=== PATIENT | male | born 1975 | race Caucasian/White ===

== ENCOUNTER → 2018-01-22 | Outpatient (CLI) | payer OTHER ==
[~2018-01-22] MED LIST: SULF1TAB35 PO
--- NOTE | 2018-01-22 17:49 | Diagnostic Imaging Report ---
PROCEDURE: MR imaging of the brain without contrast. TECHNIQUE: Multiplanar, multisequence MR imaging of the brain was performed without contrast. INDICATION: Head pain, dizziness, pain along the right. FINDINGS: There are no findings of acute or subacute ischemia. There is no intracranial hemorrhage. There is no mass or mass effect. There are no abnormal extra-axial fluid collections, and there is no evidence for an elevation of the intracerebral pressures. Orbits and paranasal sinuses are nonacute. The basilar cisterns are patent. The sulci are non-effaced. No suspicious white matter disease. IMPRESSION: Unremarkable noncontrast-enhanced brain MRI. Dictated by: Dictated on workstation # [id number]
== END ==
LOC: RAD 15:47
PROVIDERS: ATTEND Otolaryngology Otolaryngology/Facial Plastic Surgery
DX: J38.00 Paralysis of vocal cords and larynx, unspecified (principal); R42 Dizziness and giddiness; R51 Headache
CPT/HCPCS: 70551

== ENCOUNTER 2018-01-23 17:30 | Emergency (ER) | payer OTHER ==
[~2018-01-23] VITALS: Ht 198.1 cm; Wt 83.9 kg
[~2018-01-23 17:30] MED LIST changes: -CATHETER FLUSH 10 ML SYR IV PRN; -IOHEXOL 350 MG/ML 100 ML (OMNIPAQUE 350) VIAL IV ONE; -NS 250 ML (IVPB) BAG IV ONE
[2018-01-23] MEDS ORDERED: NS IV 1000 ML 1,000 ML IV SCH (18:15)
[2018-01-23] MEDS ORDERED: fentaNYL INJECTION 100 MCG/2 ML AMP IVP ONE ×2 (18:15→22:00)
--- NOTE | 2018-01-23 18:19 | ED EENT ---
History of Present Illness General Chief Complaint: Oral/Throat Problems Stated Complaint: THROAT PROBLEMS Nursing Triage Note: Pt was seen at Dr. Yun's office today for loss of voice. Pt had CT scan done here today. Pt has mass in throat and is scheduled to have biopsy done tomorrow. Source: patient Exam Limitations: no limitations History of Present Illness Date Seen by Provider: Jan 23, 2018 Time Seen by Provider: 18:15 Initial Comments Patient presents to the emergency room with reports of mass in the throat. He saw Dr. Yun for loss of voice 3 weeks. He does smoke 1.5 packs of cigarettes per day for greater than 20 years. He's been unable to eat much or drink much over the past few days due to the pain and difficulty swallowing. He also reports pain right shoulder/scapular area. No shortness of breath. No fevers. As part of his workup today with Dr. Yun he had an MRI brain which was unremarkable CT scan of the neck soft tissue with contrast showing trade of soft tissue mass in the right neck and right supraclavicular region with mass effect on the airway. Timing/Duration: other Severity: moderate Location: throat Associated Symptoms: cough Allergies and Home Medications Allergies Coded Allergies: No Known Drug Allergies (Unverified , 03/30/16) Patient Home Medication List Home Medication List Reviewed: Yes Review of Systems Constitutional: see HPI Eyes: No Symptoms Reported Ears: No Symptoms Reported Nose: no symptoms reported Mouth: no symptoms reported Throat: see HPI, pain (and 200), hoarse, aphonia, painful swallowing Respiratory: no symptoms reported Musculoskeletal: no symptoms reported Skin: no symptoms reported Neurological: No Symptoms Reported Hematologic/Lymphatic: No Symptoms Reported Immunological/Allergic: no symptoms reported Past Djlsoee-Gkfbno-Mkgrpy Hx Patient Social History Recent Foreign Travel: No Contact w/Someone Who Travel: No Recent Infectious Disease Expo: No Immunizations Up To Date Tetanus Booster (TDap): Unknown Reproductive System Hx Reproductive Disorders: No Sexually Transmitted Disease: No Family Medical History Significant Family History: No Pertinent Family Hx Physical Exam Vital Signs Vital Signs - First Documented 01/23/18 17:55 Temp 98.5 Pulse 112 Resp 18 B/P (MAP) 116/80 (92) Pulse Ox 96 O2 Delivery Room Air General Appearance: WD/WN, no apparent distress Eyes: bilateral eye normal inspection, bilateral eye PERRL, bilateral eye EOMI Ears: bilateral ear auricle normal, bilateral ear canal normal, bilateral ear TM normal Nose: normal inspection, active bleeding Mouth/Throat: normal mouth inspection Neck: full range of motion, tender lateral, tender midline, other (There is jugular vein distention on the right) Cardiovascular: regular rate, rhythm, no murmur Respiratory: lungs clear, normal breath sounds, no respiratory distress, no accessory muscle use Gastrointestinal: normal bowel sounds, non tender, soft Neurologic/Psychiatric: alert, normal mood/affect, oriented x 3 Skin: normal color, warm/dry Laceration Repair : Suture Size: 4-0 Progress/Results/Core Measures Results/Orders Lab Results Laboratory Tests Test 01/23/18 18:18 Range/Units White Blood Count 19.8 H 4.3-11.0 10^3/uL Red Blood Count 4.85 4.35-5.85 10^6/uL Hemoglobin 14.9 13.3-17.7 G/DL Hematocrit 44 40-54 % Mean Corpuscular Volume 90 80-99 FL Mean Corpuscular Hemoglobin 31 25-34 PG Mean Corpuscular Hemoglobin Concent 34 32-36 G/DL Red Cell Distribution Width 14.0 10.0-14.5 % Platelet Count 206 130-400 10^3/uL Mean Platelet Volume 9.8 7.4-10.4 FL Neutrophils (%) (Auto) 88 H 42-75 % Lymphocytes (%) (Auto) 4 L 12-44 % Monocytes (%) (Auto) 7 0-12 % Eosinophils (%) (Auto) 1 0-10 % Basophils (%) (Auto) 0 0-10 % Neutrophils # (Auto) 17.5 H 1.8-7.8 X 10^3 Lymphocytes # (Auto) 0.9 L 1.0-4.0 X 10^3 Monocytes # (Auto) 1.3 H 0.0-1.0 X 10^3 Eosinophils # (Auto) 0.2 0.0-0.3 10^3/uL Basophils # (Auto) 0.0 0.0-0.1 10^3/uL Neutrophils % (Manual) 86 % Lymphocytes % (Manual) 7 % Monocytes % (Manual) 2 % Eosinophils % (Manual) 1 % Basophils % (Manual) 0 % Band Neutrophils 4 % Blood Morphology Comment NORMAL Sodium Level 134 L 135-145 MMOL/L Potassium Level 4.5 3.6-5.0 MMOL/L Chloride Level 100 98-107 MMOL/L Carbon Dioxide Level 24 21-32 MMOL/L Anion Gap 10 5-14 MMOL/L Blood Urea Nitrogen 12 7-18 MG/DL Creatinine 0.96 0.60-1.30 MG/DL Estimat Glomerular Filtration Rate > 60 BUN/Creatinine Ratio 13 Glucose Level 94 70-105 MG/DL Calcium Level 9.8 8.5-10.1 MG/DL Total Bilirubin 0.8 0.1-1.0 MG/DL Aspartate Amino Transf (AST/SGOT) 19 5-34 U/L Alanine Aminotransferase (ALT/SGPT) 14 0-55 U/L Alkaline Phosphatase 105 40-136 U/L Total Protein 7.8 6.4-8.2 GM/DL Albumin 4.2 3.2-4.5 GM/DL My Orders Orders - FRANCIS TORRES [employer] Cbc With Automated Diff (01/23/18 18:04) Comprehensive Metabolic Panel (01/23/18 18:04) Saline Lock/Iv-Start (01/23/18 18:04) Ct Chest/Abdomen/Pelvis W (01/23/18 18:04) Fentanyl Injection (Sublimaze Injection (01/23/18 18:15) Ns Iv 1000 Ml (Sodium Chloride 0.9%) (01/23/18 18:15) Iohexol Injection (Omnipaque 350 Mg/Ml 1 (01/23/18 18:30) Ns (Ivpb) (Sodium Chloride 0.9%) (01/23/18 18:30) Pharmacy Communication (Pharmacy Communi (01/23/18 18:20) Manual Differential (01/23/18 18:18) Hydrocodone/Apap 5/325 Tablet (Lortab 5 (01/23/18 21:18) Fentanyl Injection (Sublimaze Injection (01/23/18 21:40) Fentanyl Injection (Sublimaze Injection (01/23/18 22:00) Medications Given in ED Current Medications Medications Dose Ordered Sig/Teofilo Route Start Time Stop Time Status Last Admin Dose Admin Fentanyl Citrate 50 mcg ONCE ONCE IVP 01/23/18 18:15 01/23/18 18:16 DC 01/23/18 19:01 50 MCG Fentanyl Citrate 50 mcg ONCE ONCE IVP 01/23/18 22:00 01/23/18 22:01 DC 01/23/18 21:45 50 MCG Iohexol 100 ml ONCE ONCE IV 01/23/18 18:30 01/23/18 18:31 DC 01/23/18 18:37 100 ML Sodium Chloride 250 ml ONCE ONCE IV 01/23/18 18:30 01/23/18 18:31 DC 01/23/18 18:37 80 ML Vital Signs/I&O Vital Sign - Last 12Hours 01/23/18 01/23/18 17:55 22:18 Temp 98.5 Pulse 112 70 Resp 18 18 B/P (MAP) 116/80 (92) 116/80 Pulse Ox 96 100 O2 Delivery Room Air Room Air Blood Pressure Mean: 92 Diagnostic Imaging Diagonstic Imaging: CT Comments NAME: DAVID HARRIS [facility] REC#: [id number] PT STATUS: REG CLI : 1975 PHYSICIAN: TAYLOR YUN MD ADMIT DATE: 01/23/18/RAD Signed Date of Exam: 01/23/18 CT NECK (SOFT TISSUE) W PROCEDURE: CT neck soft tissue with contrast. TECHNIQUE: Multiple contiguous axial images were obtained through the neck after the administration of contrast. INDICATION: Hoarseness and right-sided neck pain. COMPARISON: No prior studies are available for comparison. FINDINGS: The visualized intracranial structures are unremarkable. The posterior nasopharynx and oropharynx as well as the larynx are unremarkable. There appears to be a partially necrotic lymph node on the right, posterior to the right carotid and jugular vein, at the level of the thyroid cartilage measuring 2 cm in AP diameter. There is some edema in the retropharyngeal tissues. There is an infiltrative soft tissue mass identified in the lower right neck, which does produce some mass effect on the right lobe of the thyroid gland, and extends to the right supraclavicular region and into the mediastinum. This mass appears to encase and likely occlude the lower portion of the jugular vein. The mass does displace the carotid medially. In addition, there is significant mass effect upon the trachea which is displaced to the left and narrowed. The transverse dimension of the trachea is approximately 8 mm. This infiltrative process extends into the upper mediastinum. There is encasement of the great vessels. There appears to be significant mass effect on the right subclavian vein. No imaging was performed below the level of the aortic arch. Maximum transverse dimension of this infiltrative process is approximately 10.8 cm at the level of the arch. Submandibular and parotid glands are symmetric bilaterally. No discrete thyroid mass is seen. IMPRESSION: Infiltrative soft tissue mass in the right neck and right supraclavicular region is inseparable from the upper anterior and middle mediastinum. 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 This does exert mass effect on the airway. There is also significant mass effect on the upper thoracic esophagus. NAME: DAVID HARRIS [facility] REC#: [id number] PHYSICIAN: TAYLOR YUN MD CC: TAYLOR YUN MD; LINDA ROD Page 1 of 1 RADIOLOGY REPORT VIA [facility], [facility]. [place], [place] CC: TAYLOR YUN MD; LINDA ROD Page 1 of 1 RADIOLOGY REPORT NAME: HARRISDAVID A MED REC#: [id number] PT STATUS: REG CLI : 1975 PHYSICIAN: TAYLOR YUN MD ADMIT DATE: 01/22/18/RAD Signed Date of Exam: 01/22/18 MRI BRAIN W/O CONTRAST PROCEDURE: MR imaging of the brain without contrast. TECHNIQUE: Multiplanar, multisequence MR imaging of the brain was performed without contrast. INDICATION: Head pain, dizziness, pain along the right. FINDINGS: There are no findings of acute or subacute ischemia. There is no intracranial hemorrhage. There is no mass or mass effect. There are no abnormal extra-axial fluid collections, and there is no evidence for an elevation of the intracerebral pressures. Orbits and paranasal sinuses are nonacute. The basilar cisterns are patent. The sulci are non-effaced. No suspicious white matter disease. IMPRESSION: Unremarkable noncontrast-enhanced brain MRI. Dictated by: Dictated on workstation # [id number] Dict: 01/22/181727 Trans: 01/22/181939 Interpreted by: LINDA ROD Electronically signed by: LINDA ROD 01/22/181939 NAME: ROWAN HARRISANGELICA Santacruz MED REC#: [id number] PT STATUS: REG ER : 1975 PHYSICIAN: FRANCIS TORRES APRN ADMIT DATE: 01/23/18/ER Signed Date of Exam:01/23/18 CT CHEST/ABDOMEN/PELVIS W PROCEDURE: CT chest, abdomen, and pelvis with contrast. TECHNIQUE: Multiple contiguous axial images were obtained through the chest, abdomen, and pelvis after the administration of intravenous contrast. INDICATION: Mediastinal mass. FINDINGS: There is a diffusely infiltrative mass involving the mediastinum, hilar, and subcarinal regions. This is difficult to measure. This completely encases the origin of the great vessels and partially encases the ascending aorta. Mass also encases the main pulmonary artery. The heart size is normal. There is a small right pleural effusion. There is no pneumothorax. There are no discrete pulmonary nodules, masses, or infiltrates. There is no pneumothorax. The liver is normal in size and without focal lesions. Gallbladder is unremarkable. There is no biliary ductal dilatation. Spleen is normal. The pancreas, adrenal glands, and kidneys are unremarkable. Bowel gas pattern is nonspecific. Bladder is normal. There is no pelvic mass or adenopathy. There is no ascites. There is no free air. There are no focal inflammatory changes. There are several upper thoracic vertebral bodies which contain some sclerotic foci. Possibility of metastatic disease cannot be excluded. IMPRESSION: 1. Infiltrating mass involving the mediastinum, subcarinal, and hilar regions bilaterally. This is highly suspect for neoplasm, possibly lymphoma. Mass partially encases the ascending aorta and almost completely encases the main pulmonary artery. The trachea is also encompassed and is narrowed laterally. Trachea is narrowed to approximately 6 mm at the level of the clavicular heads. Further evaluation with biopsy is recommended. 2. Small right pleural effusion. 3. Sclerotic foci in several upper thoracic vertebral bodies, suspect for metastatic disease. Recommend clinical correlation and if warranted, followup with bone scan. Dictated by: Dictated on workstation # [id number] Dict: 01/23/181846 Trans: 01/23/181899 [id number] Interpreted by: SARA MALDONADO MD Electronically signed by: SARA MALDONADO MD 01/23/181899 Departure Communication (Admissions) Progress Notes 1921- discussed the case with Dr. Mayberry here for hospitalist. She would like this to him and transferred to a tertiary care center. Will arrange transfer to . Dr Yun notified as well. 2043- [facility] Dr. [place] has accepted the patient. He will go to medical telemetry bed by private vehicle. Impression Impression: Primary Impression: Mediastinal mass Additional Impressions: Dysphagia Loss of voice Disposition: XFER SHT-TRM HOSP Condition: Stable Departure-Patient Inst. Referrals: NO,LOCAL PHYSICIAN (PCP/Family) Primary Care Physician Copy Copies To 1: TAYLOR YUN MD, PETER J APRN Jan 23, 2018 18:19
[2018-01-23] MEDS ORDERED: NS 250 ML (IVPB) BAG IV ONE (18:30)
[2018-01-23] MEDS ORDERED: IOHEXOL 350 MG/ML 100 ML (OMNIPAQUE 350) VIAL IV ONE (18:30)
[2018-01-23 18:42] LABS: BASOPHILS % (AUTO) 0 % (0-10); EOSINOPHILS # (AUTO) 0.2 10^3/uL (0.0-0.3); EOSINOPHILS % (AUTO) 1 % (0-10); HEMATOCRIT 44 % (40-54); HEMOGLOBIN 14.9 G/DL (13.3-17.7); LYMPHOCYTES # (AUTO) 0.9 X 10^3 (1.0-4.0); LYMPHOCYTES % (AUTO) 4 % (12-44); MEAN CORPUSCULAR HEMOGLOBIN 31 PG (25-34); MEAN CORPUSCULAR HGB CONC 34 G/DL (32-36); MEAN CORPUSCULAR VOLUME 90 FL (80-99); MEAN PLATELET VOLUME 9.8 FL (7.4-10.4); MONOCYTES # (AUTO) 1.3 X 10^3 (0.0-1.0); MONOCYTES % (AUTO) 7 % (0-12); NEUTROPHILS # (AUTO) 17.5 X 10^3 (1.8-7.8); NEUTROPHILS % (AUTO) 88 % (42-75); PLATELET COUNT 206 10^3/uL (130-400); RED BLOOD COUNT 4.85 10^6/uL (4.35-5.85); WHITE BLOOD COUNT 19.8 10^3/uL (4.3-11.0)
[2018-01-23 18:56] LABS: ALANINE AMINOTRANSFERASE 14 U/L (0-55); ALBUMIN 4.2 GM/DL (3.2-4.5); ALKALINE PHOSPHATASE 105 U/L (40-136); BILIRUBIN,TOTAL 0.8 MG/DL (0.1-1.0); BUN/CREATININE RATIO 13; CALCIUM 9.8 MG/DL (8.5-10.1); CARBON DIOXIDE 24 MMOL/L (21-32); CHLORIDE 100 MMOL/L (98-107); CREATININE SERUM 0.96 MG/DL (0.60-1.30); GFR ESTIMATED > 60; GLUCOSE 94 MG/DL (70-105); POTASSIUM 4.5 MMOL/L (3.6-5.0); SODIUM 134 MMOL/L (135-145); TOTAL PROTEIN 7.8 GM/DL (6.4-8.2)
--- NOTE | 2018-01-23 18:58 | Diagnostic Imaging Report ---
PROCEDURE: CT chest, abdomen, and pelvis with contrast. TECHNIQUE: Multiple contiguous axial images were obtained through the chest, abdomen, and pelvis after the administration of intravenous contrast. INDICATION: Mediastinal mass. FINDINGS: There is a diffusely infiltrative mass involving the mediastinum, hilar, and subcarinal regions. This is difficult to measure. This completely encases the origin of the great vessels and partially encases the ascending aorta. Mass also encases the main pulmonary artery. The heart size is normal. There is a small right pleural effusion. There is no pneumothorax. There are no discrete pulmonary nodules, masses, or infiltrates. There is no pneumothorax. The liver is normal in size and without focal lesions. Gallbladder is unremarkable. There is no biliary ductal dilatation. Spleen is normal. The pancreas, adrenal glands, and kidneys are unremarkable. Bowel gas pattern is nonspecific. Bladder is normal. There is no pelvic mass or adenopathy. There is no ascites. There is no free air. There are no focal inflammatory changes. There are several upper thoracic vertebral bodies which contain some sclerotic foci. Possibility of metastatic disease cannot be excluded. IMPRESSION: 1. Infiltrating mass involving the mediastinum, subcarinal, and hilar regions bilaterally. This is highly suspect for neoplasm, possibly lymphoma. Mass partially encases the ascending aorta and almost completely encases the main pulmonary artery. The trachea is also encompassed and is narrowed laterally. Trachea is narrowed to approximately 6 mm at the level of the clavicular heads. Further evaluation with biopsy is recommended. 2. Small right pleural effusion. 3. Sclerotic foci in several upper thoracic vertebral bodies, suspect for metastatic disease. Recommend clinical correlation and if warranted, followup with bone scan. Dictated by: Dictated on workstation # [id number]
[2018-01-23 19:05] LABS: BAND NEUTROPHILS 4 %; BASOPHILS % (MANUAL) 0 %; EOSINOPHILS % (MANUAL) 1 %; LYMPHOCYTES % (MANUAL) 7 %; MONOCYTES % (MANUAL) 2 %; NEUTROPHILS % (MANUAL) 86 %; RBC MORPH NORMAL
[2018-01-23] MEDS: HYDROcodone/APAP 5 MG/325 MG (LORTAB) TAB ONE ×2 (21:24→21:30)
[2018-01-23] MEDS ORDERED: fentaNYL INJECTION 100 MCG/2 ML AMP ONE (21:40)
[2018-01-23 22:18] VITALS: BP 116/80
== END 2018-01-23 22:18 | disposition short-term general hospital (02) ==
LOC: EDUNIT# 17:30 → ER 17:31
DX: J98.59 Other diseases of mediastinum, not elsewhere classified (principal); R13.10 Dysphagia, unspecified; R49.1 Aphonia; F17.210 Nicotine dependence, cigarettes, uncomplicated
CPT/HCPCS: 36415; 71260; 74177; 80053; 85007; 85027; 96361; 96374; 96376

== ENCOUNTER → 2018-01-23 | Outpatient (CLI) | payer OTHER ==
[~2018-01-23] MED LIST changes: +CATHETER FLUSH 10 ML SYR IV PRN; +IOHEXOL 350 MG/ML 100 ML (OMNIPAQUE 350) VIAL IV ONE; +NS 250 ML (IVPB) BAG IV ONE
--- NOTE | 2018-01-23 14:13 | Diagnostic Imaging Report ---
PROCEDURE: CT neck soft tissue with contrast. TECHNIQUE: Multiple contiguous axial images were obtained through the neck after the administration of contrast. INDICATION: Hoarseness and right-sided neck pain. COMPARISON: No prior studies are available for comparison. FINDINGS: The visualized intracranial structures are unremarkable. The posterior nasopharynx and oropharynx as well as the larynx are unremarkable. There appears to be a partially necrotic lymph node on the right, posterior to the right carotid and jugular vein, at the level of the thyroid cartilage measuring 2 cm in AP diameter. There is some edema in the retropharyngeal tissues. There is an infiltrative soft tissue mass identified in the lower right neck, which does produce some mass effect on the right lobe of the thyroid gland, and extends to the right supraclavicular region and into the mediastinum. This mass appears to encase and likely occlude the lower portion of the jugular vein. The mass does displace the carotid medially. In addition, there is significant mass effect upon the trachea which is displaced to the left and narrowed. The transverse dimension of the trachea is approximately 8 mm. This infiltrative process extends into the upper mediastinum. There is encasement of the great vessels. There appears to be significant mass effect on the right subclavian vein. No imaging was performed below the level of the aortic arch. Maximum transverse dimension of this infiltrative process is approximately 10.8 cm at the level of the arch. Submandibular and parotid glands are symmetric bilaterally. No discrete thyroid mass is seen. IMPRESSION: Infiltrative soft tissue mass in the right neck and right supraclavicular region is inseparable from the upper anterior and middle mediastinum. 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 This does exert mass effect on the airway. There is also significant mass effect on the upper thoracic esophagus. Results were called to Dr. Shen Yun prior to this dictation. Dictated by: Dictated on workstation # [id number]
== END ==
LOC: RAD 11:54
PROVIDERS: ATTEND Otolaryngology Otolaryngology/Facial Plastic Surgery
DX: J38.00 Paralysis of vocal cords and larynx, unspecified (principal); R22.1 Localized swelling, mass and lump, neck
CPT/HCPCS: 70491

== ENCOUNTER 2018-03-06 09:51 | Inpatient (IN) | payer OTHER ==
[~2018-03-06] VITALS: Ht 198.1 cm; Wt 72.0 kg
[~2018-03-06 09:51] MED LIST changes: +CLON0.5T3 PEG; +CLON0.5T3 PO; +ENOX80DI7 SQ; +LORA1TAB PEG; +NICO-588 TD; +ONDA8TAB12 PEG; +PROC10TA10 PEG; +RT-ALBUINH IH; +SIME80TA16 PO; +TRAM50TA2 PEG
[2018-03-06 10:00] VITALS: BP 124/86
[2018-03-06] MEDS ORDERED: DOCU50LI PEG (10:51)
[2018-03-06] MEDS ORDERED: HYDR15SO8 PEG (10:51)
[2018-03-06] MEDS ORDERED: ONDA8TAB12 PEG (10:51)
[2018-03-06] MEDS ORDERED: RIVA20TA PEG (10:51)
[2018-03-06] MEDS ORDERED: PRED10TA22 PEG (10:51)
[2018-03-06] MEDS ORDERED: SERT50TA9 PO (10:51)
[2018-03-06] MEDS ORDERED: SCOP1PAT11 TOP (10:51)
[2018-03-06] MEDS ORDERED: IPRA3AMP INH (10:51)
[2018-03-06] MEDS ORDERED: LORA1TAB PEG (10:51)
[2018-03-06] MEDS ORDERED: PROC10TA10 PEG (10:51)
[2018-03-06] MEDS ORDERED: RISP0.253 PO (10:51)
--- NOTE | 2018-03-06 12:59 | Physical Therapy Evaluation ---
PT Evaluation-General Medical Diagnosis Admission Date March 06, 2018 at 11:30 Medical Diagnosis: metastatic lung cancer/pneumonia Onset Date: Feb 15, 2018 Therapy Diagnosis Therapy Diagnosis: generalized weakness/debility Height/Weight Height (Feet): 6 Height (Inches): 6.00 Weight (Pounds): 165 Weight (Ounces): 1.0 Precautions Precautions/Isolations: Standard Precautions Weight Bear Status Right Lower Extremity: Right Full Weight Bearing Left Lower Extremity: Left Full Weight Bearing Referral Physician: Adelso Reason for Referral: Evaluation/Treatment Medical History Pertinent Medical History: Smoking Additional Medical History recent diagnosis of metastatic lung cancer with mass pushing against his esophagus Current History transfer to ARU Reviewed History: Yes Social History Home: Single Level Current Living Status: Spouse Entry Into Home: Stairs With Railing Prior/Core FIM Prior Level of Function Functional Charles Measure 0=Not Assessed/NA 4=Minimal Assistance 1=Total Assistance 5=Supervision or Setup 2=Maximal Assistance 6=Modified Charles 3=Moderate Assistance 7=Complete Charles Bed Mobility: 7 Transfers (B,C,W/C) (FIM): 7 Gait: 7 Locomotion: 7 PT Evaluation-Current Subjective Patient reports fatigue on this date and is requiring O2. Pain Numeric Pain Scale: 5-Moderate Pain Location: Left Location Body Site: Side Pain Description: Pressure Objective Patient Orientation: Normal For Age Problem Solving: Fair Attachments: Oxygen, IV ROM/Strength ROM Lower Extremities bilateral LE WNL Strenght Lower Extremities 3/5 grossly bilateral LE and increase in weakness from initial evaluation in ICU. Integumentary/Posture Integumentary refer to nursing notes Bowel Incontinence: No Bladder Incontinence: No Posture WNL Neuromuscular (Tone, Coordination, Reflexes) grossly intact (he is very deconditioned) Sensory Vision: Wears Glasses Hearing: Functional Sensation Right Lower Extremit: Intact Sensation Left Lower Extremity: Intact Transfers Functional Charles Measure 0=Not Assessed/NA 4=Minimal Assistance 1=Total Assistance 5=Supervision or Setup 2=Maximal Assistance 6=Modified Charles 3=Moderate Assistance 7=Complete IndependenceIRFPAI Quality Coding Scale 6 Independent with activity with or without an assistive device 5 Patient requires set up or clean up by helper. Patient completes activity by themselves 4 Supervision or touching assist (CGA). [place] provide cues , steadying assist 3 The helper provides less than half the effort to complete the activity 2 The helper provides more than half the effort to complete the activity 1 Dependent. The helper does all the effort to complete an activity 7 Patient refused to complete or attempt activity 9 The patient did not perform the activity before the current illness or injury 88 Not attempted due to Medical conditions or safety concerns Transfers (B, C, W/C) (FIM): 4 Scootin Rollin Roll Left to Right (QC): 5 Supine to/from Sit: 4 Sit to/from Stand: 4 bed t/f WC(FIM only if WC use): 4 Sit to Lying (QC): 4 Lying to Sitting/Side of Bed(Q: 4 Sit to Stand (QC): 4 Chair/Kpb-qb-Npvyy Xfer(QC): 4 Car Transfer (QC): 4 Gait Does the Patient Walk?: Yes Mode of Locomotion: Walk Anticipated Mode of Locomotion: Walk Gait (FIM): 1 Distance (FIM): 1=up to 49 ft Walk 10 feet (QC): 4 Walk 50 ft with 2 Turns(QC): 88 Walk 150 ft (QC): 88 Walking 10ft/uneven surface-QC: 4 Distance: 45' x 2 Gait Level of Assist: 4 Gait Persons Needed: 1 Gait Assistive Device: FWW Comments/Gait Description very slow, reciprocal pattern, however, fatigues quickly requiring sitting recovery periods to decrease SOA Stairs Stairs (FIM): 1 #of Steps: 1 Level of Assist: 4 1 Step (curb) (QC): 4 4 Steps (QC): 88 Assistive Device: Walker 12 Steps (QC): 88 Balance Sitting Static: Normal Sitting Dynamic: Normal Standing Static: Fair Standing Dynamic: Fair Picking up an Object (QC): 4 Treatment Gait training with FWW, minimal assist for safety and due to patient LOB with self correction. Patient ambulated 45' x 2 minimal assist. Assessment/Needs 42 y.o. male, will benefit from skilled PT to address functional strength and mobility to improve current LOF. Patient is very limited at this time due to medical status and extended ICU stay due to respiratory issues. Rehab Potential: Guarded Post Rehab Potential-Barriers: metastatic cancer PT [facility] Goals Publicity Consultant Goals PT Publicity Consultant Goals Time Frame: Mar 28, 2018 Transfers (B,C,W/C) (FIM): 6 Sit to Lying (QC): 6 Lying-Sitting on Side/Bed(QC): 6 Sit to Stand (QC): 6 Rollin Roll Left to Right (QC): 6 Chair/Gfc-gm-Ynjxx Xfer(QC): 6 Car Transfer (QC): 6 Does the Patient Walk: Yes Gait (FIM): 6 Gait distance (FIM): 3=150 ft Distance: 150' Walk 10 feet (QC): 6 Walk 10ft-Uneven Surface(QC): 6 Walk 50ft with 2 Turns (QC): 6 Walk 150 ft (QC): 6 Gait Level of Assist: 6 Gait Assistive Device: FWW, Cane Single Point Stairs (FIM): 5 # of Steps: 5 1 Step (curb) (QC): 5 4 Steps (QC): 5 12 Steps (QC): 5 Stairs Level Of Assist: 5 Picking up an Object (QC): 5 PT Plan Problem List Problem List: Activity Tolerance, Functional Strength, Balance, Gait, Transfer , Bed Mobility Treatment/Plan Treatment Plan: Continue Plan of Care Treatment Plan: Bed Mobility, Education, Functional Activity Isaiah, Functional Strength, Group Therapy, Gait, Safety, Therapeutic Exercise, Transfers Treatment Duration: Mar 28, 2018 Frequency: At least 5 of 7 days/Wk (IRF) Estimated Hrs Per Day: 1.5 hours per day Patient and/or Family Agrees t: Yes Safety Risks/Education Patient Education: Gait Training, Safety Issues Teaching Recipient: Patient Teaching Methods: Demonstration, Discussion Response to Teaching: Verbalize Understanding, Return Demonstration Discharge Recommendations Therapy D/C Recommendations: Home w/ Family Support, Physical Therapy Home Care Time/GCodes Time In: 1130 Time Out: 1230 Total Billed Treatment Time: 60 [facility] HELEN NG PT March 06, 2018 12:59
[2018-03-06] MEDS ORDERED: LORazepam INJ 2 MG/ML (ATIVAN) VIAL IVP PRN (13:00)
[2018-03-06] MEDS: LORazepam INJ 2 MG/ML (ATIVAN) VIAL IVP PRN ×2 (13:14→22:48)
[2018-03-06] MEDS ORDERED: CLON0.5T3 PO (13:21)
[2018-03-06] MEDS ORDERED: NICO-588 TD (13:21)
[2018-03-06] MEDS ORDERED: TRAM50TA2 PO (13:21)
[2018-03-06] MEDS ORDERED: SIME80TA16 PEG (13:21)
[2018-03-06] MEDS ORDERED: RT-ALBUINH IH (13:21)
[2018-03-06] MEDS: HYDROmorphone 1 MG/ML (DILAUDID) 1 ML SYRINGE IV PRN ×2 (14:26→20:01)
[2018-03-06] MEDS ORDERED: PROCHLORPERAZINE 10 MG TAB (COMPAZINE) PEG PRN (14:30)
[2018-03-06] MEDS ORDERED: ONDANSETRON 4 MG/5 ML ORAL SOLN (ZOFRAN) 5 ML PEG PRN (14:30)
--- NOTE | 2018-03-06 14:34 | Physical Therapy Daily Note ---
PT Daily Note-Current Subjective Patient reports fatigue. Agrees to exercises. Pain Numeric Pain Scale: 0-No Pain Location: No Pain Reported Mental Status Patient Orientation: Normal For Age Attachments: Oxygen, PEG Tube, IV Transfers Functional [place] Measure 0=Not Assessed/NA 4=Minimal Assistance 1=Total Assistance 5=Supervision or Setup 2=Maximal Assistance 6=Modified [place] 3=Moderate Assistance 7=Complete IndependenceIRFPAI Quality Coding Scale 6 Independent with activity with or without an assistive device 5 Patient requires set up or clean up by helper. Patient completes activity by themselves 4 Supervision or touching assist (CGA). Johnson provide cues , steadying assist 3 The helper provides less than half the effort to complete the activity 2 The helper provides more than half the effort to complete the activity 1 Dependent. The helper does all the effort to complete an activity 7 Patient refused to complete or attempt activity 9 The patient did not perform the activity before the current illness or injury 88 Not attempted due to Medical conditions or safety concerns Transfers (B, C, W/C) (FIM): 4 Scootin Rollin Roll Left to Right (QC): 5 Supine to/from Sit: 5 Sit to/from Stand: 4 Sit to Lying (QC): 5 Sit to Stand (QC): 4 Chair/Kus-rj-Onuvg Xfer(QC): 4 Bed to/from Chair: 4 minimal assist with sit to stand and SPT w/c to bed. Weight Bearing Right Lower Extremity: Right Full Weight Bearing Left Lower Extremity: Left Full Weight Bearing Exercises Supine Ex: Ankle pumps, Quad Set, Heel Slides, Straight leg raise, Hip abd/add Supine Reps: 10 (AAROM bilaterally with recovery periods due to weakness/ fatigue) Assessment Patient tolerated treatment and is in bed with needs met. PT Alf Goals Alf Goals PT Supervisor Display Fabrication Goals Time Frame: Mar 28, 2018 Transfers (B,C,W/C) (FIM): 6 Sit to Lying (QC): 6 Lying-Sitting on Side/Bed(QC): 6 Sit to Stand (QC): 6 Rollin Roll Left to Right (QC): 6 Chair/Qfa-jm-Krmnc Xfer(QC): 6 Car Transfer (QC): 6 Does the Patient Walk: Yes Gait (FIM): 6 Gait distance (FIM): 3=150 ft Distance: 150' Walk 10 feet (QC): 6 Walk 10ft-Uneven Surface(QC): 6 Walk 50ft with 2 Turns (QC): 6 Walk 150 ft (QC): 6 Gait Level of Assist: 6 Gait Assistive Device: FWW, Cane Single Point Stairs (FIM): 5 # of Steps: 5 1 Step (curb) (QC): 5 4 Steps (QC): 5 12 Steps (QC): 5 Stairs Level Of Assist: 5 Picking up an Object (QC): 5 PT Plan Treatment/Plan Treatment Plan: Continue Plan of Care Treatment Plan: Bed Mobility, Education, Functional Activity Isaiah, Functional Strength, Group Therapy, Gait, Safety, Therapeutic Exercise, Transfers Treatment Duration: Mar 28, 2018 Frequency: At least 5 of 7 days/Wk (IRF) Estimated Hrs Per Day: 1.5 hours per day Patient and/or Family Agrees t: Yes Time/GCodes Time In: 1415 Time Out: 1430 Total Billed Treatment Time: 15 Total Billed Treatment 1 visit EX 15 min HELEN NG PT March 06, 2018 14:34
[2018-03-06] MEDS: CATHETER FLUSH 10 ML SYR IV SCH ×2 (14:42→20:01)
--- NOTE | 2018-03-06 15:43 | Occupational Therapy Eval ---
OT Evaluation-General/PLF Medical Diagnosis Admission Date March 06, 2018 at 11:30 Medical Diagnosis: metastatic lung cancer/pneumonia Onset Date: Feb 15, 2018 Therapy Diagnosis Therapy Diagnosis: decr self care, weakness, decr act evelia, decr funct mobility Height/Weight Height (Feet): 6 Height (Inches): 6.00 Weight (Pounds): 159 Weight (Ounces): 6.0 Precautions Precautions/Isolations: Standard Precautions Comments Pt is NPO at this time Referral Physician: Adelso Referral Reason: Evaluation/Treatment Medical History Pertinent Medical History: Smoking Additional Medical History Recent diagnosis of lung cancer, mass encroaching on trachea and esophagus. Vocal cord paralysis. Feeding tube. DC from on , had chemo and radiation there. Current History Trach came oout and kelle couldn't get it back in so came to hospital. Per EMS , with fever, pneumonia,anemia. 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 Drove. 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 Pain rated 2-3 in left abdomen, described as aching. Appearance Alert, cooperative, whispers Mental Status/Objective Attachments: IV, Oxygen (over trach), PEG Tube, Telemetry Current Glasses/Contacts: Yes Hearing Aids: No Dentures/Partials: Yes (upper) Hand Dominance: Right Upper Extremity ROM Grossly WFl bilat but limited by edema in bilat UEs Upper Extremity Strength grossly 4/5 bilat, with decreased activity tolerance Edema: Edema bilat UEs, has decreased from ICU admission ADL-Treatment ADL-Current Room set up with BSC, for use either in his room or in bathroom, depending on adaptability of tubings and cables. Functional [place] Measure 0=Not Assessed/NA 4=Minimal Assistance 1=Total Assistance 5=Supervision or Setup 2=Maximal Assistance 6=Modified [place] 3=Moderate Assistance 7=Complete IndependenceIRFPAI Quality Coding Scale 6 Independent with activity with or without an assistive device 5 Patient requires set up or clean up by helper. Patient completes activity by themselves 4 Supervision or touching assist (CGA). [place] provide cues , steadying assist 3 The helper provides less than half the effort to complete the activity 2 The helper provides more than half the effort to complete the activity 1 Dependent. The helper does all the effort to complete an activity 7 Patient refused to complete or attempt activity 9 The patient did not perform the activity before the current illness or injury 88 Not attempted due to Medical conditions or safety concerns Eating (FIM): 1 (Pt as tube feedings and is unable to manage them himself) Eating (QC): 1 Other Treatments Pt able to move from supine to sit EOB with SBA and held pt manage tubes and wires. Sit to stand with min assist, FWW. Transfer to w/c with min assist, a little help moving walker. Cues for hand placement for sitting. Pt needed to be up in w/c for transport cancer center for mapping for radiation tx. Pt very fatigued after transfer and needed recovery period. Pt left up in w/c, all needs met. Education OT Patient Education: Purpose of tx/functional activities, Reviewed precautions , Rehab process, Safety issues, Transfer techniques Teaching Recipient: Patient Teaching Methods: Discussion Response to Teaching: Verbalize Understanding OT Short Term Goals Short Term Goals Time Frame: March 14, 2018 Toileting(FIM): 5 Toilet/Commode Transfer(FIM): 5 Additional Short Term Goals: 1-Demonstrate ADL Tasks, 2-Verbalize Understanding , 3-ImproveStrength/Isaiah 1=Demonstrate adherence to instructed precautions during ADL tasks. 2=Patient will verbalize/demonstrate understanding of assistive devices/ modifications for ADL. 3=Patient will improve strength/tolerance for activity to enable patient to perform ADL's. OT Mechanical Engineering Manager Goals Intermediate Goals Time Frame: Mar 28, 2018 Eating (FIM): 6 Eating (QC): 6 Groomin Oral Hygiene (QC): 6 Bathing(FIM): 6 Shower/Bathe Self (QC): 6 Upper Body Dressing(FIM): 6 Upper Body Dressing (QC): 6 Lower Body Dressing(FIM): 6 Lower Body Dressing (QC): 6 On/Off Footwear (QC): 6 Toileting(FIM): 6 Toileting Hygiene (QC): 6 Toilet/Commode Transfer(FIM): 6 Toilet/Commode Transfer (QC): 6 Tub Transfer(FIM): 6 (or shower) Shower Transfer(FIM): 6 (or tub) Additional Goals: 1-Demonstrate ADL Tasks, 2-Verbalize Understanding, 3- ImproveStrength/Isaiah 1=Demonstrate adherence to instructed precautions during ADL tasks. 2=Patient will verbalize/demonstrate understanding of assistive devices/ modifications for ADL. 3=Patient will improve strength/tolerance for activity to enable patient to perform ADL's. OT Education/Plan Problem List/Assessment Assessment: Decreased Activ Tolerance, Decreased UE Strength, Dependent Transfers, Impaired Funct Balance, Impaired Self-Care Skills Pt would benefit from skilled OT to increase his independence in basic self care to allow him to safely return home. Discharge Recommendations Plan/Recommendations: Continue POC Treatment Plan/Plan of Care Treatment,Training & Education: Yes Patient would benefit from OT for education, treatment and training to promote independence in ADL's, mobility, safety and/or upper extremity function for ADL' s. Plan of Care: ADL Retraining, Caregiver Training, Functional Mobility, Group Exercise/Act as Ind (education, exercise, activity tolerance, funct activities) , UE Funct Exercise/Act, UE Neuromus Re-Ed/Coord, OTHER (edema management) Treatment Duration: Mar 28, 2018 Frequency: Modified Program (IRF) Estimated Hrs Per Day: 1.5 hours per day Agreement: Yes Rehab Potential: Poor Time/GCodes Start Time: 12:30 Stop Time: 13:00 Total Time Billed (hr/min): 30 Billed Treatment Time visit, 15 minutes evaluation moderate intensity, 15 minutes functional activity KERWIN GARCIAS OT March 06, 2018 15:43
--- NOTE | 2018-03-06 16:31 | ST Cognitive Linguistic Eval ---
Speech Evaluation-General Medical Diagnosis Metastatic Lung Cancer/Pneumonia Onset Date: Feb 15, 2018 Therapy Diagnosis Therapy Diagnosis: Cognitive Linguistic Skill WNL, Aphonia Precautions Precautions/Isolations: Standard Precautions Referral Referring Physician: Dr. Nicanor Darden Reason for Referral: Evaluation/Treatment Cognitive, Voice, Speech, and Language Evaluation Medical History Pertinent Medical History: Smoking Current History The patient was recently admitted to [facility] with a diagnosis of metastatic lung cancer and tracheostomy malfunction. Due to respiratory effort, he was placed on the ventilator for support, however, was recently removed. Reviewed History: Yes Social History Current Living Status: Spouse Speech PLF-Current Status Prior Level of Function The patient denied prior challenges with speech, language, or cognition. Subjective The patient was seated upright in bed upon entrance. The patient greeted the patient appropriately and was agreeable to participation in the cognitive, speech, voice, and language assessment. Language Eval: Auditory Comprehends Simple Yes/No Ques: Functional Indent/Objects Multiple Mixon: Functional Ident/Pics in Multiple Mixon: Functional Follows 1-Step Commands: Functional Follows Complex Directions: Functional Follows General Conversations: Functional Language Eval: Verbal Language Completes Spontaneous Greeting: Functional Produces Auto, Serial Info: Functional Imitates Simple Words/Phrases: Functional Word Finding: Functional Requests Basic Needs: Functional States Basic Personal Info: Functional Expresses Complex Ideas: Functional Cognitive Patient Orientation The patient was independently oriented to self, location, month, day of week, date, and year. Objective Cognitive Domain Attention: WNL Memory: WNL Problem Solving: Functional Executive Functions: WNL Objective Oral Motor/Speech Production The patient has a #6 Shiley cuffed tracheostomy tube in place. The cuff is currently deflated. Additionally, a venti-mask is placed on the tracheostomy site for improved humidification. At this time, the patient is aphonic due to tracheostomy placement. Per patient, he has attempted digital occlusion, however , has been unsuccessful at voicing. The patient over-articulates words well, which does aid in intelligibility. Impression The patient displays cognitive linguistic skills within normal limits. The patient demonstrates aphonia secondary to the placement of the tracheostomy tube. Communication/Social Cognition Comprehension: 6 (The patient wears glasses.) Expression: 6 (The patient complex information thoroughly to the clinician, however, due to aphonia would benefit from augmentative devices (dry erase board , [place] Speaking Valve).) Social Interaction: 6 (Anti-Depressant) Problem Solvin Memory: 7 Speech Patient Assess Expression of Ideas/Wants: Expression (4) Understanding Vebal Content: Understands (4) Brief Interview-Mental Status: Yes Repetition of Three Words: Three (3) Temporal Orientation: Year: Correct (3) Temporal Orientation: Month: Accurate within 5 days(2) Temporal Orientation: Day: Correct (1) Recall : Wear to say "Sock": Yes, no cue required (2) Recall : Color: Yes, no cue required (2) Recall : Bed: Yes, no cue required (2) Speech Short Term Goals Short Term Goals Short Term Goals 1. The patient will tolerate trials of the [place] Speaking Valve for a duration of two minutes. Time Frame-STG: One Week Speech Registered Dental Hygienist Goals Half-Way Goals 1. The patient will independently don his [place] Speaking Valve. 2. The patient will tolerate placement of the Passy-Arely Speaking Valve indefinitely with the exception of periods of sleep or high exertion. Time Frame: Three Weeks Comprehension: 6 (The patient's FIM score will not improve as he will conistently require glasses.) Expression: 6 (The patient's FIM score will not improve as he will consistently required a Passy Arely Valve for improved intelligibility due to tracheostomy.) Social Interaction: 6 (The patient's FIM score will not improve as he requires an anti-depressant.) Problem Solvin Memory: 7 Speech-Plan Treatment Plan Speech Therapy Treatment Plan: Continue Plan of Care Continue skilled speech pathology to target functional expressive communication through vocalization. Treatment Duration: March 27, 2018 Frequency: 3 times per week Estimated Hrs Per Day: .5 hour per day Rehab Potential: Poor Safety Risks/Education Teaching Recipient: Patient Teaching Methods: Discussion Response to Teaching: Verbalize Understanding Education Topics Provided: Results, Recommendations, Plan of Care Time Speech Therapy Time In: 15:40 Speech Therapy Time Out: 16:10 Total Billed Time: 30 Billed Treatment Time [address] March 06, 2018 16:31
[2018-03-06] MEDS: RT-ALBUTEROL/IPRATROPIUM 3 ML (DUONEB) VIAL INH SCH ×2 (18:16→21:25)
[2018-03-06 18:39] VITALS: BP 136/84
--- NOTE | 2018-03-06 20:17 | PM&R Post Admission Assessment ---
Post Admission Physician Asses Date seen by provider: March 06, 2018 Time seen by provider: 13:30 Admisison Dx: (1) Myopathy The preadmission screen agrees with the post admission assessment that the patient is a good candidate for inpatient rehabilitation. The patient will have a comprehensive program of inpatient rehabilitation with a goal of maximizing level of functional independence prior to discharge home with kelle and [facility]. The patient will have PT/OT ninety minutes per day, each discipline, five days a week for 2 weeks for gait, strengthening, conditioning, balance, ADLs, any patient/family/caregiver training as necessary. Speech therapy to do cognitive speech and swallow assessment and treat as indicated five days a week for 2 weeks 30-45 min per day. Rehabilitation nursing to assist with bowel, bladder, skin, wound care, medication administration, pain management.Tube feed administration Equipment Installer to assist with discharge planning, community reentry. SCD's for DVT prophylaxis Nutritional services to monitor labs and tube feeds and and wt and make recs as needed.ST to try trial of [place] valve to augment Communication. He appears to be well motivated to participate in three hours of therapy a day. He should be able to tolerate three hours of therapy a day from a medical standpoint. He should benefit from the three hours of therapy a day. He has a reasonable discharge plan, reasonable discharge rehabilitation goals and a supportive fiancee. He has various comorbidities that need to be closely monitored with medications and treatments adjusted on a daily basis as needed. These include: Lung Ca with mets s/p XRT and chemo [facility] Pleural effusion s/p thoracentesis Resp failure on 02 by Trach collar NPO status due to Esophagus and Vocal cord/Trachea involvement Barriers to discharge for this patient who had been independent prior to this are for him to be modified independent to supervision for ADLs and mobility skills as weel as communication prior to discharge home with kelle, so as to lessen the burden of the caregivers. Risks for this patient include: 1. Fall 2. Fracture 3. DVT 4. Pulmonary embolism 5. Wound infection 6. Skin breakdown 7. Contractures 8. Poorly controlled pain 9. Urinary retention 10. UTI 11. Respiratory infection 12. Aspiration 13. Recuurent Lung ca with mets Estimated Length of Stay: 14 days Prognosis: Rehab prognosis appears good short term for goal of discharge home with kelle modified independent to supervision for ADLs and mobility skills.as well as improved communication skills.Will f/u with sstaff re more exact prognosis for this patient General: Alert, Oriented X3, Cooperative, No Acute Distress HEENT: Atraumatic, PERRLA, EOMI, Mucous Memb Moist/[place], Other (NPO) Neck: Other (Trach collar in place with 28% 02) Lungs: Clear to Auscultation, Other (s/p infusaport) Heart: Regular Rate Abdomen: Normal Bowel Sounds, Soft, No Tenderness, Other (s/p peg) Extremities: No Edema Neuro: Other (Generalized weakness Lower limbs > upper) Psych/Mental Status: Other (Flat affect appears depressed) RACHNA SANCHEZ MD March 06, 2018 20:17
[2018-03-06] MEDS: RIVAROXABAN 20 MG TABLET (XARELTO) PEG SCH (20:58)
[2018-03-06] MEDS: SERTRALINE 50 MG (ZOLOFT) TABLET PEG SCH (20:59)
[2018-03-06] MEDS: risperiDONE 0.25 MG (RisperDAL) TAB PEG SCH (20:59)
--- NOTE | 2018-03-06 21:09 | HISTORY AND PHYSICAL ---
DATE OF SERVICE: 03/06/2018 ADMISSION HISTORY AND PHYSICAL CHIEF COMPLAINT: Generalized weakness. HISTORY OF PRESENT ILLNESS: The patient is a 42-year-old male who was admitted to [facility] on 02/15 via the ED after he was being cared for by his fiancee in [place], [place]. He had recently been diagnosed and treated at [facility] for lung cancer with metastases pressing on the esophagus and trachea. He has had tracheostomy and is currently on tube feeds. Apparently, he has some shortness of breath, fever and his trach came out. The patient was found to be septic and respiratory failure. He was admitted to the ICU and followed by hospitalist service and etl bi developer. His trach was replaced. He is currently on O2 by trach collar and on tube feeds. He is n.p.o. His communication is impeded as he does not have a Passy[place] valve. He has generalized weakness from this and is referred to inpatient rehabilitation unit. 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 Currently, communication is impaired as per above. He is n.p.o. and dependent for tube feeds. He fatigues easily. He has dyspnea on exertion. His commercial insurance has approved his stay on the rehab unit. He is min assist for transfers and required assistance to manage his tubes. He is reported to be continent of bowel and bladder. He is min assist for gait with front wheel walker, very slow, fatigues easily and requires sitting for recovery. This did decrease shortness of breath. PAST MEDICAL HISTORY: 1. Lung cancer with metastases. 2. Status post trach. 3. Status post PEG n.p.o. 4. Status post therapeutic thoracentesis on 02/26/2018 for pleural effusion. 5. 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 PAST SURGICAL HISTORY: As per above. He has had core biopsy of the supraclavicular mass. ALLERGIES: No known medication allergies. FAMILY HISTORY: Noncontributory. SOCIAL HISTORY: No alcohol. Former smoker, quit on 01/24/2018. He has an Infusaport placed. He lives with his fiancee in [place], [place]. REVIEW OF SYSTEMS: Ten-point review of systems significant for generalized weakness, dyspnea on exertion, fatigue. MEDICATIONS: Transderm scopolamine patch 1.5 mg q.3 days, prednisone 10 mg per PEG daily, Risperdal 0.25 mg per PEG b.i.d., Xarelto 20 mg per PEG at bedtime, Zoloft 50 mg per PEG at bedtime, DuoNeb treatments q.4 hours, Zofran 8 mg q.8 hours p.r.n. for nausea and emesis per PEG, Compazine 10 mg per PEG q.i.d. p.r.n. nausea and vomiting, Dilaudid 1 mg IV q.4 hours p.r.n. severe pain, lorazepam 0.5 mg IV q.4 hours p.r.n. agitation. PHYSICAL EXAMINATION: GENERAL: Significant for a thin male appearing his stated age, sitting in wheelchair, in no acute distress with somewhat flat affect. VITAL SIGNS: He is afebrile, pulse is 110, respirations 16, blood pressure 136/84, O2 sat 95% on trach collar 28%. HEENT: Vision and hearing appear grossly intact. No oral lesion is noted. Speech impeded by trach collar. NECK: Trach collar in place. HEART: Rapid regular rhythm. CHEST: Clear. ABDOMEN: Soft, nontender. Bowel sounds present. PEG tube in place. EXTREMITIES: No leg edema. No calf tenderness. MUSCULOSKELETAL: He has functional active range of motion in all 4 extremities. Strength in lower limbs 3/5. Cognition appears grossly intact. His affect is somewhat flat. He has some edema present in hands. He is right hand dominant. Strength in the upper limbs 4/5. IMPRESSION: 1. Critical illness myopathy, status post respiratory failure. 2. Lung cancer with mets to the esophagus, supraclavicular node and trachea. 3. Tobaccoism, currently abstaining. 4. Reactive depression. 5. Neutropenic fever, resolved. 6. Status post tracheostomy. 7. Pleural effusion, improved status post thoracentesis. 8. Status post PEG tube placement. PLAN: The patient is admitted to inpatient rehabilitation unit with goal of maximizing level of functional independence prior to discharge home with his fiancee. The patient will have PT, OT 90 minutes a day each discipline, 5 days a week for 14 days. Please see post-admission physician evaluation for details of plan of care. Speech therapy to assist with communication augmentation with trial of Passy-Arely valve. The patient is n.p.o. for now. health services director to assist with discharge planning, community reentry. Nutritional services to monitor tube feeds and make further recommendations as needed. Rehabilitation nursing to assist with bowel, bladder, skin care, medication administration, tube feed administration, and pain management. Follow up with hospitalist service as per their schedule. ESTIMATED LENGTH OF STAY: 14 days. PROGNOSIS: Rehab prognosis appears good short-term for goal of discharging home with kelle, hopefully modified independent to supervision for ADLs, mobility skills with improved endurance, decreased shortness of breath and improved communication with a Passy-Arely valve hopefully as tolerated and independence for tube feed administration. DIET: Tube feeds at 30 mL per hour continuous. CODE STATUS: Assumed full code for now. Job ID: [id number] DocumentID: [id number] Dictated Date: 03/06/2018 20:07:42 Natural Gas Plant Supervisor Date: 03/06/2018 21:08:54 Dictated By: RACHNA SANCHEZ MD [facility]
[2018-03-07] MEDS: HYDROmorphone 1 MG/ML (DILAUDID) 1 ML SYRINGE IV PRN ×3 (01:29→23:19)
[2018-03-07] MEDS: RT-ALBUTEROL/IPRATROPIUM 3 ML (DUONEB) VIAL INH SCH ×6 (01:56→23:14)
[2018-03-07] MEDS: LORazepam INJ 2 MG/ML (ATIVAN) VIAL IVP PRN (03:57)
[2018-03-07] MEDS: CATHETER FLUSH 10 ML SYR IV SCH ×3 (03:57→22:49)
[2018-03-07] MEDS: predniSONE 10 MG TAB PEG SCH (06:24)
[2018-03-07 06:38] VITALS: BP 141/87
--- NOTE | 2018-03-07 09:00 | PM & R (SOAP) Progress Note ---
Subjective This was a face to face visit with the patient. Date Seen by Provider: March 07, 2018 Time Seen by Provider: 07:50 Subjective/Events-last exam Patient was seen in his room this AM Patient adjusting well to unit Patient Min assist for transfers Tolerating Tube feeds Review of Systems HEENT: Other (Dysphagia) Neurological: Weakness Objective Physician Exam Last Set of Vital Signs Vital Signs Date Time Temp Pulse Resp B/P (MAP) Pulse Ox O2 Delivery O2 Flow Rate FiO2 03/07/18 06:48 95 Trach Collar 21 03/07/18 06:38 99.9 117 17 141/87 (105) 28.00 3.00 Capillary Refill : I&O Intake and Output 03/07/18 00:00 Intake Total 200 ml Output Total 200 ml Balance 0 ml Intake Oral 0 ml Tube Feeding 200 ml Output Urine Total 200 ml # Voids 1 # Bowel Movements 1 Daily Weight Change Yes, 14-23 lbs General: Alert, Oriented X3, Cooperative, No Acute Distress HEENT: Atraumatic, PERRLA, EOMI, Mucous Memb Moist/Isabel, Other (NPO) Neck: Other (Trach collar in place with 28% 02) Lungs: Clear to Auscultation, Other (s/p infusaport) Heart: Regular Rate Abdomen: Normal Bowel Sounds, Soft, No Tenderness, Other (s/p peg) Extremities: No Edema Neuro: Other (Generalized weakness Lower limbs > upper) Psych/Mental Status: Other (Flat affect appears depressed) Results Lab Data Laboratory Tests 03/06/18 19:28: Glucometer 117H 03/07/18 00:18: Glucometer 113H 03/07/18 05:34: Glucometer 124H Assessment/Plan Assessment and Plan Critical Illness myopathy s/p resp failure Lung Ca with mets to the esophagus and trachea and SC Node Tobaccoism currently abstaining Reactive depression Neutropenic fever resolved S/P Trach S/P Peg Tube placement Pleural effusion improved s/p Thoracentesis at OSH Plan Continue PT/OT/ST/Tube feeds and Supplemental 02 by Trach collar F/U with Hospitalist Team Conference next week (1) Myopathy Status: Acute Co-Morbidities that are continuing to impact the rehab process: (include details ) RACHNA SANCHEZ MD March 07, 2018 09:00
--- NOTE | 2018-03-07 09:57 | ST Dysphagia Evaluation ---
Speech Evaluation-General Medical Diagnosis Metastatic Lung Cancer/Pneumonia Onset Date: Feb 15, 2018 Therapy Diagnosis Therapy Diagnosis: Severe Oropharyngeal Dysphagia Precautions Precautions: Aspiration Precautions/Isolations: Fall Prevention, Standard Precautions Referral Referring Physician: Dr. Nicanor Darden Reason for Referral: Evaluation/Treatment Bedside Swallowing Evaluation Medical History Pertinent Medical History: Smoking Current History The patient was admitted to [facility] following a diagnosis of metastatic lung cancer, vocal cord paralysis, tracheostomy tube, and PEG tube. Upon admission, the patient's swallowing function was assessed by speech pathology and revealed overt signs/symptoms of aspiration, as dyed bolus material was expectorated from the tracheostomy site. As the patient was not deemed appropriate to leave the floor, a modified barium swallow could not be performed. Reviewed History: Yes Social History Current Living Status: Spouse Speech PLF/Current-Dysphagia Prior Level of Function Prior to tracheostomy and PEG tube placement, the patient stated he consumed a regular diet without any signs/symptoms of aspiration. Subjective The patient was seated upright in bed upon entrance. The patient greeted the clinician appropriately and was agreeable to participation in the dysphagia evaluation. Cognitive Status Patient Orientation: Person, Place, Time, Situation Oral Motor Skills Dentition: Natural (Lower dentition present. The patient is edentulous on upper.) Ability to Follow Directions: Good The patient is NPO receiving total nutrition, hydration and medication via PEG tube. Oral Expression Ability: Moderate Impairment (The patient's moderate impairment is solely due to his aphonic state. The patient is able to express his wants and needs appropriately.) Tracheostomy Type: Cuffed (Cuff deflated at this time.), Speaking Valve (Per patient, respiratory has not initaited speaking valve trials. Due to this, and based on the patient's appropriateness, speech pathology will initiate speaking valve trials in the near future.)Faye (#6) Other Contributing Factors: Radiation Therapy, Chemotherapy, PEG Tube Voice Voice Phonatory-Based Quality: Aphonia Face Facial Symmetry: Symmetrical Oral-Facial Assessment Oral-Facial Dentition: Normal Labial Seal Description: Normal Smile: Normal Puff Cheeks: Normal Lingual Protrusion: Normal (Tongue piercing visualized on lingual surface.) Lingual ROM: Normal Lingual Strength: Normal Pharynx Velopharyngeal Move.: Normal Volitional Dry Swallow: Yes Voluntary Cough: Yes Can Clear Throat Volitionally: Yes Productive Cough: Yes Productive Throat Clear: Yes Dysphagia Evaluation Consistencies Presented: Thin Liquid (Ice chips dyed green.), Pureed (Vanilla pudding dyed blue.) No oral deficits were visualized or demonstrated throughout the bedside swallowing evaluation. Pharyngeal Phase: Clears Throat, Reduced Laryngeal Elevation (The laryngeal vestibule is somewhat "anchored" by the presence of the tracheostomy.) Funct. Velo/Pharyngeal Symptom: Clears Throat Prior to oral bolus trials, the patient received extensive oral care, as well as , tracheostomy care (including suctioning). - Ice Chips (dyed green): The patient displayed a delayed, faint throat clear following two of five trials of ice chips. - Puree (dyed blue): No signs/symptoms of aspiration were demonstrated with five teaspoon trials of puree. Following completion of oral trials, the patient was encouraged to cough and expectorate phlegm from his tracheostomy site in attempts to visualize possible aspiration. Directly following trials, no tinged expectorations (blue or green) were experienced. Fifteen minutes following the completion of oral trials, deep suctioning was performed by the clinician. At this time, no tinged secretions were suctioned from the tracheostomy site. A sign was placed above the patient's suctioning material which requested respiratory and nursing staff to observe for expectorated tinged material and record the incident if observed. Dietary Recommendations: NPO Liquid Recommendations: NPO Dysphagia Evaluation Summary The clinician suspects moderate pharyngeal dysphagia secondary to poor laryngeal and pharyngeal sensation, as well as, decreased laryngeal elevation. If no tinged material is observed from the tracheostomy site for the subsequent 48 hours, speech pathology would like to attempt a modified barium swallow to further evaluate for aspiration in the near future. Speech Short Term Goals Short Term Goals Short Term Goals 1. The patient will tolerate trials of the [place] Arely Speaking Valve for a duration of two minutes. 2. The patient will tolerate trials of the least restrictive consistency without signs/symptoms of aspiration or laryngeal penetration. Time Frame-STG: One Week Speech Academic Counselor Goals Academic Counselor Goals 1. The patient will independently don his Passy-Arely Speaking Valve. 2. The patient will tolerate placement of the [place] Speaking Valve indefinitely with the exception of periods of sleep or high exertion. 3. The patient will tolerate a diet of the least restrictive material without signs/symptoms of aspiration or laryngeal penetration. Time Frame: Three Weeks Comprehension: 5 Expression: 4 Social Interaction: 5 Problem Solvin Memory: 4 Speech-Plan Treatment Plan Speech Therapy Treatment Plan: Continue Plan of Care Continue skilled speech pathology to target swallowing safety and return to a PO diet. Treatment Duration: March 27, 2018 Frequency: 3 times per week Estimated Hrs Per Day: .5 hour per day Rehab Potential: Poor Safety Risks/Education Teaching Recipient: Patient Teaching Methods: Discussion Response to Teaching: Verbalize Understanding Education Topics Provided: Swallowing Plan of Care Time Speech Therapy Time In: 09:00 Speech Therapy Time Out: 09:45 Total Billed Time: 45 Billed Treatment Time 1, CHAPIN BABIN March 07, 2018 09:57
[2018-03-07] MEDS: risperiDONE 0.25 MG (RisperDAL) TAB PEG SCH ×2 (10:10→22:48)
[2018-03-07] MEDS ORDERED: HYDROcodone/APAP 7.5MG-325 MG/15 ML (LORTAB) UDC PO PRN (11:00)
[2018-03-07] MEDS ORDERED: RT-ALBUTEROL/IPRATROPIUM 3 ML (DUONEB) VIAL IH PRN (11:00)
--- NOTE | 2018-03-07 11:10 | Physical Therapy Daily Note ---
PT Daily Note-Current Subjective Patient states he is not feeling well. Agrees to PT. Pain Numeric Pain Scale: 7 Location: Left, Lower Location Body Site: Abdomen Pain Description: Pressure Mental Status Patient Orientation: Normal For Age Attachments: Oxygen, PEG Tube, IV Transfers Functional [place] Measure 0=Not Assessed/NA 4=Minimal Assistance 1=Total Assistance 5=Supervision or Setup 2=Maximal Assistance 6=Modified [place] 3=Moderate Assistance 7=Complete IndependenceIRFPAI Quality Coding Scale 6 Independent with activity with or without an assistive device 5 Patient requires set up or clean up by helper. Patient completes activity by themselves 4 Supervision or touching assist (CGA). [place] provide cues , steadying assist 3 The helper provides less than half the effort to complete the activity 2 The helper provides more than half the effort to complete the activity 1 Dependent. The helper does all the effort to complete an activity 7 Patient refused to complete or attempt activity 9 The patient did not perform the activity before the current illness or injury 88 Not attempted due to Medical conditions or safety concerns Transfers (B, C, W/C) (FIM): 4 Scootin Rollin Roll Left to Right (QC): 5 Supine to/from Sit: 5 Sit to/from Stand: 4 Sit to Lying (QC): 5 Sit to Stand (QC): 4 Chair/Esd-rt-Iijkq Xfer(QC): 4 Bed to/from Chair: 4 Weight Bearing Right Lower Extremity: Right Full Weight Bearing Left Lower Extremity: Left Full Weight Bearing Gait Training Does the Patient Walk?: Yes Gait (FIM): 1 Distance (FIM): 1=up to 49 ft Distance: 45' x 2 Walk 10 feet (QC): 4 Gait Level of Assist: 4 Gait Assistive Device: FWW very slow, steady requiring sitting recovery period due to SOA and fatigue Exercises Supine Ex: Ankle pumps, Quad Set, Heel Slides, Straight leg raise, Hip abd/add Supine Reps: 10 (2 sets) Assessment Patient tolerated treatment and is up in recliner with needs met. PT to increase activity as patient tolerates. Patient is coughing up red/brown sputum. RT notified. PT Halfway Goals Land Surveyor Goals PT Land Surveyor Goals Time Frame: Mar 28, 2018 Transfers (B,C,W/C) (FIM): 6 Sit to Lying (QC): 6 Lying-Sitting on Side/Bed(QC): 6 Sit to Stand (QC): 6 Rollin Roll Left to Right (QC): 6 Chair/Vlf-da-Uzied Xfer(QC): 6 Car Transfer (QC): 6 Does the Patient Walk: Yes Gait (FIM): 6 Gait distance (FIM): 3=150 ft Distance: 150' Walk 10 feet (QC): 6 Walk 10ft-Uneven Surface(QC): 6 Walk 50ft with 2 Turns (QC): 6 Walk 150 ft (QC): 6 Gait Level of Assist: 6 Gait Assistive Device: FWW, Cane Single Point Stairs (FIM): 5 # of Steps: 5 1 Step (curb) (QC): 5 4 Steps (QC): 5 12 Steps (QC): 5 Stairs Level Of Assist: 5 Picking up an Object (QC): 5 PT Plan Treatment/Plan Treatment Plan: Continue Plan of Care Treatment Plan: Bed Mobility, Education, Functional Activity Isaiah, Functional Strength, Group Therapy, Gait, Safety, Therapeutic Exercise, Transfers Treatment Duration: Mar 28, 2018 Frequency: At least 5 of 7 days/Wk (IRF) Estimated Hrs Per Day: 1.5 hours per day Patient and/or Family Agrees t: Yes Time/GCodes Time In: 1030 Time Out: 1100 Total Billed Treatment Time: 30 Total Billed Treatment 1 visit FA x 2 30 min HELEN NG PT March 07, 2018 11:10
--- NOTE | 2018-03-07 11:19 | Progress Note-Hospitalist ---
Subjective HPI/CC On Admission Date Seen by Provider: March 07, 2018 Time Seen by Provider: 11:00 Subjective/Events-last exam Patient about the same Report some subtle abdominal pain left lower quadrant so tube feedings are being monitored closely Denies any shortness of breath more than usual Bowels are moving Reviewed vitals and labs and meds Review of Systems Gastrointestinal: Abdominal Pain (mild LLQ) Objective Exam Vital Signs Vital Signs Date Time Temp Pulse Resp B/P (MAP) Pulse Ox O2 Delivery O2 Flow Rate FiO2 03/07/18 19:20 93 Trach Collar 6.00 28 03/07/18 18:00 99.5 108 18 134/83 (100) Capillary Refill : General Appearance: No Apparent Distress, WD/WN, Chronically ill, Thin Respiratory: Lungs Clear, Normal Breath Sounds, Decreased Breath Sounds Cardiovascular: Regular Rate, Rhythm, No Edema Gastrointestinal: Non Tender, Soft Results/Procedures Lab Patient resulted labs reviewed. Assessment/Plan Assessment and Plan Assess & Plan/Chief Complaint (1) Acute respiratory failure Status: Acute (2) Metastatic primary lung cancer Status: Acute (3) Tracheostomy malfunction Status: Acute (4) Neutropenic fever Status: Resolved (5) Pleural effusion Status: Acute Assessment & Plan: Left sided PEG tube maintained Abdominal pain Plan: Consult Surgery to evaluate subtle LLQ abd pain Pain meds PT/OT Diagnosis/Problems Diagnosis/Problems (1) Debilitated Status: Chronic (2) Abdominal pain Status: Acute Qualifiers: Abdominal location: lower abdomen, unspecified Qualified Codes: R10.30 - Lower abdominal pain, unspecified (3) Tracheostomy in place Status: Chronic (4) PEG (percutaneous endoscopic gastrostomy) adjustment/replacement/removal Status: Chronic (5) Malignant neoplasm of unspecified part of unspecified bronchus or lung Status: Chronic (6) Pleural effusion Status: Acute (7) Dysphagia Status: Acute Clinical Quality Measures DVT/VTE Risk/Contraindication: Risk Factor Score Per Nursin RFS Level Per Nursing on Admit: 4+=Very High BARI DIAZ DO March 07, 2018 11:19
--- NOTE | 2018-03-07 12:53 | Occupational Ther Daily Note ---
OT Current Status-Daily Note Subjective Pt seen initially at 11:15 but extremely fatigued and requested time to rest. At 11:30 pt reported pain in abdomen at 4/10 but facial expression would rate it higher. nursing notified Appearance Looking fatigued Mental Status/Objective Functional [place] Measure 0=Not Assessed/NA 4=Minimal Assistance 1=Total Assistance 5=Supervision or Setup 2=Maximal Assistance 6=Modified [place] 3=Moderate Assistance 7=Complete [place] ADL-Treatment Nursing gave pt new pain meds. He started a sponge bath but only got his face washed before he became nauseated and vomited small amount of clear liquid. He was unable to continue with bath and requested to lie down. Pt transferred with CGA, FWW to bed ad was able to get supine without help. Cold washcloth placed on forehead and nursing present. Functional [place] Measure 0=Not Assessed/NA 4=Minimal Assistance 1=Total Assistance 5=Supervision or Setup 2=Maximal Assistance 6=Modified [place] 3=Moderate Assistance 7=Complete IndependenceIRFPAI Quality Coding Scale 6 Independent with activity with or without an assistive device 5 Patient requires set up or clean up by helper. Patient completes activity by themselves 4 Supervision or touching assist (CGA). [place] provide cues , steadying assist 3 The helper provides less than half the effort to complete the activity 2 The helper provides more than half the effort to complete the activity 1 Dependent. The helper does all the effort to complete an activity 7 Patient refused to complete or attempt activity 9 The patient did not perform the activity before the current illness or injury 88 Not attempted due to Medical conditions or safety concerns Education OT Patient Education: Purpose of tx/functional activities Teaching Recipient: Patient Teaching Methods: Discussion Response to Teaching: Verbalize Understanding OT Short Term Goals Short Term Goals Time Frame: March 14, 2018 Toileting(FIM): 5 Toilet/Commode Transfer(FIM): 5 Additional Short Term Goals: 1-Demonstrate ADL Tasks, 2-Verbalize Understanding , 3-ImproveStrength/Isaiah 1=Demonstrate adherence to instructed precautions during ADL tasks. 2=Patient will verbalize/demonstrate understanding of assistive devices/ modifications for ADL. 3=Patient will improve strength/tolerance for activity to enable patient to perform ADL's. OT Snf Goals Merchandising Professor Goals Time Frame: Mar 28, 2018 Eating (FIM): 6 Eating (QC): 6 Groomin Oral Hygiene (QC): 6 Bathing(FIM): 6 Shower/Bathe Self (QC): 6 Upper Body Dressing(FIM): 6 Upper Body Dressing (QC): 6 Lower Body Dressing(FIM): 6 Lower Body Dressing (QC): 6 On/Off Footwear (QC): 6 Toileting(FIM): 6 Toileting Hygiene (QC): 6 Toilet/Commode Transfer(FIM): 6 Toilet/Commode Transfer (QC): 6 Tub Transfer(FIM): 6 (or shower) Shower Transfer(FIM): 6 (or tub) Comprehension(FIM): 5 Expression (FIM): 4 Social Interaction(FIM): 5 Problem Solving(FIM): 4 Memory(FIM): 4 Additional Goals: 1-Demonstrate ADL Tasks, 2-Verbalize Understanding, 3- ImproveStrength/Isaiah 1=Demonstrate adherence to instructed precautions during ADL tasks. 2=Patient will verbalize/demonstrate understanding of assistive devices/ modifications for ADL. 3=Patient will improve strength/tolerance for activity to enable patient to perform ADL's. OT Education/Plan Problem List/Assessment Pt would benefit from skilled OT to increase his independence in basic self care to allow him to safely return home. Discharge Recommendations Plan/Recommendations: Continue POC Treatment Plan/Plan of Care Patient would benefit from OT for education, treatment and training to promote independence in ADL's, mobility, safety and/or upper extremity function for ADL' s. Plan of Care: ADL Retraining, Caregiver Training, Functional Mobility, Group Exercise/Act as Ind (education, exercise, activity tolerance, funct activities) , UE Funct Exercise/Act, UE Neuromus Re-Ed/Coord, OTHER (edema management) Treatment Duration: Mar 28, 2018 Frequency: Modified Program (IRF) Estimated Hrs Per Day: 1.5 hours per day Agreement: Yes Rehab Potential: Poor Time/GCodes Start Time: 11:30 Stop Time: 11:50 Total Time Billed (hr/min): 20 Billed Treatment Time visit, 20 minutes ADL KERWIN GARCIAS OT March 07, 2018 12:53
--- NOTE | 2018-03-07 12:57 | Physical Therapy Daily Note ---
PT Daily Note-Current Subjective Patient continues to c/o nausea. Pain Numeric Pain Scale: 5-Moderate Pain Location: Left Location Body Site: Side Pain Description: Pressure Mental Status Patient Orientation: Normal For Age Attachments: Oxygen, PEG Tube Transfers Functional [place] Measure 0=Not Assessed/NA 4=Minimal Assistance 1=Total Assistance 5=Supervision or Setup 2=Maximal Assistance 6=Modified [place] 3=Moderate Assistance 7=Complete IndependenceIRFPAI Quality Coding Scale 6 Independent with activity with or without an assistive device 5 Patient requires set up or clean up by helper. Patient completes activity by themselves 4 Supervision or touching assist (CGA). [place] provide cues , steadying assist 3 The helper provides less than half the effort to complete the activity 2 The helper provides more than half the effort to complete the activity 1 Dependent. The helper does all the effort to complete an activity 7 Patient refused to complete or attempt activity 9 The patient did not perform the activity before the current illness or injury 88 Not attempted due to Medical conditions or safety concerns Weight Bearing Right Lower Extremity: Right Full Weight Bearing Left Lower Extremity: Left Full Weight Bearing Exercises Supine Ex: Ankle pumps, Quad Set, Heel Slides, Straight leg raise, Hip abd/add Supine Reps: 15 (AAROM bilaterally) Assessment Treatment ceased due to nausea. He has agreed to go to Group and actively participate. PT Senior Living Goals Senior Living Goals PT Chorus Dancer Goals Time Frame: Mar 28, 2018 Transfers (B,C,W/C) (FIM): 6 Sit to Lying (QC): 6 Lying-Sitting on Side/Bed(QC): 6 Sit to Stand (QC): 6 Rollin Roll Left to Right (QC): 6 Chair/Tvm-at-Xrgsx Xfer(QC): 6 Car Transfer (QC): 6 Does the Patient Walk: Yes Gait (FIM): 6 Gait distance (FIM): 3=150 ft Distance: 150' Walk 10 feet (QC): 6 Walk 10ft-Uneven Surface(QC): 6 Walk 50ft with 2 Turns (QC): 6 Walk 150 ft (QC): 6 Gait Level of Assist: 6 Gait Assistive Device: FWW, Cane Single Point Stairs (FIM): 5 # of Steps: 5 1 Step (curb) (QC): 5 4 Steps (QC): 5 12 Steps (QC): 5 Stairs Level Of Assist: 5 Picking up an Object (QC): 5 PT Plan Treatment/Plan Treatment Plan: Continue Plan of Care Treatment Plan: Bed Mobility, Education, Functional Activity Isaiah, Functional Strength, Group Therapy, Gait, Safety, Therapeutic Exercise, Transfers Treatment Duration: Mar 28, 2018 Frequency: At least 5 of 7 days/Wk (IRF) Estimated Hrs Per Day: 1.5 hours per day Patient and/or Family Agrees t: Yes Time/GCodes Time In: 1220 Time Out: 1235 Total Billed Treatment Time: 15 Total Billed Treatment 1 visit EX 15 min HELEN NG PT March 07, 2018 12:57
--- NOTE | 2018-03-07 14:55 | Speech Therapy Daily Note ---
Speech Daily Progress Note Subjective Date Seen by Provider: March 07, 2018 Time Seen by Provider: 09:45 The patient was seated upright in bed upon entrance. The patient greeted the clinician and was agreeable to participation in the voice treatment session. Objective Throughout tracheostomy care with suctioning was provided prior to treatment session. The Pass[place] Arely was discussed extensively with the patient, as well as, it's use and safety precautions. Digital Occlusion: Digital occlusion was attempted by the clinician with limited success, however, also limited backflow of expiratory air. The patient' s voice with digital occlusion was harsh and breathy with limited intensity. [place] Speaking Valve: Prior to SpO2% reading, description and example of [place] Speaking Valve was provided. With a duration of under twenty seconds , the patient verbalized discomfort and restriction of breathing. Due to this, the Passy Arely Valve was discontinued on this date. Additional trials will continue as tolerated. Assessment Assessment Current Status: Poor Progress Treatment Plan Continue Plan of Care Communication Comprehension: 6 (The patient wears glasses.) Expression: 6 (The patient complex information thoroughly to the clinician, however, due to aphonia would benefit from augmentative devices (dry erase board , Passy Arely Speaking Valve).) Social Cognition Social Interaction: 6 (Anti-Depressant) Problem Solvin Memory: 7 Speech Short Term Goals Short Term Goals Short Term Goals 1. The patient will tolerate trials of the [place] Speaking Valve for a duration of two minutes. 2. The patient will tolerate trials of the least restrictive consistency without signs/symptoms of aspiration or laryngeal penetration. Time Frame-STG: One Week Speech Care Home Goals Care Home Goals 1. The patient will independently don his [place] Speaking Valve. 2. The patient will tolerate placement of the [place] Speaking Valve indefinitely with the exception of periods of sleep or high exertion. 3. The patient will tolerate a diet of the least restrictive material without signs/symptoms of aspiration or laryngeal penetration. Time Frame: Three Weeks Comprehension: 5 Expression: 4 Social Interaction: 5 Problem Solvin Memory: 4 Speech-Plan Treatment Plan Speech Therapy Treatment Plan: Continue Plan of Care Continue skilled speech pathology to target return of vocal expression. Treatment Duration: March 27, 2018 Frequency: 3 times per week Estimated Hrs Per Day: .5 hour per day Rehab Potential: Poor Safety Risks/Education Teaching Recipient: Patient Teaching Methods: Demonstration, Discussion Response to Teaching: Verbalize Understanding Education Topics Provided: [place] Valve- To note, the Passy Arely Valve remains in the care of the speech pathologist due to extremely limited tolerance of the device by the patient. Continued trials with occur in subsequent treatment sessions under supervision of the speech pathologist, only. Time Speech Therapy Time In: 09:45 Speech Therapy Time Out: 10:00 Total Billed Time: 15 Billed Treatment Time 1, CHAPIN GLYNN March 07, 2018 14:55
--- NOTE | 2018-03-07 15:11 | Therapy Group Daily Note ---
Therapy Daily Group Note Patient Education Topic Other List Below (fall prevention) Exercises LE Seated Exercise, UE Exercise Other/Notes Pt ambulated with FWW to OT/PT group. Group consisted of introductions (name, place living, favorite pie), socialization, seated UE/LE exercises (peer led), education of fall prevention and memory activity. Pt introduced self appropriately and actively listened to peers. Pt was able to do UE/LE seated exercises easily fatigued. Pt verbalized ways to prevent falls after educational topic was discussed. Pt was able to remember one word from memory activity. After group, pt was lying in bed with call light/phone in reach. All needs met in room. Start Time: 13:00 Stop Time: 14:15 Total Billed Treatment Time: 75 Total Billed Treatment 1-GRP SIMIN BOO March 07, 2018 15:11
[2018-03-07] MEDS ORDERED: HYDROmorphone (DILAUDID) 2 MG TAB PO PRN (16:15)
[2018-03-07 18:00] VITALS: BP 134/83
[2018-03-07] MEDS: HYDROmorphone (DILAUDID) 2 MG TAB GT PRN (18:35)
[2018-03-07] MEDS ORDERED: HYDROmorphone (DILAUDID) 2 MG TAB GT PRN (20:15)
[2018-03-07] MEDS ORDERED: HYDROmorphone 1 MG/ML (DILAUDID) 1 ML SYRINGE ONE (20:40)
--- NOTE | 2018-03-07 21:03 | Consultation ---
History of Present Illness History of Present Illness Patient Consulted On(stephanie/time) 03/07/18 20:57 Time Seen by Provider: 20:24 History of Present Illness Surgery asked to consult regarding increasing abdominal pain. HPI per medicine: The patient is a 42-year-old male who was admitted to [facility] on 02/15 via the ED after he was being cared for by his fiancee in [place], [place]. He had recently been diagnosed and treated at [facility] for lung cancer with metastases pressing on the esophagus and trachea. He has had tracheostomy and is currently on tube feeds. Apparently, he has some shortness of breath, fever and his trach came out. The patient was found to be septic and respiratory failure. He was admitted to the ICU and followed by hospitalist service and stone breaker. His trach was replaced. He is currently on O2 by trach collar and on tube feeds. When seen tonight pt states he has had abdominal pain off and on for past few weeks, but this pain has not gone away and has increased. He states pain is at least 8 out of 10, sharp, no radiation and only helped with pain meds. Pt states he is having BM' s and flatus. PEG tube has been held for a 1/2 hour, no change in the pain. Pt denies abdominal distention, no nausea or vomiting. Denies hematochezia. His fiancee thinks it is due to the mass "on the gland in his stomach". Allergies and Home Medications Allergies Coded Allergies: No Known Drug Allergies (Unverified , 03/30/16) Home Medications Albuterol Sulfate 1 Puff Puff, 1-2 PUFF IH EVERY 4-6 HOURS PRN for SHORTNESS OF BREATH, (Reported) 1 PUFF = 90 MCG Clonazepam 0.5 Mg Tablet, 0.5 MG PO HS, (Reported) Clonazepam 0.5 Mg Tablet, 0.25 MG PO DAILY, (Reported) Lorazepam 1 Mg Tablet, 0.5-1 MG PEG Q8H PRN for ANXIETY MAY ALSO BE TAKEN FOR NAUSEA/VOMITING Prescribed by: BARI DIAZ on 03/06/18 1051 Nicotine 1 Each Patch.td24, 21 MG TD DAILY, (Reported) Ondansetron HCl 8 Mg Tablet, 8 MG PEG Q8H PRN for NAUSEA/VOMITING-1ST LINE Prescribed by: BARI DIAZ on 03/06/18 1051 Prochlorperazine Maleate 10 Mg Tablet, 10 MG PEG Q6H PRN for NAUSEA/VOMITING- 4TH LINE Prescribed by: BARI DIAZ on 03/06/18 1051 Simethicone 80 Mg Tab.chew, 80 MG PO Q6H PRN for GAS, (Reported) Tramadol HCl 50 Mg Tablet, 25-50 MG PO Q6H PRN for PAIN-MODERATE, (Reported) Patient Home Medication List Home Medication List Reviewed: Yes Past Flzjhbh-Unqguy-Oienij Hx Patient Social History Alcohol Use: Denies Use Recreational Drug Use: No Smoking Status: Former Smoker Former Smoker, Quit: Jan 24, 2018 Type Used: Cigarettes Recent Foreign Travel: No Contact w/Someone Who Travel: No Recent Infectious Disease Expo: No Recent Hopitalizations: Yes ([facility] was discharged 02/14/18) Physical Abuse Screen: No Sexual Abuse: No Immunizations Up To Date Tetanus Booster (TDap): Unknown PED Vaccines UTD: No Seasonal Allergies Seasonal Allergies: No Surgeries History of Surgeries: Yes (TRACH,INFUSAPORT,FEEDING TUBE, LUNG BX) Surgeries: Tracheostomy Respiratory History of Respiratory Disorde: No Cardiovascular History of Cardiac Disorders: No Neurological History of Neurological Disord: No Reproductive System Hx Reproductive Disorders: No Sexually Transmitted Disease: No Genitourinary History of Genitourinary Disor: No Gastrointestinal History of Gastrointestinal Di: No Musculoskeletal History of Musculoskeletal Dis: No Endocrine History of Endocrine Disorders: No HEENT History of HEENT Disorders: Yes (throat in mass--pushed on vocal cords) Cancer History of Cancer: Yes (PRIMARY LUNG METS TO ESOPHAGUS, TRACHEA, ADRENAL GLANDS ) Cancer: Lung, Esophageal Psychosocial History of Psychiatric Problem: Yes Behavioral Health Disorders: Anxiety, Depression Integumentary History of Skin or Integumenta: No Blood Transfusions History of Blood Disorders: No Family Medical History Significant Family History: No Pertinent Family Hx, Diabetes (denies anyone in his family has this), Hypertension (denies anyone in his family has this) Family Medial History: LEUKEMIA 19 FATHER Review of Systems-General Constitutional: chills, diaphoresis, malaise, weakness EENTM: hoarseness; No blurred vision, No epistaxis Respiratory: cough, dyspnea on exertion, short of breath Cardiovascular: No chest pain, No palpitations Gastrointestinal: abdominal pain; No hematemesis, No jaundice Genitourinary: No dysuria, No frequency, No hematuria Skin: No change in color, No change in hair/nails Psychiatric/Neurological: Depressed Other pt denies any abnormal bruising or bleeding, denies any heat or cold intolerance Physical Exam-General Problems Physical Exam Vital Signs Vital Signs - First Documented 03/06/18 03/06/18 10:00 18:19 Temp 98.5 Pulse 124 Resp 22 B/P (MAP) 124/86 (99) Pulse Ox 90 O2 Delivery Trach Collar O2 Flow Rate 28.00 3.00 FiO2 21 Capillary Refill : General Appearance: moderate distress, cachetic Eyes: Bilateral Eye PERRL, Bilateral Eye EOMI HEENT: No scleral icterus (R), No scleral icterus (L), No pale conjunctivae (R) , No pale conjunctivae (L) Neck: No thyromegaly; other (trach in place) Respiratory: decreased breath sounds (bilateral bases), accessory muscle use, crackles (bases) Cardiovascular: no edema, no murmur, tachycardia Gastrointestinal: soft; No distended, No guarding, No rebound; tenderness ( tender more on right than left) Extremities: normal range of motion, no pedal edema, no calf tenderness, other (legs actually look thin, arms are swollen and ?? edematous) Neurologic/Psychiatric: health outcomes liaison II-XII nml as tested, no motor/sensory deficits Skin: normal color, warm/dry Lymphatic: other (+supraclavicular nodes, no inguinal lymphadenopathy) Data Review Labs Laboratory Tests 03/07/18 00:18: Glucometer 113H 03/07/18 05:34: Glucometer 124H 03/07/18 11:55: Glucometer 124H Assessment/Plan Assessment/Plan Assessment/Plan Diffuse Abdominal pain Metastatic NSCLC Ordered Dilaudid IV, 3 view abdomen. Pt is not even sure he would want surgery if he needed it. Will keep him comfortable, radiology tests to check if anything is going on......and then give pt more information. Would also restart tube feeds. Clinical Quality Measures DVT/VTE Risk/Contraindication: Risk Factor Score Per Nursin RFS Level Per Nursing on Admit: 4+=Very High RACHNA AYALA DO March 07, 2018 21:03
--- NOTE | 2018-03-07 21:52 | Diagnostic Imaging Report ---
INDICATION: Abdominal pain. EXAMINATION: KUB at 9:34 p.m. FINDINGS: There is a gastrostomy tube projecting over the stomach. There is Rigler sign in the pelvis suggesting a pneumoperitoneum. IMPRESSION: Suspected pneumoperitoneum. Further imaging is indicated to confirm or exclude. CRITICAL FINDING Report was called to patient's nurse in the [facility] at 9:48 p.m., by raissa. Dictated by: Dictated on workstation # [id number]
[2018-03-07] MEDS: clonazePAM 0.5 MG (KlonoPIN) TAB PEG SCH (22:48)
[2018-03-07] MEDS: SERTRALINE 50 MG (ZOLOFT) TABLET PEG SCH (22:48)
[2018-03-07] MEDS: DOCUSATE SODIUM 10 MG/ML 10 ML UDC (COLACE) PEG SCH ×2 (22:48→23:30)
[2018-03-07] MEDS: RIVAROXABAN 20 MG TABLET (XARELTO) PEG SCH ×2 (22:49→23:30)
[2018-03-07] MEDS ORDERED: IOHEXOL 350 MG/ML 100 ML (OMNIPAQUE 350) VIAL IV ONE (23:00)
[2018-03-07] MEDS ORDERED: NS 250 ML (IVPB) BAG IV ONE (23:00)
[2018-03-08] MEDS: RT-ALBUTEROL/IPRATROPIUM 3 ML (DUONEB) VIAL INH SCH ×6 (02:46→22:29)
[2018-03-08] MEDS: HYDROmorphone 1 MG/ML (DILAUDID) 1 ML SYRINGE IV PRN ×4 (04:09→20:22)
[2018-03-08 06:00] VITALS: BP 134/87
[2018-03-08] MEDS: HYDROmorphone (DILAUDID) 2 MG TAB GT PRN (06:46)
[2018-03-08] MEDS: CATHETER FLUSH 10 ML SYR IV SCH ×3 (06:47→20:22)
[2018-03-08] MEDS: predniSONE 10 MG TAB PEG SCH (06:47)
--- NOTE | 2018-03-08 08:40 | Diagnostic Imaging Report ---
PROCEDURE: CT abdomen and pelvis with contrast. TECHNIQUE: Multiple contiguous axial images were obtained through the abdomen and pelvis after administration of intravenous contrast. INDICATION: Abdominal pain. Recently diagnosed with lung cancer with metastatic disease. CORRELATION STUDY: 02/23/2018 FINDINGS: Moderate sized, right and slightly smaller left pleural effusions are present. The size of the effusions appearing smaller from prior study. Associated consolidation with atelectasis or infiltrate both lung bases. Heart size is enlarged with presence of small paracardial effusion. There is noted prominent enhancing vessels over the right chest wall as well as along the diaphragm. Reflux of contrast into the inferior vena cava could reflect underlying right heart dysfunction. Tip of a paracentral line at the cavoatrial junction. Gastrostomy tube remains in place. Tip positioning somewhat indeterminate.. Generalized haziness about the mesentery is noted with a very small amount of ascites present. No significant free intraperitoneal air. Mild severity fecal retention. High density contrast noted in the distal colon likely contrast from prior imaging. Contrast within the lumen, the appendix is present. Abdominal aorta appearing unremarkable with branching vessels patent. Inferior vena cava is collapsed. Liver is with a slight heterogeneous appearance. Tiny micro-densities are suggested without definitive mass lesion., spleen, pancreas, gallbladder appearing unremarkable. Right adrenal gland unremarkable. Abnormal enlargement of the left adrenal gland appears increased currently measuring approximately 4.5 x 3.5 cm, previously measuring 3.0 x 2.7 cm. Urinary bladder unremarkable. Prostate gland enlarged with slight asymmetric enhancement about the right lobe. Multifocal areas of bony sclerosis are again demonstrated. Largest area involving the of the proximal right femur in the intertrochanteric region. Impression: 1. Bilateral pleural effusions right greater than left, associated consolidation either atelectasis or infiltrate in the lung bases persists but slightly diminished and improved. 2. Suggestion of collateral vascular flow over the right chest wall and diaphragm again demonstrated. 3. Very mild generalized anasarca suggested. No free air. 4. Left adrenal gland mass appears increased in size. 5. Gastrostomy tube in position somewhat indeterminate on this study. Dictated by: Dictated on workstation # [id number]
[2018-03-08] MEDS: SCOPOLAMINE 1.5 MG (TRANSDERM-SCOP) PATCH TOP SCH (09:59)
[2018-03-08] MEDS: DOCUSATE SODIUM 10 MG/ML 10 ML UDC (COLACE) PEG SCH ×2 (10:00→20:21)
[2018-03-08] MEDS: SCOPOLAMINE PATCH REMOVAL TP SCH (10:00)
[2018-03-08] MEDS: risperiDONE 0.25 MG (RisperDAL) TAB PEG SCH ×2 (10:00→20:21)
[2018-03-08] MEDS ORDERED: POLYETHYLENE GLYCOL 17 GM (MIRALAX) PACK PO NR (11:45)
--- NOTE | 2018-03-08 12:13 | Progress Note ---
Subjective Time Seen by Provider: 11:52 Subjective/Events-last exam Pt seen and examined, states pain is a little better than yesterday. 3-view abd series last night read as possible pneumoperitoneum; however, the CT did not show any free intraperitoneal air. Review of Systems General: No Chills, No Night Sweats; Fatigue, Malaise Pulmonary: Cough, Pleuritic Chest Pain Cardiovascular: No: Chest Pain, Palpitations Gastrointestinal: Abdominal Pain; No: Nausea, Vomiting Objective Exam Vital Signs Date Time Temp Pulse Resp B/P (MAP) Pulse Ox O2 Delivery O2 Flow Rate FiO2 03/08/18 10:49 98 Trach Collar 6.00 28 03/08/18 09:59 Trach Collar 28 03/08/18 07:30 98 Trach Collar 6.00 28 03/08/18 06:00 96.9 101 16 134/87 (103) 98 Trach Collar 28.00 03/08/18 02:46 96 Trach Collar 6.00 28 03/07/18 23:14 96 Trach Collar 6.00 28 03/07/18 21:00 92 Trach Collar 28 03/07/18 19:20 93 Trach Collar 6.00 28 03/07/18 18:00 99.5 108 18 134/83 (100) 99 Trach Collar 28.00 3.00 03/07/18 15:40 94 Trach Collar 21 I & O 03/08/18 07:00 Intake Total 1470 ml Output Total 700 ml Balance 770 ml Capillary Refill : General Appearance: No Apparent Distress, Chronically ill, Thin HEENT: PERRL/EOMI; No Scleral Icterus (L), No Scleral Icterus (R) Respiratory: No Accessory Muscle Use, No Respiratory Distress, Decreased Breath Sounds Cardiovascular: Regular Rate, Rhythm, No Edema Gastrointestinal: soft; No distended, No guarding, No rebound; tenderness ( tender more on right than left) Neurologic/Psychiatric: Alert, Oriented x3 Assessment/Plan Assessment/Plan Assessment/Plan Diffuse Abdominal pain -most likely secondary to constipation Metastatic NSCLC Would restart tube feeds if not already done. Miralax written, pt does not have need for surgical intervention at this time. Pt still not sure if he would want to do surgery anyway. Most likely just constipation and Miralax should help. I will sign off and reconsult if needed. Clinical Quality Measures DVT/VTE Risk/Contraindication: Risk Factor Score Per Nursin RFS Level Per Nursing on Admit: 4+=Very High RACHNA AYALA DO March 08, 2018 12:13
--- NOTE | 2018-03-08 12:36 | Physical Therapy Daily Note ---
PT Daily Note-Current Subjective Pt. in bed, agrees to ther ex in bed. indicates he has discomfort in his belly/ gut. Physician enters and visits with pt. stating pt. has some bowel not moving and they are working on resolving this Pain Numeric Pain Scale: 3 Location: Medial Location Body Site: Abdomen Pain Description: Pressure Mental Status Patient Orientation: Non-Verbal/Aphasic Attachments: Oxygen, Other-See Comments (feed tube) Transfers Functional [place] Measure 0=Not Assessed/NA 4=Minimal Assistance 1=Total Assistance 5=Supervision or Setup 2=Maximal Assistance 6=Modified [place] 3=Moderate Assistance 7=Complete IndependenceIRFPAI Quality Coding Scale 6 Independent with activity with or without an assistive device 5 Patient requires set up or clean up by helper. Patient completes activity by themselves 4 Supervision or touching assist (CGA). Rousseau provide cues , steadying assist 3 The helper provides less than half the effort to complete the activity 2 The helper provides more than half the effort to complete the activity 1 Dependent. The helper does all the effort to complete an activity 7 Patient refused to complete or attempt activity 9 The patient did not perform the activity before the current illness or injury 88 Not attempted due to Medical conditions or safety concerns Scootin Rollin Weight Bearing Right Lower Extremity: Right Full Weight Bearing Left Lower Extremity: Left Full Weight Bearing Exercises Supine Ex: Bridging, Ankle pumps, Quad Set, Rolling, Heel Slides, Short Arc Quads, Scooting, Straight leg raise, Hip abd/add Supine Reps: 15 Assessment Current Status: Good Progress PT Development Mgr Goals Chcf Goals PT Chcf Goals Time Frame: Mar 28, 2018 Transfers (B,C,W/C) (FIM): 6 Sit to Lying (QC): 6 Lying-Sitting on Side/Bed(QC): 6 Sit to Stand (QC): 6 Rollin Roll Left to Right (QC): 6 Chair/Lxu-rb-Mkduo Xfer(QC): 6 Car Transfer (QC): 6 Does the Patient Walk: Yes Gait (FIM): 6 Gait distance (FIM): 3=150 ft Distance: 150' Walk 10 feet (QC): 6 Walk 10ft-Uneven Surface(QC): 6 Walk 50ft with 2 Turns (QC): 6 Walk 150 ft (QC): 6 Gait Level of Assist: 6 Gait Assistive Device: FWW, Cane Single Point Stairs (FIM): 5 # of Steps: 5 1 Step (curb) (QC): 5 4 Steps (QC): 5 12 Steps (QC): 5 Stairs Level Of Assist: 5 Picking up an Object (QC): 5 PT Plan Treatment/Plan Treatment Plan: Continue Plan of Care Treatment Plan: Bed Mobility, Education, Functional Activity Isaiah, Functional Strength, Group Therapy, Gait, Safety, Therapeutic Exercise, Transfers Treatment Duration: Mar 28, 2018 Frequency: At least 5 of 7 days/Wk (IRF) Estimated Hrs Per Day: 1.5 hours per day Patient and/or Family Agrees t: Yes Safety Risks/Education Patient Education: Transfer Techniques, Correct Positioning Time/GCodes Time In: 1200 Time Out: 1215 Total Billed Treatment Time: 15 Total Billed Treatment 1,EX15m G Codes Necessary: MEL Dunn MECHANICAL SYSTEM TECHNICIAN March 08, 2018 12:36
--- NOTE | 2018-03-08 12:45 | Occupational Ther Daily Note ---
OT Current Status-Daily Note Subjective Pt seen in room, up in bed, agreeable to OT. Pt reported abdominal pain better today. Appearance Alert, cooperative Mental Status/Objective Functional [place] Measure 0=Not Assessed/NA 4=Minimal Assistance 1=Total Assistance 5=Supervision or Setup 2=Maximal Assistance 6=Modified [place] 3=Moderate Assistance 7=Complete [place] ADL-Treatment Pt got up to EOB with SBA but very slowly. IV sites covered for shower. Pt needed CGA sit to stand and walked CGA very slowly to bathroom, FWW. Min assist positioning walker and pt for shower transfer and CGA getting into and onto shower bench. Bench was raised up several inches with blankets due to pt height. Min assist to get shirt off due to multiple IV sites and trach but pt put clean shirt back on with setup. CGA to pull pants down, then pt took them off while sitting. Able to get slipper socks off and on with setup. Shower didn' t work so pt did sponge bath in shower, washing and drying all parts except bottom, with CGA when standing. Pt was able to put pants on over feet, pull them up with min assist to get over hips. Pt walked back to bed slowly, CGA, FWW , with cues for hand placement for sitting down EOB. Pt able to get into bed with SBA. brushed teeth and combed hair with setup (washed face and hands in shower). O2 sats 96% on 3L O2 during shower but pt required multiple recovery breaks throughout ADLs. Pt left up in bed, all needs met. Functional [place] Measure 0=Not Assessed/NA 4=Minimal Assistance 1=Total Assistance 5=Supervision or Setup 2=Maximal Assistance 6=Modified [place] 3=Moderate Assistance 7=Complete IndependenceIRFPAI Quality Coding Scale 6 Independent with activity with or without an assistive device 5 Patient requires set up or clean up by helper. Patient completes activity by themselves 4 Supervision or touching assist (CGA). Midnight provide cues , steadying assist 3 The helper provides less than half the effort to complete the activity 2 The helper provides more than half the effort to complete the activity 1 Dependent. The helper does all the effort to complete an activity 7 Patient refused to complete or attempt activity 9 The patient did not perform the activity before the current illness or injury 88 Not attempted due to Medical conditions or safety concerns Grooming (FIM): 5 (setup) Oral Hygiene (QC): 5 Bathing (FIM): 4 (Sponge bath in shower. Washed and dried all parts except bottom.) Shower/Bathe Self (QC): 3 Upper Body (FIM): 4 Upper Body Dressing (QC): 3 Lower Body Dressing (FIM): 4 (CGA, help to get pants up over hips) Lower Body Dressing (QC): 3 On/Off Footwear (QC): 5 Toileting (FIM): 4 (Per nursing. Would need CGA for standing for clothing management) Toileting Hygiene (QC): 4 (CGA) Toilet/Commode Transfer (FIM): 0 (BSC placed over toilet. Pt reported he hasn' t had BM) Toilet Transfer (QC): 5 (Per nursing) Shower Transfer(FIM): 4 Education OT Patient Education: Modified ADL techniques, Progress toward Goal/Update tx plan, Purpose of tx/functional activities, Safety issues, Transfer techniques Teaching Recipient: Patient Teaching Methods: Demonstration Response to Teaching: Verbalize Understanding, Return Demonstration, Reinforcement Needed OT Short Term Goals Short Term Goals Time Frame: March 14, 2018 Toileting(FIM): 5 Toilet/Commode Transfer(FIM): 5 Additional Short Term Goals: 1-Demonstrate ADL Tasks, 2-Verbalize Understanding , 3-ImproveStrength/Isaiah 1=Demonstrate adherence to instructed precautions during ADL tasks. 2=Patient will verbalize/demonstrate understanding of assistive devices/ modifications for ADL. 3=Patient will improve strength/tolerance for activity to enable patient to perform ADL's. OT Packing Line Worker Goals Correction Goals Time Frame: Mar 28, 2018 Eating (FIM): 6 Eating (QC): 6 Groomin Oral Hygiene (QC): 6 Bathing(FIM): 6 Shower/Bathe Self (QC): 6 Upper Body Dressing(FIM): 6 Upper Body Dressing (QC): 6 Lower Body Dressing(FIM): 6 Lower Body Dressing (QC): 6 On/Off Footwear (QC): 6 Toileting(FIM): 6 Toileting Hygiene (QC): 6 Toilet/Commode Transfer(FIM): 6 Toilet/Commode Transfer (QC): 6 Tub Transfer(FIM): 6 (or shower) Shower Transfer(FIM): 6 (or tub) Comprehension(FIM): 5 Expression (FIM): 4 Social Interaction(FIM): 5 Problem Solving(FIM): 4 Memory(FIM): 4 Additional Goals: 1-Demonstrate ADL Tasks, 2-Verbalize Understanding, 3- ImproveStrength/Isaiah 1=Demonstrate adherence to instructed precautions during ADL tasks. 2=Patient will verbalize/demonstrate understanding of assistive devices/ modifications for ADL. 3=Patient will improve strength/tolerance for activity to enable patient to perform ADL's. OT Education/Plan Problem List/Assessment Pt would benefit from skilled OT to increase his independence in basic self care to allow him to safely return home. Discharge Recommendations Plan/Recommendations: Continue POC Treatment Plan/Plan of Care Patient would benefit from OT for education, treatment and training to promote independence in ADL's, mobility, safety and/or upper extremity function for ADL' s. Plan of Care: ADL Retraining, Caregiver Training, Functional Mobility, Group Exercise/Act as Ind (education, exercise, activity tolerance, funct activities) , UE Funct Exercise/Act, UE Neuromus Re-Ed/Coord, OTHER (edema management) Treatment Duration: Mar 28, 2018 Frequency: Modified Program (IRF) Estimated Hrs Per Day: 1.5 hours per day Agreement: Yes Rehab Potential: Poor Time/GCodes Start Time: 08:28 Stop Time: 09:30 Total Time Billed (hr/min): 62 Billed Treatment Time visit, 62 minutes ADL KERWIN GARCIAS OT March 08, 2018 12:45
[2018-03-08 15:43] VITALS: BP 125/81
[2018-03-08] MEDS: clonazePAM 0.5 MG (KlonoPIN) TAB PEG SCH (20:21)
[2018-03-08] MEDS: SERTRALINE 50 MG (ZOLOFT) TABLET PEG SCH (20:21)
[2018-03-08] MEDS: RIVAROXABAN 20 MG TABLET (XARELTO) PEG SCH (20:21)
[2018-03-08] MEDS: POLYETHYLENE GLYCOL 17 GM (MIRALAX) PACK PO SCH (20:22)
[2018-03-09] MEDS: HYDROmorphone 1 MG/ML (DILAUDID) 1 ML SYRINGE IV PRN ×6 (00:25→19:37)
[2018-03-09] MEDS: RT-ALBUTEROL/IPRATROPIUM 3 ML (DUONEB) VIAL INH SCH ×6 (02:19→22:55)
[2018-03-09] MEDS: CATHETER FLUSH 10 ML SYR IV SCH ×3 (04:11→19:37)
[2018-03-09 05:40] VITALS: BP 141/91
[2018-03-09] MEDS: predniSONE 10 MG TAB PEG SCH (06:40)
[2018-03-09] MEDS: DOCUSATE SODIUM 10 MG/ML 10 ML UDC (COLACE) PEG SCH ×2 (08:03→20:37)
[2018-03-09] MEDS: risperiDONE 0.25 MG (RisperDAL) TAB PEG SCH ×2 (08:03→20:37)
[2018-03-09] MEDS ORDERED: KETOROLAC 60 MG/2 ML VIAL IM PRN (09:45)
[2018-03-09] MEDS: SENNA W/DOCUSATE (SENOKOT S) TABLET PEG SCH ×2 (10:32→20:37)
[2018-03-09] MEDS: KETOROLAC 60 MG/2 ML VIAL IV PRN (10:34)
--- NOTE | 2018-03-09 13:05 | Progress Note-Hospitalist ---
Subjective HPI/CC On Admission Date Seen by Provider: March 09, 2018 Time Seen by Provider: 12:59 I was called by nursing staff were concerned about increasing left lower hard painful anterior chest wall mass. This is been this patient's focal area of discomfort for the past several days. 1 mg by wanted IV every 3 when necessary was only minimally effective 2 mg is getting about an hour or 2 of pain diminishment but it wears off and on his back to significant discomfort. 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 Patient also reports despite tube feeding he is likely not had a bowel movement in a week. CT findings this reveal this adrenal metastasis was slightly larger in the 2-1/2-3 and centimeter range to small to be felt on physical examination and he also had diffuse bony sclerosis presumed metastatic involvement. There were findings suggesting likely micrometastasis of the liver diffusely. Objective Exam Vital Signs Vital Signs Date Time Temp Pulse Resp B/P (MAP) Pulse Ox O2 Delivery O2 Flow Rate FiO2 03/09/18 10:52 95 Trach Collar 6.00 28 03/09/18 05:40 97.2 100 16 141/91 (108) Capillary Refill : General Appearance: No Apparent Distress (Having just received dilauded about 30 minutes ago) Respiratory: Other (There is a hard mass noted over the left lower anterior rib cage it is slightly tender to palpation there is no evidence for erythema or warmth over the skin and no underlying skin abnormality is noted.) Gastrointestinal: Normal Bowel Sounds, No Organomegaly, Soft, Other (PEG tube intact no surrounding erythema noted) Results/Procedures Lab Patient resulted labs reviewed. Assessment/Plan Assessment and Plan Assess & Plan/Chief Complaint 1. Probable left lower anterior rib metastasis symptomatic now. We will apply Duragesic patch 50 g and continue IV dilaudid. 2. 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 Prognosis poor discharge to home highly unlikely unless under hospice circumstance where there is a lot of family support. 3. Likely narcotic bowel if Senokot initiated today and MiraLAX which was started yesterday twice a day are not effective would consider Relistor. Critical Care Critical Care: Critically Ill Patient Clinical Quality Measures DVT/VTE Risk/Contraindication: Risk Factor Score Per Nursin RFS Level Per Nursing on Admit: 4+=Very High GARETT MELGAR MD March 09, 2018 13:05
[2018-03-09] MEDS: fentaNYL PATCH 50 MCG (DURAGESIC) TD SCH (13:53)
[2018-03-09 17:45] VITALS: BP 120/83
[2018-03-09] MEDS: SERTRALINE 50 MG (ZOLOFT) TABLET PEG SCH (20:37)
[2018-03-09] MEDS: POLYETHYLENE GLYCOL 17 GM (MIRALAX) PACK PO SCH (20:37)
[2018-03-09] MEDS: clonazePAM 0.5 MG (KlonoPIN) TAB PEG SCH (20:37)
[2018-03-09] MEDS: RIVAROXABAN 20 MG TABLET (XARELTO) PEG SCH (20:37)
[2018-03-10] MEDS: HYDROmorphone 1 MG/ML (DILAUDID) 1 ML SYRINGE IV PRN ×6 (01:40→21:31)
[2018-03-10] MEDS: CATHETER FLUSH 10 ML SYR IV SCH ×3 (01:41→21:30)
[2018-03-10] MEDS: RT-ALBUTEROL/IPRATROPIUM 3 ML (DUONEB) VIAL INH SCH ×6 (02:32→21:18)
[2018-03-10 05:20] VITALS: BP 112/75
[2018-03-10] MEDS: predniSONE 10 MG TAB PEG SCH (06:23)
[2018-03-10] MEDS: risperiDONE 0.25 MG (RisperDAL) TAB PEG SCH ×2 (08:52→20:49)
[2018-03-10] MEDS: DOCUSATE SODIUM 10 MG/ML 10 ML UDC (COLACE) PEG SCH ×2 (08:52→20:49)
[2018-03-10] MEDS: LORazepam 1 MG (ATIVAN) TAB PEG PRN (08:52)
[2018-03-10] MEDS: SENNA W/DOCUSATE (SENOKOT S) TABLET PEG SCH ×2 (08:52→20:49)
--- NOTE | 2018-03-10 09:53 | Physical Therapy Daily Note ---
PT Daily Note-Current Subjective Patient in bed pre tx, agrees to PT, no complaints of pain at rest. Appearance Patient in bed post tx with nurse call, phone, tray, all needs met. Patient had pain when sitting during treatment in his left side, nurse notified. Mental Status Patient Orientation: Person, Non-Verbal/Aphasic Attachments: Oxygen, PEG Tube Transfers Functional [place] Measure 0=Not Assessed/NA 4=Minimal Assistance 1=Total Assistance 5=Supervision or Setup 2=Maximal Assistance 6=Modified [place] 3=Moderate Assistance 7=Complete IndependenceIRFPAI Quality Coding Scale 6 Independent with activity with or without an assistive device 5 Patient requires set up or clean up by helper. Patient completes activity by themselves 4 Supervision or touching assist (CGA). [place] provide cues , steadying assist 3 The helper provides less than half the effort to complete the activity 2 The helper provides more than half the effort to complete the activity 1 Dependent. The helper does all the effort to complete an activity 7 Patient refused to complete or attempt activity 9 The patient did not perform the activity before the current illness or injury 88 Not attempted due to Medical conditions or safety concerns Transfers (B, C, W/C) (FIM): 4 Scootin Rollin Sit to/from Stand: 5 Bed to/from Chair: 4 no assist needed for sit to stand even from low surfaces Weight Bearing Right Lower Extremity: Right Full Weight Bearing Left Lower Extremity: Left Full Weight Bearing Gait Training Gait (FIM): 2 Distance: 70'x2, 50'x2 Gait Persons Needed: 1 Gait Assistive Device: FWW CGA, patient fatigues easily Treatments bed mobility and transfers, ambulation Assessment Current Status: Fair Progress Improving ambulation, but patient has poor endurance and requires significant rest breaks between walks. He also had to clear his airway with saline and coughing. PT Office Workforce Planner Goals Office Workforce Planner Goals PT Office Workforce Planner Goals Time Frame: Mar 28, 2018 Transfers (B,C,W/C) (FIM): 6 Sit to Lying (QC): 6 Lying-Sitting on Side/Bed(QC): 6 Sit to Stand (QC): 6 Rollin Roll Left to Right (QC): 6 Chair/Dob-hz-Jszvs Xfer(QC): 6 Car Transfer (QC): 6 Does the Patient Walk: Yes Gait (FIM): 6 Gait distance (FIM): 3=150 ft Distance: 150' Walk 10 feet (QC): 6 Walk 10ft-Uneven Surface(QC): 6 Walk 50ft with 2 Turns (QC): 6 Walk 150 ft (QC): 6 Gait Level of Assist: 6 Gait Assistive Device: FWW, Cane Single Point Stairs (FIM): 5 # of Steps: 5 1 Step (curb) (QC): 5 4 Steps (QC): 5 12 Steps (QC): 5 Stairs Level Of Assist: 5 Picking up an Object (QC): 5 PT Plan Problem List Problem List: Activity Tolerance, Functional Strength, Safety, Balance, Gait, Transfer, Bed Mobility Treatment/Plan Treatment Plan: Continue Plan of Care Treatment Plan: Bed Mobility, Education, Functional Activity Isaiah, Functional Strength, Group Therapy, Gait, Safety, Therapeutic Exercise, Transfers Treatment Duration: Mar 28, 2018 Frequency: At least 5 of 7 days/Wk (IRF) Estimated Hrs Per Day: 1.5 hours per day Patient and/or Family Agrees t: Yes Safety Risks/Education Patient Education: Gait Training, Transfer Techniques, Correct Positioning, Safety Issues Teaching Recipient: Patient Teaching Methods: Demonstration, Discussion Response to Teaching: Reinforcement Needed Time/GCodes Time In: 0800 Time Out: 0845 Total Billed Treatment Time: 45 Total Billed Treatment 1 visit FA 10' GT 35' CHAN JOSE PT March 10, 2018 09:53
--- NOTE | 2018-03-10 12:42 | Occupational Ther Daily Note ---
OT Current Status-Daily Note Subjective Pt seen in room, up in bed, agreeable to OT. Pt mentioned pain in L abdomen but did not let it deter him from shower. Appearance Alert, cooperative Mental Status/Objective Functional [place] Measure 0=Not Assessed/NA 4=Minimal Assistance 1=Total Assistance 5=Supervision or Setup 2=Maximal Assistance 6=Modified [place] 3=Moderate Assistance 7=Complete [place] ADL-Treatment IV and PICC were covered with plastic, in preparation for shower. Pt got up from elevated bed with SBA and walked with CGA, FWW to bathroom. He was able to get in and out of shower with SBA but needed a couple trials to pull himself up from shower bench, using grab bars. He washed and dried all parts, leaning to the side to wash his bottom and drying it off when standing, using grab bar for support. He dressed with setup, including socks and was able to pull pants up himself today. He walked back to his bed and got into bed with SBA. O2 over trach, all needs met. Pt moved slowly throughout and took frequent recovery breaks but he was more participative and overall seemed a little less fatigued. Functional [place] Measure 0=Not Assessed/NA 4=Minimal Assistance 1=Total Assistance 5=Supervision or Setup 2=Maximal Assistance 6=Modified [place] 3=Moderate Assistance 7=Complete IndependenceIRFPAI Quality Coding Scale 6 Independent with activity with or without an assistive device 5 Patient requires set up or clean up by helper. Patient completes activity by themselves 4 Supervision or touching assist (CGA). [place] provide cues , steadying assist 3 The helper provides less than half the effort to complete the activity 2 The helper provides more than half the effort to complete the activity 1 Dependent. The helper does all the effort to complete an activity 7 Patient refused to complete or attempt activity 9 The patient did not perform the activity before the current illness or injury 88 Not attempted due to Medical conditions or safety concerns Bathing (FIM): 5 (Washed and dried all aprts, shower bench, grab bars, hand held shower. Blankets to raise seat) Upper Body (FIM): 5 Lower Body Dressing (FIM): 5 Transfers (B, C, W/C) (FIM): 5 Shower Transfer(FIM): 5 (Shower bench, grab bars) Education OT Patient Education: Modified ADL techniques, Progress toward Goal/Update tx plan, Purpose of tx/functional activities, Transfer techniques Teaching Recipient: Patient Teaching Methods: Demonstration, Discussion Response to Teaching: Verbalize Understanding, Return Demonstration OT Short Term Goals Short Term Goals Time Frame: March 14, 2018 Toileting(FIM): 5 Toilet/Commode Transfer(FIM): 5 Additional Short Term Goals: 1-Demonstrate ADL Tasks, 2-Verbalize Understanding , 3-ImproveStrength/Isaiah 1=Demonstrate adherence to instructed precautions during ADL tasks. 2=Patient will verbalize/demonstrate understanding of assistive devices/ modifications for ADL. 3=Patient will improve strength/tolerance for activity to enable patient to perform ADL's. OT Jail Goals Jail Goals Time Frame: Mar 28, 2018 Eating (FIM): 6 Eating (QC): 6 Groomin Oral Hygiene (QC): 6 Bathing(FIM): 6 Shower/Bathe Self (QC): 6 Upper Body Dressing(FIM): 6 Upper Body Dressing (QC): 6 Lower Body Dressing(FIM): 6 Lower Body Dressing (QC): 6 On/Off Footwear (QC): 6 Toileting(FIM): 6 Toileting Hygiene (QC): 6 Toilet/Commode Transfer(FIM): 6 Toilet/Commode Transfer (QC): 6 Tub Transfer(FIM): 6 (or shower) Shower Transfer(FIM): 6 (or tub) Comprehension(FIM): 5 Expression (FIM): 4 Social Interaction(FIM): 5 Problem Solving(FIM): 4 Memory(FIM): 4 Additional Goals: 1-Demonstrate ADL Tasks, 2-Verbalize Understanding, 3- ImproveStrength/Isaiah 1=Demonstrate adherence to instructed precautions during ADL tasks. 2=Patient will verbalize/demonstrate understanding of assistive devices/ modifications for ADL. 3=Patient will improve strength/tolerance for activity to enable patient to perform ADL's. OT Education/Plan Problem List/Assessment Pt would benefit from skilled OT to increase his independence in basic self care to allow him to safely return home. Discharge Recommendations Plan/Recommendations: Continue POC Treatment Plan/Plan of Care Patient would benefit from OT for education, treatment and training to promote independence in ADL's, mobility, safety and/or upper extremity function for ADL' s. Plan of Care: ADL Retraining, Caregiver Training, Functional Mobility, Group Exercise/Act as Ind (education, exercise, activity tolerance, funct activities) , UE Funct Exercise/Act, UE Neuromus Re-Ed/Coord, OTHER (edema management) Treatment Duration: Mar 28, 2018 Frequency: Modified Program (IRF) Estimated Hrs Per Day: 1.5 hours per day Agreement: Yes Rehab Potential: Poor Time/GCodes Start Time: 11:00 Stop Time: 12:00 Total Time Billed (hr/min): 60 Billed Treatment Time visit, 60 minutes ADL KERWIN GARCIAS OT March 10, 2018 12:42
--- NOTE | 2018-03-10 13:52 | Speech Therapy Daily Note ---
Speech Daily Progress Note Subjective Date Seen by Provider: March 10, 2018 Time Seen by Provider: 08:45 The patient was seated upright in bed upon entrance. The patient greeted the clinician appropriately and was agreeable to participation in the dysphagia evaluation. The patient reported lower left abdominal quadrant pain. The patient 's RN was present, who provided pain medication for the patient. Objective Tracheostomy care had recently been completed by RT, therefore, it was not re- done by Speech pathology. - Ice Chips (dyed green): The patient displayed a delayed, faint throat clear following two of ten trials of ice chips. - Puree (dyed blue): No signs/symptoms of aspiration were demonstrated with ten teaspoon trials of puree. Following completion of oral trials, the patient was encouraged to cough and expectorate phlegm from his tracheostomy site in attempts to visualize possible aspiration. Directly following trials, no tinged expectorations (blue or green) were experienced. Ten minutes following the completion of oral trials, the patient requested a saline bullet to provide additional moisture to airway. The patient placed the material into the tracheostomy site and the clinician aided with a placement of a wash cloth. Regardless of thick, copious secretions ( somewhat tinged brown), no visualization of dyed bolus material was present. The clinician visited with the RN regarding the patient's safety to be taken off of the floor for a modified barium swallow. The RN stated she would discuss the patient's safety and appropriateness with the patient's physician prior to placing a modified barium swallow evaluation. The speech pathologist is agreeable to this plan of care and will continue to monitor the patient's swallowing function in the meantime. Assessment Assessment Current Status: Good Progress Treatment Plan Continue Plan of Care Communication Comprehension: 6 (The patient wears glasses.) Expression: 6 (The patient complex information thoroughly to the clinician, however, due to aphonia would benefit from augmentative devices (dry erase board , [place] Speaking Valve).) Social Cognition Social Interaction: 6 (Anti-Depressant) Problem Solvin Memory: 7 Speech Short Term Goals Short Term Goals Short Term Goals 1. The patient will tolerate trials of the Passy [place] Speaking Valve for a duration of two minutes. 2. The patient will tolerate trials of the least restrictive consistency without signs/symptoms of aspiration or laryngeal penetration. Time Frame-STG: One Week Speech Snf Goals It Support Manager Goals 1. The patient will independently don his Passy-Arely Speaking Valve. 2. The patient will tolerate placement of the [place] Speaking Valve indefinitely with the exception of periods of sleep or high exertion. 3. The patient will tolerate a diet of the least restrictive material without signs/symptoms of aspiration or laryngeal penetration. Time Frame: Three Weeks Comprehension: 5 Expression: 4 Social Interaction: 5 Problem Solvin Memory: 4 Speech-Plan Treatment Plan Speech Therapy Treatment Plan: Continue Plan of Care Continue skilled speech pathology to improve swallowing safety. Treatment Duration: March 27, 2018 Frequency: 3 times per week Estimated Hrs Per Day: .5 hour per day Rehab Potential: Poor Safety Risks/Education Teaching Recipient: Patient Teaching Methods: Discussion Response to Teaching: Verbalize Understanding Education Topics Provided: Results, Plan of Care Time Speech Therapy Time In: 08:45 Speech Therapy Time Out: 09:15 Total Billed Time: 30 Billed Treatment Time JAMES Douglas ELIHECTOR QUIJANO March 10, 2018 13:52
--- NOTE | 2018-03-10 14:34 | Therapy Group Daily Note ---
Therapy Daily Group Note Patient Education Topic Home Safety Other/Notes Pt was an active participant in OT/PT group. He was able to attend to information more today and seemed less fatigued overall. 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 He also agreed with discussion/education on home and community safety. He walked to and from group with FWW, CGA and was left up in bed, O2 connected, tube feeding plugged in, all needs met. Start Time: 13:00 Stop Time: 14:20 Total Billed Treatment Time: 80 Total Billed Treatment visit, 80 minutes group KERWIN GARCIAS OT March 10, 2018 14:34
[2018-03-10 18:05] VITALS: BP 113/71
[2018-03-10] MEDS: SERTRALINE 50 MG (ZOLOFT) TABLET PEG SCH (20:49)
[2018-03-10] MEDS: RIVAROXABAN 20 MG TABLET (XARELTO) PEG SCH (20:49)
[2018-03-10] MEDS: POLYETHYLENE GLYCOL 17 GM (MIRALAX) PACK PO SCH (20:49)
[2018-03-10] MEDS: clonazePAM 0.5 MG (KlonoPIN) TAB PEG SCH (20:49)
--- NOTE | 2018-03-10 21:48 | Individualized Plan of Care ---
Individualized Plan of Care Rehab Nursing IPOC Order Admission Date March 06, 2018 at 11:30 Current Orders Orders Admission Order(Inpt,Obs,Sdc) (03/06/18 11:30) Admission Arrival Bed Request (03/06/18 11:30) Pt Evaluate/Treat Request (03/06/18 11:30) Request Ot Evaluate & Treat (03/06/18 11:30) Request For Cognitive Services (03/06/18 11:30) Request For Dysphagia Services (03/06/18 11:30) Lorazepam Injection (Ativan Injection) (03/06/18 13:00) Lorazepam Injection (Ativan Injection) (03/06/18 13:00) Sodium Chloride Flush (Catheter Flush Sy (03/06/18 13:00) Sodium Chloride Flush (Catheter Flush Sy (03/06/18 14:00) Hydromorphone Injection (Dilaudid Inje (03/06/18 13:45) Rn Managed Care-Inpt Rehab Con (03/06/18 14:21) Rehab Nursing Orders-Ipoc (03/06/18 14:21) Turn And Reposition Q2HR (03/06/18 14:21) Weekly Weight (Lbs) WEEK (03/06/18 14:21) Prednisone Tablet (Deltasone Tablet) (03/07/18 07:00) Risperidone Tablet (Risperdal Tablet) (03/06/18 21:00) Rivaroxaban Tablet (Xarelto Tablet) (03/06/18 21:00) Sertraline Tablet (Zoloft Tablet) (03/06/18 21:00) Ondansetron Oral Solution (Zofran Oral S (03/06/18 14:30) Prochlorperazine Tablet (Compazine Table (03/06/18 14:30) Albuterol/Ipra Inhalation Soln (Duoneb I (03/06/18 18:00) Consult Physician (03/06/18 14:33) Ambulate TID (03/06/18 14:41) Sequential Compression Device 08,20 (03/06/18 14:41) Dvt/Vte Risk - Notifiy Physici 08 (03/06/18 14:41) Patient Visit (03/06/18 ) Pt Eval High Complexity (03/06/18 ) Gait Training, Ea 15 Min (03/06/18 ) Patient Visit (03/06/18 ) Exercise Therap, Ea 15 Min (03/06/18 ) Scopolamine Patch (Transderm-Scop Patch) (03/08/18 09:00) Patch Removal (Patch Removal) (03/08/18 08:59) Patient Visit (03/06/18 ) Speech Sound Lang Comp (03/06/18 ) Lorazepam Tablet (Ativan Tablet) (03/07/18 11:00) Clonazepam Tablet (Klonopin Tablet) (03/07/18 21:00) Docusate Sodium Oral Solution (Colace Or (03/07/18 21:00) Hydrocodone/Apap Oral Solution (Lortab 7 (03/07/18 11:00) Albuterol/Ipra Inhalation Soln (Duoneb I (03/07/18 11:00) Patient Visit (03/07/18 ) Dysphagia Evaluation Std (03/07/18 ) Patient Visit (03/07/18 ) Treat. Speech/Lang/Voice (03/07/18 ) Patient Visit (03/07/18 ) Hydromorphone Tablet (Dilaudid Tablet) (03/07/18 16:15) Hydromorphone Tablet (Dilaudid Tablet) (03/07/18 20:15) Hydromorphone Tablet (Dilaudid Tablet) (03/07/18 18:45) Consult General Surgery (03/07/18 20:27) Hydromorphone Injection (Dilaudid Inje (03/07/18 20:40) Abdomen, Flat & Upright/Decub (03/07/18 20:50) Hydromorphone Injection (Dilaudid Inje (03/07/18 21:15) Ct Abdomen/Pelvis W (03/07/18 22:23) Iohexol Injection (Omnipaque 350 Mg/Ml 1 (03/07/18 23:00) Ns (Ivpb) (Sodium Chloride 0.9%) (03/07/18 23:00) Patient Visit (03/07/18 ) Functional Activities, Ea 15 (03/07/18 ) Exercise Therap, Ea 15 Min (03/07/18 ) Polyethylene Glycol Powder Pkt (Miralax (03/08/18 11:45) Polyethylene Glycol Powder Pkt (Miralax (03/08/18 21:00) Patient Visit (03/08/18 ) Exercise Therap, Ea 15 Min (03/08/18 ) Rt Request For Service (03/09/18 16:00) Rt Request For Service (03/10/18 06:00) Rt Request For Service (03/10/18 16:00) Rt Request For Service (03/11/18 06:00) Rt Request For Service (03/11/18 16:00) Rt Request For Service (03/12/18 06:00) Rt Request For Service (03/12/18 16:00) Rt Request For Service (03/13/18 06:00) Rt Request For Service (03/13/18 16:00) Rt Request For Service (03/14/18 06:00) Rt Request For Service (03/14/18 16:00) Rt Request For Service (03/15/18 06:00) Rt Request For Service (03/15/18 16:00) Rt Request For Service (03/16/18 06:00) Rt Request For Service (03/16/18 16:00) Hydromorphone Injection (Dilaudid Inje (03/09/18 09:45) Senna S Tablet (Senokot S Tablet) (03/09/18 09:45) Ketorolac Injection (Toradol Injection) (03/09/18 09:45) Ketorolac Injection (Toradol Injection) (03/09/18 10:30) Fentanyl Patch (Duragesic Patch) (03/09/18 13:00) Patch Removal (Patch Removal) (03/12/18 13:00) Patient Visit (03/10/18 ) Functional Activities, Ea 15 (03/10/18 ) Gait Training, Ea 15 Min (03/10/18 ) Dysphagia Therapy (03/10/18 ) Patient Visit (03/10/18 ) Patient Visit (03/10/18 ) Rehab Nursing Orders: Ongoing Assess. of Cognitive Status, Ongoing Assess. of Function Status, Bladder Management, Bowel Management, Disease Management & Educaiton, DVT Prophylaxis, Fall Prevention, Fluid/Electrolyte/Nutrition Mgmt, Infection Prevention, Medication Management & Education, Management of Skin Intergrity, Nutrition Management, Pain Management, Patient/Family Support, Swallow Precautions Other Nursing Orders: Monitor for OIC and urinary retention PT IPOC Problem List: Activity Tolerance, Functional Strength, Safety, Balance, Gait, Transfer, Bed Mobility Treatment Plan: Continue Plan of Care Bed Mobility, Education, Functional Activity Isaiah, Functional Strength, Group Therapy, Gait, Safety, Therapeutic Exercise, Transfers Treatment Duration: Mar 28, 2018 Frequency: At least 5 of 7 days/Wk (IRF) Estimated Hrs Per Day: 1.5 hours per day OT IPOC Problems: Decreased Activ Tolerance, Decreased UE Strength, Dependent Transfers , Impaired Funct Balance, Impaired Self-Care Skills OT Treatment, Training and Edu: Yes OT Problems Pt would benefit from skilled OT to increase his independence in basic self care to allow him to safely return home. Plan of Care: ADL Retraining, Caregiver Training, Functional Mobility, Group Exercise/Act as Ind (education, exercise, activity tolerance, funct activities) , UE Funct Exercise/Act, UE Neuromus Re-Ed/Coord, OTHER (edema management) Treatment Duration: Mar 28, 2018 Frequency: Modified Program (IRF) Estimated Hrs Per Day: 1.[address] IPOC Speech Therapy Treatment Plan: Continue Plan of Care Treatment Duration: March 27, 2018 Frequency: 3 times per week Estimated Hrs Per Day: .5 hour per day Rn Managed Care/Case Mgmt Rn Managed Care/Case Managemen: Discharge Planning, Patient/Family Counseling Dietitian/Manager Green Dietitian/Manager Green to monitor nutritional status and make changes and/or recommendations as needed and work with speech pathology on dietary upgrades as the occur. Physician IPOC Medical Issues being managed closely and that require the 24 hour availability of a physician:Wt Loss Dysphagia on Tube feeds Pain management for metatstatic Lung CA Bilateral pleural effusions Trach care Depression Medical Issues: Bowel/Bladder Function, DVT Prophylaxis, Falls Precautions, Fluid/Electrolyte/Nutrition Balance, Infection Protection, Pain Management, Swallowing Precautions, Other (List) (as per above) Brief Synthesis of Preadmission Screen, Post-Admission Evaluation, and Therapy Evaluations: 42 yo male who had been Independent and working prior to Onset of Lung CA with mets to Bone now s/p Trach and Peg Tube and on Tube feeds DR Wall has seen over the weekend as well as Surgery Imaging studies noted Patient Placed on D Patch for penhanced pain control Medical Prognosis: Fair short term senior care defer to [facility] Anticipated Length of Stay: 03-27-18 Max level of functional [place] with enhanced pain control and improved communication skills due to trach collar Anticipated d/c Destination: Home with [facility] and RACHNA Stiles MD March 10, 2018 21:48
--- NOTE | 2018-03-10 21:55 | PM & R (SOAP) Progress Note ---
Subjective This was a face to face visit with the patient. Date Seen by Provider: March 10, 2018 Time Seen by Provider: 21:30 Subjective/Events-last exam Patient was seen in his room this evening resting comfortably in bed appreciate Dr Casanova note and orders for D patch Appreciate Imaging study with bilateral pleural effusions noted.Patient Min assist for transfers Objective Physician Exam Last Set of Vital Signs Vital Signs Date Time Temp Pulse Resp B/P (MAP) Pulse Ox O2 Delivery O2 Flow Rate FiO2 03/10/18 21:18 95 Trach Collar 6.00 28 03/10/18 05:20 96.0 107 18 112/75 (87) Capillary Refill : I&O Intake and Output 03/10/18 00:00 Intake Total 1361 ml Output Total 1100 ml Balance 261 ml Intake Oral 0 ml Tube Feeding 661 ml Other 700 ml Output Urine Total 1100 ml General: Alert, Oriented X3, Cooperative, No Acute Distress HEENT: Atraumatic, PERRLA, EOMI, Mucous Memb Moist/[place], Other (NPO) Neck: Other (Trach collar in place with 28% 02) Lungs: Clear to Auscultation, Other (s/p infusaport) Heart: Regular Rate Abdomen: Normal Bowel Sounds, Soft, No Tenderness, Other (s/p peg) Extremities: No Edema Neuro: Other (Generalized weakness Lower limbs > upper) Psych/Mental Status: Other (Flat affect appears depressed) Assessment/Plan Assessment and Plan 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
[2018-03-11] MEDS: RT-ALBUTEROL/IPRATROPIUM 3 ML (DUONEB) VIAL INH SCH ×6 (01:01→22:32)
[2018-03-11] MEDS: HYDROmorphone 1 MG/ML (DILAUDID) 1 ML SYRINGE IV PRN ×7 (01:15→22:12)
[2018-03-11] MEDS: CATHETER FLUSH 10 ML SYR IV SCH ×3 (01:16→21:31)
[2018-03-11] MEDS: predniSONE 10 MG TAB PEG SCH (06:16)
[2018-03-11 06:22] VITALS: BP 105/72
--- NOTE | 2018-03-11 08:46 | Physical Therapy Daily Note ---
PT Daily Note-Current Subjective Patient in bed pre tx, agrees to PT, indicates he has pain of 5/10 in his left side. By the end of treatment he has intense pain in his left side and needs wheelchair to go back to his room. Doctor notified of pain. Appearance Patient in bed post tx with nurse call, phone, tray, all needs met. Mental Status Patient Orientation: Person, Non-Verbal/Aphasic Attachments: Oxygen, PEG Tube Transfers Functional [place] Measure 0=Not Assessed/NA 4=Minimal Assistance 1=Total Assistance 5=Supervision or Setup 2=Maximal Assistance 6=Modified [place] 3=Moderate Assistance 7=Complete IndependenceIRFPAI Quality Coding Scale 6 Independent with activity with or without an assistive device 5 Patient requires set up or clean up by helper. Patient completes activity by themselves 4 Supervision or touching assist (CGA). [place] provide cues , steadying assist 3 The helper provides less than half the effort to complete the activity 2 The helper provides more than half the effort to complete the activity 1 Dependent. The helper does all the effort to complete an activity 7 Patient refused to complete or attempt activity 9 The patient did not perform the activity before the current illness or injury 88 Not attempted due to Medical conditions or safety concerns Transfers (B, C, W/C) (FIM): 4 Scootin Rollin Supine to/from Sit: 5 Sit to/from Stand: 4 Bed to/from Chair: 4 Weight Bearing Right Lower Extremity: Right Full Weight Bearing Left Lower Extremity: Left Full Weight Bearing Gait Training Gait (FIM): 2 Distance: 120', 50' Gait Level of Assist: 4 Gait Persons Needed: 1 Gait Assistive Device: FWW slow ambulation, CGA Exercises NuStep Minutes: 10 NuStep Workload: 3 Treatments bed mobility and transfers, ambulation, functional strengthening Assessment Current Status: Fair Progress Improving ambulation but has intense pain in left side with activity. He does get dizzy with supine to sit but he recovers in a short time. PT Show Girl Goals Show Girl Goals PT [facility] Goals Time Frame: Mar 28, 2018 Transfers (B,C,W/C) (FIM): 6 Sit to Lying (QC): 6 Lying-Sitting on Side/Bed(QC): 6 Sit to Stand (QC): 6 Rollin Roll Left to Right (QC): 6 Chair/Qdy-cn-Gztui Xfer(QC): 6 Car Transfer (QC): 6 Does the Patient Walk: Yes Gait (FIM): 6 Gait distance (FIM): 3=150 ft Distance: 150' Walk 10 feet (QC): 6 Walk 10ft-Uneven Surface(QC): 6 Walk 50ft with 2 Turns (QC): 6 Walk 150 ft (QC): 6 Gait Level of Assist: 6 Gait Assistive Device: FWW, Cane Single Point Stairs (FIM): 5 # of Steps: 5 1 Step (curb) (QC): 5 4 Steps (QC): 5 12 Steps (QC): 5 Stairs Level Of Assist: 5 Picking up an Object (QC): 5 PT Plan Problem List Problem List: Activity Tolerance, Functional Strength, Safety, Balance, Gait, Transfer, Bed Mobility, ROM Treatment/Plan Treatment Plan: Continue Plan of Care Treatment Plan: Bed Mobility, Education, Functional Activity Isaiah, Functional Strength, Group Therapy, Gait, Safety, Therapeutic Exercise, Transfers Treatment Duration: Mar 28, 2018 Frequency: At least 5 of 7 days/Wk (IRF) Estimated Hrs Per Day: 1.5 hours per day Patient and/or Family Agrees t: Yes Safety Risks/Education Patient Education: Gait Training, Transfer Techniques, Correct Positioning, Safety Issues Teaching Recipient: Patient Teaching Methods: Demonstration, Discussion Response to Teaching: Reinforcement Needed Time/GCodes Time In: 0800 Time Out: 0845 Total Billed Treatment Time: 45 Total Billed Treatment 1 visit EX 10' GT 35' CHAN JOSE PT March 11, 2018 08:46
[2018-03-11] MEDS: SCOPOLAMINE PATCH REMOVAL TP SCH (08:51)
[2018-03-11] MEDS: risperiDONE 0.25 MG (RisperDAL) TAB PEG SCH ×2 (08:51→21:30)
[2018-03-11] MEDS: LORazepam 1 MG (ATIVAN) TAB PEG PRN (08:51)
[2018-03-11] MEDS: DOCUSATE SODIUM 10 MG/ML 10 ML UDC (COLACE) PEG SCH ×2 (08:51→21:31)
[2018-03-11] MEDS: SENNA W/DOCUSATE (SENOKOT S) TABLET PEG SCH ×2 (08:51→21:31)
--- NOTE | 2018-03-11 09:07 | Speech Therapy Daily Note ---
Speech Daily Progress Note Subjective Date Seen by Provider: March 11, 2018 Time Seen by Provider: 08:45 The patient was laying in bed upon entrance. The patient greeted the clinician appropriately and was agreeable to participation in the dysphagia treatment session. The patient reports his pain level is a "4" and locates it to the lower , left quadrant. The RN is present who stated the patient recently received pain medication. The patient showed the clinician green and blue expectorated secretions from the prior day. Due to this visualization, oral trials will cease. Per patient's physician, Dr. Darden, he is unsure if the patient is able to be removed from the floor for a modified barium swallow evaluation. Dr. Darden stated he would discuss the option of the patient leaving the floor with his additional treating physicians. Objective Dysphagia Exercise: Base of tongue retraction, pharyngeal contraction, laryngeal elevation, and adductor fold exercises were initiated on this date. With maximum clinician cueing, the patient demonstrated fair accuracy with five repetitions of each exercise performed. The patient did appear more fatigued following the completion of the exercises, however, displayed high participation throughout the session. Assessment Assessment Current Status: Fair Progress Treatment Plan Continue Plan of Care Communication Comprehension: 6 (The patient wears glasses.) Expression: 6 (The patient complex information thoroughly to the clinician, however, due to aphonia would benefit from augmentative devices (dry erase board , Passy Arely Speaking Valve).) Social Cognition Social Interaction: 6 (Anti-Depressant) Problem Solvin Memory: 7 Speech Short Term Goals Short Term Goals Short Term Goals 1. The patient will tolerate trials of the Passy [place] Speaking Valve for a duration of two minutes. 2. The patient will tolerate trials of the least restrictive consistency without signs/symptoms of aspiration or laryngeal penetration. Time Frame-STG: One Week Speech Mcc Goals Pill Coater Goals 1. The patient will independently don his Passy-[place] Speaking Valve. 2. The patient will tolerate placement of the Passy-[place] Speaking Valve indefinitely with the exception of periods of sleep or high exertion. 3. The patient will tolerate a diet of the least restrictive material without signs/symptoms of aspiration or laryngeal penetration. Time Frame: Three Weeks Comprehension: 5 Expression: 4 Social Interaction: 5 Problem Solvin Memory: 4 Speech-Plan Treatment Plan Speech Therapy Treatment Plan: Continue Plan of Care Continue skilled speech pathology to target improved swallowing safety. Treatment Duration: March 27, 2018 Frequency: 3 times per week Estimated Hrs Per Day: .5 hour per day Rehab Potential: Poor Safety Risks/Education Teaching Recipient: Patient Teaching Methods: Demonstration, Handout, Discussion Response to Teaching: Return Demonstration, Reinforcement Needed Education Topics Provided: Dysphagia Exercises Time Speech Therapy Time In: 08:45 Speech Therapy Time Out: 09:15 Total Billed Time: 30 Billed Treatment Time 1JAMES [facility]IZ[facility] ST March 11, 2018 09:07
[2018-03-11] MEDS: SCOPOLAMINE 1.5 MG (TRANSDERM-SCOP) PATCH TOP SCH (12:40)
--- NOTE | 2018-03-11 12:50 | Occupational Ther Daily Note ---
OT Current Status-Daily Note Subjective Pt seen in room, up in bed, agreeable to OT. Reported pain L side of abdomen and nursing notified for meds. Appearance Alert, cooperative Mental Status/Objective Functional [place] Measure 0=Not Assessed/NA 4=Minimal Assistance 1=Total Assistance 5=Supervision or Setup 2=Maximal Assistance 6=Modified [place] 3=Moderate Assistance 7=Complete [place] ADL-Treatment Pt declined a shower and changing clothes today but did agree to trial beth wraps to help decrease edema in bilat forearms and upper arms. Conferred with Dr. Darden who said it was OK to try compression for edema management. 2" and 4 " beth wraps applied to bilat UEs using figure of 8 wraps. Pt reported no discomfort from wraps at end of tx. Functional [place] Measure 0=Not Assessed/NA 4=Minimal Assistance 1=Total Assistance 5=Supervision or Setup 2=Maximal Assistance 6=Modified [place] 3=Moderate Assistance 7=Complete IndependenceIRFPAI Quality Coding Scale 6 Independent with activity with or without an assistive device 5 Patient requires set up or clean up by helper. Patient completes activity by themselves 4 Supervision or touching assist (CGA). [place] provide cues , steadying assist 3 The helper provides less than half the effort to complete the activity 2 The helper provides more than half the effort to complete the activity 1 Dependent. The helper does all the effort to complete an activity 7 Patient refused to complete or attempt activity 9 The patient did not perform the activity before the current illness or injury 88 Not attempted due to Medical conditions or safety concerns Other Treatment Sitting EOB without help, tube feeding and O2 in place. Measured director mission and pinch strength. Sole Molder: R 47, 53, 51 lb (average 50.3 lb) L 42, 47, 44 (average 44.3 lb) Lateral pinch: R 19, L 16 lb. 3 jaw tammy pinch: R 12, L 16 lb. Tip pinch : R 9, L 9 Pt has functional hand strength but activity tolerance continues decreased and he continues to have edema in bilat UEs. Pt did bilat UE activity with no additional weight on arms but with beth wraps on UEs, for activity tolerance and edema management. Pt was able to get back into bed without help, left with all needs met. Education OT Patient Education: Purpose of tx/functional activities Teaching Recipient: Patient Teaching Methods: Discussion Response to Teaching: Verbalize Understanding OT Short Term Goals Short Term Goals Time Frame: March 14, 2018 Toileting(FIM): 5 Toilet/Commode Transfer(FIM): 5 Additional Short Term Goals: 1-Demonstrate ADL Tasks, 2-Verbalize Understanding , 3-ImproveStrength/Isaiah 1=Demonstrate adherence to instructed precautions during ADL tasks. 2=Patient will verbalize/demonstrate understanding of assistive devices/ modifications for ADL. 3=Patient will improve strength/tolerance for activity to enable patient to perform ADL's. OT Cake Batter Mixer Goals [facility] Goals Time Frame: Mar 28, 2018 Eating (FIM): 6 Eating (QC): 6 Groomin Oral Hygiene (QC): 6 Bathing(FIM): 6 Shower/Bathe Self (QC): 6 Upper Body Dressing(FIM): 6 Upper Body Dressing (QC): 6 Lower Body Dressing(FIM): 6 Lower Body Dressing (QC): 6 On/Off Footwear (QC): 6 Toileting(FIM): 6 Toileting Hygiene (QC): 6 Toilet/Commode Transfer(FIM): 6 Toilet/Commode Transfer (QC): 6 Tub Transfer(FIM): 6 (or shower) Shower Transfer(FIM): 6 (or tub) Comprehension(FIM): 5 Expression (FIM): 4 Social Interaction(FIM): 5 Problem Solving(FIM): 4 Memory(FIM): 4 Additional Goals: 1-Demonstrate ADL Tasks, 2-Verbalize Understanding, 3- ImproveStrength/Isaiah 1=Demonstrate adherence to instructed precautions during ADL tasks. 2=Patient will verbalize/demonstrate understanding of assistive devices/ modifications for ADL. 3=Patient will improve strength/tolerance for activity to enable patient to perform ADL's. OT Education/Plan Problem List/Assessment Pt would benefit from skilled OT to increase his independence in basic self care to allow him to safely return home. Discharge Recommendations Plan/Recommendations: Continue POC Treatment Plan/Plan of Care Patient would benefit from OT for education, treatment and training to promote independence in ADL's, mobility, safety and/or upper extremity function for ADL' s. Plan of Care: ADL Retraining, Caregiver Training, Functional Mobility, Group Exercise/Act as Ind (education, exercise, activity tolerance, funct activities) , UE Funct Exercise/Act, UE Neuromus Re-Ed/Coord, OTHER (edema management) Treatment Duration: Mar 28, 2018 Frequency: Modified Program (IRF) Estimated Hrs Per Day: 1.5 hours per day Agreement: Yes Rehab Potential: Poor Time/GCodes Start Time: 11:00 Stop Time: 12:00 Total Time Billed (hr/min): 60 Billed Treatment Time visit, ADL 20 minutes, neuromotor 10 minutes, functional activity 30 minutes KERWIN GARCIAS OT March 11, 2018 12:50
--- NOTE | 2018-03-11 13:22 | Occupational Ther Daily Note ---
OT Current Status-Daily Note Subjective Pt seen in room, up in bed, agreeable to OT. No pain mentioned. Appearance Alert, cooperative Mental Status/Objective Functional [place] Measure 0=Not Assessed/NA 4=Minimal Assistance 1=Total Assistance 5=Supervision or Setup 2=Maximal Assistance 6=Modified [place] 3=Moderate Assistance 7=Complete [place] ADL-Treatment Functional [place] Measure 0=Not Assessed/NA 4=Minimal Assistance 1=Total Assistance 5=Supervision or Setup 2=Maximal Assistance 6=Modified [place] 3=Moderate Assistance 7=Complete IndependenceIRFPAI Quality Coding Scale 6 Independent with activity with or without an assistive device 5 Patient requires set up or clean up by helper. Patient completes activity by themselves 4 Supervision or touching assist (CGA). [place] provide cues , steadying assist 3 The helper provides less than half the effort to complete the activity 2 The helper provides more than half the effort to complete the activity 1 Dependent. The helper does all the effort to complete an activity 7 Patient refused to complete or attempt activity 9 The patient did not perform the activity before the current illness or injury 88 Not attempted due to Medical conditions or safety concerns Other Treatment Pt did 10-15 reps bilat UE exercise with red (medium) theraband because active movement can help mobilize edema. Pt recalled 4 of 5 exercises and did them with only occasional cues. He was also given blue (firm) foam hand exercises and did 20 squeezes per hand, to help decrease edema. Pt's beth wraps were not staying on so they were removed but they were effective in decreasing edema in forearms and upper arms. Will trial Tubigrip which should stay on better and provide consistent compression to UEs. Pt left up in bed, all needs met. Education OT Patient Education: Exercise program, Purpose of tx/functional activities Teaching Recipient: Patient Teaching Methods: Discussion Response to Teaching: Verbalize Understanding, Return Demonstration OT Short Term Goals Short Term Goals Time Frame: March 14, 2018 Toileting(FIM): 5 Toilet/Commode Transfer(FIM): 5 Additional Short Term Goals: 1-Demonstrate ADL Tasks, 2-Verbalize Understanding , 3-ImproveStrength/Isaiah 1=Demonstrate adherence to instructed precautions during ADL tasks. 2=Patient will verbalize/demonstrate understanding of assistive devices/ modifications for ADL. 3=Patient will improve strength/tolerance for activity to enable patient to perform ADL's. OT Long-Term Goals Stranding Machine Operator Helper Goals Time Frame: Mar 28, 2018 Eating (FIM): 6 Eating (QC): 6 Groomin Oral Hygiene (QC): 6 Bathing(FIM): 6 Shower/Bathe Self (QC): 6 Upper Body Dressing(FIM): 6 Upper Body Dressing (QC): 6 Lower Body Dressing(FIM): 6 Lower Body Dressing (QC): 6 On/Off Footwear (QC): 6 Toileting(FIM): 6 Toileting Hygiene (QC): 6 Toilet/Commode Transfer(FIM): 6 Toilet/Commode Transfer (QC): 6 Tub Transfer(FIM): 6 (or shower) Shower Transfer(FIM): 6 (or tub) Comprehension(FIM): 5 Expression (FIM): 4 Social Interaction(FIM): 5 Problem Solving(FIM): 4 Memory(FIM): 4 Additional Goals: 1-Demonstrate ADL Tasks, 2-Verbalize Understanding, 3- ImproveStrength/Isaiah 1=Demonstrate adherence to instructed precautions during ADL tasks. 2=Patient will verbalize/demonstrate understanding of assistive devices/ modifications for ADL. 3=Patient will improve strength/tolerance for activity to enable patient to perform ADL's. OT Education/Plan Problem List/Assessment Pt would benefit from skilled OT to increase his independence in basic self care to allow him to safely return home. Discharge Recommendations Plan/Recommendations: Continue POC Treatment Plan/Plan of Care Patient would benefit from OT for education, treatment and training to promote independence in ADL's, mobility, safety and/or upper extremity function for ADL' s. Plan of Care: ADL Retraining, Caregiver Training, Functional Mobility, Group Exercise/Act as Ind (education, exercise, activity tolerance, funct activities) , UE Funct Exercise/Act, UE Neuromus Re-Ed/Coord, OTHER (edema management) Treatment Duration: Mar 28, 2018 Frequency: Modified Program (IRF) Estimated Hrs Per Day: 1.5 hours per day Agreement: Yes Rehab Potential: Poor Time/GCodes Start Time: 13:00 Stop Time: 13:15 Total Time Billed (hr/min): 15 Billed Treatment Time visit, 15 minutes exercise KERWIN GARCIAS OT March 11, 2018 13:22
--- NOTE | 2018-03-11 14:42 | Physical Therapy Daily Note ---
PT Daily Note-Current Subjective Patient in bed pre tx agrees to PT, no complaints of pain at rest. Patient agrees to exercises in bed. Appearance Patient in bed post tx with nurse call, phone, tray, all needs met. Mental Status Patient Orientation: Person, Non-Verbal/Aphasic Transfers Functional [place] Measure 0=Not Assessed/NA 4=Minimal Assistance 1=Total Assistance 5=Supervision or Setup 2=Maximal Assistance 6=Modified [place] 3=Moderate Assistance 7=Complete IndependenceIRFPAI Quality Coding Scale 6 Independent with activity with or without an assistive device 5 Patient requires set up or clean up by helper. Patient completes activity by themselves 4 Supervision or touching assist (CGA). [place] provide cues , steadying assist 3 The helper provides less than half the effort to complete the activity 2 The helper provides more than half the effort to complete the activity 1 Dependent. The helper does all the effort to complete an activity 7 Patient refused to complete or attempt activity 9 The patient did not perform the activity before the current illness or injury 88 Not attempted due to Medical conditions or safety concerns Weight Bearing Right Lower Extremity: Right Full Weight Bearing Left Lower Extremity: Left Full Weight Bearing Exercises Supine Ex: Bridging, Ankle pumps, Quad Set, Glut sets, Heel Slides, Short Arc Quads, Straight leg raise, Hip abd/add Supine Reps: 20 Patient performed exercises very slowly and needed occasional rest breaks. Treatments functional strengthening Assessment Current Status: Poor Progress poor endurance PT Nursing Home Goals Cemetery Worker Goals PT Cemetery Worker Goals Time Frame: Mar 28, 2018 Transfers (B,C,W/C) (FIM): 6 Sit to Lying (QC): 6 Lying-Sitting on Side/Bed(QC): 6 Sit to Stand (QC): 6 Rollin Roll Left to Right (QC): 6 Chair/Rxb-ug-Jwyqh Xfer(QC): 6 Car Transfer (QC): 6 Does the Patient Walk: Yes Gait (FIM): 6 Gait distance (FIM): 3=150 ft Distance: 150' Walk 10 feet (QC): 6 Walk 10ft-Uneven Surface(QC): 6 Walk 50ft with 2 Turns (QC): 6 Walk 150 ft (QC): 6 Gait Level of Assist: 6 Gait Assistive Device: FWW, Cane Single Point Stairs (FIM): 5 # of Steps: 5 1 Step (curb) (QC): 5 4 Steps (QC): 5 12 Steps (QC): 5 Stairs Level Of Assist: 5 Picking up an Object (QC): 5 PT Plan Problem List Problem List: Activity Tolerance, Functional Strength, Safety, Balance, Gait, Transfer, Bed Mobility Treatment/Plan Treatment Plan: Continue Plan of Care Treatment Plan: Bed Mobility, Education, Functional Activity Isaiah, Functional Strength, Group Therapy, Gait, Safety, Therapeutic Exercise, Transfers Treatment Duration: Mar 28, 2018 Frequency: At least 5 of 7 days/Wk (IRF) Estimated Hrs Per Day: 1.5 hours per day Patient and/or Family Agrees t: Yes Safety Risks/Education Patient Education: Correct Positioning, Safety Issues Teaching Recipient: Patient Teaching Methods: Demonstration, Discussion Response to Teaching: Reinforcement Needed Time/GCodes Time In: 1415 Time Out: 1445 Total Billed Treatment Time: 30 Total Billed Treatment 1 visit EX 30' CHAN JOSE PT March 11, 2018 14:42
--- NOTE | 2018-03-11 15:50 | PM & R (SOAP) Progress Note ---
Subjective This was a face to face visit with the patient. Date Seen by Provider: March 11, 2018 Time Seen by Provider: 08:00 Subjective/Events-last exam Patient was seen in his room this AM Patient Min assist for transfers Discussed with PT earlier today re left rib pain Xrays pending DR Wall has addressed-D Patch ordered Patient receving RT with Radiation Oncology Perhaps RT may be palliative for rib pain if Xray suggests Mets.Tolerating Therapies Discussed with ST Patient had trila of [place] valve but patient with secretions will f/u re this [place] uncertain if MBS would be helpful at this time will f/u Review of Systems Musculoskeletal: other (left inferior rib pain) Neurological: Weakness Objective Physician Exam Last Set of Vital Signs Vital Signs Date Time Temp Pulse Resp B/P (MAP) Pulse Ox O2 Delivery O2 Flow Rate FiO2 03/11/18 12:10 97.6 03/11/18 10:53 96 Trach Collar 6.00 28 03/11/18 06:22 106 18 105/72 (83) Capillary Refill : I&O Intake and Output 03/11/18 00:00 Intake Total 1620 ml Output Total 1000 ml Balance 620 ml Intake Oral 0 ml Tube Feeding 720 ml Other 900 ml Output Urine Total 1000 ml General: Alert, Oriented X3, Cooperative, No Acute Distress HEENT: Atraumatic, PERRLA, EOMI, Mucous Memb Moist/[place], Other (NPO) Neck: Other (Trach collar in place with 28% 02) Lungs: Clear to Auscultation, Other (s/p infusaport) Heart: Regular Rate Abdomen: Normal Bowel Sounds, Soft, No Tenderness, Other (s/p peg) Extremities: No Edema Neuro: Other (Generalized weakness Lower limbs > upper) Psych/Mental Status: Other (Flat affect appears depressed) Assessment/Plan Assessment and Plan Cirtical illness myopathy s/p resp failure Ongoing Rad Therapy with Radiation Oncology Left RIB pain Check Xray results pending 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
--- NOTE | 2018-03-11 17:33 | Diagnostic Imaging Report ---
INDICATION: Rib pain. Three views were obtained. FINDINGS: There is left basilar atelectasis and/or pneumonitis and a left pleural effusion. There are no displaced rib fractures. IMPRESSION: Left basilar infiltrate suspect for pneumonia with a left pleural effusion. No definite displaced rib fractures. Possibly the patient is experiencing pleurisy. Dictated by: Dictated on workstation # [id number]
[2018-03-11 18:43] VITALS: BP 116/79
[2018-03-11] MEDS: SERTRALINE 50 MG (ZOLOFT) TABLET PEG SCH (21:30)
[2018-03-11] MEDS: clonazePAM 0.5 MG (KlonoPIN) TAB PEG SCH (21:30)
[2018-03-11] MEDS: RIVAROXABAN 20 MG TABLET (XARELTO) PEG SCH (21:30)
[2018-03-11] MEDS: POLYETHYLENE GLYCOL 17 GM (MIRALAX) PACK PO SCH (21:31)
[2018-03-12] MEDS: RT-ALBUTEROL/IPRATROPIUM 3 ML (DUONEB) VIAL INH SCH ×6 (02:00→21:51)
[2018-03-12] MEDS: HYDROmorphone 1 MG/ML (DILAUDID) 1 ML SYRINGE IV PRN ×6 (03:40→20:52)
[2018-03-12 06:00] VITALS: BP 107/69
[2018-03-12] MEDS: predniSONE 10 MG TAB PEG SCH (06:15)
[2018-03-12] MEDS: CATHETER FLUSH 10 ML SYR IV SCH ×3 (06:15→20:55)
[2018-03-12] MEDS: DOCUSATE SODIUM 10 MG/ML 10 ML UDC (COLACE) PEG SCH ×2 (08:39→20:54)
[2018-03-12] MEDS: SENNA W/DOCUSATE (SENOKOT S) TABLET PEG SCH ×2 (08:40→20:54)
[2018-03-12] MEDS: LORazepam 1 MG (ATIVAN) TAB PEG PRN (08:40)
[2018-03-12] MEDS: risperiDONE 0.25 MG (RisperDAL) TAB PEG SCH ×2 (08:40→20:54)
--- NOTE | 2018-03-12 09:20 | Physical Therapy Daily Note ---
PT Daily Note-Current Subjective Patient in bed pre tx, agrees to PT, has pain of 5/10 in his left side. Appearance Patient in bed post tx with nurse call, phone, tray, all needs met. Mental Status Patient Orientation: Person, Normal For Age Attachments: Oxygen, PEG Tube Transfers Functional [place] Measure 0=Not Assessed/NA 4=Minimal Assistance 1=Total Assistance 5=Supervision or Setup 2=Maximal Assistance 6=Modified [place] 3=Moderate Assistance 7=Complete IndependenceIRFPAI Quality Coding Scale 6 Independent with activity with or without an assistive device 5 Patient requires set up or clean up by helper. Patient completes activity by themselves 4 Supervision or touching assist (CGA). [place] provide cues , steadying assist 3 The helper provides less than half the effort to complete the activity 2 The helper provides more than half the effort to complete the activity 1 Dependent. The helper does all the effort to complete an activity 7 Patient refused to complete or attempt activity 9 The patient did not perform the activity before the current illness or injury 88 Not attempted due to Medical conditions or safety concerns Transfers (B, C, W/C) (FIM): 4 Scootin Rollin Roll Left to Right (QC): 4 Supine to/from Sit: 5 Sit to/from Stand: 4 Sit to Lying (QC): 4 Sit to Stand (QC): 4 Chair/[place] Xfer(QC): 4 Bed to/from Chair: 4 Car Transfer (QC): 4 Patient performs bed mobility with SBA, sit to stand and stand pivot transfer with CGA, car transfer with CGA. Weight Bearing Right Lower Extremity: Right Full Weight Bearing Left Lower Extremity: Left Full Weight Bearing Gait Training Gait (FIM): 2 Distance: 50'x3 Walk 10 feet (QC): 4 Walk 50 ft with 2 Turns(QC): 4 Walk 150 ft (QC): 88 Walking 10ft/uneven surface-QC: 4 Gait Level of Assist: 4 Gait Persons Needed: 1 Gait Assistive Device: FWW Patient ambulated 50' with a rolling walker with CGA, including 50' with at least 2 turns of 90 degrees and 10' over an uneven surface. Patient ambulates slowly and he did not ambulate as far today due to his left trunk pain. Nurse was notified and he got some pain meds. He said his pain got up to 6-7/10. Wheelchair Training Does the Pt Use a Wheelchair?: No Stair Training Stair Training: Handrails/: uses walker Stairs (FIM): 1 #of Steps: 1 1 Step (curb) (QC): 4 Stairs: Pattern: Step to Level of Assist: 4 Patient can go up and down 1 step using a rolling walker with CGA. Balance Picking up an Object (QC): 88 Exercises Supine Ex: Ankle pumps, Quad Set, Glut sets, Heel Slides, Short Arc Quads, Straight leg raise, Hip abd/add Supine Reps: 20 Patient's side pain became too much so he went back to his room and performed bed exercises. Treatments bed mobility and transfers, ambulation, functional strengthening, stair training Assessment Current Status: Poor Progress Pain in his left side kept patient from ambulating as far as normal. PT Alf Goals Computer Systems Software Architect Goals PT Alf Goals Time Frame: Mar 28, 2018 Transfers (B,C,W/C) (FIM): 6 Sit to Lying (QC): 6 Lying-Sitting on Side/Bed(QC): 6 Sit to Stand (QC): 6 Rollin (met) Roll Left to Right (QC): 6 Chair/[place] Xfer(QC): 6 Car Transfer (QC): 6 Does the Patient Walk: Yes Gait (FIM): 6 Gait distance (FIM): 3=150 ft Distance: 150' Walk 10 feet (QC): 6 Walk 10ft-Uneven Surface(QC): 6 Walk 50ft with 2 Turns (QC): 6 Walk 150 ft (QC): 6 Gait Level of Assist: 6 Gait Assistive Device: FWW, Cane Single Point Stairs (FIM): 5 # of Steps: 5 1 Step (curb) (QC): 5 4 Steps (QC): 5 12 Steps (QC): 5 Stairs Level Of Assist: 5 Picking up an Object (QC): 5 PT Plan Problem List Problem List: Activity Tolerance, Functional Strength, Safety, Balance, Gait, Transfer, Bed Mobility Treatment/Plan Treatment Plan: Continue Plan of Care Treatment Plan: Bed Mobility, Education, Functional Activity Isaiah, Functional Strength, Group Therapy, Gait, Safety, Therapeutic Exercise, Transfers Treatment Duration: Mar 28, 2018 Frequency: At least 5 of 7 days/Wk (IRF) Estimated Hrs Per Day: 1.5 hours per day Patient and/or Family Agrees t: Yes Safety Risks/Education Patient Education: Gait Training, Transfer Techniques, Steps, Correct Positioning, Safety Issues Teaching Recipient: Patient Teaching Methods: Demonstration, Discussion Response to Teaching: Reinforcement Needed Time/GCodes Time In: 0815 Time Out: 0900 Total Billed Treatment Time: 45 Total Billed Treatment 1 visit EX 15' GT 30' CHAN JOSE PT March 12, 2018 09:20
--- NOTE | 2018-03-12 09:48 | PM & R (SOAP) Progress Note ---
Subjective This was a face to face visit with the patient. Date Seen by Provider: March 12, 2018 Time Seen by Provider: 08:15 Subjective/Events-last exam Patient was seen in his room this AM Discussed case with RN re Trim Crew Supervisor recs re increasing Tube feed See orders SHAHZAD has informed me by text that Patient will be discharged tomorrow as [employer] has given no further days Objective Physician Exam Last Set of Vital Signs Vital Signs Date Time Temp Pulse Resp B/P (MAP) Pulse Ox O2 Delivery O2 Flow Rate FiO2 03/12/18 06:31 97 Trach Collar 6.00 28 03/12/18 06:00 97.3 111 19 107/69 (82) Capillary Refill : I&O Intake and Output 03/12/18 00:00 Intake Total 1620 ml Output Total 1300 ml Balance 320 ml Intake Oral 0 ml Tube Feeding 720 ml Other 900 ml Output Urine Total 1300 ml General: Alert, Oriented X3, Cooperative, No Acute Distress HEENT: Atraumatic, PERRLA, EOMI, Mucous Memb Moist/[place], Other (NPO) Neck: Other (Trach collar in place with 28% 02) Lungs: Clear to Auscultation, Other (s/p infusaport) Heart: Regular Rate Abdomen: Normal Bowel Sounds, Soft, No Tenderness, Other (s/p peg) Extremities: No Edema Neuro: Other (Generalized weakness Lower limbs > upper) Psych/Mental Status: Other (Flat affect appears depressed) Assessment/Plan Assessment and Plan Critical illness myopathy s/p resp failure NPO s/p Peg S/p Trach on 02 by Trach collar Tobaccoism currently abstaining Bilateral pleural effusions Left RIB pain possible mets Reactive depression on meds Underwt on Tube feeds Neutropenic fever resolved Plan Continue PT/OT/ST Increase Tube feeds-see orders-Monitor for any intolerance to increased weight Radiation therapy with Dr Calzada continues Probable discharge tomorrow will f/u with SHAHZAD re details F/U with [facility] DR Jacobo [facility] [place] and PCP Team CONference to be held later today-see report for full functional update and POC (1) Myopathy Status: Acute Co-Morbidities that are continuing to impact the rehab process: (include details ) RACHNA SANCHEZ MD March 12, 2018 09:48
[2018-03-12] MEDS: CATHETER FLUSH 10 ML SYR IV PRN ×3 (10:12→17:20)
--- NOTE | 2018-03-12 10:43 | Speech Therapy Daily Note ---
Speech Daily Progress Note Subjective Date Seen by Provider: March 12, 2018 Time Seen by Provider: 09:00 The patient was laying in bed upon entrance. The patient greeted the clinician appropriately and was agreeable to participation in the dysphagia treatment session. The patient reports his pain level is a "4" and locates it to the lower , left quadrant. The RN is present who stated the patient recently received pain medication. Dysphagia Exercise: Base of tongue retraction, pharyngeal contraction, laryngeal elevation, and adductor fold exercises were continued on this date. With moderate clinician cueing, the patient demonstrated good accuracy with five repetitions of each exercise performed. The patient did appear more fatigued following the completion of the exercises, however, displayed high participation throughout the session. Objective Dysphagia Exercises: Base of tongue retraction, pharyngeal contraction, laryngeal elevation, and adductor fold exercises were continued on this date. With moderate clinician cueing, the patient demonstrated good accuracy with five repetitions of each exercise performed. The patient did appear more fatigued following the completion of the exercises, however, displayed high participation throughout the session. - Ice Chips (dyed green): No signs/symptoms of aspiration were demonstrated with five of five trials of ice chips dyed green. The clinician, patient, and staff will continue to observe for tinged expectorations from the tracheostomy site. Assessment Assessment Current Status: Fair Progress Treatment Plan Continue Plan of Care Communication Comprehension: 6 (The patient wears glasses.) Expression: 6 (The patient complex information thoroughly to the clinician, however, due to aphonia would benefit from augmentative devices (dry erase board , [place] Speaking Valve).) Social Cognition Social Interaction: 6 (Anti-Depressant) Problem Solvin Memory: 7 Speech Short Term Goals Short Term Goals Short Term Goals 1. The patient will tolerate trials of the [place] Speaking Valve for a duration of two minutes. 2. The patient will tolerate trials of the least restrictive consistency without signs/symptoms of aspiration or laryngeal penetration. Time Frame-STG: One Week Speech Deliver Driver Goals Deliver Driver Goals 1. The patient will independently don his [place] Speaking Valve. 2. The patient will tolerate placement of the Passy-[place]rely Speaking Valve indefinitely with the exception of periods of sleep or high exertion. 3. The patient will tolerate a diet of the least restrictive material without signs/symptoms of aspiration or laryngeal penetration. Time Frame: Three Weeks Comprehension: 6 (MET; The patient wears glasses.) Expression: 6 (MET; The patient complex information thoroughly to the clinician , however, due to aphonia would benefit from augmentative devices (dry erase board, Pass[place] Speaking Valve).) Social Interaction: 6 (MET; Anti-Depressant) Problem Solvin (MET) Memory: 7 (MET) Speech-Plan Treatment Plan Speech Therapy Treatment Plan: Continue Plan of Care Continue skilled speech pathology to target improved swallowing safety. Treatment Duration: March 27, 2018 Frequency: 3 times per week Estimated Hrs Per Day: .5 hour per day Rehab Potential: Poor Safety Risks/Education Teaching Recipient: Patient Teaching Methods: Demonstration, Discussion Response to Teaching: Return Demonstration Education Topics Provided: Dysphagia Exercises Time Speech Therapy Time In: 09:00 Speech Therapy Time Out: 09:30 Total Billed Time: 30 Billed Treatment Time JAMES Douglas CHAPIN DIANE March 12, 2018 10:43
[2018-03-12] MEDS: KETOROLAC 60 MG/2 ML VIAL IV PRN (11:20)
--- NOTE | 2018-03-12 11:44 | Occupational Ther Daily Note ---
OT Current Status-Daily Note Subjective Pt seen in room, up in bed, agreeable to OT. Pt rated pain L abdomen 5/10 and asked for more pain meds during shower. Appearance Alert, cooperative, looks uncomfortable Mental Status/Objective Functional [place] Measure 0=Not Assessed/NA 4=Minimal Assistance 1=Total Assistance 5=Supervision or Setup 2=Maximal Assistance 6=Modified [place] 3=Moderate Assistance 7=Complete [place] ADL-Treatment PICC line covered with plastic for shower (saline lock taken out). O2 in place during tx, along with feeding tube. Pt walked with CGA, FWW to bathroom and got into shower with SBA, shower bench (with blankets on seat for extra height), using FWW and grab bars. He washed and dried all parts except back and hair, setup. He undressed and dressed in shower with setup, including slipper socks, using grab bar, SBA for standing to pull pants up. He walked back to bed with CGA, FWW and got into bed with SBA. He groomed with setup. He was too fatigued to do a toilet transfer and reported that he has not had a BM. He uses a urinal himself but needs help emptying it. He is dependant for eating, with tub feeding which he cannot manage himself. He is NPO. Functional [place] Measure 0=Not Assessed/NA 4=Minimal Assistance 1=Total Assistance 5=Supervision or Setup 2=Maximal Assistance 6=Modified [place] 3=Moderate Assistance 7=Complete IndependenceIRFPAI Quality Coding Scale 6 Independent with activity with or without an assistive device 5 Patient requires set up or clean up by helper. Patient completes activity by themselves 4 Supervision or touching assist (CGA). [place] provide cues , steadying assist 3 The helper provides less than half the effort to complete the activity 2 The helper provides more than half the effort to complete the activity 1 Dependent. The helper does all the effort to complete an activity 7 Patient refused to complete or attempt activity 9 The patient did not perform the activity before the current illness or injury 88 Not attempted due to Medical conditions or safety concerns Eating (FIM): 1 (NPO, with tub feeding that he cannot manage himself) Eating (QC): 1 Grooming (FIM): 5 (Setup for brushing teeth and hair, washing face and hands in shower) Oral Hygiene (QC): 5 Bathing (FIM): 5 (Shower bench, grab bars, hand held shower. Blankets on bench to raise height. Setup) Shower/Bathe Self (QC): 5 Upper Body (FIM): 5 (Setup) Upper Body Dressing (QC): 5 Lower Body Dressing (FIM): 5 (Setup, including socks. SBA to pull pants up.) Lower Body Dressing (QC): 4 On/Off Footwear (QC): 5 Toileting (FIM): 5 (Able to use urinal and manage clothing but needs help to empty it. setup) Toileting Hygiene (QC): 5 Shower Transfer(FIM): 5 Education OT Patient Education: Progress toward Goal/Update tx plan, Purpose of tx/ functional activities, Safety issues Teaching Recipient: Patient Teaching Methods: Discussion Response to Teaching: Verbalize Understanding OT Short Term Goals Short Term Goals Time Frame: March 14, 2018 Toileting(FIM): 5 Toilet/Commode Transfer(FIM): 5 Additional Short Term Goals: 1-Demonstrate ADL Tasks, 2-Verbalize Understanding , 3-ImproveStrength/Isaiah 1=Demonstrate adherence to instructed precautions during ADL tasks. 2=Patient will verbalize/demonstrate understanding of assistive devices/ modifications for ADL. 3=Patient will improve strength/tolerance for activity to enable patient to perform ADL's. OT Kettle Fry Cook Operator Goals Kettle Fry Cook Operator Goals Time Frame: Mar 28, 2018 Eating (FIM): 6 Eating (QC): 6 Groomin Oral Hygiene (QC): 6 Bathing(FIM): 6 Shower/Bathe Self (QC): 6 Upper Body Dressing(FIM): 6 Upper Body Dressing (QC): 6 Lower Body Dressing(FIM): 6 Lower Body Dressing (QC): 6 On/Off Footwear (QC): 6 Toileting(FIM): 6 Toileting Hygiene (QC): 6 Toilet/Commode Transfer(FIM): 6 Toilet/Commode Transfer (QC): 6 Tub Transfer(FIM): 6 (or shower) Shower Transfer(FIM): 6 (or tub) Comprehension(FIM): 6 (MET; The patient wears glasses.) Expression (FIM): 6 (MET; The patient complex information thoroughly to the clinician, however, due to aphonia would benefit from augmentative devices (dry erase board, Passy [place] Speaking Valve).) Social Interaction(FIM): 6 (MET; Anti-Depressant) Problem Solving(FIM): 7 (MET) Memory(FIM): 7 (MET) Additional Goals: 1-Demonstrate ADL Tasks, 2-Verbalize Understanding, 3- ImproveStrength/Isaiah 1=Demonstrate adherence to instructed precautions during ADL tasks. 2=Patient will verbalize/demonstrate understanding of assistive devices/ modifications for ADL. 3=Patient will improve strength/tolerance for activity to enable patient to perform ADL's. OT Education/Plan Problem List/Assessment Pt would benefit from skilled OT to increase his independence in basic self care to allow him to safely return home. Discharge Recommendations Plan/Recommendations: Continue POC Treatment Plan/Plan of Care Patient would benefit from OT for education, treatment and training to promote independence in ADL's, mobility, safety and/or upper extremity function for ADL' s. Plan of Care: ADL Retraining, Caregiver Training, Functional Mobility, Group Exercise/Act as Ind (education, exercise, activity tolerance, funct activities) , UE Funct Exercise/Act, UE Neuromus Re-Ed/Coord, OTHER (edema management) Treatment Duration: Mar 28, 2018 Frequency: Modified Program (IRF) Estimated Hrs Per Day: 1.5 hours per day Agreement: Yes Rehab Potential: Poor Time/GCodes Start Time: 10:30 Stop Time: 11:30 Total Time Billed (hr/min): 60 Billed Treatment Time visit, 60 minutes ADL KERWIN GARCIAS OT March 12, 2018 11:44
[2018-03-12] MEDS: fentaNYL PATCH 50 MCG (DURAGESIC) TD SCH (12:58)
[2018-03-12] MEDS ORDERED: FENTANYL PATCH REMOVAL TP SCH (13:00)
--- NOTE | 2018-03-12 14:49 | Therapy Group Daily Note ---
Therapy Daily Group Note Patient Education Topic Other List Below Other/Notes Pt was an active participant in OT/PT group. He introduced himself and contributed to education/discussion on spine anatomy/curves and posture, and tying it to prevention. He also did correlating UE, trunk and LE seated exercises. He tolerated being up for group but became diaphoretic at end of group. He walked to and from group with CGA, FWW and was left up in his bed, O2 and tube feedings in place, all needs met. Start Time: 13:00 Stop Time: 14:10 Total Billed Treatment Time: 70 Total Billed Treatment visit, 70 minutes group KERWIN GARCIAS OT March 12, 2018 14:49
--- NOTE | 2018-03-12 15:33 | Occupational Ther Daily Note ---
OT Current Status-Daily Note Subjective Pt seen in room, up in bed, agreeable to OT. Mental Status/Objective Functional [place] Measure 0=Not Assessed/NA 4=Minimal Assistance 1=Total Assistance 5=Supervision or Setup 2=Maximal Assistance 6=Modified [place] 3=Moderate Assistance 7=Complete [place] ADL-Treatment Tubigrip applied to bilat forearms. if tolerated, will add piece for upper arms tomorrow. Pt reported no problems and understood he could remove it if he wanted. Toileting scores from on the way to group this afternoon. Functional [place] Measure 0=Not Assessed/NA 4=Minimal Assistance 1=Total Assistance 5=Supervision or Setup 2=Maximal Assistance 6=Modified [place] 3=Moderate Assistance 7=Complete IndependenceIRFPAI Quality Coding Scale 6 Independent with activity with or without an assistive device 5 Patient requires set up or clean up by helper. Patient completes activity by themselves 4 Supervision or touching assist (CGA). [place] provide cues , steadying assist 3 The helper provides less than half the effort to complete the activity 2 The helper provides more than half the effort to complete the activity 1 Dependent. The helper does all the effort to complete an activity 7 Patient refused to complete or attempt activity 9 The patient did not perform the activity before the current illness or injury 88 Not attempted due to Medical conditions or safety concerns Toilet/Commode Transfer (FIM): 5 (SBA, BSC over toilet, grab bar, FWW) Toilet Transfer (QC): 4 (SBA) OT Short Term Goals Short Term Goals Time Frame: March 14, 2018 Toileting(FIM): 5 Toilet/Commode Transfer(FIM): 5 Additional Short Term Goals: 1-Demonstrate ADL Tasks, 2-Verbalize Understanding , 3-ImproveStrength/Isaiah 1=Demonstrate adherence to instructed precautions during ADL tasks. 2=Patient will verbalize/demonstrate understanding of assistive devices/ modifications for ADL. 3=Patient will improve strength/tolerance for activity to enable patient to perform ADL's. OT Animator Goals Animator Goals Time Frame: Mar 28, 2018 Eating (FIM): 6 Eating (QC): 6 Groomin Oral Hygiene (QC): 6 Bathing(FIM): 6 Shower/Bathe Self (QC): 6 Upper Body Dressing(FIM): 6 Upper Body Dressing (QC): 6 Lower Body Dressing(FIM): 6 Lower Body Dressing (QC): 6 On/Off Footwear (QC): 6 Toileting(FIM): 6 Toileting Hygiene (QC): 6 Toilet/Commode Transfer(FIM): 6 Toilet/Commode Transfer (QC): 6 Tub Transfer(FIM): 6 (or shower) Shower Transfer(FIM): 6 (or tub) Comprehension(FIM): 6 (MET; The patient wears glasses.) Expression (FIM): 6 (MET; The patient complex information thoroughly to the clinician, however, due to aphonia would benefit from augmentative devices (dry erase board, Passy [place] Speaking Valve).) Social Interaction(FIM): 6 (MET; Anti-Depressant) Problem Solving(FIM): 7 (MET) Memory(FIM): 7 (MET) Additional Goals: 1-Demonstrate ADL Tasks, 2-Verbalize Understanding, 3- ImproveStrength/Isaiah 1=Demonstrate adherence to instructed precautions during ADL tasks. 2=Patient will verbalize/demonstrate understanding of assistive devices/ modifications for ADL. 3=Patient will improve strength/tolerance for activity to enable patient to perform ADL's. OT Education/Plan Problem List/Assessment Pt would benefit from skilled OT to increase his independence in basic self care to allow him to safely return home. Discharge Recommendations Plan/Recommendations: Continue POC Treatment Plan/Plan of Care Patient would benefit from OT for education, treatment and training to promote independence in ADL's, mobility, safety and/or upper extremity function for ADL' s. Plan of Care: ADL Retraining, Caregiver Training, Functional Mobility, Group Exercise/Act as Ind (education, exercise, activity tolerance, funct activities) , UE Funct Exercise/Act, UE Neuromus Re-Ed/Coord, OTHER (edema management) Treatment Duration: Mar 28, 2018 Frequency: Modified Program (IRF) Estimated Hrs Per Day: 1.5 hours per day Agreement: Yes Rehab Potential: Poor Time/GCodes Start Time: 15:20 Stop Time: 15:25 Total Time Billed (hr/min): 5 Billed Treatment Time visit, 5 minutes ADL KERWIN GARCIAS OT March 12, 2018 15:32
[2018-03-12] MEDS ORDERED: LACTULOSE SYRUP 10GM/15ML (ENULOSE) 30ML UDC PEG PRN (16:15)
[2018-03-12 17:10] VITALS: BP 102/69
[2018-03-12] MEDS ORDERED: SCOP1PAT11 TOP (18:48)
[2018-03-12] MEDS ORDERED: FENT1PAT9 TD (18:48)
[2018-03-12] MEDS ORDERED: LORA1TAB PEG (18:48)
[2018-03-12] MEDS ORDERED: IPRA3AMP IH (18:48)
[2018-03-12] MEDS ORDERED: HYDR2TAB6 GT (18:48)
[2018-03-12] MEDS ORDERED: PRD10T PEG (18:48)
[2018-03-12] MEDS ORDERED: CLON0.5T3 PO (18:48)
[2018-03-12] MEDS ORDERED: SENN-20 PEG (18:48)
[2018-03-12] MEDS ORDERED: RIVA20TA PEG (18:48)
[2018-03-12] MEDS ORDERED: IPRA3AMP INH (18:48)
[2018-03-12] MEDS: POLYETHYLENE GLYCOL 17 GM (MIRALAX) PACK PO SCH (20:54)
[2018-03-12] MEDS: SERTRALINE 50 MG (ZOLOFT) TABLET PEG SCH (20:54)
[2018-03-12] MEDS: RIVAROXABAN 20 MG TABLET (XARELTO) PEG SCH (20:54)
[2018-03-12] MEDS: clonazePAM 0.5 MG (KlonoPIN) TAB PEG SCH (20:54)
[2018-03-13] MEDS: HYDROmorphone 1 MG/ML (DILAUDID) 1 ML SYRINGE IV PRN ×3 (02:27→08:37)
[2018-03-13] MEDS: RT-ALBUTEROL/IPRATROPIUM 3 ML (DUONEB) VIAL INH SCH ×2 (03:39→06:38)
[2018-03-13 05:20] VITALS: BP 116/67
[2018-03-13] MEDS: CATHETER FLUSH 10 ML SYR IV SCH (05:30)
[2018-03-13] MEDS: predniSONE 10 MG TAB PEG SCH (05:30)
--- NOTE | 2018-03-13 08:25 | PM & R (SOAP) Progress Note ---
Subjective This was a face to face visit with the patient. 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 Objective Physician Exam Last Set of Vital Signs Vital Signs Date Time Temp Pulse Resp B/P (MAP) Pulse Ox O2 Delivery O2 Flow Rate FiO2 03/13/18 06:38 95 Trach Collar 8.00 30 03/13/18 05:20 96.8 117 16 116/67 (83) Capillary Refill : I&O Intake and Output 03/13/18 00:00 Intake Total 2220 ml Output Total 775 ml Balance 1445 ml Intake Oral 0 ml Tube Feeding 720 ml Other 1500 ml Output Urine Total 775 ml General: Alert, Oriented X3, Cooperative, No Acute Distress HEENT: Atraumatic, PERRLA, EOMI, Mucous Memb Moist/[place], Other (NPO) Neck: Other (Trach collar in place with 28% 02) Lungs: Clear to Auscultation, Other (s/p infusaport) Heart: Regular Rate Abdomen: Normal Bowel Sounds, Soft, No Tenderness, Other (s/p peg) Extremities: No Edema Neuro: Other (Generalized weakness Lower limbs > upper) Psych/Mental Status: Other (Flat affect appears depressed) Assessment/Plan Assessment and Plan Discharge to SNU today Current meds reviewed F/U with Radiation Oncology and PCP or [facility] Physician See orders. (1) Myopathy Status: Acute Co-Morbidities that are continuing to impact the rehab process: (include details ) RACHNA SANCHEZ MD March 13, 2018 08:25
[2018-03-13] MEDS: DOCUSATE SODIUM 10 MG/ML 10 ML UDC (COLACE) PEG SCH (09:01)
[2018-03-13] MEDS: LORazepam 1 MG (ATIVAN) TAB PEG PRN (09:01)
[2018-03-13] MEDS: risperiDONE 0.25 MG (RisperDAL) TAB PEG SCH (09:01)
[2018-03-13] MEDS: SENNA W/DOCUSATE (SENOKOT S) TABLET PEG SCH (09:01)
--- NOTE | 2018-03-13 10:12 | Occ Therapy Progress Note ---
Therapy Progress Note [id number] Pt provided with Size H Tubigrip to apply compression to upper arms. Has Size E Tubigrip for lower arms. Pt said he wore them until about 3 am this morning and they did appear to decrease edema in forearms. He indicated that edema continued in upper arms so additional Tubigrip should address this. Pt verbalized understanding to put Tubigrip on forearms first, then upper arms. Not applied because pt was on his way to radiation therapy. KERWIN GARCIAS OT March 13, 2018 10:12
--- NOTE | 2018-03-13 10:18 | Therapy Team Discharge Summary ---
Therapy Discharge Summary Discharge Recommendations Date of Discharge March 13, 2018 at 09:40 Therapy D/C Recommendations: Home w/ Family Support, Occupational Therapy Home Care, Physical Therapy Home Care, Retirement (TCU/NH) Occupational Therapy Pt was seen for skilled OT to increase his independence in basic self care after dx and tx for metastatic lung cancer/pneumonia. He has a trach and a PEG tube and uses O2 over trach. On admission he was dependant with eating (tube feeding), setup for grooming, CGA/min assist bathing, dressing, toileting and toilet transfers. By discharge he continued to be dependant with eating, setup for grooming, bathing, upper body dressing and SBA for lower body dressing, toilet and shower transfers, setup toileting (urinal). He walks with FWW with CGA between ADLs. He also has edema bilat upper and lower arms and was provided Tubigrip for gentle compression. Pt discharged to SNF for continued care and OT. See tx plan for goals met. Decreased Activ Tolerance, Decreased UE Strength, Dependent Transfers, Impaired Funct Balance, Impaired Self-Care Skills PT Nursing Home Goals Nursing Home Goals PT Septic Cleaner Goals Time Frame: Mar 28, 2018 Transfers (B,C,W/C) (FIM): 6 Roll Left to Right (QC): 6 Sit to Lying (QC): 6 Lying-Sitting on Side/Bed(QC): 6 Sit to Stand (QC): 6 Chair/Wrq-ry-Xtadr Xfer(QC): 6 Car Transfer (QC): 6 Does the Patient Walk: Yes Gait (FIM): 6 Gait distance (FIM): 3=150 ft Distance: 150' Walk 10 feet (QC): 6 Walk 10ft-Uneven Surface(QC): 6 Walk 50ft with 2 Turns (QC): 6 Walk 150 ft (QC): 6 Gait Level of Assist: 6 Gait Assistive Device: FWW, Cane Single Point Stairs (FIM): 5 # of Steps: 5 1 Step (curb) (QC): 5 4 Steps (QC): 5 12 Steps (QC): 5 Stairs Level Of Assist: 5 Picking up an Object (QC): 5 OT Septic Cleaner Goals Nursing Home Goals Time Frame: Mar 28, 2018 Eating (FIM): 6 (not met 03-12-18) Eating (QC): 6 (not met 03-12-18) Oral Hygiene (QC): 6 (not met 03-12-18) Grooming(FIM): 6 (not met 03-12-18) Bathing(FIM): 6 (not met 03-12-18) Shower/Bathe Self (QC): 6 (not met 03-12-18) Upper Body Dressing(FIM): 6 (not met 03-12-18) Upper Body Dressing (QC): 6 (not met 03-12-18) Lower Body Dressing(FIM): 6 (not met 03-12-18) Lower Body Dressing (QC): 6 (not met 03-12-18) On/Off Footwear (QC): 6 (not met 03-12-18) Toileting(FIM): 6 (not met 03-12-18) Toileting Hygiene (QC): 6 (not met 03-12-18) Toilet/Commode Transfer(FIM): 6 (not met 03-12-18) Toilet/Commode Transfer (QC): 6 (not met 03-12-18) Tub Transfer(FIM): 6 (or shower) Shower Transfer(FIM): 6 (or tub, not met 03-12-18) Comprehension(FIM): 6 (MET; The patient wears glasses.) Expression (FIM): 6 (MET; The patient complex information thoroughly to the clinician, however, due to aphonia would benefit from augmentative devices (dry erase board, Pass[place] Speaking Valve).) Social Interaction(FIM): 6 (MET; Anti-Depressant) Problem Solving(FIM): 7 (MET) Memory(FIM): 7 (MET) Additional Goals: 1-Demonstrate ADL Tasks, 2-Verbalize Understanding, 3- ImproveStrength/Isaiah 1=Demonstrate adherence to instructed precautions during ADL tasks. 2=Patient will verbalize/demonstrate understanding of assistive devices/ modifications for ADL. 3=Patient will improve strength/tolerance for activity to enable patient to perform ADL's. Speech Nursing Home Goals Nursing Home Goals 1. The patient will independently don his Passy-[place] Speaking Valve. 2. The patient will tolerate placement of the Passy-[place] Speaking Valve indefinitely with the exception of periods of sleep or high exertion. 3. The patient will tolerate a diet of the least restrictive material without signs/symptoms of aspiration or laryngeal penetration. Time Frame: Three Weeks Comprehension: 6 (MET; The patient wears glasses.) Expression: 6 (MET; The patient complex information thoroughly to the clinician , however, due to aphonia would benefit from augmentative devices (dry erase board, Passy [place] Speaking Valve).) Social Interaction: 6 (MET; Anti-Depressant) Problem Solvin (MET) Memory: 7 (MET) KERWIN GARCIAS OT March 13, 2018 10:18
--- NOTE | 2018-03-13 10:42 | Therapy Team Discharge Summary ---
Therapy Discharge Summary Discharge Recommendations Date of Discharge March 13, 2018 at 09:40 Therapy D/C Recommendations: Home w/ Family Support, Occupational Therapy Home Care, Physical Therapy Home Care, Fdc (TCU/NH) Occupational Therapy Decreased Activ Tolerance, Decreased UE Strength, Dependent Transfers, Impaired Funct Balance, Impaired Self-Care Skills Speech-Language Pathology The patient was admitted to [facility] with a diagnosis of lung cancer with metastasis. Upon admission, the patient displayed aphonia and severe oropharyngeal dysphagia. Skilled speech pathology focused on oropharyngeal strengthening and Passy-[place] Speaking Valve Trials. Due to the patient's short stay, adequate time was not available to meet the goals placed by speech pathology. The patient was admitted and discharged with the highest comprehension, expressive, social interaction, memory, and problem solving FIM scores possible. The patient would benefit from skilled speech pathology post discharge. PT Dental Detail Representative Goals Jail Goals PT Dental Detail Representative Goals Time Frame: Mar 28, 2018 Transfers (B,C,W/C) (FIM): 6 Roll Left to Right (QC): 6 Sit to Lying (QC): 6 Lying-Sitting on Side/Bed(QC): 6 Sit to Stand (QC): 6 Chair/Cfo-hj-Rmuew Xfer(QC): 6 Car Transfer (QC): 6 Does the Patient Walk: Yes Gait (FIM): 6 Gait distance (FIM): 3=150 ft Distance: 150' Walk 10 feet (QC): 6 Walk 10ft-Uneven Surface(QC): 6 Walk 50ft with 2 Turns (QC): 6 Walk 150 ft (QC): 6 Gait Level of Assist: 6 Gait Assistive Device: FWW, Cane Single Point Stairs (FIM): 5 # of Steps: 5 1 Step (curb) (QC): 5 4 Steps (QC): 5 12 Steps (QC): 5 Stairs Level Of Assist: 5 Picking up an Object (QC): 5 OT Dental Detail Representative Goals Jail Goals Time Frame: Mar 28, 2018 Eating (FIM): 6 (not met 5-16-18) Eating (QC): 6 (not met 5-16-18) Oral Hygiene (QC): 6 (not met 5-16-18) Grooming(FIM): 6 (not met 5-16-18) Bathing(FIM): 6 (not met 5-16-18) Shower/Bathe Self (QC): 6 (not met 03-12-18) Upper Body Dressing(FIM): 6 (not met 03-12-18) Upper Body Dressing (QC): 6 (not met 03-12-18) Lower Body Dressing(FIM): 6 (not met 03-12-18) Lower Body Dressing (QC): 6 (not met 03-12-18) On/Off Footwear (QC): 6 (not met 03-12-18) Toileting(FIM): 6 (not met 03-12-18) Toileting Hygiene (QC): 6 (not met 03-12-18) Toilet/Commode Transfer(FIM): 6 (not met 03-12-18) Toilet/Commode Transfer (QC): 6 (not met 03-12-18) Tub Transfer(FIM): 6 (or shower) Shower Transfer(FIM): 6 (or tub, not met 03-12-18) Comprehension(FIM): 6 (MET; The patient wears glasses.) Expression (FIM): 6 (MET; The patient complex information thoroughly to the clinician, however, due to aphonia would benefit from augmentative devices (dry erase board, Passy [place] Speaking Valve).) Social Interaction(FIM): 6 (MET; Anti-Depressant) Problem Solving(FIM): 7 (MET) Memory(FIM): 7 (MET) Additional Goals: 1-Demonstrate ADL Tasks, 2-Verbalize Understanding, 3- ImproveStrength/Isaiah 1=Demonstrate adherence to instructed precautions during ADL tasks. 2=Patient will verbalize/demonstrate understanding of assistive devices/ modifications for ADL. 3=Patient will improve strength/tolerance for activity to enable patient to perform ADL's. Speech Jail Goals Dental Detail Representative Goals 1. The patient will independently don his Passy-Arely Speaking Valve. 2. The patient will tolerate placement of the Passy-A[place] Speaking Valve indefinitely with the exception of periods of sleep or high exertion. 3. The patient will tolerate a diet of the least restrictive material without signs/symptoms of aspiration or laryngeal penetration. Time Frame: Three Weeks Comprehension: 6 (MET; The patient wears glasses.) Expression: 6 (MET; The patient complex information thoroughly to the clinician , however, due to aphonia would benefit from augmentative devices (dry erase board, Passy [place] Speaking Valve).) Social Interaction: 6 (MET; Anti-Depressant) Problem Solvin (MET) Memory: 7 (MET) CHAPIN DIANE March 13, 2018 10:42
--- NOTE | 2018-03-13 11:22 | Therapy Team Discharge Summary ---
Therapy Discharge Summary Discharge Recommendations Date of Discharge March 13, 2018 at 09:40 Therapy D/C Recommendations: Home w/ Family Support, Occupational Therapy Home Care, Correction (TCU/NH) Physical Therapy this patient transferred to ARU post acute hospital stay with diagnosis of metastatic lung cancer/critical illness myopathy. Prior to this hospital stay, he had been indep with mobility, and able to work. Upon admission to this unit , he required min assist iwth transfers, ambulated short distances with FWW and able to go up/down a step with assist. His stay was short and treatment consisted of functional strengthening, mobility and progression of activity. His functional gains were limited due to medical status. He is min assist with transfers, ambulated 50 ft with FWW with min assist, went up/down a step with assist at discharge. He did not achieve goals set. He is to discharge to a LTC facility at this time. Occupational Therapy Decreased Activ Tolerance, Decreased UE Strength, Dependent Transfers, Impaired Funct Balance, Impaired Self-Care Skills PT Longterm Goals Cupola Operator Goals PT Longterm Goals Time Frame: Mar 28, 2018 Transfers (B,C,W/C) (FIM): 6 Roll Left to Right (QC): 6 Sit to Lying (QC): 6 Lying-Sitting on Side/Bed(QC): 6 Sit to Stand (QC): 6 Chair/Jsq-df-Axoyf Xfer(QC): 6 Car Transfer (QC): 6 Does the Patient Walk: Yes Gait (FIM): 6 Gait distance (FIM): 3=150 ft Distance: 150' Walk 10 feet (QC): 6 Walk 10ft-Uneven Surface(QC): 6 Walk 50ft with 2 Turns (QC): 6 Walk 150 ft (QC): 6 Gait Level of Assist: 6 Gait Assistive Device: FWW, Cane Single Point Stairs (FIM): 5 # of Steps: 5 1 Step (curb) (QC): 5 4 Steps (QC): 5 12 Steps (QC): 5 Stairs Level Of Assist: 5 Picking up an Object (QC): 5 OT Longterm Goals Cupola Operator Goals Time Frame: Mar 28, 2018 Eating (FIM): 6 (not met -16-18) Eating (QC): 6 (not met 16-18) Oral Hygiene (QC): 6 (not met 16-18) Grooming(FIM): 6 (not met 03-12-18) Bathing(FIM): 6 (not met 03-12-18) Shower/Bathe Self (QC): 6 (not met 03-12-18) Upper Body Dressing(FIM): 6 (not met 03-12-18) Upper Body Dressing (QC): 6 (not met 03-12-18) Lower Body Dressing(FIM): 6 (not met 03-12-18) Lower Body Dressing (QC): 6 (not met 03-12-18) On/Off Footwear (QC): 6 (not met 03-12-18) Toileting(FIM): 6 (not met 03-12-18) Toileting Hygiene (QC): 6 (not met 03-12-18) Toilet/Commode Transfer(FIM): 6 (not met 03-12-18) Toilet/Commode Transfer (QC): 6 (not met 03-12-18) Tub Transfer(FIM): 6 (or shower) Shower Transfer(FIM): 6 (or tub, not met 03-12-18) Comprehension(FIM): 6 (MET; The patient wears glasses.) Expression (FIM): 6 (MET; The patient complex information thoroughly to the clinician, however, due to aphonia would benefit from augmentative devices (dry erase board, Passy [place] Speaking Valve).) Social Interaction(FIM): 6 (MET; Anti-Depressant) Problem Solving(FIM): 7 (MET) Memory(FIM): 7 (MET) Additional Goals: 1-Demonstrate ADL Tasks, 2-Verbalize Understanding, 3- ImproveStrength/Isaiah 1=Demonstrate adherence to instructed precautions during ADL tasks. 2=Patient will verbalize/demonstrate understanding of assistive devices/ modifications for ADL. 3=Patient will improve strength/tolerance for activity to enable patient to perform ADL's. Speech Cupola Operator Goals Cupola Operator Goals 1. The patient will independently don his Passy-[place] Speaking Valve. 2. The patient will tolerate placement of the Passy-[place] Speaking Valve indefinitely with the exception of periods of sleep or high exertion. 3. The patient will tolerate a diet of the least restrictive material without signs/symptoms of aspiration or laryngeal penetration. Time Frame: Three Weeks Comprehension: 6 (MET; The patient wears glasses.) Expression: 6 (MET; The patient complex information thoroughly to the clinician , however, due to aphonia would benefit from augmentative devices (dry erase board, Passy [place] Speaking Valve).) Social Interaction: 6 (MET; Anti-Depressant) Problem Solvin (MET) Memory: 7 (MET) SIMIN FIGUEROA PT March 13, 2018 11:22
--- NOTE | 2018-03-14 16:08 | DISCHARGE SUMMARY ---
DATE OF SERVICE: 03/13/2018 HISTORY OF PRESENT ILLNESS: The patient is a 42-year-old male who was admitted to [facility] on 02/15/2018 via the ED after he was being cared for by his fiancee in [facility]. He had recently been diagnosed and treated at [facility] for lung cancer with encroachment into the trachea and the esophagus with metastases to the spine and probable also to the liver, also to the adrenal glands. The patient was found to be septic with respiratory failure. He was admitted to the ICU and followed by hospital service and asphalt coater. His trach was replaced. He is on O2 by trach collar and on tube feeds. He is n.p.o. His communication is impeded as he does not tolerate a Passy-Arely valve. He has generalized weakness for all this and was referred to inpatient rehabilitation with the approval of his commercial insurance. 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 PAST MEDICAL HISTORY: Lung cancer with metastases, status post trach status post peg n.p.o. 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 He has also had core biopsy of the supraclavicular mass. He has had an Infusaport placed, a former smoker, no alcohol. He quit smoking 01/24/2018. MEDICAL COURSE: He had difficulty tolerating therapy, he had limited endurance. He was making some progress, but his insurance arranged for him to go to a assisted unit in [facility], his hometown where he can have less intensive therapy and ongoing care. He was started on radiation therapy while here and he may continue with that when in [place] with transportation to be arranged. He had abdominal pain and left rib pain. During his stay, he was seen by Dr. Wall hospitalist and Dr. Cabrera general surgery, it was felt to be a combination of metastases as well as constipation. Bowel program was adjusted and Duragesic patch was begun with improved pain control. He continued on medications for anxiety. He continued on tube feeds and O2 bleed in trach collar. He required frequent suctioning with respiratory therapy. He was afebrile during his stay. His pulse was 117 on 03/13/2018, respirations 16, blood pressure 116/67, O2 sat 95% with 6 liters of O2 by trach collar. Glucometer readings from 03/06/2018 to 03/07/2018 were 112 to 124. Glucometer testing was discontinued. The patient did have x-ray of the ribs, which were noncontributory for rib fracture noted with left basal atelectasis and/or pneumonitis and left pleural effusion. Abdominal x-ray on 03/07/2018 showed suspected pneumoperitoneum. A CT scan was done in follow up which revealed increased left adrenal gland size. Gastrostomy tube in position, very mild generalized anasarca. No free air and bilateral pleural effusions, right greater than left, but slightly diminished since prior study. REHABILITATION COURSE: Due to the brevity of his stay, his limited endurance, goals were somewhat limited. His fiance and other family members worked and they did not feel they could care for him at home at this time and thus a assisted placement has been arranged as per above. OT NOTES: Upon admission, he was dependent with eating, tube feeding, set up for grooming, contact guard to min assist for bathing, dressing, toileting and toilet transfers. By discharge, he continued to be dependent with eating, set up for grooming, bathing, upper body dressing and standby assist for lower body dressing, toilet and shower transfers. He ambulates with a front wheel walker with contact guard between his ADLs. He also had bilateral arm edema and was provided with Tubigrip for gentle compression but still had significant edema. SPEECH THERAPY NOTES: Upon admission, the patient displayed aphonia and severe oropharyngeal dysphagia. Due to the patient's short stay, adequate time was not available to meet the goals placed by speech pathology. Comprehension, expression, social interaction, problem solving and memory were intact. PHYSICAL THERAPY NOTES: Upon admission, the patient required min assist with transfers. Ambulate short distances with a front wheel walker. His stay was shortened. Treatment consisted of functional strengthening, mobility and progression of activity. His functional gains were limited due to medical status. Upon discharge, he is min assist with transfers, can ambulate 50 feet with a front wheel walker with min assist. DISCHARGE INSTRUCTIONS: He will have followup with the custodial physician or his PCP as well as his radiation oncologist. He will have ongoing PT, OT and radiation therapy. He continues n.p.o. and on tube feeds and with O2 bleed in by trach collar. DISCHARGE MEDICATIONS: Fentanyl patch 50 mcg topically every 3 days, Dilaudid 1 mg per tube q.4 hours p.r.n. severe pain. Albuterol treatments, DuoNeb treatments 3 mL q.4 hours and q.2 hours p.r.n. shortness of breath. Prednisone 10 mg per PEG daily, Xarelto 20 mg per PEG each day at bedtime, scopolamine patch 1.5 mg topically every 3 days, Senokot-S 1 tablet per PEG b.i.d., clonazepam 0.5 mg per PEG each day at bedtime, lorazepam 0.5 to 1 mg per PEG q.8 hours p.r.n. anxiety. Simethicone 80 mg per PEG q.6 hours p.r.n. gas. DISCHARGE DIAGNOSES: 1. Rehabilitation critical illness myopathy. 2. Acute on chronic respiratory failure with hypoxia. 3. Primary lung cancer. 4. 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 5. 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 6. Metastasis to supraclavicular node. 7. Bilateral pleural effusion. 8. Metastasis to left adrenal gland. 9. Metastasis to the bone. 10. Metastasis to the liver. 11. Dysphagia. 12. Paralysis vocal cord. 13. Reactive depression. 14. Constipation due to drugs. 15. Smoker. CONDITION AT DISCHARGE: Slightly improved and stable. PROGNOSIS: Rehab prognosis appears guarded at this point, we will defer to his medical oncologist and radiation oncologist. Job ID: [id number] DocumentID: [id number] Dictated Date: 03/13/2018 21:09:02 Inside Sales Account Manager Date: 03/14/2018 16:07:33 Dictated By: RACHNA SANCHEZ MD
== END 2018-03-13 09:40 | DRG 92 ==
PROVIDERS: ADMIT Physical Medicine & Rehabilitation; ATTEND Physical Medicine & Rehabilitation
DX: G72.81 Critical illness myopathy (principal); C34.80 Malignant neoplasm of overlapping sites of unspecified bronchus and lung; C78.1 Secondary malignant neoplasm of mediastinum; C79.89 Secondary malignant neoplasm of other specified sites; C77.0 Secondary and unspecified malignant neoplasm of lymph nodes of head, face and neck; J90 Pleural effusion, not elsewhere classified; C79.72 Secondary malignant neoplasm of left adrenal gland; C79.51 Secondary malignant neoplasm of bone; C78.7 Secondary malignant neoplasm of liver and intrahepatic bile duct; R13.10 Dysphagia, unspecified; J38.00 Paralysis of vocal cords and larynx, unspecified; F32.9 Major depressive disorder, single episode, unspecified; K59.03 Drug induced constipation; F17.210 Nicotine dependence, cigarettes, uncomplicated
CPT/HCPCS: 71100; 74019; 74177; 77290; 77295; 77300; 77334; 77417; 82962; 94640; 94760; 94799

== ENCOUNTER 2018-03-14 10:44 | Outpatient (RCR) | payer OTHER ==
[~2018-03-14 10:44] MED LIST changes: +CLON0.5T13 PEG; +CLON0.5T13 PO; -CLON0.5T3 PEG; -CLON0.5T3 PO; +DOCU50LI PEG; +FENT1PAT9 TD; +HYDR15SO8 PEG; +HYDR2TAB6 GT; +IPRA3AMP31 IH; +IPRA3AMP31 INH; +PRD10T PEG; +PRED10TA22 PEG; +RISP0.253 PO; +RIVA20TA PEG; +SCOP1PAT11 TOP; +SENN-20 PEG; +SERT50TA9 PO; +SIME80TA16 PEG; +TRAM50TA2 PO
[2018-03-17] MEDS ORDERED: IPRA3AMP31 IH (11:04)
[2018-03-17] MEDS ORDERED: CLON0.5T13 PEG (11:04)
[2018-03-17] MEDS ORDERED: RIVA20TA PEG (11:04)
[2018-03-17] MEDS ORDERED: SCOP1PAT11 TD (11:04)
[2018-03-17] MEDS ORDERED: PRD10T PEG (11:04)
[2018-03-17] MEDS ORDERED: MORP100S3 PEG (11:04)
[2018-03-17] MEDS ORDERED: HYDR2TAB6 PEG (11:04)
[2018-03-17] MEDS ORDERED: SENN-109 PEG (11:04)
[2018-03-17] MEDS ORDERED: LORA1TAB PEG (11:04)
[2018-03-17] MEDS ORDERED: FENT1PAT59 TD (11:04)
== END 2018-03-21 | disposition home or self-care (01) ==
LOC: ONC 10:44
PROVIDERS: ATTEND Internal Medicine Hematology & Oncology
DX: Z51.0 Encounter for antineoplastic radiation therapy (principal); C38.3 Malignant neoplasm of mediastinum, part unspecified; Z93.0 Tracheostomy status; Z93.1 Gastrostomy status; Z87.891 Personal history of nicotine dependence
CPT/HCPCS: 77336

== ENCOUNTER 2018-03-15 19:18 | Inpatient (IN) | payer OTHER ==
[~2018-03-15] VITALS: Ht 198.1 cm; Wt 77.4 kg
[~2018-03-15 19:18] MED LIST changes: -CLON0.5T13 PEG; -CLON0.5T13 PO; +CLON0.5T3 PEG; +CLON0.5T3 PO; +IPRA3AMP IH; +IPRA3AMP INH; -IPRA3AMP31 IH; -IPRA3AMP31 INH
[2018-03-15] MEDS ORDERED: RT-ALBUTEROL SULF 2.5 MG/3 ML PRE-MIX VIAL INH STA (19:30)
[2018-03-15] MEDS ORDERED: NS IV 1000 ML 1,000 ML IV SCH (19:30)
[2018-03-15] MEDS ORDERED: CEFEPIME INJECTION 2,000 MG in NS (IVPB) 50 ML IV ONE (19:30)
[2018-03-15] MEDS ORDERED: ONDANSETRON 4 MG/2 ML (SDV) Z0FRAN IVP PRN (19:30)
[2018-03-15] MEDS ORDERED: RT-ALBUTEROL/IPRATROPIUM 3 ML (DUONEB) VIAL INH ONE (19:30)
[2018-03-15] MEDS ORDERED: morphine INJ 10 MG/ML 1ML (SYR OR VIAL) IV STA (19:40)
--- NOTE | 2018-03-15 19:40 | ED Respiratory ---
General Stated Complaint: RESP DISTRESS Source: patient Exam Limitations: no limitations History of Present Illness Date Seen by Provider: March 15, 2018 Time Seen by Provider: 19:25 Initial Comments The patient presents to the ER by BLS ambulance from [place], [place]. He is having shortness of breath at the residential he lived in. As well as left- sided chest pain. The chest pain does not radiate and he is having some nausea but no fever sweats or chills. He is having no problems with diarrhea or constipation. He says this all started today. He was given a couple breathing treatments as well as 2 mg of Dilaudid area and he says the pain did not improve with the Dilaudid nor did the breathing treatments help him very much. 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 He is under radiation therapy only presently with Dr. Naranjo at the cancer center in [place], [place]. He has been having a productive cough. He has a tracheostomy as well as a left-sided Port-A-Cath. He has some records with him from the residential indicate he had neutropenic fever and a chest x-ray showing pneumonia treated inpatient about 9 or 10 days ago and then released. He was on a ventilator at that time. The patient is empathetic that he does not want to be on a ventilator again even if he needs it. He reports that they are not changing his cannula for his tracheostomy or suctioning him with deep suctioning when he needs it where he lives. Allergies and Home Medications Allergies Coded Allergies: No Known Drug Allergies (Unverified , 03/30/16) Home Medications Clonazepam 0.5 Mg Tablet, 0.5 MG PO HS Prescribed by: RACHNA SANCHEZ on 03/12/181847 Fentanyl 1 Each Patch.td72, 50 MCG TD Q72H Prescribed by: RACHNA SANCHEZ on 03/12/181847 Hydromorphone HCl 2 Mg Tablet, 1 MG GT Q4H PRN for PAIN-SEVERE Prescribed by: RACHNA SANCHEZ on 03/12/181847 Ipratropium/Albuterol Sulfate 3 Ml Ampul.neb, 3 ML INH RTQ4HR Prescribed by: RACHNA SANCHEZ on 03/12/181847 Ipratropium/Albuterol Sulfate 3 Ml Ampul.neb, 3 ML IH RTQ2H PRN for SOA Prescribed by: RACHNA SANCHEZ on 03/12/181847 Lorazepam 1 Mg Tablet, 0.5-1 MG PEG Q8H PRN for ANXIETY MAY ALSO BE TAKEN FOR NAUSEA/VOMITING Prescribed by: RACHNA SANCHEZ on 03/12/181847 Prednisone 10 Mg Tab, 10 MG PEG DAILY@0700 Prescribed by: RACHNA SANCHEZ on 03/12/181847 Rivaroxaban 20 Mg Tablet, 20 MG PEG HS Prescribed by: RACHNA SANCHEZ on 03/12/181847 Scopolamine 1 Each Patch.td72, 1.5 MG TOP Q72H Prescribed by: RACHNA SANCHEZ on 03/12/181847 Sennosides/Docusate Sodium 1 Each Tablet, 1 EA PEG BID Prescribed by: RACHNA SANCHEZ on 03/12/181847 Simethicone 80 Mg Tab.chew, 80 MG PO Q6H PRN for GAS, (Reported) Patient Home Medication List Home Medication List Reviewed: Yes Review of Systems Constitutional: No chills, No fever EENTM: No hearing loss, No ear pain Respiratory: cough, phlegm, short of breath; No stridor; wheezing Cardiovascular: see HPI, chest pain; No Hx of Intervention, No palpitations, No vascular heart diseas Gastrointestinal: No abdominal pain, No constipation, No diarrhea; nausea; No vomiting Genitourinary: No discharge, No dysuria Musculoskeletal: No back pain, No joint pain Past Xqpnuwb-Ozjkhj-Nomnhl Hx Patient Social History Alcohol Use: Denies Use Recreational Drug Use: No Smoking Status: Former Smoker Type Used: Cigarettes Former Smoker, Quit: Jan 24, 2018 Recent Hopitalizations: Yes ([facility] was discharged 02/14/18) Immunizations Up To Date Tetanus Booster (TDap): Unknown PED Vaccines UTD: No Seasonal Allergies Seasonal Allergies: No Past Medical History Surgeries: Yes (TRACH,INFUSAPORT,FEEDING TUBE, LUNG BX) Tracheostomy Respiratory: No Currently Using CPAP: No Currently Using BIPAP: No Cardiac: No Neurological: No Reproductive Disorders: No Sexually Transmitted Disease: No Genitourinary: No Gastrointestinal: No Musculoskeletal: No Endocrine: No HEENT: Yes (throat in mass--pushed on vocal cords) Cancer: Yes (PRIMARY LUNG METS TO ESOPHAGUS, TRACHEA, ADRENAL GLANDS) Lung, Esophageal Did You Recieve Any Treatments: Yes What Type of Treatment Did You: Chemotherapy, Radiation, Surgical Intervention Psychosocial: Yes Anxiety, Depression Integumentary: No Blood Disorders: No Family Medical History LEUKEMIA 19 FATHER No Pertinent Family Hx, Diabetes, Hypertension Physical Exam Vital Signs Vital Signs - First Documented 03/15/18 03/15/18 19:20 19:45 Temp 98.5 Pulse 117 Resp 28 B/P (MAP) 145/97 (113) Pulse Ox 87 O2 Delivery Trach Collar O2 Flow Rate 6.00 FiO2 100 Capillary Refill : General Appearance: WD/WN, moderate distress Eyes: Bilateral Eye Normal Inspection, Bilateral Eye PERRL, Bilateral Eye EOMI HEENT: PERRL/EOMI, normal ENT inspection, TMs normal, pharynx normal (oral mucosa is dry) Neck: non-tender, supple, normal inspection Respiratory: respiratory distress (moderate), accessory muscle use (moderate), rhonchi, wheezing (bilaterally), other (left lower chest at the costochondral margin is tender to palpation.) Cardiovascular: normal peripheral pulses, regular rate, rhythm Gastrointestinal: normal bowel sounds, guarding, tenderness (left upper quadrant) Extremities: non-tender, normal inspection, no pedal edema, no calf tenderness , normal capillary refill Neurologic/Psychiatric: alert, normal mood/affect, oriented x 3 Skin: normal color, warm/dry Focused Exam Lactate Level 03/15/18 19:40: Lactic Acid Level 1.40 Lactic Acid Level Laboratory Tests Test 03/15/18 19:40 Lactic Acid Level 1.40 MMOL/L (0.50-2.00) Procedures/Interventions Date of ETT Placement: Feb 18, 2018 Time of ETT Placement: 624 Suture Size: 4-0 Progress/Results/Core Measures Suspected Sepsis SIRS Temperature: Pulse: Respiratory Rate: Laboratory Tests 03/15/18 19:40: White Blood Count 27.8H Blood Pressure / Mean: 03/15/18 19:40: Lactic Acid Level 1.40 Laboratory Tests 03/15/18 19:40: Creatinine 0.58L, INR Comment 1.1, Platelet Count 293, Total Bilirubin 0.5 Results/Orders Lab Results Laboratory Tests Test 03/15/18 19:28 03/15/18 19:40 03/15/18 20:00 Range/Units Urine Color YELLOW Urine Clarity VERY CLOUDY H Urine pH 8 5-9 Urine Specific [place] 1.015 L 1.016-1.022 Urine Protein 2+ H NEGATIVE Urine Glucose (UA) NEGATIVE NEGATIVE Urine Ketones NEGATIVE NEGATIVE Urine Nitrite NEGATIVE NEGATIVE Urine Bilirubin NEGATIVE NEGATIVE Urine Urobilinogen 4 H NORMAL MG/DL Urine Leukocyte Esterase 2+ H NEGATIVE Urine RBC (Auto) 3+ H NEGATIVE Urine RBC 10-25 H /HPF Urine WBC 50-100 H /HPF Urine Crystals PRESENT H /LPF Urine Calcium Oxalate Crystals FEW H /LPF Urine Bacteria LARGE H /HPF Urine Casts NONE /LPF Urine Mucus NEGATIVE /LPF Urine Culture Indicated YES White Blood Count 27.8 H 4.3-11.0 10^3/uL Red Blood Count 3.26 L 4.35-5.85 10^6/uL Hemoglobin 10.0 L 13.3-17.7 G/DL Hematocrit 30 L 40-54 % Mean Corpuscular Volume 91 80-99 FL Mean Corpuscular Hemoglobin 31 25-34 PG Mean Corpuscular Hemoglobin Concent 34 32-36 G/DL Red Cell Distribution Width 17.4 H 10.0-14.5 % Platelet Count 293 130-400 10^3/uL Mean Platelet Volume 9.0 7.4-10.4 FL Neutrophils (%) (Auto) 96 H 42-75 % Lymphocytes (%) (Auto) 1 L 12-44 % Monocytes (%) (Auto) 3 0-12 % Eosinophils (%) (Auto) 0 0-10 % Basophils (%) (Auto) 0 0-10 % Neutrophils # (Auto) 26.8 H 1.8-7.8 X 10^3 Lymphocytes # (Auto) 0.2 L 1.0-4.0 X 10^3 Monocytes # (Auto) 0.8 0.0-1.0 X 10^3 Eosinophils # (Auto) 0.0 0.0-0.3 10^3/uL Basophils # (Auto) 0.1 0.0-0.1 10^3/uL Neutrophils % (Manual) 83 % Lymphocytes % (Manual) 0 % Monocytes % (Manual) 3 % Eosinophils % (Manual) 0 % Basophils % (Manual) 0 % Band Neutrophils 14 % Blood Morphology Comment NORMAL Prothrombin Time 14.5 12.2-14.7 SEC INR Comment 1.1 0.8-1.4 Activated Partial Thromboplast Time 30 24-35 SEC Sodium Level 129 L 135-145 MMOL/L Potassium Level 4.4 3.6-5.0 MMOL/L Chloride Level 91 L 98-107 MMOL/L Carbon Dioxide Level 23 21-32 MMOL/L Anion Gap 15 H 5-14 MMOL/L Blood Urea Nitrogen 17 7-18 MG/DL Creatinine 0.58 L 0.60-1.30 MG/DL Estimat Glomerular Filtration Rate > 60 BUN/Creatinine Ratio 29 Glucose Level 116 H 70-105 MG/DL Lactic Acid Level 1.40 0.50-2.00 MMOL/L Calcium Level 8.6 8.5-10.1 MG/DL Magnesium Level 1.5 L 1.8-2.4 MG/DL Total Bilirubin 0.5 0.1-1.0 MG/DL Aspartate Amino Transf (AST/SGOT) 22 5-34 U/L Alanine Aminotransferase (ALT/SGPT) 25 0-55 U/L Alkaline Phosphatase 177 H 40-136 U/L Myoglobin 181.3 H 10.0-92.0 NG/ML Troponin I < 0.30 <0.30 NG/ML Total Protein 5.8 L 6.4-8.2 GM/DL Albumin 2.8 L 3.2-4.5 GM/DL Blood Gas Puncture Site RIGHT RADIAL Blood Gas Patient Temperature 98.5 Arterial Blood pH 7.48 H 7.37-7.43 Arterial Blood Partial Pressure CO2 37 35-45 MMHG Arterial Blood Partial Pressure O2 130 H 79-93 MMHG Arterial Blood HCO3 28 H 23-27 MMOL/L Arterial Blood Total CO2 28.9 21.0-31.0 MMOL/L Arterial Blood Oxygen Saturation 100 94-100 % Arterial Blood Base Excess 4.4 H -2.5-2.5 MMOL/L Harrison Test YES-POS Blood Gas Ventilator Setting NO Blood Gas Inspired Oxygen 100 My Orders Orders - JAYLEN GOLD Ct Angio Chest W (03/15/18:) Cbc With Automated Diff (03/15/18) Comprehensive Metabolic Panel (03/15/18) Lactic Acid Analyzer (03/15/18) Blood Culture (03/15/18) Sputum Culture (03/15/18) Ua Culture If Indicated (03/15/18) Protime With Inr (03/15/18) Partial Thromboplastin Time (03/15/18:30) Chest 1 View, Ap/Pa Only (03/15/18:) O2 (03/15/18:30) Ondansetron Injection (Zofran Injectio (03/15/18:30) Saline Lock/Iv-Start (03/15/18:30) Ekg Tracing (03/15/18) Troponin I (03/15/18:) Cefepime Injection (Maxipime Injection) (03/15/18:30) Vital Signs Adult Sepsis Patie Q1H (03/15/18:30) Remove Rings In Anticipation O (03/15/18:) Saline Lock/Iv-Start (03/15/18) Ns Iv 1000 Ml (Sodium Chloride 0.9%) (03/15/18:) Albuterol Pre-Mix Nebs (Rt) (Proventil (03/15/18:) Albuterol/Ipra Inhalation Soln (Duoneb I (03/15/18:30) Svn Small Volume Nebulizer (03/15/18:30) Aspirin Chewable Tablet (Baby Aspirin Ch (03/15/18 19:45) Magnesium (03/15/18 19:40) Myoglobin Serum (03/15/18 19:40) O2 (03/15/18:40) Nitroglycerin 0.4 Mg Btl 25's (Nitrostat (03/15/18:45) Morphine Injection (Morphine Injection (03/15/18 19:40) Arterial Blood Gas (03/15/18 19:40) Iohexol Injection (Omnipaque 350 Mg/Ml 1 (03/15/18 20:00) Ns (Ivpb) (Sodium Chloride 0.9% Ivpb Bag (03/15/18 20:00) Manual Differential (03/15/18:40) Urine Culture (03/15/18 19:28) Arterial Blood Draw (03/15/18 20:00) Magnesium 1 Gm/100 Ml Ivpb (Magnesium Trinh (03/15/18 21:15) Medications Given in ED Current Medications Medications Dose Ordered Sig/Teofilo Route Start Time Stop Time Status Last Admin Dose Admin Albuterol/ Ipratropium 3 ml ONCE ONCE INH 03/15/18 19:30 03/15/18 19:34 DC 03/15/18 19:45 3 ML Aspirin 324 mg ONCE ONCE GT 03/15/18 19:45 03/15/18 19:46 DC 03/15/18 19:49 324 MG Cefepime HCl 2000 mg/Sodium Chloride 50 ml @ 100 mls/hr ONCE ONCE IV 03/15/18 19:30 03/15/18 19:59 DC 03/15/18 20:11 100 MLS/HR Magnesium Sulfate/ Dextrose 100 ml @ 100 mls/hr ONCE ONCE IV 03/15/18 21:15 03/15/18 22:14 DC 03/15/18 21:27 100 MLS/HR Nitroglycerin 0.4 mg UD PRN SL 03/15/18 19:45 03/15/18 23:40 DC 03/15/18 20:16 0.4 MG Vital Signs/I&O 03/15/18 03/15/18 03/15/18 03/15/18 19:20 19:24 19:45 21:00 Temp 98.5 Pulse 117 Resp 28 B/P (MAP) 145/97 (113) Pulse Ox 87 86 99 96 O2 Delivery Trach Collar Trach Collar Trach Collar Trach Collar O2 Flow Rate 6.00 FiO2 100 70 03/16/18 00:00 Intake Total 50 ml Balance 50 ml Capillary Refill : Progress Note #1: Time: 19:47 Progress Note On his discharge note from a couple days ago he was noted to have similar left lower rib pain and left upper abdominal pain. He was sent to [facility] in the [place] at that time he was consulted with internal medicine and general surgery and they felt that it might of been due to his constipation due to his Duragesic patch so dosing adjustments were made and he was put on a bowel program. He was still requiring frequent suctioning by respiratory therapy. 2 days ago x-ray showed no rib fractures but some left basal atelectasis and/or pneumonitis and left pleural effusion. CT of the abdomen pelvis about a week ago was unremarkable for acute pathology. He is on Xarelto thereby making a pulmonary embolism less likely however still possibility he could have something in his chest so a CT angiogram has been ordered. We have done some deep suctioning which has helped him as well as started him on some breathing treatments and his sats are now 100% with a heart rate in the 113. Blood pressure is good presently. We'll continue an hour-long albuterol breathing treatment get an ABG. It looks like he is much more relaxed now but is still says he is having some pain. They'll crush up some aspirin for him and have an unrevealing EKG so follow-up troponin and given some morphine 8 mg see if that doesn't help his pain. Echocardiogram from January 2018 demonstrates normal left ventricle her size and function with EF 65-70%. Grade 1 diastolic dysfunction. Moderate size pericardial effusion noted without any signs of cardiac tamponade. Estimated pulmonary artery pressure of 25 mmHg. Progress Note #2: Time: 20:26 Progress Note The patient is pain is under much better control after 2 doses of the nitroglycerin and 8 of morphine. His blood pressure is now 106 systolic so her to stop that continue his IV fluids which he got about 500 of the first liter. He is no longer struggling to breathe has sats are 100% and is finishing up his albuterol. His wheezing is gone and he started a little bit of rhonchus sounds. He's had multiple deep suctioning by RT. ECG Initial ECG Impression Date: March 15, 2018 Initial ECG Impression Time: 19:43 Initial ECG Rate: 113 Initial ECG Rhythm: Normal Sinus Initial ECG Intervals: Normal Initial ECG Impression: Normal, Nonspecific Changes Initial ECG Comparisson: Unchanged Comment Low voltage but no ST elevation or depression. No signs of irritable heart. Diagnostic Imaging Diagonstic Imaging: Xray Plain Films/CT/US/NM/MRI: chest (1v) Comments NAME: HARRISDAVID MED REC#: [id number] PHYSICIAN: JAYLEN GOLD MD CC: KELLIE WATSON; JAYLEN GOLD Page 1 of 1 RADIOLOGY REPORT VIA [facility]. [place], [place] CC: KELLIE WATSON; JAYLEN GOLD Page 1 of 1 RADIOLOGY REPORT NAME: DAVID HARRIS MED REC#: [id number] PT STATUS: REG ER : 1975 PHYSICIAN: JAYLEN GOLD MD ADMIT DATE: 03/15/18/ER Signed Date of Exam: 03/15/18 CHEST 1 VIEW, AP/PA ONLY INDICATION: Respiratory distress. COMPARISON: 03/06/2018. EXAMINATION: Single view of the chest was obtained. FINDINGS: New bilateral hilar infiltrates with trace effusions. The heart is prominent. There is no pneumothorax. Tracheostomy tube and central venous catheter are stable. IMPRESSION: New hilar infiltrates with small effusions. This may represent pneumonia and/or possibly CHF. Dictated by: Dictated on workstation # [id number] Dict: 03/15/182058 Trans: 03/15/182110 Interpreted by: KELLIE WATSON Electronically signed by: KELLIE WATSON 03/15/182110 Reviewed: Reviewed by Me Diagonstic Imaging: CT Plain Films/CT/US/NM/MRI: chest (angio) Reviewed: Reviewed by Me Departure Impression Primary Impression: Pneumonia Qualified Codes: J18.9 - Pneumonia, unspecified organism Additional Impressions: UTI (urinary tract infection) Qualified Codes: N30.01 - Acute cystitis with hematuria Sepsis Qualified Codes: A41.9 - Sepsis, unspecified organism Hypomagnesemia History of lung cancer Disposition: ADMITTED INPATIENT Condition: Improved Admissions Decision to Admit Reason: Admit from ER (General) Decision to Admit/Date: March 15, 2018 Time/Decision to Admit Time: 21:43 Departure-Patient Inst. Referrals: NO,LOCAL PHYSICIAN (PCP/Family) Primary Care Physician Copy Copies To 1: HUBERT GUTIÉRREZ TITUS J March 15, 2018 19:40
[2018-03-15] MEDS ORDERED: ASPIRIN 81 MG CHEW (CHILDREN'S ASA) GT ONE (19:45)
[2018-03-15] MEDS: NITROGLYCERIN 0.4 MG SL TABS BTL 25'S SL PRN ×2 (19:49→20:16)
[2018-03-15 19:57] LABS: BASOPHILS # (AUTO) 0.1 10^3/uL (0.0-0.1); BASOPHILS % (AUTO) 0 % (0-10); EOSINOPHILS % (AUTO) 0 % (0-10); HEMATOCRIT 30 % (40-54); LYMPHOCYTES # (AUTO) 0.2 X 10^3 (1.0-4.0); LYMPHOCYTES % (AUTO) 1 % (12-44); MEAN CORPUSCULAR HEMOGLOBIN 31 PG (25-34); MEAN CORPUSCULAR HGB CONC 34 G/DL (32-36); MEAN CORPUSCULAR VOLUME 91 FL (80-99); MONOCYTES # (AUTO) 0.8 X 10^3 (0.0-1.0); MONOCYTES % (AUTO) 3 % (0-12); NEUTROPHILS # (AUTO) 26.8 X 10^3 (1.8-7.8); NEUTROPHILS % (AUTO) 96 % (42-75); PLATELET COUNT 293 10^3/uL (130-400); RED BLOOD COUNT 3.26 10^6/uL (4.35-5.85); RED CELL DISTRIBUTION WIDTH 17.4 % (10.0-14.5); WHITE BLOOD COUNT 27.8 10^3/uL (4.3-11.0)
[2018-03-15] MEDS ORDERED: NS 100 ML (IVPB) BAG IV ONE (20:00)
[2018-03-15] MEDS ORDERED: IOHEXOL 350 MG/ML 150 ML (OMNIPAQUE 350) VIAL IV ONE (20:00)
[2018-03-15 20:07] LABS: INR 1.1 (0.8-1.4); PROTHROMBIN TIME PATIENT 14.5 SEC (12.2-14.7)
[2018-03-15 20:10] LABS: ABG BASE EXCESS 4.4 MMOL/L (-2.5-2.5); ABG OXYGEN SATURATION 100 % (94-100); ABG PCO2 37 MMHG (35-45); ABG PH 7.48 (7.37-7.43); ABG PO2 130 MMHG (79-93); ABG TCO2 28.9 MMOL/L (21.0-31.0)
[2018-03-15 20:10] LABS: MAGNESIUM 1.5 MG/DL (1.8-2.4)
[2018-03-15 20:12] LABS: ALLENS TEST YES-POS
[2018-03-15 20:13] LABS: INSPIRED O2 100; PATIENT TEMP 98.5; VENTILATOR NO
[2018-03-15 20:14] LABS: BILIRUBIN,URINE NEGATIVE (NEGATIVE); CLARITY,URINE VERY CLOUDY; COLOR,URINE YELLOW; GLUCOSE, URINE (UA) NEGATIVE (NEGATIVE); KETONES,URINE NEGATIVE (NEGATIVE); LEUKOCYTE ESTERASE ,URINE 2+ (NEGATIVE); NITRITE,URINE NEGATIVE (NEGATIVE); PH,URINE 8 (5-9); PROTEIN,URINE 2+ (NEGATIVE); UROBILINOGEN,URINE 4 MG/DL (NORMAL)
[2018-03-15 20:17] LABS: ALANINE AMINOTRANSFERASE 25 U/L (0-55); ALBUMIN 2.8 GM/DL (3.2-4.5); ALKALINE PHOSPHATASE 177 U/L (40-136); BILIRUBIN,TOTAL 0.5 MG/DL (0.1-1.0); BUN/CREATININE RATIO 29; CALCIUM 8.6 MG/DL (8.5-10.1); CARBON DIOXIDE 23 MMOL/L (21-32); CHLORIDE 91 MMOL/L (98-107); CREATININE SERUM 0.58 MG/DL (0.60-1.30); GFR ESTIMATED > 60; GLUCOSE 116 MG/DL (70-105); POTASSIUM 4.4 MMOL/L (3.6-5.0); SODIUM 129 MMOL/L (135-145); TOTAL PROTEIN 5.8 GM/DL (6.4-8.2)
[2018-03-15 20:18] LABS: BAND NEUTROPHILS 14 %; BASOPHILS % (MANUAL) 0 %; EOSINOPHILS % (MANUAL) 0 %; LYMPHOCYTES % (MANUAL) 0 %; MONOCYTES % (MANUAL) 3 %; NEUTROPHILS % (MANUAL) 83 %; RBC MORPH NORMAL
[2018-03-15 20:23] LABS: BACTERIA,URINE LARGE /HPF; CALCIUM OXALATE CRYSTALS,UR FEW /LPF; WBC,URINE 50-100 /HPF
[2018-03-15 20:23] LABS: MYOGLOBIN SERUM 181.3 NG/ML (10.0-92.0)
--- NOTE | 2018-03-15 21:04 | Diagnostic Imaging Report ---
INDICATION: Respiratory distress. COMPARISON: 03/06/2018. EXAMINATION: Single view of the chest was obtained. FINDINGS: New bilateral hilar infiltrates with trace effusions. The heart is prominent. There is no pneumothorax. Tracheostomy tube and central venous catheter are stable. IMPRESSION: New hilar infiltrates with small effusions. This may represent pneumonia and/or possibly CHF. Dictated by: Dictated on workstation # [id number]
[2018-03-15] MEDS ORDERED: MAGNESIUM 1 GM/100 ML IVPB 100 ML IV ONE (21:15)
--- NOTE | 2018-03-15 21:43 | Diagnostic Imaging Report ---
PROCEDURE: CT angiography of the chest with contrast. TECHNIQUE: Multiple contiguous axial images were obtained through the chest after uneventful bolus administration of intravenous contrast. Reconstructed CTA MIP acquisitions were also performed. INDICATION: Infiltrates. SVC obstruction. Mediastinum mass. COMPARISON: 02/23/2018. 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 There has been some interval increase in size of the mass compared to the previous examination. The tracheostomy tube appears stable. Additional vascular structures remain patent. Multiple chest wall and spinal collaterals are present. The heart remains prominent. There is a small pericardial effusion. There is central vascular congestion and likely pulmonary edema. Enlarging bilateral pleural effusions with dependent atelectasis are present. There is no pulmonary embolism or acute aortic pathology. There is no pneumothorax. Centrilobular emphysema and paraseptal emphysema is seen in the upper lung zones. Visualized upper abdominal solid organs are stable. There is some soft tissue thickening of the retroperitoneum, likely secondary to known adrenal mass. IMPRESSION: 1. Continued unchanged SVC obstruction with multiple venous collaterals present. 2. Interval increase in size of the anterior mediastinal mass which appears to extend into the base of the neck on the right. 3. Cardiac enlargement with central vascular congestion and borderline pulmonary edema. 4. Pericardial effusion. 5. Increasing bilateral pleural effusions with dependent atelectasis. 6. Known left adrenal mass and thickening of the left retroperitoneum. 7. No pulmonary embolism or acute aortic pathology. Dictated by: Dictated on workstation # [id number]
[2018-03-15 22:30] VITALS: BP 120/82
[2018-03-15] MEDS ORDERED: fentaNYL INJECTION 100 MCG/2 ML AMP ONE (22:37)
[2018-03-15] MEDS ORDERED: NS W/KCL 20 MEQ/L 1,000 ML IV ONE (22:49)
[2018-03-15 23:00] VITALS: BP 109/79
[2018-03-15] MEDS: NS W/KCL 20 MEQ/L 1,000 ML IV SCH (23:30)
[2018-03-15 23:39] VITALS: BP 109/82
[2018-03-15] MEDS ORDERED: ACETAMINOPHEN 500 MG TAB (TYLENOL) PO PRN (23:45)
[2018-03-15] MEDS ORDERED: ONDANSETRON 4 MG/2 ML (SDV) Z0FRAN IV PRN (23:45)
[2018-03-16] VITALS (23 sets, daily range): BP systolic 89–112; BP diastolic 62–85
[2018-03-16] MEDS ORDERED: AZITHROMYCIN INJECTION 500 MG in NS (IVPB) 250 ML IV SCH ×2
[2018-03-16] MEDS: RT-ALBUTEROL/IPRATROPIUM 3 ML (DUONEB) VIAL INH SCH ×6 (01:35→21:55)
[2018-03-16] MEDS: HYDROmorphone 1 MG/ML (DILAUDID) 1 ML SYRINGE IV PRN ×4 (01:44→18:20)
[2018-03-16] MEDS: fentaNYL PATCH 50 MCG (DURAGESIC) TOP SCH (01:44)
[2018-03-16 04:15] LABS: BASOPHILS % (AUTO) 0 % (0-10); EOSINOPHILS % (AUTO) 0 % (0-10); HEMATOCRIT 27 % (40-54); LYMPHOCYTES # (AUTO) 0.3 X 10^3 (1.0-4.0); LYMPHOCYTES % (AUTO) 1 % (12-44); MEAN CORPUSCULAR HEMOGLOBIN 31 PG (25-34); MEAN CORPUSCULAR HGB CONC 34 G/DL (32-36); MEAN CORPUSCULAR VOLUME 92 FL (80-99); MEAN PLATELET VOLUME 8.4 FL (7.4-10.4); MONOCYTES # (AUTO) 1.1 X 10^3 (0.0-1.0); MONOCYTES % (AUTO) 4 % (0-12); NEUTROPHILS # (AUTO) 24.1 X 10^3 (1.8-7.8); NEUTROPHILS % (AUTO) 94 % (42-75); PLATELET COUNT 262 10^3/uL (130-400); RED BLOOD COUNT 2.94 10^6/uL (4.35-5.85); RED CELL DISTRIBUTION WIDTH 17.6 % (10.0-14.5); WHITE BLOOD COUNT 25.5 10^3/uL (4.3-11.0)
[2018-03-16 04:38] LABS: BUN/CREATININE RATIO 28; CALCIUM 8.3 MG/DL (8.5-10.1); CARBON DIOXIDE 23 MMOL/L (21-32); CHLORIDE 95 MMOL/L (98-107); CREATININE SERUM 0.54 MG/DL (0.60-1.30); GFR ESTIMATED > 60; GLUCOSE 113 MG/DL (70-105); MAGNESIUM 1.7 MG/DL (1.8-2.4); PHOSPHORUS 4.2 MG/DL (2.3-4.7); POTASSIUM 4.4 MMOL/L (3.6-5.0); SODIUM 130 MMOL/L (135-145)
[2018-03-16] MEDS: KCL 20 MEQ TAB (K-DUR) PO SCH (04:45)
[2018-03-16] MEDS: POTASSIUM CL 10MEQ/50ML IVPB 50 ML IV SCH (04:45)
[2018-03-16] MEDS: MAGNESIUM 1 GM/100 ML IVPB 100 ML IV SCH ×3 (05:21→06:52)
[2018-03-16] MEDS: NS W/KCL 20 MEQ/L 1,000 ML IV SCH (06:03)
[2018-03-16] MEDS: CEFEPIME INJECTION 2,000 MG in NS (IVPB) 50 ML IV SCH ×2 (06:04→20:14)
--- NOTE | 2018-03-16 06:29 | Pulmonary Consultation ---
History of Present Illness History of Present Illness Date of Consultation 03/16/18 06:22 Time Seen by Provider: 06:47 Date of Admission History of Present Illness 42yo with hx of extensive metastatic lung cancer, tracheostomy, and peg tube presented to ED secondary to worsenign respiratory distress. He was recently discharged from ARU on 03/13 to [facility]. PT believes this hospitalization is secondary to not being suctioned enough. Pt was given an hour long SVN in ED and suctioned which seemed to help. He denies fevers, chills. Pt has not been a candidate for chemo secondary to respiratory status and weakness. CT scan upon admission does show enlargement of cancer. I am consulted for pulmonary/ICU management. Allergies and Home Medications Allergies Coded Allergies: No Known Drug Allergies (Unverified , 03/30/16) Home Medications Clonazepam 0.5 Mg Tablet, 0.5 MG PO HS Prescribed by: RACHNA SANCHEZ on 03/12/181847 Fentanyl 1 Each Patch.td72, 50 MCG TD Q72H Prescribed by: RACHNA SANCHEZ on 03/12/181847 Hydromorphone HCl 2 Mg Tablet, 1 MG GT Q4H PRN for PAIN-SEVERE Prescribed by: RACHNA SANCHEZ on 03/12/181847 Ipratropium/Albuterol Sulfate 3 Ml Ampul.neb, 3 ML INH RTQ4HR Prescribed by: RACHNA SANCHEZ on 03/12/181847 Ipratropium/Albuterol Sulfate 3 Ml Ampul.neb, 3 ML IH RTQ2H PRN for SOA Prescribed by: RACHNA SANCHEZ on 03/12/181847 Lorazepam 1 Mg Tablet, 0.5-1 MG PEG Q8H PRN for ANXIETY MAY ALSO BE TAKEN FOR NAUSEA/VOMITING Prescribed by: RACHNA SANCHEZ on 03/12/181847 Prednisone 10 Mg Tab, 10 MG PEG DAILY@0700 Prescribed by: RACHNA SANCHEZ on 03/12/181847 Rivaroxaban 20 Mg Tablet, 20 MG PEG HS Prescribed by: RACHNA SANCHEZ on 03/12/181847 Scopolamine 1 Each Patch.td72, 1.5 MG TOP Q72H Prescribed by: RACHNA SANCHEZ on 03/12/181847 Sennosides/Docusate Sodium 1 Each Tablet, 1 EA PEG BID Prescribed by: RACHNA SANCHEZ on 03/12/18 1848 Simethicone 80 Mg Tab.chew, 80 MG PO Q6H PRN for GAS, (Reported) Past Qqwhryb-Lkatsf-Rdofhx Hx Patient Social History Alcohol Use: Denies Use Recreational Drug Use: No Smoking Status: Former Smoker Type Used: Cigarettes Former Smoker, Quit: Jan 24, 2018 Recent Foreign Travel: No Contact w/Someone Who Travel: No Recent Infectious Disease Expo: No Recent Hopitalizations: Yes ([facility] was discharged 02/14/18, [facility] recently) Immunizations Up To Date Tetanus Booster (TDap): Unknown PED Vaccines UTD: No Seasonal Allergies Seasonal Allergies: No Past Medical History Surgeries: Yes (TRACH,INFUSAPORT,FEEDING TUBE, LUNG BX) Tracheostomy Respiratory: No Currently Using CPAP: No Currently Using BIPAP: No Cardiac: No Neurological: No Reproductive Disorders: No Sexually Transmitted Disease: No Genitourinary: No Gastrointestinal: No Musculoskeletal: No Endocrine: No HEENT: Yes (CANCER METS TO THROAT-pushed on vocal cords) Cancer: Yes (PRIMARY LUNG METS TO ESOPHAGUS, TRACHEA, ADRENAL GLANDS) Lung, Esophageal Did You Recieve Any Treatments: Yes What Type of Treatment Did You: Chemotherapy, Radiation, Surgical Intervention Psychosocial: Yes Anxiety, Depression Integumentary: No Blood Disorders: No Family Medical History LEUKEMIA 19 FATHER No Pertinent Family Hx, Diabetes, Hypertension Review of Systems Time Seen by Provider: 06:51 Constitutional: Sweats, Weakness, Malaise; No: Fever, Chills, Other Eyes: No: Pain, Vision change, Conjunctivae inflammation, Eyelid inflammation, Other, Redness ENT: No: Ear pain, Ear discharge, Nose pain, Nose discharge, Nose congestion, Mouth pain, Mouth swelling, Throat pain, Throat swelling, Other Respiratory: Shortness of breath, Wheezing, Sputum; No: Hemoptysis Cardiovascular: Palpitations, Paroxysmal Noc. Dyspnea; No: Chest Pain, Orthopnea, Edema, Lt Headedness, Other Neurological: Weakness, Confusion Exam Exam Vital Signs Date Time Temp Pulse Resp B/P (MAP) Pulse Ox O2 Delivery O2 Flow Rate FiO2 03/16/18 06:00 101 10 108/79 (89) 99 Trach Collar 35.00 03/16/18 05:00 101 11 103/76 (85) 98 Trach Collar 35.00 03/16/18 04:00 99 Trach Collar 30 03/16/18 04:00 108 26 109/81 (90) 96 Trach Collar 35.00 03/16/18 04:00 97.0 03/16/18 03:00 108 14 112/84 (93) 99 Trach Collar 35.00 03/16/18 02:00 109 13 108/79 (89) 99 Trach Collar 35.00 03/16/18 01:35 99 Trach Collar 10.00 30 03/16/18 01:00 107 13 98/83 (88) 100 Trach Collar 35.00 03/16/18 01:00 106 03/16/18 00:00 99 Trach Collar 30 03/16/18 00:00 110 13 101/78 (86) 100 Trach Collar 35.00 03/15/18 23:59 98.3 03/15/18 23:50 99 Trach Collar 35 03/15/18 23:39 109 100 50 03/15/18 23:39 100 Trach Collar 12.00 50 03/15/18 23:00 112 12 109/79 (89) 100 Trach Collar 35.00 03/15/18 22:30 98.5 112 14 120/82 (95) 100 Trach Collar 11.00 03/15/18 21:00 96 Trach Collar 70 03/15/18 19:45 99 Trach Collar 100 03/15/18 19:24 86 Trach Collar 03/15/18 19:20 98.5 117 28 145/97 (113) 87 Trach Collar 6.00 I & O 03/16/18 07:00 Intake Total 50 ml Output Total 250 ml Balance -200 ml General Appearance: Anxious, Mild Distress HEENT: PERRL/EOMI, Normal ENT Inspection, Pharynx Normal Neck: Normal Inspection, Supple, Other (trach in place) Respiratory: Accessory Muscle Use, Crackles, Decreased Breath Sounds Cardiovascular: Tachycardia, Other (edema upper extremities bilateral) Capillary Refill: Less Than 3 Seconds Gastrointestinal: normal bowel sounds, guarding, tenderness (left upper quadrant) Extremity: Normal Capillary Refill, Non Tender, No Calf Tenderness Neurologic/Psychiatric: Alert, Oriented x3 Skin: Normal Color, Warm/Dry Lymphatic: No Adenopathy Results Lab Laboratory Tests 03/15/18 19:40 03/16/18 04:10 Assessment/Plan Assessment/Plan 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 -Oncology following sepsis -Change Abx to vanco, cefepime and Levaquin -Leahy culture -Continue to monitor Bilateral pleural effusions Pericardial effusion Acute on chronic respiratory failure with tracheostomy placed at [facility] -Continue to monitor in ICU -Mucomyst Q4 with SVNs -Solumedrol -Frequent suctioning PRN gastric paresis with constipation depression/anxiety - zoloft ativan Pain management - Anemia -monitor -check occult stools PEG tube -TF continue 255 ALVINA MCADAMS DO March 16, 2018 06:29
[2018-03-16] MEDS ORDERED: BUMETANIDE 1 MG/4 ML (BUMEX) VIAL IV ONE (06:30)
[2018-03-16] MEDS ORDERED: PHARMACY TO DOSE IV SCH (06:30)
[2018-03-16] MEDS ORDERED: VANCOMYCIN 1500 MG/NS 500 ML IVPB IV ONE ×2 (06:45)
[2018-03-16] MEDS: LEVOFLOXACIN 750 MG/150 ML IV 150 ML IV SCH (07:48)
[2018-03-16] MEDS: fentaNYL INJECTION 100 MCG/2 ML AMP IV PRN ×3 (08:30→20:11)
--- NOTE | 2018-03-16 09:25 | History & Physical-Hospitalist ---
History of Present Illness HPI/Chief Complaint Pt is a 42yoCM known to me from previous admission with a PMH of metastatic lung cancer trach and peg dependent who presented to the ER due to respiratory distress. He was discharged from ARU on 03/13 to a half-way in [place]. He reports that he was doing well but that they were not deep suctioning his trach and he started to get short of breath. He also does not believe they were doing breathing treatments often enough. EMS was eventually called due to his dyspnea and he was brought here and found to be acute respiratory distress. He was started on an hour long breathing treatment and was suctioned by RT and symptoms improved. He states he feels better today. He denies any fevers or chills. He has no respiratory complaints today. He states he would like to improve his breathing so that he can restart on chemo for his cancer. Source: patient Date Seen 03/16/18 Time Seen by Provider: 09:25 Attending Physician Ginette Elliott MD PCP No,Local Physician Referring Physician Date of Admission March 15, 2018 at 9:20 pm Home Medications & Allergies Home Medications Reviewed patient Home Medication Reconciliation performed by pharmacy medication reconciliations network operations technician and/or nursing. Patients Allergies have been reviewed. Allergies Allergies Coded Allergies No Known Drug Allergies (Unverified03/30/16) Past Tcowzxn-Rbditv-Ojhasq Hx Past Med/Social Hx: Reviewed Nursing Past Med/Soc Hx Patient Social History Alcohol Use: Denies Use Recreational Drug Use: No Smoking Status: Former Smoker Former Smoker, Quit: Jan 24, 2018 Type Used: Cigarettes Physical Abuse Screen: No Sexual Abuse: No Recent Foreign Travel: No Contact w/other who traveled: No Recent Hopitalizations: Yes ([facility] was discharged 02/14/18, [facility] recently) Recent Infectious Disease Expo: No Immunizations Up To Date Tetanus Booster (TDap): Unknown Pediatric: No Seasonal Allergies Seasonal Allergies: No Past Medical History Surgeries: Tracheostomy Respiratory: Pneumonia Currently Using CPAP: No Currently Using BIPAP: No Reproductive: No Sexually Transmitted Disease: No Cancer: Lung, Esophageal Did You Recieve Any Treatments: Yes What Type of Treatment Did You: Chemotherapy, Radiation, Surgical Intervention Psychosocial: Anxiety, Depression History of Blood Disorders: No Family History LEUKEMIA 19 FATHER No Pertinent Family Hx, Diabetes, Hypertension Review of Systems Constitutional: No chills, No fever, No weakness EENTM: no symptoms reported Respiratory: see HPI, cough, short of breath, wheezing Cardiovascular: no symptoms reported Gastrointestinal: no symptoms reported; No abdominal pain Genitourinary: no symptoms reported Musculoskeletal: no symptoms reported Skin: no symptoms reported Psychiatric/Neurological: No Symptoms Reported All Other Systems Reviewed Negative Unless Noted: Yes (Negative excepted noted.) Physical Exam Physical Exam Vital Signs Vital Signs - First Documented 03/15/18 03/15/18 19:20 19:45 Temp 98.5 Pulse 117 Resp 28 B/P (MAP) 145/97 (113) Pulse Ox 87 O2 Delivery Trach Collar O2 Flow Rate 6.00 FiO2 100 Capillary Refill : Less Than 3 Seconds General Appearance: No Apparent Distress, Chronically ill, Cachetic HEENT: PERRL/EOMI; No Scleral Icterus (L), No Scleral Icterus (R) Neck: Supple; No JVD; Other (trach) Respiratory: No Respiratory Distress, Decreased Breath Sounds, Other (trach dependent- on trach shield) Cardiovascular: Regular Rate, Rhythm, No Murmur Gastrointestinal: Normal Bowel Sounds, Non Tender, Soft, Other (peg tube in place) Extremity: No Calf Tenderness, No Pedal Edema Neurologic/Psychiatric: Alert, Oriented x3, No Motor/Sensory Deficits Results Results/Procedures Labs Laboratory Tests 03/15/18 19:40 03/16/18 04:10 Patient resulted labs reviewed. Imaging: Reviewed Imaging Films, Reviewed Imaging Report Assessment/Plan Admission Diagnosis Pneumonia Admission Status: Inpatient Order (span 2 midnights) Reason for Inpatient Admission: Acute respiratory distress, needs IV abx Diagnosis/Problems Diagnosis/Problems (1) Pneumonia Status: Acute Assessment & Plan: Continue on Vanc and Levaquin and Cefepime MAT protocol Sputum culture Blood cultures Meets sepsis criteria based off tachycardia and WBC Not severe sepsis- no hypotension Pleural effusion noted as well Dr Mims consulted, appreciate recs Discussed with him this AM - Will attempt to avoid lasix due to pericardial effusion and improving without it Qualifiers: Pneumonia type: due to unspecified organism Laterality: bilateral Lung location: unspecified part of lung Qualified Codes: J18.9 - Pneumonia, unspecified organism (2) Malignant neoplasm of unspecified part of unspecified bronchus or lung Status: Chronic Assessment & Plan: Metastatic lung cancer currently on Chemo Will consult Oncology (3) Sepsis Status: Acute Assessment & Plan: Abx as above Not severe sepsis Await cultures Qualifiers: Sepsis type: sepsis due to unspecified organism Qualified Codes: A41.9 - Sepsis, unspecified organism (4) Debilitated Status: Chronic Assessment & Plan: PT/OT Just DC-ed from IRU (5) PEG (percutaneous endoscopic gastrostomy) adjustment/replacement/removal Status: Chronic Assessment & Plan: Continue PEG feeds (6) Normocytic anemia Assessment & Plan: Likely due to malnutrition and chemo Trend (7) Prophylactic measure Assessment & Plan: Xarelto NS PEG feeds Clinical Quality Measures DVT/VTE Risk/Contraindication: Risk Factor Score Per Nursin RFS Level Per Nursing on Admit: 3=High GINETTE ELLIOTT MD March 16, 2018 9:25 am
--- NOTE | 2018-03-16 12:01 | Diagnostic Imaging Report ---
Clinical indication: Patient with respiratory distress. Exam: Portable chest x-ray upright view. Comparison: Chest x-ray dated 03/15/2018. Findings: There is slight increased density or fluid in the lateral right lung base region seen. There is otherwise persistent bilateral perihilar and bibasilar lung infiltrates. Air bronchograms seen in the retrocardiac region is again noted. The upper lung sweeney are clear. There is no pneumothorax. There is slight increased size of the small right pleural effusion and stable left pleural effusion. Tracheostomy tube is seen. Central line seen with tip in the high right atrial region, stable. The remainder of this exam shows no significant interval change compared to the prior study of comparison. Impression: 1: Interval increased size of a small right pleural effusion and stable small left pleural effusion. 2: Stable bilateral perihilar and bibasilar infiltrates. Dictated by: Dictated on workstation # [id number]
[2018-03-16] MEDS ORDERED: PANTOPRAZOLE 40 MG (PROTONIX) TAB PO ONE (16:30)
[2018-03-16] MEDS ORDERED: RIVAROXABAN 20 MG TABLET (XARELTO) PO SCH (17:00)
[2018-03-16] MEDS ORDERED: PANTOPRAZOLE 40 MG/10 ML (PROTONIX) VIAL IV ONE (19:00)
[2018-03-16] MEDS: VANCOMYCIN 1250 MG/NS 250 ML IVPB IV SCH ×2 (20:15)
[2018-03-16] MEDS: LORazepam INJ 2 MG/ML (ATIVAN) VIAL IV PRN (21:53)
[2018-03-17] VITALS (20 sets, daily range): BP systolic 93–116; BP diastolic 66–90
[2018-03-17] MEDS: HYDROmorphone 1 MG/ML (DILAUDID) 1 ML SYRINGE IV PRN ×7 (00:56→20:27)
[2018-03-17] MEDS: RT-ALBUTEROL/IPRATROPIUM 3 ML (DUONEB) VIAL INH SCH ×6 (01:17→22:47)
[2018-03-17 04:19] LABS: BASOPHILS # (AUTO) 0.1 10^3/uL (0.0-0.1); BASOPHILS % (AUTO) 0 % (0-10); EOSINOPHILS # (AUTO) 0.2 10^3/uL (0.0-0.3); EOSINOPHILS % (AUTO) 1 % (0-10); HEMATOCRIT 28 % (40-54); HEMOGLOBIN 9.2 G/DL (13.3-17.7); LYMPHOCYTES # (AUTO) 0.3 X 10^3 (1.0-4.0); LYMPHOCYTES % (AUTO) 1 % (12-44); MEAN CORPUSCULAR HEMOGLOBIN 30 PG (25-34); MEAN CORPUSCULAR HGB CONC 33 G/DL (32-36); MEAN CORPUSCULAR VOLUME 93 FL (80-99); MEAN PLATELET VOLUME 8.7 FL (7.4-10.4); MONOCYTES # (AUTO) 1.2 X 10^3 (0.0-1.0); MONOCYTES % (AUTO) 5 % (0-12); NEUTROPHILS # (AUTO) 24.7 X 10^3 (1.8-7.8); NEUTROPHILS % (AUTO) 94 % (42-75); PLATELET COUNT 317 10^3/uL (130-400); RED BLOOD COUNT 3.05 10^6/uL (4.35-5.85); RED CELL DISTRIBUTION WIDTH 17.2 % (10.0-14.5); WHITE BLOOD COUNT 26.4 10^3/uL (4.3-11.0)
[2018-03-17 04:36] LABS: BUN/CREATININE RATIO 32; CALCIUM 8.6 MG/DL (8.5-10.1); CARBON DIOXIDE 25 MMOL/L (21-32); CHLORIDE 96 MMOL/L (98-107); GFR ESTIMATED > 60; GLUCOSE 121 MG/DL (70-105); MAGNESIUM 1.8 MG/DL (1.8-2.4); PHOSPHORUS 4.1 MG/DL (2.3-4.7); POTASSIUM 4.3 MMOL/L (3.6-5.0); SODIUM 132 MMOL/L (135-145)
[2018-03-17] MEDS: POTASSIUM CL 10MEQ/50ML IVPB 50 ML IV SCH (05:02)
[2018-03-17] MEDS: MAGNESIUM 1 GM/100 ML IVPB 100 ML IV SCH (05:02)
[2018-03-17] MEDS: KCL 20 MEQ TAB (K-DUR) PO SCH (05:03)
[2018-03-17] MEDS: LEVOFLOXACIN 750 MG/150 ML IV 150 ML IV SCH (05:51)
--- NOTE | 2018-03-17 06:15 | Pulmonary Progress Note ---
Subjective Time Seen by Provider: 06:53 Subjective/Events-last exam Pt states he wants to continue aggressive care. C/O mucous production and SOB. Focused Exam Lactate Level 03/15/18 19:40: Lactic Acid Level 1.40 Exam Exam Vital Signs Date Time Temp Pulse Resp B/P (MAP) Pulse Ox O2 Delivery O2 Flow Rate FiO2 03/17/18 05:00 111 13 98/78 (85) 99 Trach Collar 30.00 03/17/18 04:00 118 13 116/90 (99) 92 Trach Collar 30.00 03/17/18 04:00 97.9 03/17/18 04:00 96 Trach Collar 30 03/17/18 03:00 114 13 98/71 (80) 97 Trach Collar 30.00 03/17/18 02:00 115 13 98/72 (81) 96 Trach Collar 30.00 03/17/18 01:17 93 Trach Collar 8.00 30 03/17/18 01:00 113 03/17/18 01:00 113 13 98/68 (78) 91 Trach Collar 30.00 03/17/18 00:00 96 Trach Collar 30 03/17/18 00:00 118 20 97/69 (78) Trach Collar 30.00 03/17/18 00:00 98.3 03/16/18 23:00 115 13 95/70 (78) Trach Collar 30.00 03/16/18 22:00 112 14 92/68 (76) Trach Collar 30.00 03/16/18 21:55 93 Trach Collar 8.00 30 03/16/18 21:53 Trach Collar 30.00 03/16/18 21:00 115 16 104/79 (87) Trach Collar 28.00 03/16/18 20:00 117 12 102/69 (80) Trach Collar 28.00 03/16/18 20:00 Trach Collar 28 03/16/18 20:00 98.8 03/16/18 19:04 95 Trach Collar 6.00 28 03/16/18 19:00 113 03/16/18 19:00 113 13 103/75 (84) Trach Collar 28.00 03/16/18 17:00 114 14 101/75 (84) 92 Trach Collar 28.00 03/16/18 16:11 Trach Collar 28 03/16/18 16:00 108 14 101/72 (82) 100 Trach Collar 28.00 03/16/18 15:52 98.2 Trach Collar 28.00 03/16/18 15:52 99 Trach Collar 10.00 30 03/16/18 15:00 110 16 99/70 (80) 96 Trach Collar 30.00 03/16/18 14:00 106 13 100/65 (77) 100 Trach Collar 30.00 03/16/18 13:00 105 22 89/62 (71) 96 Trach Collar 30.00 03/16/18 13:00 106 03/16/18 12:00 Trach Collar 30 03/16/18 12:00 105 14 102/65 (77) 98 Trach Collar 30.00 03/16/18 12:00 98.0 Trach Collar 30.00 03/16/18 11:00 104 12 106/73 (84) 97 Trach Collar 30.00 03/16/18 10:34 99 Trach Collar 10.00 30 03/16/18 10:00 101 12 105/77 (86) 98 Trach Collar 30.00 03/16/18 09:00 103 15 105/77 (86) 98 Trach Collar 30.00 03/16/18 08:00 101 11 111/85 (94) 98 Trach Collar 35.00 03/16/18 08:00 97.2 Trach Collar 30.00 03/16/18 08:00 Trach Collar 30 03/16/18 07:00 99 Trach Collar 10.00 30 03/16/18 07:00 102 15 107/82 (90) 95 Trach Collar 35.00 03/16/18 07:00 103 I & O 03/17/18 07:00 Intake Total 1125 ml Output Total 2525 ml Balance -1400 ml General Appearance: No Apparent Distress, Chronically ill, Cachetic HEENT: PERRL/EOMI; No Scleral Icterus (L), No Scleral Icterus (R) Neck: Supple; No JVD; Other (trach) Respiratory: No Respiratory Distress, Decreased Breath Sounds, Other (trach dependent- on trach shield) Cardiovascular: Regular Rate, Rhythm, No Murmur Capillary Refill: Less Than 3 Seconds Gastrointestinal: normal bowel sounds, guarding, tenderness (left upper quadrant) Extremity: No Calf Tenderness, No Pedal Edema Neurologic/Psychiatric: Alert, Oriented x3, No Motor/Sensory Deficits Results Lab Laboratory Tests 03/15/18 19:40 03/16/18 04:10 03/17/18 04:10 Assessment/Plan Assessment/Plan 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
[2018-03-17] MEDS: VANCOMYCIN 1250 MG/NS 250 ML IVPB IV SCH ×4 (06:23→19:34)
[2018-03-17] MEDS ORDERED: VANCOMYCIN 1250 MG/NS 250 ML IVPB IV SCH ×2 (06:45)
[2018-03-17] MEDS ORDERED: PANTOPRAZOLE 40 MG (PROTONIX) TAB PO SCH (07:00)
--- NOTE | 2018-03-17 08:21 | Diagnostic Imaging Report ---
INDICATION: History of metastatic lung carcinoma. Respiratory distress.. TECHNIQUE: Single view chest 3:20 AM. CORRELATION STUDY: 03/16/2018 FINDINGS: Left-sided Bcgmfz-x-Nhuk catheter and tracheostomy tube remain in place. Heart size remains enlarged with somewhat rounded configuration. Vasculature is improved on followup. Bilateral pleural effusion along with consolidation of the lower lung sweeney persisting, likely relatively stable. Component of interstitial edema does appear to be present. Abnormal foci structures remained present. IMPRESSION: 1. Moderately large bilateral pleural effusions and consolidation at both lung bases persisting. Component of interstitial edema and mild vascular congestion is noted. Dictated by: Dictated on workstation # [id number]
[2018-03-17] MEDS: PANTOPRAZOLE 40 MG/10 ML (PROTONIX) VIAL IV SCH (08:43)
[2018-03-17] MEDS: CEFEPIME INJECTION 2,000 MG in NS (IVPB) 50 ML IV SCH ×2 (08:43→21:09)
[2018-03-17] MEDS ORDERED: PRD10T PEG (11:04)
[2018-03-17] MEDS ORDERED: LORA1TAB PEG (11:04)
[2018-03-17] MEDS ORDERED: RIVA20TA PEG (11:04)
[2018-03-17] MEDS ORDERED: HYDR2TAB6 PEG (11:04)
[2018-03-17] MEDS ORDERED: IPRA3AMP IH (11:04)
[2018-03-17] MEDS ORDERED: CLON0.5T3 PEG (11:04)
[2018-03-17] MEDS ORDERED: SENN-109 PEG (11:04)
[2018-03-17] MEDS ORDERED: FENT1PAT59 TD (11:04)
[2018-03-17] MEDS ORDERED: SCOP1PAT11 TD (11:04)
[2018-03-17] MEDS ORDERED: MORP100S3 PEG (11:04)
[2018-03-17] MEDS: fentaNYL INJECTION 100 MCG/2 ML AMP IV PRN ×2 (11:09→23:43)
--- NOTE | 2018-03-17 13:27 | Physical Therapy Evaluation ---
PT Evaluation-General Medical Diagnosis Admission Date March 15, 2018 at 21:20 Medical Diagnosis: pneumonia Onset Date: March 15, 2018 Therapy Diagnosis Therapy Diagnosis: weakness;abn gait Height/Weight Height (Feet): 6 Height (Inches): 6.00 Weight (Pounds): 176 Weight (Ounces): 8.0 Precautions Precautions/Isolations: Fall Prevention, Standard Precautions Referral Physician: Lexi Reason for Referral: Evaluation/Treatment Medical History Pertinent Medical History: Smoking Additional Medical History Metastatic lung CA Current History Admitted to [facility] with diagnosis of pneumonia/sepsis with above noted diagnosis. Pt was recently discharged to a LTC facility post a short stay on ARU at this hospital. Reviewed History: Yes Social History Home: Single Level Current Living Status: Significant Other Prior/Core FIM Prior Level of Function Functional [place] Measure 0=Not Assessed/NA 4=Minimal Assistance 1=Total Assistance 5=Supervision or Setup 2=Maximal Assistance 6=Modified [place] 3=Moderate Assistance 7=Complete [place] Bed Mobility: 7 Transfers (B,C,W/C) (FIM): 7 Gait: 7 This is a relatively new diagnosis; prior to diagnosis, he was indep with all and working. PT Evaluation-Current Subjective Agreeable to sit up in the chair. Pain Numeric Pain Scale: 4 Location: Left Location Body Site: Abdomen Pain Description: Ache Objective Patient Orientation: Person, Place, Time, Situation Problem Solving: Fair feeding tube ROM/Strength ROM Lower Extremities WFL Strength Lower Extremities grossly 3/5 throughout Integumentary/Posture Integumentary refer to nursing notes. Bowel Incontinence: No Bladder Incontinence: No Posture normal and symmetrical Neuromuscular (Tone, Coordination, Reflexes) intact and functional Sensory Vision: Wears Glasses Hearing: Functional Hand Dominance: Right Sensation Right Lower Extremit: Intact Sensation Left Lower Extremity: Intact Transfers Functional [place] Measure 0=Not Assessed/NA 4=Minimal Assistance 1=Total Assistance 5=Supervision or Setup 2=Maximal Assistance 6=Modified [place] 3=Moderate Assistance 7=Complete [place] Transfers (B, C, W/C) (FIM): 4 Supine to/from Sit: 4 Sit to/from Stand: 4 bed t/f WC(FIM only if WC use): 4 CGA with all transfers for safety. Gait Mode of Locomotion: Walk Anticipated Mode of Locomotion: Walk Comments/Gait Description NT this date Balance Sitting Static: Good Sitting Dynamic: Good Standing Static: Good Standing Dynamic: Fair Treatment Pt transferred to chair. Assessment/Needs Pt recently seen by this therapist on ARU; he has decreased functional strength and activity tolerance which impairs his transfers and gait. He will benefit from skilled PT to work on functional strength to improve his ability to mobilize with decreased caregiver burden. Rehab Potential: Guarded PT Fci Goals Fci Goals PT Stock Handler Floorperson Goals Time Frame: March 26, 2018 Transfers (B,C,W/C) (FIM): 6 Gait (FIM): 5 Gait distance (FIM): 3=150 ft Gait Assistive Device: FWW PT Plan Problem List Problem List: Activity Tolerance, Functional Strength, Safety, Balance, Gait, Transfer, Bed Mobility Treatment/Plan Treatment Plan: Continue Plan of Care Treatment Plan: Bed Mobility, Education, Functional Activity Isaiah, Functional Strength, Gait, Safety, Therapeutic Exercise, Transfers Treatment Duration: March 26, 2018 Frequency: 6 times per week Estimated Hrs Per Day: .25 hour per day Patient and/or Family Agrees t: Yes Safety Risks/Education Patient Education: Transfer Techniques, Safety Issues Teaching Recipient: Patient Teaching Methods: Demonstration, Discussion Response to Teaching: Reinforcement Needed Time/GCodes Time In: 921 Time Out: 940 Total Billed Treatment Time: 19 Total Billed Treatment visit EVM 19 SIMIN FIGUEROA PT March 17, 2018 13:27
--- NOTE | 2018-03-17 14:34 | Occupational Therapy Eval ---
OT Evaluation-General/PLF Medical Diagnosis Admission Date March 15, 2018 at 21:20 Medical Diagnosis: pneumonia Onset Date: March 15, 2018 Therapy Diagnosis Therapy Diagnosis: Weakness Height/Weight Height (Feet): 6 Height (Inches): 6.00 Weight (Pounds): 176 Weight (Ounces): 8.0 Precautions Precautions/Isolations: Fall Prevention, Standard Precautions Safety Interventions: None Weight Bear Status Weight Bearing Restriction: Weight Bearing/Tolerated Referral Physician: Lexi Referral Reason: Activity Tolerance, Self Care, Evaluation/Treatment, Strengthening/ROM Medical History Pertinent Medical History: Smoking Additional Medical History metastatic lung CA, trach, PEG dependent. Current History Pt. was on ARU. Went to [place]. Was there 2 days before having breathing problems. Pt. has no voice. Able to mouth words. Reviewed History: Yes Social History Home: Longterm Current Living Status: Entry Into Home: Level Entry ADL-Prior Level of Function ADL PLOF Comments Originally, pt. was independent with daily tasks. Pt. has had a chronic medical history, and now is staying in NH. DME/Equipment Comments Pt. has a walker. OT Current Status Subjective Pt. does not report pain. Appearance Pt.lying in bed. OT encourages him to sit on side of bed. Pt. thinks about it but then requests to just do "arm exercises" in the bed. OT asks pt. if he would like to change his clothing or to clean self up. Pt. states, "maybe later." Mental Status/Objective Patient Orientation: Person, Place, Time Attachments: Colostomy/Ileostomy, IV, Telemetry Current Hand Dominance: Right Upper Extremity ROM Pt. is able to flex bilateral shoulders to approximately 90 degrees. Pt. also has multiple lines. Edema: Pt. has significant edema in bilateral UE. ADL-Treatment Functional [place] Measure 0=Not Assessed/NA 4=Minimal Assistance 1=Total Assistance 5=Supervision or Setup 2=Maximal Assistance 6=Modified [place] 3=Moderate Assistance 7=Complete IndependenceIRFPAI Quality Coding Scale 6 Independent with activity with or without an assistive device 5 Patient requires set up or clean up by helper. Patient completes activity by themselves 4 Supervision or touching assist (CGA). [place] provide cues , steadying assist 3 The helper provides less than half the effort to complete the activity 2 The helper provides more than half the effort to complete the activity 1 Dependent. The helper does all the effort to complete an activity 7 Patient refused to complete or attempt activity 9 The patient did not perform the activity before the current illness or injury 88 Not attempted due to Medical conditions or safety concerns Pt. is adamant that he does not want to sit up. Completed 5 bilateral UE exercises x 10 reps each actively for increased overall movement and decreased swelling. Pt. is encouraged to attempt to use the bathroom or re-position after he is done. He indicates that he can use the urinal with no difficulty. States that he is comfortable. Education OT Patient Education: Correct positioning, Exercise program, Progress toward Goal/Update tx plan, Purpose of tx/functional activities, Reviewed precautions, Rehab process Teaching Recipient: Patient Teaching Methods: Demonstration, Discussion Response to Teaching: Verbalize Understanding, Return Demonstration OT Short Term Goals Short Term Goals 1=Demonstrate adherence to instructed precautions during ADL tasks. 2=Patient will verbalize/demonstrate understanding of assistive devices/ modifications for ADL. 3=Patient will improve strength/tolerance for activity to enable patient to perform ADL's. OT Detention Goals Advertising Sales Manager Goals Time Frame: March 24, 2018 Bathing(FIM): 4 Upper Body Dressing(FIM): 5 Lower Body Dressing(FIM): 5 Toileting(FIM): 6 Transfers (B,C,W/C) (FIM): 6 Toilet/Commode Transfer(FIM): 6 Additional Goals: 1-Demonstrate ADL Tasks, 2-Verbalize Understanding, 3- ImproveStrength/Isaiah 1=Demonstrate adherence to instructed precautions during ADL tasks. 2=Patient will verbalize/demonstrate understanding of assistive devices/ modifications for ADL. 3=Patient will improve strength/tolerance for activity to enable patient to perform ADL's. OT Education/Plan Problem List/Assessment Assessment: Decreased Activ Tolerance, Decreased UE Strength, Dependent Transfers, Impaired Funct Balance, Impaired I ADL's, Impaired Self-Care Skills, Restricted Funct UE ROM Discharge Recommendations Plan/Recommendations: Continue POC Therapy D/C Recommendations: 24 hr Supervision Comment Discharge destination and equipment needs to be determined. Treatment Plan/Plan of Care Treatment,Training & Education: Yes Patient would benefit from OT for education, treatment and training to promote independence in ADL's, mobility, safety and/or upper extremity function for ADL' s. Plan of Care: ADL Retraining, Functional Mobility, UE Funct Exercise/Act Treatment Duration: March 24, 2018 Frequency: 5 times per week Estimated Hrs Per Day: .5 hour per day Agreement: Yes Rehab Potential: Guarded Time/GCodes Start Time: 08:25 Stop Time: 08:41 Total Time Billed (hr/min): 16 Billed Treatment Time 1, LO SANTOS OT March 17, 2018 14:34
--- OUTSIDE RECORDS SUMMARY | 2018-03-17 15:08 | XMS REPORT | Continuity of Care Document ---
Author Author [employer] Organization [facility] Address Unknown Phone Unavailable Care Team Providers Care Ux Engineer Name Role Phone [employer] Unavailable Unavailable Problems Medications Allergies, Adverse Reactions, Alerts Immunizations Results Vital Signs Encounters Location Location Details Encounter Type Encounter Number Reason For Visit Attending Provider ADM Date DC Date Status Source INPATIENT [id number] MORGAN VERONIKA 01/24/20182017 Active [facility] RAD/ONC [id number] HANNAH SALVADOR 02/14/2018 Active [facility] RAD/ONC [id number] 02/25/2018 Active [facility] O HANNAH SALVADOR 02/28/2018 Active [facility] Procedures Plan of Care Social History Assessment and Plan Family History Advance Directives Functional Status
--- OUTSIDE RECORDS SUMMARY | 2018-03-17 15:09 | XMS REPORT | Encounter Summary ---
Author Author [facility] Organization [facility] Address Unknown Phone Unavailable Care Team Providers Care Building Surveyor Name Role Phone No Pcp, Na PCP Unavailable Reason for Referral * Consult, Test & Treat (Urgent) Status Reason Specialty Diagnoses / Referred By Referred To Procedures Contact Contact New Request Specialty Radiation Therapy Diagnoses Pasha Wood MD Myers, Duane, MD Services Mediastinal mass [address] [place], [place] [address] [place], [place] Phone: [phone] Phone: Encounter Details Date Type Department Care Team Description 02/14/2018 Orders Only [facility] - [facility] Dread Blanco RN Mediastinal mass (Primary Therapy Dx) [address] [place], [place] [id number] Social History Tobacco Use Types Packs/Day Years Used Date Current Every Day Smoker Smokeless Tobacco: Never Used Alcohol Use Drinks/Week oz/Week Comments No Sex Assigned at Date Recorded Not on file as of this encounter Functional Status Functional Status Response Date of Assessment Does the patient have a hearing impairment: No 01/25/2018 as of this encounter Plan of Treatment Name Priority Associated Diagnoses Order Schedule AMB REFERRAL TO RADIATION ONCOLOGY Routine Mediastinal mass Ordered: as of this encounter Visit Diagnoses Diagnosis Mediastinal mass - Primary Swelling, mass, or lump in chest
--- OUTSIDE RECORDS SUMMARY | 2018-03-17 15:09 | XMS REPORT | Encounter Summary ---
Author Author [facility] Organization [facility] Address Unknown Phone Unavailable Care Team Providers Care Canoe Maker Name Role Phone No Pcp, Na PCP Unavailable Encounter Details Date Type Department Care Team Description 02/14/2018 [facility] - Radiation Pasha Wood MD Therapy [address] [place] [address] [place] [address] [place] [address] [phone] Social History Tobacco Use Types Packs/Day Years Used Date Current Every Day Smoker Smokeless Tobacco: Never Used Alcohol Use Drinks/Week oz/Week Comments No Sex Assigned at Date Recorded Not on file as of this encounter Functional Status Functional Status Response Date of Assessment Does the patient have a hearing impairment: No 01/25/2018 as of this encounter Progress Notes * Pasha Wood MD - 02/14/2018 11:59 PM CDT Formatting of this note may be different from the original. End of Treatment Summary Note Date: 02/26/2018 Kelvin Zaldivar is a 42 y.o. male. There were no encounter diagnoses. Staging: Cancer Staging No matching staging information was found for the patient. Treatment Data Summary: Treatment Data 02/06/2018 02/07/2018 02/10/2018 02/11/2018 02/12/2018 02/13/20182017 Course ID [id number] X0-Vrem-[id number] D1-Wfhf-Dwnhopha [id number]-Jkki-Pievbgdt C1 -Neck-Mediasti N2-Cbwd-Dnlefgui G4-Wvxl-Edvxtqtk Plan ID Neck-Mediast1:1 Neck-Med-I # Neck-Med-I # Neck-Med-I # Neck-Med-I # Neck -Med-I # Neck-Med-I # Prescription Dose (cGy) 2,100 5,200 5,200 5,200 5,200 5,200 5,200 Prescribed Dose per Fraction (Gy) 3 2 2 2 2 2 2 Fractions Treated to Date 1 1 2 3 4 5 6 Total Fractions on Plan 7 26 26 26 26 26 26 Treatment Elapsed Days 5 6 9 10 11 12 13 Reference Point ID Neck-Mediastinum Neck-Mediastinum Neck-Mediastinum Neck- Mediastinum Neck-Mediastinum Neck-Mediastinum Neck-Mediastinum Dosage Given to Date 12 [id number] He tolerated XRT. He initially received 4 fractions of radiotherapy at 3 Gy per fractions. Then his treatment was switched to IMRT at 2 Gy per fractions with planned total of 26 more fractions. Up to today he received total of 24 Gy in 10 fractions. He seems responds to the treatment with clinical improvement. He is more comfortable while he was in the position for radiotherapy. Objective:Tracheal tube is in place. Right neck mass is more soft and smaller. Assessment: neck and mediastinal carcinoma. Plan: he will be discharged to home and want to continue his chemotherapy and radiotherapy closed to home at [facility]. We will refer him to local radiation oncology to continue his XRT. in this encounter Plan of Treatment Not on fileas of this encounter Visit Diagnoses Not on filein this encounter
--- OUTSIDE RECORDS SUMMARY | 2018-03-17 15:09 | XMS REPORT | Encounter Summary ---
Author Author [facility] Organization [facility] Address Unknown Phone Unavailable Care Team Providers Care Pest Control Chemical Technician Name Role Phone No Pcp, Na PCP Unavailable Encounter Details Date Type Department Care Team Description 02/25/2018 Pharmacy Visit [facility] [address] [place] [address] Social History Tobacco Use Types Packs/Day Years Used Date Current Every Day Smoker Smokeless Tobacco: Never Used Alcohol Use Drinks/Week oz/Week Comments No Sex Assigned at Date Recorded Not on file as of this encounter Functional Status Functional Status Response Date of Assessment Does the patient have a hearing impairment: No 01/25/2018 as of this encounter Plan of Treatment Not on fileas of this encounter Visit Diagnoses Not on filein this encounter
--- OUTSIDE RECORDS SUMMARY | 2018-03-17 15:09 | XMS REPORT | Clinical Summary ---
Author Author [facility] Organization [facility] Address Unknown Phone Unavailable Care Team Providers Care Tube And Rod Straightener Name Role Phone No Pcp, Na PCP Unavailable Source Comments Some departments are not documenting in the electronic medical record. If you do not see the information that you expected, contact Release of Information in the Health Information Management department at [phone] for further assistance in locating additional records.[facility] Allergies No Known Allergies Current Medications Prescription Sig. Disp. Refills Start End Date Status Date traMADol (ULTRAM) 50 mg Take 0.5-1 tablets by 30 tablet 0 02/14/20 Active tablet mouth every 6 hours as 18 needed. For pain. May crush and give through tube if needed clonazePAM (KLONOPIN) 0.5 Take 1/2 tablet (0.25mg) 45 tablet 0 /20/ 20 Active mg tablet in the morning and 1 18 tablet (0.5mg) in the evening. May give via tube if needed polyethylene glycol 3350 Take 1 packet by mouth 02/15/20 Active (MIRALAX) 17 g packet twice daily. May 18 administer via tube if needed senna/docusate Take 1 tablet by mouth 20 Active (SENOKOT-S) 8.6/50 mg twice daily. May crush 18 tablet and give via tube if needed LORazepam (ATIVAN) 1 mg Take 0.5-1 tablets by 60 tablet 0 20/20 Active tablet mouth every 8 hours as 18 needed for Nausea, Vomiting or Other... (anxiety). May give via tube if needed prochlorperazine maleate Take 1 tablet by mouth 45 tablet 3 02/14/20 Active (COMPAZINE) 10 mg tablet every 6 hours as needed 18 for Nausea or Vomiting. May give via tube if needed ondansetron (ZOFRAN) 8 mg Take 1 tablet by mouth 45 tablet 3 02/15/20 Active tablet every 8 hours as needed 18 for Nausea or Vomiting. May give via tube if needed simethicone (MYLICON) 80 Chew 1 tablet by mouth 30 tablet 0 02/15/20 Active mg chew tablet every 6 hours as needed 18 for Flatulence. enoxaparin (LOVENOX) 80 Inject 0.8 mL under the 60 Syringe 4 02/15/20 Active mg syrg skin twice daily. 18 nicotine (NICODERM CQ Apply 1 patch to top of 42 patch 0 02/16/20 Active STEP 1) 21 mg/day skin as directed daily 18 18 patchIndications: SMOKING for 42 days. CESSATION Active Problems Problem Noted Date Acute deep vein thrombosis (DVT) of both upper extremities (HCC) 02/10/2018 Acute and chronic respiratory failure with hypoxia (HCC) 02/07/2018 Airway compromise 02/02/2018 Anxiety 02/02/2018 Carcinoma of unknown origin (HCC) 01/31/2018 Neck mass 01/24/2018 SVC (superior vena cava obstruction) 01/24/2018 Leukocytosis 01/24/2018 Hyponatremia 01/24/2018 Tobacco abuse 01/24/2018 Diagnosis unknown 01/23/2018 Overview: Added automatically from request for surgery [id number] Encounters Date Type Specialty Care Team Description 02/25/2018 Pharmacy Visit 02/14/2018 Office Visit Radiation Therapy Pasha Wood MD Carcinoma of unknown origin (HCC) (Primary Dx) 02/14/2018 Documentation Radiation Therapy Pasha Wood MD 02/14/2018 Orders Only Radiation Therapy Dread Blanco RN Mediastinal mass (Primary Dx) 02/14/2018 [facility] Documentation Only 02/14/2018 Pharmacy Visit 02/14/2018 Documentation Radiation Therapy Pasha Wood MD 02/14/2018 Documentation Radiation Therapy Pasha Wood MD 02/13/2018 Documentation Radiation Therapy Pasha Wood MD 02/12/2018 Pharmacy Visit 02/12/2018 Documentation Radiation Therapy Pasha Wood MD 02/11/2018 [facility] Documentation Only 02/11/2018 Documentation Radiation Therapy Pasha Wood MD 02/10/2018 Documentation Radiation Therapy Pasha Wood MD 02/10/2018 Orders Only Radiation Therapy Sandhya Monroe Treatment Data 02/07/2018 Documentation Radiation Therapy Pasha Wood MD 02/06/2018 Documentation Radiation Therapy Pasha Wood MD 02/06/2018 Documentation Radiation Therapy Pasha Wood MD 02/05/2018 Nurse Only Radiation Therapy Nellie Zelaya RN 02/03/2018 Documentation Radiation Therapy Pasha Wood MD 02/02/2018 Documentation Radiation Therapy Pasha Wood MD 02/01/2018 Documentation Radiation Therapy Pasha Wood MD 01/31/2018 Office Visit Radiation Therapy Morales Lundebrg MD Neck mass (Primary Dx); Pasha Wood MD Carcinoma of unknown primary (HCC) 01/31/2018 Documentation Radiation Therapy Pasha Wood MD 01/31/2018 Orders Only Radiation Therapy Psaha Wood MD Mediastinal mass (Primary Dx) 01/24/2018 Office Visit Radiation Therapy Morales Lundberg MD Neck mass (Primary Dx) [facility] - [facility] Carlos Anne, 02/14/2018 Miguel Shipley MD Dwyer, Timothy, MD Simpson, Steven, MD Albakour, MD Yeimi Braga, LatishaPATRICK Kapil, MD Chia, Jessica, MD Diederich, Emily R, MD Stevens, Damien R, MD 01/24/2018 Anesthesia Zaida Horan, SHIPYARD LABORER Event 01/24/2018 Procedure Pass 01/24/2018 Surgery Jorge Neff MD TRACHEOSTOMY 01/23/2018 Hospital Radiology Encounter 01/23/2018 Hospital Radiology Encounter 01/23/2018 Hospital Radiology Encounter 01/23/2018 Hospital Radiology Encounter from Last 3 Months Family History Medical History Relation Name Comments Cancer Father Relation Name Status Comments Father Social History Tobacco Use Types Packs/Day Years Used Date Current Every Day Smoker Smokeless Tobacco: Never Used Alcohol Use Drinks/Week oz/Week Comments No Sex Assigned at Date Recorded Not on file Last Filed Vital Signs Vital Sign Reading Time Taken Blood Pressure 108/60 02/14/2018 10:00 AM CDT Pulse 115 02/14/2018 10:00 AM CDT Temperature 37.2 C (98.9 F) 02/14/2018 10:00 AM CDT Respiratory Rate - - Oxygen Saturation 95% 02/14/2018 10:00 AM CDT Inhaled Oxygen - - Concentration Weight 72.5 kg (159 lb 13.3 oz) 02/14/2018 5:31 AM CDT Height 182.9 cm (6') 02/06/2018 2:36 PM CDT Body Mass Index 21.68 02/14/2018 5:31 AM CDT Plan of Treatment Health Maintenance Due Date Last Done Comments PHYSICAL (COMPREHENSIVE) 1983 EXAM PERTUSSIS VACCINE 1987 HIV SCREENING 1991 TETANUS VACCINE 1993 INFLUENZA VACCINE 07/28/2018 Implants Implanted Type Area Ultra Sound Technician Device Expiration Model / Identifier Date Serial / Lot Port Implantable 8 Float Point Unit Left: CR BARD:ACCESS [id number] 11/27/2018 [id number] / [employer]om Intermediate - Sna Chest Wall SYS [id number] NA / Implanted: Qty: 1 on 02/03/2018 by [id number] Jerzy Wilkinson MD Explanted Type Area Ultra Sound Technician Device Expiration Model / Identifier Date Serial / Lot Port Implantable 8 Float Point Unit CR BARD:ACCESS [id number] / [employer]om Intermediate - Sna SYS [id number] NA / Explanted: Qty: 1 on 02/03/2018 [id number] Procedures Procedure Name Priority Date/Time Associated Diagnosis Comments TELEMETRY STRIPS-SCAN 02/22/2018 Results for this 10:03 AM CDT procedure are in the results section. ECG-SCAN 02/22/2018 Results for this 9:42 AM CDT procedure are in the results section. ECG-SCAN 02/17/2018 Results for this 1:25 PM CDT procedure are in the results section. RAD ONC TREATMENT Routine 02/14/2018 Results for this INFORMATION 8:16 AM CDT procedure are in the results section. RAD ONC TREATMENT Routine 02/13/2018 Results for this INFORMATION 8:33 AM CDT procedure are in the results section. RAD ONC TREATMENT Routine 02/12/2018 Results for this INFORMATION 9:40 AM CDT procedure are in the results section. RAD ONC TREATMENT Routine 02/11/2018 Results for this INFORMATION 8:40 AM CDT procedure are in the results section. RAD ONC TREATMENT Routine 02/10/2018 Results for this INFORMATION 8:41 AM CDT procedure are in the results section. CONSULT IV THERAPY TEAM Routine 02/10/2018 6:59 AM CDT RAD ONC TREATMENT Routine 02/07/2018 Results for this INFORMATION 8:53 AM CDT procedure are in the results section. RAD ONC TREATMENT Routine 02/06/2018 Results for this INFORMATION 4:30 PM CDT procedure are in the results section. RAD ONC TREATMENT Routine 02/03/2018 Results for this INFORMATION 11:30 AM CDT procedure are in the results section. ECG-SCAN 02/02/2018 Results for this 11:55 AM CDT procedure are in the results section. RAD ONC TREATMENT Routine 02/02/2018 Results for this INFORMATION 9:19 AM CDT procedure are in the results section. RAD ONC TREATMENT Routine 02/01/2018 Results for this INFORMATION 3:00 PM CDT procedure are in the results section. ECG-SCAN 01/26/2018 Results for this 6:05 PM CDT procedure are in the results section. BRONCHOSCOPY Through 01/24/2018 Neck mass tracheostomy 12:23 PM CDT TRACHEOSTOMY 01/24/2018 Neck mass 12:23 PM CDT from Last 3 Months Results * TELEMETRY STRIPS-SCAN (02/22/2018 10:03 AM) Narrative Ordered by an unspecified provider. * ECG-SCAN (02/22/2018 9:42 AM) Narrative Ordered by an unspecified provider. * ECG-SCAN (02/17/2018 1:25 PM) Narrative Ordered by an unspecified provider. * RAD ONC TREATMENT INFORMATION (02/14/2018 8:16 AM) Component Value Ref Range Course ID C1-Neck_Mediasti First Treatment Date 02-01-2018 02:58PM Last Treatment Date 02-14-2018 08:16AM Treatment Elapsed Days 13 Reference Point ID Neck_Mediastinum Dosage Given To Date [id number] Session Dosage Given 2.48574349 Plan ID Neck_Med_I # Plan Name Generated from plan 'Neck_Med_IMRT' Fractions Treated to Date 6 Total Fractions on Plan 26 Prescribed Dose per 2 Fraction Prescription Dose 5,200 Specimen Performing Laboratory [facility] * CBC AND DIFF (02/14/2018 2:10 AM) Only the most recent of 22 results within the time period is included. Component Value Ref Range White Blood Cells 0.6 (LL)Comment: Value noted, value unchanged 4.5 - 11.0 K/UL RBC 3.03 (L) 4.4 - 5.5 M/UL Hemoglobin 9.2 (L) 13.5 - 16.5 GM/DL Hematocrit 26.3 (L) 40 - 50 % MCV 86.6 80 - 100 FL MCH 30.3 26 - 34 PG MCHC 35.0 32.0 - 36.0 G/DL RDW 12.4 11 - 15 % Platelet Count 82 (L) 150 - 400 K/UL MPV 8.0 7 - 11 FL Segmented Neutrophils 67 41 - 77 % Lymphocytes 27 24 - 44 % Monocytes 3 (L) 4 - 12 % Eosinophil 2 0 - 5 % Basophil 1 0 - 2 % ANISO PRESENT Platelet Estimate MOD DEC Absolute Neutrophil Count 0.34 (L) 1.8 - 7.0 K/UL Manual Specimen Performing Laboratory [facility] [address] [place] [address] * PHOSPHORUS (02/14/2018 2:10 AM) Only the most recent of 18 results within the time period is included. Component Value Ref Range Phosphorus 2.8 2.0 - 4.0 MG/DL Specimen Performing Laboratory [facility] [address] [place] [address] * MAGNESIUM (02/14/2018 2:10 AM) Only the most recent of 18 results within the time period is included. Component Value Ref Range Magnesium 1.7 1.6 - 2.6 mg/dL Specimen Performing Laboratory [facility] [address] [place] [address] * COMPREHENSIVE METABOLIC PANEL (02/14/2018 2:10 AM) Only the most recent of 24 results within the time period is included. Component Value Ref Range Sodium 132 (L) 137 - 147 MMOL/L Potassium 3.7 3.5 - 5.1 MMOL/L Chloride 100 98 - 110 MMOL/L Glucose 96 70 - 100 MG/DL Blood Urea Nitrogen 16 7 - 25 MG/DL Creatinine 0.66 0.4 - 1.24 MG/DL Calcium 8.5 8.5 - 10.6 MG/DL Total Protein 6.0 6.0 - 8.0 G/DL Total Bilirubin 0.4 0.3 - 1.2 MG/DL Albumin 2.9 (L) 3.5 - 5.0 G/DL Alk Phosphatase 85 25 - 110 U/L AST (SGOT) 23 7 - 40 U/L CO2 25 21 - 30 MMOL/L ALT (SGPT) 68 (H) 7 - 56 U/L Anion Gap 7 3 - 12 eGFR Non >60 >60 mL/min Comment: The eGFR is not validated for use in drug dosing adjustments.Continue to use estimated creatinine clearance per dosing reference text.Please contact the Clinical Pharmacist for questions. eGFR >60 >60 mL/min Comment: The eGFR is not validated for use in drug dosing adjustments.Continue to use estimated creatinine clearance per dosing reference text.Please contact the Clinical Pharmacist for questions. Specimen Performing Laboratory [facility] [address] [place] [address] * CBC (02/13/2018 2:30 PM) Only the most recent of 4 results within the time period is included. Component Value Ref Range White Blood Cells 0.8 (LL) 4.5 - 11.0 K/UL Comment: Critical Result WBC:Called to LAN Sampson at: 15:02:14 by: ASPEN Read back by: LAN Sampson RBC 3.16 (L) 4.4 - 5.5 M/UL Hemoglobin 9.5 (L) 13.5 - 16.5 GM/DL Hematocrit 27.4 (L) 40 - 50 % MCV 86.8 80 - 100 FL MCH 30.1 26 - 34 PG MCHC 34.7 32.0 - 36.0 G/DL RDW 12.8 11 - 15 % Platelet Count 67 (L) 150 - 400 K/UL MPV 7.3 7 - 11 FL Specimen Performing Laboratory [facility] [address] [place] [address] * RAD ONC TREATMENT INFORMATION (02/13/2018 8:33 AM) Component Value Ref Range Course ID C1-Neck_Mediasti First Treatment Date 02-01-2018 02:58PM Last Treatment Date 02-13-2018 08:33AM Treatment Elapsed Days 12 Reference Point ID Neck_Mediastinum Dosage Given To Date 22.6850893 Session Dosage Given 2.68593096 Plan ID Neck_Med_I # Plan Name Generated from plan 'Neck_Med_IMRT' Fractions Treated to Date 5 Total Fractions on Plan 26 Prescribed Dose per 2 Fraction Prescription Dose 5,200 Specimen Performing Laboratory RAD ONC TREATMENT * RAD ONC TREATMENT INFORMATION (02/12/2018 9:40 AM) Component Value Ref Range Course ID C1-Neck_Mediasti First Treatment Date 02-01-2018 02:58PM Last Treatment Date 02-12-2018 09:40AM Treatment Elapsed Days 11 Reference Point ID Neck_Mediastinum Dosage Given To Date 20.69497953 Session Dosage Given [id number] Plan ID Neck_Med_I # Plan Name Generated from plan 'Neck_Med_IMRT' Fractions Treated to Date 4 Total Fractions on Plan 26 Prescribed Dose per 2 Fraction Prescription Dose 5,200 Specimen Performing Laboratory [facility] * CULTURE-URINE W/SENSITIVITY (02/12/2018 4:45 AM) Only the most recent of 2 results within the time period is included. Component Value Ref Range Battery Name URINE CULTURE Specimen Description URINE Special Requests NONE Culture NO GROWTH Report Status FINAL 02/13/2018 Specimen Performing Laboratory Urine [facility] [address] [place] [address] * CULTURE-BLOOD W/SENSITIVITY (02/11/2018 2:10 PM) Only the most recent of 6 results within the time period is included. Component Value Ref Range Battery Name BLOOD CULTURE Specimen Description BLOOD LEFT ANTECUBITAL Special Requests NONE Culture NO GROWTH 5 DAYS Report Status FINAL 02/17/2018 Specimen Performing Laboratory [facility] [address] [place] [address] * RAD ONC TREATMENT INFORMATION (02/11/2018 8:40 AM) Component Value Ref Range Course ID C1-Neck_Mediasti First Treatment Date 02-01-2018 02:58PM Last Treatment Date 02-11-2018 08:40AM Treatment Elapsed Days 10 Reference Point ID Neck_Mediastinum Dosage Given To Date 18.98475415 Session Dosage Given 2.91797022 Plan ID Neck_Med_I # Plan Name Generated from plan 'Neck_Med_IMRT' Fractions Treated to Date 3 Total Fractions on Plan 26 Prescribed Dose per 2 Fraction Prescription Dose 5,200 Specimen Performing Laboratory [facility] * SWALLOW MOTION SERIES (02/10/2018 11:55 AM) Specimen Performing Laboratory [facility] RAD RESULTS Impressions 1. Single instance of aspiration with thin barium. 2. Mild to moderate oropharyngeal dysphasia. 3. Please see separately dictated report from the Department of Speech Pathology for further description. By my electronic signature, I attest that I have personally reviewed the images for this examination and formulated the interpretations and opinions expressed in this report Finalized by Dhaval Mcleod M.D. on 02/10/2018 1:56 PM. Dictated by Tequila Maher M.D. on 02/10/2018 1:04 PM. Narrative SWALLOW MOTION SERIES CLINICAL HISTORY: 42-year-old male, dysphagia TECHNIQUE: The procedure was performed in conjunction with members of the department of speech pathology. Video fluoroscopy was performed during swallowing of various consistencies of barium. The patient tolerated the procedure well and left the department in stable condition. TOTAL FLUOROSCOPY TIME: 108 seconds FINDINGS: Single instance of aspiration with thin barium. No evidence of additional laryngeal penetration or aspiration with all tested consistencies of barium. Procedure Note Interface, Radiant Results - 02/10/2018 1:59 PM CDT SWALLOW MOTION SERIES CLINICAL HISTORY: 42-year-old male, dysphagia TECHNIQUE: The procedure was performed in conjunction with members of the department of speech pathology. Video fluoroscopy was performed during swallowing of various consistencies of barium. The patient tolerated the procedure well and left the department in stable condition. TOTAL FLUOROSCOPY TIME: 108 seconds FINDINGS: Single instance of aspiration with thin barium. No evidence of additional laryngeal penetration or aspiration with all tested consistencies of barium. IMPRESSION 1. Single instance of aspiration with thin barium. 2. Mild to moderate oropharyngeal dysphasia. 3. Please see separately dictated report from the Department of Speech Pathology for further description. By my electronic signature, I attest that I have personally reviewed the images for this examination and formulated the interpretations and opinions expressed in this report Finalized by Dhaval Mcleod M.D. on 02/10/2018 1:56 PM. Dictated by Tequila Maher M.D. on 02/10/2018 1:04 PM. * RAD ONC TREATMENT INFORMATION (02/10/2018 8:41 AM) Component Value Ref Range Course ID C1-Neck_Mediasti First Treatment Date 02-01-2018 02:58PM Last Treatment Date 02-10-2018 08:41AM Treatment Elapsed Days 9 Reference Point ID Neck_Mediastinum Dosage Given To Date 16.00042403 Session Dosage Given 2.86646001 Plan ID Neck_Med_I # Plan Name Generated from plan 'Neck_Med_IMRT' Fractions Treated to Date 2 Total Fractions on Plan 26 Prescribed Dose per 2 Fraction Prescription Dose 5,200 Specimen Performing Laboratory [facility] * VRE SCREEN (02/10/2018 1:55 AM) Only the most recent of 2 results within the time period is included. Component Value Ref Range Battery Name VRE SCREEN Specimen Description PERIRECTAL SWAB Special Requests NONE Culture NO VRE ISOLATED Report Status FINAL 02/11/2018 Specimen Performing Laboratory Perirectal Swab [facility] [address] [place] [address] * ABDOMEN AP ONLY (02/08/2018 10:07 AM) Only the most recent of 3 results within the time period is included. Specimen Performing Laboratory [facility] RESULTS Impressions Nonobstructive bowel gas pattern. Approved by Shen Ahuja M.D. on 02/08/2018 12:05 PM By my electronic signature, I attest that I have personally reviewed the images for this examination and formulated the interpretations and opinions expressed in this report Finalized by Mumtaz Rios M.D. on 02/08/2018 12:29 PM. Dictated by Shen Ahuja M.D. on 02/08/2018 11:21 AM. Narrative Procedure: ABDOMEN AP ONLY Clinical Indication: Abdominal pain. Confirm PEG placement. Comparison: Abdominal radiograph January 30, 2018. FINDINGS: Portable supine AP abdominal radiographs were obtained. Interval removal of enteric tube. PEG tube overlies the mid left abdomen in the region of the gastric body. Bowel gas pattern is nonobstructive. Partial visualization of small right pleural effusion. Procedure Note Interface, Radiant Results - 02/08/2018 12:32 PM CDT Procedure: ABDOMEN AP ONLY Clinical Indication: Abdominal pain. Confirm PEG placement. Comparison: Abdominal radiograph January 30, 2018. FINDINGS: Portable supine AP abdominal radiographs were obtained. Interval removal of enteric tube. PEG tube overlies the mid left abdomen in the region of the gastric body. Bowel gas pattern is nonobstructive. Partial visualization of small right pleural effusion. IMPRESSION Nonobstructive bowel gas pattern. Approved by Shen Ahuja M.D. on 02/08/2018 12:05 PM By my electronic signature, I attest that I have personally reviewed the images for this examination and formulated the interpretations and opinions expressed in this report Finalized by Mumtaz Rios M.D. on 02/08/2018 12:29 PM. Dictated by Shen Ahuja M.D. on 02/08/2018 11:21 AM. * CHEST SINGLE VIEW (02/08/2018 10:06 AM) Only the most recent of 3 results within the time period is included. Specimen Performing Laboratory [facility] RAD RESULTS Impressions 1. Small left pleural effusion with adjacent consolidation likely atelectasis. 2. Prominence of the mediastinum and katia compatible with known lymphadenopathy. Approved by Shen Ahuja M.D. on 02/08/2018 11:16 AM By my electronic signature, I attest that I have personally reviewed the images for this examination and formulated the interpretations and opinions expressed in this report Finalized by Mumtaz Rios M.D. on 02/08/2018 12:29 PM. Dictated by Shen Ahuja M.D. on 02/08/2018 10:17 AM. Narrative Procedure: CHEST SINGLE VIEW Clinical Indication: Lung cancer. Pleural effusion. Comparison: Chest radiograph February 06, 2018. FINDINGS: Portable upright AP chest radiographs were obtained. Tracheostomy tube and left subclavian chest port remain in place. Cardiac silhouette is normal in size. Small right pleural effusion with right basilar consolidation likely atelectasis. Prominence of the mediastinum and katia compatible with known lymphadenopathy. Procedure Note Interface, Radiant Results - 02/08/2018 12:32 PM CDT Procedure: CHEST SINGLE VIEW Clinical Indication: Lung cancer. Pleural effusion. Comparison: Chest radiograph February 06, 2018. FINDINGS: Portable upright AP chest radiographs were obtained. Tracheostomy tube and left subclavian chest port remain in place. Cardiac silhouette is normal in size. Small right pleural effusion with right basilar consolidation likely atelectasis. Prominence of the mediastinum and katia compatible with known lymphadenopathy. IMPRESSION 1. Small left pleural effusion with adjacent consolidation likely atelectasis. 2. Prominence of the mediastinum and katia compatible with known lymphadenopathy. Approved by Shen Ahuja M.D. on 02/08/2018 11:16 AM By my electronic signature, I attest that I have personally reviewed the images for this examination and formulated the interpretations and opinions expressed in this report Finalized by Mumtaz Rios M.D. on 02/08/2018 12:29 PM. Dictated by Shen Ahuja M.D. on 02/08/2018 10:17 AM. * URIC ACID (02/08/2018 3:35 AM) Only the most recent of 3 results within the time period is included. Component Value Ref Range Uric Acid 4.8 4.0 - 8.0 MG/DL Specimen Performing Laboratory [facility] [address] [place] [address] * SODIUM-URINE RANDOM (02/07/2018 11:56 AM) Only the most recent of 2 results within the time period is included. Component Value Ref Range Sodium, Random 35 MMOL/L Specimen Performing Laboratory Urine [facility] [address] [place] [address] * CREATININE-URINE RANDOM (02/07/2018 11:56 AM) Only the most recent of 2 results within the time period is included. Component Value Ref Range Creatinine, Random 79 MG/DL Specimen Performing Laboratory U[facility] [address] [place] [address] * RAD ONC TREATMENT INFORMATION (02/07/2018 8:53 AM) Component Value Ref Range Course ID C1-Neck_Mediasti First Treatment Date 02-01-2018 02:58PM Last Treatment Date 02-07-2018 08:53AM Treatment Elapsed Days 6 Reference Point ID Neck_Mediastinum Dosage Given To Date 14.98168617 Session Dosage Given 2.10346117 Plan ID Neck_Med_I # Plan Name Generated from plan 'Neck_Med_IMRT' Fractions Treated to Date 1 Total Fractions on Plan 26 Prescribed Dose per 2 Fraction Prescription Dose 5,200 Specimen Performing Laboratory RAD ONC TREATMENT * PROTIME INR (PT) (02/07/2018 4:40 AM) Only the most recent of 4 results within the time period is included. Component Value Ref Range INR 1.6 (H) 0.8 - 1.2 Specimen Performing Laboratory [facility] [address] [place] [address] * RAD ONC TREATMENT INFORMATION (02/06/2018 4:30 PM) Component Value Ref Range Course ID C1-Neck_Mediasti First Treatment Date 02-01-2018 02:58PM Last Treatment Date 02-06-2018 04:30PM Treatment Elapsed Days 5 Reference Point ID Neck_Mediastinum Dosage Given To Date 12 Session Dosage Given 3 Plan ID Neck_Mediast1:1 Plan Name Neck_Mediastinum Fractions Treated to Date 1 Total Fractions on Plan 7 Prescribed Dose per 3 Fraction Prescription Dose 2,100 Specimen Performing Laboratory RAD ONC TREATMENT * 2-D + DOPPLER ECHOCARDIOGRAM (02/06/2018 2:36 PM) Component Value Ref Range TDI e' 0.09 m/s IVS 0.97 0.6 - 1.0 cm LVIDD 3.24 4.2 - 5.8 cm LVIDS 2.03 2.5 - 4.0 cm PW 0.87 0.6 - 1.0 cm LA size 1.79 3.0 - 4.0 cm and a peak gradient of 4.84 mmHg AV peak velocity 1.10 m/s MV Peak A Oumar 0.96 m/s MV Peak E Oumar PW 0.74 m/s Right Heart Systolic 1.39 >1.7 cm Mmode TAPSE Ao root annulus 2.29 1.4 - 2.6 cm Sinus 3.46 3.1 - 3.7 cm STJ 3.82 1.7 - 3.4 cm BSA 2.01 m2 FS 37.35 28 - 44 % EF 63.50 % E/A ratio 0.77 E/E' ratio 8.22 CV 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 The LV systolic function appears to be normal. Cardiac chambers are normal sized. Small pericardial effusion noted. No significant doppler abnormality is seen. There is no old study available for comparison. * US DOPPLER VENOUS W EXTRM BILAT (02/06/2018 1:45 PM) Specimen Performing Laboratory Bilateral [facility] RAD RESULTS Impressions 1.Acute deep vein thrombus (DVT) within the right subclavian and axillary veins (occlusive in the axillary vein and partially occlusive in the subclavian vein). This is contiguous with acute, occlusive superficial thrombus in the right basilic vein. 2.Mixed echogenicity DVT in the right internal jugular and upper innominate veins (occlusive in the internal jugular vein and partially occlusive in the innominate vein). The appearance favors more subacute thrombus. 3.Partially occlusive thrombus surrounding the port catheter in the medial left subclavian vein, which is of uncertain chronicity. Finalized by Saundra Anne M.D. on 02/06/2018 3:21 PM. Dictated by Saundra Anne M.D. on 02/06/2018 3:07 PM. Narrative Bilateral upper extremity ultrasound with Doppler Clinical Indication: Male, 42 years; bilateral upper extremity swelling Technique: Multiple grayscale sonographic images were obtained of both upper extremities with additional color and spectral Doppler acquisitions. Comparison: None Findings: Right: There is mixed echogenicity, occlusive thrombus within the dilated right internal jugular vein, extending into the upper right innominate vein. The medial subclavian vein is patent and normal in caliber. However, there is partially occlusive, hypoechoic thrombus within the dilated mid-lateral subclavian vein. Acute appearing, occlusive thrombus is present within the dilated right axillary and basilic veins. Visualized portions of the brachial veins and cephalic vein are patent and fully compressible. Visualized portions of the radial and ulnar veins are compressible. Left: The left internal jugular vein is patent and fully compressible with normal transmitted pulsatility. A left subclavian port is in place. There is a small amount of smooth, partially occlusive thrombus surrounding the port catheter within the medial left subclavian vein. This is of uncertain chronicity, though portions demonstrate a smooth, echogenic capsule suggesting at least subacute or possibly more chronic thrombus. Visualized portions of the innominate vein appear patent without evidence of thrombus. The left axillary, brachial, basilic and cephalic veins demonstrate no filling defect and are fully compressible. Visualized portions of the radial and ulnar veins are compressible. No soft tissue masses or fluid collections are identified in visualized portions of the arm. Procedure Note Interface, Radiant Results - 02/06/2018 3:24 PM CDT Bilateral upper extremity ultrasound with Doppler Clinical Indication: Male, 42 years; bilateral upper extremity swelling Technique: Multiple grayscale sonographic images were obtained of both upper extremities with additional color and spectral Doppler acquisitions. Comparison: None Findings: Right: There is mixed echogenicity, occlusive thrombus within the dilated right internal jugular vein, extending into the upper right innominate vein. The medial subclavian vein is patent and normal in caliber. However, there is partially occlusive, hypoechoic thrombus within the dilated mid-lateral subclavian vein. Acute appearing, occlusive thrombus is present within the dilated right axillary and basilic veins. Visualized portions of the brachial veins and cephalic vein are patent and fully compressible. Visualized portions of the radial and ulnar veins are compressible. Left: The left internal jugular vein is patent and fully compressible with normal transmitted pulsatility. A left subclavian port is in place. There is a small amount of smooth, partially occlusive thrombus surrounding the port catheter within the medial left subclavian vein. This is of uncertain chronicity, though portions demonstrate a smooth, echogenic capsule suggesting at least subacute or possibly more chronic thrombus. Visualized portions of the innominate vein appear patent without evidence of thrombus. The left axillary, brachial, basilic and cephalic veins demonstrate no filling defect and are fully compressible. Visualized portions of the radial and ulnar veins are compressible. No soft tissue masses or fluid collections are identified in visualized portions of the arm. IMPRESSION 1. Acute deep vein thrombus (DVT) within the right subclavian and axillary veins (occlusive in the axillary vein and partially occlusive in the subclavian vein). This is contiguous with acute, occlusive superficial thrombus in the right basilic vein. 2. Mixed echogenicity DVT in the right internal jugular and upper innominate veins (occlusive in the internal jugular vein and partially occlusive in the innominate vein). The appearance favors more subacute thrombus. 3. Partially occlusive thrombus surrounding the port catheter in the medial left subclavian vein, which is of uncertain chronicity. Finalized by Saundra Anne M.D. on 02/06/2018 3:21 PM. Dictated by Saundra Anne M.D. on 02/06/2018 3:07 PM. * BLOOD GASES, ARTERIAL (02/06/2018 5:56 AM) Component Value Ref Range pH-Arterial 7.44 7.35 - 7.45 pCO2-Arterial 43 35 - 45 MMHG pO2-Arterial 63 (L) 80 - 100 MMHG Base Excess-Arterial 4.3 MMOL/L O2 Sat-Arterial 92.0 (L) 95 - 99 % Zxseawcqeah-BFP-Dha 28.1 (H) 21 - 28 MMOL/L Specimen Performing Laboratory Blood, arterial - Blood MAIN LAB [address] [place] [id number] * STREPTOCOCCUS PNEUMO AG, URINE (02/06/2018 5:30 AM) Component Value Ref Range Battery Name STREP PNEUMO AG, UR Specimen Description URINE Special Requests NONE Antigen NEGATIVE Report Status FINAL 02/06/2018 Specimen Performing Laboratory Urine MAIN LAB [address] [place] [address] * LEGIONELLA ANTIGEN URINE,RAN (02/06/2018 5:30 AM) Component Value Ref Range Battery Name LEGIONELLA URINE ANTIGEN Specimen Description URINE Special Requests NONE Antigen NEGATIVE Report Status FINAL 02/06/2018 Specimen Performing Laboratory Urine MAIN LAB [address] [place] [id number] * GRAM STAIN (02/06/2018 4:15 AM) Component Value Ref Range Battery Name GRAM STAIN Specimen Description TRACHEAL ASPIRATE Special Requests NONE Gram Stain GREATER THAN 25/LPF NEUTROPHILS 10-25/LPF SQUAMOUS EPITHELIAL CELLS MANY MIXED BACTERIA Report Status FINAL 02/06/2018 Specimen Performing Laboratory Tracheal Aspirate MAIN LAB [address] [place] [address] * CULTURE-RESP,LOWER W/SENSITIVITY (02/06/2018 4:15 AM) Component Value Ref Range Battery Name LOWER RESP CULTURE Specimen Description TRACHEAL ASPIRATE Special Requests NONE Direct Gram Stain GREATER THAN 25/LPF NEUTROPHILS 10-25/LPF SQUAMOUS EPITHELIAL CELLS MANY MIXED BACTERIA Culture Heavy growth NORMAL OROPHARYNGEAL WHIT Report Status FINAL 02/08/2018 Specimen Performing Laboratory Tracheal Aspirate MAIN LAB [address] [place], [place] [id number] * PROCALCITONIN (02/06/2018 3:58 AM) Only the most recent of 2 results within the time period is included. Component Value Ref Range Procalcitonin 0.25 (H) <0.10 NG/ML Specimen Performing Laboratory Blood MAIN LAB [address] [place] [address] * LACTIC ACID (BG - RAPID LACTATE) (02/06/2018 3:58 AM) Only the most recent of 2 results within the time period is included. Component Value Ref Range Lactic Acid,BG 1.4 0.5 - 2.0 MMOL/L Specimen Performing Laboratory Blood MAIN LAB [address] [place], [place] [id number] * TROPONIN-I (02/06/2018 3:58 AM) Only the most recent of 2 results within the time period is included. Component Value Ref Range Troponin-I 0.03 0.0 - 0.05 NG/ML Specimen Performing Laboratory Blood MAIN LAB [address] [place] [address] * BNP (B-TYPE NATRIURETIC PEPTI) (02/06/2018 3:58 AM) Component Value Ref Range B Type Natriuretic 153.0 (H) 0 - 100 PG/ML Peptide Specimen Performing Laboratory Blood MAIN LAB [address] [place], [place] [id number] * POC BLOOD GAS ARTERIAL (02/06/2018 3:27 AM) Only the most recent of 2 results within the time period is included. Component Value Ref Range PH-ART-POC 7.50 (H) 7.35 - 7.45 PVU4-ZGF-NEX 37 35 - 45 MMHG PO2-ART-POC 55 (L) 80 - 100 MMHG Base Ex-ART-POC 6.0 MMOL/L O2 Sat-ART-POC 91.0 (L) 95 - 99 % Tiibgdjbokn-WIS-STH 28.7 (H) 21 - 28 MMOL/L Specimen Performing Laboratory [facility] [address] [place], [place] [id number] * POC SODIUM (02/06/2018 3:27 AM) Component Value Ref Range Sodium-POC 138 137 - 147 MMOL/L Specimen Performing Laboratory [facility] [address] [place], [place] [id number] * POC POTASSIUM (02/06/2018 3:27 AM) Component Value Ref Range Potassium-POC 4.3 3.5 - 5.1 MMOL/L Specimen Performing Laboratory [facility] [address] [place], [place] [id number] * POC IONIZED CALCIUM (02/06/2018 3:27 AM) Component Value Ref Range Ionized Calcium-POC 1.23 1.0 - 1.3 MMOL/L Specimen Performing Laboratory [facility] [address] [place] [address] * POC HEMATOCRIT (02/06/2018 3:27 AM) Component Value Ref Range Hemoglobin POC 13.6 13.5 - 16.5 GM/DL Hematocrit POC 40.0 40 - 50 % Specimen Performing Laboratory [facility] [address] [place] [address] * POC GLUCOSE (02/06/2018 3:21 AM) Component Value Ref Range Glucose, POC 105 (H) 70 - 100 MG/DL Specimen Performing Laboratory [facility] [address] [place] [address] * BLOOD BANK SAMPLE HOLD (02/06/2018 3:12 AM) Component Value Ref Range BB Sample hold IN LAB [place] [address] * PTT (APTT) (02/06/2018 3:12 AM) Only the most recent of 2 results within the time period is included. Component Value Ref Range APTT 28.7 21.0 - 39.0 SEC Specimen Performing Laboratory Blood [facility] [address] [place] [address] * IR GASTROSTOMY (02/05/2018 8:23 AM) Specimen Performing Laboratory RAD RESULTS Impressions 1.Successful placement of gastrostomy tube as described above. Hong Paniagua M.D, the attending radiologist, was present for the critical and torres portions of the procedure with a midlevel, resident, and/or fellow participating.Overlapping portions were non torres and I was immediately available.I interpret the critical and torres portion of this procedure to have been gastrostomy tube placement. @TT Approved by Billy Noel M.D. on 02/06/2018 8:23 AM By my electronic signature, I attest that I have personally reviewed the images for this examination and formulated the interpretations and opinions expressed in this report Finalized by HONG CAPPS on 02/06/2018 10:30 AM. Dictated by Billy Noel M.D. on 8:22 AM. Narrative GASTROSTOMY TUBE PLACEMENT UNDER ULTRASOUND AND FLUOROSCOPIC GUIDANCE INDICATION: Oral dysphagia. Neck mass. OPERATING PHYSICIAN: Dr. Hong Capps and Dr. Doretha Noel. MEDICATIONS:I was personally responsible for the administration of moderate sedation services during the procedure performed and I confirm requirements described in CPT section on moderate sedation were followed, including the use of an independent trained observer who had no other duties during the procedure.The total supervised sedation time was 17 minutes.See nursing log for complete details; the drugs utilized were: 1. 2 mg of Versed intravenously 2. 100 mcg of fentanyl intravenously 3. 1 mg of glucagon intravenously CONTRAST:50 mL of Isovue 300 CATHETER: 18 Ecuadorean Ross G tube COMPLICATIONS: None TECHNIQUE/FINDINGS: Following written informed consent, the patient's mid and left upper abdomen was prepped and draped in the usual sterile fashion. The patient was given glucagon IV, and the stomach was inflated with air via a previously placed nasogastric tube.The stomach was visualized fluoroscopically in multiple projections to exclude the presence of overlying bowel.Ultrasound was used as an adjuvant tool for percutaneous guidance to identify and minimize risk to the left lobe of the liver. The skin and subcutaneous tissues overlying the stomach were infiltrated with 2 % Lidocaine without lidocaine. Stay suture needles were advanced into the stomach, and intragastric position was confirmed by injection of contrast into the stomach. Stay sutures were placed to tack the anterior wall of the stomach against the anterior abdominal wall.A dermatotomy was then made between the stay sutures, and a needle was inserted into the stomach through which an Amplatz stiff wire was passed.Serial dilators were passed over the wire into the stomach.A 18 Ecu[place]orean Ross gastrostomy tube was placed over the wire and into the stomach.Intraluminal position was again confirmed with the injection of contrast, and the gastrostomy tube balloon was inflated with 10 mL of sterile water.The patient tolerated the procedure well, without complication. Procedure Note Interface, Radiant Results - 02/06/2018 10:33 AM CDT GASTROSTOMY TUBE PLACEMENT UNDER ULTRASOUND AND FLUOROSCOPIC GUIDANCE INDICATION: Oral dysphagia. Neck mass. OPERATING PHYSICIAN: Dr. Hong Capps and Dr. Doretha Noel. MEDICATIONS: I was personally responsible for the administration of moderate sedation services during the procedure performed and I confirm requirements described in CPT section on moderate sedation were followed, including the use of an independent trained observer who had no other duties during the procedure. The total supervised sedation time was 17 minutes. See nursing log for complete details; the drugs utilized were: 1. 2 mg of Versed intravenously 2. 100 mcg of fentanyl intravenously 3. 1 mg of glucagon intravenously CONTRAST: 50 mL of Isovue 300 CATHETER: 18 Ecu[place] Ross G tube COMPLICATIONS: None TECHNIQUE/FINDINGS: Following written informed consent, the patient's mid and left upper abdomen was prepped and draped in the usual sterile fashion. The patient was given glucagon IV, and the stomach was inflated with air via a previously placed nasogastric tube. The stomach was visualized fluoroscopically in multiple projections to exclude the presence of overlying bowel. Ultrasound was used as an adjuvant tool for percutaneous guidance to identify and minimize risk to the left lobe of the liver. The skin and subcutaneous tissues overlying the stomach were infiltrated with 2 % Lidocaine without lidocaine. Stay suture needles were advanced into the stomach, and intragastric position was confirmed by injection of contrast into the stomach. Stay sutures were placed to tack the anterior wall of the stomach against the anterior abdominal wall. A dermatotomy was then made between the stay sutures, and a needle was inserted into the stomach through which an Amplatz stiff wire was passed. Serial dilators were passed over the wire into the stomach. A 18 Ecu[place] Ross gastrostomy tube was placed over the wire and into the stomach. Intraluminal position was again confirmed with the injection of contrast, and the gastrostomy tube balloon was inflated with 10 mL of sterile water. The patient tolerated the procedure well, without complication. IMPRESSION 1. Successful placement of gastrostomy tube as described above. Hong Paniagua M.D, the attending radiologist, was present for the critical and torres portions of the procedure with a midlevel, resident, and/or fellow participating. Overlapping portions were non torres and I was immediately available. I interpret the critical and torres portion of this procedure to have been gastrostomy tube placement. @TT Approved by Billy Noel M.D. on 02/06/2018 8:23 AM By my electronic signature, I attest that I have personally reviewed the images for this examination and formulated the interpretations and opinions expressed in this report Finalized by HONG CAPPS on 02/06/2018 10:30 AM. Dictated by Billy Noel M.D. on 8:22 AM. * RAD ONC TREATMENT INFORMATION (02/03/2018 11:30 AM) Component Value Ref Range Course ID [id number] First Treatment Date 02-01-2018 02:58PM Last Treatment Date 02-03-2018 11:30AM Treatment Elapsed Days 2 Reference Point ID Neck_Mediastinum Dosage Given To Date 9 Session Dosage Given 3 Plan ID Neck_Mediast1 Plan Name Neck_Mediastinum Fractions Treated to Date 2 Total Fractions on Plan 2 Prescribed Dose per 3 Fraction Prescription Dose 600 Specimen Performing Laboratory [facility] RAD ONC TREATMENT * IR CENTRAL VENOUS CATHETER (02/03/2018 8:43 AM) Specimen Performing Laboratory [facility] RAD RESULTS Addenda Addendum by Jerzy Wilkinson MD on 02/04/2018 10:57 AM Finalized by Edinson Wilkinson M.D. on 02/03/2018 12:12 PM. Dictated by Edinson Wilkinson M.D. on 02/03/2018 12:02 PM.Addendum: An ultrasound image of a patent left subclavian vein was saved and sent to PACS. Finalized by Edinson Wilkinson M.D. on 02/04/2018 9:02 AM. Dictated by Edinson Wilkinson M.D. on 02/04/2018 9:02 AM.Addendum: The occluded segment of the upper SVC and innominate vein was angioplastied using a 7 mm high-pressure balloon. Finalized by Edinson Wilkinson M.D. on 02/04/2018 10:40 AM. Dictated by Edinson Wilkinson M.D. on 02/04/2018 10:39 AM. Addendum by Jerzy Wilkinson MD on 02/04/2018 9:05 AM Finalized by Edinson Wilkinson M.D. on 02/03/2018 12:12 PM. Dictated by Edinson Wilkinson M.D. on 02/03/2018 12:02 PM.Addendum: An ultrasound image of a patent left subclavian vein was saved and sent to PACS. Finalized by Edinson Wilkinson M.D. on 02/04/2018 9:02 AM. Dictated by Edinson Wilkinson M.D. on 02/04/2018 9:02 AM. Impressions 1. 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 In addition, the lower left internal jugular vein was occluded by ultrasound. 2. Successful recanalization and angioplasty of the left innominate vein and upper SVC. 3. Successful placement of a power injectable left subclavian chest port using ultrasound and fluoroscopic guidance. Narrative Thoracic venogram, subclavian vein and SVC recannulization and angioplasty, placement of left subclavian chest port Clinical history: Neck cancer, beginning chemotherapy TECHNIQUE AND FINDINGS: IJerzy M.D., the attending radiologist, was present for the procedure, personally reviewed the images, and formulated the interpretations and opinions expressed in this report. SEDATION: I was personally responsible for the administration of moderate sedation services during the procedure performed, and I confirm requirements described in CPT section on moderate sedation were followed, including the use of an independent trained observer who had no other duties during the procedure.The total supervised sedation time was 57 minutes.See nursing log for complete details; the drugs utilized were:5 mg IV Versed; 250 mcg IV Fentanyl. After informed written consent was obtained, the patient was brought to the fluoroscopy suite and placed in the supine position. The left neck and upper chest were prepped and draped in the usual sterile fashion. Ultrasound demonstrated occlusion of the lower left internal jugular vein, therefore was decided to use the subclavian vein for access. 2% lidocaine was used to anesthetize the skin and the left subclavian vein was punctured under ultrasound guidance using a 21-gauge micropuncture needle. The ultrasound demonstrated a widely patent left subclavian vein. An 018 wire was advanced centrally and a dermatotomy incision was made. The needle was exchanged for a transitional catheter. Inner portion of the catheter and the wire were removed. After an inability to advance an 035 wire, a hand-injection digital subtraction venogram was performed demonstrating occlusion of the left innominate vein and upper superior vena cava. A 5 Ecuadorean vascular sheath and Kumpe catheter were then advanced over the 035 wire. The occlusion was successfully crossed using the catheter and a stiff Glidewire. The stiff Glidewire was exchanged for an Amplatz wire. A subcutaneous pocket was created in the upper left chest using a combination of sharp and blunt dissection. A power injectable chest port was placed within the subcutaneous pocket. The catheter was advanced through the tunnel and venotomy site using a stiff Glidewire. Then the catheter was attached the chest port which was placed within the subcutaneous pocket. The pocket was irrigated with saline then the incision was closed with 2-0 Vicryl suture and Dermabond. The chest port was accessed and aspirated blood appropriately. Hand-injection digital subtraction venography demonstrated excellent position of the catheter within the distal superior vena cava near the atriocaval junction. The port was then flushed with saline. Sterile dressings were applied and the patient was taken to the recovery area in stable condition. Total radiation dose: 159 mg Contrast: 20 cc Isovue 3 out of Procedure Note Interface, Radiant Results - 02/04/2018 10:57 AM CDT Thoracic venogram, subclavian vein and SVC recannulization and angioplasty, placement of left subclavian chest port Clinical history: Neck cancer, beginning chemotherapy TECHNIQUE AND FINDINGS: IJerzy M.D., the attending radiologist, was present for the procedure, personally reviewed the images, and formulated the interpretations and opinions expressed in this report. SEDATION: I was personally responsible for the administration of moderate sedation services during the procedure performed, and I confirm requirements described in CPT section on moderate sedation were followed, including the use of an independent trained observer who had no other duties during the procedure. The total supervised sedation time was 57 minutes. See nursing log for complete details; the drugs utilized were: 5 mg IV Versed; 250 mcg IV Fentanyl. After informed written consent was obtained, the patient was brought to the fluoroscopy suite and placed in the supine position. The left neck and upper chest were prepped and draped in the usual sterile fashion. Ultrasound demonstrated occlusion of the lower left internal jugular vein, therefore was decided to use the subclavian vein for access. 2% lidocaine was used to anesthetize the skin and the left subclavian vein was punctured under ultrasound guidance using a 21-gauge micropuncture needle. The ultrasound demonstrated a widely patent left subclavian vein. An 018 wire was advanced centrally and a dermatotomy incision was made. The needle was exchanged for a transitional catheter. Inner portion of the catheter and the wire were removed. After an inability to advance an 035 wire, a hand-injection digital subtraction venogram was performed demonstrating occlusion of the left innominate vein and upper superior vena cava. A 5 Ecuadorean vascular sheath and Kumpe catheter were then advanced over the 035 wire. The occlusion was successfully crossed using the catheter and a stiff Glidewire. The stiff Glidewire was exchanged for an Amplatz wire. A subcutaneous pocket was created in the upper left chest using a combination of sharp and blunt dissection. A power injectable chest port was placed within the subcutaneous pocket. The catheter was advanced through the tunnel and venotomy site using a stiff Glidewire. Then the catheter was attached the chest port which was placed within the subcutaneous pocket. The pocket was irrigated with saline then the incision was closed with 2-0 Vicryl suture and Dermabond. The chest port was accessed and aspirated blood appropriately. Hand-injection digital subtraction venography demonstrated excellent position of the catheter within the distal superior vena cava near the atriocaval junction. The port was then flushed with saline. Sterile dressings were applied and the patient was taken to the recovery area in stable condition. Total radiation dose: 159 mg Contrast: 20 cc Isovue 3 out of IMPRESSION 1. 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 In addition, the lower left internal jugular vein was occluded by ultrasound. 2. Successful recanalization and angioplasty of the left innominate vein and upper SVC. 3. Successful placement of a power injectable left subclavian chest port using ultrasound and fluoroscopic guidance. * ECG-SCAN (02/02/2018 11:55 AM) Narrative Ordered by an unspecified provider. * RAD ONC TREATMENT INFORMATION (02/02/2018 9:19 AM) Component Value Ref Range Course ID C1-Neck_Mediasti First Treatment Date 02-01-2018 02:58PM Last Treatment Date 02-02-2018 09:19AM Treatment Elapsed Days 1 Reference Point ID Neck_Mediastinum Dosage Given To Date 6 Session Dosage Given 3 Plan ID Neck_Mediast1 Plan Name Neck_Mediastinum Fractions Treated to Date 1 Total Fractions on Plan 2 Prescribed Dose per 3 Fraction Prescription Dose 600 Specimen Performing Laboratory [facility] RAD ONC TREATMENT * RAD ONC TREATMENT INFORMATION (02/01/2018 3:00 PM) Component Value Ref Range Course ID C1-Neck_Mediasti First Treatment Date 02-01-2018 02:58PM Last Treatment Date 02-01-2018 03:00PM Treatment Elapsed Days 0 Reference Point ID Neck_Mediastinum Dosage Given To Date 3 Session Dosage Given 3 Plan ID Neck_Mediasti Plan Name Neck_Mediastinum Fractions Treated to Date 1 Total Fractions on Plan 3 Prescribed Dose per 3 Fraction Prescription Dose 900 Specimen Performing Laboratory [facility] RAD ONC TREATMENT * MISCELLANEOUS SURGICAL PATHOLOGY REFERENCE LAB TEST (01/29/2018 10:00 AM) Component Value Ref Range Test NUT BU IHC Reference Lab PERFORMED AT [facility] Results Ref Lab RESULTS WILL BW REPORTED IN AN ADDENDUM Specimen Mail SLIDES [id number] Specimen Performing Laboratory REFERENCE LAB * ECG-SCAN (01/26/2018 6:05 PM) Narrative Ordered by an unspecified provider. * CORTISOL,RANDOM (01/26/2018 5:50 AM) Component Value Ref Range Cortisol, Random 26.6 (H) 5.0 - 20.0 MCG/DL Specimen Performing Laboratory Blood MAIN LAB [address] [place] [address] * BLOOD GASES, PERIPHERAL VENOUS (01/25/2018 6:20 PM) Component Value Ref Range pH-Venous 7.37 7.30 - 7.40 PCO2-Venous 41 36 - 50 MMHG PO2-Venous 58 (H) 33 - 48 MMHG Base Deficit-Venous 1.4 MMOL/L O2 Sat-Venous 87.3 (H) 55 - 71 % Xazmilinujj-WRH-Dqr 23.0 MMOL/L Specimen Performing Laboratory Blood, venous - Blood [facility] MAIN [facility] [address] [place] [address] * SURGICAL PATHOLOGY (01/24/2018 6:05 PM) Component Value Ref Range PATHOLOGY REPORT [facility] [email or web address] Department of Pathology and Laboratory Medicine [address] [place] [address] Surgical Pathology Office:[phone]:[phone] SURGICAL PATHOLOGY REPORT NAME: DAVID HARRIS SURG PATH #: [id number] MR #: [id number] SPECIMEN CLASS: SR BILLING #: [id number] ALT ID #:LOCATION: [id number] DATE OF PROCEDURE: 01/24/2018 AGE:42 SEX: M DATE RECEIVED: 01/24/2018 : 1975TIME RECEIVED:18:05 PHYSICIAN: LEXI VARELA DATE OF REPORT: 01/29/2018 COPY TO:DATE OF PRINTIN02/04/2018 Procedures/Addenda Addendum Date Ordered: 01/30/2018 Status:Signed Out Date Complete: 01/30/2018 By: ALTAGRACIA Garcia Date Reported: 01/30/2018 Addendum Diagnosis Additional immunostains performed on block A2 demonstrate that the tumor cells show very focal weak staining with MOC31 and are negative for calretinin, supporting the original diagnosis remains unchanged. ALTAGRACIA Garcia Addendum Date Ordered: 02/04/2018 Status:Signed Out Date Complete: 02/04/2018 By: ALTAGRACIA Garcia Date Reported: 02/04/2018 Addendum Diagnosis An immunostain for NUT performed on block A2 at [facility] is negative in the tumor cells. ALTAGRACIA Garcia ################################################## ###################### Final Diagnosis: A. Adipose tissue, "right neck mass", biopsy: Poorly differentiated malignant neoplasm with necrosis, most compatible with high grade carcinoma See comment. Comment: Immunostains performed on block A1 demonstrate that the tumor cells are diffusely positive for pancytokeratin and CAM5.2and are negative for synaptophysin, TTF1, Napsin, PAX8, CD45, CD3, CD30, PAX5, OCT4 and show focal weak staining with WT1 which is considered non-specific. Additional immunostains on block A2 show that the tumor cells are also negative for p40, p63, CD5, CD117, glypican 3 and CK 7. The carcinoma lacks features of a small cell carcinoma but the morphology and immunoprofile are otherwise non-specific. Immunostains usually expressed in squamous carcinomas, thyroid and thymic tumors, pulmonary adenocarcinomas and germ cell tumors are negative. While the origin of this tumor is not clear, poorly differentiated non-small cell lung carcinoma remains a diagnostic possibility. Clinical and imaging correlation is recommended. Additionally an immunostain for NUT is being performed at [facility] and be reported in an addendum PD-L1: Results: % Positive: 20% PD-L1 test name: DAKO PD-L1 IHC 22C3 pharmDX Cell types evaluated: Tumor cells Pursuant to the Sound Person Program at the [facility] Pathology Department, selected slides from this case have been concurrently reviewed by the following pathologist: Dr. Lopez who agrees with the final diagnosis. Attestation: By this signature, I attest that I have personally formulated the final interpretation expressed in this report and that the above diagnosis is based upon my examination of the slides and/or other material indicated in this report. +++ +++ radha/01/27/2018 ################################################## ###################### Material Received: A: right neck mass History: 42-year-old male with history of right neck mass, had voice hoarseness within past three weeks, imaging showed a large right neck mass compressing the trachea and involving the mediastinum and hilum (though the thyroid is not involved on imaging) Gross Description: A. Received in formalin, labeled with the patient's name and "right neck mass" is a 1.2 x 0.3 x 0.2 cm aggregate of cylindrical and irregular, pale pedraza soft tissue fragments. The specimen is entirely submitted in cassette A1. (lmt) lt01/24/2018 If immunohistochemical stains and/or in situ hybridization are cited in this report, the performance characteristics were determined by the Department of Pathology and Laboratory Medicine of the [facility] ([employer] [facility]) in compliance with CLIA'88 regulations.Some of these tests rely on the use of "analyte specific reagents" and are subject to specific labeling requirements by the FDA. Known positive and negative control tissues demonstrate appropriate staining.Results should be interpreted with caution given the likelihood of false negativity on decalcified specimens.This testing was developed by the Department of Pathology and Laboratory Medicine of the [facility].It has not been cleared or approved by the FDA.The FDA has determined that such clearance or approval is not necessary. Specimen Performing Laboratory [facility] LAB RESULTS * URINALYSIS, MICROSCOPIC (01/24/2018 6:00 PM) Component Value Ref Range WBCs,UA 0-2 0 - 2 /HPF RBCs,UA 0-2 0 - 3 /HPF MucousUA TRACE Specimen Performing Laboratory Urine [facility] MAIN LAB [address] [place] [address] * URINALYSIS DIPSTICK (01/24/2018 6:00 PM) Component Value Ref Range Color,UA YELLOW Turbidity,UA 1+ (A) CLEAR-CLEAR Specific [place]-Urine 1.029 1.003 - 1.035 pH,UA 5.0 5.0 - 8.0 Protein,UA NEG NEG-NEG Glucose,UA NEG NEG-NEG Ketones,UA 1+ (A) NEG-NEG Bilirubin,UA NEG NEG-NEG Blood,UA NEG NEG-NEG Urobilinogen,UA NORMAL NORM-NORMAL Nitrite,UA NEG NEG-NEG Leukocytes,UA NEG NEG-NEG Urine Ascorbic Acid, UA NEG NEG-NEG Specimen Performing Laboratory Urine [facility] MAIN [facility] [address] [place] [address] * OSMOLALITY-URINE RANDOM (01/24/2018 6:00 PM) Component Value Ref Range Osmolality-Urine 847 50 - 1,400 MOS/KG Specimen Performing Laboratory Urine MAIN LAB [address] [place] [address] * IR PERCUTANEOUS BIOPSY (01/24/2018 5:51 PM) Specimen Performing Laboratory [facility] RAD RESULTS Impressions Successful US-guided biopsy of right supraclavicular mass. I, Oseas Valentine M.D., the attending interventional radiologist, performed the entire procedure, personally reviewed the images, and formulated the interpretations and opinions expressed in this report. @TT Finalized by Oseas Valentine M.D. on 01/27/2018 8:56 AM. Dictated by Oseas Valentine M.D. on 01/27/2018 8:53 AM. Narrative US-guided right supraclavicular mass biopsy: Clinical Indication: Large infiltrative mass in the mediastinum and right supraclavicular region Medications: 2% lidocaine Comparison study: CT scan January 23, 2018 Technique/findings: A brief history and physical was obtained and appropriate imaging was reviewed. The patient's was provided an explanation of the procedure including risks and benefits. Informed written consent was then obtained from patient's . The patient was placed in semiupright position. The skin in the right supraclavicular region was then prepped and draped in the usual sterile fashion. Limited scans through the supraclavicular region were done to identify the large infiltrative mass. Lidocaine was then injected in the subcutaneous tissues. Under ultrasound guidance, multiple (approximate 15) 18-gauge core biopsy samples were obtained throughout the mass. Samples were sent to surgical pathology, microbiology, and cytology for analysis. The patient tolerated the procedure well. Findings: There is a large heterogeneous but primarily hypoechoic infiltrative mass in the right supraclavicular region. Under color flow imaging, the right carotid artery was identified deep within the mass. Biopsy samples were obtained away from this. Procedure Note Interface, Radiant Results - 01/27/2018 9:00 AM CDT US-guided right supraclavicular mass biopsy: Clinical Indication: Large infiltrative mass in the mediastinum and right supraclavicular region Medications: 2% lidocaine Comparison study: CT scan January 23, 2018 Technique/findings: A brief history and physical was obtained and appropriate imaging was reviewed. The patient's was provided an explanation of the procedure including risks and benefits. Informed written consent was then obtained from patient's . The patient was placed in semiupright position. The skin in the right supraclavicular region was then prepped and draped in the usual sterile fashion. Limited scans through the supraclavicular region were done to identify the large infiltrative mass. Lidocaine was then injected in the subcutaneous tissues. Under ultrasound guidance, multiple (approximate 15) 18-gauge core biopsy samples were obtained throughout the mass. Samples were sent to surgical pathology, microbiology, and cytology for analysis. The patient tolerated the procedure well. Findings: There is a large heterogeneous but primarily hypoechoic infiltrative mass in the right supraclavicular region. Under color flow imaging, the right carotid artery was identified deep within the mass. Biopsy samples were obtained away from this. IMPRESSION Successful US-guided biopsy of right supraclavicular mass. Oseas Paniagua M.D., the attending interventional radiologist, performed the entire procedure, personally reviewed the images, and formulated the interpretations and opinions expressed in this report. @TT Finalized by Oseas Valentine M.D. on 01/27/2018 8:56 AM. Dictated by Oseas Valentine M.D. on 01/27/2018 8:53 AM. * TSH WITH FREE T4 REFLEX (01/24/2018 5:30 PM) Component Value Ref Range TSH 2.030 0.35 - 5.00 MCU/ML Specimen Performing Laboratory Blood MAIN LAB [address] [place] [address] * BASIC METABOLIC PANEL (01/24/2018 5:30 PM) Component Value Ref Range Sodium 130 (L) 137 - 147 MMOL/L Potassium 4.4 3.5 - 5.1 MMOL/L Chloride 100 98 - 110 MMOL/L CO2 21 21 - 30 MMOL/L Anion Gap 9 3 - 12 Glucose 90 70 - 100 MG/DL Blood Urea Nitrogen 14 7 - 25 MG/DL Creatinine 0.95 0.4 - 1.24 MG/DL Calcium 9.4 8.5 - 10.6 MG/DL eGFR Non >60 >60 mL/min Comment: The eGFR is not validated for use in drug dosing adjustments.Continue to use estimated creatinine clearance per dosing reference text.Please contact the Clinical Pharmacist for questions. eGFR >60 >60 mL/min Comment: The eGFR is not validated for use in drug dosing adjustments.Continue to use estimated creatinine clearance per dosing reference text.Please contact the Clinical Pharmacist for questions. Specimen Performing Laboratory Blood MAIN LAB [address] [place] [address] * FLOW CYTOMETRY (01/24/2018 5:00 PM) Component Value Ref Range PATHOLOGY REPORT [facility] [email or web address] Marjorie Tobar MD, Director of Clinical Laboratory Seven Reyes MD, Director of Flow Cytometry Laboratory Department of Pathology and Laboratory Medicine [address] [place] [address] Surgical Pathology Office:[phone]:[phone] FLOW CYTOMETRY REPORT NAME: DAVID HARRIS SURG PATH #: [id number] MR #: [id number] SPECIMEN CLASS: BILLING #: [id number] ALT ID #:LOCATION: [facility] DATE OF PROCEDURE: 01/24/2018 AGE:42 SEX: M DATE RECEIVED: 01/25/2018 : 1975TIME RECEIVED:08:52 PHYSICIAN: LEXI VARELA DATE OF REPORT: 01/25/2018 COPY TO: DO SARITHA SILVA,[facility] DATE OF PRINTIN01/25/2018 Material Received: A: Right Neck Mass Biopsy ################################################## ###################### Final Diagnosis: A. Right Neck Mass Biopsy:Negative immunophenotypic study. See interpretation. Interpretation: Lymphocytes comprise 75% of total events.The majority are T cells with a decreased CD4 to CD8 ratio and normal antigen expression. B cells are polyclonal with normal antigen expression.There is no immunophenotypic evidence of non-Hodgkin lymphoma. Large cell lymphoma, especially diffuse large cell lymphoma can be false negative, please correlate with biopsy specimen. Attestation: By this signature, I attest that I have personally formulated the final interpretation expressed in this report and that the above diagnosis is based upon my examination of the slides and/or other material indicated in this report. +++Electronically Signed Out By+++ pmw/01/25/2018 Interpreted by: MD Gary Lynn MD Resident 01/25/2018 ################################################## ###################### Lab Data: Flow Cytometry - Lymphoma Panel B Cell Associated Markers (% Positive Cells): CD19=8; CD20=8; CD23=0; Doffing=4; Lambda=4; Doffing:Lambda ratio=1.0 T Cell Associated Markers (% Positive Cells): CD2=82; CD3=78; CD4=29; CD5=70; CD7=78; CD8=46 CD4:CD8 ratio=0.6 Miscellaneous Markers (% Positive Cells): CD10=1; CD34=0; CD38=64; JS91=761; CD56=7; FMC7=0; RY223=6 Cell Viability (%): 92 Number of Cells Analyzed:24,863 Total Number of Markers: 23 Summary of Marker Combinations: Doffing/Lambda/5/10/19/45/38/20;FMC7/23/5/34/200 /45/19;2/7/5/3/4/45/56/8 This test was developed and its performance characteristics determined by the [facility] Flow Cytometry Laboratory.It has not been cleared or approved by the U.S. Food and Drug Administration (FDA).The FDA has determined that such clearance or approval is not necessary. Specimen Performing Laboratory LAB RESULTS * LEUKEMIA/LYMPHOMA PANEL FLUID/TISSUE (01/24/2018 5:00 PM) Component Value Ref Range Leuk/Lymph Interpretation SEE PATHOLOGY REPORT Specimen/LLM RIGHT NECK MASS BIOPSY Specimen Performing Laboratory MAIN LAB [address] [place] [address] * CULTURE-FUNGAL,OTHER (01/24/2018 5:00 PM) Component Value Ref Range Battery Name FUNGUS CULTURE Specimen Description BIOPSY R neck mass Special Requests NONE Culture NO GROWTH OF FUNGUS AT 4 WEEKS Report Status FINAL 02/24/2018 Specimen Performing Laboratory Biopsy MAIN LAB [address] [place] [address] * CULTURE-TB (AFB) (01/24/2018 5:00 PM) Component Value Ref Range Battery Name AFB CULTURE Specimen Description BIOPSY R neck mass Special Requests NONE Culture NO GROWTH OF MYCOBACTERIA AT 6 WEEKS Report Status FINAL 03/17/2018 Specimen Performing Laboratory Biopsy MAIN LAB [address] [place] [address] * CULTURE-WOUND/TISSUE/FLUID(AEROBIC ONLY)W/SENSITIVITY (01/24/2018 5:00 PM) Component Value Ref Range Battery Name ROUTINE CULTURE Specimen Description BIOPSY R neck mass Special Requests NONE Culture NO GROWTH 5 DAYS Report Status FINAL 01/29/2018 Specimen Performing Laboratory Biopsy MAIN LAB [address] [place], [place] [id number] * CULTURE-ANAEROBIC (01/24/2018 5:00 PM) Component Value Ref Range Battery Name ANAEROBE CULTURE Specimen Description BIOPSY R neck mass Special Requests NONE Culture NO ANAEROBES ISOLATED Report Status FINAL 01/29/2018 Specimen Performing Laboratory Biopsy MAIN LAB [address] [place] [address] * CHEST 2 VIEWS (01/24/2018 2:38 AM) Specimen Performing Laboratory [facility] RAD RESULTS Impressions 1.Fullness and widening of the upper mediastinum and bilateral katia, corresponding to the anterior mediastinal mass/lymphadenopathy on the outside CT. 2.Small right pleural effusion. Approved by Antonio Nicholson M.D. on 01/24/2018 8:58 AM By my electronic signature, I attest that I have personally reviewed the images for this examination and formulated the interpretations and opinions expressed in this report Finalized by Saundra Anne M.D. on 01/24/2018 10:20 AM. Dictated by Antonio Nicholson M.D. on 01/24/2018 7:58 AM. Narrative Procedure: CHEST 2 VIEWS Clinical Indication:Neck mass Comparison:External CT chest January 23, 2018 Findings: The heart size is normal without pulmonary venous congestion. There is fullness and widening of the upper mediastinum and bilateral katia. Small right pleural effusion. No pneumothorax. Procedure Note Interface, Radiant Results - 01/24/2018 10:23 AM CDT Procedure: CHEST 2 VIEWS Clinical Indication: Neck mass Comparison: External CT chest January 23, 2018 Findings: The heart size is normal without pulmonary venous congestion. There is fullness and widening of the upper mediastinum and bilateral katia. Small right pleural effusion. No pneumothorax. IMPRESSION 1. Fullness and widening of the upper mediastinum and bilateral katia, corresponding to the anterior mediastinal mass/lymphadenopathy on the outside CT. 2. Small right pleural effusion. Approved by Antonio Nicholson M.D. on 01/24/2018 8:58 AM By my electronic signature, I attest that I have personally reviewed the images for this examination and formulated the interpretations and opinions expressed in this report Finalized by Saudnra Anne M.D. on 01/24/2018 10:20 AM. Dictated by Antonio Nicholson M.D. on 01/24/2018 7:58 AM. * ALPHA FETO PROTEIN (AFP) (01/24/2018 2:16 AM) Component Value Ref Range Alpha Feto Protein 2.0 0.0 - 15.0 NG/ML Specimen Performing Laboratory MAIN LAB [address] [place] [address] * LACTIC ACID(LACTATE) (01/24/2018 2:16 AM) Component Value Ref Range Lactic Acid 1.2 0.5 - 2.0 MMOL/L Specimen Performing Laboratory Blood MAIN LAB [address] [place] [address] * C REACTIVE PROTEIN (CRP) (01/24/2018 12:54 AM) Component Value Ref Range C-Reactive Protein 2.41 (H) <1.0 MG/DL Specimen Performing Laboratory MAIN LAB [address] [place] [address] * BETA-HCG (01/24/2018 12:54 AM) Component Value Ref Range Beta-HCG,Serum 1 <5 U/L Specimen Performing Laboratory MAIN LAB [address] [place] [address] * LDH-LACTATE DEHYDROGENASE (01/24/2018 12:54 AM) Component Value Ref Range Lactate Dehydrogenase 367 (H) 100 - 210 U/L Specimen Performing Laboratory MAIN LAB [address] [place] [address] * CT MISC EXTERNAL IMAGING (01/23/2018 6:50 PM) Only the most recent of 4 results within the time period is included. Narrative This order has been auto finalized and does not contain a result. from Last 3 Months
--- OUTSIDE RECORDS SUMMARY | 2018-03-17 15:10 | XMS REPORT | Encounter Summary ---
Author Author [facility] Organization [facility] Address Unknown Phone Unavailable Care Team Providers Care Cocoa Room Operator Name Role Phone No Pcp, Na PCP Unavailable Encounter Details Date Type Department Care Team Description 02/14/2018 Pharmacy Visit [facility] [address] [place] [address] Social History Tobacco Use Types Packs/Day Years [...]
--- OUTSIDE RECORDS SUMMARY | 2018-03-17 15:10 | XMS REPORT | Encounter Summary ---
Author Author [facility] Organization [facility] Address Unknown Phone Unavailable Care Team Providers Care Charge Histotechnologist Name Role Phone No Pcp, Na PCP Unavailable Encounter Details Date Type Department Care Team Description 02/14/2018 [facility] Pasha Wood MD Therapy [address] [place] [address] [place] [address] [place] [address] [phone] Social History Tobacco Use Types Packs/Day Years [...] Notes * Pasha Wood MD - 02/14/2018 9:27 AM CDT Formatting of this note may be different from the original. Weekly Management Progress Note Date: 02/14/2018 Kelvin Zaldivar is a 42 y.o. male. Vitals: There were no vitals filed for this visit. Subjective There were no encounter diagnoses. Staging: Cancer Staging No matching staging information was found for the patient. Treatment Data Summary: Treatment Data 02/06/2018 02/07/2018 02/10/2018 02/11/2018 02/12/2018 02/13/20182017 Course ID I0-Gvrf-Oavmlzad B1-Vkqe-Wxadhkpt B9-Qgpu-Rqburvtm W8-Zsys-Ajowojdf C1 -Neck-Mediasti B0-Jrty-Vxvjbeqg T4-Uaoc-Pthblrrg Plan ID Neck-Mediast1:1 Neck-Med-I # Neck-Med-I # [...] Neck-Mediastinum Neck-Mediastinum Neck-Mediastinum Dosage Given to Date (Gy) 12 14.59715336 16.37547737 18.79421413 20.48488034 22.9214837 24.95742860 Subjective: He tolerated XRT. He initially received 4 [...] chemotherapy and radiotherapy closed to home at [facility]. We will refer him to local radiation oncology to continue his XRT. in this encounter Plan of Treatment Not on fileas of this encounter Visit Diagnoses Not on filein this encounter
--- OUTSIDE RECORDS SUMMARY | 2018-03-17 15:10 | XMS REPORT | Encounter Summary ---
Author Author [facility] Organization [facility] Address Unknown Phone Unavailable Care Team Providers Care Rpg Programmer Name Role Phone No Pcp, Na PCP Unavailable Encounter Details Date Type Department Care Team Description 02/14/2018 Hosp Case Management - Social Esthela Machuca Documentation Work Only [address] [place] [address] Social History Tobacco Use Types Packs/Day Years Used Date Current Every Day Smoker Smokeless Tobacco: Never Used Alcohol Use Drinks/Week oz/Week Comments No Sex Assigned at Date Recorded Not on file as of this encounter Functional Status Functional Status Response Date of Assessment Does the patient have a hearing impairment: No 01/25/2018 as of this encounter Progress Notes * Esthela Machuca - 02/14/2018 3:15 PM CDT 02/14/18-SHAHZAD spoke with JOSE G Canada who states family and Dr. Nina office in [place] are working on insurance approval for pt to continue his tx there. Pt to discharge home today. PATTY Lopez,CCM in this encounter Plan of Treatment Not on fileas of this encounter Visit Diagnoses Not on filein this encounter
--- OUTSIDE RECORDS SUMMARY | 2018-03-17 15:10 | XMS REPORT | Encounter Summary ---
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 Name Role Phone No Pcp, Na PCP Unavailable Reason for Visit * Reason Comments On-treatment Encounter Details Date Type Department Care Team Description 02/14/2018 Office Visit [facility] - Radiation Pasha Wood MD Carcinoma of unknown Therapy [address] origin (HCC) (Primary Dx) [address] [place] [address] [place] [address] [phone] Social History Tobacco Use Types Packs/Day Years Used Date Current Every Day Smoker Smokeless Tobacco: Never Used Alcohol Use Drinks/Week oz/Week Comments No Sex Assigned at Date Recorded Not on file as of this encounter Functional Status Functional Status Response Date of Assessment Does the patient have a hearing impairment: No 01/25/2018 as of this encounter Progress Notes * Dread Blanco, JOSE G - 02/14/2018 9:00 AM CDT The patient requests to finish radiation treatments closer to home in [place], [place] as he was d/c from the hospital today. Dr. Wood spoke with the patient about the interruption in treatment as he would need to be re-simmed at [facility], the patient still wishes to transfer care from a logistics standpoint. We also offered for him to continue treatments here at until [facility] is able to get him started with treatment there, however the patient still declined. I spoke with Dr. Zheng Lawton nurse at [facility] in [place], [place], they will work on getting approval from insurance and will call the patients girlfriend, Britany as soon as they are able to get him scheduled. I have faxed records to Dr. Calzada's office at and have requested radiologic images to be clouded and dosimetry records will be emailed. I notified Britany that Dr. Calzada's office will be calling her with appointment information as soon as they get the patient scheduled, she verbalized understanding and has our contact information if she should have any questions or need anything else. * Pasha Wood MD - 02/14/2018 9:00 AM CDT Formatting of this note may [...] 02/07/2018 02/10/2018 02/11/2018 02/12/2018 02/13/20182017 Course ID [id number] H1-Yhtv-Caxotlmb W0-Fpop-Rtqtedtf A1-Qjdc-Qbpzmfbs C1 -Neck-Mediasti A9-Nsbe-Ssfialrt V8-Eiuw-Uxhvunwu Plan ID Neck-Mediast1:1 Neck-Med-I # Neck-Med-I # [...] Neck-Mediastinum Dosage Given to Date (Gy) 12 [phone] Subjective: He tolerated XRT. He initially received [...] chemotherapy and radiotherapy closed to home at [facility], [place]. We will refer him to local radiation oncology to continue his XRT. in this encounter Plan of Treatment Not on fileas of this encounter Visit Diagnoses Diagnosis Carcinoma of unknown origin (HCC) - Primary Other malignant neoplasm without specification of site
--- OUTSIDE RECORDS SUMMARY | 2018-03-17 15:10 | XMS REPORT | Encounter Summary ---
Author Author [facility] Organization [facility] Address Unknown Phone Unavailable Care Team Providers Care Resistance Welder Name Role Phone No Pcp, Na PCP Unavailable Encounter Details Date Type Department Care Team Description 02/14/2018 [facility] - Radiation Pasha Wood MD Therapy [address] [place] [address] [place] [address] [phone] Social History Tobacco Use Types Packs/Day Years Used Date Current Every Day Smoker Smokeless Tobacco: Never Used Alcohol Use Drinks/Week oz/Week Comments No Sex Assigned at Date Recorded Not on file as of this encounter Functional Status Functional Status Response Date of Assessment Does the patient have a hearing impairment: No 01/25/2018 as of this encounter Progress Notes * Sarina Ruggiero - 02/14/2018 8:09 AM CDT Kelvin Zaldivar.received radiation therapy treatment today. 6 of26 treatments. in this encounter Plan of Treatment Not on fileas of this encounter Visit Diagnoses Not on filein this encounter
--- OUTSIDE RECORDS SUMMARY | 2018-03-17 15:13 | XMS REPORT | Encounter Summary ---
Author Author [facility] Organization [facility] Address Unknown Phone Unavailable Care Team Providers Care Counter Tacker Name Role Phone No Pcp, Na PCP Unavailable Reason for Visit * Auth/Cert Status Reason Specialty Diagnoses / Referred By Referred To Procedures Contact Contact Diagnoses Neck mass Diagnosis unknown Neck/chest mass Neck mass Encounter Details Date Type Department Care Team Description 01/24/2018 Hospital 45 HEM/ONC Carrol [place] MD Neck mass - Encounter [address] 02/14/2018 [place] [address] [address] [place] [address] [phone] Carlos Caldera DO [address] [place] [address] [phone] Miguel Granda MD [address] [place] [address] [phone] Gabo Be MD [address] [place] [address] [phone] Jerzy Watts MD [address] [place] [address] [phone] Omi Amaya MD [address] [place] [address] [phone] Latisha Harrington, PRODUCTION MACHINIST [address] [place] [address] [phone] Vadim Rubi MD [address] [place] [address] [phone] Lily Lau MD [address] [place] [address] [phone] D Gabrielle vo MD [address] [place] [address] [phone] S Chon patton MD [address] [facility] [address] [place] [address] [phone] Social History Tobacco Use Types Packs/Day Years Used Date Current Every Day Smoker Smokeless Tobacco: Never Used Alcohol Use Drinks/Week oz/Week Comments No Sex Assigned at Date Recorded Not on file as of this encounter Last Filed Vital Signs Vital Sign Reading [...] Mass Index 21.68 02/14/2018 5:31 AM CDT in this encounter Functional Status Functional Status Response Date of Assessment Does the patient have a hearing impairment: No 01/25/2018 as of this encounter Discharge Summaries * Omi Banda MD - 02/14/2018 12:03 PM CDT Formatting of this note may be different from the original. Physician Discharge Summary Name: Kelvin Zaldivar Date Of : 1975 Age: 42 years Admit date: 01/24/2018 Discharge date: 02/14/2018 Attending Physician: Omi Banda MD Service: Med-Oncology Private Physician Summary completed by: Omi Banda MD Reason for hospitalization: Airway Compromise, Acute Hypoxic Respiratory Failure. Significant PMH: Past Medical History: Diagnosis Date Tobacco abuse Allergies: Patient has no known allergies. Admission Physical Exam notable for: General: Alert, cooperative, no distress, appears stated age Head: Normocephalic, without obvious abnormality, atraumatic Eyes: Conjunctivae/corneas clear. PERRL, EOMs intact. Throat: Lips, mucosa and tongue normal. Teeth and gums normal Neck: Supple, assymmetrical, cervical adenopathy, patient has JVD and right neck mass that is tender on palpation Lungs: Clear to auscultation bilaterally Heart: Regular rate and rhythm, S1, S2 normal, no murmur, click rub or gallop Abdomen: Soft, non-tender. Bowel sounds normal. No masses. No organomegaly. Extremities: Extremities normal, atraumatic, no cyanosis or edema Admission Lab/Radiology studies notable for: CBC AND DIFF Collection Time: 01/24/18 12:54 AM Result Value Ref Range White Blood Cells 18.9 (H) 4.5 - 11.0 K/UL RBC 4.80 4.4 - 5.5 M/UL Hemoglobin 14.4 13.5 - 16.5 GM/DL Hematocrit 42.4 40 - 50 % MCV 88.4 80 - 100 FL MCH 30.0 26 - 34 PG MCHC 33.9 32.0 - 36.0 G/DL RDW 13.9 11 - 15 % Platelet Count 206 150 - 400 K/UL MPV 7.2 7 - 11 FL Neutrophils 89 (H) 41 - 77 % Lymphocytes 5 (L) 24 - 44 % Monocytes 5 4 - 12 % Eosinophils 1 0 - 5 % Basophils 0 0 - 2 % Absolute Neutrophil Count 16.80 (H) 1.8 - 7.0 K/UL Absolute Lymph Count 1.00 1.0 - 4.8 K/UL Absolute Monocyte Count 0.90 (H) 0 - 0.80 K/UL Absolute Eosinophil Count 0.20 0 - 0.45 K/UL Absolute Basophil Count 0.00 0 - 0.20 K/UL PROTIME INR (PT) Collection Time: 01/24/18 12:54 AM Result Value Ref Range INR 1.2 0.8 - 1.2 COMPREHENSIVE METABOLIC PANEL Collection Time: 01/24/18 12:54 AM Result Value Ref Range Sodium 133 (L) 137 - 147 MMOL/L Potassium 4.1 3.5 - 5.1 MMOL/L Chloride 101 98 - 110 MMOL/L Glucose 101 (H) 70 - 100 MG/DL Blood Urea Nitrogen 13 7 - 25 MG/DL Creatinine 0.99 0.4 - 1.24 MG/DL Calcium 9.7 8.5 - 10.6 MG/DL Total Protein 7.6 6.0 - 8.0 G/DL Total Bilirubin 0.8 0.3 - 1.2 MG/DL Albumin 4.1 3.5 - 5.0 G/DL Alk Phosphatase 107 25 - 110 U/L AST (SGOT) 15 7 - 40 U/L CO2 21 21 - 30 MMOL/L ALT (SGPT) 10 7 - 56 U/L Anion Gap 11 3 - 12 eGFR Non >60 >60 mL/min eGFR >60 >60 mL/min Brief Hospital Course: The patient was admitted and the following issues were addressed during this hospitalization: (with pertinent details). Adenocarcinoma of Unknown Primary:CT N/C/A/P at OSH showed 10.8cm R supraclavicular mass, no discrete thyroid mass,infiltrating mass involving the mediastinum, subcarinal &hilar regions b/l. mass partially encases the ascending aorta & almost completely encases the main pulmonary artery. trachea is also encompassed &is narrowed laterally to 6 mm, small R pleural effusion, sclerotic foci in several upper thoracic vertebral bodies, suspicious for metastatic disease. MRI brain 01/22 (OSH) - unremarkable. S/p Bx by IR on 01/24. Pathology showed poorly differentiated carcinoma. S/p simulation with Rad Onc on 01/31. He received some XRT inpatient. He has 20 fractions remaining of XRT. Patient wants to continue treatment close to home. Rad Onc will send a referral there. Received 1st cycle of Cisplatin/Etopioside on (02/03). Plan for q21 days in concurrence with XRT. F/U with Medical Oncology with Dr Jacobo on 02/20/18 at 8 am has been set up at [facility] [place] [address], - [phone]) Acute Hypoxic Respiratory Failure: Thought to be mostly related to atelectasis after PEG placement vs pneumonia. Required ventilation with ICU care. He received abx that are now tapered off to Augmentin. Currently on Trach shield with PiO2 21%. Acute Bilateral UEs DVTs: Found on Dopplers on 02/06/18. Started on Therapeutic Lovenox. Airway Compromise:S/p trach placement by ENT on 01/24. Trach does not pass through the area of compression. TECHNOLOGY ASSISTANT following. Anxiety:Due to new diagnosis. Psych evaluated the patient. Currently on Ativan and Trazodone. Psych added scheduled Klonopin too for scheduled treatment. Trach SiteBleeding (resolved):Occurred on 01/26 around trach site, no blood noted w/ suctioning. Managed w/ thrombin spray. Per ENT,if re-bleeds use Afrin soaked 4x4 or thrombin spray. Tobaccoism:Smokes 1.5ppd x 20 years. Some emphysematous changes on CT. On nicotine patch. Smoking cessation counseling High Risk Aspiration / On TF diet / Constipation:Has PEG (placed on 02/06 through IR) + TFs. TECHNOLOGY ASSISTANT following. Had a video swallow on 02/10 and was advanced to FLD then Mechanical soft diet. He had issues with constipation and lack of tolerance of TFs. This was resolved with bowel regimen and bolus feeds with Isosource. TF arranged through [facility]. Hyponatremia (resolved):resolved now/ Na is normal. Leukocytosis, now with chemo-induced Pancytopenia:Infectious workup throughout this admission has been negative. Now has pancytopenia, mostly related to the recent chemo. We were not able to have home health set up due to insurance/location. Patient was provided with a list of covered outpatient rehab places next to home that would be covered 100% via insurance. Patient and SO received teaching today about trach care and TF management. Patient was discharged home in stable condition. Condition at Discharge: Stable Discharge Diagnoses: Hospital Problems Active Problems Neck mass SVC (superior vena cava obstruction) Leukocytosis Hyponatremia Tobacco abuse Carcinoma of unknown origin (HCC) Airway compromise Anxiety Acute and chronic respiratory failure with hypoxia (HCC) Acute deep vein thrombosis (DVT) of both upper extremities (HCC) Surgical Procedures: Trach Placement by ENT. Significant Diagnostic Studies and Procedures: noted in brief hospital course Consults: Oncology, Otolaryngology, Psychiatry and Radiation Oncology Patient Disposition: Home Patient instructions/medications: IMPLEMENT GENERAL IV LINE FLUSH PROTOCOL Standing Status: Standing Number of Occurrences: 1 Standing Exp. Date: 02/03/19 IMPLEMENT MEDICATION INFUSION REACTION, ANAPHYLAXIS, AND HYPERSENSITIVITY MANAGEMENT Standing Status: Standing Number of Occurrences: 1 Standing Exp. Date: 02/03/19 IMPLEMENT CHEMOTHERAPY EXTRAVASATION MANAGEMENT Standing Status: Standing Number of Occurrences: 1 Standing Exp. Date: 02/03/19 Activity as Tolerated It is important to keep increasing your activity level after you leave the hospital. Moving around can help prevent blood clots, lung infection (pneumonia ) and other problems. Gradually increasing the number of times you are up moving around will help you return to your normal activity level more quickly. Continue to increase the number of times you are up to the chair and walking daily to return to your normal activity level. Begin to work toward your normal activity level at discharge Enoxaparin (LOVENOX) Information ENOXAPARIN (LOVENOX) INFORMATION Medication Regimen: You will be discharged on Lovenox. Lovenox is a blood thinner medication. Lovenox can be used for days to months to prevent blood clots. The generic name of this medication is enoxaparin. It is very important to continue taking the medication as prescribed. Do not change your dose unless instructed by a healthcare professional. Administration Instructions: Lovenox is given by an injection under the skin (subcutaneously) on your abdomen. Give the injection at the same time every day. Do not double-up doses if you accidentally skip a dose. 1. Wash your hands with soap and water. Dry your hands. 2. Sit or lie in a comfortable position so you can easily see the area of your stomach where you will be injecting. A lounge chair, recliner, or bed (propped up with pillows) is ideal. 3. Select an area on the right or left side of your stomach, at least 2 inches from your belly button and out toward your sides. 4. Clean the area you have selected for your injection with one of the alcohol swabs provided. Allow the area to dry. 5. While the area is drying, carefully pull off the needle cap from the enoxaparin sodium syringe and discard cap. Do not press on the plunger prior to injection to expel the air bubble or medicine may be lost. To keep the needle sterile once you have removed the cap, do not set the needle down or touch the needle. 6. Hold the syringe in the hand you write with (hold it like a pencil), and, with your other hand, gently pinch the cleansed area of your stomach between your thumb and forefinger to make a fold in the skin. Be sure to hold the skin fold throughout the injection. 7. Vertically insert the full length of the needle (at a 90 angle) into the skin fold. 8. Press down on the plunger with your finger. This will deliver the medication into the fatty tissue of your stomach. Be sure to hold the skin fold throughout the injection. 9. Remove the needle by pulling it straight out. You can now let go of the skin fold. To avoid bruising, do not rub the injection site after completion of the injection. 10. Drop the used syringe -- needle first -- into an empty thick plastic container such as empty liquid laundry detergent bottle, empty bleach bottle or something similar. When the container is full, cap tightly, wrap in a trash bag and throw in your household trash. DO NOT return used syringes to the hospital. Adverse Reactions: The most common reaction seen with Lovenox is an increased risk of bleeding. Bruising may also be a common occurrence while taking this medication. Reasons to go to the emergency department: *Falling/hitting your head, with periods of headaches, vision changes, dizziness , loss of consciousness. *Heavy pressure on your chest, difficulty breathing, shortness of breath. This may be a sign of a clot in your lungs. *Blood-tinged vomiting, or what looks like coffee-grounds. This may be a sign of a stomach bleed. *Bright red urine. This may be a sign of a bleed in your bladder. *Extreme temperature changes, swelling, and pain in your thighs. This may be a sign of a clot in your legs. Report These Signs and Symptoms Please contact your doctor if you have any of the following symptoms: temperature higher than 100 degrees F, uncontrolled pain, persistent nausea and/ or vomiting, difficulty breathing, chest pain, severe abdominal pain, headache, unable to urinate, unable to have bowel movement or drainage with a foul odor Questions About Your Stay For questions or concerns regarding your hospital stay. Call [phone] Discharging attending physician: OMI BANDA [[id number]] Regular Diet You have no dietary restriction. Please continue with a healthy balanced diet. Gastro-Jejunal Tube [facility] care instructions: *WASH HANDS PRIOR TO HANDLING DRAIN. *The tube has some slack to prevent skin breakdown, but should not slide in and out all the time. *If you have increasing pain, redness, or swelling at the entry site, this can be a sign of infection; you need to stop feeds and call your doctor immediately. *Minor leakage around the tube is expected and not a sign of a major problem, but if you continue to have problems or questions, please call. *It is okay to shower with the drain. Make sure the entry site is dry before replacing a dressing. *IF THE TUBE IS PULLED OUT, PLEASE GO TO THE EMEREGENCY ROOM. A NEW TUBE NEEDS TO BE PLACED IMMEDIATELY. Return Appointment [address] [address] - [phone] Jacobo with Medical Oncology at [facility] Appointment date: 02/20/2018 Appointment time: 8:00 AM Tube Feeding Formula: Isosource 1.5 Schedule: Bolus amount 1 carton How often: six times a day Flush/Rinse: Use water 30 cc before each feed and 150 cc after each feed. Home Care Instructions: *Please remember to flush/rinse tube with water or normal saline after feed. This will help prevent the tube from clogging. *Don't keep cans of formula open for more than 24 hours. *Stop feeding if you become nauseated or begin vomiting. Hold the next feeding for 1 hour. *Make sure you are sitting up during and after feeding. *Give bolus or syringe feeding over 20 minutes. Feedings given too fast can cause cramping and loose stools. Current Discharge Medication List START taking these medications Details clonazePAM (KLONOPIN) 0.5 mg tablet Take 1/2 tablet (0.25mg) in the morning and 1 tablet (0.5mg) in the evening. May give via tube if needed Qty: 45 tablet, Refills: 0 PRESCRIPTION TYPE: Print enoxaparin (LOVENOX) 80 mg syrg Inject 0.8 mL under the skin twice daily. Qty: 60 Syringe, Refills: 4 PRESCRIPTION TYPE: Normal LORazepam (ATIVAN) 1 mg tablet Take 0.5-1 tablets by mouth every 8 hours as needed for Nausea, Vomiting or Other... (anxiety). May give via tube if needed Qty: 60 tablet, Refills: 0 PRESCRIPTION TYPE: Print nicotine (NICODERM CQ STEP 1) 21 mg/day patch Apply 1 patch to top of skin as directed daily for 42 days. Qty: 42 patch, Refills: 0 PRESCRIPTION TYPE: Normal ondansetron (ZOFRAN) 8 mg tablet Take 1 tablet by mouth every 8 hours as needed for Nausea or Vomiting. May give via tube if needed Qty: 45 tablet, Refills: 3 PRESCRIPTION TYPE: Normal polyethylene glycol 3350 (MIRALAX) 17 g packet Take 1 packet by mouth twice daily. May administer via tube if needed PRESCRIPTION TYPE: OTC prochlorperazine maleate (COMPAZINE) 10 mg tablet Take 1 tablet by mouth every 6 hours as needed for Nausea or Vomiting. May give via tube if needed Qty: 45 tablet, Refills: 3 PRESCRIPTION TYPE: Normal senna/docusate (SENOKOT-S) 8.6/50 mg tablet Take 1 tablet by mouth twice daily. May crush and give via tube if needed PRESCRIPTION TYPE: OTC simethicone (MYLICON) 80 mg chew tablet Chew 1 tablet by mouth every 6 hours as needed for Flatulence. Qty: 30 tablet, Refills: 0 PRESCRIPTION TYPE: Normal traMADol (ULTRAM) 50 mg tablet Take 0.5-1 tablets by mouth every 6 hours as needed. For pain. May crush and give through tube if needed Qty: 30 tablet, Refills: 0 PRESCRIPTION TYPE: Print Scheduled appointments: Feb 17, 2018 8:30 AM CDT Treatment with Pasha Wood MD [facility] ([facility]) [address] [place] [id number] Feb 18, 2018 8:30 AM CDT Treatment with Pasha Wood MD [facility] ([facility]) [address] [place] [address] Feb 19, 2018 8:30 AM CDT Treatment with Pasha Wood MD [facility] ([facility]) [address] [place] [address] Feb 20, 2018 8:30 AM CDT [facility]) [address] [address] Feb 21, 2018 8:30 AM CDT Treatment with P[facility] ([facility]) [address] [address] Feb 24, 2018 8:30 AM CDT Treatment with Pasha Wood MD [facility] ([facility]) [address] [address] February 25, 2018 8:30 AM CDT Treatment with Pasha Wood MD [facility] ([facility]) [address] [address] February 26, 2018 8:30 AM CDT Treatment with Pasha Wood MD [facility] ([facility]) [address] [address] February 27, 2018 8:30 AM CDT Treatment with Pasha Wood MD [facility] ([facility]) [address] [address] February 28, 2018 8:30 AM CDT Treatment with Pasha Wood MD [facility] ([facility]) [address] [place], [place] [id number] Pending items needing follow up: None More than 30 minutes were spent on today's evaluation and discharge planning. Signed: Omi Banda MD 02/14/2018 cc: Primary Care Physician: No Pcp, Na PCP Unknown Referring physicians: Self, Referral Additional provider(s): in this encounter Discharge Instructions * Patient Instructions - Jessica Rios RN - 02/04/2018 4:18 PM CDT Enoxaparin injection Brand Name: Lovenox What is this medicine? ENOXAPARIN (ee nox a PA rin) is used after knee, hip, or abdominal surgeries to prevent blood clotting. It is also used to treat existing blood clots in the lungs or in the veins. How should I use this medicine? This medicine is for injection under the skin. It is usually given by a health- care mgr. You or a family member may be trained on how to give the injections. If you are to give yourself injections, make sure you understand how to use the syringe, measure the dose if necessary, and give the injection. To avoid bruising, do not rub the site where this medicine has been injected. Do not take your medicine more often than directed. Do not stop taking except on the advice of your doctor or health care mgr. Make sure you receive a puncture-resistant container to dispose of the needles and syringes once you have finished with them. Do not reuse these items. Return the container to your doctor or health care mgr for proper disposal. Talk to your residential tech regarding the use of this medicine in children. Special care may be needed. What side effects may I notice from receiving this medicine? Side effects that you should report to your doctor or health care mgr as soon as possible: allergic reactions like skin rash, itching or hives, swelling of the face, lips, or tongue feeling faint or lightheaded, falls signs and symptoms of bleeding such as bloody or black, tarry stools; red or dark-brown urine; spitting up blood or brown material that looks like coffee grounds; red spots on the skin; unusual bruising or bleeding from the eye, gums , or nose Side effects that usually do not require medical attention (report to your doctor or health care mgr if they continue or are bothersome): pain, redness, or irritation at site where injected What may interact with this medicine? aspirin and aspirin-like medicines certain medicines that treat or prevent blood clots dipyridamole NSAIDs, medicines for pain and inflammation, like ibuprofen or naproxen What if I miss a dose? If you miss a dose, take it as soon as you can. If it is almost time for your next dose, take only that dose. Do not take double or extra doses. Where should I keep my medicine? Keep out of the reach of children. Store at room temperature between 15 and 30 degrees C (59 and 86 degrees F). Do not freeze. If your injections have been specially prepared, you may need to store them in the refrigerator. Ask your pharmacist. Throw away any unused medicine after the expiration date. What should I tell my health care provider before I take this medicine? They need to know if you have any of these conditions: bleeding disorders, hemorrhage, or hemophilia infection of the heart or heart valves kidney or liver disease previous stroke prosthetic heart valve recent surgery or delivery of a baby ulcer in the stomach or intestine, diverticulitis, or other bowel disease an unusual or allergic reaction to enoxaparin, heparin, pork or pork products , other medicines, foods, dyes, or preservatives or trying to get breast-feeding What should I watch for while using this medicine? Visit your doctor or health care mgr for regular checks on your progress. Your condition will be monitored carefully while you are receiving this medicine. Notify your doctor or health care mgr and seek emergency treatment if you develop breathing problems; changes in vision; chest pain; severe, sudden headache; pain, swelling, warmth in the leg; trouble speaking; sudden numbness or weakness of the face, arm, or leg. These can be signs that your condition has gotten worse. If you are going to have surgery, tell your doctor or health care mgr that you are taking this medicine. Do not stop taking this medicine without first talking to your doctor. Be sure to refill your prescription before you run out of medicine. Avoid sports and activities that might cause injury while you are using this medicine. Severe falls or injuries can cause unseen bleeding. Be careful when using sharp tools or knives. Consider using an electric razor. Take special care brushing or flossing your teeth. Report any injuries, bruising, or red spots on the skin to your doctor or health care mgr. NOTE:This sheet is a summary. It may not cover all possible information. If you have questions about this medicine, talk to your doctor, pharmacist, or health care provider. Copyright 2018 [employer] IMPLANTED PORT PLACEMENT An implanted port is a small intravenous access device placed completely under the skin through which you may receive chemotherapy, other medications or blood products. It may also be used to draw blood. The port consists of a small reservoir that is implanted usually under the skin of your chest. This reservoir is connected to a catheter that is placed in a tunnel under the skin and ends in a large vein near the center of your chest. You may also hear it referred to as a chest port, power port or portacath. A power port is a port that can be used for contrast injections for CT scans. A vortex portmay beused for photopheresis. In some cases, the port may be placed in the upper arm. POST-PROCEDURE ACTIVITY: A responsible adult must drive you home. After receiving sedation or anesthesia, you should not drive, operate heavy machinery or do anything that requires concentration for at least 24 hours after receiving sedation. It is recommended that a responsible adult be with you until morning. Do not lift more than 5 lbs. and avoid any strenuous activity affecting the upper body such as pushing, pulling or straining for 10 days. If the port was placed in your arm, do not allow blood pressures to be taken in that arm. POST-PROCEDURE SITE CARE: You will have a bandage over the incision on your chest and another small bandage at your neck. Keep the bandages dry. You may remove the small bandage at your neck in 24 hours and leave open to air. Remove the bandage over the incision on your chest after 48 hours. After 24 hours, you may shower. Keep the site covered and avoid direct water contact to the incision. After 48 hours, remove dressing to shower. Use antibacterial soap, gently wash the site then pat dry after. There are no stitches to be removed. Steri-strips (strips of tape) may be used. If present the strips will begin to fall off in 7-10 days. If they remain after 2 weeks, gently remove them. Do not submerge the area underwater for 1 week or until fully healed (no swimming/hot tub, etc.) Be sure your hands are clean when touching near the site. Do not use ointments, creams or powders on the incision. If you are admitted to the hospital, you will be taught to wash with Chlorhexidine (CHG) soap. This soap reduces germs on your skin and lowers your risk of infection while in the hospital. It will keep harmful germs off your skin for 24 hours, so it is important to use this soap daily. The nursing staff will teach you how to shower with this soap. If you are unable to shower, they will assist you with using it during a bed bath. It is not necessary to continue using this soap at home. This soap can cause dry skin. We recommend using lotion that is compatible with CHG after each bath or shower. The nursing staff can provide you with our recommended lotion in the hospital. DIET/MEDICATIONS: You may resume your previous diet after the procedure. If you receive sedation or anesthesia, avoid any foods or beverages containing alcohol for at least 24 hours after the procedure. Please see the Medication Reconciliation sheet for instructions regarding resuming your home medications. CALL THE DOCTOR IF: Bright red blood has soaked the bandage. You have pain not relieved by medication. Some soreness at the site is to be expected. You have Chills, body aches, fever greater than 101?F Redness, swelling or warmth at or around the incision Drainage or pus coming from the incision Increased tenderness around the incision You have opening of the edges of the incision. You have swelling of the face, neck, chest or arm on the side where the port was placed. For severe problems such as excessive bleeding, chest pain or shortness of breath, please call [phone]. For any of the above symptoms or for problems or concerns related to the procedure, call [phone] for Saturday-Saturday 7-5. After-hours and weekends, please call [phone] and ask for the Interventional Automobile Repair Service Estimator on-call. Interventional Radiology Gastrostomy Tube (G-tube)Placement-Discharge Instructions A Gastrostomy tube or G-tube is a soft, narrow tube placed through the skin and stomach wall directly into the stomach. It is used to give feedings, fluids and medications. During or before the procedure, a small nasogastric tube is placed through your nose into your stomach in order to fill the stomach with air. This helps with tube placement and may make you feel full temporarily. Using fluoroscopy to guide placement, a small needle is placed through the skin and advanced into the stomach. In some cases, the tube may be advanced into the upper portion of the small intestines (the jejunum). These are then referred to as a G-J tube or a J-tube. You may also hear the tube referred to as a PEG which is a gastrostomy tube placed in an alternate manner using an endoscope. AFTER THE PROCEDURE: Your G-tube will be connected to a gravity drainage bag after placement. Keep bag connected for the first 12 hours post procedure. This is done to ensure the stomach remains decompressed and to identify any bleeding. Do not use the G-tube until 12 hours after the procedure. After 12 hours, you should disconnect the bag and begin using the tube by instilling small amounts of water (50-100ml) using a large feeding syringe. Feedings may begin 24 hours after the procedure, if water is tolerated. Be sure to flush G-tube with 50ml of water after each feeding. (Contact your referring physician for instructions on feeding.) You must flush your tube with at least 50ml water, twice daily until feedings start. POST-PROCEDURE ACTIVITY: A responsible adult must drive you home. You should not drive, operate heavy machinery or do anything that requires concentration for at least 24 hours after receiving sedation or anesthesia. It is recommended that a responsible adult be with you until morning. Avoid any exertion for one week. Exertion is lifting over 5 lbs., pushing, pulling or straining. Never use scissors, pins, or other sharp objects near the tube. Avoid bending, crimping or pulling on the tube. Be sure your hands are clean when touching near the tube site or near the suture lock sites. Do not use ointments, creams or powders around the site unless ordered by your physician. POST-PROCEDURE SITE CARE: Keep the dressing around the tube dry. Remove it in 1-2 days and leave the site open to air. For the first 2 days, clean around the tube site and the suture lock sites with warm water and mild soap. Rinse thoroughly and dry gently. You may use a cotton-tipped applicator or small piece of gauze. The suture locks look like small buttons around the tube. They typically detach from the abdomen and fall off in about 10 days as the sutures are absorbed. In rare cases, the suture locks do not fall off and must be removed by the physician. The sutures will usually absorb completely in about 3 months. You may shower after 48 hours and you should gently clean around the tube site while in the shower using mild soap. If you are unable to shower, continue to clean around the tube site and suture lock sites daily as described above. Do not submerge the tube site underwater (no tub bath, swimming/hot tub, etc. ) DIET/MEDICATIONS: If you are able to take oral feedings, begin with a clear liquid diet 12 hours after your tube is placed. If you are tolerating liquids with no distention or abdominal pain, you may begin to eat and drink 24 hours after the procedure. Begin with a clear liquid diet and advance to a normal diet as you can tolerate. Avoid any foods or beverages containing alcohol for at least 24 hours after receiving sedation or anesthesia. Please see attached Medication Reconciliation Sheet for instructions on resuming your home medications. If you are on blood thinning medications, you must contact your doctor who manages them to receive instructions on when to resume them and on when blood work should be done. WHEN TO CALL THE DOCTOR: (Please call [phone] for severe symptoms) You have bleeding from the tube site or through the tube. You are coughing up or vomiting blood or see blood in your stool. You have severe pain at the site or increasing abdominal discomfort. (Some soreness at the site is normal for a few days.) You have persistent nausea or vomiting. Redness, swelling around the tube (a small area of redness is normal). Fever greater than 101?F. Pus-like drainage from around the tube. You have a blocked tube, leaking around the tube site or the tube falls out. After 2 weeks, your suture locks have not fallen off. For any of the above symptoms or for problems or concerns related to the procedure,[phone] for Saturday-Saturday 7-5. After-hours and weekends, please [phone] and ask for the Interventional Automobile Repair Service Estimator on-call. in this encounter Medications at Time of Discharge Medication Sig. Disp. Refills Start Date End Date clonazePAM (KLONOPIN) 0.5 Take 1/2 tablet (0.25mg) 45 tablet 0 2017 mg tablet in the morning and 1 tablet (0.5mg) in the evening. May give via tube if needed enoxaparin (LOVENOX) 80 Inject 0.8 mL under the 60 Syringe 4 2017 mg syrg skin twice daily. LORazepam (ATIVAN) 1 mg Take 0.5-1 tablets by 60 tablet 0 02/14/2018 tablet mouth every 8 hours as needed for Nausea, Vomiting or Other... (anxiety). May give via tube if needed nicotine (NICODERM CQ Apply 1 patch to top of 42 patch 0 02/15/2018 03/29/2018 STEP 1) 21 mg/day skin as directed daily patchIndications: SMOKING for 42 days. CESSATION ondansetron (ZOFRAN) 8 mg Take 1 tablet by mouth 45 tablet 3 2017 tablet every 8 hours as needed for Nausea or Vomiting. May give via tube if needed polyethylene glycol 3350 Take 1 packet by mouth 02/14/2018 (MIRALAX) 17 g packet twice daily. May administer via tube if needed prochlorperazine maleate Take 1 tablet by mouth 45 tablet 3 2017 (COMPAZINE) 10 mg tablet every 6 hours as needed for Nausea or Vomiting. May give via tube if needed senna/docusate Take 1 tablet by mouth 02/14/2018 (SENOKOT-S) 8.6/50 mg twice daily. May crush tablet and give via tube if needed simethicone (MYLICON) 80 Chew 1 tablet by mouth 30 tablet 0 2017 mg chew tablet every 6 hours as needed for Flatulence. traMADol (ULTRAM) 50 mg Take 0.5-1 tablets by 30 tablet 0 02/14/2018 tablet mouth every 6 hours as needed. For pain. May crush and give through tube if needed as of this encounter Progress Notes * Hilda De León, RN - 02/14/2018 12:05 PM CDT Kelvin Mezaers discharged on 02/14/2018. . Discharge instructions reviewed with patient and family. Valuables returned: n/a . Home medications: n/a . Functional assessment at discharge complete: Yes . Pt left unit via wheelchair accompanied by MANAGER SECURITY and family for d/c to home. Complete d/c teaching provided including medication administration, lovenox administration, gtube care, and follow up appt with written instructions given to patient. Patient verbalizes understanding of all teaching. Paper scripts given to patient prior to leaving unit. * Nayana Meeks MS,CCC-TECHNOLOGY ASSISTANT - 02/14/2018 10:57 AM CDT SPEECH-LANGUAGE PATHOLOGY NO TREATMENT NOTE Chart reviewed and made contact with RN and pt/family. Pt with limited PO intake but tolerating well per report. Pt preparing for dc this date. Reviewed swallow precautions and recommendations. Pt verbalized understanding and agreement. RECOMMENDATIONS: Regular diet with thin liquids. PEG to supplement nutrition/hydration PO meds as tolerated Swallow Precautions: 100% supervision, small bites/sips, alternate bites/sips Frequent oral care to reduce risk of aspirating bacteria in oral secretions Assist pt with other means of communication (e.g. Writing) TECHNOLOGY ASSISTANT will follow to ensure diet tolerance. May benefit from TECHNOLOGY ASSISTANT upon dc in the future for speaking valve Therapist: Nayana Meeks MS,CCC-TECHNOLOGY ASSISTANT [id number] Date: 02/14/2018 * Omi Banda MD - 02/14/2018 9:20 AM CDT Formatting of this note may be different from the original. General Progress Note Name: Kelvin Zaldivar Today's Date: 02/14/2018 Admission Date: 01/24/2018 LOS: 21 days Assessment/Plan: Active Problems: Neck mass SVC (superior vena cava obstruction) Leukocytosis Hyponatremia Tobacco abuse Carcinoma of unknown origin (HCC) Airway compromise Anxiety Acute and chronic respiratory failure with hypoxia (HCC) Acute deep vein thrombosis (DVT) of both upper extremities (HCC) Adenocarcinoma of Unknown Primary: - CT N/C/A/P at OSH showed 10.8cm R supraclavicular mass, no discrete thyroid mass, infiltrating mass involving the mediastinum, subcarinal & hilar regions b/ l. mass partially encases the ascending aorta & almost completely encases the main pulmonary artery. trachea is also encompassed & is narrowed laterally to 6 mm, small R pleural effusion, sclerotic foci in several upper thoracic vertebral bodies, suspicious for metastatic disease. - MRI brain 01/22 (OSH) - unremarkable - S/p Bx by IR on 01/24. Pathology showed poorly differentiated carcinoma - S/p simulation with Rad Onc on 01/31. Has 20 fractions remaining of XRT. Patient wants to continue treatment close to home. Rad Onc will send a referral there. - Received 1st cycle of Cisplatin/Etopioside on (02/03). Plan for q21 days in concurrence with XRT. Acute Hypoxic Respiratory Failure: Thought to be mostly related to atelectasis after PEG placement vs pneumonia. Required ventilation with ICU care. He received abx that are now tapered off to Augmentin. Currently on Trach shield with PiO2 21%. Acute Bilateral UEs DVTs: Found on Dopplers on 02/06/18. Started on Therapeutic Lovenox. Airway Compromise: S/p trach placement by ENT on 01/24. Trach does not pass through the area of compression. TECHNOLOGY ASSISTANT following. Anxiety: Due to new diagnosis. Psych evaluated the patient. Currently on Ativan and Trazodone. Psych added scheduled Klonopin too for scheduled treatment. Trach Site Bleeding (resolved): Occurred on 01/26 around trach site, no blood noted w/ suctioning. Managed w/ thrombin spray. Per ENT, if re-bleeds use Afrin soaked 4x4 or thrombin spray. Tobaccoism: Smokes 1.5ppd x 20 years. Some emphysematous changes on CT. On nicotine patch. Smoking cessation counseling High Risk Aspiration / On TF diet / Constipation: Has PEG (placed on 02/06 through IR) + TFs. TECHNOLOGY ASSISTANT following. Had a video swallow on 02/10 and was advanced to FLD then Mechanical soft diet. He had issues with constipation and lack of tolerance of TFs. Hyponatremia (resolved): resolved now/ Na is normal. Leukocytosis, now with chemo-induced Pancytopenia: Infectious workup throughout this admission has been negative. Now has pancytopenia, mostly related to the recent chemo. PLAN: - Tolerating Isosource well. TF arranged through [facility]. - Ongoing teaching today about trach care and TF management. - We were not able to have home health set up due to insurance/location. Patient was provided with a list of covered outpatient rehab places next to home that would be covered 100% via insurance. - F/U with Medical Oncology with Dr Jacobo on 02/20/18 at 8 am has been set up at [facility] ([facility] [place] [address], - [phone]) - Rad Onc to transfer treatment to closer to home. - Monitor for fevers and low threshold to restart abx if fever recurs (now that the patient is neutropenic). - Cont Lovenox. - Cont to ensure good BMs. FEN: - No IVFs. - Replace lytes prn. - Regular diet and TFs. PPx: - SCDs. Therapeutic Lovenox. Code: - Full code. Dispo: - DC home today. Plan was discussed in length with the patient. All questions were answered to his best satisfaction. The patient has complex medical problems requiring inpatient interventions, represented by the above problems. I spent more than 30 minutes evaluating the patient, formulating plan, reviewing medical chart, directing medication management, reviewing vitals, labs and radiology results and coordinating discharge. More than 50% of the time was spent in [id number] contact with the patient at bedside. Omi Banda MD Medical Oncology Hospitalist [id number] Subjective Patient is doing ok today. No acute events overnight. No new complains. Tolerating XRT well. Patient and SO feel comfortable caring for trach and PEG. TF arranged through [facility]. No bleeding. ROS: No CP, SOA, cough, abd pain, N/V, dysuria, hematuria, chills or night sweats. Medications Scheduled Meds: clonazePAM (KLONOPIN) tablet 0.5 mg 0.5 mg Oral QHS And clonazePAM (KLONOPIN) tablet 0.25 mg 0.25 mg Oral QDAY enoxaparin (LOVENOX) syringe 80 mg 1 mg/kg Subcutaneous BID nicotine (NICODERM CQ STEP 1) 21 mg/day patch 1 patch 1 patch Transdermal QDAY polyethylene glycol 3350 (MIRALAX) packet 17 g 1 packet Oral BID senna/docusate (SENOKOT-S) solution 10 mL 10 mL Per NG tube BID Continuous Infusions: PRN and Respiratory Meds:acetaminophen Q6H PRN, albuterol 0.5% QID PRN, fentaNYL citrate PF Q1H PRN, fentaNYL citrate PF QDAY PRN, ipratropium bromide QID PRN, LORazepam (ATIVAN) injection TID PRN, LORazepam (ATIVAN) injection QDAY PRN, ondansetron (ZOFRAN) IV Q6H PRN, pancrelipase 20,000 Units/ sodium bicarbonate 650 mg(#) PRN (Capacitor Assembler from Rx), prochlorperazine Q6H PRN, simethicone Q6H PRN, traMADol Q6H PRN Objective: Vital Signs: Last Filed Vital Signs: 24 Hour Range BP: 111/67 (02/14 531) Temp: 36.8 C (98.3 F) (02/14 531) Pulse: 103 (02/14 546) Respirations: 18 PER MINUTE (02/14 546) SpO2: 93 % (02/14 546) O2 Delivery: Trach Shield (02/14 531) BP: (109-113)/(53-67) Temp: [36.6 C (97.8 F)-37.8 C (100.1 F)] Pulse: [102-121] Respirations: [16 PER MINUTE-22 PER MINUTE] SpO2: [90 %-95 %] O2 Delivery: Trach Shield Intensity Pain Scale 0-10 (Pain 1): 3 (02/13/182124) Vitals: 02/06/18 1436 02/07/18 0800 02/14/18 0531 Weight: 79.6 kg (175 lb 7.8 oz) 74.1 kg (163 lb 5.8 oz) 72.5 kg (159 lb 13.3 oz ) Intake/Output Summary: (Last 24 hours) Intake/Output Summary (Last 24 hours) at 02/14/18 0920 Last data filed at 02/14/18 0731 Gross per 24 hour Intake 2040 ml Output 750 ml Net 1290 ml Stool Occurrence: 1 Physical Exam General: Alert, cooperative, no distress Neck: Supple, symmetrical, trach in place, no adenopathy, no carotid bruit and no JVD Lungs: Decreased air entry bilaterally, no wheezing, no crackles no rales. Heart: Regular rate and rhythm, S1, S2 normal, no murmur, click rub or gallop Abdomen: Soft, non-tender. Bowel sounds normal. PEG in place. No masses. No organomegaly. Extremities: Extremities normal, atraumatic, no cyanosis or edema Pulses: 2+ and symmetric, all extremities Neurologic: A&O x3, CN II-XII intact, PERRLA, EOMI intact, No focal deficits. Lab Review 24-hour labs: Results for orders placed or performed during the hospital encounter of (from the past 24 hour(s)) CBC Collection Time: 02/13/18 2:30 PM Result Value Ref Range White Blood Cells 0.8 (LL) 4.5 - 11.0 K/UL RBC 3.16 (L) 4.4 - 5.5 M/UL Hemoglobin 9.5 (L) 13.5 - 16.5 GM/DL Hematocrit 27.4 (L) 40 - 50 % MCV 86.8 80 - 100 FL MCH 30.1 26 - 34 PG MCHC 34.7 32.0 - 36.0 G/DL RDW 12.8 11 - 15 % Platelet Count 67 (L) 150 - 400 K/UL MPV 7.3 7 - 11 FL CBC AND DIFF Collection Time: 02/14/18 2:10 AM Result Value Ref Range White Blood Cells 0.6 (LL) 4.5 - 11.0 K/UL RBC 3.03 (L) [...] Platelet Estimate MOD DEC Absolute Neutrophil Count Manual 0.34 (L) 1.8 - 7.0 K/UL COMPREHENSIVE METABOLIC PANEL Collection Time: 02/14/18 2:10 AM Result Value Ref Range Sodium 132 (L) 137 [...] - 12 eGFR Non >60 >60 mL/min eGFR >60 >60 mL/min MAGNESIUM Collection Time: 02/14/18 2:10 AM Result Value Ref Range Magnesium 1.7 1.6 - 2.6 mg/dL PHOSPHORUS Collection Time: 02/14/18 2:10 AM Result Value Ref Range Phosphorus 2.8 2.0 - 4.0 MG/DL Point of Care Testing (Last 24 hours) Glucose: 96 (02/14/18 0210) Radiology and other Diagnostics Review: Pertinent radiology reviewed. Omi Banda MD Pager [phone] * Luis Hyde MD - 02/14/2018 8:54 AM CDT Formatting of this note may be different from the original. End of Treatment Summary Note Date: 02/14/2018 Kelvin Zaldivar is a 42 y.o. male. Treatment Data Summary: Site Treatment Technique Treatment dates Dose/ Fraction (cGy) Total prescribed Dose (cGy) Total # of fractions # missed days Rt neck and mediastinum 3D-EXTENSION COURSE COORDINATOR 02/01/2018 - 02/06/2018 300 1200 4 1 Rt neck and mediastinum IMRT 02/07/2018 - 02/14/2018 200 1200 6 0 Mr. Zaldivar is a 42 y.o.malewith a PMH of tobaccoism with ~30 pack year hx. He presented after transfer from [facility] in [place] after evaluation for dysphagia &voice hoarseness revealed b/l paralyzed vocal cords. CT neck showed large R sided mass. CT c/a/p showed infiltrating mass involving the mediastinum, subcarinal &hilar regions that is narrowing the trachea as well as encompassing the pulm artery &ascending aorta. MRI brain was normal. There was no evidence of distant sites of disease. ENT placed a trach on 01/24 but were unable to completely bypass the area of narrowing. FNA was performed by IR on 01/24 w/ pathology consistent with poorly differentiated carcinoma. Unfortunately, immunostains were negative and the origin of the tumor was unable to be identified. His case was discussed in tumor board, and consensus was for concurrent chemoradiation to this mass. He was started urgently with radiation to his large mediastinal/neck mass to relieve his tracheal compression. He received 4 fractions of 3 Gy (12 Gy total) using 3D-EXTENSION COURSE COORDINATOR. Concurrent chemotherapy was then initiated with cisplatin/ etoposide. At this point he was switched to an IMRT plan, of which he completed another 6 fractions with 2 Gy daily fractions. He has thus received a total dose of 24 Gy in 10 fractions. We had planned to take him to a total of 64 Gy with his IMRT plan (an additional 20 fractions remains on his revised plan); this would allow the maximum spinal cord dose on the summed plan to be less than the recommended dose of 50 Gy. He has tolerated radiation well thus far. After his initial 3 fractions, he was transferred back to the ICU due to concern for respiratory failure, possible from erin-tumoral edema; he was quite short of breath laying on the treatment table. He was started on steroids and placed on PEEP. His respiratory status improved, and he has been stable without further shortness of breath. He was transferred back to the floor 02/11 and has had no further issues with radiation. After discussion with the patient, he wishes to continue further care closer to home. He has follow-up set up with medical oncology locally. We discussed his case with radiation oncology locally and they plan to re-start treatment locally as well. Mr. Zaldivar was in agreement with this plan. Follow Up: Kelvin Zaldivar will be scheduled for a follow up with radiation oncology in [place], [place]. Luis Hyde MD PGY-3 Radiation Oncology [facility] [id number] Associated attestation - Pasha Wood MD - 02/17/2018 8:17 AM CDT Formatting of this note may be different from the original. ATTESTATION I personally performed the torres portions of the E/M visit, discussed case with resident and concur with resident documentation of history, physical exam, assessment, and treatment plan unless otherwise noted. Staff name: Pasha Wood MD Date: 02/17/2018 * Miguel Wood, PT - 02/14/2018 8:34 AM CDT PHYSICAL THERAPY NOTE PT treatment attempted. Pt off floor at radiation therapy. Physical Therapy will continue to follow with skilled intervention as indicated. Therapist: Miguel Wood, CHAPIS Date: 02/14/2018 * Hilda De León, JOSE G - 02/14/2018 7:55 AM CDT Patient left the unit with transport for radiation oncology. * Mari Foley, JOSE G - 02/14/2018 2:38 AM CDT Pt's 0210 WBC resulted at 0.6. Med Onc Private team made aware. Will CTM * Mame Willoughby, JOSE G - 02/13/2018 5:[address] Banda made aware that patient would not be able to finish all 6 feedings today due to nausea/vomiting. stated to just get in what would could. Will implement. Dr. Banda also made aware about red clots with a mucous consistency still coming out of patients trach. No new orders will continue to monitor. * Omi Banda MD - 02/13/2018 2:31 PM CDT Formatting of this note may be different from the original. General Progress Note Name: Kelvin Zaldivar Today's Date: 02/13/2018 Admission Date: 01/24/2018 LOS: 20 days Assessment/Plan: Active Problems: Neck mass SVC (superior vena cava obstruction) Leukocytosis Hyponatremia Tobacco abuse Carcinoma of unknown origin (HCC) Airway compromise Anxiety Acute and chronic respiratory failure with hypoxia (HCC) Acute deep vein thrombosis (DVT) of both upper extremities (HCC) Adenocarcinoma of Unknown Primary: - CT N/C/A/P at OSH showed 10.8cm R supraclavicular mass, no discrete thyroid mass, infiltrating mass involving the mediastinum, subcarinal & hilar regions b/ l. mass partially encases the ascending aorta & almost completely encases the main pulmonary artery. trachea is also encompassed & is narrowed laterally to 6 mm, small R pleural effusion, sclerotic foci in several upper thoracic vertebral bodies, suspicious for metastatic disease. - MRI brain 01/22 (OSH) - unremarkable - S/p Bx by IR on 01/24. Pathology showed poorly differentiated carcinoma - S/p simulation with Rad Onc on 01/31. Has 21 fractions remaining of XRT. - Received 1st cycle of Cisplatin/Etopioside on (02/03). Plan for q21 days in concurrence with XRT. Acute Hypoxic Respiratory Failure: Thought to be mostly related to atelectasis after PEG placement vs pneumonia. Required ventilation with ICU care. He received abx that are now tapered off to Augmentin. Currently on Trach shield with PiO2 21%. Acute Bilateral UEs DVTs: Found on Dopplers on 02/06/18. Started on Therapeutic Lovenox. Airway Compromise: S/p trach placement by ENT on 01/24. Trach does not pass through the area of compression. TECHNOLOGY ASSISTANT following. Anxiety: Due to new diagnosis. Psych evaluated the patient. Currently on Ativan and Trazodone. Psych added scheduled Klonopin too for scheduled treatment. Trach Site Bleeding (resolved): Occurred on 01/26 around trach site, no blood noted w/ suctioning. Managed w/ thrombin spray. Per ENT, if re-bleeds use Afrin soaked 4x4 or thrombin spray. Tobaccoism: Smokes 1.5ppd x 20 years. Some emphysematous changes on CT. On nicotine patch. Smoking cessation counseling High Risk Aspiration / On TF diet / Constipation: Has PEG (placed on 02/06 through IR) + TFs. TECHNOLOGY ASSISTANT following. Had a video swallow on 02/10 and was advanced to FLD then Mechanical soft diet. He had issues with constipation and lack of tolerance of TFs. Hyponatremia (resolved): resolved now/ Na is normal. Leukocytosis, now with chemo-induced Pancytopenia: Infectious workup throughout this admission has been negative. Now has pancytopenia, mostly related to the recent chemo. PLAN: - Having nausea and vomiting with Nutren feed. Will switch back to Isosource. - Ongoing teaching today about trach care and TF management. - We were not able to have home health set up due to insurance/location. Patient was provided with a list of covered outpatient rehab places next to home that would be covered 100% via insurance. - F/U with Medical Oncology with Dr Jacobo on 02/20/18 at 8 am has been set up at [facility] ([place] [address], - ) - Rad Onc to work on transferring treatment to closer to home. - Monitor for fevers and low threshold to restart abx if fever recurs (now that the patient is neutropenic). - Cont Lovenox. Patient has 12$ copay. - Cont to ensure good BMs. FEN: - No IVFs. - Replace lytes prn. - Regular diet and TFs. PPx: - SCDs. Therapeutic Lovenox. Code: - Full code. Dispo: - Cont care to Onc-Private team. Anticipate discharge tomorrow after Radiation. Plan was discussed in length with the patient. All questions were answered to his best satisfaction. The patient has complex medical problems requiring inpatient interventions, represented by the above problems. I spent more than 35 minutes evaluating the patient, formulating plan, reviewing medical chart, directing medication management, reviewing vitals, labs and radiology results. More than 50% of the time was spent in [id number] contact with the patient at bedside. Omi Banda MD Medical Oncology Hospitalist [id number] Subjective Patient is doing ok today. No acute events overnight. He had more nausea with Nutren feed. He had some blood come out with trach suctioning, but was self- limiting. SO at the bedside and reports teaching going well. Tolerating XRT well. ROS: No CP, SOA, cough, abd pain, N/V, dysuria, hematuria, chills or night sweats. Medications Scheduled Meds: clonazePAM (KLONOPIN) tablet 0.5 mg 0.5 mg Oral QHS And clonazePAM (KLONOPIN) tablet 0.25 mg 0.25 mg Oral QDAY enoxaparin (LOVENOX) syringe 80 mg 1 mg/kg Subcutaneous BID nicotine (NICODERM CQ STEP 1) 21 mg/day patch 1 patch 1 patch Transdermal QDAY polyethylene glycol 3350 (MIRALAX) packet 17 g 1 packet Oral BID senna/docusate (SENOKOT-S) solution 10 mL 10 mL Per NG tube BID Continuous Infusions: PRN and Respiratory Meds:acetaminophen Q6H PRN, albuterol 0.5% QID PRN, fentaNYL citrate PF Q1H PRN, fentaNYL citrate PF QDAY PRN, ipratropium bromide QID PRN, LORazepam (ATIVAN) injection TID PRN, LORazepam (ATIVAN) injection QDAY PRN, ondansetron (ZOFRAN) IV Q6H PRN, pancrelipase 20,000 Units/ sodium bicarbonate 650 mg(#) PRN (Capacitor Assembler from Rx), prochlorperazine Q6H PRN, simethicone Q6H PRN, traMADol Q6H PRN Objective: Vital Signs: Last Filed Vital Signs: 24 Hour Range BP: 110/64 (02/13 1400) Temp: 36.9 C (98.4 F) (02/13 1400) Pulse: 121 (02/13 1400) Respirations: 22 PER MINUTE (02/13 1400) SpO2: 93 % (02/13 1400) O2 Delivery: Trach Shield (02/13 1400) BP: (109-124)/(59-73) Temp: [36.5 C (97.7 F)-37.8 C (100 F)] Pulse: [103-121] Respirations: [16 PER MINUTE-22 PER MINUTE] SpO2: [92 %-95 %] O2 Delivery: Trach Shield Intensity Pain Scale 0-10 (Pain 1): 6 (02/12/18 1521) Vitals: 02/06/18 0400 02/06/18 1436 02/07/18 0800 Weight: 79.6 kg (175 lb 7.8 oz) 79.6 kg (175 lb 7.8 oz) 74.1 kg (163 lb 5.8 oz) Intake/Output Summary: (Last 24 hours) Intake/Output Summary (Last 24 hours) at 02/13/18 1431 Last data filed at 02/13/18 1347 Gross per 24 hour Intake 2710 ml Output 875 ml Net 1835 ml Stool Occurrence: 1 Physical Exam General: Alert, cooperative, no distress Neck: Supple, symmetrical, trach in place, no adenopathy, no carotid bruit and no JVD Lungs: Decreased air entry bilaterally, no wheezing, no crackles no rales. Heart: Regular rate and rhythm, S1, S2 normal, no murmur, click rub or gallop Abdomen: Soft, non-tender. Bowel sounds normal. PEG in place. No masses. No organomegaly. Extremities: Extremities normal, atraumatic, no cyanosis or edema Pulses: 2+ and symmetric, all extremities Neurologic: A&O x3, CN II-XII intact, PERRLA, EOMI intact, No focal deficits. Lab Review 24-hour labs: Results for orders placed or performed during the hospital encounter of (from the past 24 hour(s)) CBC AND DIFF Collection Time: 02/13/18 3:25 AM Result Value Ref Range White Blood Cells 1.4 (L) 4.5 - 11.0 K/UL RBC 3.23 (L) 4.4 - 5.5 M/UL Hemoglobin 9.9 (L) 13.5 - 16.5 GM/DL Hematocrit 28.1 (L) 40 - 50 % MCV 87.0 80 - 100 FL MCH 30.8 26 - 34 PG MCHC 35.4 32.0 - 36.0 G/DL RDW 12.7 11 - 15 % Platelet Count 69 (L) 150 - 400 K/UL MPV 7.3 7 - 11 FL Neutrophils 83 (H) 41 - 77 % Lymphocytes 13 (L) 24 - 44 % Monocytes 3 (L) 4 - 12 % Eosinophils 1 0 - 5 % Basophils 0 0 - 2 % Absolute Neutrophil Count 1.10 (L) 1.8 - 7.0 K/UL Absolute Lymph Count 0.20 (L) 1.0 - 4.8 K/UL Absolute Monocyte Count 0.00 0 - 0.80 K/UL Absolute Eosinophil Count 0.00 0 - 0.45 K/UL Absolute Basophil Count 0.00 0 - 0.20 K/UL COMPREHENSIVE METABOLIC PANEL Collection Time: 02/13/18 3:25 AM Result Value Ref Range Sodium 135 (L) 137 - 147 MMOL/L Potassium 3.8 3.5 - 5.1 MMOL/L Chloride 102 98 - 110 MMOL/L Glucose 94 70 - 100 MG/DL Blood Urea Nitrogen 19 7 - 25 MG/DL Creatinine 0.72 0.4 - 1.24 MG/DL Calcium 8.7 8.5 - 10.6 MG/DL Total Protein 6.4 6.0 - 8.0 G/DL Total Bilirubin 0.6 0.3 - 1.2 MG/DL Albumin 3.0 (L) 3.5 - 5.0 G/DL Alk Phosphatase 96 25 - 110 U/L AST (SGOT) 38 7 - 40 U/L CO2 25 21 - 30 MMOL/L ALT (SGPT) 94 (H) 7 - 56 U/L Anion Gap 8 3 - 12 eGFR Non >60 >60 mL/min eGFR >60 >60 mL/min MAGNESIUM Collection Time: 02/13/18 3:25 AM Result Value Ref Range Magnesium 1.7 1.6 - 2.6 mg/dL PHOSPHORUS Collection Time: 02/13/18 3:25 AM Result Value Ref Range Phosphorus 3.1 2.0 - 4.0 MG/DL Point of Care Testing (Last 24 hours) Glucose: 94 (02/13/18 0325) Radiology and other Diagnostics Review: Pertinent radiology reviewed. Omi Banda MD Pager [phone] * Jim Hill RN - 02/13/2018 2:13 PM CDT RN at bedside. Pt throwing up a yellowish-karimi color. Family concerned pt not tolerating tube feeds. Dr. Banda notified. Spoke with Jossy from [facility]. Jossy thought pt would benefit from reglan. Dr Banda notified. Will CTM. * Deya Melara, RN - 02/13/2018 2:00 PM CDT Family to nurses station asking that patient trach be suctioned. RN to bedside to suction patient. Upon suction, red clots with a mucous consistency coming from trach. Per patient this is a new finding for him. Spoke with RT on the phone, also a new finding per RT. RT to bedside. Patient suctioned by hot metal charger Jim with relief. Stat CBC ordered per Dr. Banda. Primary RN, Mame updated. * Stewart Webb, PT - 02/13/2018 11:10 AM CDT PHYSICAL THERAPY PROGRESS NOTE MOBILITY: Mobility Progressive Mobility Level: Walk in hallway Distance Walked (feet): 100 ft (+75) Level of Assistance: Stand by assistance Assistive Device: Walker Time Tolerated: 11-30 minutes Activity Limited By: Fatigue SUBJECTIVE: Subjective Significant hospital events: Transferred from OSH 01/24/[address] revealing large mass compressing airway, aortic arch and pulmonary artery, pathology revealed adenocarcinoma with unknown primary. S/P tracheostomy, remains high risk airway. G tube placed 02/05/18, post procedure patient with increased O2 requiements and transferred to ICU. Transfer back to floor 02/10. Mental / Cognitive Status: Alert;Oriented;Cooperative;Tracheostomy Persons Present: Family Pain: Patient has no complaint of pain Pain Interventions: Patient agrees to participate in therapy Comments: Patient feeling better today, wanting to walk. Ambulation Assist: Independent Mobility in Community without Device Patient Owned Equipment: None Home Situation: Lives with Family Type of Home: House Entry Stairs: 1-2 Stairs In-Home Stairs: No Stairs BED MOBILITY/TRANSFERS: Bed Mobility/Transfers Bed Mobility: Supine to Sit: Independent Bed Mobility: Sit to Supine: Independent Transfer Type: Sit to/from Stand Transfer: Assistance Level: To/From;Bed;Independent Transfer: Assistive Device: None End Of Activity Status: In Bed GAIT: Gait Gait Distance: 100 feet (+75) Gait: Assistance Level: Standby Assist Gait: Assistive Device: Roller Walker Gait: Descriptors: Pace: Slow;Swing-Through Gait;No balance loss Stairs: Number Climbed: 2 (platform steps) Stairs: Descriptors: Non-Reciprocal Stairs: Assistance Level: Standby Assist Stairs: Assistive Device: Roller Walker ASSESSMENT/PROGRESS: Assessment/Progress Impaired Mobility Due To: Decreased Strength;Decreased Activity Tolerance; Deconditioning;Medical Status Limitation Assessment/Progress: Should Improve w/ Continued PT Comments: Patient did very well and is improving with each visit. Should be safe to discharge home tomorrow if cleared by team. AM-PAC 6 Clicks Basic Mobility Inpatient Turning from your back to your side while in a flat bed without using bed rails : None Moving from lying on your back to sitting on the side of a flatbed without using bedrails : None Moving to and from a bed to a chair (including a wheelchair): None Standing up from a chair using your arms (e.g. wheelchair, or bedside chair): None To walk in hospital room: None Climbing 3-5 steps with a railing: None Raw Score: 24 Standardized (T-scale) Score: 57.68 Basic Mobility CMS 0-100%: 0 CMS G Code Modifier for Basic Mobility: CH GOALS: Goals Goal Formulation: With Patient Time For Goal Achievement: 7 days Pt Will Go Supine To/From Sit: w/ Stand By Assist Pt Will Transfer Sit to Stand: w/ Stand By Assist Pt Will Ambulate: Greater than 200 Feet, w/ Stand By Assist, w/ Walker Pt Will Go Up / Down Stairs: 1-2 Stairs, w/ Stand By Assist PLAN: Plan Treatment Interventions: Mobility Training;Strengthening;Balance Activities; Endurance Training Plan Frequency: 5 Days per Week Comments: Patient to walk 2 more times today with nursing staff, patient also has exercises to work on. RECOMMENDATIONS: PT Discharge Recommendations PT Discharge Recommendations: Home Equipment Recommendations: Roller Walker Patient requires the use of a walker with wheels to complete ADLs in the home including meal preparation, ambulation the bathroom for toileting, bathing and grooming, and safe home mobility. Patient is unable to complete these ADLs with a cane or crutch. PT Plan for Next Visit: Walk half lap to full lap without stopping. Therapist: Stewart Webb DPT Date: 02/13/2018 * Nayana Meeks MS,CCC-TECHNOLOGY ASSISTANT - 02/13/2018 9:24 AM CDT SPEECH-LANGUAGE PATHOLOGY DAILY TREATMENT NOTE Patient seen 1x this date. Documentation reflects all daily treatment sessions. SUMMARY OF THERAPY SESSION: Pt seen for ongoing dysphagia management. Pt tolerated trials of thin liquid and regular solids solids (toast with jelly) with no overt s/s of penetration/aspiration. Timely and efficient mastication. No significant oral residue noted. Education provided to pt/significant other regarding monitoring for s/s aspiration or fatigue, emphasis on use of peg if fatigued. Pt continues to communicate effectively via writing/mouthing words. Significant other asking regarding use of speaking valve. TECHNOLOGY ASSISTANT had previously signed off as pt not appearing to be candidate at this time due to location of mass. Did not trial valve at this time as no current orders; however, did trial finger occlusion and pt unable to initiate voicing or redirect airflow. Significant other requesting additional information regarding potentially assessing this at home. Encouraged use of finger occlusion by pt briefly for quick assessment. Encouraged pt to contact physician for repeat TECHNOLOGY ASSISTANT orders if he is dave to redirect airflow/initiate voicing. Discussed with member of primary team. Will recommend upgrade diet as tolerated to regular/thin. Will recommend home health/outpatient TECHNOLOGY ASSISTANT in the future as indicated for speaking valve. TECHNOLOGY ASSISTANT will follow up prior to dc to ensure diet tolerance. Do not anticipate ongoing TECHNOLOGY ASSISTANT needs in near future for dysphagia. Reviewed s/s aspiration for pt/family to monitor in home environment. RECOMMENDATIONS: Regular diet with thin liquids. PEG to supplement nutrition/hydration PO meds as tolerated Swallow Precautions: 100% supervision, small bites/sips, alternate bites/sips Frequent oral care to reduce risk of aspirating bacteria in oral secretions Assist pt with other means of communication (e.g. Writing) TECHNOLOGY ASSISTANT will follow to ensure diet tolerance. May benefit from TECHNOLOGY ASSISTANT upon dc in the future for speaking valve Goal : Pt will participate in ongoing assessment of swallow provided minimal cues. Met Comment: Pt accepted trials of thin liquids and regular solids. Pt tolerated trials with no overt s/s of penetration/aspiration, adequate mastication, and no significant oral residue. Continue goal at this level to ensure accuracy Goal : Pt will tolerate PO trials for the purpose of diet advancement with minimal cues. Met Comment: See above Continue goal at this level to ensure accuracy Goal: Pt will tolerate a mechanical soft diet with thin liquids with less than 10% s/s of penetration/aspiration. Goal met. New goal: Pt will tolerate regular diet with thin liquids with less than 10% overt s/s aspiration. PLAN / RECOMMENDATIONS: Continue treatment 3x/week and Patient would benefit from further speech therapy post acute hospitalization. Therapist: Nayana Meeks MS,[facility]-TECHNOLOGY ASSISTANT [id number] Date: 02/13/2018 * Carrol Rogers, RT - 02/13/2018 4:32 AM CDT Formatting of this note may be different from the original. RESPIRATORY THERAPY ADULT PROTOCOL EVALUATION RESPIRATORY PROTOCOL PLAN Medications Albuterol/Ipratropium: Neb PRN Note: If indicated by protocol, medication orders will be placed by therapist. Procedures Tracheostomy Suction: Q4h & PRN IPPB: Place a nursing order for "IS Q1h While Awake" for any of Lung Expansion indicators Oxygen/Humidity: O2 to keep SpO2 > 92%;Warm: continuous Monitoring: Pulse oximetry BID & PRN PATIENT EVALUATION RESULTS Chart Review * Pulmonary Hx: Smoking cessation < 8 weeks OR still smoking OR > 20 pack/yr hx (PEFR) OR occasional use of bronchodilator (AM) (smoker, Trach) * Surgical Hx: Thoracic or abdominal surgery/injury (LE) (Trach/Neck mass) * Chest X-Ray: Clear OR not available (no current chest x-ray) * PFT/Oxygenation: FEV1, PEFR > 80% predicted OR physically unable to perform OR Pa02 >80 RA OR Sp02 >95% RA (GIN 21%) Patient Assessment * Respiratory Pattern: Regular pattern and rate OR good chest excursion with deep breathing * Breath Sounds: Clear and able to auscultate bases posteriorly * Cough / Sputum: Good effective cough OR occasional or minimal sputum OR thin sputum * Mental Status: Alert, oriented, cooperative * Activity Level: Ambulatory with assistance Priority Index Total Points: 7 Points * Priority Index: 1+ PRIORITY INDEX GUIDELINES* Priority Points 1 0-9 points 2 9-18 points 3 > 18 points + Pulm Dx or Home Rx *Higher points indicate higher acuity. Therapist: Carrol Rogers, RT Date: 02/13/2018 Torres AC=Airway clearance AM=Aerosolized medication BA=Jet aerosol DB&C=Deep breathe & cough FEV1=Forced expiratory volume in first second) IC=Inspiratory capacity LE=Lung expansion MDI=Metered dose inhaler Neb=Nebulizer O2=Oxygen Oxim=Oximetry PEFR=Peak expiratory flow rate [employer]=Rapid Response Team * James Leahy, PT - 02/12/2018 3:02 PM CDT PHYSICAL THERAPY NOTE PT to patient room and patient agreeable to walk. Upon sitting edge of bed patient became nauseous with dry heaving. RN summoned for anti-emesis medication and given. This therapist returned thirty minutes later and patient declined ambulation on the account of continued nausea. Patient agreeable to ambulate with staff writer later when feeling better. PT will follow and provide intervention as appropriate. Therapist: James Leahy PT Date: 02/12/2018 * Omi Banda MD - 02/12/2018 11:01 AM CDT Formatting of this note may be different from the original. General Progress Note Name: Kelvin Zaldivar Today's Date: 02/12/2018 Admission Date: 01/24/2018 LOS: 19 days Assessment/Plan: Active Problems: Neck mass SVC (superior vena cava obstruction) Leukocytosis Hyponatremia Tobacco abuse Carcinoma of unknown origin (HCC) Airway compromise Anxiety Acute and chronic respiratory failure with hypoxia (HCC) Acute deep vein thrombosis (DVT) of both upper extremities (HCC) Adenocarcinoma of Unknown Primary: - CT N/C/A/P at OSH showed 10.8cm R supraclavicular mass, no discrete thyroid mass, infiltrating mass involving the mediastinum, subcarinal & hilar regions b/ l. mass partially encases the ascending aorta & almost completely encases the main pulmonary artery. trachea is also encompassed & is narrowed laterally to 6 mm, small R pleural effusion, sclerotic foci in several upper thoracic vertebral bodies, suspicious for metastatic disease. - MRI brain 01/22 (OSH) - unremarkable - S/p Bx by IR on 01/24. Pathology showed poorly differentiated carcinoma - S/p simulation with Rad Onc on 01/31. Has 22 fractions remaining of XRT. - Received 1st cycle of Cisplatin/Etopioside on (02/03). Plan for q21 days in concurrence with XRT. Acute Hypoxic Respiratory Failure: Thought to be mostly related to atelectasis after PEG placement vs pneumonia. Required ventilation with ICU care. He received abx that are now tapered off to Augmentin. Currently on Trach shield with PiO2 21%. Acute Bilateral UEs DVTs: Found on Dopplers on 02/06/18. Started on Therapeutic Lovenox. Airway Compromise: S/p trach placement by ENT on 01/24. Trach does not pass through the area of compression. TECHNOLOGY ASSISTANT following. Anxiety: Due to new diagnosis. Psych evaluated the patient. Currently on Ativan and Trazodone. Psych added scheduled Klonopin too for scheduled treatment. Trach Site Bleeding (resolved): Occurred on 01/26 around trach site, no blood noted w/ suctioning. Managed w/ thrombin spray. Per ENT, if re-bleeds use Afrin soaked 4x4 or thrombin spray. Tobaccoism: Smokes 1.5ppd x 20 years. Some emphysematous changes on CT. On nicotine patch. Smoking cessation counseling High Risk Aspiration / On TF diet / Constipation: Has PEG (placed on 02/06 through IR) + TFs. TECHNOLOGY ASSISTANT following. Had a video swallow on 02/10 and was advanced to FLD then Mechanical soft diet. He had issues with constipation and lack of tolerance of TFs. Hyponatremia (resolved): resolved now/ Na is normal. Leukocytosis, now with chemo-induced Pancytopenia: Infectious workup throughout this admission has been negative. Now has pancytopenia, mostly related to the recent chemo. PLAN: - Tolerating TFs. Switch formula to Nutren 2.0 per dietitian recs. - Patient and his SO to receive teaching for trach care and TFs tomorrow. - We were not able to have home health set up due to insurance/location. Patient was provided with a list of covered outpatient rehab places next to home that would be covered 100% via insurance. - F/U with Medical Oncology with Dr Jacobo on 02/20/18 at 8 am has been set up at [facility] [place] [address], Ph- [phone]) - Rad Onc SW to work on transferring treatment to closer to home. - Augmentin course done. Monitor for fevers and low threshold to restart abx if fever recurs (now that the patient is neutropenic). - Cont Lovenox. Patient has 12$ copay. - Cont to ensure good BMs. FEN: - No IVFs. - Replace lytes prn. - Mechanical soft diet and TFs. PPx: - SCDs. Therapeutic Lovenox. Code: - Full code. Dispo: - Cont care to Onc-Private team. Anticipate discharge Saturday after care teaching. Plan was discussed in length with the patient. All questions were answered to his best satisfaction. The patient has complex medical problems requiring inpatient interventions, represented by the above problems. I spent more than 35 minutes evaluating the patient, formulating plan, reviewing medical chart, directing medication management, reviewing vitals, labs and radiology results. More than 50% of the time was spent in [id number] contact with the patient at bedside. Omi Banda MD Medical Oncology Hospitalist [id number] Subjective Patient is doing ok today. No acute events overnight. Had a BM today. Tolerating TFs well. No N/V. No new complains. ROS: No CP, SOA, cough, abd pain, N/V, dysuria, hematuria, chills or night sweats. Medications Scheduled Meds: clonazePAM (KLONOPIN) tablet 0.5 mg 0.5 mg Oral QHS And clonazePAM (KLONOPIN) tablet 0.25 mg 0.25 mg Oral QDAY enoxaparin (LOVENOX) syringe 80 mg 1 mg/kg Subcutaneous BID filgrastim-sndz (ZARXIO) inj syringe 300 mcg 300 mcg Subcutaneous Q24H* nicotine (NICODERM CQ STEP 1) 21 mg/day patch 1 patch 1 patch Transdermal QDAY polyethylene glycol 3350 (MIRALAX) packet 17 g 1 packet Oral BID senna/docusate (SENOKOT-S) solution 10 mL 10 mL Per NG tube BID SODIUM CHLORIDE 0.9 % IJ SOLN (Cabinet Override) NOW Continuous Infusions: PRN and Respiratory Meds:acetaminophen Q6H PRN, albuterol 0.5% QID PRN, fentaNYL citrate PF Q1H PRN, fentaNYL citrate PF QDAY PRN, ipratropium bromide QID PRN, LORazepam (ATIVAN) injection TID PRN, LORazepam (ATIVAN) injection QDAY PRN, ondansetron (ZOFRAN) IV Q6H PRN, pancrelipase 20,000 Units/ sodium bicarbonate 650 mg(#) PRN (Capacitor Assembler from Rx), prochlorperazine Q6H PRN, simethicone Q6H PRN, traMADol Q6H PRN Objective: Vital Signs: Last Filed Vital Signs: 24 Hour Range BP: 106/64 (02/12 546) Temp: 37.3 C (99.1 F) (02/12 546) Pulse: 106 (02/12 546) Respirations: 16 PER MINUTE (02/12 546) SpO2: 92 % (02/12 546) O2 Delivery: None (Room Air) (02/12 546) BP: (106-121)/(61-68) Temp: [37.3 C (99.1 F)-38.2 C (100.8 F)] Pulse: [95-106] Respirations: [16 PER MINUTE-18 PER MINUTE] SpO2: [92 %-96 %] O2 Delivery: None (Room Air) Intensity Pain Scale 0-10 (Pain 1): 4 (02/12/18 0836) Vitals: 02/06/18 0400 02/06/18 1436 02/07/18 0800 Weight: 79.6 kg (175 lb 7.8 oz) 79.6 kg (175 lb 7.8 oz) 74.1 kg (163 lb 5.8 oz) Intake/Output Summary: (Last 24 hours) Intake/Output Summary (Last 24 hours) at 02/12/18 1102 Last data filed at 02/12/18 1045 Gross per 24 hour Intake 1890 ml Output 500 ml Net 1390 ml Stool Occurrence: 1 Physical Exam General: Alert, cooperative, no distress Neck: Supple, symmetrical, trach in place, no adenopathy, no carotid bruit and no JVD Lungs: Decreased air entry bilaterally, no wheezing, no crackles no rales. Heart: Regular rate and rhythm, S1, S2 normal, no murmur, click rub or gallop Abdomen: Soft, non-tender. Bowel sounds normal. PEG in place. No masses. No organomegaly. Extremities: Extremities normal, atraumatic, no cyanosis or edema Pulses: 2+ and symmetric, all extremities Neurologic: A&O x3, CN II-XII intact, PERRLA, EOMI intact, No focal deficits. Lab Review 24-hour labs: Results for orders placed or performed during the hospital encounter of (from the past 24 hour(s)) CULTURE-BLOOD W/SENSITIVITY Collection Time: 02/11/18 2:08 PM Result Value Ref Range Battery Name BLOOD CULTURE Specimen Description BLOOD LEFT PORT Special Requests NONE Culture NO GROWTH 1 DAY Report Status CULTURE-BLOOD W/SENSITIVITY Collection Time: 02/11/18 2:10 PM Result Value Ref Range Battery Name BLOOD CULTURE Specimen Description BLOOD LEFT ANTECUBITAL Special Requests NONE Culture NO GROWTH 1 DAY Report Status CBC AND DIFF Collection Time: 02/12/18 3:45 AM Result Value Ref Range White Blood Cells 1.2 (L) 4.5 - 11.0 K/UL RBC 3.29 (L) 4.4 - 5.5 M/UL Hemoglobin 9.6 (L) 13.5 - 16.5 GM/DL Hematocrit 28.8 (L) 40 - 50 % MCV 87.8 80 - 100 FL MCH 29.2 26 - 34 PG MCHC 33.3 32.0 - 36.0 G/DL RDW 12.9 11 - 15 % Platelet Count 77 (L) 150 - 400 K/UL MPV 7.2 7 - 11 FL Neutrophils 80 (H) 41 - 77 % Lymphocytes 15 (L) 24 - 44 % Monocytes 2 (L) 4 - 12 % Eosinophils 3 0 - 5 % Basophils 0 0 - 2 % Absolute Neutrophil Count 0.90 (L) 1.8 - 7.0 K/UL Absolute Lymph Count 0.20 (L) 1.0 - 4.8 K/UL Absolute Monocyte Count 0.00 0 - 0.80 K/UL Absolute Eosinophil Count 0.00 0 - 0.45 K/UL Absolute Basophil Count 0.00 0 - 0.20 K/UL COMPREHENSIVE METABOLIC PANEL Collection Time: 02/12/18 3:45 AM Result Value Ref Range Sodium 133 (L) 137 - 147 MMOL/L Potassium 3.6 3.5 - 5.1 MMOL/L Chloride 101 98 - 110 MMOL/L Glucose 98 70 - 100 MG/DL Blood Urea Nitrogen 19 7 - 25 MG/DL Creatinine 0.62 0.4 - 1.24 MG/DL Calcium 8.8 8.5 - 10.6 MG/DL Total Protein 6.2 6.0 - 8.0 G/DL Total Bilirubin 0.7 0.3 - 1.2 MG/DL Albumin 3.0 (L) 3.5 - 5.0 G/DL Alk Phosphatase 106 25 - 110 U/L AST (SGOT) 61 (H) 7 - 40 U/L CO2 24 21 - 30 MMOL/L ALT (SGPT) 100 (H) 7 - 56 U/L Anion Gap 8 3 - 12 eGFR Non >60 >60 mL/min eGFR >60 >60 mL/min MAGNESIUM Collection Time: 02/12/18 3:45 AM Result Value Ref Range Magnesium 1.7 1.6 - 2.6 mg/dL PHOSPHORUS Collection Time: 02/12/18 3:45 AM Result Value Ref Range Phosphorus 2.7 2.0 - 4.0 MG/DL Point of Care Testing (Last 24 hours) Glucose: 98 (02/12/18 0345) Radiology and other Diagnostics Review: Pertinent radiology reviewed. Omi Banda MD Pager [phone] * Bandar Sandee - 02/12/2018 8:46 AM CDT OCCUPATIONAL THERAPY PROGRESS NOTE Patient Name: Kelvin Zaldivar Room/Bed: QT1695/01 Admitting Diagnosis: Neck/chest mass Neck mass Mobility Progressive Mobility Level: Sit on edge of bed Level of Assistance: Stand by assistance Time Tolerated: 0-10 minutes Activity Limited By: Shortness of air;Fatigue Subjective Precautions: Abdominal Binder;O2 Requirement;Falls Comments: Patiently supine in bed upon arrival. Patient able to communicate needs by mouthing words and stated he was waiting to get a radiation treatment this morning. Patient ended sitting EOB with nursing present as transport arrived to take patient to radiation. 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 Activity Tolerance Endurance: 2/5 Tolerates 10-20 Minutes Exercise Sitting Balance: 4/5 Moves/Returns Trunkal Midpoint 1-2 Inches in Multiple Planes Comment: Trach shield with humidified air in place. Education Persons Educated: Patient Teaching Methods: Provided Printed Instructions;Demonstration;Verbal Instruction Patient Response: Return Demonstration Topics: UE Exercises (Blue theraband) Home Exercise Program: Theraband therex Goal Formulation: With Patient Comments: Patient performed UE theraband resistive exercises sitting EOB, as patient was going to stand to demonstrate, transport arrived to take patient to radiation. Assessment Assessment: Decreased Endurance;Decreased High-Level ADLs Goal Formulation: Patient AM-PAC 6 Clicks Daily Activity Inpatient Putting on and taking off regular lower body clothes?: None Bathing (Including washing, rinsing, drying): A Little Toileting, which includes using toilet, bedpan, or urinal: A Little Putting on and taking off regular upper body clothing: None Taking care of personal grooming such as brushing teeth: None Eating meals?: A Lot Daily Activity Raw Score: 20 Standardized (t-scale) score: 42.03 CMS 0-100% Score: 38.32 CMS G Code Modifier: CJ Plan Treatment Interventions: Endurance Training;Patient/Family Training; Compensatory Technique Education OT Frequency: 3-5X/week Demonstrate UE theraband exercises standing (printed handout and blue theraband in room), Standing ADLs ADL Goals Patient Will Perform All ADL's: w/ Stand By Assist (using compensatory strategies) Functional Transfer Goals Pt Will Perform All Functional Transfers: w/ Stand By Assist (using compensatory strategies) OT Discharge Recommendations OT Discharge Recommendations: Inpatient vs Home with home health and family support Equipment Recommendations: (bath chair or sink bath method initially) Recommend ongoing assistance for: In and out of house, Transfers, Bed mobility, Ambulation, Stairs Therapist: JYOTI Childs Date: 02/12/2018 * Winsome Guido APRN - 02/11/2018 3:22 PM CDT Formatting of this note may be different from the original. Oncology Consult Progress Note Name: Kelvin Zaldivar Today's Date: 02/11/2018 Admission Date: 01/24/2018 LOS: 18 days Assessment/Plan: Active Problems: Neck mass SVC (superior vena cava obstruction) Leukocytosis Hyponatremia Tobacco abuse Carcinoma of unknown origin (HCC) Airway compromise Anxiety Acute and chronic respiratory failure with hypoxia (HCC) Acute deep vein thrombosis (DVT) of both upper extremities (HCC) High Grade Carcinoma - Diff dx including lymphoma, germ cell, thyroid malignancy - Presented with hoarse/scratchy throat, dysphonia, noted a palpable right lower neck mass, progressive dyspnea - OSH CT chest- 10.8 cm mass extending from neck to chest, compressing airway involving his aortic arch, encompassing his aorta and pulmonary artery - ENT, CTS, Rad onc consulted - Current tobacco use- 1.5 pack/day 20 + years - LDH elevated at 367, Beta HCG (wnl) 1, AFP (wnl) 2 - Testicular exam w/o mass - 01/24/18: Bronchoscopy, tracheostomy - 01/14/18: IR core biopsy of right supraclavicular mass - Flow cytometry negative for evidence of lymphoma - Pathology: 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 Awaiting additional staining - Adipose tissue, "right neck mass", biopsy: Poorly differentiated malignant neoplasm with necrosis, most compatible with high grade carcinoma, PDL1 20% positive OSH Imaging: - CT neck: right supraclavicular mass (10.8 cm) no discrete thyroid mass - CT neck- infiltrative soft tissue mass, extends to right supraclavicular region, involving mediastinal subcarinal, hilar regions, trachea narrowed - MRI Donald- negative for evidence of mass [facility] Radiology Review (per verbal report) - Diffuse right neck adenopathy, with significant trachea narrowing, diffuse lower neck adenopathy, separate from thyroid (no discrete thyroid mass seen) - Hilar, mediastinal small right pleural effusion, liver lesions too small to characterized, enlarged retroperitoneal lymph nodes Plan - Radiation oncology following, treatment ongoing, defer to radiation oncolgoy whether remainder of treatments can be completed closer to home or not - Cycle 2, Cisplatin + Etoposide due on 02/24/18 - Patient requesting to have care closer to home- have medical oncology follow up scheduled with Dr. Jacobo on 02/20/18 at [address] [address] - [phone] Nino Subjective Kelvin Zaldivar is a 42 y.o. male. No acute events overnight. Reports pain well controlled. No fever or chills. Reports anti-anxiety medication working. Medications Scheduled Meds: amoxicillin/K clavulanate (AUGMENTIN) tablet 875 mg 875 mg Per G Tube BID w/ meals clonazePAM (KLONOPIN) tablet 0.5 mg 0.5 mg Oral QHS And clonazePAM (KLONOPIN) tablet 0.25 mg 0.25 mg Oral QDAY enoxaparin (LOVENOX) syringe 80 mg 1 mg/kg Subcutaneous BID nicotine (NICODERM CQ STEP 1) 21 mg/day patch 1 patch 1 patch Transdermal QDAY polyethylene glycol 3350 (MIRALAX) packet 17 g 1 packet Oral BID senna/docusate (SENOKOT-S) solution 10 mL 10 mL Per NG tube BID Continuous Infusions: PRN and Respiratory Meds:albuterol 0.5% QID PRN, fentaNYL citrate PF Q1H PRN, fentaNYL citrate PF QDAY PRN, hydrOXYzine TID PRN, ipratropium bromide QID PRN, LORazepam (ATIVAN) injection TID PRN, LORazepam (ATIVAN) injection QDAY PRN , ondansetron (ZOFRAN) IV Q6H PRN, pancrelipase 20,000 Units/ sodium bicarbonate 650 mg(#) PRN (Capacitor Assembler from Rx), prochlorperazine Q6H PRN, simethicone Q6H PRN, traMADol Q6H PRN Objective Vital Signs: Last Filed Vital Signs: 24 Hour Range BP: 121/65 (02/12 1312) Temp: 38.2 C (100.8 F) (02/12 1312) Pulse: 101 (02/11 0913) Respirations: 18 PER MINUTE (02/12 1312) SpO2: 93 % (02/12 1312) O2 Delivery: Trach Shield (02/12 1312) SpO2 Pulse: 100 (02/10 1600) BP: (107-122)/(51-70) Temp: [36.9 C (98.4 F)-38.2 C (100.8 F)] Pulse: [91-105] Respirations: [16 PER MINUTE-18 PER MINUTE] SpO2: [92 %-98 %] O2 Delivery: Trach Shield Intensity Pain Scale 0-10 (Pain 1): 0 (02/10/18 1600) Vitals: 02/06/18 0400 02/06/18 1436 02/07/18 0800 Weight: 79.6 kg (175 lb 7.8 oz) 79.6 kg (175 lb 7.8 oz) 74.1 kg (163 lb 5.8 oz) Intake/Output Summary: (Last 24 hours) Intake/Output Summary (Last 24 hours) at 02/11/18 1523 Last data filed at 02/11/18 1312 Gross per 24 hour Intake 200 ml Output 815 ml Net -615 ml Stool Occurrence: 1 Review of Systems: A 14 point review of systems was negative except for: Constitutional: positive for fatigue Physical Exam General appearance: Alert, cooperative, no distress Head: Normocephalic, atraumatic Eyes: PERRL Neck: Tracheostomy Lungs: Non-labored, left chest port Heart: regular rate and rhythm Extremities: No edema Neurologic: No focal deficits Lab Review 24-hour labs: Results for orders placed or performed during the hospital encounter of (from the past 24 hour(s)) CBC AND DIFF Collection Time: 02/11/18 5:11 AM Result Value Ref Range White Blood Cells 2.0 (L) 4.5 - 11.0 K/UL RBC 3.32 (L) 4.4 - 5.5 M/UL Hemoglobin 10.2 (L) 13.5 - 16.5 GM/DL Hematocrit 29.0 (L) 40 - 50 % MCV 87.5 80 - 100 FL MCH 30.8 26 - 34 PG MCHC 35.2 32.0 - 36.0 G/DL RDW 13.0 11 - 15 % Platelet Count 102 (L) 150 - 400 K/UL MPV 7.1 7 - 11 FL Neutrophils 87 (H) 41 - 77 % Lymphocytes 9 (L) 24 - 44 % Monocytes 1 (L) 4 - 12 % Eosinophils 3 0 - 5 % Basophils 0 0 - 2 % Absolute Neutrophil Count 1.70 (L) 1.8 - 7.0 K/UL Absolute Lymph Count 0.20 (L) 1.0 - 4.8 K/UL Absolute Monocyte Count 0.00 0 - 0.80 K/UL Absolute Eosinophil Count 0.10 0 - 0.45 K/UL Absolute Basophil Count 0.00 0 - 0.20 K/UL COMPREHENSIVE METABOLIC PANEL Collection Time: 02/11/18 5:11 AM Result Value Ref Range Sodium 135 (L) 137 - 147 MMOL/L Potassium 3.6 3.5 - 5.1 MMOL/L Chloride 102 98 - 110 MMOL/L Glucose 100 70 - 100 MG/DL Blood Urea Nitrogen 18 7 - 25 MG/DL Creatinine 0.68 0.4 - 1.24 MG/DL Calcium 8.8 8.5 - 10.6 MG/DL Total Protein 6.2 6.0 - 8.0 G/DL Total Bilirubin 0.9 0.3 - 1.2 MG/DL Albumin 2.9 (L) 3.5 - 5.0 G/DL Alk Phosphatase 102 25 - 110 U/L AST (SGOT) 37 7 - 40 U/L CO2 26 21 - 30 MMOL/L ALT (SGPT) 60 (H) 7 - 56 U/L Anion Gap 7 3 - 12 eGFR Non >60 >60 mL/min eGFR >60 >60 mL/min MAGNESIUM Collection Time: 02/11/18 5:11 AM Result Value Ref Range Magnesium 1.8 1.6 - 2.6 mg/dL PHOSPHORUS Collection Time: 02/11/18 5:11 AM Result Value Ref Range Phosphorus 3.0 2.0 - 4.0 MG/DL Point of Care Testing (Last 24 hours) Glucose: 100 (02/11/18 0511) Radiology and other Diagnostics Review: Pertinent radiology reviewed. Winsome Guido, PRODUCTION MACHINIST [phone] * Felisa Alvarenga, OT - 02/11/2018 2:30 PM CDT Formatting of this note may be different from the original. OCCUPATIONAL THERAPY ASSESSMENT NOTE Patient Name: Kelvin Zaldivar Room[facility]Bed: [id number] Admitting Diagnosis: Neck/chest mass Neck mass Past Medical History: Diagnosis Date Tobacco abuse Significant hospital events: Transferred from OSH 01/24/[address] revealing large mass compressing airway, aortic arch and pulmonary artery, pathology revealed adenocarcinoma with unknown primary. S/P tracheostomy, remains high risk airway. G tube placed 02/05/18, post procedure patient with increased O2 requiements and transferred to ICU. Transfer back to floor 02/10. Mobility Progressive Mobility Level: Sit on edge of bed Level of Assistance: Stand by assistance Activity Limited By: Shortness of air Subjective Patient Stated Goals: Pt plans to go home with SO, who will be in for training for next 2 days, with DC hopefully on Saturday. Precautions: (abd binder, O2 req; fall risk; Gtube) Pain Location: (no pain reported this session) Comments: Pt currently receiving radiation. Discussion with family will determine if they stay at [facility] or elsewhere. 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 He completes supine to sit , and donns socks EOB, then performs grooming at EOB with set up in preparation for swallow evaluation with TECHNOLOGY ASSISTANT. Cleans dentures, washes face and hands. TECHNOLOGY ASSISTANT arrives for eval. Activity Tolerance Sitting Balance: 4/5 Moves/Returns Trunkal Midpoint 1-2 Inches in Multiple Planes (SOA with big postural changes as in reach to feet) Comment: 113/70 (MAP84). O2 SATS 93% with Trach shield with 15 liters per minute Cognition Overall Cognitive Status: (awake; alert; follows requests.) UE AROM Comment: completes general UE AROM with return demo Education Persons Educated: Patient Teaching Methods: Verbal Instruction Patient Response: Return Demonstration Topics: Energy Conservation;Home safety;ADL Compensatory Techniques Goal Formulation: With Patient Assessment Assessment: Decreased Endurance;Decreased High-Level ADLs Goal Formulation: Patient AM-PAC 6 Clicks Daily Activity Inpatient Putting on and taking off regular lower body clothes?: None Bathing (Including washing, rinsing, drying): A Little Toileting, which includes using toilet, bedpan, or urinal: A Little Putting on and taking off regular upper body clothing: None Taking care of personal grooming such as brushing teeth: None Eating meals?: A Lot Daily Activity Raw Score: 20 Standardized (t-scale) score: 42.03 CMS 0-100% Score: 38.32 CMS G Code Modifier: CJ Plan Treatment Interventions: Endurance Training;Patient/Family Training; Compensatory Technique Education OT Frequency: 3-5X/week Next session: stand at sink for grooming and endurance building (demonstrate HEP for standing tolerance) ADL Goals Patient Will Perform All ADL's: w/ Stand By Assist (using compensatory strategies) Functional Transfer Goals Pt Will Perform All Functional Transfers: w/ Stand By Assist (using compensatory strategies) OT Discharge Recommendations OT Discharge Recommendations: (plan is to DC with SO to home or [facility] after training) Equipment Recommendations: (bath chair or sink bath method initially) Recommend ongoing assistance for: In and out of house, Transfers, Bed mobility, Ambulation, Stairs Therapist: Felisa Luo, OTR [id number] Date: 02/11/2018 * Luna Mcclellan DO - 02/11/2018 11:48 AM CDT Psychiatry Consult Progress Note Mr. Zaldivar was seen in his hospital room. He is able to communicate through mouthing responses as well as writing responses. He reports that he still has some anxiety, but feels it is better than when he first arrived. Denies significant depression. Denies SI/HI/AH/VH. He reports his sleep is so-so. Denies racing heart. Does endorse episodic shortness of breath. He is agreeable to try scheduled dose of clonazepam to help further improve anxiety as he has found the lorazepam somewhat beneficial. Nursing staff note that he has significant anxiety when they ambulate around the unit and will start breathing faster. This has limited his mobility some degree. Review of Systems Constitutional: Positive for malaise/fatigue. Respiratory: Positive for shortness of breath. Had trach Gastrointestinal: Has peg tube Psychiatric/Behavioral: Negative for depression, hallucinations, memory loss and suicidal ideas. The patient is nervous/anxious and has insomnia. General/Constitutional: 42 y/o white male who appears his stated age. Dressed in hospital attire with appropriate grooming and hygiene. Eye Contact: good Behavior: calm and cooperative. Pleasant to talk to Speech: normal rate and rhythm when mouthing responses. Does not make any vocalizations. Mood: "ok" Affect: Reactive Thought Process: linear, logical, goal directed Thought Content: Denies Si/Hi Perception: Denies AH/Vh Associations: intact Insight: fair Judgement: fair Orientation: grossly intact Recent and remote memory: intact Attention span and concentration: appropriate Cognition: alert Language: fluent, Indonesian speaker Fund of knowledge/vocabulary: average Gait: unable to assess. Laying in bed. Moves extremities without issue. Psychiatric Assessment: 1. Adjustment reaction with anxious distress Recommendations: Feels his anxiety is somewhat improved, but continues to struggle with symptoms. he is agreeable to scheduling low dose of clonazepam to try and better address anxiety symptoms. Schedule Clonazepam 0.25 mg qam and 0.5 mg qhs. Monitor respirations. Has tolerated lorazepam thus far without issues. Continue prn lorazepam for time being, especially prior to radiation treatments. Will discontinue Hydroxyzine 25mg TID PRN as he has not used this. Reviewed labs. Discussed case with primary team. Please feel free to contact us with any additional questions or concerns by paging the consult team between 8am and 5pm on weekdays and between 8am and 3pm on weekends at [phone]. Otherwise, page the vice president medical affairs insurance verification specialist. DO Tj Harris Scott, PT - 02/11/2018 10:50 AM CDT PHYSICAL THERAPY PROGRESS NOTE MOBILITY: Mobility Progressive Mobility Level: Walk in hallway Distance Walked (feet): 75 ft (+110) Level of Assistance: Stand by assistance Assistive Device: Walker Time Tolerated: 11-30 minutes Activity Limited By: Fatigue;Shortness of air SUBJECTIVE: Subjective Significant hospital events: Transferred from OSH 01/24/[address] revealing large mass compressing airway, aortic arch and pulmonary artery, pathology revealed adenocarcinoma with unknown primary. S/P tracheostomy, remains high risk airway. G tube placed 02/05/18, post procedure patient with increased O2 requiements and transferred to ICU. Transfer back to floor 02/10. Mental / Cognitive Status: Alert;Oriented;Cooperative;Tracheostomy Pain: Patient has no complaint of pain Pain Interventions: Patient agrees to participate in therapy Comments: Patient resting in bed, on room air, trach shield off. Patient wanting to walk with PT. Ambulation Assist: Independent Mobility in Community without Device Patient Owned Equipment: None Home Situation: Lives with Family Type of Home: House Entry Stairs: 1-2 Stairs In-Home Stairs: No Stairs BED MOBILITY/TRANSFERS: Bed Mobility/Transfers Bed Mobility: Supine to Sit: Modified Independent;Head of Bed Elevated Bed Mobility: Sit to Supine: Modified Independent Transfer Type: Sit to/from Stand Transfer: Assistance Level: To/From;Bed;Modified Independent Transfer: Assistive Device: Roller Walker End Of Activity Status: In Bed;Nursing Notified;Instructed Patient to Use Call Light GAIT: Gait Gait Distance: 75 feet (+110) Gait: Assistance Level: Standby Assist;Safety Considerations Gait: Assistive Device: Roller Walker Gait: Descriptors: Pace: Slow;Swing-Through Gait;No balance loss Comments: Patient did well, likely could wean from walker soon. Activity Limited By: Complaint of Fatigue;SOA ASSESSMENT/PROGRESS: Assessment/Progress Impaired Mobility Due To: Decreased Strength;Decreased Activity Tolerance; Deconditioning;Medical Status Limitation Assessment/Progress: Should Improve w/ Continued PT Comments: Patient tolerates therapy well today but does need seated rest break due to fatigue. Patient is going to benefit from further ambulation and upright activity to improve endurance. Patient is safe to ambulate with nursing staff on the unit. If endurance continues to improve each day, patient likely will be safe to discharge home. AM-PAC 6 Clicks Basic Mobility Inpatient Turning from your back to your side while in a flat bed without using bed rails : None Moving from lying on your back to sitting on the side of a flatbed without using bedrails : None Moving to and from a bed to a chair (including a wheelchair): None Standing up from a chair using your arms (e.g. wheelchair, or bedside chair): None To walk in hospital room: None Climbing 3-5 steps with a railing: A Little Raw Score: 23 Standardized (T-scale) Score: 50.88 Basic Mobility CMS 0-100%: 16.55 CMS G Code Modifier for Basic Mobility: CI GOALS: Goals Goal Formulation: With Patient Time For Goal Achievement: 7 days Pt Will Go Supine To/From Sit: w/ Stand By Assist Pt Will Transfer Sit to Stand: w/ Stand By Assist Pt Will Ambulate: Greater than 200 Feet, w/ Stand By Assist, w/ Walker Pt Will Go Up / Down Stairs: 1-2 Stairs, w/ Stand By Assist PLAN: Plan Treatment Interventions: Mobility Training;Strengthening;Balance Activities; Endurance Training Plan Frequency: 5 Days per Week Comments: Will increase ambulation distance and work on stairs next visit. RECOMMENDATIONS: PT Discharge Recommendations PT Discharge Recommendations: Home Equipment Recommendations: Too early to be determined Comments: If able to wean from walker, will need no assistive device. Therapist: Stewart Webb DPT Date: 02/11/2018 * Alexandria Garcias RN - 02/11/2018 10:23 AM CDT I have reviewed the notes, assessment, and/or procedure performed by Felicita Pritchard RN and concur with her documentation unless otherwise noted. * Omi Banda MD - 02/11/2018 9:43 AM CDT Formatting of this note may be different from the original. General Progress Note Name: Kelvin Zaldivar Today's Date: 02/11/2018 Admission Date: 01/24/2018 LOS: 18 days Assessment/Plan: Active Problems: Neck mass SVC (superior vena cava obstruction) Leukocytosis Hyponatremia Tobacco abuse Carcinoma of unknown origin (HCC) Airway compromise Anxiety Acute and chronic respiratory failure with hypoxia (HCC) Acute deep vein thrombosis (DVT) of both upper extremities (HCC) Adenocarcinoma of Unknown Primary: - CT N/C/A/P at OSH showed 10.8cm R supraclavicular mass, no discrete thyroid mass, infiltrating mass involving the mediastinum, subcarinal & hilar regions b/ l. mass partially encases the ascending aorta & almost completely encases the main pulmonary artery. trachea is also encompassed & is narrowed laterally to 6 mm, small R pleural effusion, sclerotic foci in several upper thoracic vertebral bodies, suspicious for metastatic disease. - MRI brain 01/22 (OSH) - unremarkable - S/p Bx by IR on 01/24. Pathology showed poorly differentiated carcinoma - S/p simulation with Rad Onc on 01/31. Has 23 fractions remaining of XRT. - Received 1st cycle of Cisplatin/Etopioside on (02/03). Plan for q21 days in concurrence with XRT. Acute Hypoxic Respiratory Failure: Thought to be mostly related to atelectasis after PEG placement vs pneumonia. Required ventilation with ICU care. He received abx that are now tapered off to Augmentin. Currently on Trach shield with PiO2 21%. Acute Bilateral UEs DVTs: Found on Dopplers on 02/06/18. Started on Therapeutic Lovenox. Airway Compromise: S/p trach placement by ENT on 01/24. Trach does not pass through the area of compression. TECHNOLOGY ASSISTANT following. Anxiety: Due to new diagnosis. Psych evaluated the patient. Currently on Ativan and Trazodone. Trach Site Bleeding (resolved): Occurred on 01/26 around trach site, no blood noted w/ suctioning. Managed w/ thrombin spray. Per ENT, if re-bleeds use Afrin soaked 4x4 or thrombin spray. Tobaccoism: Smokes 1.5ppd x 20 years. Some emphysematous changes on CT. On nicotine patch. Smoking cessation counseling High Risk Aspiration / On TF diet / Constipation: Has PEG (placed on 02/06 through IR) + TFs. TECHNOLOGY ASSISTANT following. Had a video swallow on 02/10 and was advanced to FLD. He had issues with constipation and lack of tolerance of TFs. Hyponatremia (resolved): resolved now/ Na is normal. Leukocytosis, now with chemo-induced Pancytopenia: Infectious workup throughout this admission has been negative. Now has pancytopenia, mostly related to the recent chemo. PLAN: - Switch TF to bolus feeds. - Will arrange for the patient and his SO to receive teaching for trach care and TFs prior to discharge. - Patient is doing well from functional stand point. Would not meet criteria for rehab placement. We were not able to have home health set up due to insurance/location. Patient was provided with a list of covered outpatient rehab places next to home that would be covered 100% via insurance. - Discussed with the patient today. His goal is to continue treatment next to home. Will work on setting up follow up with Rad Onc and Med Onc next to home. - cont Augmentin for now. He spiked a temp so BCx were obtained. Will also send for UA. Would not change abx yet unless if he spikes again (would place back on Zosyn). - Cont Lovenox. Will send a script for choi check. - Evaluated bu TECHNOLOGY ASSISTANT, will advance to mechanical soft diet. - Cont to ensure good BMs. FEN: - No IVFs. - Replace lytes prn. - NPO with TFs. Hold TFs at MN. PPx: - SCDs. Lovenox. Code: - Full code. Dispo: - Transfer care to Onc-Private team. Plan was discussed in length with the patient. All questions were answered to his best satisfaction. The patient has complex medical problems requiring inpatient interventions, represented by the above problems. I spent more than 35 minutes evaluating the patient, formulating plan, reviewing medical chart, directing medication management, reviewing vitals, labs and radiology results. More than 50% of the time was spent in [id number] contact with the patient at bedside. Omi Banda MD Medical Oncology Hospitalist [id number] Subjective Patient is doing ok today. No acute events overnight. Had a BMs yesterday. Breathing comfortably. Eventually, wants to get treatment next to home. ROS: No CP, SOA, cough, abd pain, N/V, dysuria, hematuria, chills or night sweats. Medications Scheduled Meds: amoxicillin/K clavulanate (AUGMENTIN) tablet 875 mg 875 mg Per G Tube BID w/ meals enoxaparin (LOVENOX) syringe 80 mg 1 mg/kg Subcutaneous BID nicotine (NICODERM CQ STEP 1) 21 mg/day patch 1 patch 1 patch Transdermal QDAY polyethylene glycol 3350 (MIRALAX) packet 17 g 1 packet Oral BID senna/docusate (SENOKOT-S) solution 10 mL 10 mL Per NG tube BID Continuous Infusions: PRN and Respiratory Meds:albuterol 0.5% QID PRN, fentaNYL citrate PF Q1H PRN, fentaNYL citrate PF QDAY PRN, hydrOXYzine TID PRN, ipratropium bromide QID PRN, LORazepam (ATIVAN) injection TID PRN, LORazepam (ATIVAN) injection QDAY PRN , ondansetron (ZOFRAN) IV Q6H PRN, pancrelipase 20,000 Units/ sodium bicarbonate 650 mg(#) PRN (Capacitor Assembler from Rx), prochlorperazine Q6H PRN, simethicone Q6H PRN, traMADol Q6H PRN Objective: Vital Signs: Last Filed Vital Signs: 24 Hour Range BP: 113/70 (02/11 913) Temp: 36.9 C (98.4 F) (02/11 913) Pulse: 101 (02/11 913) Respirations: 18 PER MINUTE (02/11 913) SpO2: 95 % (02/11 913) O2 Delivery: Trach Shield (02/11 913) SpO2 Pulse: 100 (02/11 1600) BP: (107-122)/(51-70) Temp: [36.9 C (98.4 F)-37.6 C (99.6 F)] Pulse: [91-105] Respirations: [16 PER MINUTE-18 PER MINUTE] SpO2: [92 %-100 %] O2 Delivery: Trach Shield Intensity Pain Scale 0-10 (Pain 1): 0 (02/10/18 1600) Vitals: 02/06/18 0400 02/06/18 1436 02/07/18 0800 Weight: 79.6 kg (175 lb 7.8 oz) 79.6 kg (175 lb 7.8 oz) 74.1 kg (163 lb 5.8 oz) Intake/Output Summary: (Last 24 hours) Intake/Output Summary (Last 24 hours) at 02/11/18 09 Last data filed at 02/11/18912 Gross per 24 hour Intake 523 ml Output 1065 ml Net -542 ml Stool Occurrence: 1 Physical Exam General: Alert, cooperative, no distress Neck: Supple, symmetrical, trach in place, no adenopathy, no carotid bruit and no JVD Lungs: Decreased air entry bilaterally, no wheezing, no crackles no rales. Heart: Regular rate and rhythm, S1, S2 normal, no murmur, click rub or gallop Abdomen: Soft, non-tender. Bowel sounds normal. PEG in place. No masses. No organomegaly. Extremities: Extremities normal, atraumatic, no cyanosis or edema Pulses: 2+ and symmetric, all extremities Neurologic: A&O x3, CN II-XII intact, PERRLA, EOMI intact, No focal deficits. Lab Review 24-hour labs: Results for orders placed or performed during the hospital encounter of (from the past 24 hour(s)) CBC AND DIFF Collection Time: 02/11/18 5:11 AM Result Value Ref Range White Blood Cells 2.0 (L) 4.5 - 11.0 K/UL RBC 3.32 (L) 4.4 - 5.5 M/UL Hemoglobin 10.2 (L) 13.5 - 16.5 GM/DL Hematocrit 29.0 (L) 40 - 50 % MCV 87.5 80 - 100 FL MCH 30.8 26 - 34 PG MCHC 35.2 32.0 - 36.0 G/DL RDW 13.0 11 - 15 % Platelet Count 102 (L) 150 - 400 K/UL MPV 7.1 7 - 11 FL Neutrophils 87 (H) 41 - 77 % Lymphocytes 9 (L) 24 - 44 % Monocytes 1 (L) 4 - 12 % Eosinophils 3 0 - 5 % Basophils 0 0 - 2 % Absolute Neutrophil Count 1.70 (L) 1.8 - 7.0 K/UL Absolute Lymph Count 0.20 (L) 1.0 - 4.8 K/UL Absolute Monocyte Count 0.00 0 - 0.80 K/UL Absolute Eosinophil Count 0.10 0 - 0.45 K/UL Absolute Basophil Count 0.00 0 - 0.20 K/UL COMPREHENSIVE METABOLIC PANEL Collection Time: 02/11/18 5:11 AM Result Value Ref Range Sodium 135 (L) 137 - 147 MMOL/L Potassium 3.6 3.5 - 5.1 MMOL/L Chloride 102 98 - 110 MMOL/L Glucose 100 70 - 100 MG/DL Blood Urea Nitrogen 18 7 - 25 MG/DL Creatinine 0.68 0.4 - 1.24 MG/DL Calcium 8.8 8.5 - 10.6 MG/DL Total Protein 6.2 6.0 - 8.0 G/DL Total Bilirubin 0.9 0.3 - 1.2 MG/DL Albumin 2.9 (L) 3.5 - 5.0 G/DL Alk Phosphatase 102 25 - 110 U/L AST (SGOT) 37 7 - 40 U/L CO2 26 21 - 30 MMOL/L ALT (SGPT) 60 (H) 7 - 56 U/L Anion Gap 7 3 - 12 eGFR Non >60 >60 mL/min eGFR >60 >60 mL/min MAGNESIUM Collection Time: 02/11/18 5:11 AM Result Value Ref Range Magnesium 1.8 1.6 - 2.6 mg/dL PHOSPHORUS Collection Time: 02/11/18 5:11 AM Result Value Ref Range Phosphorus 3.0 2.0 - 4.0 MG/DL Point of Care Testing (Last 24 hours) Glucose: 100 (02/11/18 0511) Radiology and other Diagnostics Review: Pertinent radiology reviewed. Omi Banda MD Pager [phone] * Yane Dubois, JOSE G - 02/11/2018 4:51 AM CDT I have reviewed the notes, assessment, and/or procedures performed by JOSE G Hill and concur with her documentation unless otherwise noted. * Liz Medina RN - 02/11/2018 2:35 AM CDT Patient not tolerating feeds. Zofran given. Pt still refusing feeds. Dr. Owen notified. Per Dr. Owen hold feeds until AM, and offer full liquids. * Liz Medina RN - 02/10/2018 10:40 PM CDT Patient arrived to room #4503 via bed accompanied by transport. Patient transferred to the bed with assistance. Bedside safety checks completed. Initial patient assessment completed, refer to flowsheet for details. Skin Assessment Performed skin assessment with Yane ARAIZA and Tresa ARAIZA Patient does not have pressure injury upon admission to unit.(blanchable redness on bottom) Pressure Injury is Stage 2 or greater: No Wound Team Consulted: No Please see doc flowsheet for further wound information. Fall Risk Assessment Admission fall risk assessment completed. Patient's Fall Risk: High Risk per Chiang Score or Clinical Judgment High Fall Risk Bundle Implemented: YES * Shen Melendez, - 02/10/2018 8:56 PM CDT Formatting of this note may be different from the original. RESPIRATORY THERAPY ADULT PROTOCOL EVALUATION RESPIRATORY PROTOCOL PLAN Medications Albuterol/Ipratropium: Neb PRN Note: If indicated by protocol, medication orders will be placed by therapist. Procedures Tracheostomy Suction: Q4h & PRN Oxygen/Humidity: O2 to keep SpO2 > 92%;Warm: continuous Monitoring: Pulse oximetry BID & PRN PATIENT EVALUATION RESULTS Chart Review * Pulmonary Hx: Smoking cessation < 8 weeks OR still smoking OR > 20 pack/yr hx (PEFR) OR occasional use of bronchodilator (AM) * Surgical Hx: Thoracic or abdominal surgery/injury (LE) * Chest X-Ray: Infiltrates (AC) OR atelectasis (LE) OR pleural effusion OR rib fractures (LE) * PFT/Oxygenation: FEV1, PEFR > 80% predicted OR physically unable to perform OR Pa02 >80 RA OR Sp02 >95% RA Patient Assessment * Respiratory Pattern: Regular pattern and rate OR good chest excursion with deep breathing * Breath Sounds: Clear and able to auscultate bases posteriorly * Cough / Sputum: Good effective cough OR occasional or minimal sputum OR thin sputum * Mental Status: Alert, oriented, cooperative * Activity Level: Ambulatory with assistance Priority Index Total Points: 9 Points * Priority Index: 1+ PRIORITY INDEX GUIDELINES* Priority Points 1 0-9 points 2 9-18 points 3 > 18 points + Pulm Dx or Home Rx *Higher points indicate higher acuity. Therapist: Shen Melendez, RT Date: 02/10/2018 Torres AC=Airway clearance AM=Aerosolized medication BA=Jet aerosol DB&C=Deep breathe & cough FEV1=Forced expiratory volume in first second) IC=Inspiratory capacity LE=Lung expansion MDI=Metered dose inhaler Neb=Nebulizer O2=Oxygen Oxim=Oximetry PEFR=Peak expiratory flow rate [employer]=Rapid Response Team * Lavinia Baker OT - 02/10/2018 3:50 PM CDT OCCUPATIONAL THERAPY Attempted to see pt on this date for evaluation. OT has been monitoring patient throughout hospital stay. I have been in direct communication with PT, nearly daily, to discuss progress and endurance. Observed patient mobilizing on this date with PT and use of RoWalker. Given his medical needs and endurance deficits , along with potential for higher level balance deficits, pt may benefit from short stay in [facility] setting. I attempted to see him for evaluation this afternoon , though pt was sleeping soundly in room. I believe pt is aware of discussion around IPR placement but will discuss further once OT has completed evaluation. Lavinia Olivia OTR/L [id number] * Miguel Shipley MD - 02/10/2018 1:50 PM CDT Formatting of this note may be different from the original. Critical Care Progress Note Today's Date: 02/10/2018 Name: Kelvin Zaldivar Admission Date: 01/24/2018 LOS: 17 days Assessment/Plan: Active Problems: Neck mass SVC (superior vena cava obstruction) Leukocytosis Hyponatremia Tobacco abuse Carcinoma of unknown origin (HCC) Airway compromise Anxiety Acute and chronic respiratory failure with hypoxia (HCC) Acute deep vein thrombosis (DVT) of both upper extremities (HCC) 42 y.o.malewith a past medical history of tobaccoism with ~30 pack year hx. He developed voice hoarseness and was found to have a mass. Biopsy preformed on January 24 showed concerns for carcinoma. He was admitted to the ICU originally due to airway compromise from the mass. He went to the floor as he was stable. On 02/05, underwent PEG tube placement shortly thereafter was having difficulty breathing and required increase oxygen necessitating transfer to the MICU. Interval Updates 02/09/18 - Improvement in abdominal pain in last 24 hours; however, worsened nausea prompting tube feeds to be held. Will restart tube feeds at low rate, increase as tolerated. - Video swallow study - Full liquid diet - Cefepime switched to Augmentin - Med/surg status. Neuro/psych #Anxiety - Psych to continue to follow: have recommended Ativan PRN and hydroxyzine PRN. - Patient has declined psychotherapy Plan: > Continue Ativan 0.5 to 1mg TID PRN with additional 1 mg PRN prior to radiation therapy. > Continue hydroxyzine 25mg PRN #Pain, primarily abdominal - Patient reports increased pain at port site and G tube site especially with raising arms overhead - KUB on 02/08 was unremarkable. Plan: > Continue fentanyl 25-50 mcg IV q1 hour PRN for breakthrough pain and additional 75 mcg IV prior to radiation therapy Cardiovascular #Tachycardia - Resolved - Anxiety, pain, possible infection, could also be from SVC or less likely PE - Echocardiogram 02/06 without RV strain. #SVC syndrome #B/L UE edema - Improved - s/p recanalization and angioplasty of the left innominate vein and upper SVC on 02/04. - 02/06 Doppler u/s with acute DVT in right subclavian and axillary veins, subacute thrombus in R IJ and upper innominate veins, partially occlusive thrombus surrounding port cathter in the medial left subclavian vein, which is of uncertain chronicity. - Echocardiogram 02/06 without RV strain Plan: > Continue therapeutic lovenox. No evidence of bleeding. Pulmonary #Neck mass s/p biopsy #Tracheostomy #Acute hypoxic respiratory failure - Increase in oxygen demand after G tube placement: likely shunting and atelectasis +/- mucus plugging, possible PNA as chest xray with worsened opacities over RLL. Differential includes tracheal edema s/p XRT, less likely. - Completed echo to evaluate for any possible component of HF; however, echo with normal LV and RV systolic function and low BNP of ~130; unlikely. - Cuff less trach was exchanged to Shiley cuff for ventilation upon transfer to ICU. - Repeated Chest xray 02/08 and it shows less dense opacity over the right LL, but doesn't show evidence of elevated/paralyzed diaphragm which was concern based on CXR from 02/06. Plan: > Respiratory status improved and stable: trach shield with FiO2 of 0.4, maintaining O2 sats >95%. > Duonebs. > Abx below under ID for treatment of possible PNA. #Tobacco Use Disorder -30 pack year hx Plan: > Continue nicotine patch. GI # Abdominal Pain # Enteral Nutrition # Nausea -s/p PEG tube placement on 02/05. Patient with increased nausea on 02/08, prompting tube feeds to be held. -KUB on 02/08 was unremarkable. Plan: > Continue tube feeds with Isosource 1.5. Start at 10ml/hr and advance as tolerated to goal of 65ml. Decreased water boluses to 75ml q6 hours. > Zofran 4mg q6 hours PRN IV for nausea. > Compazine 10mg q6 hours PRN IV for nausea added 02/09. #Concern for Dysphagia - VS study on 02/10 - recommended FLD with supplemental TFs #Constipation -likely opioid induced. -had large bowel movement after given movantik on 02/08. Plan: >Continue miralax and senokot-s. /Renal #EMEKA, Resolved -baseline creatinine is 0.8; increased to 1.20 with rising BUN on 02/07. -Given 40mg IV lasix x 1 on 02/06 AM during rapid response. -FeNa of 0.4%, suggestive of pre-renal etiology. Plan: > Will continue to monitor > Avoid nephrotoxins. #Hyperuricemia, Resolved. -Uric acid of 8.3 on 02/06; likely due to chemotherapy/XRT, but patient does have significant tumor burden. -Trended down to WNL; will stop trending. Heme/Onc #Adenocarcinoma of Unknown Primary -Biopsyof neck mass on 01/24: poorly differentiated malignant neoplasm with necrosis, most compatible with high grade carcinoma - Immunostains performed reveal the carcinoma lacks features of small cell carcinoma, but morphology and immunoprofile are otherwise non-specific. Poorly differentiated non-small cell lung carcinoma remains a diagnostic possibility. - MRI brain 01/22 ([facility]) - unremarkable - IR placed left chest port on 02/03/18 Plan: > Radiation therapy with chemo, received Cisplatin and etoposide 02/03/2018 (q21 days per oncology team). Cycle 2 scheduled to start on 02/24. > Completed 5 of 10? planned XRT fractions thus far (last on 02/07) . Next XRT treatment planned for today > Oncology following; appreciate assistance. Plan to finish XRT and give at least two cycles of chemotherapy prior to restaging to document response status. > Still awaiting send out path from [place] (immunostain for NUT). ID #Possible pneumonia - Sirs 2/4, leukocytosis and tachycardia - Procal 0.06 WNL 01/24; increased to 0.25 on 02/06. - CXR shows worsening opacities over RLL. - Strep pnuemo ag, legionella ag negative - Urine culture from 02/06 negative. - Sputum cultures 02/06 normal oropharyngeal whit. - s/p Zosyn (02/06-02/09) Plan: > Augmentin (02/10-current). Last day planned for 02/12 > Blood cultures NGTD; will continue to follow. FEN: no fluids, replace electrolytes PRN, FLD with Enteral feeds through PEG tube Prophylaxis Review: Lines:Yes; Port Indication: Frequent blood draws and Med not deliverable peripherally. Urinary Catheter:No. Antibiotic Usage:Yes; Infection present or suspected: Lung; Pneumonia VTE:Pharmacological prophylaxis; on therapeutic Enoxaparinand Mechanical prophylaxis; Sequential compression device Disposition/Family: Transitioned to Med/Surg status on 02/09. Per fitness center attendant , patient does not have options for home health and thus will need to be able to complete care for tracheostomy and PEG tube on his own/with assistance of significant other on discharge. Code Status:Full Code Patient was seen and discussed with Dr. Shipley. Antonio Stover DO MS Internal Medicine, PGY-1 Pager [phone] ATTESTATION I personally performed the torres portions of the E/M visit, discussed case with resident and concur with resident documentation of history, physical exam, assessment, and treatment plan unless otherwise noted. Critical illness improving. Appropriate for transfer to the floor. Ongoing radiation therapy and will need assistance for post-hospital care planning. Staff name: Miguel Shipley MD Date: 02/10/2018 __ Subjective: Kelvin Zaldivar is a 42 y.o. male. Had nausea with TFs overnight, so they were stopped. Nausea has improved this am. He denies F/C, CP, SOB. Abdominal pain is improved. Objective: Medications: Scheduled Meds: albuterol 0.5% (PROVENTIL; VENTOLIN) nebulizer solution 2.5 mg 2.5 mg Inhalation QID & PRN amoxicillin/K clavulanate (AUGMENTIN) tablet 875 mg 875 mg Per G Tube BID w/ meals enoxaparin (LOVENOX) syringe 80 mg 1 mg/kg Subcutaneous BID ipratropium bromide (ATROVENT) 0.02 % nebulizer solution 0.5 mg 0.5 mg Inhalation QID & PRN nicotine (NICODERM CQ STEP 1) 21 mg/day patch 1 patch 1 patch Transdermal QDAY polyethylene glycol 3350 (MIRALAX) packet 17 g 1 packet Oral BID senna/docusate (SENOKOT-S) solution 10 mL 10 mL Per NG tube BID Continuous Infusions: PRN and Respiratory Meds:fentaNYL citrate PF Q1H PRN, fentaNYL citrate PF QDAY PRN, hydrOXYzine TID PRN, LORazepam (ATIVAN) injection TID PRN, LORazepam ( ATIVAN) injection QDAY PRN, ondansetron (ZOFRAN) IV Q6H PRN, pancrelipase 20, 000 Units/ sodium bicarbonate 650 mg(#) PRN (Capacitor Assembler from Rx), prochlorperazine Q6H PRN, simethicone Q6H PRN, traMADol Q6H PRN Vital Signs: Last Filed Vital Signs: 24 Hour Range BP: 113/71 (02/10 200) Temp: 36.9 C (98.4 F) (02/10 200) Pulse: 97 (02/10 200) Respirations: 16 PER MINUTE (02/10 200) SpO2: 100 % (02/10 1301) O2 Delivery: Trach Shield (02/10 200) BP: (108-120)/(64-71) Temp: [36.4 C (97.5 F)-37.1 C (98.8 F)] Pulse: [96-101] Respirations: [16 PER MINUTE-18 PER MINUTE] SpO2: [97 %-100 %] O2 Delivery: Trach Shield Intensity Pain Scale 0-10 (Pain 1): (not recorded) Vitals: 02/06/18 0400 02/06/18 1436 02/07/18 0800 Weight: 79.6 kg (175 lb 7.8 oz) 79.6 kg (175 lb 7.8 oz) 74.1 kg (163 lb 5.8 oz) Intake/Output Summary: (Last 24 hours) Intake/Output Summary (Last 24 hours) at 02/10/18 1350 Last data filed at 02/10/18 1100 Gross per 24 hour Intake 734 ml Output 900 ml Net -166 ml Physical Exam: General: Alert, calm in no distress HEENT: no icterus Neck: supple, some upper neck congestion, trach shield in place Chest: clear to auscultation, no accessory muscle use, left chest port without evidence of infection: no erythema, induration, purulence. Cardiac: normal S1, S2. No appreciable murmur. Abdomen: normoactive bowel sounds, tender around PEG tube site but without evidence of infection: no erythema, induration, purulence. Bandage is c/d/i. Extremities: no cyanosis or clubbing, no UE swelling Vascular: radial pulses intact bilaterally Psychiatric: normal mood and affect Neurologic: alert, awake and oriented Lab Review: 24-hour labs: Results for orders placed or performed during the hospital encounter of (from the past 24 hour(s)) CBC AND DIFF Collection Time: 02/10/18 1:58 AM Result Value Ref Range White Blood Cells 3.9 (L) 4.5 - 11.0 K/UL RBC 3.56 (L) 4.4 - 5.5 M/UL Hemoglobin 10.8 (L) 13.5 - 16.5 GM/DL Hematocrit 31.5 (L) 40 - 50 % MCV 88.4 80 - 100 FL MCH 30.2 26 - 34 PG MCHC 34.2 32.0 - 36.0 G/DL RDW 12.9 11 - 15 % Platelet Count 143 (L) 150 - 400 K/UL MPV 7.7 7 - 11 FL Neutrophils 92 (H) 41 - 77 % Lymphocytes 5 (L) 24 - 44 % Monocytes 1 (L) 4 - 12 % Eosinophils 2 0 - 5 % Basophils 0 0 - 2 % Absolute Neutrophil Count 3.60 1.8 - 7.0 K/UL Absolute Lymph Count 0.20 (L) 1.0 - 4.8 K/UL Absolute Monocyte Count 0.00 0 - 0.80 K/UL Absolute Eosinophil Count 0.10 0 - 0.45 K/UL Absolute Basophil Count 0.00 0 - 0.20 K/UL COMPREHENSIVE METABOLIC PANEL Collection Time: 02/10/18 1:58 AM Result Value Ref Range Sodium 135 (L) 137 - 147 MMOL/L Potassium 3.6 3.5 - 5.1 MMOL/L Chloride 100 98 - 110 MMOL/L Glucose 106 (H) 70 - 100 MG/DL Blood Urea Nitrogen 23 7 - 25 MG/DL Creatinine 0.85 0.4 - 1.24 MG/DL Calcium 8.9 8.5 - 10.6 MG/DL Total Protein 6.1 6.0 - 8.0 G/DL Total Bilirubin 1.1 0.3 - 1.2 MG/DL Albumin 2.9 (L) 3.5 - 5.0 G/DL Alk Phosphatase 101 25 - 110 U/L AST (SGOT) 40 7 - 40 U/L CO2 28 21 - 30 MMOL/L ALT (SGPT) 62 (H) 7 - 56 U/L Anion Gap 7 3 - 12 eGFR Non >60 >60 mL/min eGFR >60 >60 mL/min MAGNESIUM Collection Time: 02/10/18 1:58 AM Result Value Ref Range Magnesium 1.9 1.6 - 2.6 mg/dL PHOSPHORUS Collection Time: 02/10/18 1:58 AM Result Value Ref Range Phosphorus 3.3 2.0 - 4.0 MG/DL Point of Care Testing: (Last 24 hours): Glucose: (!) 106 (02/10/18 0158) Radiology and Other Diagnostic Procedures Review: No new radiology to review. * Nayana Meeks MS,[facility]-TECHNOLOGY ASSISTANT - 02/10/2018 1:22 PM CDT SPEECH-LANGUAGE PATHOLOGY VIDEOSWALLOW ASSESSMENT EVALUATION SUMMARY Videoswallow Summary*: A videoswallow summary was completed at this date. Pt known to this TECHNOLOGY ASSISTANT from onset of this hospital admission. Pt with Shiley 6.0 cuffed. Currently not a candidate for speaking valve as unable to tolerate, likely associated with presence of known mass. As such, study completed with open trach on trach shield. Results of videoswallow study indicate mild to mild- moderate oropharyngeal dysphagia characterized by inconsistent minimal penetration of thin liquid barium during the swallow, with entirely of contrast observed to clear laryngeal vestibule upon completion of swallow. One episode of silent aspiration with thin liquid barium observed on very first swallow of study; did not appear to be indicative of overall swallow function. Moderate pharyngeal residue with increased viscosities (pudding barium, cracker coated in pudding barium), largely cleared via thin liquid wash. Anticipate primary sources of dysphagia to be decreased sensation and weakness/debility. Anticipate pt will require nutritional supplements and/or PEG to supplement PO intake as anticipate pt will have difficulty maintaining nutrition via PO intake alone. Pt reportedly with weight loss and inadequate caloric intake prior to admission. Please see below. RECOMMENDATIONS: Full liquid diet. Continue PEG as primary source of nutrition/hydration PO meds as tolerated Swallow Precautions: 100% supervision, small bites/sips, alternate bites/sips Frequent oral care to reduce risk of aspirating bacteria in oral secretions Ongoing dysphagia management from TECHNOLOGY ASSISTANT. Ongoing TECHNOLOGY ASSISTANT at next level of care. MBSImp Scale: Lip closure for intraoral bolus containment resulted in no labial escape. Tongue control during bolus hold maintained a cohesive bolus held between tongue to palate seal. Bolus preparation and mastication resulted in slow, prolonged chewing/mashing but with complete re-collection. Bolus transport/ lingual motion was with repetitive/disorganized motion of the tongue. Oral residue was a trace, lining oral structures. Initiation of the pharyngeal swallow occured when the bolus head was in the pyriform sinuses. Soft palate elevation resulted in no bolus between the soft palate and the pharyngeal wall. Laryngeal elevation was decreased, with partial superior movement of the thyoid cartilage/partial approximation of the arytenoids to the epigoittic petiole. Anterior hyoid excursion demonstrated partial anterior movement. Epiglottic movement resulted in partial inversion. Laryngeal vestibular closure was incomplete, with narrow column of air/contrast noted within the laryngeal vestibule at the height of the swallow. Pharyngeal stripping wave was present, but diminished. Pharyngeal contraction could not be assessed due to logistical reasons not related to physiologic impairment. Pharyngoesophageal segment opening could not be assessed due to logistical reasons not related to physiologic impairment. Tongue base retraction allowed a trace column of contrast or air between the retracted tongue base and the posterior pharyngeal wall. Pharyngeal residue was the majority of contrast within or on pharyngeal structures. Esophageal clearance in the upright position could not be assessed due to logistical reasons not related to physiologic impairment. Swallow Recommendations* PO: Full Liquid Swallow Strategies: Supervision During Meals, Small Bites/Sips, Slow Rate of Intake Plan*: Continue Treatment 2-3x/ Week, Patient Would Benefit from Further Speech Therapy Post Acute Hospitalization. Prognosis*: Good NOMS Dysphagia Rating*: [id number] Dysphagia -Swallow safe but usually requires mod cues to use compensatory strategies &/or has mod diet restrictions &/or still requires tube feeding &/or oral supplements. Objective* Relevant Med Background: Mr. Zaldivar is a 42 year old male with acute on chronic hypoxemic respiratory failure in the setting of high grade, poorly- differentiated adenocarcinoma of unknown primary with dominant neck/mediastinal mass compressing trachea/great vessels with SVC syndrome and requiring trach/ peg. He was transferred to the ICU on 02/06/18 following [employer] for progressive hypoxemia and rising O2 requirements with ABG 7.5/37/55 on FiO2 100% NRB following new PEG placement and complaints of abdominal pain limiting respiratory mechanics. CXR with new loss/obscuration of bilateral diaphragms suggesting BLL atelectasis/infiltrates, R effusion. Chest Single View 02/08/18 Impressions: 1. Small left pleural effusion with adjacent consolidation likely atelectasis. 2. Prominence of the mediastinum and katia compatible with known lymphadenopathy Hearing: WFL Psychosocial Status: Willing and Cooperative to Participate Subjective* Pain: Patient has no complaint of pain Trach Presence: Yes Feeding Tube Present During Eval: (PEG) Nutrition* Nutrition Prior To Hospitalization: Oral, Regular, Thin Liquids (weight loss, inadequate caloric intake) Current Form Of Nutrition: NPO Views / Seating* Views / Seating: Sitting at 90 Degrees Upright Barium Consist/Presentation* Presentations: Patient Fed Self, Therapist Fed Thin Liquid: Straw, Consecutive Swallows, Cup Other Consistencies: Pudding (Mixed solid-pudding consistency) Education* Persons Educated: Patient Barriers To Learning: Impaired Communication, Anxiety Interventions: Staff Educated Teaching Methods: Verbal Topics: Dysphagia Patient Response: Verbalized Understanding Goal Formulation: With Patient Videoswallow Goals* Goal : Pt will participate in ongoing assessment of swallow provided minimal cues. Goal : Pt will tolerate PO trials for the purpose of diet advancement with minimal cues. Goal : Pt will tolerate a full liquid diet with less than 10% s/s of penetration /aspiration and free from respiratory status changes. Therapist: Nayana Meeks MS,CCC-TECHNOLOGY ASSISTANT [id number] Date: 02/10/2018 * Wilton Isidro RN - 02/10/2018 1:13 PM CDT 0730 Assumed pt care at this time. Bedside safety check performed, plan of care reviewed. Physical assessment complete, please see ICU flowsheet for details. VSS. Will continue to monitor. 0810 Pt off floor for radiation treatment. 0900 Pt returned to unit. 11:40 Pt off floor for video swallow study. 1600 Assessment complete per ICU flowsheet. VSS. No other changes from initial assessment. Will continue to monitor. * Karen Salcedo RD - 02/10/2018 11:45 AM CDT CLINICAL NUTRITION Clinical Nutrition Follow-Up Summary Nutrition Assessment of Patient: Malnutrition Assessment: Malnutrition present Malnutrition Context: ICD-10 code E44: Acute illness/Moderate non-severe malnutrition Estimated Calorie Needs: 2220-2595kcal (30-35kcal/kg present wt) Estimated Protein Needs: 96-111g (1.3-1.5g/kg present wt) Oral Diet Order: NPO Current EN Order: Isosource 1.5 goal rate 65ml/hr continuous. 24-hr volume goal 1560ml. Would provide 2340kcal, 106g protein, 1192ml free H2O. H2O boluses 75ml q6hr. Intake (calories) 3-day Daily Average : 599 kilocalories (27% estimated needs) Intake (protein) 3-day Daily Average : 27 grams (28% estimated needs) 42 yo M with no PMH admit on 01/24 as transfer from OSH after CT showed large neck/chest mass and concern for high risk airway. He is s/p trach on 01/24. Pt rapid responded to MICU early 02/06 for hypoxia. Now weaned/tolerating TS. EN had initially been given via corpak, goal rate reached by 02/04 AM; switched via g-tube after placement 02/05. However patient has had constipation & nocturnal nausea, limiting tolerance of EN rate advancements- has been off/on over weekend & not infused >~30ml/hr. Is held this morning for XRT & is getting VSS midday today. Per RN, +BMs overnight/this AM & patient without nausea so far today. Is planning to resume feeds after VSS as indicated. Labs/meds reviewed. Net weight loss over stay. No pressure injuries noted. Recommendation: Resume EN feeds at previously tolerated goal rate as soon as feasible today. Goal rate as ordered remains appropriate. Continue bowel regimen. Consider scheduling/adjusting antiemetics. If cleared for PO, goal diet: Regular/textures per TECHNOLOGY ASSISTANT, however would continue with goal for 100% nutrition via g-tube for now. Intervention / Plan: Updated estimated kcal/pro needs with updated weight Will monitor EN vs. PO intakes for tolerance, adequacy, appropriateness & will adjust nutrition recs prn Nutrition Diagnosis: Nutrition Diagnosis: Inadequate oral intake Etiology: altered GI function/dysphagia Signs & Symptoms: NPO with need for non oral nutrition support Goals: EN tolerated and meeting >75% of nutritional needs Time Frame: Within 72 Hours Status: Not met;Ongoing Karen Salcedo, RD, LD, [facility] *[id number] * Susu Bee, PT - 02/10/2018 9:58 AM CDT PHYSICAL THERAPY PROGRESS NOTE SUBJECTIVE: Subjective Significant hospital events: Transferred from OSH 01/24/[address] revealing large mass compressing airway, aortic arch and pulmonary artery, pathology revealed adenocarcinoma with unknown primary. S/P tracheostomy, remains high risk airway. G tube placed 02/05/18, post procedure patient with increased O2 requirements and transferred to ICU. 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 BED MOBILITY/TRANSFERS: Bed Mobility/Transfers Bed Mobility: Supine to Sit: Standby Assist;Head of Bed Elevated Bed Mobility: Sit to Supine: Standby Assist;HOB Elevated Comments: Patient referes HOB elevated prior to return to "supine" due to reports of neck pain when laying flat. Transfer Type: Sit to/from Stand (performed 3 times during session) Transfer: Assistance Level: To/From;Minimal Assist (contact guard) Transfer: Assistive Device: (RoWalker) Transfers: Type Of Assistance: Verbal Cues End Of Activity Status: In Bed;Nursing Notified;Instructed Patient to Request Assist with Mobility;Instructed Patient to Use Call Light (chair alarm activated ) Comments: Encouraged patient to sit up in chair today, software validation technician provided a different chair option for later. GAIT: Gait Gait Distance: 45 feet (seated rest, 30', seated rest, 75 feet) Gait: Assistance Level: Minimal Assist (contact guard) Gait: Assistive Device: (RoWalker) Gait: Descriptors: Pace: Slow Activity Limited By: Complaint of Fatigue Comments: VS stable pre/post activity. EDUCATION: Education Persons Educated: Patient Patient Barriers To Learning: Impaired Communication (mouths words, gestures) Teaching Methods: Verbal Instruction;Demonstration Patient Response: Return Demonstration (communicates understanding) Topics: Plan/Goals of PT Interventions;Use of Assistive Device/Orthosis; Mobility Progression;Safety Awareness;Up with Assist Only;Importance of Increasing Activity ASSESSMENT/PROGRESS: Assessment/Progress Impaired Mobility Due To: Decreased Strength;Decreased Activity Tolerance; Deconditioning;Medical Status Limitation Assessment/Progress: Should Improve w/ Continued PT AM-PAC 6 Clicks Basic Mobility Inpatient Turning from your back to your side while in a flat bed without using bed rails : A Little Moving from lying on your back to sitting on the side of a flatbed without using bedrails : A Little Moving to and from a bed to a chair (including a wheelchair): A Little Standing up from a chair using your arms (e.g. wheelchair, or bedside chair): A Little To walk in hospital room: A Little Climbing 3-5 steps with a railing: A Lot Raw Score: 17 Standardized (T-scale) Score: 39.67 Basic Mobility CMS 0-100%: 43.83 CMS G Code Modifier for Basic Mobility: CK GOALS: Goals Goal Formulation: With Patient Time For Goal Achievement: 7 days Pt Will Go Supine To/From Sit: w/ Stand By Assist Pt Will Transfer Sit to Stand: w/ Stand By Assist Pt Will Ambulate: Greater than 200 Feet, w/ Stand By Assist, w/ Walker Pt Will Go Up / Down Stairs: 1-2 Stairs, w/ Stand By Assist PLAN: Plan Treatment Interventions: Mobility Training;Strengthening;Balance Activities; Endurance Training Plan Frequency: 5 Days per Week Comments: Plan to increase gait distance with RoWalker next visit and if continues to improve then will assess gait without device the following visit. RECOMMENDATIONS: PT Discharge Recommendations PT Discharge Recommendations: Inpatient Setting at this time, anticipate if medical status and mobility continues to improve then home with assistance may be appropriate in the future Will continue to consider recommendation for rehab consult, not indicated this date, formal occupational therapy assessment pending. Recommend ongoing assistance for: In and out of house;Transfers;Bed mobility; Ambulation;Stairs Therapist: Susu Bee, PT, DPT Date: 02/10/2018 * Cooper Sal, RN - 02/09/2018 10:41 PM CDT Assumed patient care following bedside safety check at 1930. Physical assessment complete per ICU flowsheet. Patient alert and oriented x4 denying any pain. VSS on 40% Trach Shield. Following water bolus and increase in tubefeed at 2000 patient became nauseous. See eMAR. Tubefeed rate decreased back to 20ml/hr. Dr. Barrett notified and will continue to monitor nausea. Discussed with patient importance of creating small, achievable goals like getting up to sit in the chair during the day and patient agreeable. Will continue with plan of care. 0140: Patient continues to be nauseous. Dr. Barrett notified with order to stop tubefeeds and water boluses for now. Will pass on to day team. * Chon Luo MD - 02/09/2018 11:22 AM CDT Formatting of this note may be different from the original. Critical Care Progress Note Today's Date: 02/09/2018 Name: Kelvin Zaldivar Admission Date: 01/24/2018 LOS: 16 days Assessment/Plan: Active Problems: Neck mass SVC (superior vena cava obstruction) Leukocytosis Hyponatremia Tobacco abuse Carcinoma of unknown origin (HCC) Airway compromise Anxiety Acute and chronic respiratory failure with hypoxia (HCC) 42 y.o.malewith a past medical history of tobaccoism with ~30 pack year hx. He developed voice hoarseness and was found to have a mass. Biopsy preformed on January 24 showed concerns for carcinoma. He was admitted to the ICU originally due to airway compromise from the mass. He went to the floor as he was stable. On 02/05, underwent PEG tube placement shortly thereafter was having difficulty breathing and required increase oxygen necessitating transfer to the MICU. Interval Updates 02/09/18 - Improvement in abdominal pain in last 24 hours; however, worsened nausea prompting tube feeds to be held. Will restart tube feeds at low rate, increase as tolerated. Start compazine for nausea. - Discontinued oxycodone and started tramadol PRN for pain + breakthrough fentanyl IV. - Video swallow study to be done on 02/10, per speech therapy recommendations - Med/surg status. Neuro/psych #Anxiety - Psych to continue to follow: have recommended Ativan PRN and hydroxyzine PRN. - Patient has declined psychotherapy Plan: > Continue Ativan 0.5 to 1mg TID PRN with additional 1 mg PRN prior to radiation therapy. > Continue hydroxyzine 25mg PRN (hasn't used hydroxyzine). #Pain, primarily abdominal - Patient reports increased pain at port site and G tube site especially with raising arms overhead - KUB on 02/08 was unremarkable. Plan: > Pain improved in the last 24 hours. Will discontinue oxycodone and have tramadol 25-50 mg q6 hours PRN. > Continue fentanyl 25-50 mcg IV q1 hour PRN for breakthrough pain and additional 75 mcg IV prior to radiation therapy Cardiovascular #Tachycardia, Resolved - Anxiety, pain, possible infection, could also be from SVC or less likely PE - Echocardiogram 02/06 without RV strain. #SVC syndrome #B UE edema - s/p recanalization and angioplasty of the left innominate vein and upper SVC on 02/04. - 02/06 Doppler u/s with acute DVT in right subclavian and axillary veins, subacute thrombus in R IJ and upper innominate veins, partially occlusive thrombus surrounding port cathter in the medial left subclavian vein, which is of uncertain chronicity. - Echocardiogram 02/06 without RV strain Plan: > Continue therapeutic lovenox. No evidence of bleeding. Pulmonary #Neck mass s/p biopsy #Tracheostomy #Acute hypoxic respiratory failure - Increase in oxygen demand after G tube placement: likely shunting and atelectasis +/- mucus plugging, possible PNA as chest xray with worsened opacities over RLL. Differential includes tracheal edema s/p XRT, less likely. - Completed echo to evaluate for any possible component of HF; however, echo with normal LV and RV systolic function and low BNP of ~130; unlikely. - Cuff less trach was exchanged to Shiley cuff for ventilation upon transfer to ICU. - Repeated Chest xray 02/08 and it shows less dense opacity over the right LL, but doesn't show evidence of elevated/paralyzed diaphragm which was concern based on CXR from 02/06. Plan: > Respiratory status continues to improve; now on trach shield with FiO2 of 0.4, maintaining O2 sats >95%. > Duonebs. > Abx below under ID for treatment of possible PNA. #Tobacco Use Disorder -30 pack year hx Plan: > Continue nicotine patch. GI # Abdominal Pain # Enteral Nutrition # Nausea -s/p PEG tube placement on 02/05. Patient with increased nausea on 02/08, prompting tube feeds to be held. -KUB on 02/08 was unremarkable. Plan: > Continue tube feeds with Isosource 1.5. Start at 10ml/hr and advance as tolerated to goal of 65ml. Decreased water boluses to 75ml q6 hours. > Zofran 4mg q6 hours PRN IV for nausea. > Compazine 10mg q6 hours PRN IV for nausea added 02/09. #Concern for Dysphagia -Speech has recommended video swallow evaluation. Plan: >Video swallow planned for 02/10. #Constipation -likely opioid induced. -had large bowel movement after given movantik on 02/08. Plan: >Continue miralax and senokot-s. /Renal #EMEKA, Resolved -baseline creatinine is 0.8; increased to 1.20 with rising BUN on 02/07. -Given 40mg IV lasix x 1 on 02/06 AM during rapid response. -FeNa of 0.4%, suggestive of pre-renal etiology. Plan: > Creatinine improved. > Will continue to monitor; may consider IV fluids if creatinine trends up. > Avoid nephrotoxins. #Hyperuricemia, Resolved. -Uric acid of 8.3 on 02/06; likely due to chemotherapy/XRT, but patient does have significant tumor burden. -Trended down to WNL; will stop trending. Heme/Onc #Adenocarcinoma of Unknown Primary -Biopsyof neck mass on 01/24: poorly differentiated malignant neoplasm with necrosis, most compatible with high grade carcinoma - Immunostains performed reveal the carcinoma lacks features of small cell carcinoma, but morphology and immunoprofile are otherwise non-specific. Poorly differentiated non-small cell lung carcinoma remains a diagnostic possibility. - MRI brain 01/22 (OSH) - unremarkable - IR placed left chest port on 02/03/18 Plan: > Radiation therapy with chemo, received Cisplatin and etoposide 02/03/2018 (q21 days per oncology team). Cycle 2 scheduled to start on 02/24. > Completed 5 of 20? planned XRT fractions thus far (last on 02/07) . Next XRT treatment planned for 02/10, early AM. > Oncology following; appreciate assistance. Plan to finish XRT and give at least two cycles of chemotherapy prior to restaging to document response status. > Still awaiting send out path from [place] (immunostain for NUT). ID #Possible pneumonia - Sirs 2/4, leukocytosis and tachycardia - Procal 0.06 WNL 01/24; increased to 0.25 on 02/06. - CXR shows worsening opacities over RLL. - Strep pnuemo ag, legionella ag negative - Urine culture from 02/06 negative. - Sputum cultures 02/06 normal oropharyngeal whit. Plan: > Continue Zosyn with improvement in respiratory status clinically and radiographically.Will plan to continue Zosyn for one more day and then switch to PO Augmentin through 02/12. Total abx plan is for 7 day course (start date: 02/06). > Blood cultures NGTD; will continue to follow. FEN: no fluids, replace electrolytes PRN, NPO--Enteral feeds through PEG tube Prophylaxis Review: Lines:Yes; Port Indication: Frequent blood draws and Med not deliverable peripherally. Urinary Catheter:No. Antibiotic Usage:Yes; Infection present or suspected: Lung; Pneumonia VTE:Pharmacological prophylaxis; on therapeutic Enoxaparinand Mechanical prophylaxis; Sequential compression device Disposition/Family: Transition to Med/Surg status on 02/09. Per fitness center attendant, patient does not have options for home health and thus will need to be able to complete care for tracheostomy and PEG tube on his own/with assistance of significant other on discharge. Code Status:Full Code Homa Owen MD Internal Medicine, PGY-1 Patient was seen and discussed with Dr. Luo. ATTESTATION I personally performed the torres portions of the E/M visit, discussed case with resident and concur with resident documentation of history, physical exam, assessment, and treatment plan unless otherwise noted. Abdominal pain improving so adjust pain medications as above and transfer to floor. Staff name: Chon Luo MD Date: 02/09/2018 __ Subjective: Kelvin Zaldivar is a 42 y.o. male. No acute events overnight. He reports his abdominal pain is improved; had significantly less opioid requirements in last 24 hours. He continues to have pain primarily around the PEG tube site, worsened by coughing/straining. He had increased nausea overnight prompting tube feeds to be held. However, residuals were not markedly elevated. Had BM on 02/08 after Movantik. He denies abdominal fullness and distention. ROS: Positive for nausea, abdominal pain . He denies fever, chills, vomiting, diarrhea, chest pain, headache, upper arm paraesthesias. Objective: Medications: Scheduled Meds: albuterol 0.5% (PROVENTIL; VENTOLIN) nebulizer solution 2.5 mg 2.5 mg Inhalation QID & PRN enoxaparin (LOVENOX) syringe 80 mg 1 mg/kg Subcutaneous BID ipratropium bromide (ATROVENT) 0.02 % nebulizer solution 0.5 mg 0.5 mg Inhalation QID & PRN nicotine (NICODERM CQ STEP 1) 21 mg/day patch 1 patch 1 patch Transdermal QDAY piperacillin/tazobactam (ZOSYN) 3.375 g/50 mL iso-osmotic IVPB 3.375 g Intravenous Q6H* polyethylene glycol 3350 (MIRALAX) packet 17 g 1 packet Oral BID senna/docusate (SENOKOT-S) solution 10 mL 10 mL Per NG tube BID Continuous Infusions: PRN and Respiratory Meds:fentaNYL citrate PF Q1H PRN, fentaNYL citrate PF QDAY PRN, hydrOXYzine TID PRN, LORazepam (ATIVAN) injection TID PRN, LORazepam ( ATIVAN) injection QDAY PRN, ondansetron (ZOFRAN) IV Q6H PRN, pancrelipase 20, 000 Units/ sodium bicarbonate 650 mg(#) PRN (Capacitor Assembler from Rx), prochlorperazine Q6H PRN, simethicone Q6H PRN, traMADol Q6H PRN Vital Signs: Last Filed Vital Signs: 24 Hour Range BP: 116/65 (02/09 1000) Temp: 36.7 C (98.1 F) (02/09 0800) Pulse: 89 (02/09 1000) Respirations: 13 PER MINUTE (02/09 1000) SpO2: 95 % (02/09 1000) O2 Delivery: Trach Shield (02/09 1000) BP: (98-137)/(64-102) Temp: [36.7 C (98.1 F)-37.4 C (99.4 F)] Pulse: [84-102] Respirations: [11 PER MINUTE-26 PER MINUTE] SpO2: [90 %-100 %] O2 Delivery: Trach Shield Intensity Pain Scale 0-10 (Pain 1): (not recorded) Vitals: 02/06/18 0400 02/06/18 1436 02/07/18 0800 Weight: 79.6 kg (175 lb 7.8 oz) 79.6 kg (175 lb 7.8 oz) 74.1 kg (163 lb 5.8 oz) Intake/Output Summary: (Last 24 hours) Intake/Output Summary (Last 24 hours) at 02/09/18 1123 Last data filed at 02/09/18 1100 Gross per 24 hour Intake 1185 ml Output 875 ml Net 310 ml Physical Exam: General: Alert, calm in no distress HEENT: no icterus, PERRL, EOMI. Has tongue piercing. Neck: supple, some upper neck congestion, trach shield in place Chest: clear to auscultation, no accessory muscle use, left chest port without evidence of infection: no erythema, induration, purulence. Cardiac: normal S1, S2. No appreciable murmur. Abdomen: normoactive bowel sounds, tender around PEG tube site but without evidence of infection: no erythema, induration, purulence. Bandage is c/d/i. Extremities: no cyanosis or clubbing, non pitting edema in upper extremities. Erythema of bilateral UEs Vascular: radial pulses intact bilaterally Psychiatric: normal mood and affect Neurologic: alert, awake and oriented Lab Review: 24-hour labs: Results for orders placed or performed during the hospital encounter of (from the past 24 hour(s)) CBC AND DIFF Collection Time: 02/09/18 2:21 AM Result Value Ref Range White Blood Cells 5.3 4.5 - 11.0 K/UL RBC 3.38 (L) 4.4 - 5.5 M/UL Hemoglobin 10.3 (L) 13.5 - 16.5 GM/DL Hematocrit 29.9 (L) 40 - 50 % MCV 88.4 80 - 100 FL MCH 30.6 26 - 34 PG MCHC 34.6 32.0 - 36.0 G/DL RDW 13.2 11 - 15 % Platelet Count 181 150 - 400 K/UL MPV 6.9 (L) 7 - 11 FL Neutrophils 93 (H) 41 - 77 % Lymphocytes 5 (L) 24 - 44 % Monocytes 0 (L) 4 - 12 % Eosinophils 2 0 - 5 % Basophils 0 0 - 2 % Absolute Neutrophil Count 4.90 1.8 - 7.0 K/UL Absolute Lymph Count 0.30 (L) 1.0 - 4.8 K/UL Absolute Monocyte Count 0.00 0 - 0.80 K/UL Absolute Eosinophil Count 0.10 0 - 0.45 K/UL Absolute Basophil Count 0.00 0 - 0.20 K/UL COMPREHENSIVE METABOLIC PANEL Collection Time: 02/09/18 2:21 AM Result Value Ref Range Sodium 138 137 - 147 MMOL/L Potassium 3.6 3.5 - 5.1 MMOL/L Chloride 102 98 - 110 MMOL/L Glucose 89 70 - 100 MG/DL Blood Urea Nitrogen 26 (H) 7 - 25 MG/DL Creatinine 0.84 0.4 - 1.24 MG/DL Calcium 8.8 8.5 - 10.6 MG/DL Total Protein 5.8 (L) 6.0 - 8.0 G/DL Total Bilirubin 1.2 0.3 - 1.2 MG/DL Albumin 2.7 (L) 3.5 - 5.0 G/DL Alk Phosphatase 85 25 - 110 U/L AST (SGOT) 19 7 - 40 U/L CO2 29 21 - 30 MMOL/L ALT (SGPT) 38 7 - 56 U/L Anion Gap 7 3 - 12 eGFR Non >60 >60 mL/min eGFR >60 >60 mL/min MAGNESIUM Collection Time: 02/09/18 2:21 AM Result Value Ref Range Magnesium 1.9 1.6 - 2.6 mg/dL PHOSPHORUS Collection Time: 02/09/18 2:21 AM Result Value Ref Range Phosphorus 3.1 2.0 - 4.0 MG/DL Point of Care Testing: (Last 24 hours): Glucose: 89 (02/09/18 0221) Radiology and Other Diagnostic Procedures Review: No new radiology to review. Homa Owen MD Pager [phone] * Andrew Sanchez, JSOE G - 02/09/2018 7:50 AM CDT 0730 - Assumed pt. care at this time, bedside safety check performed, and plan of care reviewed. 0800 - Assessment complete, see ICU flowsheet for details. VS per pt. trends. Will continue to monitor. 1600 - VS stable per pt. trends. Will continue to monitor. * Cooper Sal RN - 02/08/2018 8:36 PM CDT 1930 Assumed patient care following bedside safety check. 2000 Physical assessment complete per ICU flowsheet. Patient alert and oriented x4. Patient nauseous/vomiting, see eMAR. Oxycodone given for pain management prior to IPV treatment with RT. VSS on 40% TS. Patient updated on plan of care and questions answered. Will continue to monitor. 2100 Dr. Mejia called to discuss patient's plan overnight and will keep patient on trach shield as tolerated. Will also hold off on tubefeeds sense patient remains nauesous/vomiting. Will give water boluses as patient tolerates. 02/09/18 0000 Physical assessment complete per ICU flowsheet. VSS on 50% TS. No other changes from previous assessment. Will continue to monitor. 0400 Physical assessment complete per ICU flowsheet. Patient nauseous, see eMAR. Peg tube collapsing and unable to obtain accurate residual volumes. 80ml measured. Dr. Mejia notified with morning lab results and no new orders at this time. No other changes from previous assessment. Will continue to monitor. * Yelitza Garber - 02/08/2018 4:06 PM CDT SPEECH-LANGUAGE PATHOLOGY NO TREATMENT NOTE Orders for bedside swallow evaluation received and appreciated. At this time recommend completing videoswallow evaluation rather than bedside swallow evaluation. Notified primary team. Will plan to complete videoswallow evaluation 02/10. Therapist: Yelitza Garber M.A. CF-TECHNOLOGY ASSISTANT Voalte: [phone] Pager: [phone] Weekend Acute Pager: [phone] Date: 02/08/2018 * Hilda Dong, JOSE G - 02/08/2018 1:49 PM CDT 1200: Assumed pt care at this time. Bedside safety check performed, plan of care reviewed. 1300: Physical assessment complete, please see ICU flowsheet for details. VSS per pt trends on TS. Will continue to monitor. 1400: Trach care completed at this time. Stoma site assessed, some redness noted. New dressing applied to keep site clean and offload pressure. Will continue to monitor. ~1510: RN called to room, pt nauseous and vomiting. PRN zofran given, tube feeds held. 1600: Assessment complete per ICU flowsheet. VSS per pt trends. Pt still reporting nausea, tube feeds remain held. No other changes from initial assessment. Will continue to monitor. 1730: Pt continues to report nausea. Team notified, will give PRN ativan per Dr. Machuca. Team also notified of held tube feeds since 1500. Will continue to hold tube feeds until nausea subsides and then restart at slower rate. Discussed possible nutrition consult, as pt is unable to tolerate tube feeds at less than goal rate and is not receiving adequate nutrition. Per Dr. Machuca will discuss in rounds tomorrow. * Chon Luo MD - 02/08/2018 11:31 AM CDT Formatting of this note may be different from the original. Critical Care Progress Note Today's Date: 02/08/2018 Name: Kelvin Zaldivar Admission Date: 01/24/2018 LOS: 15 days Assessment/Plan: Active Problems: Neck mass SVC (superior vena cava obstruction) Leukocytosis Hyponatremia Tobacco abuse Carcinoma of unknown origin (HCC) Airway compromise Anxiety Acute and chronic respiratory failure with hypoxia (HCC) 42 y.o.malewith a past medical history of tobaccoism with ~30 pack year hx. He developed voice hoarseness and was found to have a mass. Biopsy preformed on January 24 showed concerns for carcinoma. He was admitted to the ICU originally due to airway compromise from the mass. He went to the floor as he was stable. On 02/05, underwent PEG tube placement shortly thereafter was having difficulty breathing and required increase oxygen necessitating transfer to the MICU. Interval Updates 02/08/18 - Patient continues to have significant abdominal pain around PEG tube site. Respiratory status is improved. Will re-evaluated with additionalneck imaging today. - Continue Zosyn given significant abdominal pain. - Anticipate transfer to Oncology med/surg status on 02/09. Neuro/psych #Anxiety - Psych to continue to follow: have recommended Ativan PRN and hydroxyzine PRN. - Patient has declined psychotherapy Plan: > Continue Ativan 0.5 to 1mg TID PRN with additional 1 mg PRN prior to radiation therapy. > Continue hydroxyzine 25mg PRN (hasn't used hydroxyzine). #Pain, primarily abdominal - Patient reports increased pain at port site and G tube site especially with raising arms overhead Plan: > Re-image abdomen with KUB given persistent abdominal pain > Last BM was on 02/05; will order Movantik 25mg PO. Continue miralax and Senokot-s. > Continue fentanyl 25-50 mcg IV q1 hour PRN and additional 75 mcg IV prior to radiation therapy > Continue oxycodone 5-15 mg PO q4 hours PRN Cardiovascular #Tachycardia - Anxiety, pain, possible infection, could also be from SVC or less likely PE - Echocardiogram 02/06 without RV strain. Plan: > Continue to monitor #SVC syndrome #B UE edema - s/p recanalization and angioplasty of the left innominate vein and upper SVC on 02/04. - 02/06 Doppler u/s with acute DVT in right subclavian and axillary veins, subacute thrombus in R IJ and upper innominate veins, partially occlusive thrombus surrounding port cathter in the medial left subclavian vein, which is of uncertain chronicity. - Echocardiogram 02/06 without RV strain Plan: > Continue therapeutic lovenox Pulmonary #Neck mass s/p biopsy #Tracheostomy #Acute hypoxic respiratory failure - Increase in oxygen demand after G tube placement: likely shunting and atelectasis +/- mucus plugging, possible PNA as chest xray with worsened opacities over RLL. Differential includes tracheal edema s/p XRT, less likely. - Completed echo to evaluate for any possible component of HF; however, echo with normal LV and RV systolic function and low BNP of ~130; unlikely. - Cuff less trach was exchanged to Shiley cuff for ventilation upon transfer to ICU. Plan: > Respiratory status continues to improve; now on trach shield with FiO2 of 0.4, maintaining O2 sats >95%. > Repeated Chest xray 02/08 and it shows less dense opacity over the right LL, but doesn't show evidence of elevated/paralyzed diaphragm which was concern based on CXR from 02/06. > Respiratory techniques to thin secretions: IPV QID and duonebs. > Abx below under ID for treatment of possible PNA. #Tobacco Use Disorder -30 pack year hx Plan: > Continue nicotine patch. GI #Abdominal Pain #Enteral Nutrition -s/p PEG tube placement on 02/05 Plan: > Continue tube feeds, Isosource 1.5 goal rate of 65ml/hr > Zofran 4mg q6 hours PRN IV for nausea > Repeat KUB on 02/08; unofficial read with nonspecific gas pattern, no obvious abnormality. Will f/u formal read. #Concern for Dysphagia -Speech previously recommended video/swallow. Plan: >Nurse to attempt ice chips at bedside today 02/08, per Dr. Luo. >Speech therapy re-consulted. /Renal #EMEKA, Improved -baseline creatinine is 0.8; increased to 1.20 with rising BUN. -Given 40mg IV lasix x 1 on 02/06 AM during rapid response. -FeNa of 0.4%, suggestive of pre-renal etiology. Plan: > Creatinine improved. > Will continue to monitor; may consider IV fluids if creatinine trends up. > Avoid nephrotoxins. #Hyperuricemia, Resolved. -Uric acid of 8.3 on 02/06; likely due to chemotherapy/XRT, but patient does have significant tumor burden. -Trended down to WNL; will stop trending. Heme/Onc #Adenocarcinoma of Unknown Primary -Biopsyof neck mass on 01/24: poorly differentiated malignant neoplasm with necrosis, most compatible with high grade carcinoma - Immunostains performed reveal the carcinoma lacks features of small cell carcinoma, but morphology and immunoprofile are otherwise non-specific. Poorly differentiated non-small cell lung carcinoma remains a diagnostic possibility. - MRI brain 01/22 (OSH) - unremarkable - IR placed left chest port on 02/03/18 Plan: > Radiation therapy with chemo, received Cisplatin and etoposide 02/03/2018 (q21 days per oncology team). Cycle 2 scheduled on 02/24. > Completed 5 of 20? planned XRT fractions thus far (last on 02/07) . Next XRT treatment planned for 02/10, early AM. > Oncology following; appreciate assistance. Plan to finish XRT and give at least two cycles of chemotherapy prior to restaging to document response status. > Still awaiting send out path from [facility] (immunostain for NUT). ID #Leukocytosis #Possible pneumonia - Sirs 2/, leukocytosis and tachycardia - Procal 0.06 WNL 01/24; increased to 0.25 on 02/06. - CXR shows worsening opacities over RLL. - Strep pnuemo ag, legionella ag negative - Urine culture from 02/06 negative. - Sputum cultures 02/06 normal oropharyngeal whit. Plan: > Continue Zosyn with improvement in respiratory status clinically and radiographically. > Blood cultures NGTD; will continue to follow. FEN: no fluids, replace electrolytes PRN, NPO--Enteral feeds through PEG tube Prophylaxis Review: Lines:Yes; Port Indication: Frequent blood draws and Med not deliverable peripherally. Urinary Catheter:No. Antibiotic Usage:Yes; Infection present or suspected: Lung; Pneumonia VTE:Pharmacological prophylaxis; Enoxaparinand Mechanical prophylaxis; Sequential compression device Disposition/Family: Continued ICU admission for acute hypoxic respiratory failure. Anticipate transition to Med/Surg status on 02/09. Per fitness center attendant, patient does not have options for home health and thus will need to be able to complete care for tracheostomy and PEG tube on his own/with assistance of significant other on discharge. Code Status:Full Code Homa Owen MD Internal Medicine, PGY-1 Patient was seen and discussed with Dr. Luo. ATTESTATION I personally performed the torres portions of the E/M visit, discussed case with resident and concur with resident documentation of history, physical exam, assessment, and treatment plan unless otherwise noted. His CXR shows marked elevation of right diaphragm so consider paralysis due to mediastinal mass. Will repeat CXR and KUB to ensure no active process. Staff name: Chon Luo MD Date: 02/08/2018 __ Subjective: Kelvin Zaldivar is a 42 y.o. male. No acute events overnight. He continues to have pain primarily around the PEG tube site, but reports overall it is improved. He is tolerating tube feeds with minimal nausea, but does complain of abdominal fullness. No emesis. Still no BM, last on 02/05. He declined suppository yesterday. He denies fever, chills, vomiting, diarrhea, chest pain, headache, upper arm paraesthesias. Objective: Medications: Scheduled Meds: albuterol 0.5% (PROVENTIL; VENTOLIN) nebulizer solution 2.5 mg 2.5 mg Inhalation QID & PRN enoxaparin (LOVENOX) syringe 80 mg 1 mg/kg Subcutaneous BID nicotine (NICODERM CQ STEP 1) 21 mg/day patch 1 patch 1 patch Transdermal QDAY piperacillin/tazobactam (ZOSYN) 3.375 g/50 mL iso-osmotic IVPB 3.375 g Intravenous Q6H* polyethylene glycol 3350 (MIRALAX) packet 17 g 1 packet Oral BID senna/docusate (SENOKOT-S) solution 10 mL 10 mL Per NG tube BID Continuous Infusions: PRN and Respiratory Meds:fentaNYL citrate PF Q1H PRN, fentaNYL citrate PF QDAY PRN, hydrOXYzine TID PRN, ipratropium bromide Q6H PRN, LORazepam (ATIVAN) injection TID PRN, LORazepam (ATIVAN) injection QDAY PRN, ondansetron (ZOFRAN ) IV Q6H PRN, oxyCODONE Q4H PRN, pancrelipase 20,000 Units/ sodium bicarbonate 650 mg(#) PRN (Capacitor Assembler from Rx), simethicone Q6H PRN Vital Signs: Last Filed Vital Signs: 24 Hour Range BP: 111/64 (02/08 1100) Temp: 37 C (98.6 F) (02/08 0800) Pulse: 96 (02/08 1100) Respirations: 13 PER MINUTE (02/08 1100) SpO2: 98 % (02/08 1100) O2 Delivery: Trach Shield (02/08 1100) BP: (90-121)/(54-69) Temp: [36.7 C (98 F)-37.2 C (99 F)] Pulse: [94-110] Respirations: [10 PER MINUTE-22 PER MINUTE] SpO2: [91 %-100 %] O2 Delivery: Trach Shield Intensity Pain Scale 0-10 (Pain 1): (not recorded) Vitals: 02/06/18 0400 02/06/18 1436 02/07/18 0800 Weight: 79.6 kg (175 lb 7.8 oz) 79.6 kg (175 lb 7.8 oz) 74.1 kg (163 lb 5.8 oz) Intake/Output Summary: (Last 24 hours) Intake/Output Summary (Last 24 hours) at 02/08/18 1222 Last data filed at 02/08/18 0800 Gross per 24 hour Intake 1629 ml Output 1370 ml Net 259 ml Physical Exam: General: Alert, calm in no distress HEENT: no icterus, PERRL, EOMI Neck: supple, some upper neck congestion, trach shield in place Chest: clear to auscultation, no accessory muscle use, left chest port without evidence of infection: no erythema, induration, purulence. Cardiac: normal S1, S2. No appreciable murmur. Abdomen: hypoactive bowel sounds, tender around PEG tube site but without evidence of infection: no erythema, induration, purulence. Bandage is c/d/i Extremities: no cyanosis or clubbing, non pitting edema in upper extremities. Erythema of bilateral UEs Vascular: pulses intact Psychiatric: normal mood and affect Neurologic: alert, awake and oriented Lab Review: 24-hour labs: Results for orders placed or performed during the hospital encounter of (from the past 24 hour(s)) CBC AND DIFF Collection Time: 02/08/18 3:35 AM Result Value Ref Range White Blood Cells 10.7 4.5 - 11.0 K/UL RBC 3.72 (L) 4.4 - 5.5 M/UL Hemoglobin 11.4 (L) 13.5 - 16.5 GM/DL Hematocrit 33.3 (L) 40 - 50 % MCV 89.6 80 - 100 FL MCH 30.6 26 - 34 PG MCHC 34.1 32.0 - 36.0 G/DL RDW 13.7 11 - 15 % Platelet Count 190 150 - 400 K/UL MPV 7.4 7 - 11 FL Neutrophils 98 (H) 41 - 77 % Lymphocytes 2 (L) 24 - 44 % Monocytes 0 (L) 4 - 12 % Eosinophils 0 0 - 5 % Basophils 0 0 - 2 % Absolute Neutrophil Count 10.40 (H) 1.8 - 7.0 K/UL Absolute Lymph Count 0.20 (L) 1.0 - 4.8 K/UL Absolute Monocyte Count 0.00 0 - 0.80 K/UL Absolute Eosinophil Count 0.00 0 - 0.45 K/UL Absolute Basophil Count 0.00 0 - 0.20 K/UL COMPREHENSIVE METABOLIC PANEL Collection Time: 02/08/18 3:35 AM Result Value Ref Range Sodium 141 137 - 147 MMOL/L Potassium 4.1 3.5 - 5.1 MMOL/L Chloride 104 98 - 110 MMOL/L Glucose 101 (H) 70 - 100 MG/DL Blood Urea Nitrogen 39 (H) 7 - 25 MG/DL Creatinine 0.98 0.4 - 1.24 MG/DL Calcium 9.0 8.5 - 10.6 MG/DL Total Protein 6.1 6.0 - 8.0 G/DL Total Bilirubin 0.8 0.3 - 1.2 MG/DL Albumin 2.8 (L) 3.5 - 5.0 G/DL Alk Phosphatase 96 25 - 110 U/L AST (SGOT) 31 7 - 40 U/L CO2 31 (H) 21 - 30 MMOL/L ALT (SGPT) 54 7 - 56 U/L Anion Gap 6 3 - 12 eGFR Non >60 >60 mL/min eGFR >60 >60 mL/min MAGNESIUM Collection Time: 02/08/18 3:35 AM Result Value Ref Range Magnesium 2.0 1.6 - 2.6 mg/dL PHOSPHORUS Collection Time: 02/08/18 3:35 AM Result Value Ref Range Phosphorus 3.3 2.0 - 4.0 MG/DL URIC ACID Collection Time: 02/08/18 3:35 AM Result Value Ref Range Uric Acid 4.8 4.0 - 8.0 MG/DL Point of Care Testing: (Last 24 hours): Glucose: (!) 101 (02/08/18 0335) Radiology and Other Diagnostic Procedures Review: No new radiology to review. Homa Owen MD Pager [phone] * Andrew Sanchez, JOSE G - 02/08/2018 8:56 AM CDT 0730 - Assumed pt. care at this time, bedside safety check performed, and plan of care reviewed. 0800 - Assessment complete, see ICU flowsheet for details. VS per pt. trends. Will continue to monitor. 1150 - Report given to receiving RN at this time. * Pablo Martinez RN - 02/08/2018 7:21 AM CDT 2330: Assumed care of patient at this time. Bedside safety check completed. Assessment completed per ICU flow sheet. VS per pt trends. 02/08/2018 0310: Assessment completed per ICU flow sheet. VS per pt trends. Tube feeds held at this time. Pt reports feeling full/bloated. Simethicone given per eMAR. Pt attempts to use bedpan as he reports feeling the need to have a BM. Pt unsuccessful. Will continue to monitor. * Sharif Vallejo, RN - 02/07/2018 10:09 PM CDT 02/07 1930: Bedside safety check completed and report received. 1999: Pt assessment complete and charted in computer. Pt POC reviewed and updated. Pt A/O x 4, responds to commands, and has stable VS WDL. No additional concerns for pt at this time. Will continue to monitor pt status closely. 2299: Handoff to Pablo RN * Karen Steen - 02/07/2018 6:50 PM CDT 0730: Assumed pt care at this time. Bedside safety check performed, plan of care reviewed. 0800: Physical assessment complete, please see ICU flowsheet for details. VSS. Will continue to monitor. 0810: pt left unit via bed with this RN and Lavinia RT to radiation/oncology. VS per trends 0915: pt back to 6504 at this time. VS remained stable through radiation. Please see treatment note for detail. 1200: Patient reassessed at this time, see ICU flowsheet for details. VS per trends. Will continue to monitor. 1600: Patient reassessed at this time, see ICU flowsheet for details. VS per trends. Will continue to monitor. * Susu Bee, PT - 02/07/2018 2:54 PM CDT PHYSICAL THERAPY PROGRESS NOTE SUBJECTIVE: Subjective Significant hospital events: Transferred from OSH 01/24/[address] revealing large mass compressing airway, aortic arch and pulmonary artery, pathology revealed adenocarcinoma with unknown primary. S/P tracheostomy, remains high risk airway. G tube placed 02/05/18, post procedure patient with increased O2 requirements and transferred to ICU. PMHx tobacco use Mental / Cognitive Status: Alert;Oriented;Cooperative;Tracheostomy Persons Present: Student;Family (RN in/out) Pain: Patient complains of pain;Patient does not rate pain (also reports nausea once sitting - RN provided medication) Pain Location: Abdomen Pain Interventions: Patient agrees to participate in therapy with modifications to session Comments: Trach shield 40% FiO2 Ambulation Assist: Independent Mobility in Community without Device Patient Owned Equipment: None Home Situation: Lives with Family Type of Home: House Entry Stairs: 1-2 Stairs In-Home Stairs: No Stairs Comments: 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 BED MOBILITY/TRANSFERS: Bed Mobility/Transfers Bed Mobility: Supine to Sit: Minimal Assist;Head of Bed Elevated Bed Mobility: Sit to Supine: Minimal Assist;HOB Elevated Transfer Type: Sit to/from Stand (also performed to/from RoWalker seat) Transfer: Assistance Level: To/From;Bed;Minimal Assist Transfer: Assistive Device: (RoWalker) End Of Activity Status: In Bed;Nursing Notified;Instructed Patient to Request Assist with Mobility;Instructed Patient to Use Call Light (bed alarm activated, UEs elevated on 2 pillows each) GAIT: Gait Gait Distance: 4 feet Gait: Assistance Level: Minimal Assist;x2 People Gait: Assistive Device: (RoWALKER) Gait: Descriptors: Pace: Slow (unsteady) Activity Limited By: Weakness;Nausea;Complaint of Pain;Complaint of Fatigue Comments: VS stable EDUCATION: Education Persons Educated: Patient Patient Barriers To Learning: Impaired Communication (mouths words, gestures) Teaching Methods: Verbal Instruction;Demonstration;Printed Instructions Patient Response: Return Demonstration;More Instruction Required Topics: Plan/Goals of PT Interventions;Safety Awareness;Up with Assist Only; Importance of Increasing Activity Comments: Student instructed patient in seated exercises that can be completed over weekend if not increasing pain (either in chair mode or sitting edge of bed ). ASSESSMENT/PROGRESS: Assessment/Progress Impaired Mobility Due To: Decreased Strength;Decreased Activity Tolerance; Deconditioning;Medical Status Limitation Assessment/Progress: Should Improve w/ Continued PT Patient with decline in all mobility since transferring back to the ICU, I anticipate he may need more time and therapy prior to returning home. AM-PAC 6 Clicks Basic Mobility Inpatient Turning from your back to your side while in a flat bed without using bed rails : A Little Moving from lying on your back to sitting on the side of a flatbed without using bedrails : A Lot Moving to and from a bed to a chair (including a wheelchair): A Lot Standing up from a chair using your arms (e.g. wheelchair, or bedside chair): A Lot To walk in hospital room: A Lot Climbing 3-5 steps with a railing: Total Raw Score: 12 Standardized (T-scale) Score: 32.23 Basic Mobility CMS 0-100%: 61.94 CMS G Code Modifier for Basic Mobility: CL GOALS: Goals Goal Formulation: With Patient Time For Goal Achievement: 7 days Pt Will Go Supine To/From Sit: w/ Stand By Assist Pt Will Transfer Sit to Stand: w/ Stand By Assist Pt Will Ambulate: Greater than 200 Feet, w/ Stand By Assist, w/ Walker Pt Will Go Up / Down Stairs: 1-2 Stairs, w/ Stand By Assist PLAN: Plan Treatment Interventions: Mobility Training;Strengthening;Balance Activities; Endurance Training Plan Frequency: 5 Days per Week Comments: Assess gait with [place] next visit with assist x2. RECOMMENDATIONS: PT Discharge Recommendations PT Discharge Recommendations: Inpatient Setting Recommend ongoing assistance for: In and out of house;Transfers;Bed mobility; Ambulation;Stairs Therapist: Susu Bee, PT, DPT Date: 02/07/2018 * Winsome Guido, PATRICK - 02/07/2018 1:31 PM CDT Formatting of this note may be different from the original. Oncology Consult Progress Note Name: Kelvin Zaldivar Today's Date: 02/07/2018 Admission Date: 01/24/2018 LOS: 14 days Assessment/Plan: Active Problems: Neck mass SVC (superior vena cava obstruction) Leukocytosis Hyponatremia Tobacco abuse Carcinoma of unknown origin (HCC) Airway compromise Anxiety High Grade Carcinoma - Diff dx including lymphoma, germ cell, thyroid malignancy - Presented with hoarse/scratchy throat, dysphonia, noted a palpable right lower neck mass, progressive dyspnea - OSH CT chest- 10.8 cm mass extending from neck to chest, compressing airway involving his aortic arch, encompassing his aorta and pulmonary artery - ENT, CTS, Rad onc consulted - Current tobacco use- 1.5 pack/day 20 + years - LDH elevated at 367, Beta HCG (wnl) 1, AFP (wnl) 2 - Testicular exam w/o mass - 01/24/18: Bronchoscopy, tracheostomy - 01/14/18: IR core biopsy of right supraclavicular mass - Flow cytometry negative for evidence of lymphoma - Pathology: 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 Awaiting additional staining - Adipose tissue, "right neck mass", biopsy: Poorly differentiated malignant neoplasm with necrosis, most compatible with high grade carcinoma, PDL1 20% positive OSH Imaging: - CT neck: right supraclavicular mass (10.8 cm) no discrete thyroid mass - CT neck- infiltrative soft tissue mass, extends to right supraclavicular region, involving mediastinal subcarinal, hilar regions, trachea narrowed - MRI Donald- negative for evidence of mass [facility] Radiology Review (per verbal report) - Diffuse right neck adenopathy, with significant trachea narrowing, diffuse lower neck adenopathy, separate from thyroid (no discrete thyroid mass seen) - Hilar, mediastinal small right pleural effusion, liver lesions too small to characterized, enlarged retroperitoneal lymph nodes Plan - Patient to ICU following PEG placement, for hypoxia - Completed cycle 1 Cisplatin + Etopside on 02/04/18. Will continue to monitor daily counts. Cycle 2 scheduled on 02/24. - Radiation therapy continuing - Ongoing anxiety, with only short acting relief with PRN Ativan. Psychiatry following - Patient with questions about ongoing care closer to home. From med-onc standpoint, can arrange follow up closer to home, Would defer to radiation oncology regarding logistics of transferring care during active treatment to facility closer to home - Case management looking into options such as [facility] for patient and family at discharge - Patient's sister wanting to discuss prognosis outside of patient's room, discussed that prognosis will be guided by patient's response to treatment, on exam, patient with decreased size of palpable right cervical lymph node Patient discussed with Dr. Yeboah Subjective Kelvin Zaldivar is a 42 y.o. male. No acute events overnight. Patient reports ongoing, episodes of anxiety- that happen after procedures or when he has been up out of bed. Reports Ativan has helped, but does not provide lasting relief. Denies any current pain, no nausea, vomiting, chest pain or trouble breathing. Medications Scheduled Meds: albuterol 0.5% (PROVENTIL; VENTOLIN) nebulizer solution 2.5 mg 2.5 mg Inhalation QID & PRN bisacodyl (DULCOLAX) rectal suppository 10 mg 10 mg Rectal ONCE enoxaparin (LOVENOX) syringe 80 mg 1 mg/kg Subcutaneous BID nicotine (NICODERM CQ STEP 1) 21 mg/day patch 1 patch 1 patch Transdermal QDAY ondansetron (ZOFRAN) 16 mg, dexamethasone (DECADRON) 8 mg in sodium chloride 0.9 % (NS) 58.8 mL IVPB Intravenous Q24H* piperacillin/tazobactam (ZOSYN) 3.375 g/50 mL iso-osmotic IVPB 3.375 g Intravenous Q6H* polyethylene glycol 3350 (MIRALAX) packet 17 g 1 packet Oral BID senna/docusate (SENOKOT-S) solution 10 mL 10 mL Per NG tube BID Continuous Infusions: PRN and Respiratory Meds:fentaNYL citrate PF Q1H PRN, fentaNYL citrate PF QDAY PRN, hydrOXYzine TID PRN, ipratropium bromide Q6H PRN, LORazepam (ATIVAN) injection TID PRN, LORazepam (ATIVAN) injection QDAY PRN, ondansetron (ZOFRAN ) IV Q6H PRN, oxyCODONE Q4H PRN, pancrelipase 20,000 Units/ sodium bicarbonate 650 mg(#) PRN (Capacitor Assembler from Rx), polyethylene glycol 3350 BID PRN Objective Vital Signs: Last Filed Vital Signs: 24 Hour Range BP: 121/69 (02/07 1300) Temp: 36.6 C (97.9 F) (02/07 1200) Pulse: 102 (02/07 1300) Respirations: 12 PER MINUTE (02/07 1300) SpO2: 92 % (02/07 1300) O2 Delivery: Trach Shield (02/07 1300) SpO2 Pulse: 103 (02/07 1300) Height: 182.9 cm (72") (02/06 1436) BP: (96-154)/(56-132) Temp: [36.6 C (97.9 F)-37.2 C (99 F)] Pulse: [98-110] Respirations: [9 PER MINUTE-19 PER MINUTE] SpO2: [92 %-100 %] O2 Delivery: Trach Shield Intensity Pain Scale 0-10 (Pain 1): Asleep (02/07/18 1200) Vitals: 02/06/18 0400 02/06/18 1436 02/07/18 0800 Weight: 79.6 kg (175 lb 7.8 oz) 79.6 kg (175 lb 7.8 oz) 74.1 kg (163 lb 5.8 oz) Intake/Output Summary: (Last 24 hours) Intake/Output Summary (Last 24 hours) at 02/07/18 1332 Last data filed at 02/07/18 1200 Gross per 24 hour Intake 1938 ml Output 1450 ml Net 488 ml Stool Occurrence: 1 Review of Systems: A 14 point review of systems was negative except for: Constitutional: positive for fatigue Physical Exam General appearance: Alert, cooperative, no distress Head: Normocephalic, atraumatic Eyes: PERRL Neck: Tracheostomy Lungs: Non-labored, left chest port Heart: regular rate and rhythm Extremities: No edema Neurologic: No focal deficits Lab Review 24-hour labs: Results for orders placed or performed during the hospital encounter of (from the past 24 hour(s)) CBC AND DIFF Collection Time: 02/07/18 4:40 AM Result Value Ref Range White Blood Cells 19.8 (H) 4.5 - 11.0 K/UL RBC 4.02 (L) 4.4 - 5.5 M/UL Hemoglobin 12.4 (L) 13.5 - 16.5 GM/DL Hematocrit 35.7 (L) 40 - 50 % MCV 88.8 80 - 100 FL MCH 30.7 26 - 34 PG MCHC 34.6 32.0 - 36.0 G/DL RDW 14.3 11 - 15 % Platelet Count 228 150 - 400 K/UL MPV 6.8 (L) 7 - 11 FL Neutrophils 98 (H) 41 - 77 % Lymphocytes 1 (L) 24 - 44 % Monocytes 0 (L) 4 - 12 % Eosinophils 0 0 - 5 % Basophils 1 0 - 2 % Absolute Neutrophil Count 19.40 (H) 1.8 - 7.0 K/UL Absolute Lymph Count 0.30 (L) 1.0 - 4.8 K/UL Absolute Monocyte Count 0.10 0 - 0.80 K/UL Absolute Eosinophil Count 0.00 0 - 0.45 K/UL Absolute Basophil Count 0.10 0 - 0.20 K/UL PROTIME INR (PT) Collection Time: 02/07/18 4:40 AM Result Value Ref Range INR 1.6 (H) 0.8 - 1.2 COMPREHENSIVE METABOLIC PANEL Collection Time: 02/07/18 4:40 AM Result Value Ref Range Sodium 137 137 - 147 MMOL/L Potassium 4.1 3.5 - 5.1 MMOL/L Chloride 99 98 - 110 MMOL/L Glucose 109 (H) 70 - 100 MG/DL Blood Urea Nitrogen 46 (H) 7 - 25 MG/DL Creatinine 1.20 0.4 - 1.24 MG/DL Calcium 9.5 8.5 - 10.6 MG/DL Total Protein 6.4 6.0 - 8.0 G/DL Total Bilirubin 1.3 (H) 0.3 - 1.2 MG/DL Albumin 3.1 (L) 3.5 - 5.0 G/DL Alk Phosphatase 107 25 - 110 U/L AST (SGOT) 38 7 - 40 U/L CO2 28 21 - 30 MMOL/L ALT (SGPT) 56 7 - 56 U/L Anion Gap 10 3 - 12 eGFR Non >60 >60 mL/min eGFR >60 >60 mL/min MAGNESIUM Collection Time: 02/07/18 4:40 AM Result Value Ref Range Magnesium 2.1 1.6 - 2.6 mg/dL PHOSPHORUS Collection Time: 02/07/18 4:40 AM Result Value Ref Range Phosphorus 4.8 (H) 2.0 - 4.0 MG/DL URIC ACID Collection Time: 02/07/18 4:40 AM Result Value Ref Range Uric Acid 6.5 4.0 - 8.0 MG/DL CREATININE-URINE RANDOM Collection Time: 02/07/18 11:56 AM Result Value Ref Range Creatinine, Random 79 MG/DL SODIUM-URINE RANDOM Collection Time: 02/07/18 11:56 AM Result Value Ref Range Sodium, Random 35 MMOL/L Point of Care Testing (Last 24 hours) Glucose: (!) 109 (02/07/18 0440) Radiology and other Diagnostics Review: Pertinent radiology reviewed. Winsome Guido, PRODUCTION MACHINIST [phone] Associated attestation - ObinnaCaesar MD - 02/07/2018 4:38 PM CDT I have reviewed subjective and objective findings with the nurse practitioner and I have personally interviewed and examined the patient. The SOLE STAINER's assessment and plan correspond to my own medical decision making. 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 Relatively low burden metastatic disease. Disc/Rec: Reviewed diagnostic findings and treatment plan with patient's sister. We are now at Day 5 of cycle 1 of Carbo/BINDER SORTER-16. XRT is ongoing. The chemotherapy was tolerated well to this point. On exam my impression is that the mass has decreased significantly. As long as he appears to be responding will plan to finish XRT and give at least two cycles of Chemotherapy before restaging to document response status. Caesar Yeboah * Clement Donohue MD - 02/07/2018 11:25 AM CDT Formatting of this note may be different from the original. Psychiatric Consultation Progress Note LOS: 14 days Current Psychotropic Meds: Ativan .5mg TID PRN Hydroxyzine 25mg TID PRN Zyprexa 10mg QHS Psychiatric Assessment: 1. Adjustment reaction with anxious distress Recommendations: Patient feels that his anxiety symptoms are well controlled; continue current regimen of Ativan .5mg TID PRN along with extra doses for XRT therapy Hydroxyzine 25mg TID PRN remains available for anxiety symptoms; has not used this Olanzapine 10mg QHS completed 02/06 for N/V symptoms Patient still does not want scheduled antidepressant or to meet with psychology team at this time. Seen and discussed with: Dr. Craven Please feel free to contact us with any additional questions or concerns by paging the consult team between 8am and 5pm on weekdays and between 8am and 3pm on weekends at [phone]. Otherwise, page the vice president medical affairs insurance verification specialist. Subjective: Kelvin Zaldivar was seen today with tracheostomy and PEG tube in place. He appeared to be in good spirits. Mood was "alright." Communicates via writing or hand/ facial gestures. Feels his anxiety is "better." Again reminded him that he also has hydroxyzine available PRN for anxiety if he wants this. Not interested in scheduled psychotropics. Denies SI/HI/AVH. 14 point ROS negative except Resp: breathing discomfort Objective: Vital Signs: Current Vital Signs: 24 Hour Range BP: 116/63 (02/07 1100) Temp: 36.7 C (98 F) (02/07 0800) Pulse: 105 (02/07 1100) Respirations: 14 PER MINUTE (02/07 1100) SpO2: 94 % (02/07 1100) O2 Delivery: Trach Shield (02/07 1100) SpO2 Pulse: 105 (02/07 1100) Height: 182.9 cm (72") (02/06 1436) BP: (96-154)/(56-132) Temp: [36.7 C (98 F)-37.2 C (99 F)] Pulse: [98-110] Respirations: [9 PER MINUTE-19 PER MINUTE] SpO2: [94 %-100 %] O2 Delivery: Trach Shield Intensity Pain Scale 0-10 (Pain 1): 6 (02/07/18 105) Scheduled Medications: albuterol 0.5% (PROVENTIL; VENTOLIN) nebulizer solution 2.5 mg 2.5 mg Inhalation QID & PRN bisacodyl (DULCOLAX) rectal suppository 10 mg 10 mg Rectal ONCE enoxaparin (LOVENOX) syringe 80 mg 1 mg/kg Subcutaneous BID nicotine (NICODERM CQ STEP 1) 21 mg/day patch 1 patch 1 patch Transdermal QDAY ondansetron (ZOFRAN) 16 mg, dexamethasone (DECADRON) 8 mg in sodium chloride 0.9 % (NS) 58.8 mL IVPB Intravenous Q24H* piperacillin/tazobactam (ZOSYN) 3.375 g/50 mL iso-osmotic IVPB 3.375 g Intravenous Q6H* polyethylene glycol 3350 (MIRALAX) packet 17 g 1 packet Oral BID senna/docusate (SENOKOT-S) solution 10 mL 10 mL Per NG tube BID PRN Medications: fentaNYL citrate PF Q1H PRN 50 mcg at 02/07/18 1057, fentaNYL citrate PF QDAY PRN, hydrOXYzine TID PRN, ipratropium bromide Q6H PRN 0.5 mg at 02/06/18 0415, LORazepam (ATIVAN) injection TID PRN 1 mg at 02/07/18 0737, LORazepam (ATIVAN ) injection QDAY PRN, ondansetron (ZOFRAN) IV Q6H PRN 4 mg at 02/06/18 1110, oxyCODONE Q4H PRN 15 mg at 02/07/18 1000, pancrelipase 20,000 Units/ sodium bicarbonate 650 mg(#) PRN (Capacitor Assembler from Rx), polyethylene glycol 3350 BID PRN Mental Status Exam: General/Constitutional: 42 yo CM with tracheostomy and PEG tube in place. In NAD, family present Speech/Motor: unable to speak vocally; uses writing; no PMR noted Mood/Affect: "alright"/ euthymic Thought Process: linear Associations: appears intact Thought Content: denies SI/HI Perception: denies AVH Insight/Judgment: fair/ fair Orientation: grossly oriented Recent and Remote Memory: appears normal Attention span and concentration: fair Language: Indonesian, fluent Fund of knowledge and vocabulary: appropriate for education Focused Physical Exam: Neuro: gait not observed Resp: tracheostomy GI: PEG tube Clement Donohue MD Associated attestation - Karen Craven DO - 02/07/2018 12:17 PM CDT Formatting of this note may be different from the original. ATTESTATION I personally performed the torres portions of the E/M visit, discussed the case with the resident and concur with resident documentation of history, physical exam, assessment, and treatment plan unless otherwise noted. I personally participated in development of the plan of care. Per [facility]ITE ativan 0.5-1mg po TID prn anxiety with additional 1mg prn prior to radiation therapy. Monitor respiratory status with concurrent benzo use. Please feel free to contact us with any additional questions or concerns by paging the consult team between 8am and 5pm on weekdays and between 8am and 3pm on weekends [phone]. Otherwise, page the vice president medical affairs insurance verification specialist. Staff name: Karen Craven DO Date: 02/07/2018 * Nayana Meeks MS,CCC-TECHNOLOGY ASSISTANT - 02/07/2018 9:28 AM CDT SPEECH-LANGUAGE PATHOLOGY NO TREATMENT NOTE Chart reviewed and discussed in huddle. Pt requiring increased respiratory support and previously determined not appropriate candidate for speaking valve due to mass. Prior to respiratory status change, pt functionally communicating wants/needs/ideas via written expression and mouthing words. May benefit from evaluation of swallow when medically appropriate in the future; anticipate videoswallow study would be indicated prior to diet initiation. No further acute TECHNOLOGY ASSISTANT needs at this time. TECHNOLOGY ASSISTANT will sign off. RECOMMENDATIONS Assist pt with other means of communication (e.g. Writing, mouthing words) When medically appropriate, will benefit from videoswallow study to assess swallow. Therapist: Nayana Meeks MS,[facility]-TECHNOLOGY ASSISTANT [id number] Date: 02/07/2018 * Pablo Martinez RN - 02/07/2018 6:37 AM CDT 1912: Assumed care of patient at this time. Bedside safety check completed. Plan of care reviewed with Pt at bedside and pt expresses wish to sleep tonight. RN will attempt to sleep bundle this pt and collaborate with RT. Pt education given. 2000: Assessment completed per ICU flow sheet. VS per pt trends. ~2330: Pt place on 03/01 per RT. Pt tolerates. O2 Sat: high 90's Plans for trach shield during day tomorrow. 0000: Assessment completed per ICU flow sheet. VS per pt trends. 0400: Assessment completed per ICU flow sheet. VS per pt trends. Will continue to monitor. * Homa Owen MD - 02/07/2018 5:56 AM CDT Formatting of this note may be different from the original. Critical Care Progress Note Today's Date: 02/07/2018 Name: Kelvin Zaldivar Admission Date: 01/24/2018 LOS: 14 days Assessment/Plan: Active Problems: Neck mass SVC (superior vena cava obstruction) Leukocytosis Hyponatremia Tobacco abuse Carcinoma of unknown origin (HCC) Airway compromise Anxiety 42 y.o.malewith a past medical history of tobaccoism with ~30 pack year hx. He developed voice hoarseness and was found to have a neck mass. Biopsy preformed on January 24 showed concerns for carcinoma. He was admitted to the ICU originally due to airway compromise from the mass. He went to the floor as he was stable. On 02/05, underwent PEG tube placement shortly thereafter was having difficulty breathing and required increase oxygen necessitating transfer to the MICU. Interval Updates 02/07/18 - Pain regimen adjusted in effort to provide better baseline control and less need for breakthrough fentanyl. - Turn off vent and switch to trach shield. If does well overnight, plan to transfer to med/surg status on 02/08. - Rec'd 5 fraction of XRT on 02/07; tolerated well. Next XRT session planned for 02/10 AM. Neuro/psych #Anxiety - Psych to continue to follow: have recommended Ativan PRN and hydroxyzine PRN. - Patient has declined psychotherapy Plan: > Continue Ativan 0.5 to 1mg TID PRN with additional 1 mg PRN prior to radiation therapy. > Continue hydroxyzine 25mg PRN (hasn't used hydroxyzine). > Completed olanzapine as part of chemo protocol (last dose today ). #Pain - Patient reports increased pain at port site and G tube site especially with raising arms overhead Plan: > Continue fentanyl 25-50 mcg IV q1 hour PRN and additional 75 mcg IV prior to radiation therapy > Discontinue Percocet and switch to oxycodone 5-15 mg PO q4 hours PRN > Discontinue morphine. > Continue aggressive bowel regimen with opoid pain medications. (last BM 02/05) Cardiovascular #Tachycardia - Anxiety versus infection versus hypoxia, could also be from SVC or less likely PE - Echocardiogram 02/06 without RV strain. Plan: > Continue to monitor #SVC syndrome #B UE edema - s/p recanalization and angioplasty of the left innominate vein and upper SVC on 02/04. - 02/06 Doppler u/s with acute DVT in right subclavian and axillary veins, subacute thrombus in R IJ and upper innominate veins, partially occlusive thrombus surrounding port cathter in the medial left subclavian vein, which is of uncertain chronicity. - Echocardiogram 02/06 without RV strain Plan: > Continue therapeutic lovenox Pulmonary #Neck mass s/p biopsy #Tracheostomy #Acute hypoxic respiratory failure - Increase in oxygen demand after G tube placement: likely shunting and atelectasis +/- mucus plugging, possible PNA as chest xray with worsened opacities over RLL. Differential includes tracheal edema s/p XRT, less likely. - Completed echo to evaluate for any possible component of HF; however, echo with normal LV and RV systolic function and low BNP of ~130; unlikely. Plan: > Cuff less trach was exchanged to Shiley cuff for ventilation. Patient continues to require less ventilator support. Was on pressure support this AM: 08/01. Will plan to trial on trach shield today, 02/07, after XRT. If stable overnight, will likely be able to transition to med/surg status on 02/08. > Respiratory techniques to thin secretions: IPV QID and duonebs. > Will discontinue acetylcysteine. > Abx below under ID for treatment of possible PNA. #Tobacco Use Disorder -30 pack year hx Plan: > Continue nicotine patch. GI -s/p PEG tube placement on 02/05; tolerating tube feeds without dififculty Plan: > Continue tube feeds, Isosource 1.5 goal rate of 65ml/hr > Zofran 4mg q6 hours PRN IV for nausea /Renal #EMEKA -baseline creatinine is 0.8; increased to 1.20 with rising BUN. -Given 40mg IV lasix x 1 on 02/06 AM during rapid response. Plan: > FeNa of 0.4%, suggestive of pre-renal etiology. Suspect due to poor PO intake/NPO for procedures. > Will continue to monitor; may consider IV fluids if creatinine continues to trend up. > Avoid nephrotoxins; will discontinue Vancomycin. #Hyperuricemia -Uric acid of 8.3 on 02/06; likely due to chemotherapy/XRT, but patient does have significant tumor burden. Plan: >Trend with daily uric acid; decrease today, 02/07, to 6.5. Monitor for TLS/urate nephropathy. Heme/Onc #Adenocarcinoma of Unknown Primary -Biopsyof neck mass on 01/24: poorly differentiated malignant neoplasm with necrosis, most compatible with high grade carcinoma - MRI brain 01/22 (OS[facility]) - unremarkable - IR placed left chest port on 02/03/18 Plan: > Radiation therapy with chemo, received Cisplatin and etoposide 02/03/2018 (q21 days per oncology team). > Completed 5 of 20 planned XRT fractions thus far (02/07). Next XRT treatment planned for 02/10, early AM. > Oncology following; to speak with patient and family at bedside today. ID #Leukocytosis #Possible pneumonia - Sirs 2/, leukocytosis and tachycardia - Procal 0.06 WNL 01/24; increased to 0.25 on 02/06. - CXR shows worsening opacities over RLL. - Strep pnuemo ag, legionella ag negative - Urine culture from 02/06 negative. Plan: > Continue Zosyn; may consider discontinuation on 02/08 if no micro data suggestive of infection. Suspect atelectasis/splinting is cause of his acute decompensation rather than infection. > Discontinue Vancomycin. > Blood cultures NG x 1 day > Sputum culture pending (gram stain with many mixed bacteria). FEN: no fluids, replace electrolytes PRN, NPO--Enteral feeds through PEG tube Prophylaxis Review: Lines:Yes; Port Indication: Frequent blood draws and Med not deliverable peripherally. Urinary Catheter:No. Antibiotic Usage:Yes; Infection present or suspected: Lung; Pneumonia VTE:Pharmacological prophylaxis; Enoxaparinand Mechanical prophylaxis; Sequential compression device Disposition/Family: Continued ICU admission for acute hypoxic respiratory failure. Anticipate transition to Med/Surg status on 02/08. Per fitness center attendant, patient does not have options for home health and thus will need to be able to complete care for tracheostomy and PEG tube on his own/with assistance of significant other on discharge. Code Status:Full Code Homa Owen MD Internal Medicine, PGY-1 Patient was seen and discussed with Dr. Bay. __ Subjective: Kelvin Zaldivar is a 42 y.o. male. No acute events overnight. He continues to have pain primarily around the PEG tube site. He is tolerating tube feeds with minimal nausea. No emesis. He doesn' t feel like he is passing much gas. Last BM was on 02/05. He denies fever, chills, vomiting, diarrhea, chest pain, headache. Sister from [place] is at bedside and requests to speak with Oncology team. Luzma Onc SOLE STAINER insurance verification specialist, notified and stated they would see patient later this afternoon. Objective: Medications: Scheduled Meds: albuterol 0.5% (PROVENTIL; VENTOLIN) nebulizer solution 2.5 mg 2.5 mg Inhalation QID & PRN bisacodyl (DULCOLAX) rectal suppository 10 mg 10 mg Rectal ONCE enoxaparin (LOVENOX) syringe 80 mg 1 mg/kg Subcutaneous BID nicotine (NICODERM CQ STEP 1) 21 mg/day patch 1 patch 1 patch Transdermal QDAY ondansetron (ZOFRAN) 16 mg, dexamethasone (DECADRON) 8 mg in sodium chloride 0.9 % (NS) 58.8 mL IVPB Intravenous Q24H* piperacillin/tazobactam (ZOSYN) 3.375 g/50 mL iso-osmotic IVPB 3.375 g Intravenous Q6H* polyethylene glycol 3350 (MIRALAX) packet 17 g 1 packet Oral BID senna/docusate (SENOKOT-S) solution 10 mL 10 mL Per NG tube BID Continuous Infusions: PRN and Respiratory Meds:fentaNYL citrate PF Q1H PRN, fentaNYL citrate PF QDAY PRN, hydrOXYzine TID PRN, ipratropium bromide Q6H PRN, LORazepam (ATIVAN) injection TID PRN, LORazepam (ATIVAN) injection QDAY PRN, ondansetron (ZOFRAN ) IV Q6H PRN, oxyCODONE Q4H PRN, pancrelipase 20,000 Units/ sodium bicarbonate 650 mg(#) PRN (Capacitor Assembler from Rx), polyethylene glycol 3350 BID PRN Vital Signs: Last Filed Vital Signs: 24 Hour Range BP: 121/69 (02/07 1300) Temp: 36.6 C (97.9 F) (02/07 1200) Pulse: 102 (02/07 1300) Respirations: 12 PER MINUTE (02/07 1300) SpO2: 92 % (02/07 1300) O2 Delivery: Trach Shield (02/07 1300) Height: 182.9 cm (72") (02/06 1436) Weight: 74.1 kg (163 lb 5.8 oz) (02/07 0800) BP: (96-154)/(56-132) Temp: [36.6 C (97.9 F)-37.2 C (99 F)] Pulse: [98-110] Respirations: [9 PER MINUTE-19 PER MINUTE] SpO2: [92 %-100 %] O2 Delivery: Trach Shield Intensity Pain Scale 0-10 (Pain 1): Asleep (02/07/18 1200) Vitals: 02/06/18 0400 02/06/18 1436 02/07/18 0800 Weight: 79.6 kg (175 lb 7.8 oz) 79.6 kg (175 lb 7.8 oz) 74.1 kg (163 lb 5.8 oz) Intake/Output Summary: (Last 24 hours) Intake/Output Summary (Last 24 hours) at 02/07/18 1343 Last data filed at 02/07/18 1200 Gross per 24 hour Intake 1938 ml Output 1450 ml Net 488 ml Physical Exam: General: Alert, calm in no distress HEENT: no icterus, PERRL, EOMI Neck: supple, some upper neck congestion, tracheostomy present connected to vent Chest: clear to auscultation, no accessory muscle use, left chest port with evidence of infection: no erythema, induration, purulence. Cardiac: normal S1, S2. No appreciable murmur. Abdomen: hypoactive bowel sounds, tender G tube site Extremities: no cyanosis or clubbing, non pitting edema in upper extremities. Erythema of bilateral UEs Vascular: pulses intact Psychiatric: normal mood and affect Neurologic: alert, awake and oriented Lab Review: 24-hour labs: Results for orders placed or performed during the hospital encounter of (from the past 24 hour(s)) CBC AND DIFF Collection Time: 02/07/18 4:40 AM Result Value Ref Range White Blood Cells 19.8 (H) 4.5 - 11.0 K/UL RBC 4.02 (L) 4.4 - 5.5 M/UL Hemoglobin 12.4 (L) 13.5 - 16.5 GM/DL Hematocrit 35.7 (L) 40 - 50 % MCV 88.8 80 - 100 FL MCH 30.7 26 - 34 PG MCHC 34.6 32.0 - 36.0 G/DL RDW 14.3 11 - 15 % Platelet Count 228 150 - 400 K/UL MPV 6.8 (L) 7 - 11 FL Neutrophils 98 (H) 41 - 77 % Lymphocytes 1 (L) 24 - 44 % Monocytes 0 (L) 4 - 12 % Eosinophils 0 0 - 5 % Basophils 1 0 - 2 % Absolute Neutrophil Count 19.40 (H) 1.8 - 7.0 K/UL Absolute Lymph Count 0.30 (L) 1.0 - 4.8 K/UL Absolute Monocyte Count 0.10 0 - 0.80 K/UL Absolute Eosinophil Count 0.00 0 - 0.45 K/UL Absolute Basophil Count 0.10 0 - 0.20 K/UL PROTIME INR (PT) Collection Time: 02/07/18 4:40 AM Result Value Ref Range INR 1.6 (H) 0.8 - 1.2 COMPREHENSIVE METABOLIC PANEL Collection Time: 02/07/18 4:40 AM Result Value Ref Range Sodium 137 137 - 147 MMOL/L Potassium 4.1 3.5 - 5.1 MMOL/L Chloride 99 98 - 110 MMOL/L Glucose 109 (H) 70 - 100 MG/DL Blood Urea Nitrogen 46 (H) 7 - 25 MG/DL Creatinine 1.20 0.4 - 1.24 MG/DL Calcium 9.5 8.5 - 10.6 MG/DL Total Protein 6.4 6.0 - 8.0 G/DL Total Bilirubin 1.3 (H) 0.3 - 1.2 MG/DL Albumin 3.1 (L) 3.5 - 5.0 G/DL Alk Phosphatase 107 25 - 110 U/L AST (SGOT) 38 7 - 40 U/L CO2 28 21 - 30 MMOL/L ALT (SGPT) 56 7 - 56 U/L Anion Gap 10 3 - 12 eGFR Non >60 >60 mL/min eGFR >60 >60 mL/min MAGNESIUM Collection Time: 02/07/18 4:40 AM Result Value Ref Range Magnesium 2.1 1.6 - 2.6 mg/dL PHOSPHORUS Collection Time: 02/07/18 4:40 AM Result Value Ref Range Phosphorus 4.8 (H) 2.0 - 4.0 MG/DL URIC ACID Collection Time: 02/07/18 4:40 AM Result Value Ref Range Uric Acid 6.5 4.0 - 8.0 MG/DL CREATININE-URINE RANDOM Collection Time: 02/07/18 11:56 AM Result Value Ref Range Creatinine, Random 79 MG/DL SODIUM-URINE RANDOM Collection Time: 02/07/18 11:56 AM Result Value Ref Range Sodium, Random 35 MMOL/L Point of Care Testing: (Last 24 hours): Glucose: (!) 109 (02/07/18 0440) Radiology and Other Diagnostic Procedures Review: No new radiology to review. Homa Owen MD Pager [phone] Associated attestation - Gabrielle Bay MD - 02/07/2018 7:11 PM CDT ATTESTATION Kelvin Zaldivar was seen, personally fully examined, and discussed with ICU team. I have reviewed all pertinent labs, images, and diagnostic studies outlined in the associated note. I agree with the objective findings and with the plan of care as documented with the exceptions noted. Kelvin Zaldivar is critically ill with Active Problems: Neck mass SVC (superior vena cava obstruction) Leukocytosis Hyponatremia Tobacco abuse Carcinoma of unknown origin (HCC) Airway compromise Anxiety Acute and chronic respiratory failure with hypoxia (HCC) Overall Impression: Kelvin Zaldivar is a 42 y.o. 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 Acute hypoxic respiratory failure leading to ICU transfer almost certainly atelectasis 2/2 splinting (pain from PEG) and mucus plugging. Now on trach shield doing great. Mr Zaldivar has now tolerated XRT for two days with more aggressive pre-med with opioids and ativan. Will enter standing order. Also, given how important these 10 XRT treatments are for symptoms control, RT has agreed to leave the travel vent in room even after transfer to floor and travel to XRT with patient. I do NOT think he will require vent support, event if additional pain meds are needed, but if so, it will be available. I spent 35 minutes (excluding time spent performing or supervising any procedures) providing and personally directing critical care services including: - systems review and physical examination - review of serial hemodynamic, respiratory, telemetry, laboratory, and imaging data - review of medications - management of fluids/electrolytes, antibiotics, vasopressors, sepsis protocol , gas exchange/mechanical ventilation, ICU prophylaxis, and ICU core measures - organization and coordination of care plan with patient (or surrogate), ICU team and consulting services. - directing the formulation of the overall plan of care outlined above. Kelvin Zaldivar remains at high risk of life threatening deterioration and thereby necessitates complex medical decision making and ongoing provision of ICU level care. Gabrielle Bay MD [phone] * Homa Owen MD - 02/06/2018 5:34 PM CDT Update to Critical Care H&P Today's Date: 02/06/2018 Name: Kelvin Zaldivar Admission Date: 01/24/2018 LOS: 13 days Assessment/Plan: Active Problems: Neck mass SVC (superior vena cava obstruction) Leukocytosis Hyponatremia Tobacco abuse Carcinoma of unknown origin (HCC) Airway compromise Anxiety 42 y.o.malewith a past medical history of tobaccoism with ~30 pack year hx. He developed voice hoarseness and was found to have a neck mass. Biopsy preformed on January 24 showed concerns for carcinoma. He was admitted to the ICU originally due to airway compromise from the mass. He went to the floor as he was stable. Today, he had a procedure for a G tube placement. Shortly after he was having difficulty breathing and required increase oxygen. Neuro/psych #Anxiety - AAOx4 - MRI brain (01/22): unremarkable - Psych to continue to follow: have recommended Ativan PRN and hydroxyzine PRN Plan: >Continue Ativan and hydroxyzine PRN (especially prior to XRT treatments) >Completed olanzapine as part of chemo protocol (last dose today 02/06). #Pain -patient reports increased pain at port site and G tube site especially with raising arms overhead Plan: >Continue fentanyl 25-50 mcg q1 hour PRN >Continue oxycodone/acetaminophen 5/325 mg tablet q4 hours PRN >Continue morphine 2-4mg QD prior to radiation therapy treatment Cardiovascular #Tachycardia - Anxiety versus infection versus hypoxia, could also be from PE - Echocardiogram 02/06 without RV strain. Plan: >Continue to monitor; may consider CTA if hypoxemia does not resolve #SVC syndrome #B UE edema - 02/06 Doppler u/s with acute DVT in right subclavian and axillary veins, subacute thrombus in R IJ and upper innominate veins, partially occlusive thrombus surrounding port cathter in the medial left subclavian vein, which is of uncertain chronicity. - Echocardiogram 02/06 without RV strain Plan: > Start therapeutic lovenox > May need to consider CTA Pulmonary #Neck mass s/p biopsy #Tracheostomy #Acute hypoxic respiratory failure - Increase in oxygen demand after G tube placement: likely shunting and atelectasis +/- mucus plugging, possible PNA as chest xray with worsened opacities over RLL. Differential includes tracheal edema s/p XRT, less likely. - Completed echo to evaluate for any possible component of HF; however, echo with normal LV and RV systolic function and low BNP of ~130; unlikely. Plan: >Cuff less trach was exchanged to Shiley cuff for ventilation: continue ventilation. Current vent settings are Pressure support PIP: 15, PEEP 10, RR: 15 , FiO2: 0.4. (FiO2 decreased from 1 early today). >Respiratory techniques to thin secretions: IPV and acetylcysteine QID + duonebs QID. >Abx below under ID for treatment of possible PNA. #Tobacco Use Disorder -30 pack year hx Plan: >Continue nicotine patch GI -s/p PEG tube placement on 02/05 Plan: >Start tube feeds today, Isosource 1.5 goal rate of 65ml/hr >zofran for nausea /Renal #Elevated creatinine -baseline creatinine is 0.8; increased to 1.08 with rising BUN Plan: >No additional diuresis today >Monitor Creatinine/BUN #Hyperuricemia -Uric acid of 8.3 on 02/06; likely due to chemotherapy/XRT, but patient does have significant tumor burden. . Less concern for TLS with solid tumor, but will monitor. Plan: >Trend with daily uric acid and consider starting allopurinol. Heme/Onc #Adenocarcinoma of Unknown Primary -Biopsy of neck mass on 01/24: poorly differentiated malignant neoplasm with necrosis, most compatible with high grade carcinoma - MRI brain 01/22 (OSH) - unremarkable - IR placed left chest port on 02/03/18 Plan: > Radiation therapy with chemo, received Cisplatin and etoposide 02/03/2018 (q21 days per oncology team) > Continuing XRT today, 02/06--has skipped the last two days due to untolerable pain when lifting arms overhead. Has completed 3 fractions thus far (4th today, 02/06). > Oncology following ID #Leukocytosis #Possible pneumonia - Sirs 2/, leukocytosis and tachycardia - Procal 0.06 WNL 01/24; increased to 0.25 on 02/06. - CXR shows worsening opacities over RLL. - Strep pnuemo ag, legionella ag negative Plan: >Continue Vancomycin and Zosyn, start date: 02/05 >Follow up blood, urine and sputum cutlure: pending FEN: no fluids, replace electrolytes PRN, NPO--Enteral feeds through PEG tube Prophylaxis Review: Lines: Yes; Port Indication: Frequent blood draws and Med not deliverable peripherally; Urinary Catheter: No Antibiotic Usage: Yes; Infection present or suspected: Lung; Pneumonia VTE: Pharmacological prophylaxis; Enoxaparin and Mechanical prophylaxis; Sequential compression device Disposition/Family: Continued ICU admission for acute hypoxic respiratory failure Code Status: Full Code Homa Owen MD Internal Medicine, PGY-1 Patient was seen and discussed with Dr. Bay. Please see H&P from earlier this date for HPI and objective information. Associated attestation - Gabrielle Bay MD - 02/06/2018 6:39 PM CDT ATTESTATION Kelvin Zaldivar was seen, personally fully examined, and discussed with ICU team. I have reviewed all pertinent labs, images, and diagnostic studies outlined in the associated note. I agree with the objective findings and with the plan of care as documented with the exceptions noted. Kelvin Zaldivar is critically ill with Active Problems: Neck mass SVC (superior vena cava obstruction) Leukocytosis Hyponatremia Tobacco abuse Carcinoma of unknown origin (HCC) Airway compromise Anxiety Overall Impression: Kelvin Zaldivar is a 42 y.o. 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 Primary cause almost certainly atelectasis 2/2 splinting (pain from PEG) and mucus plugging. After PAP overnight, his FIO2 decreased dramatically and TV's on vent increased suggesting effective recruitment. Will continue abx but plan to wean pending cultures. Cont mucomyst, IPV and increased PEEP for recruitment - could likely wean off vent today or tomorrow. Mr Zaldivar has missed two days of XRT therapy due to inability to lay flat ( severe pain with HOB even decreasing to 20 degrees) +/- dyspnea. They have adjusted positioning to accommodate head up but he then must put arms above head and cannot tolerate this due to pain. Discussed with radiation oncology today. Will plan to dose pain control much more aggressively so he can get therapy today. This is easy to do while on the vent in ICU - will need to think about plan going forward to ensure optimal therapy is received. Re: pain control in general, discussed planning on around the clock percocet with IV fentanyl if needed. Maybe we should transition to Morphine SR. I spent 75 minutes (excluding time spent performing or supervising any procedures) providing and personally directing critical care services including: - systems review and physical examination - review of serial hemodynamic, respiratory, telemetry, laboratory, and imaging data - review of medications - management of fluids/electrolytes, antibiotics, vasopressors, sepsis protocol , gas exchange/mechanical ventilation, ICU prophylaxis, and ICU core measures - organization and coordination of care plan with patient (or surrogate), ICU team and consulting services. - directing the formulation of the overall plan of care outlined above. Kelvin Zaldivar remains at high risk of life threatening deterioration and thereby necessitates complex medical decision making and ongoing provision of ICU level care. Gabrielle Bay MD [phone] * Carl Terry, RN - 02/06/2018 4:55 PM CDT 1600 - Assumed care, pt transported to Rad/Onc per bed, accompanied by this nurse,RT,NA, vented, tolerated well. 1620 - Pt transferred to Rad table, tolerating well. Tx in progress. 1645 - Pt returned to [id number], care assumed by Wilton ARAIZA. * Wilton Isidro, JOSE G - 02/06/2018 12:27 PM CDT 0730 Assumed pt care at this time. Bedside safety check performed, plan of care reviewed. Physical assessment complete, please see ICU flowsheet for details. VSS. Will continue to monitor. 1145 Gave pt 1 mg ativan and 2 5/325 mg percocet tablets to insure patient would be able to lie flat for 20 mins. 1215 Pt was able to lie flat and determined that he thought he could maintain the position for 20 mins. Confirmed with the resource nurse, RT, Dr. Doty, and Dr. Owen that patient was good to go for 1600 appt. Left a message with JOSE G [place] that patient was able to lie flat and would be coming at 1600. 1530 Gave pt 2 percocet tablets (5/325), 1 mg ativan, and 4 mg morphine in preparation for radiation 1600 Reassessed pt. VSS. Prepared pt for travel to radiation. Resource nurse, RT, and tech accompanied patient. 1700 Patient back on floor. Procedure went smoothly. Pt scheduled to be back in radiation at 0815 tomorrow morning. Enteral feeding started at 10 ml/hr, with orders to increase by 10 ml Q6 (next increase at 1100) to a goal of 65. * Yelitza Cook - 02/06/2018 11:19 AM CDT CLINICAL NUTRITION Clinical Nutrition Follow-Up Summary Nutrition Assessment of Patient: Malnutrition Assessment: Malnutrition present Malnutrition Context: ICD-10 code E44: Acute illness/Moderate non-severe malnutrition Current Oral Intake: NPO Estimated Calorie Needs: 0234-2361 (28-32 kcal/kg admit wt of 79.1 kg) Estimated Protein Needs: 95-115 (1.2-1.5 g/kg admit wt) Oral Diet Order: NPO Intake (calories) Daily Average : 1171 kilocalories (Meets 53% of goal) Intake (protein) Daily Average : 56 grams (Meets 59% of goal) Current EN Order: Isosource 1.5 at goal rate of 65ml/hr continuous. 125ml water bolus Q6hr. Provides 2340kcal, 106g protein, and 1692ml free water. 42 yo M with no PMH admit on 01/24 as transfer from OSH after CT showed large neck/chest mass and concern for high risk airway. He is s/p trach on 01/24. Pt rapid responded to MICU early 02/06 for hypoxia. On CPAP assistance via trach. Current TF order Isosource 1.5 at goal rate of 65ml/hr. Pt off TF for half day for port placement and radiation/chemo therapy. Reached goal rate on 02/04 0809. NPO for PEG tube placed 02/05, per RN will start EN again around 9:00pm . Per previous RD, pt reports he is down ~10# from UBW of 185#, thinks he has lost this weight in the past month or so. Previous RD noted mild muscle wasting in temples and interosseous muscle. Pt stated he was able to eat prior to trach placement, but with progressive difficulty. Pt continues to meet criteria for moderate non-severe malnutrition in the context of acute illness as EN infusion has met <75% estimated needs x1 week. Noted trace edema on upper extremities. No noted pressure injuries. Recommendation: Continue EN infusion as ordered. Once at hourly goal rate initiate volume- based protocol: 24hr goal 1560ml, 4hr goal 260ml. If desired to start bolus feeds, patient would need Isosource 1.5 6.5 cartons /day. This will provide 2438kcal, 111g protein, and 1235ml free water. Additional water per team. Intervention / Plan: Monitor EN adequacy, tolerance, and appropriateness, encouraging minimized EN holds and use of volume based protocol to maximize intakes. Monitor wt trends, GI health, labs,and meds Nutrition Diagnosis: Nutrition Diagnosis: Inadequate oral intake Etiology: altered GI function/dysphagia Signs & Symptoms: NPO with need for non oral nutrition support Goals: EN tolerated and meeting >75% of nutritional needs Time Frame: Within 72 Hours Status: Not met;Ongoing Yelitza Cook Human Resource Consultant *[id number] Associated attestation - Karen Salcedo, SHAN - 02/06/2018 1:39 PM CDT Agree with internal communications writer's follow-up assessment/recommendations, however noted team's adjustment to EN order since internal communications writer's visit - will page with recommendation to return to Isosource 1.5 goal rate 65ml/hr. Karen Salcedo, SHAN, LD, [facility] *[phone] * Susu Bee, PT - 02/06/2018 10:54 AM CDT PHYSICAL THERAPY PROGRESS NOTE SUBJECTIVE: Subjective Significant hospital events: Transferred from OSH 01/24/[address] revealing large mass compressing airway, aortic arch and pulmonary artery, pathology revealed adenocarcinoma with unknown primary. S/P tracheostomy, remains high risk airway. G tube placed 02/05/18, post procedure patient with increased O2 requirements and transferred to ICU. PMHx tobacco use Mental / Cognitive Status: Alert;Oriented;Tracheostomy;Ventilator Persons Present: (RN) Pain: Patient complains of pain;8/10 ("when coughing") Pain Location: Abdomen Pain Interventions: Patient agrees to participate in therapy with modifications to session Comments: Ventilator settings: PS/CPAP mode, 40% FiO2, PEEP 5, PS 10, RR 18 Discussed recommendation for abdominal binder with patient, primary team placed order for binder. At end of session patient made a gesture of gun to his head and then smiled. RN at bedside and notified. Patient able to communicate that he isn't feeling well today and it's been difficult but denies that he is truly considering this. 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 ROM: ROM ROM Position Assessed: Supine;Seated ROM Method: Active LE ROM: Bilateral;WFL ROM Comments: Increased edema noted in bilateral UEs this date, elevated on multiple pillows at end of session. STRENGTH: Strength Overall Strength: Generalized Weakness BED MOBILITY/TRANSFERS: Bed Mobility/Transfers Bed Mobility: Supine to Sit: Minimal Assist;Head of Bed Elevated (contact guard) Bed Mobility: Sit to Supine: Minimal Assist;HOB Elevated (remained elevated due to nausea) End Of Activity Status: In Bed;Nursing Notified;Instructed Patient to Request Assist with Mobility;Instructed Patient to Use Call Light (bed alarm activated) ACTIVITY/EXERCISE: Activity / Exercise Sit Edge Of Bed: 1 minutes (approximately, limited by sudden nausea) EDUCATION: Education Persons Educated: Patient Patient Barriers To Learning: Impaired Communication (mouths words, gestures) Teaching Methods: Verbal Instruction;Demonstration Patient Response: Return Demonstration;More Instruction Required Topics: Plan/Goals of PT Interventions;Safety Awareness;Up with Assist Only; Importance of Increasing Activity ASSESSMENT/PROGRESS: Assessment/Progress Impaired Mobility Due To: Decreased Strength;Decreased Activity Tolerance; Deconditioning;Medical Status Limitation Assessment/Progress: Should Improve w/ Continued PT AM-PAC 6 Clicks Basic Mobility Inpatient Turning from your back to your side while in a flat bed without using bed rails : A Little Moving from lying on your back to sitting on the side of a flatbed without using bedrails : A Little Moving to and from a bed to a chair (including a wheelchair): A Lot Standing up from a chair using your arms (e.g. wheelchair, or bedside chair): A Little To walk in hospital room: Total Climbing 3-5 steps with a railing: Total Raw Score: 13 Standardized (T-scale) Score: 33.99 Basic Mobility CMS 0-100%: 57.65 CMS G Code Modifier for Basic Mobility: CK GOALS: Goals Goal Formulation: With Patient Time For Goal Achievement: 7 days Pt Will Go Supine To/From Sit: w/ Stand By Assist (goal modified this date) Pt Will Transfer Sit to Stand: w/ Stand By Assist (goal modified this ) Pt Will Ambulate: Greater than 200 Feet, w/ Stand By Assist, w/ Walker (goal modified this ) Pt Will Go Up / Down Stairs: 1-2 Stairs, w/ Stand By Assist PLAN: Plan Treatment Interventions: Mobility Training;Strengthening;Balance Activities; Endurance Training Plan Frequency: 5 Days per Week RECOMMENDATIONS: PT Discharge Recommendations PT Discharge Recommendations: Inpatient Setting at this time although may progress quickly once out of ICU Recommend ongoing assistance for: In and out of house;Transfers;Bed mobility; Ambulation;Stairs Therapist: Susu Bee, PT, DPT Date: 02/06/2018 * Desi Butt - 02/06/2018 10:34 AM CDT Branch Associate Note: Admit Date: 01/24/2018 Reason for visit; follow up. Branch Associate visit with the patient, asked how was he feeling today. He nodded and thumbs up as (good). The spiritual care team is available as needed, 20/05, through the campus switchboard ([phone]). For immediate response, please page [phone]. For a response within 24 hours, please submit an order in O2 for a drying rack changer consult or call the administrative voicemail at [phone]. Please page or use consult order if patinet requests visit. Branch Associate will continue to follow. Date/Time: User: Pager: [phone] 02/06/2018 10:34 AM Desi Butt PCU 2 PCU * Dulce Gaspar, PHARMD - 02/06/2018 10:08 AM CDT Formatting of this note may be different from the original. Pharmacy Vancomycin Note Subjective: Kelvin Zaldivar is a 42 y.o. male being treated for HCAP. Objective: Current Vancomycin Orders Medication Dose Route Frequency vancomycin (VANCOCIN) 1,250 mg in dextrose 5% (D5W) IVPB 1,250 mg Intravenous Q12H* vancomycin, pharmacy to manage 1 each Service Per Pharmacy Day of Vancomycin therapy: 1 Additional Abx: pip-tazo Cultures: 02/06 trach asp gram stain w/ many mixed bacteria, cx pending 02/06 blood and urine cx pending White Blood Cells Date/Time Value Ref Range Status 02/06/2018 0358 20.9 (H) 4.5 - 11.0 K/UL Final 02/06/2018 0334 19.4 (H) 4.5 - 11.0 K/UL Final 02/06/2018 0220 18.6 (H) 4.5 - 11.0 K/UL Final 02/05/2018 0450 26.7 (H) 4.5 - 11.0 K/UL Final 02/04/2018 0258 25.8 (H) 4.5 - 11.0 K/UL Final Creatinine Date/Time Value Ref Range Status 02/06/2018 0358 1.08 0.4 - 1.24 MG/DL Final 02/06/2018 0334 0.99 0.4 - 1.24 MG/DL Final 02/06/2018 0220 1.00 0.4 - 1.24 MG/DL Final Blood Urea Nitrogen Date/Time Value Ref Range Status 02/06/2018 0358 36 (H) 7 - 25 MG/DL Final Estimated CrCl: ~100 mL/min Actual Weight: 79.6 kg (175 lb 7.8 oz) Assessment: Target levels for this patient: trough ~15 mcg/mL. Plan: 1. Vancomycin 1500 mg x1 dose given today at 0630. Maintenance dose of 1250 mg q12h to begin this evening. 2. Next scheduled level(s): prior to 4th dose, likely 4/14 AM (not ordered yet) 3. Pharmacy will continue to monitor and adjust therapy as needed. Dulce Gaspar, PHARMD 02/06/2018 * Zaida Garcia - 02/06/2018 4:46 AM CDT Shift: Night NEWS Score: 1934- 6 2300- 5 Pain: Pt c/o pain in left abdomen and right chest 03/06. Fentanyl 25 mcg given x1. Nutrition: PEG tube placed 02/05/18, NPO. GI/: LBM: 02/04/18. Pt NPO. Voids adequate amts of urine. Activity: Pt up w/ stand by. Ambulates in room w/ walker. Family: Supportive on phone. Last Shower: 02/05/18 New Events or Follow-up: [employer] called at 0313, pt transferred to ICU (see previous notes) * Carlie Espino, RT - 02/06/2018 4:38 AM CDT Patient brought to ICU by rapid response team for Hypoxia. Trach was exchanged for a for a 6.[address] patient on a ventilator. There were no complications with the exchange. Dr. Bello was present during placement of the new airway and ventilator. * Zaida Garcia - 02/06/2018 4:14 AM CDT Time of Rapid Response: 0313 Reason for RR: Pt's oxygen level desat to 83 w/ trach shield on 15L with 100% oxygen. Pt required increased o2 needs that required transfer to ICU unit. Vital Signs: see doc flow. All vitals WNL besides oxygen saturation NEWS Score: 6 Primary Team contacted: Dr. Goodson Family/DPOA contacted: Britany cleary's whit Orders received: single view chest x-ray, ABGs, 40mg lasix, mucomyst, 62.5 solumedrol Patient transferred: [id number] * Lily Bello MD - 02/06/2018 3:54 AM CDT MICU STAFF NOTE Pt seen, personally fully examined, and discussed with housestaff team on . I have reviewed all pertinent labs, images, and diagnostic studies outlined in the resident's note. I agree with the objective findings and with the plan of care as documented by the resident with the exceptions noted. Mr. Zaldivar is critically ill with acute on chronic hypoxemic respiratory failure in the setting of high grade, poorly-differentiated adenocarcinoma of unknown primary with dominant neck/mediastinal mass compressing trachea/great vessels with SVC syndrome and requiring trach/peg. He is transferred to the ICU following [facility] for progressive hypoxemia and rising O2 requirements with ABG 7.5/ 37/55 on FiO2 100% NRB following new PEG placement and complaints of abdominal pain limiting respiratory mechanics. PMH is significant for aforementioned malignancy of unknown primary, presenting as neck/mediastinal mass with significant compression of mediastinal structures including SVC syndrome, now s/ p trach (01/24/18), PEG (02/05/18), angioplasty of occluded upper SVC/L IJ and brachiocephalic veins (02/03/18), and receiving active chemoXRT (cisplatin/ etoposide); significant anxiety. Exam notable for awake and oriented, anxious- and fatigued-appearing young man, tachypneic with rapid shallow breathing, in no acute distress. Reactive pupils, moist mucous membranes, trach in place with thick secretions, tachycardic heart , diminished breath sounds at bases, no crackles or wheezes, soft abdomen with tenderness at PEG site, PEG in place draining light brown gastric secretions, no peritoneal signs, residual edema to BUE (L>R), no BLE edema, warm skin, grossly neurologically intact. Labs and imaging personally reviewed, notable for stable leukocytosis WBC 18.6, stable anemia Hb 12.2, largely nl electrolytes , serum CO2 >25 (25-31), Cr 1 (baseline 0.7-0.8), nl LFTs, nl lactate 1.4, BNP 153, trop 0.03, ABG 7.50/37/55/29 consistent with respiratory and metabolic alkalosis, hypoxemia. CXR with new loss/obscuration of bilateral diaphragms suggesting BLL atelectasis/infiltrates, R effusion. Overall impression is that of acute on chronic hypoxemic respiratory failure in the setting of high grade, poorly-differentiated adenocarcinoma of unknown primary with dominant neck/mediastinal mass compressing trachea/great vessels with SVC syndrome and requiring trach/peg. Temporal relation of decompensation following PEG placement with post-operative pain and splinting suggests a large component of atelectasis with shunting +/- mucus plugging, and less likely pneumonia (HCAP vs aspiration), volume overload, or progressive malignancy. Our plan is symptomatic treatment of pain and anxiety to reduce splinting and hypoventilation, thereby improving respiratory mechanics; exchange cuff-less trach for cuffed Shiley and place on positive pressure ventilation for PEEP effect to recruit atelectatic alveoli (currently with excellent mechanics on PS 10/8); pulmonary hygiene measures including lavage/suctioning, IPV, and scheduled bronchodilators; broadly culture and begin empiric antibiotics with vanc/zosyn for HCAP given thick secretions, immunosuppression, and clinical decompensation, with rapid de-escalation of antimicrobials guided by culture data; and continue chemoXRT for underlying malignancy. He received lasix and steroids x1 during [facility] [employer]; will hold on further/additional diuresis and systemic steroids pending initial response to above measures. Remainder of plan as documented in resident's note, including general ICU supportive care. I spent 70 minutes (excluding time spent performing or supervising any procedures) providing and personally directing critical care services including : - systems review and physical examination - review of hemodynamic, respiratory, telemetry, laboratory, and imaging data - review of medications - management of fluids/electrolytes, antibiotics, gas exchange/mechanical ventilation, ICU prophylaxis, and ICU core measures - organization and coordination of care plan with nursing staff and residents - directing the formulation of the overall plan of care outlined above Lily Bello [id number] * Miguel Goodson MD - 02/06/2018 3:48 AM CDT Patient reported increased swelling of his upper extremities earlier in the night, venous doppler ordered. Patient Developed increased o2 requirements and SOB later in the night. IVF stopped, iv lasix 40 x1 ordered. cxr showed increased right basilar opacity possible effusion. RT suction and mucomyst nebs ordered, patient has coarse breath sounds and decreased air entry. [employer] was called later due to sao2 in 70's on 15 L o2. ABG done showed PH:7.49,po2 :55, pco2:36. Iv solumedrol 62.5 ordered. ICU fellow evaluated the patient at bedside and patient transferred to ICU. Miguel Goodson MD * Leticia Sood RN - 02/06/2018 12:50 AM CDT I have reviewed the notes, assessment, and/or procedures performed by Zaida Garcia RN and concur with her documentation unless otherwise noted. * Danny Beebe, RT - 02/05/2018 7:52 PM CDT Called to bedside by nursing evaluation of SpO2 below 90%, pt reported ease of breathing and was clear to ausculation. Supplemental oxygen quipment was found to loosely connected to head wall and corrected with increase in patient SpO2 shortly after. O2 concentration was confirmed at 40% via trach mask. Reported back to nurse of developments and will continue to evaluate. * Vadim Johnson MD - 02/05/2018 5:16 PM CDT Formatting of this note may be different from the original. . General Progress Note Name: Kelvin Zaldivar Today's Date: 02/05/2018 Admission Date: 01/24/2018 LOS: 12 days Assessment/Plan: 42 y.o.malewith a PMH of tobaccoism with ~30 pack year hx. About 3w ago developed dysphagia &voice hoarseness; evaluated by ENT in [place] who noted b/l paralyzed vocal cords. CT neck showed large R sided mass. CT c/a/p showed infiltrating mass involving the mediastinum, subcarinal &hilar regions that is narrowing the trachea as well as encompassing the pulm artery & ascending aorta. ENT placed a trach on 01/24 but were unable to completely bypass the area of narrowing. FNA was performed by IR on 01/24 w/ pathology consistent with poorly differentiated carcinoma. Oncology and rad/onc planning treatment. MRI brain 01/22 was normal. Some bleeding around trach site that was managed w/ thrombin spray; since resolved. Underwent radiation simulation 01/31 with three loading doses of radiation and plans to begin chemo next week for ongoing administration with concurrent radiation. Adenocarcinoma of Unknown Primary: - CT N/C/A/P at OSH showed 10.8cm R supraclavicular mass, no discrete thyroid mass,infiltrating mass involving the mediastinum, subcarinal &hilar regions b/l. mass partially encases the ascending aorta & almost completely encases the main pulmonary artery. trachea is also encompassed &is narrowed laterally to 6 mm, small R pleural effusion, sclerotic foci in several upper thoracic vertebral bodies, suspicious for metastatic disease. - MRI brain 01/22 ([facility]) - unremarkable - S/p Bx by IR on 01/24. Pathology showed poorly differentiated carcinoma - S/p simulation with Rad Onc on 01/31. Had 3 out of 10 fractions of XRT so far. - Plan to start chemo tomorrow with Cisplatin/Etopioside q21 daysin concurrence with XRT-- started C1 on 02/03/18 - Oncology following. - IR placed left chest port on 02/03/18 Airway Compromise: - S/p trach placement by ENT on 01/24. Trach leach not pass through the area of compression. - Trach changed to cuffless by ENT on 01/29. TECHNOLOGY ASSISTANT following. Anxiety: -Due to new diagnosis. -Increase ativan to 0.5-1 mg q4h prn-- continue. -Consult Psych for management of severe anxiety-- appreciate input - Called by XRT and he had severe anxiety today so could not tolerate the RT-- will add a dose of ativan/morphine IV to be given daily before he goes for RT Trach SiteBleeding (resolved): - Occurred on 01/26 around trach site, no blood noted w/ suctioning. Managed w/ thrombin spray. Per ENT,if re-bleeds use Afrin soaked 4x4 or thrombin spray. Tobaccoism: - Smokes 1.5ppd x 20 years. Some emphysematous changes on CT. On nicotine patch. 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 On bowel regimen. Hyponatremia (resolved): - resolved now/ Na is normal. Leukocytosis: - Likely r/t neck mass. No sepsis. BC/ NGTD. UA 01/24 bland. Procalcitonin 01/24 was 0.06. Monitoring off abx. FEN: - IVFs overnight while holding TF as he had a G tube placed today. - Replace lytes prn. - TF PPx: - SCDs. Lovenox restarted today Code: - Full code. Dispo: - Transfer care to Onc-Private team-- possible discharge on Saturday to home with assistance Plan was discussed in length with the patient and his family. All questions were answered to theirbest satisfaction. The patient has complex medical problems requiring inpatient interventions, represented by the above problems. I spent more than 35minutes evaluating the patient, formulating plan, reviewing medical chart, directing medication management, reviewing vitals, labs and radiology results. More than 50% of the time was spent in [id number] contact with the patient at bedside. Subjective Laying in bed, has a NGT, able to communicate by writing, had a G tube placed today, no fever/chills/rigors, still feels anxious, no other acute events overnight. Medications Scheduled Meds: enoxaparin (LOVENOX) syringe 40 mg 40 mg Subcutaneous QDAY(21) nicotine (NICODERM CQ STEP 1) 21 mg/day patch 1 patch 1 patch Transdermal QDAY OLANZapine (ZYPREXA) tablet 10 mg 10 mg Per NG tube QDAY ondansetron (ZOFRAN) 16 mg, dexamethasone (DECADRON) 8 mg in sodium chloride 0.9 % (NS) 58.8 mL IVPB Intravenous Q24H* senna/docusate (SENOKOT-S) solution 10 mL 10 mL Per NG tube BID Continuous Infusions: sodium chloride 0.9 % infusion 100 mL/hr at 02/05/18 1128 PRN and Respiratory Meds:albuterol 0.5% Q6H PRN, bisacodyl QDAY PRN, fentaNYL citrate PF Q1H PRN, hydrOXYzine TID PRN, ipratropium bromide Q6H PRN, LORazepam (ATIVAN) injection TID PRN, magnesium sulfate PRN AND Magnesium DAILY AM AND Notify Physician Ongoing, morphine injection syringe QDAY PRN, ondansetron (ZOFRAN) IV Q6H PRN, oxyCODONE/acetaminophen Q4H PRN, pancrelipase 20,000 Units/ sodium bicarbonate 650 mg(#) PRN (Capacitor Assembler from Rx), polyethylene glycol 3350 BID PRN, potassium chloride SR PRN OR potassium chloride PRN, sodium phosphate IVPB PRN (Capacitor Assembler from Rx) AND Phosphorus DAILY AM AND* * Notify Physician Ongoing Objective Vital Signs: Last Filed Vital Signs: 24 Hour Range BP: 142/84 (02/05 1546) Temp: 36.8 C (98.2 F) (02/05 154) Pulse: 98 (02/05 154) Respirations: 18 PER MINUTE (02/05 154) SpO2: 97 % (02/05 154) O2 Delivery: Trach Shield (02/05 1500) SpO2 Pulse: 100 (02/05 0939) BP: (123-165)/(72-102) Temp: [36.3 C (97.3 F)-36.9 C (98.4 F)] Pulse: [93-108] Respirations: [10 PER MINUTE-30 PER MINUTE] SpO2: [85 %-97 %] O2 Delivery: Trach Shield Intensity Pain Scale 0-10 (Pain 1): 6 (02/05/18 1300) Vitals: 02/03/18 0729 02/04/18 0230 02/05/18 0445 Weight: 78.8 kg (173 lb 11.6 oz) 79.7 kg (175 lb 12.8 oz) 82.4 kg (181 lb 10.5 oz) Intake/Output Summary: (Last 24 hours) Intake/Output Summary (Last 24 hours) at 02/05/18 1716 Last data filed at 02/05/18 1700 Gross per 24 hour Intake 1307 ml Output 1625 ml Net -318 ml Stool Occurrence: 1 Physical Exam General: No acute distress, Alert and awake HEENT: no icterus, PERRL, EOMI Neck: supple, no JVD, trachea midline with tracheostomy present Chest: clear to auscultation, no accessory muscle use, left chest port Cardiac: normal S1S2 Abdomen: bowel sounds present, Non tender, no rigidity, G tube attached to bag Extremities: no cyanosis or clubbing Lymphatics: no cervical, axillary or inguinal lymphadenopathy Vascular: pulses intact Psychiatric: normal mood and affect Neurologic: alert, awake and oriented, intact cranial nerves, normal power/tone/ coordination, neck supple. Lab Review 24-hour labs: Results for orders placed or performed during the hospital encounter of (from the past 24 hour(s)) CBC AND DIFF Collection Time: 02/05/18 4:50 AM Result Value Ref Range White Blood Cells 26.7 (H) 4.5 - 11.0 K/UL RBC 4.15 (L) 4.4 - 5.5 M/UL Hemoglobin 12.3 (L) 13.5 - 16.5 GM/DL Hematocrit 37.5 (L) 40 - 50 % MCV 90.4 80 - 100 FL MCH 29.7 26 - 34 PG MCHC 32.8 32.0 - 36.0 G/DL RDW 14.1 11 - 15 % Platelet Count 250 150 - 400 K/UL MPV 7.1 7 - 11 FL Neutrophils 95 (H) 41 - 77 % Lymphocytes 1 (L) 24 - 44 % Monocytes 3 (L) 4 - 12 % Eosinophils 0 0 - 5 % Basophils 1 0 - 2 % Absolute Neutrophil Count 25.60 (H) 1.8 - 7.0 K/UL Absolute Lymph Count 0.30 (L) 1.0 - 4.8 K/UL Absolute Monocyte Count 0.70 0 - 0.80 K/UL Absolute Eosinophil Count 0.00 0 - 0.45 K/UL Absolute Basophil Count 0.10 0 - 0.20 K/UL COMPREHENSIVE METABOLIC PANEL Collection Time: 02/05/18 4:50 AM Result Value Ref Range Sodium 138 137 - 147 MMOL/L Potassium 4.7 3.5 - 5.1 MMOL/L Chloride 104 98 - 110 MMOL/L Glucose 110 (H) 70 - 100 MG/DL Blood Urea Nitrogen 33 (H) 7 - 25 MG/DL Creatinine 0.84 0.4 - 1.24 MG/DL Calcium 9.7 8.5 - 10.6 MG/DL Total Protein 6.7 6.0 - 8.0 G/DL Total Bilirubin 0.5 0.3 - 1.2 MG/DL Albumin 3.1 (L) 3.5 - 5.0 G/DL Alk Phosphatase 117 (H) 25 - 110 U/L AST (SGOT) 22 7 - 40 U/L CO2 27 21 - 30 MMOL/L ALT (SGPT) 27 7 - 56 U/L Anion Gap 7 3 - 12 eGFR Non >60 >60 mL/min eGFR >60 >60 mL/min Point of Care Testing (Last 24 hours) Glucose: (!) 110 (02/05/18 0450) Radiology and other Diagnostics Review: Pertinent radiology reviewed. Vadim Johnson MD Pager * Dora Reyna RN - 02/05/2018 5:10 PM CDT Shift: NEWS: 1100: 3 1546: 3 Pain: abdominal pain. Percocet and Fentanyl administered Nutrition: NPO. Strict until 24 hours post op (0847 02/05) GI/: adequate urine output. Last BM 02/05 Activity: Up w/1, walker Family: none present Last Shower: cant shower for 24 hours New Events or Follow-up: G tube placed today. 50ml water flush due @ 2046. Tube feeds can start on 02/06 at 0847 Per MD Elizabeth, d/c corpak and give fentanyl for pain management. Give morphine prior to radiation. Pt unable to get radiation d/t labored breathing and pain. Gave 2mg IV morphine and 0.5mg ativan prior to leaving. Radiation gave an additional 2mg Morphine and trach suctioning. Pt still labored breathing and sent back to floor. MD Elizabeth notified and stated to give 4mg Morphine and 0.5mg Ativan tomorrow prior to leaving. RN also addressed that pain medicine wasn't giving much relief. Fentanyl increased to 25-50mcg Q1H Next trach care due: 0200 * Andrés Baig - 02/05/2018 4:16 PM CDT Day Shift 0645 - 1700 NEWS: 0800 - Pt. Off unit 1100 - 2 (Supplemental O2) 1546 - 2 (Supplemental O2) Pain: Pt. C/o abdominal pain 02/04. PRN IV Fentanyl managed pain well. Nutrition: NPO GI/: LBM 02/04/18 Activity: Pt. Has been resting in bed all day Family: None present during shift Last Shower: 02/04/18. Pt. Not allowed to have shower for 24 hours after PEG insertion this morning. New Events or Follow-up: -- Pt. Tolerated tracheostomy suction (2 passes) -- Pt. Tolerated tracheostomy care -- PEG tube dressing dry and intact * Dora Reyna, RN - 02/05/2018 2:41 PM CDT CHEMO NOTE Verified chemo consent signed and in chart. Verified initiate chemo order in O2 Blood return positive via: Port (Single, Power Port and Accessed) BSA and dose double checked (agree with orders as written) with: yes Amber Barrett Labs/applicable tests checked: CBC and Comprehensive Metabolic Panel (CMP) Chemo regime: Drug/cycle/day IP/OP LUNG CISPLATIN 80 + ETOPOSIDE 100 (WITH CONCURRENT XRT) Day 3 etoposide (VEPESID) 209 mg in sodium chloride 0.9% (NS) 610.45 mL IVPB : Dose 100 mg/m2 2.09 m2 (Treatment Plan Recorded) : Admin Dose 209 mg : 610.5 mL/hr : Intravenous Rate verified and armband double checkwith second RN: yes Patient education offered and stated understanding. Denies questions at this time. * Keith Weiner, RN - 02/05/2018 9:46 AM CDT Pt left IR recovery via bed with transporters, chart, and O2 to Unit 42. Pt received multiple sets of VS in recovery and is stable to transfer back to home unit. Procedural RN called report to bedside RN to inform of procedure - pt has had increased O2 needs from baseline since procedure. This RN assessed pt, pt denied the need to be suctioned, and pt does not present with s/s of needing suctioning. O2 sat ranged between 89 and 96% during recovery, and O2 ranged from 6-15L. This RN called Unit 42 when pt was leaving recovery to say that pt was currently sating 93% on 10L and that bedside RN may want to monitor O2 sat more frequently for the next few hours/rest of the shift, or consider requesting a continuous pulse oximetry order. Bedside RN will assume care of this pt. * Tracey Connolly - 02/05/2018 9:27 AM CDT Gastrostomy Tube (g-tube) Placement 1. Vital signs q 15 minutes x 4, q 30 minutes x 2, q 1 hour x 4 then may resume prior order. 2. Bedrest: inpatient 2 hours; outpatient 6 [address] IR[address] 3[address] g-tube to gravity drainage bag for 12 hours post procedure. Do not flush during this time. 4. Flush g-tube with 50mls of water 12 hours post procedure. 5. Tube feeding may be started 24 hours after procedure if water is tolerated. 6. Flush g-tube with 50ml of water after each feeding. 7. If patient is NPO, flush g-tube with 30-60mL water twice daily to maintain patency. 8. Remove dressing 24-48 hours after g-tube placement. 9. Wash stoma with water and pat dry q day and PRN. 10. May resume showering after g-tube site dressing has been removed. * Tracey Connolly - 02/05/2018 8:29 AM CDT Sedation physician present in room. Recent vitals and patient condition reviewed between sedating physician and nurse. Reassessment completed. Determination made to proceed with planned sedation. * Zaida Garcia - 02/05/2018 6:02 AM CDT Shift: Night NEWS Score: 2002- 3 2241- 4 0445- 5 Pain: 2010 Pt c/o right shoulder pain 4/10; No intervention desired. 0537 c/o right shoulder pain 5/10; 2 tabs of percocet given. Nutrition: Enteral feeds (Isosource 1.5) until 0000 then NPO for PEG tube placement in morning. GI/: LBM: 02/04/18, brown, loose medium stool. Activity: Pt up w/ stand by. Ambulates in room. Family: Present at bedside. Last Shower: 02/04/18 New Events or Follow-up: --Pt still having anxiety, PRN ativan x1 given with relief. --Next trach care due at 0815. --No replacements needed this am * Leticia Sood, RN - 02/05/2018 1:12 AM CDT I have reviewed the notes, assessment, and/or procedures performed by Zaida Garcia RN and concur with her documentation unless otherwise noted. * Jessica Mead RN - 02/04/2018 4:23 PM CDT CHEMO NOTE Verified chemo consent signed and in chart. yes Verified initiate chemo order in O2. yes Blood return positive via: Port (Single) left BSA and dose double checked (agree with orders as written) with: yes Aleida Hillman RN Labs/applicable tests checked: CBC and Comprehensive Metabolic Panel (CMP) Chemo regime: Drug/cycle/day C1D2 etoposide (VEPESID) 209 mg in sodium chloride 0.9% (NS) 610.45 mL IVPB : Dose 100 mg/m2 2.09 m2 (Treatment Plan Recorded) : Admin Dose 209 mg : 610.5 mL/hr : Intravenous : ONCE Rate verified and armband double checkwith second RN: yes Patient education offered and stated understanding. Denies questions at this time. * Vadim Johnson MD - 02/04/2018 3:30 PM CDT Formatting of this note may be different from the original. . General Progress Note Name: Kelvin Zaldivar Today's Date: 02/04/2018 Admission Date: 01/24/2018 LOS: 11 days Assessment/Plan: 42 y.o.malewith a PMH of tobaccoism with ~30 pack year hx. About 3w ago developed dysphagia &voice hoarseness; evaluated by ENT in [place] who noted b/l paralyzed vocal cords. CT neck showed large R sided mass. CT c/a/p showed infiltrating mass involving the mediastinum, subcarinal &hilar regions that is narrowing the trachea as well as encompassing the pulm artery & ascending aorta. ENT placed a trach on 01/24 but were unable to completely bypass the area of narrowing. FNA was performed by IR on 01/24 w/ pathology consistent with poorly differentiated carcinoma. Oncology and rad/onc planning treatment. MRI brain 01/22 was normal. Some bleeding around trach site that was managed w/ thrombin spray; since resolved. Underwent radiation simulation 01/31 with three loading doses of radiation and plans to begin chemo next week for ongoing administration with concurrent radiation. Adenocarcinoma of Unknown Primary: - CT N/C/A/P at OSH showed 10.8cm R supraclavicular mass, no discrete thyroid mass,infiltrating mass involving the mediastinum, subcarinal &hilar regions b/l. mass partially encases the ascending aorta & almost completely encases the main pulmonary artery. trachea is also encompassed &is narrowed laterally to 6 mm, small R pleural effusion, sclerotic foci in several upper thoracic vertebral bodies, suspicious for metastatic disease. - MRI brain 01/22 ([facility]) - unremarkable - S/p Bx by IR on 01/24. Pathology showed poorly differentiated carcinoma - S/p simulation with Rad Onc on 01/31. Had 3 out of 10 fractions of XRT so far. - Plan to start chemo tomorrow with Cisplatin/Etopioside q21 daysin concurrence with XRT-- started C1 on 02/03/18 - Oncology following. - IR placed left chest port on 02/03/18 Airway Compromise: - S/p trach placement by ENT on 01/24. Trach leach not pass through the area of compression. - Trach changed to cuffless by ENT on 01/29. TECHNOLOGY ASSISTANT following. Anxiety: -Due to new diagnosis. - Increase ativan to 0.5-1 mg q4h prn-- continue. - Consult Psych for management of severe anxiety-- appreciate input - Called by XRT and he had severe anxiety today so could not tolerate the RT-- will add a dose of ativan/morphine IV to be given daily before he goes for RT Trach SiteBleeding (resolved): - Occurred on 01/26 around trach site, no blood noted w/ suctioning. Managed w/ thrombin spray. Per ENT,if re-bleeds use Afrin soaked 4x4 or thrombin spray. Tobaccoism: - Smokes 1.5ppd x 20 years. Some emphysematous changes on CT. On nicotine patch. Smoking cessation counseling High Risk Aspiration: - Has corpak + TFs-- discussed need for G tube placement as he will need to have shelter reliable enteral nutrition till chemo/RT can starting working and he will let me know by tomorrow-- discussed in detail again today and he agreeable to have a G tube placed, consulted IR and hold lovenox/TF after midnight - Last BM 02/02. On bowel regimen. Hyponatremia (resolved): - resolved now/ Na is normal. Leukocytosis: - Likely r/t neck mass. No sepsis. BCx3/30 NGTD. UA 01/24 bland. Procalcitonin 01/24 was 0.06. Monitoring off abx. FEN: - No IVFs. - Replace lytes prn. - TF PPx: - SCDs. Lovenox. Code: - Full code. Dispo: - Transfer care to Onc-Private team. Plan was discussed in length with the patient and his family. All questions were answered to theirbest satisfaction. The patient has complex medical problems requiring inpatient interventions, represented by the above problems. I spent more than 35minutes evaluating the patient, formulating plan, reviewing medical chart, directing medication management, reviewing vitals, labs and radiology results. More than 50% of the time was spent in [id number] contact with the patient at bedside. Subjective Laying in bed, has a NGT, able to communicate by writing, willing to get a G tube placed for enteral nutrition, no fever/chills/rigors, still feels anxious, no other acute events overnight. Medications Scheduled Meds: enoxaparin (LOVENOX) syringe 40 mg 40 mg Subcutaneous QDAY(21) [START ON 02/05/2018] etoposide (VEPESID) 209 mg in sodium chloride 0.9% (NS) 610.45 mL IVPB 100 mg/m2 (Treatment Plan Recorded) Intravenous ONCE etoposide (VEPESID) 209 mg in sodium chloride 0.9% (NS) 610.45 mL IVPB 100 mg/ m2 (Treatment Plan Recorded) Intravenous ONCE nicotine (NICODERM CQ STEP 1) 21 mg/day patch 1 patch 1 patch Transdermal QDAY OLANZapine (ZYPREXA) tablet 10 mg 10 mg Per NG tube QDAY ondansetron (ZOFRAN) 16 mg, dexamethasone (DECADRON) 8 mg in sodium chloride 0.9 % (NS) 58.8 mL IVPB Intravenous Q24H* senna/docusate (SENOKOT-S) solution 10 mL 10 mL Per NG tube BID Continuous Infusions: PRN and Respiratory Meds:albuterol 0.5% Q6H PRN, bisacodyl QDAY PRN, fentaNYL citrate PF Q3H PRN, hydrOXYzine TID PRN, ipratropium bromide Q6H PRN, LORazepam (ATIVAN) injection BID PRN, magnesium sulfate PRN AND Magnesium DAILY AM AND Notify Physician Ongoing, morphine injection syringe QDAY PRN, ondansetron (ZOFRAN) IV Q6H PRN, oxyCODONE/acetaminophen Q4H PRN, pancrelipase 20,000 Units/ sodium bicarbonate 650 mg(#) PRN (Capacitor Assembler from Rx), polyethylene glycol 3350 BID PRN, potassium chloride SR PRN OR potassium chloride PRN, sodium phosphate IVPB PRN (Capacitor Assembler from Rx) AND Phosphorus DAILY AM AND* * Notify Physician Ongoing Objective Vital Signs: Last Filed Vital Signs: 24 Hour Range BP: 124/82 (02/04 1122) Temp: 36.4 C (97.5 F) (02/04 1122) Pulse: 100 (02/04 1122) Respirations: 16 PER MINUTE (02/04 1300) SpO2: 95 % (02/04 1300) O2 Delivery: Trach Shield (02/04 1300) BP: (114-133)/(66-82) Temp: [36.2 C (97.2 F)-37.1 C (98.7 F)] Pulse: [87-100] Respirations: [16 PER MINUTE-18 PER MINUTE] SpO2: [93 %-97 %] O2 Delivery: Trach Shield Intensity Pain Scale 0-10 (Pain 1): 5 (02/04/18 1425) Vitals: 02/02/18 0356 02/03/18 0729 02/04/18 0230 Weight: 78.8 kg (173 lb 12.8 oz) 78.8 kg (173 lb 11.6 oz) 79.7 kg (175 lb 12.8 oz) Intake/Output Summary: (Last 24 hours) Intake/Output Summary (Last 24 hours) at 02/04/18 1531 Last data filed at 02/04/18 0700 Gross per 24 hour Intake 1005 ml Output 1350 ml Net -345 ml Stool Occurrence: 1 Physical Exam General: No acute distress, Alert and awake HEENT: no icterus, PERRL, EOMI Neck: supple, no JVD, trachea midline with tracheostomy present Chest: clear to auscultation, no accessory muscle use, left chest port Cardiac: normal S1S2 Abdomen: bowel sounds present, Non tender, no rigidity, Extremities: no cyanosis or clubbing Lymphatics: no cervical, axillary or inguinal lymphadenopathy Vascular: pulses intact Psychiatric: normal mood and affect Neurologic: alert, awake and oriented, intact cranial nerves, normal power/tone/ coordination, neck supple. Lab Review 24-hour labs: Results for orders placed or performed during the hospital encounter of (from the past 24 hour(s)) CBC AND DIFF Collection Time: 02/04/18 2:58 AM Result Value Ref Range White Blood Cells 25.8 (H) 4.5 - 11.0 K/UL RBC 4.05 (L) 4.4 - 5.5 M/UL Hemoglobin 12.1 (L) 13.5 - 16.5 GM/DL Hematocrit 37.1 (L) 40 - 50 % MCV 91.6 80 - 100 FL MCH 30.0 26 - 34 PG MCHC 32.7 32.0 - 36.0 G/DL RDW 14.5 11 - 15 % Platelet Count 243 150 - 400 K/UL MPV 6.9 (L) 7 - 11 FL Neutrophils 97 (H) 41 - 77 % Lymphocytes 1 (L) 24 - 44 % Monocytes 2 (L) 4 - 12 % Eosinophils 0 0 - 5 % Basophils 0 0 - 2 % Absolute Neutrophil Count 24.90 (H) 1.8 - 7.0 K/UL Absolute Lymph Count 0.30 (L) 1.0 - 4.8 K/UL Absolute Monocyte Count 0.60 0 - 0.80 K/UL Absolute Eosinophil Count 0.00 0 - 0.45 K/UL Absolute Basophil Count 0.00 0 - 0.20 K/UL COMPREHENSIVE METABOLIC PANEL Collection Time: 02/04/18 2:58 AM Result Value Ref Range Sodium 137 137 - 147 MMOL/L Potassium 4.5 3.5 - 5.1 MMOL/L Chloride 106 98 - 110 MMOL/L Glucose 129 (H) 70 - 100 MG/DL Blood Urea Nitrogen 27 (H) 7 - 25 MG/DL Creatinine 0.73 0.4 - 1.24 MG/DL Calcium 9.2 8.5 - 10.6 MG/DL Total Protein 6.5 6.0 - 8.0 G/DL Total Bilirubin 0.5 0.3 - 1.2 MG/DL Albumin 2.9 (L) 3.5 - 5.0 G/DL Alk Phosphatase 116 (H) 25 - 110 U/L AST (SGOT) 32 7 - 40 U/L CO2 25 21 - 30 MMOL/L ALT (SGPT) 32 7 - 56 U/L Anion Gap 6 3 - 12 eGFR Non >60 >60 mL/min eGFR >60 >60 mL/min Point of Care Testing (Last 24 hours) Glucose: (!) 129 (02/04/18 6198) Radiology and other Diagnostics Review: Pertinent radiology reviewed. Vadim Johnson MD Pager * Clement Donohue MD - 02/04/2018 2:20 PM CDT Formatting of this note may be different from the original. Psychiatric Consultation Progress Note LOS: 11 days Current Psychotropic Meds: Ativan .5mg BID PRN Hydroxyzine 25mg TID PRN Zyprexa 10mg QHS Psychiatric Assessment: 1. Adjustment reaction with anxious distress Recommendations: Patient feels that Ativan is helpful; it would be alright to increase the dosing of Ativan to .5mg TID PRN for anxiety. Please continue to monitor respiratory status. Please use Hydroxyzine 25mg TID PRN for anxiety and see how patient responds. Olanzapine 10mg QHS to be given for N/V associated with chemotherapy may also be helpful for anxiety symptoms Patient still does not want scheduled antidepressant or to meet with psychology team at this time. Seen and discussed with: Dr. Craven Please feel free to contact us with any additional questions or concerns by paging the consult team between 8am and 5pm on weekdays and between 8am and 3pm on weekends at [phone]. Otherwise, page the vice president medical affairs insurance verification specialist. Subjective: Kelvin Zaldivar was seen today with fiance and daughter present in the room. He has tracheostomy and cannot talk so spoke with writing and gestures. Expresses that he has high anxiety related to symptoms of SOA. Denies SI/HI/AVH. Denies all psychiatric history prior to about 2 weeks ago and cancer diagnosis. Does think that ativan is helpful for anxiety. Not interested in scheduled antidepressant or anxiolytic. 14 point ROS negative except Psych: anxiety Resp: SOA MSK: back discomfort Objective: Vital Signs: Current Vital Signs: 24 Hour Range BP: 124/82 (02/04 1122) Temp: 36.4 C (97.5 F) (02/04 112) Pulse: 100 (02/04 112) Respirations: 16 PER MINUTE (02/04 1300) SpO2: 95 % (02/04 1300) O2 Delivery: Trach Shield (02/04 1300) BP: (114-133)/(66-82) Temp: [36.2 C (97.2 F)-37.1 C (98.7 F)] Pulse: [87-100] Respirations: [16 PER MINUTE-18 PER MINUTE] SpO2: [93 %-97 %] O2 Delivery: Trach Shield Intensity Pain Scale 0-10 (Pain 1): (not recorded) Scheduled Medications: enoxaparin (LOVENOX) syringe 40 mg 40 mg Subcutaneous QDAY(21) [START ON 02/05/2018] etoposide (VEPESID) 209 mg in sodium chloride 0.9% (NS) 610.45 mL IVPB 100 mg/m2 (Treatment Plan Recorded) Intravenous ONCE etoposide (VEPESID) 209 mg in sodium chloride 0.9% (NS) 610.45 mL IVPB 100 mg/ m2 (Treatment Plan Recorded) Intravenous ONCE nicotine (NICODERM CQ STEP 1) 21 mg/day patch 1 patch 1 patch Transdermal QDAY OLANZapine (ZYPREXA) tablet 10 mg 10 mg Per NG tube QDAY ondansetron (ZOFRAN) 16 mg, dexamethasone (DECADRON) 8 mg in sodium chloride 0.9 % (NS) 58.8 mL IVPB Intravenous Q24H* senna/docusate (SENOKOT-S) solution 10 mL 10 mL Per NG tube BID PRN Medications: albuterol 0.5% Q6H PRN 2.5 mg at 01/28/182028, bisacodyl QDAY PRN, fentaNYL citrate PF Q3H PRN 25 mcg at 02/04/18 1209, hydrOXYzine TID PRN, ipratropium bromide Q6H PRN 0.5 mg at 01/28/182028, LORazepam (ATIVAN) injection BID PRN 0.5 mg at 02/03/18 2216, magnesium sulfate PRN 1 g at 01/30/18 0719 AND Magnesium DAILY AM AND Notify Physician Ongoing, ondansetron (ZOFRAN) IV Q6H PRN 4 mg at 01/27/18 1047, oxyCODONE/acetaminophen Q4H PRN 2 tablet at 02/04 0751, pancrelipase 20,000 Units/ sodium bicarbonate 650 mg(#) PRN (Capacitor Assembler from Rx), polyethylene glycol 3350 BID PRN, potassium chloride SR PRN OR potassium chloride PRN 40 mEq at 01/26/18 1143, sodium phosphate IVPB PRN (Capacitor Assembler from Rx) AND Phosphorus DAILY AM AND Notify Physician Ongoing Mental Status Exam: General/Constitutional: 42 yo CM with tracheostomy and NG tube in place, in some distress Speech/Motor: unable to speak vocally; uses writing; no PMR noted Mood/Affect: "anxious"/ restricted, sad Thought Process: linear Associations: appears intact Thought Content: denies SI/HI Perception: denies AVH Insight/Judgment: fair/ fair Orientation: grossly oriented Recent and Remote Memory: appears normal Attention span and concentration: fair Language: Indonesian, fluent Fund of knowledge and vocabulary: appropriate for education Focused Physical Exam: Musculoskeletal: moves all 4 extremities Neuro: gait not observed Clement Donohue MD Associated attestation - Karen Craven DO - 02/04/2018 2:37 PM CDT Formatting of this note may be different from the original. ATTESTATION I personally performed the torres portions of the E/M visit, discussed the case with the resident and concur with resident documentation of history, physical exam, assessment, and treatment plan unless otherwise noted. I personally participated in development of the plan of care. Patient notes ativan helpful however appears to wear off quickly. He desires to continue with PRN regimens at this time, declines psychology consultation for discussion of coping/breathing techniques. Please feel free to contact us with any additional questions or concerns by paging the consult team between 8am and 5pm on weekdays and between 8am and 3pm on weekends [phone]. Otherwise, page the vice president medical affairs insurance verification specialist. Staff name: Karen Craven, Date: 02/04/2018 * Stewart Webb, PT - 02/04/2018 9:45 AM CDT PHYSICAL THERAPY PROGRESS NOTE MOBILITY: Mobility Progressive Mobility Level: Walk in hallway Distance Walked (feet): 175 ft Level of Assistance: Stand by assistance Assistive Device: Walker Time Tolerated: 11-30 minutes Activity Limited By: Fatigue SUBJECTIVE: Subjective Significant hospital events: PMHx tobacco use. Transferred from OSH 01/24/[address] revealing large mass compressing airway, aortic arch and pulmonary artery. S/P tracheostomy 01/24, remains high risk airway. Mental / Cognitive Status: Alert;Oriented;Cooperative Persons Present: Student Pain: Patient does not rate pain Pain Location: Neck Pain Interventions: Patient agrees to participate in therapy Comments: Patient resting in bed, able to mouth words or uses piece of paper to communicate. Ambulation Assist: Independent Mobility in Community without Device Patient Owned Equipment: None Home Situation: Lives with Family Type of Home: House Entry Stairs: 1-2 Stairs In-Home Stairs: No Stairs BED MOBILITY/TRANSFERS: Bed Mobility/Transfers Bed Mobility: Supine to Sit: Modified Independent;Head of Bed Elevated Bed Mobility: Sit to Supine: Modified Independent;HOB Elevated Transfer Type: Sit to/from Stand Transfer: Assistance Level: To/From;Bed;Standby Assist Transfer: Assistive Device: Roller Walker Transfers: Type Of Assistance: Verbal Cues;For Safety Considerations End Of Activity Status: In Bed;Instructed Patient to Use Call Light GAIT: Gait Gait Distance: 175 feet Gait: Assistance Level: Standby Assist;Management of Lines Gait: Assistive Device: Roller Walker Gait: Descriptors: Pace: Slow;Swing-Through Gait;No balance loss ASSESSMENT/PROGRESS: Assessment/Progress Impaired Mobility Due To: Decreased Activity Tolerance;Medical Status Limitation Assessment/Progress: Expect Good Progress Comments: Patient functionally is doing pretty well and tolerated ambulation well today. Patient with no anxiety attacks today and seems confident in increasing activity moving forward. Patient is going to continue to benefit from acute therapy to improve general endurance and strength for safe home discharge. AM-PAC 6 Clicks Basic Mobility Inpatient Turning from your back to your side while in a flat bed without using bed rails : None Moving from lying on your back to sitting on the side of a flatbed without using bedrails : None Moving to and from a bed to a chair (including a wheelchair): None Standing up from a chair using your arms (e.g. wheelchair, or bedside chair): None To walk in hospital room: None Climbing 3-5 steps with a railing: A Little Raw Score: 23 Standardized (T-scale) Score: 50.88 Basic Mobility CMS 0-100%: 16.55 CMS G Code Modifier for Basic Mobility: CI GOALS: Goals Goal Formulation: With Patient Time For Goal Achievement: 7 days Pt Will Go Supine To/From Sit: Independently Pt Will Transfer Sit to Stand: Independently Pt Will Ambulate: Greater than 200 Feet, w/ No Device, w/ Stand By Assist Pt Will Go Up / Down Stairs: 1-2 Stairs, w/ Stand By Assist PLAN: Plan Treatment Interventions: Mobility Training;Strengthening;Balance Activities; Endurance Training Plan Frequency: 5 Days per Week Comments: Continue to work on ambulation endurance, wean from walker when able, work on stairs for home entry. RECOMMENDATIONS: PT Discharge Recommendations PT Discharge Recommendations: Home with Assistance Equipment Recommendations: Too early to be determined Comments: Hoping to be able to wean from walker soon. Therapist: Stewart Webb DPT Date: 02/04/2018 * Winsome Guido APRN - 02/04/2018 7:25 AM CDT Formatting of this note may be different from the original. Oncology Consult Progress Note Name: Kelvin Zaldivar Today's Date: 02/04/2018 Admission Date: 01/24/2018 LOS: 11 days Assessment/Plan: Active Problems: Neck mass SVC (superior vena cava obstruction) Leukocytosis Hyponatremia Tobacco abuse Carcinoma of unknown origin (HCC) Airway compromise Anxiety High Grade Carcinoma - Diff dx including lymphoma, germ cell, thyroid malignancy - Presented with hoarse/scratchy throat, dysphonia, noted a palpable right lower neck mass, progressive dyspnea - OSH CT chest- 10.8 cm mass extending from neck to chest, compressing airway involving his aortic arch, encompassing his aorta and pulmonary artery - ENT, CTS, Rad onc consulted - Current tobacco use- 1.5 pack/day 20 + years - LDH elevated at 367, Beta HCG (wnl) 1, AFP (wnl) 2 - Testicular exam w/o mass - 01/24/18: Bronchoscopy, tracheostomy - 01/14/18: IR core biopsy of right supraclavicular mass - Flow cytometry negative for evidence of lymphoma - Pathology: 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 Awaiting additional staining - Adipose tissue, "right neck mass", biopsy: Poorly differentiated malignant neoplasm with necrosis, most compatible with high grade carcinoma, PDL1 20% positive OSH Imaging: - CT neck: right supraclavicular mass (10.8 cm) no discrete thyroid mass - CT neck- infiltrative soft tissue mass, extends to right supraclavicular region, involving mediastinal subcarinal, hilar regions, trachea narrowed - MRI Donald- negative for evidence of mass [facility] Radiology Review (per verbal report) - Diffuse right neck adenopathy, with significant trachea narrowing, diffuse lower neck adenopathy, separate from thyroid (no discrete thyroid mass seen) - Hilar, mediastinal small right pleural effusion, liver lesions too small to characterized, enlarged retroperitoneal lymph nodes Plan - Continuing Cycle 1, Day 2 Etoposide, labs reviewed, will continue to monitor - Radiation therapy continuing - Ongoing anxiety, with only short acting relief with PRN Ativan. Psychiatry following Patient discussed with Dr. Yeboah Subjective Kelvin Zaldivar is a 42 y.o. male. No acute events overnight. Patient reports ongoing, episodes of anxiety- that happen after procedures or when he has been up out of bed. Reports Ativan has helped, but does not provide lasting relief. Denies any current pain, no nausea, vomiting, chest pain or trouble breathing. Medications Scheduled Meds: enoxaparin (LOVENOX) syringe 40 mg 40 mg Subcutaneous QDAY(21) etoposide (VEPESID) 209 mg in sodium chloride 0.9% (NS) 610.45 mL IVPB 100 mg/ m2 (Treatment Plan Recorded) Intravenous ONCE nicotine (NICODERM CQ STEP 1) 21 mg/day patch 1 patch 1 patch Transdermal QDAY OLANZapine (ZYPREXA) tablet 10 mg 10 mg Per NG tube QDAY ondansetron (ZOFRAN) 16 mg, dexamethasone (DECADRON) 8 mg in sodium chloride 0.9 % (NS) 58.8 mL IVPB Intravenous Q24H* senna/docusate (SENOKOT-S) solution 10 mL 10 mL Per NG tube BID Continuous Infusions: PRN and Respiratory Meds:albuterol 0.5% Q6H PRN, bisacodyl QDAY PRN, fentaNYL citrate PF Q3H PRN, hydrOXYzine TID PRN, ipratropium bromide Q6H PRN, LORazepam (ATIVAN) injection BID PRN, magnesium sulfate PRN AND Magnesium DAILY AM AND Notify Physician Ongoing, ondansetron (ZOFRAN) IV Q6H PRN, oxyCODONE/ acetaminophen Q4H PRN, pancrelipase 20,000 Units/ sodium bicarbonate 650 mg(#) PRN (Capacitor Assembler from Rx), polyethylene glycol 3350 BID PRN, potassium chloride SR PRN OR potassium chloride PRN, sodium phosphate IVPB PRN (Capacitor Assembler from Rx) AND Phosphorus DAILY AM AND Notify Physician Ongoing Objective Vital Signs: Last Filed Vital Signs: 24 Hour Range BP: 120/72 (02/04 230) Temp: 36.2 C (97.2 F) (02/04 230) Pulse: 87 (02/04 230) Respirations: 16 PER MINUTE (02/04 230) SpO2: 95 % (02/04 230) O2 Delivery: Trach Shield (02/04 230) SpO2 Pulse: 104 (02/03 1045) Height: 182.9 cm (72") (02/03 729) BP: (114-165)/(66-101) Temp: [36.2 C (97.2 F)-37.1 C (98.7 F)] Pulse: [87-115] Respirations: [8 PER MINUTE-23 PER MINUTE] SpO2: [91 %-100 %] O2 Delivery: Trach Shield Intensity Pain Scale 0-10 (Pain 1): 4 (02/04/18 0334) Vitals: 02/02/18 0356 02/03/18 0729 02/04/18 0230 Weight: 78.8 kg (173 lb 12.8 oz) 78.8 kg (173 lb 11.6 oz) 79.7 kg (175 lb 12.8 oz) Intake/Output Summary: (Last 24 hours) Intake/Output Summary (Last 24 hours) at 02/04/18 0726 Last data filed at 02/04/18 0700 Gross per 24 hour Intake 1095 ml Output 1650 ml Net -555 ml Stool Occurrence: 1 Review of Systems: A 14 point review of systems was negative except for: Constitutional: positive for fatigue Physical Exam General appearance: Alert, cooperative, no distress Head: Normocephalic, atraumatic Eyes: PERRL Neck: Tracheostomy Lungs: Non-labored, left chest port Heart: regular rate and rhythm Extremities: No edema Neurologic: No focal deficits Lab Review 24-hour labs: Results for orders placed or performed during the hospital encounter of (from the past 24 hour(s)) CBC AND DIFF Collection Time: 02/04/18 2:58 AM Result Value Ref Range White Blood Cells 25.8 (H) 4.5 - 11.0 K/UL RBC 4.05 (L) 4.4 - 5.5 M/UL Hemoglobin 12.1 (L) 13.5 - 16.5 GM/DL Hematocrit 37.1 (L) 40 - 50 % MCV 91.6 80 - 100 FL MCH 30.0 26 - 34 PG MCHC 32.7 32.0 - 36.0 G/DL RDW 14.5 11 - 15 % Platelet Count 243 150 - 400 K/UL MPV 6.9 (L) 7 - 11 FL Neutrophils 97 (H) 41 - 77 % Lymphocytes 1 (L) 24 - 44 % Monocytes 2 (L) 4 - 12 % Eosinophils 0 0 - 5 % Basophils 0 0 - 2 % Absolute Neutrophil Count 24.90 (H) 1.8 - 7.0 K/UL Absolute Lymph Count 0.30 (L) 1.0 - 4.8 K/UL Absolute Monocyte Count 0.60 0 - 0.80 K/UL Absolute Eosinophil Count 0.00 0 - 0.45 K/UL Absolute Basophil Count 0.00 0 - 0.20 K/UL COMPREHENSIVE METABOLIC PANEL Collection Time: 02/04/18 2:58 AM Result Value Ref Range Sodium 137 137 - 147 MMOL/L Potassium 4.5 3.5 - 5.1 MMOL/L Chloride 106 98 - 110 MMOL/L Glucose 129 (H) 70 - 100 MG/DL Blood Urea Nitrogen 27 (H) 7 - 25 MG/DL Creatinine 0.73 0.4 - 1.24 MG/DL Calcium 9.2 8.5 - 10.6 MG/DL Total Protein 6.5 6.0 - 8.0 G/DL Total Bilirubin 0.5 0.3 - 1.2 MG/DL Albumin 2.9 (L) 3.5 - 5.0 G/DL Alk Phosphatase 116 (H) 25 - 110 U/L AST (SGOT) 32 7 - 40 U/L CO2 25 21 - 30 MMOL/L ALT (SGPT) 32 7 - 56 U/L Anion Gap 6 3 - 12 eGFR Non >60 >60 mL/min eGFR >60 >60 mL/min Point of Care Testing (Last 24 hours) Glucose: (!) 129 (02/04/18 0258) Radiology and other Diagnostics Review: Pertinent radiology reviewed. Winsome Guido, PRODUCTION MACHINIST [phone] * Yusuf Hernandez RN - 02/04/2018 7:14 AM CDT Shift: Night NEWS: 1928-3 (4L bled into trach, HR 93) 2227-4 (4L bled into trach, SpO2 95%, HR 100) 0230-3 (4L bled into trach, SpO2 95%) Nutrition: NPO/Enteral nutrition (Isosource 1.5) Rate changes every 6 hours until goal rate of 65 (next rate change 0900 for 5 mL to reach 65 goal rate) q6 hour water bolus at 125 (manually gave water boluses overnight, ordered new pump) Activity: Patient SBA. Did not get up this shift. Pain: c/o right shoulder and rib cage pain, PRN medications given with relief x 2. GI/: Voiding yellow urine with adequate amount. Last BM 02/02, senna given. No c/o N/V. CARDIOPULM: Heart sounds regular. SKIN/MS: Skin c/d/i. Skin around trach slight redness but c/d/i. Family: None present. Last shower/Linen change: 02/03 Follow up: -Patient still having anxiety, PRN ativan given with relief. -Trach care done at 2200 and 0600; suctioned at 2140 and 0305 -No replacements needed this AM * Vadim Johnson MD - 02/03/2018 5:00 PM CDT Formatting of this note may be different from the original. . General Progress Note Name: Kelvin Zaldivar Today's Date: 02/03/2018 Admission Date: 01/24/2018 LOS: 10 days Assessment/Plan: 42 y.o.malewith a PMH of tobaccoism with ~30 pack year hx. About 3w ago developed dysphagia &voice hoarseness; evaluated by ENT in [place] who noted b/l paralyzed vocal cords. CT neck showed large R sided mass. CT c/a/p showed infiltrating mass involving the mediastinum, subcarinal &hilar regions that is narrowing the trachea as well as encompassing the pulm artery & ascending aorta. ENT placed a trach on 01/24 but were unable to completely bypass the area of narrowing. FNA was performed by IR on 01/24 w/ pathology consistent with poorly differentiated carcinoma. Oncology and rad/onc planning treatment. MRI brain 01/22 was normal. Some bleeding around trach site that was managed w/ thrombin spray; since resolved. Underwent radiation simulation 01/31 with three loading doses of radiation and plans to begin chemo next week for ongoing administration with concurrent radiation. Adenocarcinoma of Unknown Primary: - CT N/C/A/P at OSH showed 10.8cm R supraclavicular mass, no discrete thyroid mass, infiltrating mass involving the mediastinum, subcarinal & hilar regions b/ l. mass partially encases the ascending aorta & almost completely encases the main pulmonary artery. trachea is also encompassed & is narrowed laterally to 6 mm, small R pleural effusion, sclerotic foci in several upper thoracic vertebral bodies, suspicious for metastatic disease. - MRI brain 01/22 (OSH) - unremarkable - S/p Bx by IR on 01/24. Pathology showed poorly differentiated carcinoma - S/p simulation with Rad Onc on 01/31. Had 3 out of 10 fractions of XRT so far. - Plan to start chemo tomorrow with Cisplatin/Etopioside q21 days in concurrence with XRT-- C1 on 02/03/18 - Oncology following. - IR placed left chest port on 02/03/18 Airway Compromise: - S/p trach placement by ENT on 01/24. Trach leach not pass through the area of compression. - Trach changed to cuffless by ENT on 01/29. TECHNOLOGY ASSISTANT following. Anxiety: - Due to new diagnosis. - Increase ativan to 0.5-1 mg q4h prn-- continue. - Consult Psych for management of severe anxiety-- appreciate input Trach Site Bleeding (resolved): - Occurred on 01/26 around trach site, no blood noted w/ suctioning. Managed w/ thrombin spray. Per ENT, if re-bleeds use Afrin soaked 4x4 or thrombin spray. Tobaccoism: - Smokes 1.5ppd x 20 years. Some emphysematous changes on CT. On nicotine patch. Smoking cessation counseling High Risk Aspiration: - Has corpak + TFs-- discussed need for G tube placement as he will need to have shelter reliable enteral nutrition till chemo/RT can starting working and he will let me know by tomorrow - Last BM 02/02. On bowel regimen. Hyponatremia (resolved): - resolved now/ Na is normal. Leukocytosis: - Likely r/t neck mass. No sepsis. BCx 01/24 NGTD. UA 01/24 bland. Procalcitonin was 0.06. Monitoring off abx. FEN: - No IVFs. - Replace lytes prn. - TF PPx: - SCDs. Lovenox. Code: - Full code. Dispo: - Transfer care to Onc-Private team. Plan was discussed in length with the patient and his family. All questions were answered to their best satisfaction. The patient has complex medical problems requiring inpatient interventions, represented by the above problems. I spent more than 35 minutes evaluating the patient, formulating plan, reviewing medical chart, directing medication management, reviewing vitals, labs and radiology results. More than 50% of the time was spent in [id number] contact with the patient at bedside. Subjective Laying in bed, has a NGT, able to communicate by writing, had a chest port placed by IR today, no fever/chills/rigors, still feels anxious, no other acute events overnight. Medications Scheduled Meds: enoxaparin (LOVENOX) syringe 40 mg 40 mg Subcutaneous QDAY(21) etoposide (VEPESID) 209 mg in sodium chloride 0.9% (NS) 610.45 mL IVPB 100 mg/ m2 (Treatment Plan Recorded) Intravenous ONCE [START ON 02/04/2018] etoposide (VEPESID) 209 mg in sodium chloride 0.9% (NS) 610.45 mL IVPB 100 mg/m2 (Treatment Plan Recorded) Intravenous ONCE nicotine (NICODERM CQ STEP 1) 21 mg/day patch 1 patch 1 patch Transdermal QDAY OLANZapine (ZYPREXA) tablet 10 mg 10 mg Per NG tube QDAY [START ON 02/04/2018] ondansetron (ZOFRAN) 16 mg, dexamethasone (DECADRON) 8 mg in sodium chloride 0.9% (NS) 58.8 mL IVPB Intravenous Q24H* senna/docusate (SENOKOT-S) solution 10 mL 10 mL Per NG tube BID sodium chloride 0.9% (NS) 1,000 mL with potassium chloride 20 mEq, magnesium sulfate 2 g IV infusion Intravenous ONCE Continuous Infusions: PRN and Respiratory Meds:albuterol 0.5% Q6H PRN, bisacodyl QDAY PRN, fentaNYL citrate PF Q3H PRN, hydrOXYzine TID PRN, ipratropium bromide Q6H PRN, LORazepam (ATIVAN) injection BID PRN, magnesium sulfate PRN AND Magnesium DAILY AM AND Notify Physician Ongoing, ondansetron (ZOFRAN) IV Q6H PRN, oxyCODONE/ acetaminophen Q4H PRN, pancrelipase 20,000 Units/ sodium bicarbonate 650 mg(#) PRN (Capacitor Assembler from Rx), polyethylene glycol 3350 BID PRN, potassium chloride SR PRN OR potassium chloride PRN, sodium phosphate IVPB PRN (Capacitor Assembler from Rx) AND Phosphorus DAILY AM AND Notify Physician Ongoing Objective Vital Signs: Last Filed Vital Signs: 24 Hour Range BP: 130/80 (02/03 1539) Temp: 36.4 C (97.6 F) (02/03 1539) Pulse: 106 (02/03 1336) Respirations: 18 PER MINUTE (02/03 1336) SpO2: 99 % (02/03 1336) O2 Delivery: Trach Shield (02/03 1539) SpO2 Pulse: 104 (02/03 1045) Height: 182.9 cm (72") (02/03 07) BP: (117-165)/(67-101) Temp: [36.4 C (97.6 F)-37.3 C (99.1 F)] Pulse: [95-115] Respirations: [8 PER MINUTE-23 PER MINUTE] SpO2: [91 %-100 %] O2 Delivery: Trach Shield Intensity Pain Scale 0-10 (Pain 1): 5 (02/03/18 1607) Vitals: 01/31/18 0500 02/02/18 0356 02/03/18 0729 Weight: 78.3 kg (172 lb 9.9 oz) 78.8 kg (173 lb 12.8 oz) 78.8 kg (173 lb 11.6 oz ) Intake/Output Summary: (Last 24 hours) Intake/Output Summary (Last 24 hours) at 02/03/18 1700 Last data filed at 02/03/18 1500 Gross per 24 hour Intake 1283 ml Output 975 ml Net 308 ml Stool Occurrence: 1 Physical Exam General: No acute distress, Alert and awake HEENT: no icterus, PERRL, EOMI Neck: supple, no JVD, trachea midline with tracheostomy present Chest: clear to auscultation, no accessory muscle use, left chest port Cardiac: normal S1S2 Abdomen: bowel sounds present, Non tender, no rigidity, Extremities: no cyanosis or clubbing Lymphatics: no cervical, axillary or inguinal lymphadenopathy Vascular: pulses intact Psychiatric: normal mood and affect Neurologic: alert, awake and oriented, intact cranial nerves, normal power/tone/ coordination, neck supple. Lab Review 24-hour labs: Results for orders placed or performed during the hospital encounter of (from the past 24 hour(s)) CBC AND DIFF Collection Time: 02/03/18 6:57 AM Result Value Ref Range White Blood Cells 20.3 (H) 4.5 - 11.0 K/UL RBC 4.40 4.4 - 5.5 M/UL Hemoglobin 13.2 (L) 13.5 - 16.5 GM/DL Hematocrit 39.4 (L) 40 - 50 % MCV 89.5 80 - 100 FL MCH 30.0 26 - 34 PG MCHC 33.6 32.0 - 36.0 G/DL RDW 13.5 11 - 15 % Platelet Count 258 150 - 400 K/UL MPV 7.3 7 - 11 FL Neutrophils 92 (H) 41 - 77 % Lymphocytes 2 (L) 24 - 44 % Monocytes 6 4 - 12 % Eosinophils 0 0 - 5 % Basophils 0 0 - 2 % Absolute Neutrophil Count 18.50 (H) 1.8 - 7.0 K/UL Absolute Lymph Count 0.50 (L) 1.0 - 4.8 K/UL Absolute Monocyte Count 1.20 (H) 0 - 0.80 K/UL Absolute Eosinophil Count 0.10 0 - 0.45 K/UL Absolute Basophil Count 0.10 0 - 0.20 K/UL COMPREHENSIVE METABOLIC PANEL Collection Time: 02/03/18 6:57 AM Result Value Ref Range Sodium 138 137 - 147 MMOL/L Potassium 4.4 3.5 - 5.1 MMOL/L Chloride 101 98 - 110 MMOL/L Glucose 108 (H) 70 - 100 MG/DL Blood Urea Nitrogen 29 (H) 7 - 25 MG/DL Creatinine 0.96 0.4 - 1.24 MG/DL Calcium 9.9 8.5 - 10.6 MG/DL Total Protein 6.9 6.0 - 8.0 G/DL Total Bilirubin 0.6 0.3 - 1.2 MG/DL Albumin 3.5 3.5 - 5.0 G/DL Alk Phosphatase 124 (H) 25 - 110 U/L AST (SGOT) 31 7 - 40 U/L CO2 31 (H) 21 - 30 MMOL/L ALT (SGPT) 31 7 - 56 U/L Anion Gap 6 3 - 12 eGFR Non >60 >60 mL/min eGFR >60 >60 mL/min Point of Care Testing (Last 24 hours) Glucose: (!) 108 (02/03/18 0657) Radiology and other Diagnostics Review: Pertinent radiology reviewed. Vadim Johnson MD Pager * Keily Goddard RN - 02/03/2018 4:33 PM CDT CHEMO NOTE Verified chemo consent signed and in chart. YES Verified initiate chemo order in O2. YES Blood return positive via: Port (Single) Left BSA and dose double checked (agree with orders as written) with: yes Crystal Zamora RN Labs/applicable tests checked: CBC, Basic Metabolic Panel (BMP) and Comprehensive Metabolic Panel (CMP) Chemo regime: Drug/cycle/day Cycle 1 Day 1 etoposide (VEPESID) 209 mg in sodium chloride 0.9% (NS) 610.45 mL IVPB Rate verified and armband double checkwith second RN: yes Patient education offered and stated understanding. Denies questions at this time. YES * Jossy Vargas RD - 02/03/2018 4:00 PM CDT CLINICAL NUTRITION Clinical Nutrition Follow-Up Summary Nutrition Assessment of Patient: Malnutrition Assessment: Malnutrition present Malnutrition Context: ICD-10 code E44: Acute illness/Moderate non-severe malnutrition Current Oral Intake: NPO Estimated Calorie Needs: 1315-0338 (28-32 kcal/kg admit wt of 79.1 kg) Estimated Protein Needs: 95-115 (1.2-1.5 g/kg admit wt) Oral Diet Order: NPO Intake (calories) Daily Average : 1481 kilocalories (67% est needs) Intake (protein) Daily Average : 67 grams (71% est needs) Current EN Order: Isosource 1.5 with goal rate of 65ml/hr with 125ml q6hr to provide 2340kcals, 106g protein, and 1692ml free water at goal. Comment: 42 yo M with no PMH admit on 01/24 as transfer from OSH after CT showed large neck/chest mass and concern for high risk airway. He is now s/p trach, corpak placement (NG) with tip in stomach. Per previous RD, pt reports he is down ~10# from UBW of 185#, thinks he has lost this weight in the past month or so. Previous RD noted mild muscle wating in temples and interosseous muscle. Pt stated he was able to eat prior to trach placement, but with progressive difficulty. Pt continues to meet criteria for moderate non-severe malnutrition in the context of acute illness as EN infusion has met <75% estimated needs x1 week. Pt to remain NPO, discussion of PEG placement is ongoing. Note TECHNOLOGY ASSISTANT d/c'd speaking valve as pt not tolerating likely 2/2 mass below trach. No noted GI distress. Bowel meds onboard. No noted edema or pressure injuries. Recommendation: Continue EN infusion as ordered, Isosource 1.5 with goal 65 ml/hr. Intervention / Plan: Monitor EN adequacy, tolerance, and appropriateness Monitor GI function, wt trends, labs Nutrition Diagnosis: Nutrition Diagnosis: Inadequate oral intake Etiology: altered GI function/dysphagia Signs & Symptoms: NPO with need for non oral nutrition support Goals: EN tolerated and meeting >75% of nutritional needs Time Frame: Within 72 Hours Status: Partially met;Ongoing Jossy Vargas, RD, LD [phone] *[phone] * Stewart Webb, PT - 02/03/2018 3:54 PM CDT PHYSICAL THERAPY NOTE PT attempted to see patient this afternoon. Patient sits himself up to the edge of the bed independently, but then begins to feel short of breath. Patient had had a panic/anxiety attack earlier in the afternoon and felt another coming on. Patient returned to supine position and RN notified. PT will follow up with patient on Saturday to increase activity as able. Therapist: Stewart Webb DPEbony Date: 02/03/2018 * Keily Goddard RN - 02/03/2018 3:25 PM CDT CHEMO NOTE Verified chemo consent signed and in chart. YES Verified initiate chemo order in O2. YES Blood return positive via: Port (Single) Left BSA and dose double checked (agree with orders as written) with: yes Crystal Zamora RN Labs/applicable tests checked: CBC, Basic Metabolic Panel (BMP) and Comprehensive Metabolic Panel (CMP), premeds and pre-hydration administered Chemo regime: Cycle 1 Day 1 CISplatin (PLATINOL) 167.2 mg in sodium chloride 0.9% (NS) 417.2 mL IVPB Rate verified and armband double checkwith second RN: yes Patient education offered and stated understanding. Denies questions at this time. YES * Jada Olson, RN - 02/03/2018 1:27 PM CDT 0730 patient off unit at IR during shift change 1000 patient going from IR straight to Radiation 1245 patient back on unit 1255 patient really anxious at this time. Patient Mouth "I can't breathe". Charge nurse and primary RN at the bedside. Patient SPO2 99% HR 133. Respiratory paged 1300 PRN ativan given 1329 patient calm and resting in bed 1446 Patient feels like he starting to having a panic attack. Nothing available at this time Med Onc paged at this time * Jada Olson, RN - 02/03/2018 10:00 AM CDT 0730 patient off unit at IR during shift change 1000 patient going from IR straight to Radiation * Jaron Bernstein, JOSE G - 02/03/2018 8:37 AM CDT Sedation physician present in room. Recent vitals and patient condition reviewed between sedating physician and nurse. Reassessment completed. Determination made to proceed with planned sedation. * Winsome Guido APRN - 02/03/2018 8:32 AM CDT Formatting of this note may be different from the original. Oncology Consult Progress Note Name: Kelvin Zaldivar Today's Date: 02/03/2018 Admission Date: 01/24/2018 LOS: 10 days Assessment/Plan: Active Problems: Neck mass SVC (superior vena cava obstruction) Leukocytosis Hyponatremia Tobacco abuse Carcinoma of unknown origin (HCC) Airway compromise Anxiety High Grade Carcinoma - Diff dx including lymphoma, germ cell, thyroid malignancy - Presented with hoarse/scratchy throat, dysphonia, noted a palpable right lower neck mass, progressive dyspnea - OSH CT chest- 10.8 cm mass extending from neck to chest, compressing airway involving his aortic arch, encompassing his aorta and pulmonary artery - ENT, CTS, Rad onc consulted - Current tobacco use- 1.5 pack/day 20 + years - LDH elevated at 367, Beta HCG (wnl) 1, AFP (wnl) 2 - Testicular exam w/o mass - 01/24/18: Bronchoscopy, tracheostomy - 01/14/18: IR core biopsy of right supraclavicular mass - Flow cytometry negative for evidence of lymphoma - Pathology: 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 Awaiting additional staining - Adipose tissue, "right neck mass", biopsy: Poorly differentiated malignant neoplasm with necrosis, most compatible with high grade carcinoma, PDL1 20% positive OSH Imaging: - CT neck: right supraclavicular mass (10.8 cm) no discrete thyroid mass - CT neck- infiltrative soft tissue mass, extends to right supraclavicular region, involving mediastinal subcarinal, hilar regions, trachea narrowed - MRI Donald- negative for evidence of mass [facility] Radiology Review (per verbal report) - Diffuse right neck adenopathy, with significant trachea narrowing, diffuse lower neck adenopathy, separate from thyroid (no discrete thyroid mass seen) - Hilar, mediastinal small right pleural effusion, liver lesions too small to characterized, enlarged retroperitoneal lymph nodes Plan - Plan to initiate Cycle 1, Day 1 Cisplatin + Etoposide today. - Chemotherapy consent obtained on 01/31/18, p[patient denies any new questions or concerns, in agreement with proceeding with therapy. Patient seen and discussed with Dr. Yeboah Subjective Kelvin Zaldivar is a 42 y.o. male. No acute events overnight. Reports pain well controlled, denies any breathing difficulties at this time. Currently undergoing radiation, port placement for chemotherapy this morning in IR. Medications Scheduled Meds: enoxaparin (LOVENOX) syringe 40 mg 40 mg Subcutaneous QDAY(21) midazolam (VERSED) injection 0.5-1 mg 0.5-1 mg Intravenous ONCE nicotine (NICODERM CQ STEP 1) 21 mg/day patch 1 patch 1 patch Transdermal QDAY senna/docusate (SENOKOT-S) solution 10 mL 10 mL Per NG tube BID Continuous Infusions: PRN and Respiratory Meds:albuterol 0.5% Q6H PRN, bisacodyl QDAY PRN, fentaNYL citrate PF Q3H PRN, ipratropium bromide Q6H PRN, LORazepam (ATIVAN) injection BID PRN, magnesium sulfate PRN AND Magnesium DAILY AM AND Notify Physician Ongoing, ondansetron (ZOFRAN) IV Q6H PRN, oxyCODONE/acetaminophen Q4H PRN, pancrelipase 20,000 Units/ sodium bicarbonate 650 mg(#) PRN (Capacitor Assembler from Rx), polyethylene glycol 3350 BID PRN, potassium chloride SR PRN OR potassium chloride PRN, sodium phosphate IVPB PRN (Capacitor Assembler from Rx) AND Phosphorus DAILY AM AND Notify Physician Ongoing Objective Vital Signs: Last Filed Vital Signs: 24 Hour Range BP: 125/86 (02/03 830) Temp: 36.9 C (98.4 F) (02/03 729) Pulse: 103 (02/03 830) Respirations: 11 PER MINUTE (02/03 830) SpO2: 93 % (02/03 830) O2 Delivery: None (Room Air) (02/03 729) SpO2 Pulse: 103 (02/03 830) Height: 182.9 cm (72") (02/03 729) BP: (116-165)/(67-90) Temp: [36.5 C (97.7 F)-37.3 C (99.1 F)] Pulse: [95-110] Respirations: [11 PER MINUTE-23 PER MINUTE] SpO2: [91 %-98 %] O2 Delivery: None (Room Air) Intensity Pain Scale 0-10 (Pain 1): 5 (02/03/18 0731) Vitals: 01/31/18 0500 02/02/18 0356 02/03/18 0729 Weight: 78.3 kg (172 lb 9.9 oz) 78.8 kg (173 lb 12.8 oz) 78.8 kg (173 lb 11.6 oz ) Intake/Output Summary: (Last 24 hours) Intake/Output Summary (Last 24 hours) at 02/03/18 0832 Last data filed at 02/03/18 0659 Gross per 24 hour Intake 1438 ml Output 675 ml Net 763 ml Stool Occurrence: 1 Review of Systems: A 14 point review of systems was negative except for: Constitutional: positive for fatigue Physical Exam General appearance: Alert, cooperative, no distress Head: Normocephalic, atraumatic Eyes: PERRL Neck: Tracheostomy Lungs: Non-labored, left chest port Heart: regular rate and rhythm Extremities: No edema Neurologic: No focal deficits Lab Review 24-hour labs: Results for orders placed or performed during the hospital encounter of (from the past 24 hour(s)) CBC AND DIFF Collection Time: 02/03/18 6:57 AM Result Value Ref Range White Blood Cells 20.3 (H) 4.5 - 11.0 K/UL RBC 4.40 4.4 - 5.5 M/UL Hemoglobin 13.2 (L) 13.5 - 16.5 GM/DL Hematocrit 39.4 (L) 40 - 50 % MCV 89.5 80 - 100 FL MCH 30.0 26 - 34 PG MCHC 33.6 32.0 - 36.0 G/DL RDW 13.5 11 - 15 % Platelet Count 258 150 - 400 K/UL MPV 7.3 7 - 11 FL Neutrophils 92 (H) 41 - 77 % Lymphocytes 2 (L) 24 - 44 % Monocytes 6 4 - 12 % Eosinophils 0 0 - 5 % Basophils 0 0 - 2 % Absolute Neutrophil Count 18.50 (H) 1.8 - 7.0 K/UL Absolute Lymph Count 0.50 (L) 1.0 - 4.8 K/UL Absolute Monocyte Count 1.20 (H) 0 - 0.80 K/UL Absolute Eosinophil Count 0.10 0 - 0.45 K/UL Absolute Basophil Count 0.10 0 - 0.20 K/UL COMPREHENSIVE METABOLIC PANEL Collection Time: 02/03/18 6:57 AM Result Value Ref Range Sodium 138 137 - 147 MMOL/L Potassium 4.4 3.5 - 5.1 MMOL/L Chloride 101 98 - 110 MMOL/L Glucose 108 (H) 70 - 100 MG/DL Blood Urea Nitrogen 29 (H) 7 - 25 MG/DL Creatinine 0.96 0.4 - 1.24 MG/DL Calcium 9.9 8.5 - 10.6 MG/DL Total Protein 6.9 6.0 - 8.0 G/DL Total Bilirubin 0.6 0.3 - 1.2 MG/DL Albumin 3.5 3.5 - 5.0 G/DL Alk Phosphatase 124 (H) 25 - 110 U/L AST (SGOT) 31 7 - 40 U/L CO2 31 (H) 21 - 30 MMOL/L ALT (SGPT) 31 7 - 56 U/L Anion Gap 6 3 - 12 eGFR Non >60 >60 mL/min eGFR >60 >60 mL/min Point of Care Testing (Last 24 hours) Glucose: (!) 108 (02/03/18 0657) Radiology and other Diagnostics Review: Pertinent radiology reviewed. Winsome Guido, PRODUCTION MACHINIST [phone] Associated attestation - Caesar Yeboah MD - 02/03/2018 3:53 PM CDT I have reviewed subjective and objective findings with the nurse practitioner and I have personally interviewed and examined the patient. The SOLE STAINER's assessment and plan correspond to my own medical decision making. 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 Day 1 of Cycle 1 of CDDP and BINDER SORTER-16 today. Treatment plan reviewed with patient. Caesar Yeboah * Jaron Bernstein RN - 02/03/2018 7:43 AM CDT Patient given information about the procedure and what to expect during the procedure. Pt verbalizes understanding and any additional questions answered at this time. * Zaida Garcia - 02/03/2018 6:42 AM CDT Shift: Night NEWS Score: 1926- 3 2217- 3 0422- 4 Pain: Pt c/o pain in right shoulder at 1938 and 0112 and rated 5/10 both times. 2 tablets percocet given each time. Nutrition: Enteral nutrition- Isosource 1.5. NPO. Feeds held at midnight d/t port placement in morning. GI/: LBM: 02/02/18. Voids adequately. Urinal at bedside. Activity: Stand by assist. Bed alarm on. Family: Present at bedside. Last Shower: 02/02/18 New Events or Follow-up: --Pt to have port placed 02/03/18 --Next trach care due at 1200 * Leticia Sood, JOSE G - 02/02/2018 10:46 PM CDT I have reviewed the notes, assessment, and/or procedures performed by Zaida Garcia RN and concur with her documentation unless otherwise noted. * Omi Banda MD - 02/02/2018 11:13 AM CDT Formatting of this note may be different from the original. General Progress Note Name: Kelvin Zaldivar Today's Date: 02/02/2018 Admission Date: 01/24/2018 LOS: 9 days Assessment/Plan: Active Problems: Neck mass SVC (superior vena cava obstruction) Leukocytosis Hyponatremia Tobacco abuse Carcinoma of unknown origin (HCC) Airway compromise Anxiety 42 y.o.malewith a PMH of tobaccoism with ~30 pack year hx. About 3w ago developed dysphagia &voice hoarseness; evaluated by ENT in [place] who noted b/l paralyzed vocal cords. CT neck showed large R sided mass. CT c/a/p showed infiltrating mass involving the mediastinum, subcarinal &hilar regions that is narrowing the trachea as well as encompassing the pulm artery & ascending aorta. ENT placed a trach on 01/24 but were unable to completely bypass the area of narrowing. FNA was performed by IR on 01/24 w/ pathology consistent with poorly differentiated carcinoma. Oncology and rad/onc planning treatment. MRI brain 01/22 was normal. Some bleeding around trach site that was managed w/ thrombin spray; since resolved. Underwent radiation simulation 01/31 with three loading doses of radiation and plans to begin chemo next week for ongoing administration with concurrent radiation. Adenocarcinoma of Unknown Primary: - CT N/C/A/P at OSH showed 10.8cm R supraclavicular mass, no discrete thyroid mass, infiltrating mass involving the mediastinum, subcarinal & hilar regions b/ l. mass partially encases the ascending aorta & almost completely encases the main pulmonary artery. trachea is also encompassed & is narrowed laterally to 6 mm, small R pleural effusion, sclerotic foci in several upper thoracic vertebral bodies, suspicious for metastatic disease. - MRI brain 01/22 (OSH) - unremarkable - S/p Bx by IR on 01/24. Pathology showed poorly differentiated carcinoma - S/p simulation with Rad Onc on 01/31. Had 2 out of 10 fractions of XRT so far. - Plan to start chemo tomorrow with Cisplatin/Etopioside q21 days in concurrence with XRT. Oncology following. Airway Compromise: S/p trach placement by ENT on 01/24. Trach leach not pass through the area of compression. Trach changed to cuffless by ENT on 01/29. TECHNOLOGY ASSISTANT following. Anxiety: Due to new diagnosis. Controlled with Ativan. Trach Site Bleeding (resolved): Occurred on 01/26 around trach site, no blood noted w/ suctioning. Managed w/ thrombin spray. Per ENT, if re-bleeds use Afrin soaked 4x4 or thrombin spray. Tobaccoism: Smokes 1.5ppd x 20 years. Some emphysematous changes on CT. On nicotine patch. Smoking cessation counseling High Risk Aspiration: Has corpak + TFs. Last BM 02/02. On bowel regimen. Hyponatremia (resolved): resolved now/ Na is normal. Leukocytosis: Likely r/t neck mass. No sepsis. BCx 01/24 NGTD. UA 01/24 bland. Procalcitonin 01/24 was 0.06. Monitoring off abx. PLAN: - Increase ativan to 0.5-1 mg q4h prn. Consult Psych for management of severe anxiety. - Chemo tomorrow. Will plan on port placement in IR. - Will need a definitive plan for nutrition. Effects from chemo/XRT might not be quick enough and he might need a feeding tube in the interim. This will have to be discussed and evaluated throughout this coming week. - Cont bowel regimen. - Cont humidified O2 as needed. - Monitor WBCs off abx. FEN: - No IVFs. - Replace lytes prn. - NPO with TFs. Hold TFs at [place]. PPx: - SCDs. Lovenox. Code: - Full code. Dispo: - Transfer care to Onc-Private team. Plan was discussed in length with the patient and his family. All questions were answered to their best satisfaction. The patient has complex medical problems requiring inpatient interventions, represented by the above problems. I spent more than 35 minutes evaluating the patient, formulating plan, reviewing medical chart, directing medication management, reviewing vitals, labs and radiology results. More than 50% of the time was spent in [id number] contact with the patient at bedside. Omi Banda MD Medical Oncology Hospitalist [id number] Subjective Patient is very anxious this morning. States: "it feel like I can't get calm". No bleeding or pain from trach site. No other complains. Discussed Port placement and possibility of needing G-tube for feeding. Had a BM today. ROS: No CP, cough, abd pain, N/V, dysuria, hematuria, fevers, chills or night sweats. Medications Scheduled Meds: bisacodyl (DULCOLAX) rectal suppository 10 mg 10 mg Rectal QDAY enoxaparin (LOVENOX) syringe 40 mg 40 mg Subcutaneous QDAY(21) nicotine (NICODERM CQ STEP 1) 21 mg/day patch 1 patch 1 patch Transdermal QDAY polyethylene glycol 3350 (MIRALAX) packet 34 g 2 packet Oral BID senna/docusate (SENOKOT-S) solution 10 mL 10 mL Per NG tube BID Continuous Infusions: PRN and Respiratory Meds:albuterol 0.5% Q6H PRN, fentaNYL citrate PF Q3H PRN, ipratropium bromide Q6H PRN, LORazepam (ATIVAN) injection Q4H PRN, magnesium sulfate PRN AND Magnesium DAILY AM AND Notify Physician Ongoing, ondansetron (ZOFRAN) IV Q6H PRN, oxyCODONE/acetaminophen Q4H PRN, pancrelipase 20,000 Units/ sodium bicarbonate 650 mg(#) PRN (Capacitor Assembler from Rx), potassium chloride SR PRN OR potassium chloride PRN, sodium phosphate IVPB PRN (Capacitor Assembler from Rx) AND Phosphorus DAILY AM AND Notify Physician Ongoing Objective: Vital Signs: Last Filed Vital Signs: 24 Hour Range BP: 129/82 (02/020) Temp: 36.8 C (98.3 F) (02/02 1020) Pulse: 98 (02/02 1020) Respirations: 20 PER MINUTE (02/02 1020) SpO2: 93 % (02/02 1020) O2 Delivery: Trach Shield (02/03 1020) SpO2 Pulse: 108 (02/014) BP: (115-136)/(70-89) Temp: [36.7 C (98.1 F)-36.9 C (98.4 F)] Pulse: [94-100] Respirations: [16 PER MINUTE-24 PER MINUTE] SpO2: [93 %-99 %] O2 Delivery: Trach Shield Intensity Pain Scale 0-10 (Pain 1): 4 (02/02/18 0830) Vitals: 01/30/18 0600 01/31/18 0500 02/02/18 0356 Weight: 78.4 kg (172 lb 13.5 oz) 78.3 kg (172 lb 9.9 oz) 78.8 kg (173 lb 12.8 oz ) Intake/Output Summary: (Last 24 hours) Intake/Output Summary (Last 24 hours) at 02/02/18 1114 Last data filed at 02/02/18 0613 Gross per 24 hour Intake 1866 ml Output 1175 ml Net 691 ml Stool Occurrence: 1 Physical Exam General: Alert, cooperative, anxious Neck: Supple, symmetrical, trach in place. NGT in place. Lungs: Biphasic wheezing, no crackles no rales. Heart: Regular rate and rhythm, S1, S2 normal, no murmur, click rub or gallop Abdomen: Soft, non-tender. Bowel sounds normal. No masses. No organomegaly. Extremities: Extremities normal, atraumatic, no cyanosis or edema Pulses: 2+ and symmetric, all extremities Neurologic: A&O x3, CN II-XII intact, PERRLA, EOMI intact, No focal deficits. Lab Review 24-hour labs: Results for orders placed or performed during the hospital encounter of (from the past 24 hour(s)) CBC AND DIFF Collection Time: 02/02/18 2:46 AM Result Value Ref Range White Blood Cells 18.7 (H) 4.5 - 11.0 K/UL RBC 4.46 4.4 - 5.5 M/UL Hemoglobin 13.3 (L) 13.5 - 16.5 GM/DL Hematocrit 40.3 40 - 50 % MCV 90.4 80 - 100 FL MCH 29.8 26 - 34 PG MCHC 32.9 32.0 - 36.0 G/DL RDW 13.9 11 - 15 % Platelet Count 281 150 - 400 K/UL MPV 7.1 7 - 11 FL Neutrophils 91 (H) 41 - 77 % Lymphocytes 3 (L) 24 - 44 % Monocytes 5 4 - 12 % Eosinophils 1 0 - 5 % Basophils 0 0 - 2 % Absolute Neutrophil Count 17.10 (H) 1.8 - 7.0 K/UL Absolute Lymph Count 0.60 (L) 1.0 - 4.8 K/UL Absolute Monocyte Count 0.90 (H) 0 - 0.80 K/UL Absolute Eosinophil Count 0.10 0 - 0.45 K/UL Absolute Basophil Count 0.00 0 - 0.20 K/UL COMPREHENSIVE METABOLIC PANEL Collection Time: 02/02/18 2:46 AM Result Value Ref Range Sodium 138 137 - 147 MMOL/L Potassium 4.2 3.5 - 5.1 MMOL/L Chloride 102 98 - 110 MMOL/L Glucose 118 (H) 70 - 100 MG/DL Blood Urea Nitrogen 29 (H) 7 - 25 MG/DL Creatinine 0.86 0.4 - 1.24 MG/DL Calcium 9.4 8.5 - 10.6 MG/DL Total Protein 6.8 6.0 - 8.0 G/DL Total Bilirubin 0.4 0.3 - 1.2 MG/DL Albumin 3.3 (L) 3.5 - 5.0 G/DL Alk Phosphatase 114 (H) 25 - 110 U/L AST (SGOT) 26 7 - 40 U/L CO2 27 21 - 30 MMOL/L ALT (SGPT) 24 7 - 56 U/L Anion Gap 9 3 - 12 eGFR Non >60 >60 mL/min eGFR >60 >60 mL/min TROPONIN-I Collection Time: 02/02/18 2:46 AM Result Value Ref Range Troponin-I 0.02 0.0 - 0.05 NG/ML Point of Care Testing (Last 24 hours) Glucose: (!) 118 (02/02/18 0246) Radiology and other Diagnostics Review: Pertinent radiology reviewed. Omi Banda MD Pager [phone] * Tracie Wright, JOSE G - 02/02/2018 10:35 AM CDT ..Shift: day NEWS Score: 0800 5 (HR 98, O2 93%, Supp O2) 1200 4 (HR 99, O2 94%, Supp O2) 1600 3 (HR 102, Supp O2) Pain: yes. pt has right shoulder pain. he reports it as 4/10 on pain scale. 25mcg fentanyl given x1 prior to radiation and 1 tablet percocet given x1. 2 tablets percocet given x1 this shift for pain. Nutrition: enteral nutrition - isosource 1.5 at 65ml/hr. NPO. GI/: voiding adequate amounts of urine without difficulty. x1 BM this shift. no N/V reported. Activity: stand by assist. pt up in room to use bathroom. Family: fiance, daughter, sister, and cousins at bedside this shift. Last Shower: 02/02/18 New Events or Follow-up: pt to have central line placed 02/03/18. pt with high levels of anxiety. IV ativan given x2 this shift due to increased anxiety. * Brent Montes De Oca RN - 02/02/2018 3:50 AM CDT Patient arrived to room 4208 via bed accompanied by RN and family. Patient transferred to the bed with assistance. Bedside safety checks completed. Initial patient assessment completed, refer to flowsheet for details. Oriented patient to room, bed in low position, call light within reach. * Samreen Benton - 02/01/2018 11:48 PM CDT Branch Associate Capacitor Assembler visited patient and provided reading material. The spiritual care team is available as needed, 20/05, through the [facility] switchboard ([phone]). For immediate response, please page [phone]. For a response within 24 hours, please submit an order in O2 for a drying rack changer consult or call the administrative voicemail at [phone]. * Karen Snow RN - 02/01/2018 8:44 PM CDT 1925 Assumed care of patient. Received SBAR from JOSE G Clark. All questions answered. Bedside safety check completed. Patient has no complaints at this time. Updated on plan of care and goals for the shift discussed. Will continue to monitor. 2030 Assessment completed, see doc flowsheet for details. Patient walked around and unit and bath completed. VSS. Patient has some complaints of pain on the right shoulder, will medicate accordingly as ordered. Will continue to monitor. 0230 Patient up to toilet, when patient went back to bed, patient started complaining of SOB and chest pain. Dr. Piña notified, VSS, EKG and troponin done. Will continue to monitor. Ativan and percocet administered. 0300 Patient stated he felt better, will continue to monitor. 0335 Patient transferred to [id number]. SBAR given to JOSE G Kennedy. All questions answered. Patient's family to room with him. Ticket to Ride utilized. Patient safe and stable for transfer. * Amber Gray RN - 02/01/2018 6:40 PM CDT 0730 Bedside safety check completed, care assumed. Plan of care reviewed with patient. Assessments completed per Med/Surg status, VS per trend, see ICU flow sheet. Patient off unit to radiation oncology. After treatment patient reporting a lot of discomfort during radiation. Plan to premedicate with pain med prior to treatment tomorrow. Will continue to monitor closely. * Danny Rodriguez, RT - 02/01/2018 9:23 AM CDT Formatting of this note may be different from the original. RESPIRATORY THERAPY ADULT PROTOCOL EVALUATION RESPIRATORY PROTOCOL PLAN Medications Albuterol/Ipratropium: Neb PRN Note: If indicated by protocol, medication orders will be placed by therapist. Procedures Tracheostomy Suction: Q4h While Awake Oxygen/Humidity: Warm: continuous Monitoring: Discontinued PATIENT EVALUATION RESULTS Chart Review * Pulmonary Hx: Smoking cessation < 8 weeks OR still smoking OR > 20 pack/yr hx (PEFR) OR occasional use of bronchodilator (AM) * Surgical Hx: General surgery (cough & sigh not affected) * Chest X-Ray: Clear OR not available * PFT/Oxygenation: FEV1, PEFR > 80% predicted OR physically unable to perform OR Pa02 >80 RA OR Sp02 >95% RA Patient Assessment * Respiratory Pattern: Regular pattern and rate OR good chest excursion with deep breathing * Breath Sounds: Clear and able to auscultate bases posteriorly * Cough / Sputum: Strong, effective cough OR nonproductive * Mental Status: Alert, oriented, cooperative * Activity Level: Ambulatory with assistance Priority Index Total Points: 4 Points * Priority Index: 1 PRIORITY INDEX GUIDELINES* Priority Points 1 0-9 points 2 9-18 points 3 > 18 points + Pulm Dx or Home Rx *Higher points indicate higher acuity. Therapist: Danny Rodriguez, RT Date: 02/01/2018 Torres AC=Airway clearance AM=Aerosolized medication BA=Jet aerosol DB&C=Deep breathe & cough FEV1=Forced expiratory volume in first second) IC=Inspiratory capacity LE=Lung expansion MDI=Metered dose inhaler Neb=Nebulizer O2=Oxygen Oxim=Oximetry PEFR=Peak expiratory flow rate [employer]=Rapid Response Team * Latisha Solano, PRODUCTION MACHINIST - 02/01/2018 7:05 AM CDT Formatting of this note may be different from the original. Critical Care Progress Note Kelvin Zaldivra Today's Date: 02/01/2018 Admission Date: 01/24/2018 LOS: 8 days Active Problems: Neck mass SVC (superior vena cava obstruction) Leukocytosis Hyponatremia Tobacco abuse Diagnosis unknown Carcinoma of unknown primary (HCC) Hospital Course: 42 y.o. male with a PMH of tobaccoism with ~30 pack year hx. About 3w ago developed dysphagia & voice hoarseness; evaluated by ENT in [place] who noted b/l paralyzed vocal cords. CT neck showed large R sided mass. CT c/a/p showed infiltrating mass involving the mediastinum, subcarinal & hilar regions that is narrowing the trachea as well as encompassing the pulm artery & ascending aorta. ENT placed a trach on 01/24 but were unable to completely bypass the area of narrowing. FNA was performed by IR on 01/24 w/ pathology consistent with poorly differentiated carcinoma. Oncology and rad/onc planning treatment. MRI brain 01/22 was normal. Some bleeding around trach site that was managed w/ thrombin spray; since resolved. Underwent radiation simulation 01/31 with three loading doses of radiation and plans to begin chemo next week for ongoing administration with concurrent radiation. 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 Mass partially encases the ascending aorta & almost completely encases the main pulmonary artery. The trachea is also encompassed & is narrowed laterally. Trachea is narrowed to ~ 6mm at the level of clavicular heads. Small R pleural effusion. Sclerotic foci in several upper thoracic vertebral bodies, suspicious for metastatic disease - MRI brain 01/22 (OSH) - unremarkable - s/p tracheostomy 01/24 --> The trach does not pass through the area of compression - trach changed to cuffless by ENT on 01/29 - core bx of neck mass 01/24 - consistent with poorly differentiated carcinoma - TECHNOLOGY ASSISTANT following - TS 28% - onc & rad-onc following; awaiting final path Plan - radiation and concurrent chemo (to begin Saturday or Saturday) Post-Op Bleeding (resolved) - occurred on 01/26 around trach site, no blood noted w/ suctioning --> managed w / thrombin spray - per ENT if re-bleeds use Afrin soaked 4x4 or thrombin spray - continue VTE ppx Tobaccoism - smokes 1.5ppd x 20 years - some emphysematous changes on CT Plan - nicotine patch - smoking cessation counseling GI - has corpak + TFs - last BM 01/31 - s/p Movantik Plan - senna/colace, Miralax, bisacodyl RENAL Hyponatremia (resolved) - Na 137 ID Leukocytosis - likely r/t neck mass - WBC 21.8, afebrile - CXR w/ new R medial lung based medial infiltrate --> monitor - BC 01/24 - NGTD - UA 01/24 - bland - procalcitonin 01/24 - 0.06 - no abx Prophylaxis Review: Lines: Peripheral Line Tubes: trach, Corpak Diet: TF Insulin: No Urinary Catheter: No VTE: Lovenox; SCDs GI: no indication PT/OT: Yes Code status: Full Code Disposition: Remains stable for tx to the floor. Pt seen and discussed with Dr Goldberg. Latisha Solano, PATRICK Pager [phone] pager [phone] Subjective: Kelvin Zaldivar is a 42 y.o. male who is sitting up in the bed watching TV. He has no new complaints. ROS: Denies CP, SOB, cough, N/V/C/D and rash. Objective: Medications: Scheduled Meds: bisacodyl (DULCOLAX) rectal suppository 10 mg 10 mg Rectal QDAY enoxaparin (LOVENOX) syringe 40 mg 40 mg Subcutaneous QDAY(21) nicotine (NICODERM CQ STEP 1) 21 mg/day patch 1 patch 1 patch Transdermal QDAY polyethylene glycol 3350 (MIRALAX) packet 34 g 2 packet Oral BID senna/docusate (SENOKOT-S) solution 10 mL 10 mL Per NG tube BID Continuous Infusions: PRN and Respiratory Meds:albuterol 0.5% Q6H PRN, fentaNYL citrate PF Q3H PRN, ipratropium bromide Q6H PRN, LORazepam (ATIVAN) injection Q4H PRN, magnesium sulfate PRN AND Magnesium DAILY AM AND Notify Physician Ongoing, ondansetron (ZOFRAN) IV Q6H PRN, oxyCODONE/acetaminophen Q4H PRN, pancrelipase 20,000 Units/ sodium bicarbonate 650 mg(#) PRN (Capacitor Assembler from Rx), potassium chloride SR PRN OR potassium chloride PRN, sodium phosphate IVPB PRN (Capacitor Assembler from Rx) AND Phosphorus DAILY AM AND Notify Physician Ongoing, thrombin PRN Vital Signs: Last Filed Vital Signs: 24 Hour Range BP: 130/72 (02/01 035) Temp: 36.4 C (97.5 F) (02/01 035) Pulse: 98 (02/02 436) Respirations: 20 PER MINUTE (02/01 043) SpO2: 95 % (02/01 043) O2 Delivery: Trach Shield (01/31 1600) SpO2 Pulse: 93 (02/01 0354) BP: (127-134)/(72-91) Temp: [36.4 C (97.5 F)-36.9 C (98.4 F)] Pulse: [84-103] Respirations: [17 PER MINUTE-20 PER MINUTE] SpO2: [93 %-98 %] O2 Delivery: Trach Shield Intensity Pain Scale 0-10 (Pain 1): 7 (02/01/18 0340) Vitals: 01/29/18 0529 01/30/18 0600 01/31/18 0500 Weight: 76.3 kg (168 lb 3.4 oz) 78.4 kg (172 lb 13.5 oz) 78.3 kg (172 lb 9.9 oz ) Intake/Output Summary: (Last 24 hours) Intake/Output Summary (Last 24 hours) at 02/01/18 0705 Last data filed at 02/01/18 0600 Gross per 24 hour Intake 1748 ml Output 1100 ml Net 648 ml Physical Exam: General: Alert, cooperative, no distress, appears stated age Head: Normocephalic, without obvious abnormality, atraumatic Eyes: Conjunctivae/corneas clear. Mouth/throat: Moist mucous membranes Neck: R sided neck mass, TTP; cuff less trach in place to TS Lungs: Clear to auscultation bilaterally; no wheeze Heart: Regular rate and rhythm, S1, S2 normal, no murmur appreciated Abdomen: Soft, non-tender. Bowel sounds normal. Extremities: Extremities normal, atraumatic, no cyanosis or edema Pulses: 2+ and symmetric, all extremities Skin: No rashes or lesions noted Neurologic: AOx4, MARTEL, FC Artificial airway: Tracheostomy Tube to TS LABS: Recent Labs 01/30/18 04201/31/18 0353 02/01/18 0343 NA 138 136* 137 K 4.5 4.4 4.1 CL 100 101 100 CO2 29 27 27 GAP 9 8 10 BUN 24 25 27* CR 0.87 0.77 0.82 GLU 112* 120* 120* CA 9.2 9.4 9.6 ALBUMIN 3.4* 3.4* 3.4* MG 1.9 2.1 -- PO4 4.4* 4.9* -- Recent Labs 01/30/18 04201/31/18 0353 02/01/18 0343 WBC 18.7* 21.1* 21.8* HGB 13.3* 13.2* 13.3* HCT 38.2* 38.8* 39.7* PLTCT 234 236 267 AST 17 18 23 ALT 14 13 17 ALKPHOS 112* 106 120* Estimated Creatinine Clearance: 131.3 mL/min (based on SCr of 0.82 mg/dL). Vitals: 01/29/18 0529 01/30/18 0600 01/31/18 0500 Weight: 76.3 kg (168 lb 3.4 oz) 78.4 kg (172 lb 13.5 oz) 78.3 kg (172 lb 9.9 oz ) No results for input(s): PHART, PO2ART in the last 72 hours. Invalid input(s): PC02A Radiology and Other Diagnostic Procedures Review: Reviewed * Karen Snow, RN - 01/31/2018 9:03 PM CDT 1935 Assumed care of patient, received SBAR from JOSE G Holbrook. All questions answered. Patient has no complaints at this time. Bedside safety check done. 2030 Assessment completed, see doc flowsheet for details. Plan of care discussed with patient. Needs met. Will continue to monitor. 0000 Patient resting comfortably. Will continue to monitor. 0430 Patient resting comfortably, will continue to monitor. * Lavinia Baker, OT - 01/31/2018 2:12 PM CDT OCCUPATIONAL THERAPY OT continues to monitor patient's case. Has been mobilizing well with PT. Had plans to monitor need for therapy interventions and have been following to ensure pt did not need OT interventions, especially if patient were to initiate oncology related treatment while in hospital. Will continue to monitor daily. Lavinia Baker OTR/L 6000 * Susu Bee, PT - 01/31/2018 1:08 PM CDT PHYSICAL THERAPY PROGRESS NOTE SUBJECTIVE: Subjective Significant hospital events: Transferred from OSH 01/24/[address] revealing large mass compressing airway, aortic arch and pulmonary artery. S/P tracheostomy, remains high risk airway (discussed briefly with team 01/27/18). Currently awaiting treatment plan. PMHx tobacco use Mental / Cognitive Status: Alert;Oriented;Cooperative Pain: Patient complains of pain;Patient does not rate pain Pain Location: Left;Ribs (reports he feels he pulled a muscle coughing) Pain Interventions: Patient agrees to participate in therapy;Patient pre- medicated Comments: Room Air (humidified) pre/post session, required trach shield 35% FiO2 after walking 175'. Discussed with RT and RN . 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 BED MOBILITY/TRANSFERS: Bed Mobility/Transfers Bed Mobility: Supine to Sit: Independent;Head of Bed Elevated Transfer Type: Sit to/from Stand Transfer: Assistance Level: Standby Assist Transfer: Assistive Device: None End Of Activity Status: Up in Chair;Nursing Notified;Instructed Patient to Request Assist with Mobility;Instructed Patient to Use Call Light GAIT: Gait Gait Distance: 175 feet (seated rest on RoWalker, 260 feet) Gait: Assistance Level: Standby Assist Gait: Assistive Device: (RoWalker) Gait: Descriptors: Pace: Slow Activity Limited By: SOA EDUCATION: Education Persons Educated: Patient Patient Barriers To Learning: Impaired Communication (mouths words, written communication) Teaching Methods: Verbal Instruction;Demonstration Patient Response: Return Demonstration (communicates understanding) Topics: Plan/Goals of PT Interventions;Mobility Progression;Safety Awareness;Up with Assist Only;Importance of Increasing Activity;Use of Assistive Device/ Orthosis;Ambulate With Nursing ASSESSMENT/PROGRESS: Assessment/Progress Impaired Mobility Due To: Decreased Strength;Impaired Balance;Decreased Activity Tolerance;Deconditioning;Medical Status Limitation Assessment/Progress: Should Improve w/ Continued PT Comments: Patient continues to prefer using RoWalker rather than attempting short walks without device. Tall roller walker to be delivered to patient's room today. AM-PAC 6 Clicks Basic Mobility Inpatient Turning from your back to your side while in a flat bed without using bed rails : None Moving from lying on your back to sitting on the side of a flatbed without using bedrails : None Moving to and from a bed to a chair (including a wheelchair): A Little Standing up from a chair using your arms (e.g. wheelchair, or bedside chair): A Little To walk in hospital room: A Little Climbing 3-5 steps with a railing: A Little Raw Score: 20 Standardized (T-scale) Score: 43.99 Basic Mobility CMS 0-100%: 33.32 CMS G Code Modifier for Basic Mobility: CJ GOALS: Goals Goal Formulation: With Patient Time For Goal Achievement: 7 days Pt Will Go Supine To/From Sit: w/ Stand By Assist, Met Pt Will Transfer Sit to Stand: w/ Stand By Assist, Met Pt Will Ambulate: Greater than 200 Feet, w/ No Device, w/ Stand By Assist Pt Will Go Up / Down Stairs: 1-2 Stairs, w/ Stand By Assist PLAN: Plan Treatment Interventions: Mobility Training;Strengthening;Balance Activities; Endurance Training Plan Frequency: 5 Days per Week Comments: Will plan to assess gait without device in next 1-2 visits. RECOMMENDATIONS: PT Discharge Recommendations PT Discharge Recommendations: Home with Assistance (likely if continues to progress as expected) Recommend ongoing assistance for: In and out of house;Ambulation;Stairs Therapist: Susu Bee, PT, DPT Date: 01/31/2018 * Yusef Tomlinson, RN - 01/31/2018 9:43 AM CDT 0730 - Assumed pt care at this time. Bedside safety check preformed. No immediate concerns at this time. 0800 - Initial assessment completed at this time and charted per flow sheet. Pt is Med Surg status. Plan of care reviewed and pt appears to be resting comfortably. Pt currently on 28% TS and receiving no gtts. Pt is A&O x4 and reports no pain. Currently all concerns addressed. VSS per pt trends. Will continue to monitor. 1600 - Afternoon VSS per pt trends. Pt has no complaints or concerns at this time. Will continue to monitor. 1635 - Pt taken to Rad Onc to set up treatment. Pt traveled with transport assist. 1820 - Pt returned to the unit from Rad Onc. Pt tolerated test and travels well. * Winsome Guido APRN - 01/31/2018 8:05 AM CDT Formatting of this note may be different from the original. Oncology Consult Progress Note Name: Kelvin Zaldivar Today's Date: 01/31/2018 Admission Date: 01/24/2018 LOS: 7 days Assessment/Plan: Active Problems: Neck mass SVC (superior vena cava obstruction) Leukocytosis Hyponatremia Tobacco abuse Diagnosis unknown High Grade Carcinoma - Diff dx including lymphoma, germ cell, thyroid malignancy - Presented with hoarse/scratchy throat, dysphonia, noted a palpable right lower neck mass, progressive dyspnea - OSH CT chest- 10.8 cm mass extending from neck to chest, compressing airway involving his aortic arch, encompassing his aorta and pulmonary artery - ENT, CTS, Rad onc consulted - Current tobacco use- 1.5 pack/day 20 + years - LDH elevated at 367, Beta HCG (wnl) 1, AFP (wnl) 2 - Testicular exam w/o mass - 01/24/18: Bronchoscopy, tracheostomy - 01/14/18: IR core biopsy of right supraclavicular mass - Flow cytometry negative for evidence of lymphoma - Pathology: 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 Awaiting additional staining - Adipose tissue, "right neck mass", biopsy: Poorly differentiated malignant neoplasm with necrosis, most compatible with high grade carcinoma, PDL1 20% positive OSH Imaging: - CT neck: right supraclavicular mass (10.8 cm) no discrete thyroid mass - CT neck- infiltrative soft tissue mass, extends to right supraclavicular region, involving mediastinal subcarinal, hilar regions, trachea narrowed - MRI Donald- negative for evidence of mass [facility] Radiology Review (per verbal report) - Diffuse right neck adenopathy, with significant trachea narrowing, diffuse lower neck adenopathy, separate from thyroid (no discrete thyroid mass seen) - Hilar, mediastinal small right pleural effusion, liver lesions too small to characterized, enlarged retroperitoneal lymph nodes Plan -Discussion with Dr. Lundberg and Dr. Wood (radiation oncology) and Dr. Rushing, per recs of thoracic tumor board- will proceed with concurrent chemotherapy/ radiation treatment. Plan for radiation simulation today (01/31/18) with three loading doses of radiation and plan to initiate chemotherapy next Saturday or Saturday (02/03 or 02/04) for ongoing administration with concurrent radiation - Chemotherapy consent obtained- treatment will be with Cisplatin + Etoposide. ( Cisplatin on day 1, Etoposide on day 1-3 q 21 day cycle) - Discussed common side effects of chemotherapy being myelosuppression, nausea, vomiting, alopecia. Will monitor kidney function and any developed of ototoxicity with Cisplatin use Patient seen and discussed with Dr. Nino Subjective Kelvin Zaldivar is a 42 y.o. male. No acute events overnight. Reports pain well controlled, denies any breathing difficulties at this time. Family at bedside. Medications Scheduled Meds: bisacodyl (DULCOLAX) rectal suppository 10 mg 10 mg Rectal QDAY enoxaparin (LOVENOX) syringe 40 mg 40 mg Subcutaneous QDAY(21) methylnaltrexone (RELISTOR) injection 12 mg 12 mg Subcutaneous ONCE nicotine (NICODERM CQ STEP 1) 21 mg/day patch 1 patch 1 patch Transdermal QDAY polyethylene glycol 3350 (MIRALAX) packet 17 g 1 packet Oral BID senna/docusate (SENOKOT-S) solution 10 mL 10 mL Per NG tube BID Continuous Infusions: PRN and Respiratory Meds:albuterol 0.5% Q6H PRN, fentaNYL citrate PF Q3H PRN, ipratropium bromide Q6H PRN, LORazepam (ATIVAN) injection Q4H PRN, magnesium sulfate PRN AND Magnesium DAILY AM AND Notify Physician Ongoing, ondansetron (ZOFRAN) IV Q6H PRN, oxyCODONE/acetaminophen Q4H PRN, pancrelipase 20,000 Units/ sodium bicarbonate 650 mg(#) PRN (Capacitor Assembler from Rx), potassium chloride SR PRN OR potassium chloride PRN, sodium phosphate IVPB PRN (Capacitor Assembler from Rx) AND Phosphorus DAILY AM AND Notify Physician Ongoing, thrombin PRN Objective Vital Signs: Last Filed Vital Signs: 24 Hour Range BP: 124/72 (02/01 400) Temp: 37.1 C (98.7 F) (02/01 400) Pulse: 88 (02/01 400) Respirations: 19 PER MINUTE (02/01 400) SpO2: 96 % (02/01 400) O2 Delivery: Trach Shield (02/01 400) SpO2 Pulse: 88 (02/01 400) BP: (124-144)/(72-83) Temp: [37.1 C (98.7 F)-37.3 C (99.2 F)] Pulse: [88-101] Respirations: [19 PER MINUTE-21 PER MINUTE] SpO2: [89 %-98 %] O2 Delivery: Trach Shield Intensity Pain Scale 0-10 (Pain 1): 7 (01/31/18 0100) Vitals: 01/29/18 0529 01/30/18 0600 01/31/18 0500 Weight: 76.3 kg (168 lb 3.4 oz) 78.4 kg (172 lb 13.5 oz) 78.3 kg (172 lb 9.9 oz ) Intake/Output Summary: (Last 24 hours) Intake/Output Summary (Last 24 hours) at 01/31/18 0805 Last data filed at 01/31/18 0400 Gross per 24 hour Intake 1641 ml Output 1050 ml Net 591 ml Stool Occurrence: 1 Review of Systems: A 14 point review of systems was negative except for: Constitutional: positive for fatigue Physical Exam General appearance: Alert, cooperative, no distress Head: Normocephalic, atraumatic Eyes: PERRL Neck: Tracheostomy Lungs: Non-labored Heart: regular rate and rhythm Extremities: No edema Neurologic: No focal deficits Lab Review 24-hour labs: Results for orders placed or performed during the hospital encounter of (from the past 24 hour(s)) CBC AND DIFF Collection Time: 01/31/18 3:53 AM Result Value Ref Range White Blood Cells 21.1 (H) 4.5 - 11.0 K/UL RBC 4.34 (L) 4.4 - 5.5 M/UL Hemoglobin 13.2 (L) 13.5 - 16.5 GM/DL Hematocrit 38.8 (L) 40 - 50 % MCV 89.5 80 - 100 FL MCH 30.3 26 - 34 PG MCHC 33.9 32.0 - 36.0 G/DL RDW 13.4 11 - 15 % Platelet Count 236 150 - 400 K/UL MPV 7.5 7 - 11 FL Neutrophils 89 (H) 41 - 77 % Lymphocytes 4 (L) 24 - 44 % Monocytes 5 4 - 12 % Eosinophils 2 0 - 5 % Basophils 0 0 - 2 % Absolute Neutrophil Count 18.70 (H) 1.8 - 7.0 K/UL Absolute Lymph Count 0.90 (L) 1.0 - 4.8 K/UL Absolute Monocyte Count 1.00 (H) 0 - 0.80 K/UL Absolute Eosinophil Count 0.40 0 - 0.45 K/UL Absolute Basophil Count 0.10 0 - 0.20 K/UL COMPREHENSIVE METABOLIC PANEL Collection Time: 01/31/18 3:53 AM Result Value Ref Range Sodium 136 (L) 137 - 147 MMOL/L Potassium 4.4 3.5 - 5.1 MMOL/L Chloride 101 98 - 110 MMOL/L Glucose 120 (H) 70 - 100 MG/DL Blood Urea Nitrogen 25 7 - 25 MG/DL Creatinine 0.77 0.4 - 1.24 MG/DL Calcium 9.4 8.5 - 10.6 MG/DL Total Protein 6.8 6.0 - 8.0 G/DL Total Bilirubin 0.3 0.3 - 1.2 MG/DL Albumin 3.4 (L) 3.5 - 5.0 G/DL Alk Phosphatase 106 25 - 110 U/L AST (SGOT) 18 7 - 40 U/L CO2 27 21 - 30 MMOL/L ALT (SGPT) 13 7 - 56 U/L Anion Gap 8 3 - 12 eGFR Non >60 >60 mL/min eGFR >60 >60 mL/min MAGNESIUM Collection Time: 01/31/18 3:53 AM Result Value Ref Range Magnesium 2.1 1.6 - 2.6 mg/dL PHOSPHORUS Collection Time: 01/31/18 3:53 AM Result Value Ref Range Phosphorus 4.9 (H) 2.0 - 4.0 MG/DL Point of Care Testing (Last 24 hours) Glucose: (!) 120 (01/31/18 0353) Radiology and other Diagnostics Review: Pertinent radiology reviewed. Winsome Guido, PRODUCTION MACHINIST [phone] Associated attestation - Lamont Nino DO - 01/31/2018 6:14 PM CDT Patient seen and examined. Medical record, including radiographic and laboratory studies, has been reviewed. The documentation of history, physical findings and plan outlined by the SOLE STAINER represent my own medical decision making. Treatment plans outlined in detail for patient. I described a course of chemotherapy with cisplatin/etoposide, including potential side effects and toxicities. All questions answered to patient's satisfaction, and he agrees to proceed as outlined next week. We have signed informed consent, and will initiate treatment tentatively on 02/04. Lamont Nino [facility] Medical Oncology Consult Service * Gabo Ny MD - 01/31/2018 7:26 AM CDT Formatting of this note may be different from the original. Critical Care Progress Note Kelvin Zaldivar Today's Date: 01/31/2018 Admission Date: 01/24/2018 LOS: 7 days Active Problems: Neck mass SVC (superior vena cava obstruction) Leukocytosis Hyponatremia Tobacco abuse Diagnosis unknown Hospital Course: 42 y.o. male with a PMH of tobaccoism with ~30 pack year hx. About 3w ago developed dysphagia & voice hoarseness; evaluated by ENT in [place] who noted b/l paralyzed vocal cords. CT neck showed large R sided mass. CT c/a/p showed infiltrating mass involving the mediastinum, subcarinal & hilar regions that is narrowing the trachea as well as encompassing the pulm artery & ascending aorta. ENT placed a trach on 01/24 but were unable to completely bypass the area of narrowing. FNA was performed by IR on 01/24 w/ pathology consistent with poorly differentiated carcinoma. Oncology and rad/onc planning treatment. MRI brain 01/22 was normal. Some bleeding around trach site that was managed w/ thrombin spray; since resolved. Stable for tx to the floor. 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 Mass partially encases the ascending aorta & almost completely encases the main pulmonary artery. The trachea is also encompassed & is narrowed laterally. Trachea is narrowed to ~ 6mm at the level of clavicular heads. Small R pleural effusion. Sclerotic foci in several upper thoracic vertebral bodies, suspicious for metastatic disease - MRI brain 01/22 (OSH) - unremarkable - s/p tracheostomy 01/24 --> The trach does not pass through the area of compression - trach changed to cuffless by ENT on 01/29 - core bx of neck mass 01/24 - consistent with poorly differentiated carcinoma - TECHNOLOGY ASSISTANT following - TS 28% Plan - onc & rad-onc following; awaiting final path Post-Op Bleeding (resolved) - occurred on 01/26 around trach site, no blood noted w/ suctioning --> managed w / thrombin spray - per ENT if re-bleeds use Afrin soaked 4x4 or thrombin spray - continue VTE ppx Tobaccoism - smokes 1.5ppd x 20 years - some emphysematous changes on CT Plan - nicotine patch - smoking cessation counseling GI - has corpak + TFs - last BM 01/25 - s/p Movantik Plan - senna/colace, Miralax, bisacodyl - add Relistor RENAL Hyponatremia (resolved) - Na 136 - Alfredo 146 & uOsmo 847 --> ADH dependent - TSH 2.0 & random cortisol 26 ID Leukocytosis - likely r/t neck mass - WBC 21.1, afebrile - CXR w/ new R medial lung based medial infiltrate --> monitor - BC 01/24 - NGTD - UA 01/24 - bland - procalcitonin 01/24 - 0.06 - no abx Prophylaxis Review: Lines: Peripheral Line Tubes: trach Diet: TF Insulin: No Urinary Catheter: No VTE: Lovenox; SCDs GI: no indication PT/OT: Yes Code status: Full Code Disposition: Remains stable for tx to the floor. Pt seen and discussed with Dr Ny. Latisha Solano, PRODUCTION MACHINIST Pager [phone] pager [phone] Subjective: Kelvin Zaldivar is a 42 y.o. male who is sitting up in the bed watching TV. He has no new complaints. He does not feel bloated or constipated. ROS: Denies CP, SOB, cough, N/V/C/D and rash. Objective: Medications: Scheduled Meds: enoxaparin (LOVENOX) syringe 40 mg 40 mg Subcutaneous QDAY(21) nicotine (NICODERM CQ STEP 1) 21 mg/day patch 1 patch 1 patch Transdermal QDAY polyethylene glycol 3350 (MIRALAX) packet 17 g 1 packet Oral BID senna/docusate (SENOKOT-S) solution 10 mL 10 mL Per NG tube BID Continuous Infusions: PRN and Respiratory Meds:albuterol 0.5% Q6H PRN, bisacodyl QDAY PRN, fentaNYL citrate PF Q3H PRN, ipratropium bromide Q6H PRN, LORazepam (ATIVAN) injection Q4H PRN, magnesium sulfate PRN AND Magnesium DAILY AM AND Notify Physician Ongoing, ondansetron (ZOFRAN) IV Q6H PRN, oxyCODONE/acetaminophen Q4H PRN, pancrelipase 20,000 Units/ sodium bicarbonate 650 mg(#) PRN (Capacitor Assembler from Rx), potassium chloride SR PRN OR potassium chloride PRN, sodium phosphate IVPB PRN (Capacitor Assembler from Rx) AND Phosphorus DAILY AM AND Notify Physician Ongoing, thrombin PRN Vital Signs: Last Filed Vital Signs: 24 Hour Range BP: 124/72 (02/01 400) Temp: 37.1 C (98.7 F) (02/01 400) Pulse: 88 (02/01 400) Respirations: 19 PER MINUTE (02/01 400) SpO2: 96 % (02/01 400) O2 Delivery: Trach Shield (02/01 400) SpO2 Pulse: 88 (02/01 400) BP: (124-144)/(72-83) Temp: [37 C (98.6 F)-37.3 C (99.2 F)] Pulse: [88-101] Respirations: [18 PER MINUTE-21 PER MINUTE] SpO2: [89 %-98 %] O2 Delivery: Trach Shield Intensity Pain Scale 0-10 (Pain 1): 7 (01/31/18 0100) Vitals: 01/29/18 0529 01/30/18 0600 01/31/18 0500 Weight: 76.3 kg (168 lb 3.4 oz) 78.4 kg (172 lb 13.5 oz) 78.3 kg (172 lb 9.9 oz ) Intake/Output Summary: (Last 24 hours) Intake/Output Summary (Last 24 hours) at 01/31/18 0726 Last data filed at 01/31/18 0400 Gross per 24 hour Intake 2141 ml Output 1050 ml Net 1091 ml Physical Exam: General: Alert, cooperative, no distress, appears stated age Head: Normocephalic, without obvious abnormality, atraumatic Eyes: Conjunctivae/corneas clear. Mouth/throat: Moist mucous membranes Neck: R sided neck mass, TTP; cuff less trach in place to TS Lungs: Clear to auscultation bilaterally; no wheeze Heart: Regular rate and rhythm, S1, S2 normal, no murmur appreciated Abdomen: Soft, non-tender. Bowel sounds normal. Extremities: Extremities normal, atraumatic, no cyanosis or edema Pulses: 2+ and symmetric, all extremities Skin: No rashes or lesions noted Neurologic: AOx4, MARTEL, FC Artificial airway: Tracheostomy Tube to TS LABS: Recent Labs 01/29/18 0407 01/30/18 0421 01/31/18 0353 NA 134* 138 136* K 4.2 4.5 4.4 CL 98 100 101 CO2 29 29 27 GAP 7 9 8 BUN 22 24 25 CR 0.74 0.87 0.77 GLU 112* 112* 120* CA 9.3 9.2 9.4 ALBUMIN 3.4* 3.4* 3.4* MG 2.0 1.9 2.1 PO4 4.4* 4.4* 4.9* Recent Labs 01/29/18 0407 01/30/18 0421 01/31/18 0353 WBC 17.5* 18.7* 21.1* HGB 13.1* 13.3* 13.2* HCT 38.3* 38.2* 38.8* PLTCT 220 234 236 AST 16 17 18 ALT 14 14 13 ALKPHOS 94 112* 106 Estimated Creatinine Clearance: 139.8 mL/min (based on SCr of 0.77 mg/dL). Vitals: 01/29/18 0529 01/30/18 0600 01/31/18 0500 Weight: 76.3 kg (168 lb 3.4 oz) 78.4 kg (172 lb 13.5 oz) 78.3 kg (172 lb 9.9 oz ) No results for input(s): PHART, PO2ART in the last 72 hours. Invalid input(s): PC02A Radiology and Other Diagnostic Procedures Review: Reviewed ATTESTATION I personally performed the torres portions of the E/M visit, discussed case with Nurse Practitioner and concur with documentation of history, physical exam, assessment, and treatment plan unless otherwise noted. Staff name: Gabo Ny MD Date: 01/31/2018 * Tara Trejo, RN - 01/31/2018 6:01 AM CDT 1925 Assumed pt care at this time. Bedside safety check performed, plan of care reviewed. 2000 Physical assessment complete, please see ICU flowsheet for details. Pt trached on trach shield, alert and oriented x4. VSS per trends. Will continue to monitor. 0400 VSS per trends, AM labs drawn and sent. * Desi Butt - 01/30/2018 11:01 AM CDT Branch Associate Note: Admit Date: 01/24/2018 Reason for visit; Rounds. Jainism; Protestant. The patient couldn't speak loudly but tried to communicate with me by a whisper and nodding of his head. He was asked when do he think that he will be going home. He mouthed the words "hopefully today" and gave me a thumbs up. He was asked if he has good family support and he nodded yes and (smiled). The drying rack changer didn't noticed any worries or concerns, the patient was sitting up in a chair and reading a book. The drying rack changer addressed spiritual resources with the patient. The spiritual care team is available as needed, 20/05, through the campus switchboard ([phone]). For immediate response, please page [phone]. For a response within 24 hours, please submit an order in O2 for a drying rack changer consult or call the administrative voicemail at [phone]. Please page or use consult order if patient requests visit. Date/Time: User: Pager: [phone] 01/30/2018 11:01 AM Desi Butt PCU 4 PCU * Kira Cardona - 01/30/2018 9:57 AM CDT SPEECH-LANGUAGE PATHOLOGY DAILY TREATMENT NOTE Patient seen 1x this date. Documentation reflects all daily treatment sessions. SUMMARY OF THERAPY SESSION: Pt seen for ongoing speaking valve/AAC assessment/ treatment. Trach tube changed yesterday (6.0 Shiley, cuffless). Pt continues with poor tolerance of speaking valve, tolerating less than 5 seconds. Anticipate poor tolerance due to known mass below level of trach obstructing airflow. Do not anticipate pt will tolerate speaking valve in near future. TECHNOLOGY ASSISTANT will discontinue speaking valve trials at this time, as not a candidate for speaking valve use. Pt functionally communicating wants/needs/ideas via written expression and mouthing words. Pt educated on etiology of intolerance of speaking valve, and AAC options, including writing, mouthing and use of smart phone voice to text applications. TECHNOLOGY ASSISTANT will return to further discuss potential AAC options to utilize for the time being, while treatment plan is developed. Initiated discussion regarding potential evaluation of swallow in the future, when medically appropriate. Pt reported progressive difficulty swallowing prior to admission, noting increased difficulty with liquids as opposed to solids, likely consistent with potential RLN involvement with documented vocal folds in paramedian position. Due to potential RLN involvement, further anticipate high risk for decreased sensation and therefore, silent aspiration. Would recommend video swallow study to further assess swallow when medically appropriate. TECHNOLOGY ASSISTANT will be in contact with primary team. RECOMMENDATIONS Assist pt with other means of communication (e.g. Writing, mouthing words, phone apps) TECHNOLOGY ASSISTANT will follow for ongoing AAC evaluation. Will be in contact with primary team regarding evaluation of swallow when medically appropriate. Likely will require a video swallow study prior to diet initiation. Will benefit from TECHNOLOGY ASSISTANT at next level of care. Relevant Findings not previously included in TECHNOLOGY ASSISTANT documentation: Laryngeal Endoscopic Examination (01/24/18): After obtaining verbal consent, a flexible fiberoptic laryngoscope was inserted into the nasal cavities. The nasal anatomy is normal without mass or mucosal lesion. The laryngoscope was then passed into the nasopharynx, which showed normal eustachian tube openings. The fossae of Rosenmller were clear with normal elevation of the soft palate and were without any evidence of masses or lesions. Passing the flexible scope into the oropharynx and hypopharynx revealed that the base of tongue and vallecula were without lesions. The epiglottis is upright. The piriform sinuses were without lesions or any pooling of secretions or visible aspiration. The false vocal cords and true vocal cords were without lesions. The TVC were both fixed paramedian, no arytenoid mobility. Patient had adequate glottic airway. The visualized part of the subglottis is clear. There was no extrinsic mass effects in the pharynx. The flexible fiberoptic scope was then removed. The patient tolerated the procedure well without complications Goal : Pt will participate in ongoing assessment of speaking valve, given moderate cues to participate. Met Comment: see above Discharge goal as inappropriate Goal : Pt will tolerate speaking valve placement for 2 minutes with stable physiologic parameters. Not met Comment: pt tolerated for less than 5 seconds, over 1 trial. Discharge goal as inappropriate New Goal: Pt will participate in ongoing AAC evaluation, given minimal cues to participate. PLAN / RECOMMENDATIONS: Continue treatment 3x/week and Patient would benefit from further speech therapy post acute hospitalization. Therapist: Kira Cardona- TECHNOLOGY ASSISTANT Student Date: 01/30/2018 Associated attestation - Nayana Meeks MS,[facility]-TECHNOLOGY ASSISTANT - 01/30/2018 10:21 AM CDT Attestation: I was present and involved in directing care of the patient throughout the speech therapy session. Nayana Meeks, MS, [facility]-TECHNOLOGY ASSISTANT [phone] * Susu Bee, PT - 01/30/2018 8:53 AM CDT PHYSICAL THERAPY PROGRESS NOTE SUBJECTIVE: Subjective Significant hospital events: Transferred from OSH 01/24/[address] revealing large mass compressing airway, aortic arch and pulmonary artery. Pathology is pending. S/P tracheostomy, remains high risk airway (discussed briefly with team 01/27/18). PMHx tobacco use Mental / Cognitive Status: Alert;Oriented;Cooperative Persons Present: Screen Stretcher Pain: Patient complains of pain;2/10;3/10;Before activity;5/10;6/10;After activity Pain Location: Right;Shoulder;Neck (chest with coughing) Pain Interventions: Patient agrees to participate in therapy with modifications to session Comments: Trach shield to 30% FiO2 at rest and 35% FiO2 for ambulation. 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 BED MOBILITY/TRANSFERS: Bed Mobility/Transfers Bed Mobility: Supine to Sit: Independent Transfer Type: Sit to/from Stand (performed twice) Transfer: Assistance Level: To/From;Bed;Bed Side Chair;Standby Assist Transfer: Assistive Device: None End Of Activity Status: Up in Chair;Nursing Notified;Instructed Patient to Request Assist with Mobility;Instructed Patient to Use Call Light Patient reported mild dizziness initially upon sitting edge of bed, resolved quickly, BP stable. Patient agreeable to attempting ambulation without device after a "warm-up" lap with RoWalker. After walk in halls, deferred further ambulation without device as patient with productive cough for several minutes ( thick secretions) and increased pain with coughing. GAIT: Gait Gait Distance: 235 feet Gait: Assistance Level: Standby Assist Gait: Assistive Device: (RoWalker) Gait: Descriptors: Pace: Slow EDUCATION: Education Persons Educated: Patient Patient Barriers To Learning: Impaired Communication (mouths words, written communication) Teaching Methods: Verbal Instruction;Demonstration Patient Response: Return Demonstration (communicates understanding) Topics: Plan/Goals of PT Interventions;Mobility Progression;Safety Awareness;Up with Assist Only;Importance of Increasing Activity;Use of Assistive Device/ Orthosis;Ambulate With Nursing ASSESSMENT/PROGRESS: Assessment/Progress Impaired Mobility Due To: Decreased Strength;Impaired Balance;Decreased Activity Tolerance;Deconditioning;Medical Status Limitation Assessment/Progress: Should Improve w/ Continued PT AM-PAC 6 Clicks Basic Mobility Inpatient Turning from your back to your side while in a flat bed without using bed rails : A Little Moving from lying on your back to sitting on the side of a flatbed without using bedrails : A Little Moving to and from a bed to a chair (including a wheelchair): A Little Standing up from a chair using your arms (e.g. wheelchair, or bedside chair): A Little To walk in hospital room: A Little Climbing 3-5 steps with a railing: A Little Raw Score: 18 Standardized (T-scale) Score: 41.05 Basic Mobility CMS 0-100%: 40.47 CMS G Code Modifier for Basic Mobility: CK GOALS: Goals Goal Formulation: With Patient Time For Goal Achievement: 7 days Pt Will Go Supine To/From Sit: w/ Stand By Assist, Met Pt Will Transfer Sit to Stand: w/ Stand By Assist, Met Pt Will Ambulate: Greater than 200 Feet, w/ No Device, w/ Stand By Assist Pt Will Go Up / Down Stairs: 1-2 Stairs, w/ Stand By Assist PLAN: Plan Treatment Interventions: Mobility Training;Strengthening;Balance Activities; Endurance Training Plan Frequency: 5 Days per Week Comments: Will plan to assess gait without device next visit if patient able to tolerate. P.T. mobility aide to assist with ongoing mobilization and exercise per instructions of licensed physical therapy staff. RECOMMENDATIONS: PT Discharge Recommendations PT Discharge Recommendations: Home with Assistance (likely if continues to progress as expected) Recommend ongoing assistance for: In and out of house;Ambulation;Stairs Therapist: Susu Bee, PT, DPT Date: 01/30/2018 * Yusef Tomlinson RN - 01/30/2018 7:55 AM CDT 0730 - Assumed pt care at this time. Bedside safety check preformed. No immediate concerns at this time. 0800 - Initial assessment completed at this time and charted per flow sheet. Pt is Med Surg status. Plan of care reviewed and pt appears to be resting comfortably. Pt currently on 28% TS and receiving no gtts. Pt is A&O x4 and reports no pain. Currently family at the bedside and all concerns addressed. VSS per pt trends. Will continue to monitor. 1600 - Afternoon VSS per pt trends. Pt has no complaints or concerns at this time. Will continue to monitor. * Gabo Ny MD - 01/30/2018 7:52 AM CDT Formatting of this note may be different from the original. Critical Care Progress Note Kelvin Zaldivra Today's Date: 01/30/2018 Admission Date: 01/24/2018 LOS: 6 days Active Problems: Neck mass SVC (superior vena cava obstruction) Leukocytosis Hyponatremia Tobacco abuse Diagnosis unknown Hospital Course: 42 y.o. male with a PMH of tobaccoism with ~30 pack year hx. About 3w ago developed dysphagia & voice hoarseness; evaluated by ENT in [place] who noted b/l paralyzed vocal cords. CT neck showed large R sided mass. CT c/a/p showed infiltrating mass involving the mediastinum, subcarinal & hilar regions that is narrowing the trachea as well as encompassing the pulm artery & ascending aorta. ENT placed a trach on 01/24 but were unable to completely bypass the area of narrowing. FNA was performed by IR on 01/24 w/ pathology pending; onc/rad-onc following & awaiting results. MRI brain 01/22 was normal. Some bleeding around trach site that was managed w/ thrombin spray; since resolved. Stable for tx to the floor. 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 Mass partially encases the ascending aorta & almost completely encases the main pulmonary artery. The trachea is also encompassed & is narrowed laterally. Trachea is narrowed to ~ 6mm at the level of clavicular heads. Small R pleural effusion. Sclerotic foci in several upper thoracic vertebral bodies, suspicious for metastatic disease - MRI brain 01/22 (OSH) - unremarkable - s/p tracheostomy 01/24 --> The trach does not pass through the area of compression - trach changed to cuffless by ENT on 01/29 - core bx of neck mass 01/24 - path in process - TECHNOLOGY ASSISTANT following - TS 28% Plan - onc & rad-onc following; awaiting final path Post-Op Bleeding (resolved) - occurred on 01/26 around trach site, no blood noted w/ suctioning --> managed w / thrombin spray - per ENT if re-bleeds use afrin soaked 4x4 or thrombin spray - continue VTE ppx Tobaccoism - smokes 1.5ppd x 20 years - some emphysematous changes on CT Plan - nicotine patch - smoking cessation counseling GI - has corpak + TFs - last BM 01/25 Plan - check KUB for ileus/obstruction - if no obstruction, give Movantik - senna/colace, Miralax; prn bisacodyl RENAL Hyponatremia (resolved) - Na 138 - Alfredo 146 & uOsmo 847 --> ADH dependent - TSH 2.0 & random cortisol 26 ID Leukocytosis - likely r/t neck mass - WBC 18.7, afebrile - CXR w/ new R medial lung based medial infiltrate --> monitor - BC 01/24 - NGTD - UA 01/24 - bland - procalcitonin 01/24 - 0.06 - no abx Prophylaxis Review: Lines: Peripheral Line Tubes: trach Diet: TF Insulin: No Urinary Catheter: No VTE: Lovenox; SCDs GI: no indication PT/OT: Yes Code status: Full Code Disposition: Remains stable for tx to the floor. Pt seen and discussed with Dr Ny. Latisha Solano, PRODUCTION MACHINIST Pager [phone] M2 pager [phone] Subjective: Kelvin Zaldivar is a 42 y.o. male who is sitting up in the chair talking with his family. He has no new complaints. ROS: Denies CP, SOB, cough, N/V/C/D and rash. Objective: Medications: Scheduled Meds: enoxaparin (LOVENOX) syringe 40 mg 40 mg Subcutaneous QDAY(21) nicotine (NICODERM CQ STEP 1) 21 mg/day patch 1 patch 1 patch Transdermal QDAY polyethylene glycol 3350 (MIRALAX) packet 17 g 1 packet Oral BID senna/docusate (SENOKOT-S) solution 10 mL 10 mL Per NG tube BID Continuous Infusions: PRN and Respiratory Meds:albuterol 0.5% Q6H PRN, bisacodyl QDAY PRN, fentaNYL citrate PF Q3H PRN, ipratropium bromide Q6H PRN, LORazepam (ATIVAN) injection Q4H PRN, magnesium sulfate PRN AND Magnesium DAILY AM AND Notify Physician Ongoing, ondansetron (ZOFRAN) IV Q6H PRN, oxyCODONE/acetaminophen Q4H PRN, pancrelipase 20,000 Units/ sodium bicarbonate 650 mg(#) PRN (Capacitor Assembler from Rx), potassium chloride SR PRN OR potassium chloride PRN, sodium phosphate IVPB PRN (Capacitor Assembler from Rx) AND Phosphorus DAILY AM AND Notify Physician Ongoing, thrombin PRN Vital Signs: Last Filed Vital Signs: 24 Hour Range BP: 132/90 (01/31 400) Temp: 37.4 C (99.3 F) (01/31 400) Pulse: 99 (01/31 400) Respirations: 19 PER MINUTE (01/31 400) SpO2: 96 % (01/31 400) O2 Delivery: Trach Shield (01/31 400) SpO2 Pulse: 99 (01/31 400) BP: (114-140)/(70-90) Temp: [36.7 C (98 F)-37.4 C (99.3 F)] Pulse: [95-104] Respirations: [18 PER MINUTE-21 PER MINUTE] SpO2: [94 %-97 %] O2 Delivery: Trach Shield Intensity Pain Scale 0-10 (Pain 1): 5 (01/30/18 0430) Vitals: 01/28/18 0500 01/29/18 0529 01/30/18 0600 Weight: 76.2 kg (167 lb 15.9 oz) 76.3 kg (168 lb 3.4 oz) 78.4 kg (172 lb 13.5 oz ) Intake/Output Summary: (Last 24 hours) Intake/Output Summary (Last 24 hours) at 01/30/18 0752 Last data filed at 01/30/18 0700 Gross per 24 hour Intake 2601 ml Output 985 ml Net 1616 ml Physical Exam: General: Alert, cooperative, no distress, appears stated age Head: Normocephalic, without obvious abnormality, atraumatic Eyes: Conjunctivae/corneas clear. Mouth/throat: Moist mucous membranes Neck: R sided neck mass, TTP; cuff less trach in place to TS Lungs: Clear to auscultation bilaterally; no wheeze Heart: Regular rate and rhythm, S1, S2 normal, no murmur appreciated Abdomen: Soft, non-tender. Bowel sounds normal. Extremities: Extremities normal, atraumatic, no cyanosis or edema Pulses: 2+ and symmetric, all extremities Skin: No rashes or lesions noted Neurologic: AOx4, MARTEL, FC Artificial airway: Tracheostomy Tube to TS LABS: Recent Labs 01/28/18 0351 01/29/18 0407 01/30/18 0421 NA 134* 134* 138 K 4.2 4.2 4.5 CL 98 98 100 CO2 28 29 29 GAP 8 7 9 BUN 20 22 24 CR 0.76 0.74 0.87 GLU 106* 112* 112* CA 9.5 9.3 9.2 ALBUMIN 3.5 3.4* 3.4* MG 2.0 2.0 1.9 PO4 3.8 4.4* 4.4* Recent Labs 01/28/18 0351 01/29/18 0407 01/30/18 0421 WBC 17.7* 17.5* 18.7* HGB 12.9* 13.1* 13.3* HCT 37.7* 38.3* 38.2* PLTCT 211 220 234 AST 16 16 17 ALT 11 14 14 ALKPHOS 103 94 112* Estimated Creatinine Clearance: 123.9 mL/min (based on SCr of 0.87 mg/dL). Vitals: 01/28/18 0500 01/29/18 0529 01/30/18 0600 Weight: 76.2 kg (167 lb 15.9 oz) 76.3 kg (168 lb 3.4 oz) 78.4 kg (172 lb 13.5 oz ) No results for input(s): PHART, PO2ART in the last 72 hours. Invalid input(s): PC02A Radiology and Other Diagnostic Procedures Review: Reviewed ATTESTATION I personally performed the torres portions of the E/M visit, discussed case with Nurse Practitioner and concur with documentation of history, physical exam, assessment, and treatment plan unless otherwise noted. Pathology final on right supraclavicular core biopsies: A. Adipose tissue, "right neck mass", biopsy: Poorly differentiated malignant neoplasm with necrosis, most compatible with high grade carcinoma See comment. Comment: Immunostains performed on block A1 demonstrate that the tumor cells are diffusely positive for pancytokeratin and CAM5.2 and are negative for synaptophysin, TTF1, Napsin, PAX8, [...] immunostain for NUT is being performed at [facility] [place] and be reported in an addendum Oncology planning to visit with the patient today to discuss treatment options. Otherwise stable on 21% trach shield. OK for transfer to Oncology. Staff name: Gabo Ny MD Date: 01/30/2018 * Winsome Guido APRN - 01/30/2018 7:22 AM CDT Formatting of this note may be different from the original. Oncology Consult Progress Note Name: Kelvin Zaldivar Today's Date: 01/29/2018 Admission Date: 01/24/2018 LOS: 5 days Assessment/Plan: Active Problems: Neck mass SVC (superior vena cava obstruction) Leukocytosis Hyponatremia Tobacco abuse Diagnosis unknown High Grade Carcinoma - Diff dx including lymphoma, germ cell, thyroid malignancy - Presented with hoarse/scratchy throat, dysphonia, noted a palpable right lower neck mass, progressive dyspnea - OSH CT chest- 10.8 cm mass extending from neck to chest, compressing airway involving his aortic arch, encompassing his aorta and pulmonary artery - ENT, CTS, Rad onc consulted - Current tobacco use- 1.5 pack/day 20 + years - LDH elevated at 367, Beta HCG (wnl) 1, AFP (wnl) 2 - Testicular exam w/o mass - 01/24/18: Bronchoscopy, tracheostomy - 01/14/18: IR core biopsy of right supraclavicular mass - Flow cytometry negative for evidence of lymphoma - Pathology: 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 Awaiting additional staining - Adipose tissue, "right neck mass", biopsy: Poorly differentiated malignant neoplasm with necrosis, most compatible with high grade carcinoma, PDL1 20% positive OSH Imaging: - CT neck: right supraclavicular mass (10.8 cm) no discrete thyroid mass - CT neck- infiltrative soft tissue mass, extends to right supraclavicular region, involving mediastinal subcarinal, hilar regions, trachea narrowed - MRI Donald- negative for evidence of mass [facility] Radiology Review (per verbal report) - Diffuse right neck adenopathy, with significant trachea narrowing, diffuse lower neck adenopathy, separate from thyroid (no discrete thyroid mass seen) - Hilar, mediastinal small right pleural effusion, liver lesions too small to characterized, enlarged retroperitoneal lymph nodes Plan - Reviewed pathology results, definitive primary malignancy remains unclear, however Germ cell, neuroendocrine, thyroid carcinomas have been ruled out - Dicussed with Dr. Lundberg (rad onc). Given aggressiveness of malignancy, will need to initiate treatment during this hospital admission - Likely combined modality treatment with concurrent chemotherapy and radiation - Touching base with Dr. Rushing (thoracic oncology). Likely systemic treatment to be composed of kasaan doublet therapy Patient seen and discussed with Dr. Nino Subjective Kelvin Zaldivar is a 42 y.o. male. No acute events overnight. Reports pain well controlled, denies any breathing difficulties at this time. Family at bedside. Medications Scheduled Meds: enoxaparin (LOVENOX) syringe 40 mg 40 mg Subcutaneous QDAY(21) nicotine (NICODERM CQ STEP 1) 21 mg/day patch 1 patch 1 patch Transdermal QDAY polyethylene glycol 3350 (MIRALAX) packet 17 g 1 packet Oral BID senna/docusate (SENOKOT-S) solution 10 mL 10 mL Per NG tube BID Continuous Infusions: PRN and Respiratory Meds:albuterol 0.5% Q6H PRN, fentaNYL citrate PF Q3H PRN, ipratropium bromide Q6H PRN, LORazepam (ATIVAN) injection Q4H PRN, magnesium sulfate PRN AND Magnesium DAILY AM AND Notify Physician Ongoing, ondansetron (ZOFRAN) IV Q6H PRN, oxyCODONE/acetaminophen Q4H PRN, pancrelipase 20,000 Units/ sodium bicarbonate 650 mg(#) PRN (Capacitor Assembler from Rx), potassium chloride SR PRN OR potassium chloride PRN, sodium phosphate IVPB PRN (Capacitor Assembler from Rx) AND Phosphorus DAILY AM AND Notify Physician Ongoing, thrombin PRN Objective Vital Signs: Last Filed Vital Signs: 24 Hour Range BP: 140/74 (01/29 1607) Temp: 36.8 C (98.3 F) (01/29 1607) Pulse: 98 (01/29 1607) Respirations: 18 PER MINUTE (01/29 1305) SpO2: 96 % (01/29 1607) O2 Delivery: Trach Shield (01/29 1607) SpO2 Pulse: 118 (01/29 1607) BP: (114-140)/(70-83) Temp: [36.7 C (98 F)-38 C (100.4 F)] Pulse: [92-110] Respirations: [18 PER MINUTE-20 PER MINUTE] SpO2: [93 %-98 %] O2 Delivery: Trach Shield Intensity Pain Scale 0-10 (Pain 1): 5 (01/30/18 0430) Vitals: 01/28/18 0500 01/29/18 0529 01/30/18 0600 Weight: 76.2 kg (167 lb 15.9 oz) 76.3 kg (168 lb 3.4 oz) 78.4 kg (172 lb 13.5 oz ) Intake/Output Summary: (Last 24 hours) Intake/Output Summary (Last 24 hours) at 01/30/18 0722 Last data filed at 01/30/18 0700 Gross per 24 hour Intake 2601 ml Output 985 ml Net 1616 ml Stool Occurrence: 1 Review of Systems: A 14 point review of systems was negative except for: Constitutional: positive for fatigue Physical Exam General appearance: Alert, cooperative, no distress Head: Normocephalic, atraumatic Eyes: PERRL Neck: Tracheostomy Lungs: Non-labored Heart: regular rate and rhythm Extremities: No edema Neurologic: No focal deficits Lab Review 24-hour labs: Results for orders placed or performed during the hospital encounter of (from the past 24 hour(s)) MISCELLANEOUS SURGICAL PATHOLOGY REFERENCE LAB TEST Collection Time: 01/29/18 10:00 AM Result Value Ref Range Test NUT BU IHC Reference Lab PERFORMED AT [facility] [employer] Results Ref Lab RESULTS WILL BW REPORTED IN AN ADDENDUM Specimen Mail SLIDES [id number] CBC AND DIFF Collection Time: 01/30/18 4:21 AM Result Value Ref Range White Blood Cells 18.7 (H) 4.5 - 11.0 K/UL RBC 4.30 (L) 4.4 - 5.5 M/UL Hemoglobin 13.3 (L) 13.5 - 16.5 GM/DL Hematocrit 38.2 (L) 40 - 50 % MCV 88.7 80 - 100 FL MCH 30.8 26 - 34 PG MCHC 34.7 32.0 - 36.0 G/DL RDW 13.8 11 - 15 % Platelet Count 234 150 - 400 K/UL MPV 7.4 7 - 11 FL Neutrophils 87 (H) 41 - 77 % Lymphocytes 5 (L) 24 - 44 % Monocytes 6 4 - 12 % Eosinophils 2 0 - 5 % Basophils 0 0 - 2 % Absolute Neutrophil Count 16.20 (H) 1.8 - 7.0 K/UL Absolute Lymph Count 1.00 1.0 - 4.8 K/UL Absolute Monocyte Count 1.20 (H) 0 - 0.80 K/UL Absolute Eosinophil Count 0.30 0 - 0.45 K/UL Absolute Basophil Count 0.00 0 - 0.20 K/UL COMPREHENSIVE METABOLIC PANEL Collection Time: 01/30/18 4:21 AM Result Value Ref Range Sodium 138 137 - 147 MMOL/L Potassium 4.5 3.5 - 5.1 MMOL/L Chloride 100 98 - 110 MMOL/L Glucose 112 (H) 70 - 100 MG/DL Blood Urea Nitrogen 24 7 - 25 MG/DL Creatinine 0.87 0.4 - 1.24 MG/DL Calcium 9.2 8.5 - 10.6 MG/DL Total Protein 6.8 6.0 - 8.0 G/DL Total Bilirubin 0.4 0.3 - 1.2 MG/DL Albumin 3.4 (L) 3.5 - 5.0 G/DL Alk Phosphatase 112 (H) 25 - 110 U/L AST (SGOT) 17 7 - 40 U/L CO2 29 21 - 30 MMOL/L ALT (SGPT) 14 7 - 56 U/L Anion Gap 9 3 - 12 eGFR Non >60 >60 mL/min eGFR >60 >60 mL/min MAGNESIUM Collection Time: 01/30/18 4:21 AM Result Value Ref Range Magnesium 1.9 1.6 - 2.6 mg/dL PHOSPHORUS Collection Time: 01/30/18 4:21 AM Result Value Ref Range Phosphorus 4.4 (H) 2.0 - 4.0 MG/DL Point of Care Testing (Last 24 hours) Glucose: (!) 112 (01/29/18 0407) Radiology and other Diagnostics Review: Pertinent radiology reviewed. Winsome Guido, PRODUCTION MACHINIST [phone] Associated attestation - Lamont Nino DO - 01/30/2018 5:48 PM CDT Patient seen and examined. Medical record, including radiographic and laboratory studies, has been reviewed. The documentation of history, physical findings and plan outlined by the SOLE STAINER represent my own medical decision making. Plans for approach to management of malignancy in progress. Hopeful of being able to initiate treatment soon. Lamont Nino DO, [facility] Medical Oncology Consult Service * Tara Trejo, JOSE G - 01/30/2018 7:21 AM CDT 1930 Assumed pt care at this time. Bedside safety check performed, plan of care reviewed. 1999 Physical assessment complete, please see ICU flowsheet for details. Pt trached, on 21% FiO2 trach shield, tolerating well. Pt alert and oriented x4, follows commands. VSS per trends. Will continue to monitor. 0400 VSS per trends, AM labs drawn and sent. [address] Piña of pt last BM 01/25, pt bowel sounds hyperactive, no abdominal distention, pt requesting something to help him have a BM. * Shen Huang - 01/29/2018 3:15 PM CDT PHYSICAL THERAPY MOBILITY NOTE Patient was mobilized today with the assistance of the P.T. mobility aide as part of the ongoing physical therapy plan of care. Aide: Shen Sal Date: 01/29/2018 * Kira Isidro - 01/29/2018 1:20 PM CDT CLINICAL NUTRITION Clinical Nutrition Follow-Up Summary Nutrition Assessment of Patient: Malnutrition Assessment: Malnutrition present Malnutrition Context: ICD-10 code E44: Acute illness/Moderate non-severe malnutrition Current Oral Intake: NPO Estimated Calorie Needs: 3928-3628 (28-32 kcal/kg admit wt of 79.1 kg) Estimated Protein Needs: 95-115 (1.2-1.5 g/kg admit wt) Oral Diet Order: NPO Intake (calories) Daily Average : 1594 kilocalories (72% estimated needs) Intake (protein) Daily Average : 72 grams (76% estimated needs) Current EN Order: Isosource 1.5 with goal rate of 65ml/hr with 125ml q6hr to provide 2340kcals, 106g protein, and 1692ml free water at goal. 42 yo M with no PMH admit on 01/24 as transfer from OSH after CT showed large neck/chest mass and concern for high risk airway. He is now s/p trach, corpak placement (NG) with tip in stomach. Per previous RD, pt reports he is down ~10# from UBW of 185#, thinks he has lost this weight in the past month or so. Previous RD noted mild muscle wating in temples and interosseous muscle. Pt stated he was able to eat prior to trach placement, but with progressive difficulty. Pt continues to meet criteria for moderate non-severe malnutrition in the context of acute illness. EN infusion of Isosource 1.5 initiated on 01/26. Pt experienced nausea during a PT session and repoted increased nausea with tube feeds at 40ml/hr on 01/27. TF was held temporarily but resumed in the afternoon 01/27; reached goal rate of 65ml/hr in evening of 01/27. 3-day avg shows intake of 1594kcals (72% estimated needs) and 72g protein (76% estimated needs) . Pt on trach shield and working on speaking valuve trials. Per RN, pt has not had a BM since 01/25 but has hyperactive bowel sounds. However, pt is ambulating to aid in constipation and bowel regimen was increased to miralax and senna twice daily. Pt has no edema, +2.4L since admit, no pressure injuries noted. Will continue to monitor. Recommendation: Continue EN infusion as ordered. Initiate volume-based protocol: 24hr goal 1560ml, 4hr goal 260ml Intervention / Plan: Monitor EN adequacy, tolerance, and appropriateness Monitor GI function, wt trends, labs Nutrition Diagnosis: Nutrition Diagnosis: Inadequate oral intake Etiology: altered GI function/dysphagia Signs & Symptoms: NPO with need for non oral nutrition support Goals: EN tolerated and meeting >75% of nutritional needs Time Frame: Within 72 Hours Status: Partially met;Ongoing Kira Isidro, Human Resource Consultant, *[phone] Associated attestation - Karen Salcedo RD - 01/29/2018 2:56 PM CDT Agree with internal communications writer's follow-up assesssment/reocmmendations as summarized. Karen Salcedo RD, LD, [facility] *[phone] * Susu Bee, PT - 01/29/2018 10:51 AM CDT PHYSICAL THERAPY PROGRESS NOTE SUBJECTIVE: Subjective Significant hospital events: Transferred from OSH 01/24/[address] revealing large mass compressing airway, aortic arch and pulmonary artery. Pathology is pending. S/P tracheostomy, remains high risk airway (discussed briefly with team 01/27/18). 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 BED MOBILITY/TRANSFERS: Bed Mobility/Transfers Comments: Patient sitting edge of bed initially. Transfer Type: Sit to/from Stand (performed twice) Transfer: Assistance Level: To/From;Standby Assist End Of Activity Status: Up in Chair;Nursing Notified;Instructed Patient to Request Assist with Mobility;Instructed Patient to Use Call Light GAIT: Gait Gait Distance: 205 feet (seated rest on RoWalker, 105 feet) Gait: Assistance Level: Standby Assist Gait: Assistive Device: (RoWalker) Gait: Descriptors: Pace: Slow (narrow base support demonstrates some weakness right hip dur) Comments: SpO2 97% Activity Limited By: Complaint of Fatigue EDUCATION: Education Persons Educated: Patient Patient Barriers To Learning: Impaired Communication (mouths words, written communication) Teaching Methods: Verbal Instruction;Demonstration Patient Response: Return Demonstration (communicates understanding) Topics: Plan/Goals of PT Interventions;Mobility Progression;Safety Awareness;Up with Assist Only;Importance of Increasing Activity;Use of Assistive Device/ Orthosis;Ambulate With Nursing (up to chair with nursing staff) ASSESSMENT/PROGRESS: Assessment/Progress Impaired Mobility Due To: Decreased Strength;Impaired Balance;Decreased Activity Tolerance;Deconditioning;Medical Status Limitation Assessment/Progress: Should Improve w/ Continued PT AM-PAC 6 Clicks Basic Mobility Inpatient Turning from your back to your side while in a flat bed without using bed rails : A Little Moving from lying on your back to sitting on the side of a flatbed without using bedrails : A Little Moving to and from a bed to a chair (including a wheelchair): A Little Standing up from a chair using your arms (e.g. wheelchair, or bedside chair): A Little To walk in hospital room: A Little Climbing 3-5 steps with a railing: A Little Raw Score: 18 Standardized (T-scale) Score: 41.05 Basic Mobility CMS 0-100%: 40.47 CMS G Code Modifier for Basic Mobility: CK GOALS: Goals Goal Formulation: With Patient Time For Goal Achievement: 7 days Pt Will Go Supine To/From Sit: w/ Stand By Assist Pt Will Transfer Sit to Stand: w/ Stand By Assist, Met Pt Will Ambulate: Greater than 200 Feet, w/ No Device, w/ Stand By Assist (goal modified this date) Pt Will Go Up / Down Stairs: 1-2 Stairs, w/ Stand By Assist PLAN: Plan Treatment Interventions: Mobility Training;Strengthening;Balance Activities; Endurance Training Plan Frequency: 5 Days per Week Comments: Plan to assess gait without assistive device next visit. May need to consider standing balance exercises. RECOMMENDATIONS: PT Discharge Recommendations PT Discharge Recommendations: Home with Assistance likely if continues to progress as expected Recommend ongoing assistance for: In and out of house;Transfers;Ambulation; Stairs Therapist: Susu Bee, PT, DPT Date: 01/29/2018 * Ángel Concepcion MD - 01/29/2018 10:00 AM CDT Formatting of this note may be different from the original. ENT Progress Note Name: Kelvin Zaldivar Today's Date: 01/29/2018 Admission Date: 01/24/2018 LOS: 5 days Assessment/Plan: Active Problems: Neck mass SVC (superior vena cava obstruction) Leukocytosis Hyponatremia Tobacco abuse Diagnosis unknown 42 yo male with neck mass and POD 5 tracheostomy - Changed on rounds this am to 6-0 cuffless shiley - From ENT standpoint ok to dc home. Otolaryngology team will sign off at this time. Call with any questions or concerns Subjective Kelvin Zaldivar is a 42 y.o. male. Doing well with trach. POD5. Medications Scheduled Meds: enoxaparin (LOVENOX) syringe 40 mg 40 mg Subcutaneous QDAY(21) nicotine (NICODERM CQ STEP 1) 21 mg/day patch 1 patch 1 patch Transdermal QDAY polyethylene glycol 3350 (MIRALAX) packet 17 g 1 packet Oral BID senna/docusate (SENOKOT-S) solution 10 mL 10 mL Per NG tube BID Continuous Infusions: PRN and Respiratory Meds:albuterol 0.5% Q6H PRN, fentaNYL citrate PF Q3H PRN, ipratropium bromide Q6H PRN, LORazepam (ATIVAN) injection Q4H PRN, magnesium sulfate PRN AND Magnesium DAILY AM AND Notify Physician Ongoing, ondansetron (ZOFRAN) IV Q6H PRN, oxyCODONE/acetaminophen Q4H PRN, pancrelipase 20,000 Units/ sodium bicarbonate 650 mg(#) PRN (Capacitor Assembler from Rx), potassium chloride SR PRN OR potassium chloride PRN, sodium phosphate IVPB PRN (Capacitor Assembler from Rx) AND Phosphorus DAILY AM AND Notify Physician Ongoing, thrombin PRN Review of Systems: All other systems reviewed and are negative. Objective: Vital Signs: Last Filed Vital Signs: 24 Hour Range BP: 140/74 (01/29 160) Temp: 36.8 C (98.3 F) (01/29 1607) Pulse: 98 (01/29 160) Respirations: 18 PER MINUTE (01/29 1305) SpO2: 96 % (01/29 160) O2 Delivery: Trach Shield (01/29 160) SpO2 Pulse: 118 (01/29 160) BP: (114-140)/(70-83) Temp: [36.7 C (98 F)-38 C (100.4 F)] Pulse: [92-110] Respirations: [18 PER MINUTE-20 PER MINUTE] SpO2: [93 %-98 %] O2 Delivery: Trach Shield Intensity Pain Scale 0-10 (Pain 1): 5 (01/29/18 1800) Vitals: 01/27/18 0500 01/28/18 0500 01/29/18 0529 Weight: 73.3 kg (161 lb 9.6 oz) 76.2 kg (167 lb 15.9 oz) 76.3 kg (168 lb 3.4 oz ) Intake/Output Summary: (Last 24 hours) Intake/Output Summary (Last 24 hours) at 01/29/18 1908 Last data filed at 01/29/18 1607 Gross per 24 hour Intake 2370 ml Output 710 ml Net 1660 ml Stool Occurrence: 1 Physical Exam NAD trach sutured with 2-0 silk, secure no erythema cuff down Trach changed on rounds. See separate procedure note. (SEPARATE PROCEDURE) Tracheostomy Tube Exchange: After verbal consent was obtained, the patient was laid supine with the neck slightly extended. All existing ties and sutures were removed and the patient' s trachestomy tube was removed. The stoma was suctioned and cleaned and found to be patent. A 6-0 Shiley uncuffed tracheostomy tube was then inserted into the stoma with the obturator in place. The obturator was removed and the inner cannula placed. Soft ties were used to secure the new tracheostomy tube. The patient was returned to a comfortable position. The patient tolerated the procedure without complication. Lab Review 24-hour labs: Results for orders placed or performed during the hospital encounter of (from the past 24 hour(s)) MAGNESIUM Collection Time: 01/29/18 4:07 AM Result Value Ref Range Magnesium 2.0 1.6 - 2.6 mg/dL PHOSPHORUS Collection Time: 01/29/18 4:07 AM Result Value Ref Range Phosphorus 4.4 (H) 2.0 - 4.0 MG/DL COMPREHENSIVE METABOLIC PANEL Collection Time: 01/29/18 4:07 AM Result Value Ref Range Sodium 134 (L) 137 - 147 MMOL/L Potassium 4.2 3.5 - 5.1 MMOL/L Chloride 98 98 - 110 MMOL/L Glucose 112 (H) 70 - 100 MG/DL Blood Urea Nitrogen 22 7 - 25 MG/DL Creatinine 0.74 0.4 - 1.24 MG/DL Calcium 9.3 8.5 - 10.6 MG/DL Total Protein 7.0 6.0 - 8.0 G/DL Total Bilirubin 0.4 0.3 - 1.2 MG/DL Albumin 3.4 (L) 3.5 - 5.0 G/DL Alk Phosphatase 94 25 - 110 U/L AST (SGOT) 16 7 - 40 U/L CO2 29 21 - 30 MMOL/L ALT (SGPT) 14 7 - 56 U/L Anion Gap 7 3 - 12 eGFR Non >60 >60 mL/min eGFR >60 >60 mL/min CBC AND DIFF Collection Time: 01/29/18 4:07 AM Result Value Ref Range White Blood Cells 17.5 (H) 4.5 - 11.0 K/UL RBC 4.29 (L) 4.4 - 5.5 M/UL Hemoglobin 13.1 (L) 13.5 - 16.5 GM/DL Hematocrit 38.3 (L) 40 - 50 % MCV 89.3 80 - 100 FL MCH 30.5 26 - 34 PG MCHC 34.1 32.0 - 36.0 G/DL RDW 13.8 11 - 15 % Platelet Count 220 150 - 400 K/UL MPV 7.7 7 - 11 FL Neutrophils 87 (H) 41 - 77 % Lymphocytes 4 (L) 24 - 44 % Monocytes 7 4 - 12 % Eosinophils 2 0 - 5 % Basophils 0 0 - 2 % Absolute Neutrophil Count 15.20 (H) 1.8 - 7.0 K/UL Absolute Lymph Count 0.60 (L) 1.0 - 4.8 K/UL Absolute Monocyte Count 1.30 (H) 0 - 0.80 K/UL Absolute Eosinophil Count 0.30 0 - 0.45 K/UL Absolute Basophil Count 0.10 0 - 0.20 K/UL MISCELLANEOUS SURGICAL PATHOLOGY REFERENCE LAB TEST Collection Time: 01/29/18 10:00 AM Result Value Ref Range Test NUT BU IHC Reference Lab PERFORMED AT [facility] [employer] Results Ref Lab RESULTS WILL BW REPORTED IN AN ADDENDUM Specimen Mail SLIDES [id number] Point of Care Testing (Last 24 hours) Glucose: (!) 112 (01/29/18 0407) Radiology and other Diagnostics Review: No pertinent radiology. Ángel Concepcion MD Pager [phone] * Gabo Ny MD - 01/29/2018 8:18 AM CDT Formatting of this note may be different from the original. Critical Care Progress Note Kelvin Zaldivar Today's Date: 01/29/2018 Admission Date: 01/24/2018 LOS: 5 days Active Problems: Neck mass SVC (superior vena cava obstruction) Leukocytosis Hyponatremia Tobacco abuse Diagnosis unknown Assessment/Plan: Hospital Course: Kelvin Zaldivar is a 42 y.o. male with a PMH of tobaccoism with ~30 pack year hx. About 3w ago developed dysphagia & voice hoarseness; evaluated by ENT in [place] who noted b/l paralyzed vocal cords. CT neck showed large R sided mass. CT c/a/p showed infiltrating mass involving the mediastinum, subcarinal & hilar regions that is narrowing the trachea as well as encompassing the pulm artery & ascending aorta. ENT placed a trach on 01/24 but were unable to completely bypass the area of narrowing. FNA was performed by IR on 01/24 w/ pathology pending; onc / rad-onc following & awaiting results. MRI brain 01/22 was normal. Some bleeding around trach site that was managed w/ thrombin spray; since resolved. Stable for tx to the floor. 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 Mass partially encases the ascending aorta & almost completely encases the main pulmonary artery. The trachea is also encompassed & is narrowed laterally. Trachea is narrowed to ~ 6mm at the level of clavicular heads. Small R pleural effusion. Sclerotic foci in several upper thoracic vertebral bodies, suspicious for metastatic disease - MRI brain 01/22 (OSH) - unremarkable - s/p tracheostomy 01/24 --> The trach does not pass through the area of compression - trach changed to cuff less by ENT on 01/29 - core bx of neck mass 01/24 - path in process - TECHNOLOGY ASSISTANT following - TS 30% Plan - onc & rad-onc following; awaiting final path Post-Op Bleeding (resolved) - occurred on 01/26 around trach site, no blood noted w/ suctioning --> managed w / thrombin spray - per ENT if re-bleeds use afrin soaked 4x4 or thrombin spray - continue VTE ppx Tobaccoism ~30 pack/yr hx - some emphysematous changes on CT - continues to smoke ~1.5 packs/day - Nicotine patch - smoking cessation counseling CV - HR 90s & SBP ~110s GI - has corpak + TFs - last BM 01/25 - senna/colace - increase miralax to bid RENAL - Cr 0.74 - IO: 2.4 / inacurate Hyponatremia - Na 134 - Alfredo 146 & uOsmo 847 --> ADH dependent - TSH 2.0 & random cortisol 26 ID Leukocytosis - likely r/t neck mass - WBC 17.5; Tmax 38.0 - CXR w/ new R medial lung based medial infiltrate --> monitor - BC 3/30 - NGTD - UA 01/24 - bland - PCT 01/24 - 0.06 - no abx Prophylaxis Review: Lines: Peripheral Line Tubes: trach IVF: S/L Electrolytes: Reviewed and replaced as needed. Diet: No Insulin: No Urinary Catheter: No VTE ppx: lovenox; SCDs GI ppx: no indication PT/OT: Yes Code status: Full Code Disposition: Remains stable for tx to the floor. Vince Snider APRN Pulm/Critical Care Pager [phone] 01/29/2018 M2 team pager (2nd call/nights) [phone] __ Subjective: Kelvin Zaldivar is a 42 y.o. male who is resting in bed this AM and continues to have some pain to the trach site but no SOB or other focal complaint. ROS: Denies: CP, SOB, cough, N/V, C/D and rash. Objective: Medications: Scheduled Meds: enoxaparin (LOVENOX) syringe 40 mg 40 mg Subcutaneous QDAY(21) nicotine (NICODERM CQ STEP 1) 21 mg/day patch 1 patch 1 patch Transdermal QDAY polyethylene glycol 3350 (MIRALAX) packet 17 g 1 packet Oral BID senna/docusate (SENOKOT-S) solution 10 mL 10 mL Per NG tube BID Continuous Infusions: PRN and Respiratory Meds:albuterol 0.5% Q6H PRN, fentaNYL citrate PF Q3H PRN, ipratropium bromide Q6H PRN, LORazepam (ATIVAN) injection Q4H PRN, magnesium sulfate PRN AND Magnesium DAILY AM AND Notify Physician Ongoing, ondansetron (ZOFRAN) IV Q6H PRN, oxyCODONE/acetaminophen Q4H PRN, pancrelipase 20,000 Units/ sodium bicarbonate 650 mg(#) PRN (Capacitor Assembler from Rx), potassium chloride SR PRN OR potassium chloride PRN, sodium phosphate IVPB PRN (Capacitor Assembler from Rx) AND Phosphorus DAILY AM AND Notify Physician Ongoing, thrombin PRN Vital Signs: Last Filed Vital Signs: 24 Hour Range BP: 118/81 (01/30 400) Temp: 37.1 C (98.8 F) (01/30 400) Pulse: 92 (01/30 400) Respirations: 19 PER MINUTE (01/30 400) SpO2: 96 % (01/29 0545) O2 Delivery: Trach Shield (01/30 400) SpO2 Pulse: 92 (01/30 400) BP: (117-138)/(74-88) Temp: [37.1 C (98.8 F)-38 C (100.4 F)] Pulse: [92-110] Respirations: [18 PER MINUTE-20 PER MINUTE] SpO2: [92 %-98 %] O2 Delivery: Trach Shield Intensity Pain Scale 0-10 (Pain 1): 6 (01/29/18 0245) Vitals: 01/27/18 0500 01/28/18 0500 01/29/18 0529 Weight: 73.3 kg (161 lb 9.6 oz) 76.2 kg (167 lb 15.9 oz) 76.3 kg (168 lb 3.4 oz ) Intake/Output Summary: (Last 24 hours) Intake/Output Summary (Last 24 hours) at 01/29/18 0818 Last data filed at 01/29/18 0400 Gross per 24 hour Intake 2425 ml Output 350 ml Net 2075 ml Physical Exam: General: Alert, cooperative, no distress, appears stated age Head: Normocephalic, without obvious abnormality, atraumatic Eyes: Conjunctivae/corneas clear. Mouth/throat: Moist mucous membranes, Neck: Supple, trachea midline, R sided neck mass, TTP; cuff less trach in place to TS Lungs: Clear to auscultation bilaterally; no wheeze Heart: Regular rate and rhythm, S1, S2 normal, no murmur appreciated Abdomen: Soft, non-tender. Bowel sounds normal. Extremities: Extremities normal, atraumatic, no cyanosis or edema Pulses: 2+ and symmetric, all extremities Skin: No rashes or lesions noted Neurologic: A&O Artificial airway: Tracheostomy Tube to Laboratory: LABS: Recent Labs 01/27/18 03501/28/18 03501/29/18 0407 NA 132* 134* 134* K 4.2 4.2 4.2 CL 98 98 98 CO2 27 28 29 GAP 7 8 7 BUN 15 20 22 CR 0.82 0.76 0.74 GLU 114* 106* 112* CA 9.6 9.5 9.3 ALBUMIN 3.8 3.5 3.4* MG 1.9 2.0 2.0 PO4 2.8 3.8 4.4* Recent Labs 01/27/18 0357 01/28/18 03501/29/18 0407 WBC 20.0* 17.7* 17.5* HGB 13.0* 12.9* 13.1* HCT 39.6* 37.7* 38.3* PLTCT 197 211 220 AST 12 16 16 ALT 5* 11 14 ALKPHOS 100 103 94 Estimated Creatinine Clearance: 141.8 mL/min (based on SCr of 0.74 mg/dL). Vitals: 01/27/18 0500 01/28/18 0500 01/29/18 0529 Weight: 73.3 kg (161 lb 9.6 oz) 76.2 kg (167 lb 15.9 oz) 76.3 kg (168 lb 3.4 oz ) No results for input(s): PHART, PO2ART in the last 72 hours. Invalid input(s): PC02A Radiology and Other Diagnostic Procedures Review: Reviewed ATTESTATION I personally performed the torres portions of the E/M visit, discussed case with Nurse Practitioner and concur with documentation of history, physical exam, assessment, and treatment plan unless otherwise noted. Staff name: Gabo Ny MD Date: 01/29/2018 * Sonali Espino RN - 01/29/2018 7:39 AM CDT 0730: Assumed care of patient at this time, bedside safety check completed, pt resting quietly in bed. 0800: Assessment completed per ICU Flowsheet, VSS per pt trend, pt A&O x4, no reports of pain a this time, no gtts infusing. Updated on plan of care for this shift, not reporting any questions or concerns at this time. 1200: Pt sitting up in the chair, VSS per pt trend, pt not reporting pain at this. Pt states he feels overwhelmed, RN discussed feelings with pt and pt states he feels better after talking. 1600: Pt resting in bed, not reporting pain at this time, VSS per pt trend. Frequent tracheal suctioning performed, pt stating he is more comfortable now that the trach has been changed. * Tara Trejo, JOSE G - 01/29/2018 7:21 AM CDT 1935 Assumed pt care at this time. Bedside safety check performed, plan of care reviewed. 2000 Physical assessment complete, please see ICU flowsheet for details. Pt alert and oriented x4, on trach shield 21% tolerating well. VSS per trends. Will continue to monitor. 0400 VSS per trends, AM labs drawn and sent. 0700 ENT at bedside to exchange trach to a 6.0 cuffless trach. * Nayana Meeks MS,CCC-TECHNOLOGY ASSISTANT - 01/28/2018 3:00 PM CDT SPEECH-LANGUAGE PATHOLOGY DAILY TREATMENT NOTE Patient seen 1x this date. Documentation reflects all daily treatment sessions. SUMMARY OF THERAPY SESSION: pt seen for ongoing speaking valve/AAC assessment/ treatment. Pt with poor tolerance of speaking valve, tolerating less than 5 seconds over 2 trials. Anticipate poor tolerance due to known mass below level of trach, as well as secretions and presence of cuffed trach (though cuff deflated prior to placement). Pt functionally communicating wants/needs/ideas via written expression. Question if as secretions are decreased and after trach change, pt may better tolerate speaking valve placement. Will continue to follow. RECOMMENDATIONS Speaking valve placement trials with TECHNOLOGY ASSISTANT only Assist pt with other means of communication (e.g. Writing) TECHNOLOGY ASSISTANT will follow for ongoing speaking valve/AAC evaluation. Will update dc recommendations upon completion of additional assessment Goal : Pt will participate in ongoing assessment of speaking valve, given moderate cues to participate. Met Comment: see above Continue to address this goal Goal : Pt will tolerate speaking valve placement for 2 minutes with stable physiologic parameters. Not met Comment: pt tolerated for less than 5 seconds, over 2 trials. Continue to address this goal PLAN / RECOMMENDATIONS: Continue treatment 3x/week and Patient would benefit from further speech therapy post acute hospitalization. Therapist: Nayana Meeks MS,CCC-TECHNOLOGY ASSISTANT [phone] Date: 01/29/2018 * Radha Torres RN - 01/28/2018 11:57 AM CDT Assumed pt care at this time. Bedside safety check performed, plan of care reviewed. Pt visiting with family/friends in room, no needs at this time. * Susu Bee, PT - 01/28/2018 9:03 AM CDT PHYSICAL THERAPY PROGRESS NOTE SUBJECTIVE: Subjective Significant hospital events: Transferred from [facility] 01/24/[address] revealing large mass compressing airway, aortic arch and pulmonary artery. S/P tracheostomy, remains high risk airway (discussed briefly with team 01/27/18). 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 BED MOBILITY/TRANSFERS: Bed Mobility/Transfers Bed Mobility: Supine to Sit: Standby Assist;Head of Bed Elevated Transfer Type: Sit to/from Stand Transfer: Assistance Level: Standby Assist Transfer: Assistive Device: (RoWalker) End Of Activity Status: Up in Chair;Nursing Notified;Instructed Patient to Request Assist with Mobility;Instructed Patient to Use Call Light GAIT: Gait Gait Distance: 65 feet, seated rest on RoWalker, another 170 feet Gait: Assistance Level: Minimal Assist (contact guard as precaution) Gait: Assistive Device: (RoWalker) Gait: Descriptors: Pace: Slow (narrow base of support, right LE scissoring a few times, pat) Improved posture this date, patient relying less on support of RoWalker with verbal cues and demonstration for posture. Patient ambulated in hospital socks rather than boots this date. He denied dizziness and nausea throughout this visit. Patient did report mild increased work of breathing at 65 feet and thus took a seated rest break and recovered quickly without further complaints. SpO2 90% or greater. EDUCATION: Education Persons Educated: Patient/Family Patient Barriers To Learning: Impaired Communication (mouths words, written communication) Teaching Methods: Verbal Instruction;Demonstration Patient Response: Return Demonstration (communicates understanding) Topics: Plan/Goals of PT Interventions;Mobility Progression;Safety Awareness;Up with Assist Only;Importance of Increasing Activity;Use of Assistive Device/ Orthosis (up to chair with nursing staff) ASSESSMENT/PROGRESS: Assessment/Progress Impaired Mobility Due To: Decreased Strength;Impaired Balance;Decreased Activity Tolerance;Deconditioning;Medical Status Limitation Assessment/Progress: Should Improve w/ Continued PT AM-PAC 6 Clicks Basic Mobility Inpatient Turning from your back to your side while in a flat bed without using bed rails : A Little Moving from lying on your back to sitting on the side of a flatbed without using bedrails : A Little Moving to and from a bed to a chair (including a wheelchair): A Little Standing up from a chair using your arms (e.g. wheelchair, or bedside chair): A Little To walk in hospital room: A Little Climbing 3-5 steps with a railing: A Lot Raw Score: 17 Standardized (T-scale) Score: 39.67 Basic Mobility CMS 0-100%: 43.83 CMS G Code Modifier for Basic Mobility: CK GOALS: Goals Goal Formulation: With Patient Time For Goal Achievement: 7 days Pt Will Go Supine To/From Sit: w/ Stand By Assist Pt Will Transfer Sit to Stand: w/ Stand By Assist, Met Pt Will Ambulate: Greater than 200 Feet, w/ Walker, w/ Stand By Assist Pt Will Go Up / Down Stairs: 1-2 Stairs, w/ Stand By Assist PLAN: Plan Treatment Interventions: Mobility Training;Strengthening;Balance Activities; Endurance Training Plan Frequency: 5 Days per Week Comments: Plan to continue to increase gait quality and distance as patient able to tolerate. RECOMMENDATIONS: PT Discharge Recommendations PT Discharge Recommendations: Inpatient Setting early recommendation but will need to make final recommendations once further hospital course is better understood (awaiting final pathology) Recommend ongoing assistance for: In and out of house;Transfers;Ambulation; Stairs Therapist: Susu Bee, PT, DPT Date: 01/28/2018 * Hilary Acuña, RN - 01/28/2018 8:00 AM CDT Pt care assumed at 0730 and physical assessment complete. Pt alert and oriented x 4 and appropriate. VS stable and WDL. He reports continued mild right shoulder /neck pain but declines pain medication at this time. See flow sheet for complete VS/assessment findings. Will continue to monitor. * Gabo Ny MD - 01/28/2018 7:11 AM CDT Formatting of this note may be different from the original. Critical Care Progress Note Kelvin Zaldivar Today's Date: 01/28/2018 Admission Date: 01/24/2018 LOS: 4 days Active Problems: Neck mass SVC (superior vena cava obstruction) Leukocytosis Hyponatremia Tobacco abuse Diagnosis unknown Assessment/Plan: Hospital Course: Kelvin Zaldivar is a 42 y.o. male with a PMH of tobaccoism with ~30 pack year hx. About 3w ago developed dysphagia & voice hoarseness; evaluated by ENT in [place] who noted b/l paralyzed vocal cords. CT neck showed large R sided mass. CT c/a/p showed infiltrating mass involving the mediastinum, subcarinal & hilar regions that is narrowing the trachea as well as encompassing the pulm artery & ascending aorta. ENT placed a trach on 01/24 but were unable to completely bypass the area of narrowing. FNA was performed by IR on 01/24 w/ pathology pending; onc / rad-onc following & awaiting results. MRI brain 01/22 was normal. Some bleeding around trach site that was managed w/ thrombin spray; since resolved. Stable for tx to the floor. 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 Mass partially encases the ascending aorta & almost completely encases the main pulmonary artery. The trachea is also encompassed & is narrowed laterally. Trachea is narrowed to ~ 6mm at the level of clavicular heads. Small R pleural effusion. Sclerotic foci in several upper thoracic vertebral bodies, suspicious for metastatic disease - MRI brain 01/22 ([facility]) - unremarkable - s/p tracheostomy 01/24 --> The trach does not pass through the area of compression. - core bx of neck mass 01/24 - path in process - TECHNOLOGY ASSISTANT following - TS 30% Plan - onc & rad-onc following; awaiting final path Post-Op Bleeding (resolved) - occurred on 01/26 around trach site, no blood noted w/ suctioning --> managed w / thrombin spray - per ENT if re-bleeds use afrin soaked 4x4 or thrombin spray - continue VTE ppx Tobaccoism ~30 pack/yr hx - some emphysematous changes on CT - continues to smoke ~1.5 packs/day - Nicotine patch - smoking cessation counseling CV - HR 90s-100s & SBP ~130s GI - has corpak + TFs - last BM 01/25 - increase senna/colace & add miralax qd RENAL - Cr 0.76 - IO: 1.7L / 850cc Hyponatremia - Na 134 - Alfredo 146 & uOsmo 847 --> ADH dependent - TSH 2.0 & random cortisol 26 ID Leukocytosis - likely r/t neck mass - WBC 17.7; afebrile - CXR w/ new R medial lung based medial infiltrate --> monitor - BC 01/24 - NGTD - UA 01/24 - bland - PCT 01/24 - 0.06 - no abx Prophylaxis Review: Lines: Peripheral Line Tubes: trach IVF: S/L Electrolytes: Reviewed and replaced as needed. Diet: No Insulin: No Urinary Catheter: No VTE ppx: lovenox; SCDs GI ppx: no indication PT/OT: Yes Code status: Full Code Disposition: Stable for tx to the floor. Vince Snider APRN Pulm/Critical Care Pager [phone] 01/28/2018 M2 team pager (2nd call/nights) [phone] __ Subjective: Kelvin Zaldivar is a 42 y.o. male who is resting in bed this AM and continues to feel ok. Some pain to the trach site but no SOB. ROS: Denies: CP, SOB, cough, N/V, C/D and rash. Objective: Medications: Scheduled Meds: enoxaparin (LOVENOX) syringe 40 mg 40 mg Subcutaneous QDAY(21) nicotine (NICODERM CQ STEP 1) 21 mg/day patch 1 patch 1 patch Transdermal QDAY senna/docusate (SENOKOT-S) solution 5 mL 5 mL Oral BID Continuous Infusions: PRN and Respiratory Meds:albuterol 0.5% Q6H PRN, fentaNYL citrate PF Q3H PRN, ipratropium bromide Q6H PRN, LORazepam (ATIVAN) injection Q4H PRN, magnesium sulfate PRN AND Magnesium DAILY AM AND Notify Physician Ongoing, ondansetron (ZOFRAN) IV Q6H PRN, oxyCODONE/acetaminophen Q4H PRN, oxymetazoline PRN, pancrelipase 20,000 Units/ sodium bicarbonate 650 mg(#) PRN (Capacitor Assembler from Rx), potassium chloride SR PRN OR potassium chloride PRN, sodium phosphate IVPB PRN (Capacitor Assembler from Rx) AND Phosphorus DAILY AM AND Notify Physician Ongoing, thrombin PRN Vital Signs: Last Filed Vital Signs: 24 Hour Range BP: 141/79 (01/29 400) Temp: 37.1 C (98.8 F) (01/29 400) Pulse: 98 (01/29 400) Respirations: 22 PER MINUTE (01/29 400) SpO2: 97 % (01/29 400) O2 Delivery: Trach Shield (01/29 400) SpO2 Pulse: 98 (01/29 400) BP: (134-147)/(79-91) Temp: [36.9 C (98.5 F)-37.7 C (99.8 F)] Pulse: [98-105] Respirations: [13 PER MINUTE-25 PER MINUTE] SpO2: [95 %-98 %] O2 Delivery: Trach Shield Intensity Pain Scale 0-10 (Pain 1): 5 (01/28/18 0000) Vitals: 01/24/18 1259 01/27/18 0500 01/28/18 0500 Weight: 79.1 kg (174 lb 6.1 oz) 73.3 kg (161 lb 9.6 oz) 76.2 kg (167 lb 15.9 oz ) Intake/Output Summary: (Last 24 hours) Intake/Output Summary (Last 24 hours) at 01/28/18 0712 Last data filed at 01/28/18 0400 Gross per 24 hour Intake 1680 ml Output 850 ml Net 830 ml Physical Exam: General: Alert, cooperative, no distress, appears stated age Head: Normocephalic, without obvious abnormality, atraumatic Eyes: Conjunctivae/corneas clear. Mouth/throat: Moist mucous membranes, Neck: Supple, trachea midline, R sided neck mass, TTP; trach in place w/ sutures w/ dried blood around; on TS Lungs: Clear to auscultation bilaterally; no wheeze Heart: Regular rate and rhythm, S1, S2 normal, no murmur appreciated Abdomen: Soft, non-tender. Bowel sounds normal. Extremities: Extremities normal, atraumatic, no cyanosis or edema Pulses: 2+ and symmetric, all extremities Skin: No rashes or lesions noted Neurologic: A&O Artificial airway: Tracheostomy Tube to TS Laboratory: LABS: Recent Labs 01/26/1810401/27/1835601/28/18 035 NA 132* 132* 134* K 3.8 4.2 4.2 CL 97* 98 98 CO2 23 27 28 GAP 12 7 8 BUN 22 15 20 CR 0.95 0.82 0.76 GLU 107* 114* 106* CA 9.6 9.6 9.5 ALBUMIN 4.0 3.8 3.5 MG 1.9 1.9 2.0 PO4 3.2 2.8 3.8 Recent Labs 01/26/1810401/27/18 0357 01/28/18 035 WBC 22.8* 20.0* 17.7* HGB 13.5 13.0* 12.9* HCT 40.6 39.6* 37.7* PLTCT 210 197 211 INR 1.3* -- -- PTT 29.7 -- -- AST 12 12 16 ALT 8 5* 11 ALKPHOS 108 100 103 Estimated Creatinine Clearance: 137.9 mL/min (based on SCr of 0.76 mg/dL). Vitals: 01/24/18 1259 01/27/18 0500 01/28/18 0500 Weight: 79.1 kg (174 lb 6.1 oz) 73.3 kg (161 lb 9.6 oz) 76.2 kg (167 lb 15.9 oz ) No results for input(s): PHART, PO2ART in the last 72 hours. Invalid input(s): PC02A Radiology and Other Diagnostic Procedures Review: Reviewed Staff name: Vince Snider APRN Date: 01/28/2018 ATTESTATION ATTESTATION I personally performed the torres portions of the E/M visit, discussed case with Nurse Practitioner and concur with documentation of history, physical exam, assessment, and treatment plan unless otherwise noted. Patient doing fairly well today. No specific complaints. No further bleeding from trach site. Platelets and INR OK. ENT following, planning trach change on POD # 5. Await special stains on core biopsy taken from right supraclavicular mass last week - hopeful to know something by this evening. Oncology and Radiation Oncology both consulted; treatment plan pending tissue diagnosis. Continue TFs. PT/OT. Vitals stable, on 21% TS. OK for transfer to the floor. Staff name: Gabo Ny MD Date: 01/28/2018 * Tara Trejo, JOSE G - 01/28/2018 5:30 AM CDT 1930 Assumed pt care at this time. Bedside safety check performed, plan of care reviewed. 1999 Physical assessment complete, please see ICU flowsheet for details. VSS per trends. Will continue to monitor. 2014 Pt Fiance at bedside asked RN "what a malignant tumor meant and if there was a doctor they could ask questions to, because the doctor they talked to earlier today did not explain his diagnosis". RN apologized for their questions not being answered and for any frustrations they had at this time. RN notified Dr. Piña of pt and family concerns, and requested he come to the bedside. 2029 Dr. Piña to bedside with RN to explain pt diagnosis of malignant tumor and answer questions that the pt and family had at this time. 0400 VSS per trends, AM labs drawn and sent. No other changes from initial assessment. Will continue to monitor. * Hilda Dong, JOSE G - 01/27/2018 6:39 PM CDT 0730: Assumed pt care at this time. Bedside safety check performed, plan of care reviewed. 0745: Vince Snider APRN at bedside. Discussed held lovenox dose last night d/ t bleeding risk, will continue scheduled dose tonight. Tube feeds running at 20 ml/hr d/t nurse communication, will now increase tube feeds per diet order. 0800: Physical assessment complete, please see ICU flowsheet for details. VSS per pt trends on 35% trach shield. Pt AOx4, able to mouth words and nod head appropriately. Pt reports R shoulder pain, medication given see eMAR for details. Will continue to monitor. 1010: Pt downgraded to Med/Surg status at this time. 1045: Pt up with PT, reports nausea. PRN IV zofran given, see eMAR. Tube feeds held at this time. 1500: Pt reports increased nausea with tube feeds at 40ml/hr. Tube feeds held at this time. Pt HR 110-120's, face flushed and coughing strongly and repeatedly. Other VS per pt trends Pt reports having difficulty clearing secretions from trach. Moderate amount of thick blood-tinged secretions suctioned from trach. After resting, pt HR returns to low 100's and is breathing steadily, reports breathing is easier. Pt mouths that he just wants to rest. Reports pain 6/10 R shoulder pain, 1 tablet percocet given at this time see eMAR. 1600: VSS per pt trends. 1630: Tube feeds restarted at 40 ml/hr. 1700: Pt reports continued anxiety, requests PRN ativan, see eMAR. 30 minutes after ativan dose, pt resting comfortably in room. * Lavinia Baker OT - 01/27/2018 1:54 PM CDT OCCUPATIONAL THERAPY OT orders received and chart reviewed. Observed patient mobilizing with PT on this date and was limited by endurance and nausea/vomiting. Discussed with PT on this date. Pt is capable of working on endurance with PT. Will remain on pt' s case and will monitor need for OT interventions while he remains in hospital setting. Lavinia Baker OTR/L 6000 * Nayana Meeks, MS,CCC-TECHNOLOGY ASSISTANT - 01/27/2018 1:16 PM CDT SPEECH-LANGUAGE PATHOLOGY TRACH/MAY COMM ASSESSMENT EVALUATION SUMMARY Eval Summary* Summary: A speaking valve/AAC evaluation was completed this date. Pt with poor tolerance of speaking valve this date, likely due to secretions and presence of cuffed trach (though cuff deflated prior to placement), as well as possibly associated with presence of mass. Pt is able to functionally communicate wants/ needs/ideas via written expression. Anticipate as secretions are decreased and after trach change, pt may better tolerate speaking valve placement. Please see below. RECOMMENDATIONS Speaking valve placement with TECHNOLOGY ASSISTANT only Assist pt with other means of communication (e.g. Writing) TECHNOLOGY ASSISTANT will follow for ongoing speaking valve/AAC evaluation Prognosis: Fair Recommendations: Speaking Valve Trials w/ Speech Pathology Only Plan*: Continue Treatment __x/week (Comment)., Patient Would Benefit from Further Speech Therapy Post Acute Hospitalization. (2-3x/wk) Results Reported to Physician: Yes (via EMR) Tracheostomy* Tracheostomy: Yes Trach Type: Shiley 6 Trach Cuff: Yes, Deflated Ventilator: Trach Shield Respiratory Status* Oral Secretions: Minimal Tracheal Secretions: Suctioned by Staff (Moderate this date per RN) Oxygen Saturation: Stable Finger Occlusion* Comment: Finger occlusion completed x2. Unable to elicit voicing with finger occlusion. Significant plosion appreciated on voicing attempt. Speaking Valve* Speaking Valve Summary: Speaking valve placement for less than 5 seconds, 2x this session. pt unable to elicit voicing. Significant plosion appreciated upon doffing of valve. Poor tolerance of speaking valve anticipate secondary to presence of secretions, presence of cuff around trach (though deflated). WRITING SKILLS Comment*: Pt independence communicating wants/needs via written expression Objective* Relevant Med Background: Kelvin Zaldivar is a 42 y.o. 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 Then was seen by ENT in [place] who noted paralyzed vocal cords, CT neck showed large right sided mass & pt was sent to the ED in [place]. Underwent CT c/a/p w/ contrast showing infiltrating mass involving mediastinum, subcarinal & hilar regions b/l encompassing the pulm artery & ascending aorta as well as the trachea which is narrowed to ~6mm at level of clavicular heads. MRI brain was unremarkable. Pt transferred to for further management. Chest single view 01/27 Impressions: 1. Fullness of the katia and mediastinum which corresponds to adenopathy on the outside CT. 2. Development of right medial lung base mixed opacities which could represent atelectasis or pneumonia. Hearing: WFL Psychosocial Status: Willing and Cooperative to Participate Subjective* Pain: Patient has no complaint of pain Education* Persons Educated: Pt/Family Barriers To Learning: Impaired Communication Interventions: Family Educated, Staff Educated Teaching Methods: Verbal Topics: Speaking Valve Patient Response: Verbalized Understanding Goal Formulation: With Pt/Family Aug Comm/Trach Goals* Goal : Pt will participate in ongoing assessment of speaking valve, given moderate cues to participate. Goal : Pt will tolerate speaking valve placement for 2 minutes with stable physiologic parameters. Therapist: Nayana Meeks MS,CCC-TECHNOLOGY ASSISTANT [phone] Date: 01/27/2018 * Shen Shields, RT - 01/27/2018 12:14 PM CDT Formatting of this note may be different from the original. RESPIRATORY THERAPY ADULT PROTOCOL EVALUATION RESPIRATORY PROTOCOL PLAN Medications Albuterol/Ipratropium: Neb PRN Note: If indicated by protocol, medication orders will be placed by therapist. Procedures Deep Breathe & Cough: Discontinued Tracheostomy Suction: Q6h & PRN Oxygen/Humidity: O2 to keep SpO2 > 92% Monitoring: Pulse oximetry Q6h & PRN PATIENT EVALUATION RESULTS Chart Review * Pulmonary Hx: Smoking cessation < 8 weeks OR still smoking OR > 20 pack/yr hx (PEFR) OR occasional use of bronchodilator (AM) * Surgical Hx: General surgery (cough & sigh not affected) * Chest X-Ray: Infiltrates (AC) OR atelectasis (LE) OR pleural effusion OR rib fractures (LE) * PFT/Oxygenation: FEV1, PEFR 70-80% OR Pa02 70-80 RA OR Sp02 92-95% Patient Assessment * Respiratory Pattern: Regular pattern and rate OR good chest excursion with deep breathing * Breath Sounds: Clear apically, but diminished in bases (LE) OR CHF related crackles (02) (oximetry) * Cough / Sputum: Good effective cough OR occasional or minimal sputum OR thin sputum * Mental Status: Alert, oriented, cooperative * Activity Level: Ambulatory with assistance Priority Index Total Points: 9 Points * Priority Index: 1 PRIORITY INDEX GUIDELINES* Priority Points 1 0-9 points 2 9-18 points 3 > 18 points + Pulm Dx or Home Rx *Higher points indicate higher acuity. Therapist: Shen Shields, RT Date: 01/27/2018 Torres AC=Airway clearance AM=Aerosolized medication BA=Jet aerosol DB&C=Deep breathe & cough FEV1=Forced expiratory volume in first second) IC=Inspiratory capacity LE=Lung expansion MDI=Metered dose inhaler Neb=Nebulizer O2=Oxygen Oxim=Oximetry PEFR=Peak expiratory flow rate [employer]=Rapid Response Team * Susu eBe, PT - 01/27/2018 10:24 AM CDT PHYSICAL THERAPY ASSESSMENT SUBJECTIVE: Subjective Significant hospital events: Transferred from OSH 01/24/[address] revealing large mass compressing airway, aortic arch and pulmonary artery. S/P tracheostomy, remains high risk airway (discussed briefly with team 01/27/18). PMHx tobacco use Mental / Cognitive Status: Alert;Oriented;Cooperative;Tracheostomy Persons Present: Significant Other (OT and software validation technician at end of session to assist back to room) Pain: 4/10;Before activity;8/10;During activity;6/10;After activity Pain Location: Right;Shoulder;Neck Pain Description: Sharp Pain Interventions: Patient agrees to participate in therapy with modifications to session Comments: Patient reports increased pain with LE resting at side versus supported by platform on RoWalker. Patient denies need for pain meds at end of session, requests to wait to see if pain continues to settle down, discussed with RN. Comments: Trach Shield 35% FiO2. RT provided portable set-up for walk in hallway. 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 ROM: ROM ROM Position Assessed: Supine;Seated ROM Method: Active LE ROM: Bilateral;WFL STRENGTH: Strength Overall Strength: Generalized Weakness;No Focal Deficits Noted BED MOBILITY/TRANSFERS: Bed Mobility/Transfers Bed Mobility: Supine to Sit: Standby Assist;Head of Bed Elevated Bed Mobility: Sit to Supine: Minimal Assist;HOB Elevated;Assist with B LE Transfer Type: Sit to/from Stand Transfer: Assistance Level: To/From;Bed;Minimal Assist Transfer: Assistive Device: (RoWalker) End Of Activity Status: In Bed;Nursing Notified;Instructed Patient to Request Assist with Mobility;Instructed Patient to Use Call Light Comments: Patient initially agreeable to sit up in chair following ambulation, deferred after bout of nausea and increased pain with ambulation. GAIT: Gait Gait Distance: 90 feet Gait: Assistance Level: Minimal Assist Gait: Assistive Device: (RoWalker) Gait: Descriptors: Pace: Slow (narrow base of support) Comments: Patient wearing boots for walk in [place]. Activity Limited By: Complaint of Dizziness;Nausea Comments: Distance limited by sudden dizziness and nausea, patient assisted to seat on RoWalker. RN provided medication. VS stable. EDUCATION: Education Persons Educated: Patient/Family Patient Barriers To Learning: Impaired Communication (mouths words, written communication) Teaching Methods: Verbal Instruction;Demonstration Patient Response: Return Demonstration (communicates understanding) Topics: Plan/Goals of PT Interventions;Mobility Progression;Safety Awareness;Up with Assist Only;Importance of Increasing Activity (up to chair with nursing staff) ASSESSMENT/PROGRESS: Assessment/Progress Impaired Mobility Due To: Decreased Strength;Impaired Balance;Decreased Activity Tolerance;Deconditioning;Medical Status Limitation Assessment/Progress: Should Improve w/ Continued PT AM-PAC 6 Clicks Basic Mobility Inpatient Turning from your back to your side while in a flat bed without using bed rails : A Little Moving from lying on your back to sitting on the side of a flatbed without using bedrails : A Little Moving to and from a bed to a chair (including a wheelchair): A Little Standing up from a chair using your arms (e.g. wheelchair, or bedside chair): A Little To walk in hospital room: A Little Climbing 3-5 steps with a railing: Total Raw Score: 16 Standardized (T-scale) Score: 38.32 Basic Mobility CMS 0-100%: 47.12 CMS G Code Modifier for Basic Mobility: CK GOALS: Goals Goal Formulation: With Patient Time For Goal Achievement: 7 days Pt Will Go Supine To/From Sit: w/ Stand By Assist Pt Will Transfer Sit to Stand: w/ Stand By Assist Pt Will Ambulate: Greater than 200 Feet, w/ Walker, w/ Stand By Assist Pt Will Go Up / Down Stairs: 1-2 Stairs, w/ Stand By Assist PLAN: Plan Treatment Interventions: Mobility Training;Strengthening;Balance Activities; Endurance Training Plan Frequency: 5 Days per Week Plan to increase ambulation distance in halls prior to assessing gait without assistive device. RECOMMENDATIONS: PT Discharge Recommendations PT Discharge Recommendations: Inpatient Setting at this time, early recommendation Recommend ongoing assistance for: In and out of house;Transfers;Bed mobility; Ambulation;Stairs Therapist: Susu Bee, PT, DPT Date: 01/27/2018 * Winsome Guido APRN - 01/27/2018 9:03 AM CDT Formatting of this note may be different from the original. Oncology Consult Progress Note Name: Kelvin Zaldivar Today's Date: 01/27/2018 Admission Date: 01/24/2018 LOS: 3 days Assessment/Plan: Active Problems: Neck mass SVC (superior vena cava obstruction) Leukocytosis Hyponatremia Tobacco abuse Diagnosis unknown Neck Mass - Diff dx including lymphoma, germ cell, thyroid malignancy - Presented with hoarse/scratchy throat, dysphonia, noted a palpable right lower neck mass, progressive dyspnea - OSH CT chest- 10.8 cm mass extending from neck to chest, compressing airway involving his aortic arch, encompassing his aorta and pulmonary artery - ENT, CTS, Rad onc consulted - Current tobacco use- 1.5 pack/day 20 + years - LDH elevated at 367, Beta HCG (wnl) 1, AFP (wnl) 2 - Testicular exam w/o mass - 01/24/18: Bronchoscopy, tracheostomy - 01/14/18: IR core biopsy of right supraclavicular mass - Flow cytometry negative for evidence of lymphoma - Pathology: 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 Awaiting additional staining OSH Imaging: - CT neck: right supraclavicular mass (10.8 cm) no discrete thyroid mass - CT neck- infiltrative soft tissue mass, extends to right supraclavicular region, involving mediastinal subcarinal, hilar regions, trachea narrowed - MRI Donald- negative for evidence of mass [facility] Radiology Review (per verbal report) - Diffuse right neck adenopathy, with significant trachea narrowing, diffuse lower neck adenopathy, separate from thyroid (no discrete thyroid mass seen) - Hilar, mediastinal small right pleural effusion, liver lesions too small to characterized, enlarged retroperitoneal lymph nodes Plan - Discussed with patient findings of malignancy, awaiting further staining to determine primary malignancy. Hopeful additional stains to confirm histology will be available in next 24 hours. - Oncology will continue follow, recs to follow once diagnosis confirmed Patient seen and discussed with Dr. Nino Subjective Kelvin Zaldivar is a 42 y.o. male. No acute events overnight. Reports pain well controlled, denies any breathing difficulties at this time. Family at bedside. Medications Scheduled Meds: albuterol 0.5% (PROVENTIL; VENTOLIN) nebulizer solution 2.5 mg 2.5 mg Inhalation Q4H & PRN enoxaparin (LOVENOX) syringe 40 mg 40 mg Subcutaneous QDAY(21) ipratropium bromide (ATROVENT) 0.02 % nebulizer solution 0.5 mg 0.5 mg Inhalation Q4H & PRN nicotine (NICODERM CQ STEP 1) 21 mg/day patch 1 patch 1 patch Transdermal QDAY senna/docusate (SENOKOT-S) solution 5 mL 5 mL Oral BID Continuous Infusions: PRN and Respiratory Meds:fentaNYL citrate PF Q3H PRN, LORazepam (ATIVAN) injection Q4H PRN, magnesium sulfate PRN AND Magnesium DAILY AM AND Notify Physician Ongoing, ondansetron (ZOFRAN) IV Q6H PRN, oxyCODONE/ acetaminophen Q4H PRN, oxymetazoline PRN, pancrelipase 20,000 Units/ sodium bicarbonate 650 mg(#) PRN (Capacitor Assembler from Rx), potassium chloride SR PRN OR potassium chloride PRN, sodium phosphate IVPB PRN (Capacitor Assembler from Rx) AND Phosphorus DAILY AM AND Notify Physician Ongoing, thrombin PRN Objective Vital Signs: Last Filed Vital Signs: 24 Hour Range BP: 145/85 (01/28 800) Temp: 36.9 C (98.5 F) (01/28 800) Pulse: 104 (01/28 800) Respirations: 19 PER MINUTE (01/28 800) SpO2: 97 % (01/28 800) O2 Delivery: Trach Shield (01/28 800) SpO2 Pulse: 104 (01/28 800) BP: (117-147)/(75-93) Temp: [36.8 C (98.2 F)-37.2 C (99 F)] Pulse: [100-108] Respirations: [11 PER MINUTE-20 PER MINUTE] SpO2: [91 %-98 %] O2 Delivery: Trach Shield Intensity Pain Scale 0-10 (Pain 1): 5 (01/27/18 08) Vitals: 01/24/18 0048 01/24/18 1259 01/27/18 0500 Weight: 79.1 kg (174 lb 6.1 oz) 79.1 kg (174 lb 6.1 oz) 73.3 kg (161 lb 9.6 oz) Intake/Output Summary: (Last 24 hours) Intake/Output Summary (Last 24 hours) at 01/27/18 0904 Last data filed at 01/27/18 0800 Gross per 24 hour Intake 1379 ml Output 1425 ml Net -46 ml Stool Occurrence: 1 Review of Systems: A 14 point review of systems was negative except for: Constitutional: positive for fatigue Physical Exam General appearance: Alert, cooperative, no distress Head: Normocephalic, atraumatic Eyes: PERRL Neck: Tracheostomy Lungs: Non-labored Heart: regular rate and rhythm Extremities: No edema Neurologic: No focal deficits Lab Review 24-hour labs: Results for orders placed or performed during the hospital encounter of (from the past 24 hour(s)) MAGNESIUM Collection Time: 01/27/18 3:57 AM Result Value Ref Range Magnesium 1.9 1.6 - 2.6 mg/dL PHOSPHORUS Collection Time: 01/27/18 3:57 AM Result Value Ref Range Phosphorus 2.8 2.0 - 4.0 MG/DL COMPREHENSIVE METABOLIC PANEL Collection Time: 01/27/18 3:57 AM Result Value Ref Range Sodium 132 (L) 137 - 147 MMOL/L Potassium 4.2 3.5 - 5.1 MMOL/L Chloride 98 98 - 110 MMOL/L Glucose 114 (H) 70 - 100 MG/DL Blood Urea Nitrogen 15 7 - 25 MG/DL Creatinine 0.82 0.4 - 1.24 MG/DL Calcium 9.6 8.5 - 10.6 MG/DL Total Protein 7.4 6.0 - 8.0 G/DL Total Bilirubin 0.5 0.3 - 1.2 MG/DL Albumin 3.8 3.5 - 5.0 G/DL Alk Phosphatase 100 25 - 110 U/L AST (SGOT) 12 7 - 40 U/L CO2 27 21 - 30 MMOL/L ALT (SGPT) 5 (L) 7 - 56 U/L Anion Gap 7 3 - 12 eGFR Non >60 >60 mL/min eGFR >60 >60 mL/min CBC AND DIFF Collection Time: 01/27/18 3:57 AM Result Value Ref Range White Blood Cells 20.0 (H) 4.5 - 11.0 K/UL RBC 4.35 (L) 4.4 - 5.5 M/UL Hemoglobin 13.0 (L) 13.5 - 16.5 GM/DL Hematocrit 39.6 (L) 40 - 50 % MCV 91.0 80 - 100 FL MCH 29.9 26 - 34 PG MCHC 32.9 32.0 - 36.0 G/DL RDW 14.0 11 - 15 % Platelet Count 197 150 - 400 K/UL MPV 7.1 7 - 11 FL Neutrophils 90 (H) 41 - 77 % Lymphocytes 3 (L) 24 - 44 % Monocytes 7 4 - 12 % Eosinophils 0 0 - 5 % Basophils 0 0 - 2 % Absolute Neutrophil Count 17.90 (H) 1.8 - 7.0 K/UL Absolute Lymph Count 0.70 (L) 1.0 - 4.8 K/UL Absolute Monocyte Count 1.30 (H) 0 - 0.80 K/UL Absolute Eosinophil Count 0.00 0 - 0.45 K/UL Absolute Basophil Count 0.10 0 - 0.20 K/UL Point of Care Testing (Last 24 hours) Glucose: (!) 114 (01/27/18 0687) Radiology and other Diagnostics Review: Pertinent radiology reviewed. Winsome Guido, PATRICK [phone] Associated attestation - Lamont Nino DO - 01/27/2018 6:02 PM CDT Patient seen and examined. Medical record, including radiographic and laboratory studies, has been reviewed. The documentation of history, physical findings and plan outlined by the SOLE STAINER represent my own medical decision making. Final pathology pending. Lamont Nino DO, [facility] Medical Oncology Consult Service * Gabo Ny MD - 01/27/2018 6:50 AM CDT Formatting of this note may be different from the original. Critical Care Progress Note Kelvin Zaldivar Today's Date: 01/27/2018 Admission Date: 01/24/2018 LOS: 3 days Active Problems: Neck mass SVC (superior vena cava obstruction) Leukocytosis Hyponatremia Tobacco abuse Diagnosis unknown Assessment/Plan: Hospital Course: Kelvin Zaldivar is a 42 y.o. male with a PMH of tobaccoism with ~30 pack year hx. About 3w ago developed dysphagia & voice hoarseness; evaluated by ENT in [place] who noted b/l paralyzed vocal cords. CT neck showed large R sided mass. CT c/a/p showed infiltrating mass involving the mediastinum, subcarinal & hilar regions that is narrowing the trachea as well as encompassing the pulm artery & ascending aorta. ENT placed a trach on 01/24 but were unable to completely bypass the area of narrowing. FNA was performed by IR on 01/24 w/ pathology pending; onc / rad-onc following & awaiting results. MRI brain 01/22 was normal. Some bleeding around trach site that was managed w/ thrombin spray; since resolved. Will change to MS status but to remain in the MICU for now. 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 Mass partially encases the ascending aorta & almost completely encases the main pulmonary artery. The trachea is also encompassed & is narrowed laterally. Trachea is narrowed to ~ 6mm at the level of clavicular heads. Small R pleural effusion. Sclerotic foci in several upper thoracic vertebral bodies, suspicious for metastatic disease - MRI brain 01/22 (OSH) - unremarkable - s/p tracheostomy 01/24 --> The trach does not pass through the area of compression. - core bx of neck mass 01/24 - path in process - TS 35% Plan - onc & rad-onc following; awaiting path - consult TECHNOLOGY ASSISTANT for speaking valve Post-Op Bleeding (resolved) - occurred on 01/26 around trach site, no blood noted w/ suctioning --> managed w / thrombin spray - per ENT if re-bleeds use afrin soaked 4x4 or thrombin spray - continue VTE ppx Tobaccoism ~30 pack/yr hx - some emphysematous changes on CT - continues to smoke ~1.5 packs/day - Nicotine patch - smoking cessation counseling CV - ST 100s & SBP ~130s GI - has corpak + TFs - last BM 01/25 - add senna/colace RENAL - Cr 0.82 - IO: 1.9 / 1.6 Hyponatremia - Na 132 - Alfredo 146 & uOsmo 847 --> ADH dependent - TSH 2.0 & random cortisol 26 ID Leukocytosis - likely r/t neck mass - WBC 20; afebrile - CXR w/ new R medial lung based medial infiltrate --> monitor for now - BC 01/24 - NGTD - UA 01/24 - bland - PCT 01/24 - 0.06 - no abx Prophylaxis Review: Lines: Peripheral Line Tubes: trach IVF: S/L Electrolytes: Reviewed and replaced as needed. Diet: No Insulin: No Urinary Catheter: No VTE ppx: lovenox; SCDs GI ppx: no indication PT/OT: Yes Code status: Full Code Disposition: Change to MS status but to remain in the MICU. Vince Snider APRN Pulm/Critical Care Pager [phone] 01/27/2018 M2 team pager (2nd call/nights) [phone] __ Subjective: Kelvin Zaldivar is a 42 y.o. male who is resting in bed this AM and is feeling ok , still having some pain to the trach site but no SOB. ROS: Denies: CP, SOB, cough, N/V, C/D and rash. Objective: Medications: Scheduled Meds: albuterol 0.5% (PROVENTIL; VENTOLIN) nebulizer solution 2.5 mg 2.5 mg Inhalation Q4H & PRN enoxaparin (LOVENOX) syringe 40 mg 40 mg Subcutaneous QDAY(21) ipratropium bromide (ATROVENT) 0.02 % nebulizer solution 0.5 mg 0.5 mg Inhalation Q4H & PRN nicotine (NICODERM CQ STEP 1) 21 mg/day patch 1 patch 1 patch Transdermal QDAY Continuous Infusions: PRN and Respiratory Meds:fentaNYL citrate PF Q3H PRN, LORazepam (ATIVAN) injection Q4H PRN, magnesium sulfate PRN AND Magnesium DAILY AM AND Notify Physician Ongoing, ondansetron (ZOFRAN) IV Q6H PRN, oxyCODONE Q3H PRN, oxymetazoline PRN, pancrelipase 20,000 Units/ sodium bicarbonate 650 mg(#) PRN ( Capacitor Assembler from Rx), potassium chloride SR PRN OR potassium chloride PRN, sodium phosphate IVPB PRN (Capacitor Assembler from Rx) AND Phosphorus DAILY AM AND* * Notify Physician Ongoing, thrombin PRN Vital Signs: Last Filed Vital Signs: 24 Hour Range BP: 143/82 (01/27 600) Temp: 36.9 C (98.4 F) (01/27 0400) Pulse: 106 (01/27 600) Respirations: 20 PER MINUTE (01/27 600) SpO2: 97 % (01/27 600) O2 Delivery: Trach Shield (01/27 600) SpO2 Pulse: 109 (01/27 600) BP: (117-147)/(75-93) Temp: [36.8 C (98.2 F)-37.2 C (99 F)] Pulse: [100-108] Respirations: [11 PER MINUTE-20 PER MINUTE] SpO2: [91 %-98 %] O2 Delivery: Trach Shield Intensity Pain Scale 0-10 (Pain 1): 7 (01/27/18 0240) Vitals: 01/24/18 0048 01/24/18 1259 01/27/18 0500 Weight: 79.1 kg (174 lb 6.1 oz) 79.1 kg (174 lb 6.1 oz) 73.3 kg (161 lb 9.6 oz) Intake/Output Summary: (Last 24 hours) Intake/Output Summary (Last 24 hours) at 01/27/18 0650 Last data filed at 01/27/18 0600 Gross per 24 hour Intake 1867 ml Output 1600 ml Net 267 ml Physical Exam: General: Alert, cooperative, no distress, appears stated age Head: Normocephalic, without obvious abnormality, atraumatic Eyes: Conjunctivae/corneas clear. Mouth/throat: Moist mucous membranes, Neck: Supple, trachea midline, R sided neck mass, TTP; trach in place w/ sutures w/ dried blood around; on TS Lungs: Clear to auscultation bilaterally; no wheeze Heart: Regular rate and rhythm, S1, S2 normal, no murmur appreciated Abdomen: Soft, non-tender. Bowel sounds normal. Extremities: Extremities normal, atraumatic, no cyanosis or edema Pulses: 2+ and symmetric, all extremities Skin: No rashes or lesions noted Neurologic: A&O Artificial airway: Tracheostomy Tube to TS Laboratory: LABS: Recent Labs 01/24/18 1730 01/25/18 0316 01/26/18 0105 01/27/18 0357 NA 130* 132* 132* 132* K 4.4 4.6 3.8 4.2 CL 100 99 97* 98 CO2 21 23 23 27 GAP 9 10 12 7 BUN 14 18 22 15 CR 0.95 0.99 0.95 0.82 GLU 90 100 107* 114* CA 9.4 9.7 9.6 9.6 ALBUMIN -- 3.8 4.0 3.8 MG 1.9 2.0 1.9 1.9 PO4 3.9 5.6* 3.2 2.8 TSH 2.030 -- -- -- Recent Labs 01/24/18 1730 01/25/18 0316 01/26/18 0105 01/27/18 0357 WBC 20.7* 19.4* 22.8* 20.0* HGB 13.6 13.1* 13.5 13.0* HCT 39.9* 39.5* 40.6 39.6* PLTCT 190 184 210 197 INR -- -- 1.3* -- PTT -- -- 29.7 -- AST -- 12 12 12 ALT -- 8 8 5* ALKPHOS -- 111* 108 100 Estimated Creatinine Clearance: 122.9 mL/min (based on SCr of 0.82 mg/dL). Vitals: 01/24/18 0048 01/24/18 1259 01/27/18 0500 Weight: 79.1 kg (174 lb 6.1 oz) 79.1 kg (174 lb 6.1 oz) 73.3 kg (161 lb 9.6 oz) No results for input(s): PHART, PO2ART in the last 72 hours. Invalid input(s): PC02A Radiology and Other Diagnostic Procedures Review: Reviewed ATTESTATION I personally performed the torres portions of the E/M visit, discussed case with Nurse Practitioner and concur with documentation of history, physical exam, assessment, and treatment plan unless otherwise noted. Patient doing fairly well today; appears non toxic and comfortable. No specific complaints. No further bleeding from trach site. Platelets and INR OK. ENT following, planning trach change on POD # 5. Await special stains on core biopsy taken from right supraclavicular mass last week - hopeful to know something by this evening. Oncology and Radiation Oncology both consulted; treatment plan pending tissue diagnosis. Continue TFs. PT/OT. Staff name: Gabo Ny MD Date: 01/27/2018 * Carrol Rogers, RT - 01/27/2018 4:31 AM CDT Formatting of this note may be different from the original. RESPIRATORY THERAPY ADULT PROTOCOL EVALUATION RESPIRATORY PROTOCOL PLAN Medications Albuterol/Ipratropium: Neb Q4h & PRN Note: If indicated by protocol, medication orders will be placed by therapist. Procedures Deep Breathe & Cough: BID Tracheostomy Suction: Q4h & PRN Oxygen/Humidity: O2 to keep SpO2 > 92% Monitoring: Pulse oximetry Q6h & PRN PATIENT EVALUATION RESULTS Chart Review * Pulmonary Hx: Smoking cessation < 8 weeks OR still smoking OR > 20 pack/yr hx (PEFR) OR occasional use of bronchodilator (AM) (smoker) * Surgical Hx: General surgery (cough & sigh not affected) (Trach placed 01/24) * Chest X-Ray: Infiltrates (AC) OR atelectasis (LE) OR pleural effusion OR rib fractures (LE) (atelectasis) * PFT/Oxygenation: FEV1, PEFR < 70% OR Pa02 < 70 RA OR Sp02 <92% RA OR Fi02 > 0.21 to keep Sp02 > 92% OR < 24 hours post-op (02 & oxim) OR chronic C02 retention (C02) (GIN 35%) Patient Assessment * Respiratory Pattern: Dyspnea or shortness of breath * Breath Sounds: Crackles (no CHF) (LE) OR crackles (no CHF) with ineffective cough (AC) (crackles) * Cough / Sputum: Weak or no cough (AC) OR copious sputum (AC) OR requires suction (AC) (Trach, strong cough, requires suction) * Mental Status: Alert, oriented, cooperative * Activity Level: Ambulatory with assistance Priority Index Total Points: 16 Points * Priority Index: 2 PRIORITY INDEX GUIDELINES* Priority Points 1 0-9 points 2 9-18 points 3 > 18 points + Pulm Dx or Home Rx *Higher points indicate higher acuity. Therapist: Carrol Rogers, RT Date: 01/27/2018 Torres AC=Airway clearance AM=Aerosolized medication BA=Jet aerosol DB&C=Deep breathe & cough FEV1=Forced expiratory volume in first second) IC=Inspiratory capacity LE=Lung expansion MDI=Metered dose inhaler Neb=Nebulizer O2=Oxygen Oxim=Oximetry PEFR=Peak expiratory flow rate [employer]=Rapid Response Team * Karen Snow RN - 01/26/2018 10:53 PM CDT 1950 Assumed care of patient, received SBAR from JOSE G Holbrook. All questions answered. Bedside safety check completed. VSS, patient c/o of some pain in the right shoulder. Will medicate accordingly. Will continue to monitor. 2030 Assessment completed, see doc flowsheet for details. Dr. Bello updated on lovenox order for tonight despite bleeding last night, per Dr. Bello, ok to hold the dose for tonight. Will continue to monitor. 0000 Reassessment completed, no changes from previous assessment. VSS, will continue to monitor. 0400 Reassessment completed, no changes from previous assessment. VSS, will continue to monitor. * Rashmi Kim, PT - 01/26/2018 10:58 AM CDT PHYSICAL THERAPY NOTE Patient declined to participate despite encouragement and education about the role and benefits of physical therapy - endorses fatigue. Attempted to see again in PM, patient sleeping soundly. Physical therapy will continue to follow and provide intervention as indicated. Therapist: Rashmi Kim, PT Date: 01/26/2018 * Alhaji Ramos MD - 01/26/2018 8:29 AM CDT Formatting of this note may be different from the original. ENT Progress Note Name: Kelvin Zaldivar Today's Date: 01/26/2018 Admission Date: 01/24/2018 LOS: 2 days Assessment/Plan: Active Problems: Neck mass SVC (superior vena cava obstruction) Leukocytosis Hyponatremia Tobacco abuse Diagnosis unknown 42 yo male with neck mass and POD 2 tracheostomy - cuff down - plan for POD 5 trach change to cuffless - do not discharge from hospital until first trach change has been performed by ENT - 2 pieces of surgicel placed around trach stoma 01/26 - Can use thrombin spray/afrin if continues to bleed around stoma. Page ENT if persists Subjective Kelvin Zaldivar is a 42 y.o. male. Bleeding from trach site overnight. Medications Scheduled Meds: enoxaparin (LOVENOX) syringe 40 mg 40 mg Subcutaneous QDAY(21) nicotine (NICODERM CQ STEP 1) 21 mg/day patch 1 patch 1 patch Transdermal QDAY Continuous Infusions: PRN and Respiratory Meds:fentaNYL citrate PF Q3H PRN, LORazepam (ATIVAN) injection Q4H PRN, magnesium sulfate PRN AND Magnesium DAILY AM AND Notify Physician Ongoing, ondansetron (ZOFRAN) IV Q6H PRN, oxyCODONE Q3H PRN, oxymetazoline PRN, pancrelipase 20,000 Units/ sodium bicarbonate 650 mg(#) PRN ( Capacitor Assembler from Rx), potassium chloride SR PRN OR potassium chloride PRN, sodium phosphate IVPB PRN (Capacitor Assembler from Rx) AND Phosphorus DAILY AM AND* * Notify Physician Ongoing, thrombin PRN Review of Systems: All other systems reviewed and are negative. Objective: Vital Signs: Last Filed Vital Signs: 24 Hour Range BP: 131/79 (01/27 800) Temp: 37.2 C (99 F) (01/26 0400) Pulse: 107 (01/27 800) Respirations: 15 PER MINUTE (01/27 800) SpO2: 96 % (01/27 800) O2 Delivery: Trach Shield (01/27 800) SpO2 Pulse: 107 (01/27 800) BP: (103-149)/(60-110) Temp: [36.6 C (97.8 F)-37.3 C (99.1 F)] Pulse: [79-120] Respirations: [8 PER MINUTE-20 PER MINUTE] SpO2: [91 %-98 %] O2 Delivery: Trach Shield Intensity Pain Scale 0-10 (Pain 1): 6 (01/26/18 0600) Vitals: 01/24/18 0048 01/24/18 1259 Weight: 79.1 kg (174 lb 6.1 oz) 79.1 kg (174 lb 6.1 oz) Intake/Output Summary: (Last 24 hours) Intake/Output Summary (Last 24 hours) at 01/26/18 08 Last data filed at 01/26/18 0800 Gross per 24 hour Intake 551.03 ml Output 825 ml Net -273.97 ml Stool Occurrence: 1 Physical Exam NAD trach sutured with 2-0 silk, secure no erythema cuff down Lab Review 24-hour labs: Results for orders placed or performed during the hospital encounter of (from the past 24 hour(s)) POC BLOOD GAS ARTERIAL Collection Time: 01/25/18 3:14 PM Result Value Ref Range PH-ART-POC 7.47 (H) 7.35 - 7.45 DFF3-YUX-OZC 29 (L) 35 - 45 MMHG PO2-ART-POC 62 (L) 80 - 100 MMHG Base Def-ART-POC 3.0 MMOL/L O2 Sat-ART-POC 93.0 (L) 95 - 99 % Dqcsogytezy-EGM-GXE 20.6 (L) 21 - 28 MMOL/L BLOOD GASES, PERIPHERAL VENOUS Collection Time: 01/25/18 6:20 PM Result Value Ref Range pH-Venous 7.37 7.30 - 7.40 PCO2-Venous 41 36 - 50 MMHG PO2-Venous 58 (H) 33 - 48 MMHG Base Deficit-Venous 1.4 MMOL/L O2 Sat-Venous 87.3 (H) 55 - 71 % Xevmiftafms-QLN-Lgv 23.0 MMOL/L MAGNESIUM Collection Time: 01/26/18 1:05 AM Result Value Ref Range Magnesium 1.9 1.6 - 2.6 mg/dL PHOSPHORUS Collection Time: 01/26/18 1:05 AM Result Value Ref Range Phosphorus 3.2 2.0 - 4.0 MG/DL COMPREHENSIVE METABOLIC PANEL Collection Time: 01/26/18 1:05 AM Result Value Ref Range Sodium 132 (L) 137 - 147 MMOL/L Potassium 3.8 3.5 - 5.1 MMOL/L Chloride 97 (L) 98 - 110 MMOL/L Glucose 107 (H) 70 - 100 MG/DL Blood Urea Nitrogen 22 7 - 25 MG/DL Creatinine 0.95 0.4 - 1.24 MG/DL Calcium 9.6 8.5 - 10.6 MG/DL Total Protein 7.6 6.0 - 8.0 G/DL Total Bilirubin 0.6 0.3 - 1.2 MG/DL Albumin 4.0 3.5 - 5.0 G/DL Alk Phosphatase 108 25 - 110 U/L AST (SGOT) 12 7 - 40 U/L CO2 23 21 - 30 MMOL/L ALT (SGPT) 8 7 - 56 U/L Anion Gap 12 3 - 12 eGFR Non >60 >60 mL/min eGFR >60 >60 mL/min CBC AND DIFF Collection Time: 01/26/18 1:05 AM Result Value Ref Range White Blood Cells 22.8 (H) 4.5 - 11.0 K/UL RBC 4.51 4.4 - 5.5 M/UL Hemoglobin 13.5 13.5 - 16.5 GM/DL Hematocrit 40.6 40 - 50 % MCV 90.2 80 - 100 FL MCH 30.0 26 - 34 PG MCHC 33.3 32.0 - 36.0 G/DL RDW 13.5 11 - 15 % Platelet Count 210 150 - 400 K/UL MPV 7.2 7 - 11 FL Neutrophils 92 (H) 41 - 77 % Lymphocytes 3 (L) 24 - 44 % Monocytes 5 4 - 12 % Eosinophils 0 0 - 5 % Basophils 0 0 - 2 % Absolute Neutrophil Count 21.10 (H) 1.8 - 7.0 K/UL Absolute Lymph Count 0.70 (L) 1.0 - 4.8 K/UL Absolute Monocyte Count 1.10 (H) 0 - 0.80 K/UL Absolute Eosinophil Count 0.00 0 - 0.45 K/UL Absolute Basophil Count 0.00 0 - 0.20 K/UL PROTIME INR (PT) Collection Time: 01/26/18 1:05 AM Result Value Ref Range INR 1.3 (H) 0.8 - 1.2 PTT (APTT) Collection Time: 01/26/18 1:05 AM Result Value Ref Range APTT 29.7 21.0 - 39.0 SEC CORTISOL,RANDOM Collection Time: 01/26/18 5:50 AM Result Value Ref Range Cortisol, Random 26.6 (H) 5.0 - 20.0 MCG/DL Point of Care Testing (Last 24 hours) Glucose: (!) 107 (01/26/18 0105) Radiology and other Diagnostics Review: No pertinent radiology. Alhaji Ramos MD Pager [phone] * Yusef Tomlinson RN - 01/26/2018 7:17 AM CDT 0730 - Assumed pt care at this time. Bedside safety check preformed. No immediate concerns at this time. 0800 - Initial assessment completed at this time and charted per ICU flow sheet. Plan of care reviewed and pt is resting comfortably. Pt currently on 40% TS and receiving no gtts. Pt is A&O x4 and reports no pain. Currently family at the bedside and all concerns addressed. VSS per pt trends. Fall Bundle in place. Will continue to monitor. 0830 - Nicom with 500ml NS, 8.7% change, pt not responsive. SOLE STAINER notified. 1200 - Noon assessment completed at this time and charted per ICU flow sheet. No significant changes from previous assessment. VSS per pt trends. Will continue to monitor. 1600 - Afternoon assessment completed at this time and charted per ICU flow sheet. No significant changes from previous assessment. VSS per pt trends. Will continue to monitor. * Gabo Ny MD - 01/26/2018 7:15 AM CDT Formatting of this note may be different from the original. Critical Care Progress Note Kelvin Zaldivar Today's Date: 01/26/2018 Admission Date: 01/24/2018 LOS: 2 days Active Problems: Neck mass SVC (superior vena cava obstruction) Leukocytosis Hyponatremia Tobacco abuse Diagnosis unknown Assessment/Plan: Hospital Course: Kelvin Zaldivar is a 42 y.o. male with a PMH of tobaccoism with ~30 pack year hx. About 3w ago developed dysphagia & voice hoarseness; evaluated by ENT in [place] who noted b/l paralyzed vocal cords. CT neck showed large R sided mass. CT c/a/p showed infiltrating mass involving the mediastinum, subcarinal & hilar regions that is narrowing the trachea as well as encompassing the pulm artery & ascending aorta. ENT placed a trach on 01/24 but were unable to completely bypass the area of narrowing. FNA was performed by IR on 01/24 w/ pathology pending; onc / rad-onc following & awaiting results. MRI brain 01/22 was normal. Some bleeding around trach site overnight, managed w/ thrombin spray. 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 Mass partially encases the ascending aorta & almost completely encases the main pulmonary artery. The trachea is also encompassed & is narrowed laterally. Trachea is narrowed to ~ 6mm at the level of clavicular heads. Small R pleural effusion. Sclerotic foci in several upper thoracic vertebral bodies, suspicious for metastatic disease - MRI brain 01/22 ([facility]) - unremarkable - s/p tracheostomy 01/24 --> The trach does not pass through the area of compression. - core bx of neck mass 01/24 - path in process - TS 40% Plan - onc & rad-onc following; awaiting path Post-Op Bleeding - overnight w/ fair amount of bleeding around trach site; no blood noted w/ suctioning --> managed w/ thrombin spray - per ENT if re-bleeds use afrin soaked 4x4 or thrombin spray - continue VTE ppx for now Tobaccoism ~30 pack/yr hx - some emphysematous changes on CT - continues to smoke ~1.5 packs/day - Nicotine patch - smoking cessation counseling CV - ST 100s-110s & SBP ~130s - check [facility] GI - has corpak + TFs - last BM 01/25 RENAL - Cr 0.95 - IO: 360cc / 825cc Hyponatremia - Na 132 - Alfredo 146 & uOsmo 847 --> ADH dependent - TSH 2.0 & random cortisol 26 ID Leukocytosis - likely r/t neck mass - WBC 22.8; afebrile - CXR w/ new R medial lung based medial infiltrate --> monitor for now - BC 01/24 - NGTD - UA 01/24 - bland - PCT 01/24 - 0.06 - no abx Prophylaxis Review: Lines: Peripheral Line Tubes: trach IVF: S/L Electrolytes: Reviewed and replaced as needed. Diet: No Insulin: No Urinary Catheter: No VTE ppx: lovenox; SCDs GI ppx: no indication PT/OT: Yes Code status: Full Code Disposition: Remain in the MICU. Vince Snider APRN Pulm/Critical Care Pager [phone] 01/26/2018 M2 team pager (2nd call/nights) [phone] __ Subjective: Kelvin Zaldivar is a 42 y.o. male who is resting in bed this AM and had some bleeding around his trach site overnight that has since stopped. Having some pain to the trach site but otherwise is without complaint. ROS: Denies: CP, SOB, cough, N/V, C/D and rash. Objective: Medications: Scheduled Meds: enoxaparin (LOVENOX) syringe 40 mg 40 mg Subcutaneous QDAY(21) fentaNYL citrate PF (SUBLIMAZE) injection 50 mcg 50 mcg Intravenous ONCE nicotine (NICODERM CQ STEP 1) 21 mg/day patch 1 patch 1 patch Transdermal QDAY Continuous Infusions: PRN and Respiratory Meds:fentaNYL citrate PF Q2H PRN, LORazepam (ATIVAN) injection Q2H PRN, magnesium sulfate PRN AND Magnesium DAILY AM AND Notify Physician Ongoing, ondansetron (ZOFRAN) IV Q6H PRN, oxyCODONE Q4H PRN, oxymetazoline PRN, pancrelipase 20,000 Units/ sodium bicarbonate 650 mg(#) PRN ( Capacitor Assembler from Rx), potassium chloride SR PRN OR potassium chloride PRN, sodium phosphate IVPB PRN (Capacitor Assembler from Rx) AND Phosphorus DAILY AM AND* * Notify Physician Ongoing, thrombin PRN Vital Signs: Last Filed Vital Signs: 24 Hour Range BP: 133/81 (01/26 600) Temp: 37.2 C (99 F) (01/26 0400) Pulse: 107 (01/26 600) Respirations: 16 PER MINUTE (01/26 600) SpO2: 97 % (01/26 600) O2 Delivery: Trach Shield (01/26 600) SpO2 Pulse: 106 (01/26 600) BP: (103-149)/(60-110) Temp: [36.6 C (97.8 F)-37.3 C (99.1 F)] Pulse: [76-120] Respirations: [8 PER MINUTE-20 PER MINUTE] SpO2: [91 %-98 %] O2 Delivery: Trach Shield Intensity Pain Scale 0-10 (Pain 1): 6 (01/26/18 0600) Vitals: 01/24/18 0048 01/24/18 1259 Weight: 79.1 kg (174 lb 6.1 oz) 79.1 kg (174 lb 6.1 oz) Intake/Output Summary: (Last 24 hours) Intake/Output Summary (Last 24 hours) at 01/26/18 0715 Last data filed at 01/26/18 0600 Gross per 24 hour Intake 357.83 ml Output 825 ml Net -467.17 ml Physical Exam: General: Alert, cooperative, no distress, appears stated age Head: Normocephalic, without obvious abnormality, atraumatic Eyes: Conjunctivae/corneas clear. Mouth/throat: Moist mucous membranes, Neck: Supple, trachea midline, R sided neck mass, TTP; trach in place w/ sutures w/ dried blood around; on TS Lungs: Clear to auscultation bilaterally; no wheeze Heart: Regular rate and rhythm, S1, S2 normal, no murmur appreciated Abdomen: Soft, non-tender. Bowel sounds normal. Extremities: Extremities normal, atraumatic, no cyanosis or edema Pulses: 2+ and symmetric, all extremities Skin: No rashes or lesions noted Neurologic: A&O Artificial airway: Tracheostomy Tube Laboratory: LABS: Recent Labs 01/24/185301/24/18172901/25/1831501/26/18 0105 NA 133* 130* 132* 132* K 4.1 4.4 4.6 3.8 CL 101 100 99 97* CO2 21 21 23 23 GAP 11 9 10 12 BUN 13 14 18 22 CR 0.99 0.95 0.99 0.95 GLU 101* 90 100 107* CA 9.7 9.4 9.7 9.6 ALBUMIN 4.1 -- 3.8 4.0 MG -- 1.9 2.0 1.9 PO4 -- 3.9 5.6* 3.2 TSH -- 2.030 -- -- Recent Labs 01/24/185301/24/18172901/25/1831501/26/18 0105 WBC 18.9* 20.7* 19.4* 22.8* HGB 14.4 13.6 13.1* 13.5 HCT 42.4 39.9* 39.5* 40.6 PLTCT 206 190 184 210 INR 1.2 -- -- 1.3* PTT -- -- -- 29.7 AST 15 -- 12 12 ALT 10 -- 8 8 ALKPHOS 107 -- 111* 108 Estimated Creatinine Clearance: 114.5 mL/min (based on SCr of 0.95 mg/dL). Vitals: 01/24/18 0048 01/24/18 1259 Weight: 79.1 kg (174 lb 6.1 oz) 79.1 kg (174 lb 6.1 oz) No results for input(s): PHART, PO2ART in the last 72 hours. Invalid input(s): PC02A Radiology and Other Diagnostic Procedures Review: Reviewed ATTESTATION I personally performed the torres portions of the E/M visit, discussed case with Nurse Practitioner and concur with documentation of history, physical exam, assessment, and treatment plan unless otherwise noted. Patient doing fairly well today; appears far less anxious than yesterday. No specific complaints. Did have scant bleeding from trach site which has now subsided. Evaluation by ENT noted. Platelets and INR OK. If it were to re- occur would plan for re-evaluation by ENT and would hold Lovenox (for DVT ppx). Await special stains on core biopsy taken from right supraclavicular mass last week. Oncology and Radiation Oncology both consulted; treatment plan pending tissue diagnosis. Continue TFs. Staff name: Gabo Ny MD Date: 01/26/2018 * Lily Bello MD - 01/26/2018 1:05 AM CDT Customer Support Associate Called to see patient for bleeding from trach site and increased tachypnea, no overt desaturations. Episode occurred after forceful coughing and retching. CXR without new pulmonary infiltrates. CBC, coags pending. Suspect superficial bleeding from trach wound and not pulmonary hemorrhage. Difficult to reinforce dressing at bleeding site; may consider topical thrombin spray if persistent brisk bleeding, and discussion with ENT. Lily Bello [phone] Addendum, 01/26/18 0515am Called to see patient for recurrent, large-volume bleeding at trach site, soaking through multiple packs of 4x4 gauzes, blood running down sternum/chest and even down his back. Bleeding seemed to erupt spontaneously (in absence of suctioning or coughing). On my evaluation, clotted blood surrounding trach stoma and suture points; does not seem to primarily be emanating from airway itself though there are bloody secretions within trach tube. Discussed with ENT on-call- afrin or thrombin spray may be sprayed on gauze and applied to skin/points of bleeding, and "pressure dressing" of sorts made with gauze between skin and trach. Done at bedside by myself and RN. Vitals, mentation, labs are stable. Main ddx to exclude is bleeding within/from airway secondary to tumor erosion of vascular structures (mediastinal mass seen to be encasing vasculature on imaging) or new tracheal-vascular fistula (latter highly unlikely). Appreciate ENT consult/day team to round on him early. Lily Bello [phone] * Antonio Vazquez, RT - 01/25/2018 10:52 PM CDT 2219 - pt. with SOA. RN sxn'd and RT sxn'd with lavage, resulting in moderate, thick secretions. 2250 -pt still SOA after a/a breathing tx. Will notify MD if pt. still SOA * Owen Thomas, JOSE G - 01/25/2018 7:45 PM CDT 1945~~~ Received pt in bed AOX4 and communicates needs and concerns by mouthing words, writing on note pads and texting on his phone. Report received,safety check completed and assumed his care. and other other family members at bed side. No s/s acute distress noted or offered. Assessment completed and charted per 02 flowsheet. 2100~~~Started pt on tube feeing per order.( [employer] 1.5 Via his corpak).. C/ O pain, rated at 6-7/10. Oxycodone given per order. Increased anxiety also noted and was given 0.5mg of ativan per order. Family at bed side and very supportive. Nursing care and intervention explained to pt prior to implementation. 0045~~~ Pt noted to be bleeding from his trach site. The bleeding started after pt was coughing annd nauseated. Dr. Bello was called and made aware of pt's condition.At this time the bleeding has stopped. She ordered thrombin spray and to call ENT if happens again. 0455~~~ Pt bleeding again. No cough noted prior to this bleed. Bleeding was more severe than the first time.Blood was dripping than his chest, stomach, and down own his back. Dr Bello at bedside. She also called ENT and they will be here mesmerist. She applied the thrombin spray.. Will monitor. * Gabo Ny MD - 01/25/2018 4:15 PM CDT Formatting of this note may be different from the original. MICU STAFF NOTE I have seen, personally fully evaluated, and discussed patient with the Medical ICU team. The patient is critically ill with the conditions listed below: Active Problems: Neck mass SVC (superior vena cava obstruction) Leukocytosis Hyponatremia Tobacco abuse Diagnosis unknown I spent 40 minutes (excluding time spent performing or supervising any procedures) providing and personally directing critical care services including: Systems and physical examination Review and management of ICU prophylaxis and core measures Review of laboratory data Review of telemetry data Review of imaging studies Review of medications Fluid and electrolyte management Coordination of care with consultants Serial evaluation of respiratory status 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 He is s/p tracheostomy placement by ENT. There remains a stenotic area distal to the trach and we will continue to watch Mr. Zaldivar closely for any respiratory decompensation. Some increased work of breathing this afternoon ; ABG 7.47/29/62 on 21% FiO2. Increased FiO2 to 40% TS and will check seral blood gases this afternoon/evening to assess for any evolving hypercarbia. He is s/p core biopsy of right supraclavicular mass; discussed with Pathology today. This is a high grade malignancy but will not know more until special stains are performed Saturday. Both Oncology and Radiation Oncology have been consulted; will initiate treatment plan once tissue type is known. In the meantime, should patient were to experience any decompensation, would use dexamethasone if decompensation is felt due to narrowed airway distal to trach. Corpak placed, starting TFs. Lovenox for DVT prophylaxis. Critically ill with high risk for decompensation. Prognosis guarded. Staff name: Gabo Ny MD Date: 01/25/2018 * Carlos A Yang MD - 01/25/2018 9:45 AM CDT Formatting of this note may be different from the original. ENT Progress Note Name: Kelvin Zaldivar Today's Date: 01/25/2018 Admission Date: 01/24/2018 LOS: 1 day Assessment/Plan: Active Problems: Neck mass SVC (superior vena cava obstruction) Leukocytosis Hyponatremia Tobacco abuse Diagnosis unknown 42 yo male with neck mass and POD 1 tracheostomy - cuff down - plan for POD 5 trach change to cuffless - do not discharge from hospital until first trach change has been performed by ENT - IR performed core bx of neck mass Ebony Yang please page ENT insurance verification specialist with questions Subjective Kelvin Zaldivar is a 42 y.o. male. Patient JASMIN overnight. No questions about trach. Medications Scheduled Meds: enoxaparin (LOVENOX) syringe 40 mg 40 mg Subcutaneous QDAY(21) nicotine (NICODERM CQ STEP 1) 21 mg/day patch 1 patch 1 patch Transdermal QDAY Continuous Infusions: dexmedetomidine (PRECEDEX) 400 mcg in sodium chloride 0.9% (NS) 100 mL IV infusion 0.7 mcg/kg/hr (01/25/18 0131) PRN and Respiratory Meds:fentaNYL citrate PF Q2H PRN, LORazepam (ATIVAN) injection Q1H PRN, magnesium sulfate PRN AND Magnesium DAILY AM AND Notify Physician Ongoing, pancrelipase 20,000 Units/ sodium bicarbonate 650 mg(# ) PRN (Capacitor Assembler from Rx), potassium chloride SR PRN OR potassium chloride PRN , sodium phosphate IVPB PRN (Capacitor Assembler from Rx) AND Phosphorus DAILY AM AND Notify Physician Ongoing Review of Systems: All other systems reviewed and are negative. Objective: Vital Signs: Last Filed Vital Signs: 24 Hour Range BP: 91/59 (01/25 0700) Temp: 36.9 C (98.4 F) (01/25 0400) Pulse: 79 (01/25 0830) Respirations: 17 PER MINUTE (01/25 08) SpO2: 93 % (01/25 08) O2 Delivery: Trach Shield (01/25 07) SpO2 Pulse: 71 (01/25 07) Height: 201.2 cm (79.2") (01/24 1259) BP: (87-136)/(56-90) Temp: [36.5 C (97.7 F)-37 C (98.6 F)] Pulse: [71-105] Respirations: [11 PER MINUTE-24 PER MINUTE] SpO2: [92 %-100 %] O2 Delivery: Trach Shield Intensity Pain Scale 0-10 (Pain 1): 0 (01/25/18 0400) Vitals: 01/24/18 0048 01/24/18 1259 Weight: 79.1 kg (174 lb 6.1 oz) 79.1 kg (174 lb 6.1 oz) Intake/Output Summary: (Last 24 hours) Intake/Output Summary (Last 24 hours) at 01/25/18 0945 Last data filed at 01/25/18 0700 Gross per 24 hour Intake 720.97 ml Output 1409 ml Net -688.03 ml Physical Exam NAD trach sutured with 2-0 silk, secure no erythema cuff down Lab Review 24-hour labs: Results for orders placed or performed during the hospital encounter of (from the past 24 hour(s)) LEUKEMIA/LYMPHOMA PANEL FLUID/TISSUE Collection Time: 01/24/18 5:00 PM Result Value Ref Range Leuk/Lymph Interpretation SEE PATHOLOGY REPORT Specimen/LLM RIGHT NECK MASS BIOPSY CBC Collection Time: 01/24/18 5:30 PM Result Value Ref Range White Blood Cells 20.7 (H) 4.5 - 11.0 K/UL RBC 4.45 4.4 - 5.5 M/UL Hemoglobin 13.6 13.5 - 16.5 GM/DL Hematocrit 39.9 (L) 40 - 50 % MCV 89.7 80 - 100 FL MCH 30.5 26 - 34 PG MCHC 34.0 32.0 - 36.0 G/DL RDW 13.6 11 - 15 % Platelet Count 190 150 - 400 K/UL MPV 7.3 7 - 11 FL BASIC METABOLIC PANEL Collection Time: 01/24/18 5:30 PM Result Value Ref Range Sodium 130 (L) 137 [...] 10.6 MG/DL eGFR Non >60 >60 mL/min eGFR >60 >60 mL/min MAGNESIUM Collection Time: 01/24/18 5:30 PM Result Value Ref Range Magnesium 1.9 1.6 - 2.6 mg/dL PHOSPHORUS Collection Time: 01/24/18 5:30 PM Result Value Ref Range Phosphorus 3.9 2.0 - 4.0 MG/DL TSH WITH FREE T4 REFLEX Collection Time: 01/24/18 5:30 PM Result Value Ref Range TSH 2.030 0.35 - 5.00 MCU/ML URINALYSIS DIPSTICK Collection Time: 01/24/18 6:00 PM Result Value Ref Range Color,UA YELLOW Turbidity,UA 1+ (A) CLEAR-CLEAR Specific [place]-Urine 1.029 1.003 - 1.035 pH,UA 5.0 5.0 - 8.0 Protein,UA NEG NEG-NEG Glucose,UA NEG NEG-NEG Ketones,UA 1+ (A) NEG-NEG Bilirubin,UA NEG NEG-NEG Blood,UA NEG NEG-NEG Urobilinogen,UA NORMAL NORM-NORMAL Nitrite,UA NEG NEG-NEG Leukocytes,UA NEG NEG-NEG Urine Ascorbic Acid, UA NEG NEG-NEG URINALYSIS, MICROSCOPIC Collection Time: 01/24/18 6:00 PM Result Value Ref Range WBCs,UA 0-2 0 - 2 /HPF RBCs,UA 0-2 0 - 3 /HPF MucousUA TRACE SODIUM-URINE RANDOM Collection Time: 01/24/18 6:00 PM Result Value Ref Range Sodium, Random 146 MMOL/L CREATININE-URINE RANDOM Collection Time: 01/24/18 6:00 PM Result Value Ref Range Creatinine, Random 222 MG/DL OSMOLALITY-URINE RANDOM Collection Time: 01/24/18 6:00 PM Result Value Ref Range Osmolality-Urine 847 50 - 1,400 MOS/KG CBC AND DIFF Collection Time: 01/25/18 3:16 AM Result Value Ref Range White Blood Cells 19.4 (H) 4.5 - 11.0 K/UL RBC 4.36 (L) 4.4 - 5.5 M/UL Hemoglobin 13.1 (L) 13.5 - 16.5 GM/DL Hematocrit 39.5 (L) 40 - 50 % MCV 90.5 80 - 100 FL MCH 30.0 26 - 34 PG MCHC 33.1 32.0 - 36.0 G/DL RDW 13.7 11 - 15 % Platelet Count 184 150 - 400 K/UL MPV 7.6 7 - 11 FL Neutrophils 93 (H) 41 - 77 % Lymphocytes 3 (L) 24 - 44 % Monocytes 4 4 - 12 % Eosinophils 0 0 - 5 % Basophils 0 0 - 2 % Absolute Neutrophil Count 18.00 (H) 1.8 - 7.0 K/UL Absolute Lymph Count 0.60 (L) 1.0 - 4.8 K/UL Absolute Monocyte Count 0.90 (H) 0 - 0.80 K/UL Absolute Eosinophil Count 0.00 0 - 0.45 K/UL Absolute Basophil Count 0.00 0 - 0.20 K/UL MAGNESIUM Collection Time: 01/25/18 3:16 AM Result Value Ref Range Magnesium 2.0 1.6 - 2.6 mg/dL PHOSPHORUS Collection Time: 01/25/18 3:16 AM Result Value Ref Range Phosphorus 5.6 (H) 2.0 - 4.0 MG/DL COMPREHENSIVE METABOLIC PANEL Collection Time: 01/25/18 3:16 AM Result Value Ref Range Sodium 132 (L) 137 - 147 MMOL/L Potassium 4.6 3.5 - 5.1 MMOL/L Chloride 99 98 - 110 MMOL/L Glucose 100 70 - 100 MG/DL Blood Urea Nitrogen 18 7 - 25 MG/DL Creatinine 0.99 0.4 - 1.24 MG/DL Calcium 9.7 8.5 - 10.6 MG/DL Total Protein 7.1 6.0 - 8.0 G/DL Total Bilirubin 0.6 0.3 - 1.2 MG/DL Albumin 3.8 3.5 - 5.0 G/DL Alk Phosphatase 111 (H) 25 - 110 U/L AST (SGOT) 12 7 - 40 U/L CO2 23 21 - 30 MMOL/L ALT (SGPT) 8 7 - 56 U/L Anion Gap 10 3 - 12 eGFR Non >60 >60 mL/min eGFR >60 >60 mL/min Point of Care Testing (Last 24 hours) Glucose: 100 (01/25/18 0316) Radiology and other Diagnostics Review: No pertinent radiology. Carlos A Yang MD Pager [phone] * Yusef Tomlinson RN - 01/25/2018 7:37 AM CDT 0730 - Assumed pt care at this time. Bedside safety check preformed. No immediate concerns at this time. 0800 - Initial assessment completed at this time and charted per ICU flow sheet. Plan of care reviewed and pt is resting comfortably. Pt currently on 40% TS and receiving a precedex gtt. Pt is A&O x4 and reports no pain. Currently all concerns addressed. VSS per pt trends. Fall Bundle in place. Will continue to monitor. 1000 - Corpak placed at bedside. Pt tolerated well. 1200 - Noon assessment completed at this time and charted per ICU flow sheet. No significant changes from previous assessment. VSS per pt trends. Will continue to monitor. 1500 - Pt got up to bedside commode with steady gait. Pt then transferred to the chair when pt experienced nausea. SOLE STAINER at bedside, ordered Zofran. Med administered. Pt desired to remain in the chair. Pt experiencing labored breathing, RT at bedside. AGB obtained. Will continue to monitor. 1600 - Afternoon assessment completed at this time and charted per ICU flow sheet. No significant changes from previous assessment. VSS per pt trends. Will continue to monitor. * Vince Snider APRN - 01/25/2018 7:24 AM CDT Formatting of this note may be different from the original. Critical Care Progress Note Kelvin Zaldivar Today's Date: 01/25/2018 Admission Date: 01/24/2018 LOS: 1 day Active Problems: Neck mass SVC (superior vena cava obstruction) Leukocytosis Hyponatremia Tobacco abuse Diagnosis unknown Assessment/Plan: Hospital Course: Kelvin Zaldivar is a 42 y.o. male with a PMH of tobaccoism with ~30 pack year hx. About 3w ago developed dysphagia & voice hoarseness; evaluated by ENT in [place] who noted b/l paralyzed vocal cords. CT neck showed large R sided mass. CT c/a/p showed infiltrating mass involving the mediastinum, subcarinal & hilar regions that is narrowing the trachea as well as encompassing the pulm artery & ascending aorta. ENT placed a trach on 01/24 but were unable to completely bypass the area of narrowing. FNA was performed by IR on 01/24 w/ pathology pending; onc / rad-onc following & awaiting results. Overnight w/ significant anxiety & managed w/ precedex. 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 Mass partially encases the ascending aorta & almost completely encases the main pulmonary artery. The trachea is also encompassed & is narrowed laterally. Trachea is narrowed to ~ 6mm at the level of clavicular heads. Small R pleural effusion. Sclerotic foci in several upper thoracic vertebral bodies, suspicious for metastatic disease - s/p tracheostomy 01/24 --> The trach does not pass through the area of compression. - core bx of neck mass 01/24 - path in process - TS 21% Plan - onc & rad-onc following; awaiting path --> will plan to touch base with once path results - fentanyl PRN - start VTE ppx Tobaccoism ~30 pack/yr hx - some emphysematous changes on CT - continues to smoke ~1.5 packs/day - Nicotine patch - smoking cessation counseling CV - SR 70s & SBP 90s-110s GI - place corpak & start TFs RENAL - Cr 0.99 - IO: 700cc / 1.4L Hyponatremia - Na 132 - Alfredo 146 & uOsmo 847 --> ADH dependent - TSH 2.0 - check random cortisol ENDO - BS 100 - TSH 2.03 ID Leukocytosis - likely r/t neck mass - WBC 19.4 (stable); afebrile - CXR w/o infiltrate - BC 01/24 - NGTD - UA 01/24 - bland - PCT 01/24 - 0.06 - no abx Prophylaxis Review: Lines: Peripheral Line Tubes: trach IVF: S/L Electrolytes: Reviewed and replaced as needed. Diet: No Insulin: No Urinary Catheter: No VTE ppx: lovenox; SCDs GI ppx: no indication PT/OT: Yes Code status: Full Code Disposition: Remain in the MICU. - Pt critically ill with the above diagnoses. I spent 50 minutes providing critical care services including: reviewing outside records and obtaining history from the patient/family members performing a physical examination serially reviewing laboratory, telemetry, hemodynamic, oximetry, and respiratory data reviewing radiographic images reviewing medications managing fluids/electrolytes, antibiotics, ICU prophylaxis, and mechanical ventilation developing the overall plan of care. Vince Snider APRN Pulm/Critical Care Pager [phone] 01/25/2018 M2 team pager (2nd call/nights) [phone] __ Subjective: Kelvin Zaldivar is a 42 y.o. male who is resting in bed this AM and having some minor pain at the trach site & some anxiety that has improved this AM; otherwise no complaint. ROS: Denies: CP, SOB, cough, N/V, C/D and rash. Objective: Medications: Scheduled Meds: nicotine (NICODERM CQ STEP 1) 21 mg/day patch 1 patch 1 patch Transdermal QDAY Continuous Infusions: dexmedetomidine (PRECEDEX) 400 mcg in sodium chloride 0.9% (NS) 100 mL IV infusion 0.7 mcg/kg/hr (01/25/18 0131) PRN and Respiratory Meds:fentaNYL citrate PF Q2H PRN, magnesium sulfate PRN AND Magnesium DAILY AM AND Notify Physician Ongoing, potassium chloride SR PRN OR potassium chloride PRN, sodium phosphate IVPB PRN (Capacitor Assembler from Rx) AND Phosphorus DAILY AM AND Notify Physician Ongoing Vital Signs: Last Filed Vital Signs: 24 Hour Range BP: 91/59 (01/25 700) Temp: 36.9 C (98.4 F) (01/25 0400) Pulse: 71 (01/25 700) Respirations: 17 PER MINUTE (01/25 700) SpO2: 99 % (01/25 700) O2 Delivery: Trach Shield (01/25 700) SpO2 Pulse: 71 (01/25 700) Height: 201.2 cm (79.2") (01/24 125) BP: (87-136)/(56-90) Temp: [36.5 C (97.7 F)-37 C (98.6 F)] Pulse: [71-105] Respirations: [11 PER MINUTE-24 PER MINUTE] SpO2: [92 %-100 %] O2 Delivery: Trach Shield Intensity Pain Scale 0-10 (Pain 1): 0 (01/25/18 0400) Vitals: 01/24/18 0048 01/24/18 1259 Weight: 79.1 kg (174 lb 6.1 oz) 79.1 kg (174 lb 6.1 oz) Intake/Output Summary: (Last 24 hours) Intake/Output Summary (Last 24 hours) at 01/25/18 0724 Last data filed at 01/25/18 0700 Gross per 24 hour Intake 720.97 ml Output 1409 ml Net -688.03 ml Physical Exam: General: Alert, cooperative, no distress, appears stated age Head: Normocephalic, without obvious abnormality, atraumatic Eyes: Conjunctivae/corneas clear. PERRL Mouth/throat: Moist mucous membranes, Neck: Supple, trachea midline, R sided neck mass, TTP; trach in place w/ sutures, CDI; on TS Lungs: Clear to auscultation bilaterally; no wheeze Heart: Regular rate and rhythm, S1, S2 normal, no murmur appreciated Abdomen: Soft, non-tender. Bowel sounds normal. Extremities: Extremities normal, atraumatic, no cyanosis or edema Pulses: 2+ and symmetric, all extremities Skin: No rashes or lesions noted Neurologic: A&O Artificial airway: Tracheostomy Tube Laboratory: LABS: Recent Labs 01/24/18 0054 01/24/18 1730 01/25/18 0316 NA 133* 130* 132* K 4.1 4.4 4.6 CL 101 100 99 CO2 21 21 23 GAP 11 9 10 BUN 13 14 18 CR 0.99 0.95 0.99 GLU 101* 90 100 CA 9.7 9.4 9.7 ALBUMIN 4.1 -- 3.8 MG -- 1.9 2.0 PO4 -- 3.9 5.6* TSH -- 2.030 -- Recent Labs 01/24/18 0054 01/24/18 1730 01/25/18 0316 WBC 18.9* 20.7* 19.4* HGB 14.4 13.6 13.1* HCT 42.4 39.9* 39.5* PLTCT 206 190 184 INR 1.2 -- -- AST 15 -- 12 ALT 10 -- 8 ALKPHOS 107 -- 111* Estimated Creatinine Clearance: 109.9 mL/min (based on SCr of 0.99 mg/dL). Vitals: 01/24/18 0048 01/24/18 1259 Weight: 79.1 kg (174 lb 6.1 oz) 79.1 kg (174 lb 6.1 oz) No results for input(s): PHART, PO2ART in the last 72 hours. Invalid input(s): PC02A Radiology and Other Diagnostic Procedures Review: Reviewed * Catia Ulloa RN - 01/25/2018 5:19 AM CDT 01/24/2018 1930: Assumed patient care at this time; report received and bedside safety checks performed with previous Amber ARAIZA. Patient with VSS per trends, reporting anxiety related to new tracheostomy. See eMAR for precedex gtt titrations. Patient denies pain at this time. Not at high risk of fall, Fall Bundle not indicated at this time. Current orders, plans of care, lab values, telemetry reviewed. Monitoring. ~1999: Assessment complete per ICU flowsheet; patient drowsy but AOx4 with VSS per trends on 40% TS. PIVs patent and without complication. Voiding in urinal and frequently turning self in bed. Denies pain but reports severe anxiety related to new trach; discussed with Dr. Bello and orders to be placed for PRN lorazepam. Patient agreeable to this plan. Tracheostomy site with scant serosanguinous drainage but otherwise without complication. Patient demonstrating strong spontaneous cough and using yankauer to assist in clearing secretions. No other concerns. Monitoring. 01/25/2018 ~0000: Reassessment complete per ICU flowsheet; no significant changes from previous assessment noted. VSS per trends on 40% TS, PIVs patent and without complication, tracheostomy site without complication. Patient continues to have severe anxiety episodes, writing notes stating "I just keep waking up and being suddenly scared of the trach." RN remaining close to bedside to provide emotional support and reorientation. Monitoring. ~0400: Reassessment complete per ICU flowsheet; no significant changes from previous assessment noted. VSS per trends on 40% TS, PIVs patent and tracheostomy without complication. RN continuing to provide frequent emotional support and coaching patient through episodes of anxiety. Dr. Bello updated and with VO okay to administer additional 0.5 lorazepam if patient needs. Monitoring. * Miguel Shipley MD - 01/24/2018 7:52 PM CDT Formatting of this note may be different from the original. MICU STAFF NOTE This note is a documentation of critical care independently provided for the patient today. I have seen, personally fully evaluated, and assessed the patient. The patient is critically ill with the conditions listed below: Active Hospital Problems Diagnosis Neck mass SVC (superior vena cava obstruction) Leukocytosis Hyponatremia Tobacco abuse Diagnosis unknown Added automatically from request for surgery [id number] I spent 35 minutes (excluding time spent performing or supervising any procedures and independent of the time spent by the SOLE STAINER) providing and personally directing critical care services including: Systems and physical examination Review and management of ICU prophylaxis and core measures Review of laboratory data Review of telemetry data Review of imaging studies Review of medications Fluid and electrolyte management Mr. Zaldivar is admitted to the medical ICU critically ill with a high risk airway. He remains with high risk airway status post tracheostomy because we were unable to get past the entire narrowing with his newly inserted tracheostomy tube. Tracheostomy tube resolves issue for the time being with his bilateral paralyzed vocal cords. Remains with large mediastinal and neck mass that requires diagnosis for next steps of therapy. Appreciate assistance from interventional radiology and will have core biopsy performed this afternoon. Depending on results patient may need emergent oncology and/or radiation oncology evaluation for treatment of this large mass. Continue ICU care monitoring. Miguel Shipley [phone] * Carl Terry, RN - 01/24/2018 5:10 PM CDT 1640 - Assumed care, IR team at the bedside, pt prepped for procedure, Consent obtained by Dr. Coronado from family. 1650 - Procedure in progress. 1705 - Procedure complete, care assumed by Amber ARAIZA. * Jolanta Masters RN - 01/24/2018 5:00 PM CDT 15 cores taken at bedside for testing. Cores sent to lab for testing at this time. * Jolanta Masters RN - 01/24/2018 4:32 PM CDT This RN, IR Antione Mina and Leora Nicholas at bedside [id number] for percutaneous biopsy procedure. * Amber Gray RN - 01/24/2018 3:30 PM CDT Patient arrived on unit via bed accompanied by anesthesia and ENT. Assessment completed, refer to flowsheet for details. Orders released, reviewed, and implemented as appropriate. Oriented to surroundings, call light within reach. Plan of care reviewed. Will continue to monitor and assess. * Marvin Flores MD - 01/24/2018 9:56 AM CDT Brief ICU Evaluation: Mr. Zaldivar is a 42 year old male with PMH Tobacco Use - who presented after progressive voice hoarseness - s/p outpatient ENT evaluation that demonstrated bilateral vocal cord paralysis. Subsequent CT Chest demonstrated 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 - and decision made to transfer to . Upon arrival to - ENT evaluated - with plan for tracheostomy today. Rapid response called today for airway evaluation. Currently patient has no stridor and has no evidence of hypoxemia. Given that he is a high risk and warrants post operative airway monitoring - I have discussed with ENT to arrange airway monitoring post procedurally with our service. Plan of care discussed with Dr. Shipley. Marvin Flores MD Pulmonary/Critical Care Fellow * Meggan Hooper MBBS - 01/24/2018 9:00 AM CDT Resuscitation Status Conversation Individuals present for resuscitation status conversation: resident/fellow physician and patient Details of conversation regarding resuscitation status: I had an extensive conversation with him and his girlfriend and they would like to be full code. He is ok to get CPR, defibrillation and intubation if needed Other documents present, which outline patient/surrogate wishes: None * Alhaji Ramos MD - 01/24/2018 8:21 AM CDT Formatting of this note may be different from the original. ELYSE/HNS PROGRESS NOTE Today's Date: 01/24/2018 Admission Date: 01/24/2018 LOS: 0 days Subjective No acute events overnight. Patient denies any difficulty breathing at this time , no noisy breathing. Objective Vital Signs: Last Filed Vital Signs: 24 Hour Range BP: 140/84 (01/24 700) Temp: 36.3 C (97.3 F) (01/24 700) Pulse: 102 (01/24 700) Respirations: 20 PER MINUTE (01/24 700) SpO2: 96 % (01/24 700) O2 Delivery: None (Room Air) (01/24 700) Height: 201.2 cm (79.2") (01/25 48) BP: (131-140)/(76-85) Temp: [36.2 C (97.2 F)-36.9 C (98.5 F)] Pulse: [99-123] Respirations: [20 PER MINUTE-26 PER MINUTE] SpO2: [96 %-100 %] O2 Delivery: None (Room Air) Intensity Pain Scale 0-10 (Pain 1): 3 (01/24/18 0412) Vitals: 01/24/18 0048 Weight: 79.1 kg (174 lb 6.1 oz) Intake/Output Summary: (Last 24 hours) Intake/Output Summary (Last 24 hours) at 01/24/18 0821 Last data filed at 01/24/18 0756 Gross per 24 hour Intake 0 ml Output 0 ml Net 0 ml Physical Exam NAD, no increased WOB No audible phonation, speaks in whisper R neck mass stable Lab Review Comprehensive Metabolic Profile Lab Results Component Value Date/Time NA 133 (L) 01/24/2018 12:54 AM K 4.1 01/24/2018 12:54 AM CL 101 01/24/2018 12:54 AM CO2 21 01/24/2018 12:54 AM GAP 11 01/24/2018 12:54 AM BUN 13 01/24/2018 12:54 AM CR 0.99 01/24/2018 12:54 AM GLU 101 (H) 01/24/2018 12:54 AM Lab Results Component Value Date/Time CA 9.7 01/24/2018 12:54 AM ALBUMIN 4.1 01/24/2018 12:54 AM TOTPROT 7.6 01/24/2018 12:54 AM ALKPHOS 107 01/24/2018 12:54 AM AST 15 01/24/2018 12:54 AM ALT 10 01/24/2018 12:54 AM TOTBILI 0.8 01/24/2018 12:54 AM GFR >60 01/24/2018 12:54 AM GFRAA >60 01/24/2018 12:54 AM CBC w/Diff Lab Results Component Value Date/Time WBC 18.9 (H) 01/24/2018 12:54 AM RBC 4.80 01/24/2018 12:54 AM HGB 14.4 01/24/2018 12:54 AM HCT 42.4 01/24/2018 12:54 AM MCV 88.4 01/24/2018 12:54 AM MCH 30.0 01/24/2018 12:54 AM MCHC 33.9 01/24/2018 12:54 AM RDW 13.9 01/24/2018 12:54 AM PLTCT 206 01/24/2018 12:54 AM MPV 7.2 01/24/2018 12:54 AM Lab Results Component Value Date/Time NEUT 89 (H) 01/24/2018 12:54 AM ANC 16.80 (H) 01/24/2018 12:54 AM LYMA 5 (L) 01/24/2018 12:54 AM ALC 1.00 01/24/2018 12:54 AM ANA 5 01/24/2018 12:54 AM AMC 0.90 (H) 01/24/2018 12:54 AM EOSA 1 01/24/2018 12:54 AM AEC 0.20 01/24/2018 12:54 AM BASA 0 01/24/2018 12:54 AM ABC 0.00 01/24/2018 12:54 AM Point of Care Testing (Last 24 hours) Glucose: (!) 101 (01/24/18 0054) Problem List: Patient Active Problem List Diagnosis Date Noted Neck mass 01/24/2018 SVC (superior vena cava obstruction) 01/24/2018 Leukocytosis 01/24/2018 Hyponatremia 01/24/2018 Tobacco abuse 01/24/2018 Assessment/Plan: Kelvin Zaldivar is a 42 y.o. male with a R neck mass and bilateral vocal cord paresis. Plan to take to OR later this morning/today for tracheostomy. Recommend IR core biopsy of mass to rule out carcinoma/limit tumor seeding. - NPO/hold anticoagulation - Patient is consented - Will update with timing Alhaji Ramos MD ENT Resident [phone] Associated attestation - Jorge eNff MD - 01/24/2018 3:44 PM CDT Formatting of this note may be different from the original. ATTESTATION I personally performed the torres portions of the E/M visit, discussed case with resident and concur with resident documentation of history, physical exam, assessment, and treatment plan unless otherwise noted. See my notes on consult note from overnight. I agree with the plan for needle biopsy (FNA vs core) prior to open biopsy Will need feeding tube due to high risk of aspiration Plan for tracheostomy today. Staff name: Jorge Neff MD Date: 01/24/2018 * Kira Dumas RT - 01/24/2018 12:56 AM CDT Formatting of this note may be different from the original. RESPIRATORY THERAPY ADULT PROTOCOL EVALUATION RESPIRATORY PROTOCOL PLAN Medications Note: If indicated by protocol, medication orders will be placed by therapist. Procedures IPPB: Place a nursing order for "IS Q1h While Awake" for any of Lung Expansion indicators PATIENT EVALUATION RESULTS Chart Review * Pulmonary Hx: Smoking cessation < 8 weeks OR still smoking OR > 20 pack/yr hx (PEFR) OR occasional use of bronchodilator (AM) (current smoker, denies COPD) * Surgical Hx: No surgery OR last surgery > 6 weeks ago OR trach/stoma (BA) * Chest X-Ray: Clear OR not available (no current cxr) * PFT/Oxygenation: FEV1, PEFR > 80% predicted OR physically unable to perform OR Pa02 >80 RA OR Sp02 >95% RA (98% on RA) Patient Assessment * Respiratory Pattern: Regular pattern and rate OR good chest excursion with deep breathing * Breath Sounds: Clear apically, but diminished in bases (LE) OR CHF related crackles (02) (oximetry) * Cough / Sputum: Good effective cough OR occasional or minimal sputum OR thin sputum * Mental Status: Alert, oriented, cooperative * Activity Level: Ambulatory Priority Index Total Points: 4 Points * Priority Index: Criteria not met PRIORITY INDEX GUIDELINES* Priority Points 1 0-9 points 2 9-18 points 3 > 18 points + Pulm Dx or Home Rx *Higher points indicate higher acuity. Therapist: Kira Dumas, RT Date: 01/24/2018 Torres AC=Airway clearance AM=Aerosolized medication BA=Jet aerosol DB&C=Deep breathe & cough FEV1=Forced expiratory volume in first second) IC=Inspiratory capacity LE=Lung expansion MDI=Metered dose inhaler Neb=Nebulizer O2=Oxygen Oxim=Oximetry PEFR=Peak expiratory flow rate [employer]=Rapid Response Team * Dennis Romero RN - 01/24/2018 12:48 AM CDT Patient arrived on unit via ambulation accompanied by family. Patient transferred to the bed without assistance. Assessment completed, refer to flowsheet for details. MD paged of patient arrival to unit. Orders released, reviewed, and implemented as appropriate. Oriented to surroundings, call light within reach. Plan of care reviewed. Will continue to monitor and assess. in this encounter H&P Notes * Jessica Olguin DO - 02/06/2018 4:00 AM CDT Formatting of this note may be different from the original. Trauma/Critical Care Admission History and Physical Assessment Name: Kelvin Zaldivar Admission Date: 01/24/2018 Assessment/Plan: Active Problems: Neck mass SVC (superior vena cava obstruction) Leukocytosis Hyponatremia Tobacco abuse Carcinoma of unknown origin (HCC) Airway compromise Anxiety 42 y.o.malewith a past medical history of tobaccoism with ~30 pack year hx. He developed voice hoarseness and was found to have a neck mass. Biopsy preformed on January 24 showed concerns for carcinoma. He was admitted to the ICU originally due to airway compromise from the mass. He went to the floor as he was stable. Today, he had a procedure for a G tube placement. Shortly after he was having difficulty breathing and required increase oxygen. Neuropsych - Severe anxiety - AAOx4 - PRN ativan - MRI brain (01/22): unremarkable - Psych to continue to follow CV #Tachycardia #SVC syndrome - Anxiety versus infection versus hypoxia - SVC from mass affect, swelling in bilateral upper extremities PLAN > Venous doppler to rule out DVT > Continue to monitor swelling > Monitor I and O, hold on diuresis for now Pulmonary #Neck mass s/p biopsy #Tracheostomy #Acute hypoxic respiratory failure #Respiratory alkalosis with metabolic alkalosis #Pneumonia - Increase in oxygen demand after G tube placement: likely splinting and atelectasis versus pneumonia - Respiratory alkalosis likely from anxiety versus hyperventilation, pulmonary edema, PNA - MEtabolic alkalosis likely from diuresis - Biopsy of neck mass on 01/24: poorly differentiated malignant neoplasm with necrosis, most compatible with high grade carcinoma PLAN > Continue to monitor I and O, adequate urine output determine if more diuresis needed > Repiratory culture, blood cultures > Received dose of solumedrol during [employer], monitor clinically and consider adding steroids to MAR > Vanc and zosyn for possible HCAP in setting of leukocytosis, if CXR is normal then can discontinue > PEEP on vent for atelectasis, pain control, ativan PRN Heme/Onc #Adenocarcinoma of Unknown Primary -Biopsy of neck mass on 01/24: poorly differentiated malignant neoplasm with necrosis, most compatible with high grade carcinoma - MRI brain 01/22 (OS[facility]) - unremarkable - IR placed left chest port on 02/03/18 PLAN - Radiation therapy with chemo, received Cisplatin and etoposide 02/03/2018 (q21 days per oncology team) - Oncology following GI - Received G tube in am, pain at sight - Continue to monitor - NPO - Pain control fentanyl, morphine RENAL - Baseline Cr <1, current Cr 1.08 - Monitor I and O and diuresis PRN ID #Leukocytosis #Possible pneumonia - Sirs 2/4, leukocytosis and tachycardia - Procal 0.06 WNL 01/24 - CXR shows PLAN > Strep pnuemo ag, legionella ag > V/Z > Repeat procal > blood, sputum, urine cultures FEN: no fluids, replace electrolytes PRN, NPO Prophylaxis Review: Lines: Yes; Central Line; Indication: Frequent blood draws and Med not deliverable peripherally; Type: Implanted subcutaneous access device Urinary Catheter: No Antibiotic Usage: Yes; Infection present or suspected: Lung; Pneumonia VTE: Pharmacological prophylaxis; Enoxaparin and Mechanical prophylaxis; Sequential compression device Disposition/Family: Admission to ICU for increased oxygen demand Code Status: Full Code Patient care discussed with Dr. Ace Olguin, Family Medicine PGY-1 MICU 3 pager [phone] __ Primary Care Physician: No Pcp, Na Verified Chief Complaint: Increase oxygen demand History of Present Illness: Kelvin Zaldivar is a 42 y.o. male a past medical history of tobaccoism with ~30 pack year hx. He developed voice hoarseness and was found to have a neck mass. Biopsy preformed on January 24 showed concerns for carcinoma. He was admitted to the ICU originally due to airway compromise from the mass. He went to the floor as he was stable. Today, he had a procedure for a G tube placement. Shortly after he was having difficulty breathing and required increase oxygen. Past Medical History: Diagnosis Date Tobacco abuse Past Surgical History: Procedure Laterality Date TRACHEOSTOMY N/A 01/24/2018 TRACHEOSTOMY performed by [facility] BRONCHOSCOPY N/A 01/24/2018 BRONCHOSCOPY Through tracheostomy performed by Jorge [facility]ff [facility] Family history reviewed; non-contributory Social History Social History Marital status: Single Spouse name: N/A Number of children: N/A Years of education: N/A Social History Main Topics Smoking status: Current Every Day Smoker Smokeless tobacco: Never Used Alcohol use No Drug use: No Sexual activity: Yes Partners: Female Other Topics Concern Not on file Social History Narrative No narrative on file Immunizations (includes history and patient reported): There is no immunization history on file for this patient. Allergies: Patient has no known allergies. Medications: No prescriptions prior to admission. Review of Systems: All other systems reviewed and are negative. Vital Signs: Last Filed In 24 Hours Vital Signs: 24 Hour Range BP: 121/80 (04/12 0323) Temp: 36.7 C (98 F) (02/06 354) Pulse: 104 (02/06 323) Respirations: 20 PER MINUTE (02/06 323) SpO2: 91 % (02/06 323) O2 Delivery: Trach Shield (02/06 323) SpO2 Pulse: 100 (02/05 0939) BP: (121-165)/(72-102) Temp: [36.3 C (97.3 F)-36.9 C (98.4 F)] Pulse: [89-108] Respirations: [10 PER MINUTE-30 PER MINUTE] SpO2: [85 %-97 %] O2 Delivery: Trach Shield Intensity Pain Scale 0-10 (Pain 1): (not recorded) Physical Exam: General: Moderate distress, unable to use his voice HEENT: no icterus, PERRL, EOMI Neck: supple, no JVD, trachea midline with tracheostomy present Chest: clear to auscultation, no accessory muscle use, left chest port Cardiac: normal S1S2 Abdomen: bowel sounds present, tender and G tube site Extremities: no cyanosis or clubbing, non pitting swelling in upper extremities Lymphatics: no cervical, axillary or inguinal lymphadenopathy Vascular: pulses intact Psychiatric: normal mood and affect Neurologic: alert, awake and oriented Ventilator/ Respiratory Support: Yes: Mode: PS/CPAP Set Vt (ml): [400 milliliters-450 milliliters] Tidal Volume Spont (mL): [467 milliliters-736 milliliters] Set RR: [12 breaths/minutes-16 breaths/minutes] Total Respiratory Rate (Breaths/Min): [6 breaths/minutes-25 breaths/minutes] O2%: [100 %] PIP Actual: [1.1 cm H20-18 cm H20] PEEP/CPAP: [5 cm H2O-8 cm H2O] PSupport: [5 cm H20-10 cm H20] Lab: 24-hour labs: Results for orders placed or performed during the hospital encounter of (from the past 24 hour(s)) CBC AND DIFF Collection Time: 02/06/18 2:20 AM Result Value Ref Range White Blood Cells 18.6 (H) 4.5 - 11.0 K/UL RBC 4.11 (L) 4.4 - 5.5 M/UL Hemoglobin 12.2 (L) 13.5 - 16.5 GM/DL Hematocrit 37.2 (L) 40 - 50 % MCV 90.6 80 - 100 FL MCH 29.7 26 - 34 PG MCHC 32.8 32.0 - 36.0 G/DL RDW 13.9 11 - 15 % Platelet Count 249 150 - 400 K/UL MPV 7.0 7 - 11 FL Neutrophils 97 (H) 41 - 77 % Lymphocytes 1 (L) 24 - 44 % Monocytes 2 (L) 4 - 12 % Eosinophils 0 0 - 5 % Basophils 0 0 - 2 % Absolute Neutrophil Count 18.10 (H) 1.8 - 7.0 K/UL Absolute Lymph Count 0.30 (L) 1.0 - 4.8 K/UL Absolute Monocyte Count 0.30 0 - 0.80 K/UL Absolute Eosinophil Count 0.00 0 - 0.45 K/UL Absolute Basophil Count 0.00 0 - 0.20 K/UL COMPREHENSIVE METABOLIC PANEL Collection Time: 02/06/18 2:20 AM Result Value Ref Range Sodium 137 137 - 147 MMOL/L Potassium 4.6 3.5 - 5.1 MMOL/L Chloride 103 98 - 110 MMOL/L Glucose 99 70 - 100 MG/DL Blood Urea Nitrogen 35 (H) 7 - 25 MG/DL Creatinine 1.00 0.4 - 1.24 MG/DL Calcium 9.5 8.5 - 10.6 MG/DL Total Protein 6.5 6.0 - 8.0 G/DL Total Bilirubin 1.0 0.3 - 1.2 MG/DL Albumin 3.1 (L) 3.5 - 5.0 G/DL Alk Phosphatase 104 25 - 110 U/L AST (SGOT) 23 7 - 40 U/L CO2 26 21 - 30 MMOL/L ALT (SGPT) 23 7 - 56 U/L Anion Gap 8 3 - 12 eGFR Non >60 >60 mL/min eGFR >60 >60 mL/min PROTIME INR (PT) Collection Time: 02/06/18 3:12 AM Result Value Ref Range INR 1.1 0.8 - 1.2 PTT (APTT) Collection Time: 02/06/18 3:12 AM Result Value Ref Range APTT 28.7 21.0 - 39.0 SEC LACTIC ACID (BG - RAPID LACTATE) Collection Time: 02/06/18 3:12 AM Result Value Ref Range Lactic Acid,BG 1.4 0.5 - 2.0 MMOL/L BLOOD BANK SAMPLE HOLD Collection Time: 02/06/18 3:12 AM Result Value Ref Range BB Sample hold IN LAB POC GLUCOSE Collection Time: 02/06/18 3:21 AM Result Value Ref Range Glucose, POC 105 (H) 70 - 100 MG/DL POC BLOOD GAS ARTERIAL Collection Time: 02/06/18 3:27 AM Result Value Ref Range PH-ART-POC 7.50 (H) 7.35 - 7.45 UBY4-MVA-PCI 37 35 - 45 MMHG PO2-ART-POC 55 (L) 80 - 100 MMHG Base Ex-ART-POC 6.0 MMOL/L O2 Sat-ART-POC 91.0 (L) 95 - 99 % Khjikmfwtcb-BDN-ZOG 28.7 (H) 21 - 28 MMOL/L POC HEMATOCRIT Collection Time: 02/06/18 3:27 AM Result Value Ref Range Hemoglobin POC 13.6 13.5 - 16.5 GM/DL Hematocrit POC 40.0 40 - 50 % POC POTASSIUM Collection Time: 02/06/18 3:27 AM Result Value Ref Range Potassium-POC 4.3 3.5 - 5.1 MMOL/L POC SODIUM Collection Time: 02/06/18 3:27 AM Result Value Ref Range Sodium-POC 138 137 - 147 MMOL/L POC IONIZED CALCIUM Collection Time: 02/06/18 3:27 AM Result Value Ref Range Ionized Calcium-POC 1.23 1.0 - 1.3 MMOL/L CBC Collection Time: 02/06/18 3:34 AM Result Value Ref Range White Blood Cells 19.4 (H) 4.5 - 11.0 K/UL RBC 4.36 (L) 4.4 - 5.5 M/UL Hemoglobin 13.3 (L) 13.5 - 16.5 GM/DL Hematocrit 39.1 (L) 40 - 50 % MCV 89.7 80 - 100 FL MCH 30.5 26 - 34 PG MCHC 34.0 32.0 - 36.0 G/DL RDW 13.7 11 - 15 % Platelet Count 280 150 - 400 K/UL MPV 6.8 (L) 7 - 11 FL COMPREHENSIVE METABOLIC PANEL Collection Time: 02/06/18 3:34 AM Result Value Ref Range Sodium 138 137 - 147 MMOL/L Potassium 4.4 3.5 - 5.1 MMOL/L Chloride 100 98 - 110 MMOL/L Glucose 103 (H) 70 - 100 MG/DL Blood Urea Nitrogen 36 (H) 7 - 25 MG/DL Creatinine 0.99 0.4 - 1.24 MG/DL Calcium 9.8 8.5 - 10.6 MG/DL Total Protein 7.0 6.0 - 8.0 G/DL Total Bilirubin 1.1 0.3 - 1.2 MG/DL Albumin 3.4 (L) 3.5 - 5.0 G/DL Alk Phosphatase 115 (H) 25 - 110 U/L AST (SGOT) 28 7 - 40 U/L CO2 29 21 - 30 MMOL/L ALT (SGPT) 31 7 - 56 U/L Anion Gap 9 3 - 12 eGFR Non >60 >60 mL/min eGFR >60 >60 mL/min MAGNESIUM Collection Time: 02/06/18 3:34 AM Result Value Ref Range Magnesium 2.0 1.6 - 2.6 mg/dL PHOSPHORUS Collection Time: 02/06/18 3:34 AM Result Value Ref Range Phosphorus 4.7 (H) 2.0 - 4.0 MG/DL BNP (B-TYPE NATRIURETIC PEPTI) Collection Time: 02/06/18 3:58 AM Result Value Ref Range B Type Natriuretic Peptide 153.0 (H) 0 - 100 PG/ML MAGNESIUM Collection Time: 02/06/18 3:58 AM Result Value Ref Range Magnesium 2.0 1.6 - 2.6 mg/dL PHOSPHORUS Collection Time: 02/06/18 3:58 AM Result Value Ref Range Phosphorus 4.8 (H) 2.0 - 4.0 MG/DL TROPONIN-I Collection Time: 02/06/18 3:58 AM Result Value Ref Range Troponin-I 0.03 0.0 - 0.05 NG/ML COMPREHENSIVE METABOLIC PANEL Collection Time: 02/06/18 3:58 AM Result Value Ref Range Sodium 137 137 - 147 MMOL/L Potassium 4.4 3.5 - 5.1 MMOL/L Chloride 99 98 - 110 MMOL/L Glucose 105 (H) 70 - 100 MG/DL Blood Urea Nitrogen 36 (H) 7 - 25 MG/DL Creatinine 1.08 0.4 - 1.24 MG/DL Calcium 10.0 8.5 - 10.6 MG/DL Total Protein 7.2 6.0 - 8.0 G/DL Total Bilirubin 1.2 0.3 - 1.2 MG/DL Albumin 3.5 3.5 - 5.0 G/DL Alk Phosphatase 114 (H) 25 - 110 U/L AST (SGOT) 27 7 - 40 U/L CO2 27 21 - 30 MMOL/L ALT (SGPT) 27 7 - 56 U/L Anion Gap 11 3 - 12 eGFR Non >60 >60 mL/min eGFR >60 >60 mL/min CBC Collection Time: 02/06/18 3:58 AM Result Value Ref Range White Blood Cells 20.9 (H) 4.5 - 11.0 K/UL RBC 4.51 4.4 - 5.5 M/UL Hemoglobin 13.5 13.5 - 16.5 GM/DL Hematocrit 40.6 40 - 50 % MCV 90.1 80 - 100 FL MCH 30.0 26 - 34 PG MCHC 33.3 32.0 - 36.0 G/DL RDW 14.0 11 - 15 % Platelet Count 269 150 - 400 K/UL MPV 6.7 (L) 7 - 11 FL LACTIC ACID (BG - RAPID LACTATE) Collection Time: 02/06/18 3:58 AM Result Value Ref Range Lactic Acid,BG 1.4 0.5 - 2.0 MMOL/L URIC ACID Collection Time: 02/06/18 3:58 AM Result Value Ref Range Uric Acid 8.3 (H) 4.0 - 8.0 MG/DL Glucose: 99 (02/06/18 0220) POC Glucose (Download): (!) 105 (02/06/18 0321) Radiology and Other Diagnostic Procedures Review: Pertinent radiology reviewed. Jessica Olguin DO Pager [phone] Associated attestation - Lily Bello MD - 02/06/2018 6:38 AM CDT Formatting of this note may be different from the original. MICU STAFF NOTE I personally saw and evaluated the patient, performed the torres portions of the E/ M visit, discussed case with MICU housestaff team, and concur with documentation of history, physical exam, assessment, and treatment plan unless otherwise noted. Please see my separate progress note dated 02/06/18 for my evaluation and plan at time of initial assessment. Lily Bello [phone] * Fanny Colindres, PRODUCTION MACHINIST - 02/05/2018 7:16 AM CDT Formatting of this note may be different from the original. Pre Procedure History and Physical/Sedation Plan Procedure Date: 02/05/2018 Planned Procedure(s): gtube placement Chief Complaint: Dysphagia Previous Anesthetic/Sedation History: Denies adverse events Allergies: Patient has no known allergies. Medications: Scheduled Meds: etoposide (VEPESID) 209 mg in sodium chloride 0.9% (NS) 610.45 mL IVPB 100 mg/ m2 (Treatment Plan Recorded) Intravenous ONCE nicotine (NICODERM CQ STEP 1) 21 mg/day patch 1 patch 1 patch Transdermal QDAY OLANZapine (ZYPREXA) tablet 10 mg 10 mg Per NG tube QDAY ondansetron (ZOFRAN) 16 mg, dexamethasone (DECADRON) 8 mg in sodium chloride 0.9 % (NS) 58.8 mL IVPB Intravenous Q24H* senna/docusate (SENOKOT-S) solution 10 mL 10 mL Per NG tube BID Continuous Infusions: PRN and Respiratory Meds:albuterol 0.5% Q6H PRN, bisacodyl QDAY PRN, fentaNYL citrate PF Q3H PRN, hydrOXYzine TID PRN, ipratropium bromide Q6H PRN, LORazepam (ATIVAN) injection BID PRN, magnesium sulfate PRN AND Magnesium DAILY AM AND Notify Physician Ongoing, morphine injection syringe QDAY PRN, ondansetron (ZOFRAN) IV Q6H PRN, oxyCODONE/acetaminophen Q4H PRN, pancrelipase 20,000 Units/ sodium bicarbonate 650 mg(#) PRN (Capacitor Assembler from Rx), polyethylene glycol 3350 BID PRN, potassium chloride SR PRN OR potassium chloride PRN, sodium phosphate IVPB PRN (Capacitor Assembler from Rx) AND Phosphorus DAILY AM AND* * Notify Physician Ongoing Vital Signs: Last Filed Vital Signs: 24 Hour Range BP: 127/81 (02/05 701) Temp: 36.9 C (98.4 F) (02/05 705) Pulse: 99 (02/05 701) Respirations: 18 PER MINUTE (02/05 701) SpO2: 96 % (02/05 701) O2 Delivery: Face Shield (02/05 0445) SpO2 Pulse: 99 (02/05 701) BP: (115-141)/(69-86) Temp: [36.3 C (97.3 F)-36.9 C (98.4 F)] Pulse: [91-143] Respirations: [16 PER MINUTE-18 PER MINUTE] SpO2: [90 %-98 %] O2 Delivery: Face Shield Sedation/Medication Plan: Fentanyl and Midazolam Personal history of sedation complications: Denies adverse event. Family history of sedation complications: Denies adverse event. Medications for Reversal: Naloxone and Flumazenil Discussion/Reviews: Physician has discussed risks and alternatives of this type of sedation and above planned procedures with patient NPO Status: Acceptable Airway: airway assessment performed Mallampati III (soft palate, base of uvula visible) Head and Neck: no abnormalities noted, tracheostomy tube in place Mouth: no abnormalities noted Anesthesia Classification: ASA III (A patient with a severe systemic disease that limits activity, but is not incapacitating) Status: N/A Lab/Radiology/Other Diagnostic Tests Labs: Relevant labs reviewed I have examined the patient, and there are no significant changes in their condition, from the previous H&P performed on 02/04/18. Fanny Colindres, PRODUCTION MACHINIST Pager [phone] * Maria Dolores Vallejo, MSN,PRODUCTION MACHINIST - 02/03/2018 7:33 AM CDT Formatting of this note may be different from the original. Pre Procedure History and Physical/Sedation Plan Procedure Date: 02/03/2018 Planned Procedure(s): Chest port placement Chief Complaint: Cancer Previous Anesthetic/Sedation History: Denies adverse events Allergies: Patient has no known allergies. Medications: Scheduled Meds: enoxaparin (LOVENOX) syringe 40 mg 40 mg Subcutaneous QDAY(21) fentaNYL citrate PF (SUBLIMAZE) injection 25-50 mcg 25-50 mcg Intravenous ONCE midazolam (VERSED) injection 0.5-1 mg 0.5-1 mg Intravenous ONCE nicotine (NICODERM CQ STEP 1) 21 mg/day patch 1 patch 1 patch Transdermal QDAY senna/docusate (SENOKOT-S) solution 10 mL 10 mL Per NG tube BID Continuous Infusions: PRN and Respiratory Meds:albuterol 0.5% Q6H PRN, bisacodyl QDAY PRN, fentaNYL citrate PF Q3H PRN, ipratropium bromide Q6H PRN, LORazepam (ATIVAN) injection BID PRN, magnesium sulfate PRN AND Magnesium DAILY AM AND Notify Physician Ongoing, ondansetron (ZOFRAN) IV Q6H PRN, oxyCODONE/acetaminophen Q4H PRN, pancrelipase 20,000 Units/ sodium bicarbonate 650 mg(#) PRN (Capacitor Assembler from Rx), polyethylene glycol 3350 BID PRN, potassium chloride SR PRN OR potassium chloride PRN, sodium phosphate IVPB PRN (Capacitor Assembler from Rx) AND Phosphorus DAILY AM AND Notify Physician Ongoing Vital Signs: Last Filed Vital Signs: 24 Hour Range BP: 125/72 (02/03 729) Temp: 36.9 C (98.4 F) (02/03 729) Pulse: 102 (02/03 729) Respirations: 20 PER MINUTE (02/03 729) SpO2: 91 % (02/03 729) O2 Delivery: None (Room Air) (02/03 729) SpO2 Pulse: 101 (02/03 729) Height: 182.9 cm (72") (02/03 729) BP: (116-136)/(67-82) Temp: [36.5 C (97.7 F)-37.3 C (99.1 F)] Pulse: [95-110] Respirations: [16 PER MINUTE-20 PER MINUTE] SpO2: [91 %-98 %] O2 Delivery: None (Room Air) Sedation/Medication Plan: Conscious sedation Personal history of sedation complications: Denies adverse event. Family history of sedation complications: Denies adverse event. Medications for Reversal: Naloxone and Flumazenil Discussion/Reviews: Physician has discussed risks and alternatives of this type of sedation and above planned procedures with patient NPO Status: Acceptable Airway: airway assessment performed Mallampati II (soft palate, uvula, fauces visible). Tracheostomy in place. Trach does not pass the compression 2/2 tumor Head and Neck: no abnormalities noted Mouth: no abnormalities noted Anesthesia Classification: ASA III (A patient with a severe systemic disease that limits activity, but is not incapacitating) Status: Not Lab/Radiology/Other Diagnostic Tests Labs: Relevant labs reviewed I have examined the patient, and there are no significant changes in their condition, from the previous H&P performed on 02/02/18. Le Vallejo, MSN,PRODUCTION MACHINIST Pager [phone] * Oseas Valentine MD - 01/24/2018 5:13 PM CDT Formatting of this note may be different from the original. History and Physical Update Note Admission Date: 01/24/2018 Planned Procedure(s): Us guided rt supraclavicular mass bx Indication: mass Sedation/Medication Plan: Other Discussion/Reviews: Physician has discussed risks and alternatives of this type of sedation and above planned procedures with significant other, Reviewed appropriate: allergies, lab/diagnostic tests, patient history, review of systems and time and route of recently administered narcotics and sedatives and I have privileges for the planned sedation. Allergies: Patient has no allergy information on record. Vital Signs: Last Filed Vital Signs: 24 Hour Range BP: 116/79 (01/24 1700) Temp: 36.9 C (98.5 F) (01/24 1520) Pulse: 85 (01/24 170) Respirations: 11 PER MINUTE (01/24 170) SpO2: 100 % (01/24 170) O2 Delivery: Humidifier RA (01/24 1700) SpO2 Pulse: 85 (03/30 1700) Height: 201.2 cm (79.2") (01/24 1259) BP: (112-140)/(72-90) Temp: [36.2 C (97.2 F)-37 C (98.6 F)] Pulse: [85-123] Respirations: [11 PER MINUTE-26 PER MINUTE] SpO2: [92 %-100 %] O2 Delivery: Humidifier RA Intensity Pain Scale 0-10 (Pain 1): 5 (01/24/18 1530) Airway: Tracheostomy Anesthesia Classification: ASA III (A patient with a severe systemic disease that limits activity, but is not incapacitating) Lab/Radiology/Other Diagnostic Tests: Lab Results Component Value Date/Time HGB 14.4 01/24/2018 12:54 AM PLTCT 206 01/24/2018 12:54 AM WBC 18.9 (H) 01/24/2018 12:54 AM INR 1.2 01/24/2018 12:54 AM CR 0.99 01/24/2018 12:54 AM BUN 13 01/24/2018 12:54 AM I have examined the patient, and there are no significant changes in their condition, from the previous H&P performed on 01/24/2018. I have discussed the risks of the procedure with the patient and obtained informed consent. Oseas Valentine MD * Naomi Altman APRN - 01/24/2018 4:54 PM CDT Formatting of this note may be different from the original. 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 Then was seen by ENT in [place] who noted paralyzed vocal cords, CT neck showed large right sided mass & pt was sent to the ED in [place]. Underwent CT c/a/p w/ contrast showing infiltrating mass involving mediastinum, subcarinal & hilar regions b/l encompassing the pulm artery & ascending aorta as well as the trachea which is narrowed to ~6mm at level of clavicular heads. Pt transferred to 01/24 for further management. He was initially admitted to the floor. ENT, oncology, rad onc, CTS all consulted. Pt was taken to the OR for tracheostomy for airway stabilization. Admitted to ICU post op. Plan for IR tonight for core biopsy of mass. 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 Mass partially encases the ascending aorta & almost completely encases the main pulmonary artery. The trachea is also encompassed & is narrowed laterally. Trachea is narrowed to ~6mm at the level of clavicular heads. Small R pleural effusion. Sclerotic foci in several upper thoracic vertebral bodies, suspect for metastatic disease. - Tx to [facility] 01/24 & underwent tracheostomy for airway stabilization given tracheal narrowing; has 6.0 cuffed Shiley - Per ENT op note there was extrinsic compression of the trachea w/o e/o mucosal involvement of tumor or lesion, distally there was 50% compression of the trachea to level of the steve. Inferior edge of trach tube sits at least 1 cm above area of compression. The trach does not pass through the area of compression. - CXR (01/24):Fullness & widening of the upper mediastinum & bilateral katia, corresponding to the anterior mediastinal mass/lymphadenopathy on the outside CT. Small right pleural effusion - AFP 2.0, LDH 367, CRP 2.41 - Currently tolerating trach shield 40% Plan - IR consulted for biopsy of neck mass - Oncology, radiation oncology, ENT all consulted, f/u recs - Fentanyl PRN Tobaccoism - Smokes 1.5 packs of cigarettes per day x20 yrs - Nicotine patch/smoking cessation counseling ordered CV - No acute issues - Hemodynamically stable GI - Hold on corpak placement tonight w/ IR biopsy, would plan to put one in tomorrow for nutrition RENAL - No acute issues - Cr 0.99, voids ENDO - BG WNL - Check TSH ID Leukocytosis - Likely r/t neck mass, no infectious symptoms 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 I spent 60 minutes providing critical care services including: performing a physical examination serially reviewing laboratory, telemetry, hemodynamic, oximetry, and respiratory data reviewing radiographic images reviewing medications managing fluids/electrolytes, antibiotics, ICU prophylaxis, and oxygenation developing the overall plan of care Patient seen and discussed with Dr. Saritha Altman [facility] Pulmonary Critical Care Pager [phone] pager [phone] Primary Care Physician: No Pcp, Na HISTORY OF PRESENT ILLNESS: Kelvin Zaldivar is a 42 y.o. 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 Then was seen by ENT in [place] who noted paralyzed vocal cords, CT neck showed large right sided mass & pt was sent to the ED in [place]. Underwent CT c/a/p w/ contrast showing infiltrating mass involving mediastinum, subcarinal & hilar regions b/l encompassing the pulm artery & ascending aorta as well as the trachea which is narrowed to ~6mm at level of clavicular heads. MRI brain was unremarkable. Pt transferred to for further management. He was initially admitted to the floor. ENT, oncology, rad onc, CTS all consulted. Pt was taken to the OR for tracheostomy for airway stabilization. Admitted to ICU post op. Plan for IR tonight for core biopsy of mass. PMH: Past Medical History: Diagnosis Date Tobacco abuse PSH: History reviewed. No pertinent surgical history. SOCIAL HISTORY: Social History Social History Marital status: Single Spouse name: N/A Number of children: N/A Years of education: N/A Social History Main Topics Smoking status: Not on file Smokeless tobacco: Not on file Alcohol use Not on file Drug use: Unknown Sexual activity: Not on file Other Topics Concern Not on file Social History Narrative No narrative on file FAMILY HISTORY: Family History Problem Relation Age of Onset Cancer Father IMMUNIZATIONS: There is no immunization history on file for this patient. ALLERGIES: Patient has no allergy information on record. HOME MEDICATIONS: No prescriptions prior to admission. Review of Systems General: no fevers, chills Skin: no rashes, skin changes HEENT: no headache, +neck pain from trach Neck: no neck stiffness Respiratory: intermittent shortness of breath, +cough w/ bloody sputum Cardiac: no chest pain Gastrointestinal: no n/v, diarrhea, constipation, abdominal pain, +recent dysphagia Urinary: no dysuria Extremities: no edema Neurologic: no weakness Hematologic: no recent bleeding, blood clots Physical Exam General Appearance: No apparent distress, lethargic, sitting upright in bed Skin: no rashes, lesions HEENT: PERRL, MMM, trach site c/d/i, scant bloody secretions w/ cough, R soft neck mass, painful to touch Chest and Lungs: Clear breath sounds anteriorly, no wheezes, respirations non- labored Heart: RRR Abdomen: soft, nondistended, non tender to palpation, +BS Genitourinary: voids Extremities: warm, no peripheral edema, palpable pulses Neurologic: lethargic but easily arousable & interactive, PATRICIA Laboratory: Recent Labs 01/24/18 0054 NA 133* K 4.1 CL 101 CO2 21 GAP 11 BUN 13 CR 0.99 GLU 101* CA 9.7 ALBUMIN 4.1 Recent Labs 01/24/18 0054 WBC 18.9* HGB 14.4 HCT 42.4 PLTCT 206 INR 1.2 AST 15 ALT 10 ALKPHOS 107 Estimated Creatinine Clearance: 109.9 mL/min (based on SCr of 0.99 mg/dL). Vitals: 01/24/18 0048 01/24/18 1259 Weight: 79.1 kg (174 lb 6.1 oz) 79.1 kg (174 lb 6.1 oz) No results for input(s): PHART, PO2ART in the last 72 hours. Invalid input(s): PC02A Vital Signs: Last Filed Vital Signs: 24 Hour Range BP: 115/73 (01/24 1645) Temp: 36.9 C (98.5 F) (01/24 1520) Pulse: 88 (01/24 1645) Respirations: 13 PER MINUTE (01/24 1645) SpO2: 97 % (01/24 1645) O2 Delivery: Humidifier RA (01/24 1645) SpO2 Pulse: 88 (01/24 1645) Height: 201.2 cm (79.2") (01/24 1259) BP: (112-140)/(72-90) Temp: [36.2 C (97.2 F)-37 C (98.6 F)] Pulse: [88-123] Respirations: [13 PER MINUTE-26 PER MINUTE] SpO2: [92 %-100 %] O2 Delivery: Humidifier RA Intensity Pain Scale 0-10 (Pain 1): 5 (01/24/18 1530) Vitals: 01/24/18 0048 01/24/18 1259 Weight: 79.1 kg (174 lb 6.1 oz) 79.1 kg (174 lb 6.1 oz) Radiology and Other Diagnostic Procedures Review: Reviewed Associated attestation - Miguel Shipley MD - 01/24/2018 7:52 PM CDT Formatting of this note may be different from the original. ATTESTATION I personally performed the torres portions of the E/M visit, discussed case with Nurse Practitioner and concur with documentation of history, physical exam, assessment, and treatment plan unless otherwise noted. Please see separate note for initial assessment and plan. Staff name: Miguel Shipley MD * Meggan Hooper MBBS - 01/24/2018 1:25 AM CDT Formatting of this note may be different from the original. Update to the H&P I updated the patient this morning about the plan and his condition. I spoke with the oncology and recommended radiation oncology consult. I spoke with ENT and they recommended transfer to MICU for closer monitoring of his airway. As he received Lovenox this morning his surgery is scheduled for mid afternoon today. I spoke with upon critical care fellow Dr. Marvin Flores and they accepted the patient. Mr. Zaldivar will go straight to MICU after the surgery. Overall, he satting well on room air and reports being fine. He reports some discomfort around the neck and has been getting morphine for pain. Patient was very tearful this morning about his neck mass. Emotional support provided. - Strict NPO - Monitor airway closely. Page ENT stat if needed - ENT, oncology, CTS,radiation oncology consulted. Appreciate their reccs Pt was seen and discussed with ALTAGRACIA Barlow Internal Medicine Resident-PGY3 Pager- [phone] Admission History and Physical Examination Name: Kelvin Zaldivar Admission Date: 01/24/2018 Assessment/Plan: Active Problems: Neck mass Mr Zaldivar is a 42 year old male with no significant past medical history presenting with neck mass encasing aorta and airway, transferred on 01/24 from [facility]. 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 -Patient has seen ENT Dr. Yun for loss of voice of 3 weeks duration on January 23, laryngoscopy showed paralyzed vocal cord. -In the ED on January 23 at [facility], CT scan of the neck with contrast showed soft tissue mass in the right neck and right supraclavicular lesion with mass-effect on the airway. -CT chest was done and showed infiltrating mass involving the mediastinum, subcarinal, and hilar regions bilaterally. This is highly suspicious for neoplasm, possibly lymphoma. Mass partially encases the ascending aorta and almost completely encases the main pulmonary artery. The trachea is also ingrown past and is narrowed laterally the trachea is narrowed to approximately 6 mm at the level of the clavicular heads. Small right pleural effusion. Sclerotic foci in several upper thoracic vertebral bodies, suspect for metastatic disease. -MRI brainshowed no metastases. -We don't have a pathological diagnosis. Plan: -Monitor for any airway compromise -ENT consult for possible trach?? -CTS consult and oncology consult, obtaining biopsy versus starting radiation directly. 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 FEN: no fluids, correct electrolytes and NPO for possible procedures DVT: Lovenox Code: FULL Disposition: admit to medicine __ Primary Care Physician: No primary care provider on file. Verified Chief Complaint: Neck mass History of Present Illness: Kelvin Zaldivar is a 42 y.o. male with no significant past medical hx except for heavy smoking presenting for mass encasing aorta and trachea. History goes back to 3 weeks ago, patient lost his voice and was thought he had the flu or ear infection so he was given amoxicillin with no improvement after that he was given steroids but he didn't improve so he saw ENT Dr carrington who did a laryngoscope and found vocal cord paralysis so he sent patient to ED for imaging. Plan was to get biopsy but when CT chest showed mass encasing aorta and trachea decision was to transfer to . Patient reports no ear pain, he reports difficulty swallowing and hasn't been eating much, he denies nausea, no vomiting, occasional cough no hemoptysis, he denies fever, he reports right chest pain and difficulty breathing. Patient smokes 1.5 pack per day for more than 20 years. Past Medical History: Diagnosis Date Tobacco abuse No past surgical history on file. No family history on file. Social History Social History Marital status: N/A Spouse name: N/A Number of children: N/A Years of education: N/A Social History Main Topics Smoking status: Not on file Smokeless tobacco: Not on file Alcohol use Not on file Drug use: Unknown Sexual activity: Not on file Other Topics Concern Not on file Social History Narrative No narrative on file Immunizations (includes history and patient reported): There is no immunization history on file for this patient. Allergies: Patient has no allergy information on record. Medications: No prescriptions prior to admission. Review of Systems: A 14 point review of systems was negative except for: Constitutional: positive for fatigue Eyes: positive for none Ears, nose, mouth, throat, and face: positive for voice change Respiratory: positive for cough, sputum or dyspnea on exertion Cardiovascular: positive for chest pain, fatigue Gastrointestinal: positive for dysphagia and decreased appetite Genitourinary: positive for none Integument/breast: positive for none Hematologic/lymphatic: positive for lymphadenopathy Physical Exam: Vital Signs: Last Filed In 24 Hours Vital Signs: 24 Hour Range BP: 131/85 (01/25 48) Temp: 36.2 C (97.2 F) (01/25 48) Pulse: 108 (01/24 53) Respirations: 22 PER MINUTE (01/24 53) SpO2: 98 % (01/24 53) Height: 201.2 cm (79.2") (01/25 48) BP: (131)/(85) Temp: [36.2 C (97.2 F)] Pulse: [108-123] Respirations: [22 PER MINUTE-26 PER MINUTE] SpO2: [98 %-100 %] General: Alert, cooperative, no distress, appears stated age Head: Normocephalic, without obvious abnormality, atraumatic Eyes: Conjunctivae/corneas clear. PERRL, EOMs intact. Throat: Lips, mucosa and tongue normal. Teeth and gums normal Neck: Supple, assymmetrical, cervical adenopathy, patient has JVD and right neck mass that is tender on palpation Lungs: Clear to auscultation bilaterally Heart: Regular rate and rhythm, S1, S2 normal, no murmur, click rub or gallop Abdomen: Soft, non-tender. Bowel sounds normal. No masses. No organomegaly. Extremities: Extremities normal, atraumatic, no cyanosis or edema Lab/Radiology/Other Diagnostic Tests: 24-hour labs: Results for orders placed or performed during the hospital encounter of (from the past 24 hour(s)) CBC AND DIFF Collection Time: 01/24/18 12:54 AM Result Value Ref Range White Blood Cells 18.9 (H) 4.5 - 11.0 K/UL RBC 4.80 4.4 - 5.5 M/UL Hemoglobin 14.4 13.5 - 16.5 GM/DL Hematocrit 42.4 40 - 50 % MCV 88.4 80 - 100 FL MCH 30.0 26 - 34 PG MCHC 33.9 32.0 - 36.0 G/DL RDW 13.9 11 - 15 % Platelet Count 206 150 - 400 K/UL MPV 7.2 7 - 11 FL Neutrophils 89 (H) 41 - 77 % Lymphocytes 5 (L) 24 - 44 % Monocytes 5 4 - 12 % Eosinophils 1 0 - 5 % Basophils 0 0 - 2 % Absolute Neutrophil Count 16.80 (H) 1.8 - 7.0 K/UL Absolute Lymph Count 1.00 1.0 - 4.8 K/UL Absolute Monocyte Count 0.90 (H) 0 - 0.80 K/UL Absolute Eosinophil Count 0.20 0 - 0.45 K/UL Absolute Basophil Count 0.00 0 - 0.20 K/UL PROTIME INR (PT) Collection Time: 01/24/18 12:54 AM Result Value Ref Range INR 1.2 0.8 - 1.2 COMPREHENSIVE METABOLIC PANEL Collection Time: 01/24/18 12:54 AM Result Value Ref Range Sodium 133 (L) 137 - 147 MMOL/L Potassium 4.1 3.5 - 5.1 MMOL/L Chloride 101 98 - 110 MMOL/L Glucose 101 (H) 70 - 100 MG/DL Blood Urea Nitrogen 13 7 - 25 MG/DL Creatinine 0.99 0.4 - 1.24 MG/DL Calcium 9.7 8.5 - 10.6 MG/DL Total Protein 7.6 6.0 - 8.0 G/DL Total Bilirubin 0.8 0.3 - 1.2 MG/DL Albumin 4.1 3.5 - 5.0 G/DL Alk Phosphatase 107 25 - 110 U/L AST (SGOT) 15 7 - 40 U/L CO2 21 21 - 30 MMOL/L ALT (SGPT) 10 7 - 56 U/L Anion Gap 11 3 - 12 eGFR Non >60 >60 mL/min eGFR >60 >60 mL/min Glucose: (!) 101 (01/24/18 0054) Pertinent radiology reviewed. Heidi Barker MD Pager [phone] Associated attestation - Carlos Anne DO - 01/24/2018 2:30 PM CDT Formatting of this note may be different from the original. ATTESTATION I personally performed the torres portions of the E/M visit, discussed case and rounded on the patient with the daytime medicine team, reviewed Dr. Jean's H &P and concur with resident documentation of history, physical exam, assessment , and treatment plan unless otherwise noted. Please see Dr. Hooper's documentation from today for update of plan of care. Problem list Reviewed: Active Problems: Neck mass SVC (superior vena cava obstruction) Leukocytosis Hyponatremia Tobacco abuse Diagnosis unknown Any updated/additional History as noted below: Past Medical History: Diagnosis Date Tobacco abuse History reviewed. No pertinent surgical history. Social History Social History Marital status: Single Spouse name: N/A Number of children: N/A Years of education: N/A Social History Main Topics Smoking status: Not on file Smokeless tobacco: Not on file Alcohol use Not on file Drug use: Unknown Sexual activity: Not on file Other Topics Concern Not on file Social History Narrative No narrative on file Family History Problem Relation Age of Onset Cancer Father Allergies: Patient has no allergy information on record. Staff name: Carlos Anne DO Date: 01/24/2018 in this encounter Consult Notes * Jossy Vargas RD - 02/12/2018 1:12 PM CDT Associated Order(s): CONSULT DIETITIAN CLINICAL NUTRITION Clinical Nutrition Follow-Up Summary Nutrition Assessment of Patient: Malnutrition Assessment: Malnutrition present Malnutrition Context: ICD-10 code E44: Acute illness/Moderate non-severe malnutrition Current Oral Intake: Inadequate Estimated Calorie Needs: 2220-2595kcal (30-35kcal/kg present wt) Estimated Protein Needs: 96-111g (1.3-1.5g/kg present wt) Oral Diet Order: Mechanical Soft Current EN Order: Bolus feeds of Isosource 1.5, 1 carton x5 daily, provides 1875kcal, 85g protein, and 950ml free water. Comment: 42 yo M with no PMH admit on 01/24 as transfer from OSH after CT showed large neck/chest mass and concern for high risk airway. He is s/p trach on . Pt rapid responded to MICU early 02/06 for hypoxia. Now weaned/tolerating TS. EN had initially been given via corpak, goal rate reached by 4/10 AM; switched via g-tube after placement 02/06. However patient has had constipation & nocturnal nausea, limiting tolerance of EN rate advancements- has been off/ on. Bolus feeds ordered 02/11, pt denies any intolerance. Feels confident that he can feed himself at home. Note NCM working on setting up EN upon d/c, pt's insurance does not cover TF formula. Pt meets criteria for nutrition assistance fund, will provide a case of TF upon d/c. Current bolus feed order does not meet estimated needs, will provide updated recs. Recommendation: Due to malnutrition and high estimated calorie/protein needs, recommend bolus feeds of Nutren 2.0, 1 carton x5 daily to provide 2500 kcal, 105g protein, and 863 ml free water. Additional 250 ml free water QID. Intervention / Plan: Monitor EN adequacy, tolerance, and appropriateness, encouraging minimized EN holds. Monitor wt trends, meds, labs, and GI health. Nutrition Diagnosis: Nutrition Diagnosis: Inadequate oral intake Etiology: altered GI function/dysphagia Signs & Symptoms: NPO with need for non oral nutrition support Goals: EN tolerated and meeting >75% of nutritional needs Time Frame: Within 72 Hours Status: Not met;Ongoing Jossy Vargas RD, LD [phone] * Gabo Howard MD - 02/02/2018 12:18 PM CDT Associated Order(s): CONSULT ADULT PSYCHIATRY PHYSICIAN Formatting of this note may be different from the original. PSYCHIATRY CONSULT NOTE Room/Bed: NI4160/01 Admission Date: 01/24/2018 LOS: 9 days Consult type: Opinion with orders Reason for Consult: Anxiety "New cancer diagnosis. Severe anxiety. Please assist with management." Assessment: 1. Adjustment Reaction with anxious distress Recommendations: Would cautiously use Benzodiazepines as pt currently on opioids as well with hx of recent trach placement. Can do Ativan 0.5mg BID PRN for acute anxiety. Offered psychology consult to discuss coping skills while inpatient, pt declined Psychiatry will follow as needed at this time. Seen and discussed with: Dr. Ragsdale Please feel free to contact us with any additional questions or concerns by paging the consult team between 8am and 5pm on weekdays and between 8am and 3pm on weekends at [phone]. Otherwise, page the vice president medical affairs insurance verification specialist. Chief Concern: Anxiety History of Present Illness: Kelvin Zaldivar is a 42 y.o. male with no past psychiatric hx presenting with newly discovered neck mass and dysphonia. 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 Trach placed on 01/24 due to airway compromise. Psychiatry consulted to address anxiety given his new cancer diagnosis. Per Rn at bedside, pt was very anxious and was currently being given Ativan 0.5mg IV . He reports benefit from this medication that has been given during his stay here. He reports his current anxiety is directly related to his new diagnosis. States he may have had some panic symptoms a few nights ago (sweating /palpitations) but denies past panic attacks. He reports no past psychiatric history and has not experienced significant anxiety until his admission here. He denies symptoms of ptsd or dylan. He reports "alright" mood, denies feelings of depression or anhedonia currently. Does state having some difficulty sleeping in the hospital currently but at baseline has no difficulties. Denies SI/HI at this time. Denies hx of maxim or AVH/psychosis. Access to firearms? Reports guns at home, in safe place Past Psychiatric History: No past psychiatric hx including diagnoses, having a provider, hospitalizations , or past suicide attempts. Family Psychiatric History: Denies Substance Use: Tobacco: Over 20year hx of smoking 1.5ppd. Denies alcohol or other illicit substance use. Psychosocial/Substance History: Born: [place], [place] Raised by: parents, grandma Hx of Abuse: denies Family/Siblings: 2 sisters, close to 1 of them Level of Education: high school Occupational Status: employed Main source of Income: job Relationships: Has fiance over 5 years, 1 sixteen yo daughter Current Living Situation: with fiance and daughter in [place] Social History Social History Marital status: Single Spouse name: N/A Number of children: N/A Years of education: N/A Social History Main Topics Smoking status: Current Every Day Smoker Smokeless tobacco: Never Used Alcohol use No Drug use: No Sexual activity: Yes Partners: Female Other Topics Concern Not on file Social History Narrative No narrative on file Past Medical/Surgical History: Past Medical History: Diagnosis Date Tobacco abuse : Past Surgical History: Procedure Laterality Date TRACHEOSTOMY N/A 01/24/2018 TRACHEOSTOMY performed by Jorge Neff MD at [facility] BRONCHOSCOPY N/A 01/24/2018 BRONCHOSCOPY Through tracheostomy performed by Jorge Neff MD at [facility] : Home Medications: No prescriptions prior to admission. Hospital Medications: Scheduled Meds: enoxaparin (LOVENOX) syringe 40 mg 40 mg Subcutaneous QDAY(21) nicotine (NICODERM CQ STEP 1) 21 mg/day patch 1 patch 1 patch Transdermal QDAY senna/docusate (SENOKOT-S) solution 10 mL 10 mL Per NG tube BID Continuous Infusions: PRN and Respiratory Meds:albuterol 0.5% Q6H PRN, bisacodyl QDAY PRN, fentaNYL citrate PF Q3H PRN, ipratropium bromide Q6H PRN, LORazepam (ATIVAN) injection Q4H PRN, magnesium sulfate PRN AND Magnesium DAILY AM AND Notify Physician Ongoing, ondansetron (ZOFRAN) IV Q6H PRN, oxyCODONE/acetaminophen Q4H PRN, pancrelipase 20,000 Units/ sodium bicarbonate 650 mg(#) PRN (Capacitor Assembler from Rx), polyethylene glycol 3350 BID PRN, potassium chloride SR PRN OR potassium chloride PRN, sodium phosphate IVPB PRN (Capacitor Assembler from Rx) AND Phosphorus DAILY AM AND Notify Physician Ongoing : Allergies: Patient has no known allergies. Review of Systems: A 14 point review of systems was negative except for: Musculoskeletal: positive for upper chest wall pain Vital Signs: Last Filed in 24 hours Vital Signs: 24 hour Range BP: 129/82 (02/02 1020) Temp: 36.8 C (98.3 F) (02/020) Pulse: 98 (02/020) Respirations: 20 PER MINUTE (02/03 1020) SpO2: 93 % (02/03 1020) O2 Delivery: Trach Shield (02/03 1020) SpO2 Pulse: 108 (02/01 1954) BP: (115-136)/(70-89) Temp: [36.7 C (98.1 F)-36.9 C (98.4 F)] Pulse: [94-100] Respirations: [16 PER MINUTE-24 PER MINUTE] SpO2: [93 %-99 %] O2 Delivery: Trach Shield Mental Status Evaluation: General/Constitutional: 42yo M, appears stated age, in hospital attire, good hygiene Eye Contact: good Behavior: calm and cooperative Speech: nl rate/tone/vol Mood: "alright" Affect: restricted Thought Process: linear, goal directed Thought Content: denies si/hi Perception: denies avh Associations: intact Insight/Judgment: good/good Orientation: aaox4 Recent and remote memory: intact Attention span and concentration: intact/sustained Cognition: intact Language: bruneian Fund of knowledge and vocabulary: average Focused Physical Exam: Neuro: alert, no tremor Musculoskeletal: moves all extremities General: trach in place, no acute distress. Lab/Radiology/Other Diagnostic Tests: 24-hour labs: Results for orders placed or performed during the hospital encounter of (from the past 24 hour(s)) CBC AND DIFF Collection Time: 02/02/18 2:46 AM Result Value Ref Range White Blood Cells 18.7 (H) 4.5 - 11.0 K/UL RBC 4.46 4.4 - 5.5 M/UL Hemoglobin 13.3 (L) 13.5 - 16.5 GM/DL Hematocrit 40.3 40 - 50 % MCV 90.4 80 - 100 FL MCH 29.8 26 - 34 PG MCHC 32.9 32.0 - 36.0 G/DL RDW 13.9 11 - 15 % Platelet Count 281 150 - 400 K/UL MPV 7.1 7 - 11 FL Neutrophils 91 (H) 41 - 77 % Lymphocytes 3 (L) 24 - 44 % Monocytes 5 4 - 12 % Eosinophils 1 0 - 5 % Basophils 0 0 - 2 % Absolute Neutrophil Count 17.10 (H) 1.8 - 7.0 K/UL Absolute Lymph Count 0.60 (L) 1.0 - 4.8 K/UL Absolute Monocyte Count 0.90 (H) 0 - 0.80 K/UL Absolute Eosinophil Count 0.10 0 - 0.45 K/UL Absolute Basophil Count 0.00 0 - 0.20 K/UL COMPREHENSIVE METABOLIC PANEL Collection Time: 02/02/18 2:46 AM Result Value Ref Range Sodium 138 137 - 147 MMOL/L Potassium 4.2 3.5 - 5.1 MMOL/L Chloride 102 98 - 110 MMOL/L Glucose 118 (H) 70 - 100 MG/DL Blood Urea Nitrogen 29 (H) 7 - 25 MG/DL Creatinine 0.86 0.4 - 1.24 MG/DL Calcium 9.4 8.5 - 10.6 MG/DL Total Protein 6.8 6.0 - 8.0 G/DL Total Bilirubin 0.4 0.3 - 1.2 MG/DL Albumin 3.3 (L) 3.5 - 5.0 G/DL Alk Phosphatase 114 (H) 25 - 110 U/L AST (SGOT) 26 7 - 40 U/L CO2 27 21 - 30 MMOL/L ALT (SGPT) 24 7 - 56 U/L Anion Gap 9 3 - 12 eGFR Non >60 >60 mL/min eGFR >60 >60 mL/min TROPONIN-I Collection Time: 02/02/18 2:46 AM Result Value Ref Range Troponin-I 0.02 0.0 - 0.05 NG/ML Gabo Howard MD Associated attestation - Miguelito Ragsdale MD - 02/02/2018 9:50 PM CDT Formatting of this note may be different from the original. ATTESTATION I personally performed the torres portions of the E/M visit, discussed the case with the resident and concur with resident documentation of history, physical exam, assessment, and treatment plan unless otherwise noted. I personally participated in development of the plan of care. Please feel free to contact us with any additional questions or concerns by paging the consult team between 8am and 5pm on weekdays and between 8am and 3pm on weekends [phone]. Otherwise, page the vice president medical affairs insurance verification specialist. Staff name: Miguelito Ragsdale MD Date: 02/02/2018 * Jessica Zimmerman RD - 01/25/2018 2:27 PM CDT Associated Order(s): CONSULT DIETITIAN CLINICAL NUTRITION Clinical Nutrition Assessment Summary Nutrition Assessment of Patient: BMI Categories Adult: Acceptable: 18.5-24.9 Unintentional Weight Loss: 5% in 1 month (significant) Malnutrition Assessment: Malnutrition present Malnutrition Context: ICD-10 code E44: Acute illness/Moderate non-severe malnutrition Current Oral Intake: NPO Estimated Calorie Needs: 1415-9749 (28-32 kcal/kg admit wt of 79.1 kg) Estimated Protein Needs: 95-115 (1.2-1.5 g/kg admit wt) Oral Diet Order: NPO Current EN Order: isosource 1.5 with goal rate of 45 mL/hr + 2 prosource protein packets. (not yet started) 42 yo M with no PMH admit on 01/24 as transfer from OSH after CT showed large neck/chest mass and concern for high risk airway. He is now s/p trach, corpak placement (NG). RD consulted for tube feeding recommendation. Pt is able to provide nutritional hx by giving yes/no answers and mouthing words. He reports he is about 10 lb down from his normal weight of 185 lb, thinks he has lost this weight in the past month or so. He states he was able to eat prior to trach placement but it was progressively becoming more difficult. Explained plan for receiving nutrition via corpak until he is either able to get a PEG or eat safely by mouth. Pt agrees to this, reports no food intolerances/allergies at baseline. Corpak tip is currently in the stomach. Recommendation: Change tube feeding order to isosource 1.5 with goal rate of 65 mL/hr, no prosource packets needed. Additional H2O flush of 125 mL q6hr. This will provide 2340 kcal, 106 g protein and 2059 mL free water. Intervention / Plan: start tube feeding to provide 28-32 kcal/kg to promote wt maintenance EN rec, monitor tolerance/adequacy Monitor wt/labs/intakes Nutrition Diagnosis: Nutrition Diagnosis: Inadequate oral intake Etiology: altered GI function/dysphagia Signs & Symptoms: NPO with need for non oral nutrition support Goals: EN tolerated and meeting >75% of nutritional needs Time Frame: Within 72 Hours Jessica Zimmerman, , RD, LD, CNSC *[id number] * Morales Lundberg MD - 01/24/2018 10:42 PM CDT Associated Order(s): CONSULT RADIATION ONCOLOGY PHYSICIAN Formatting of this note may be different from the original. General Consult Note ATTESTATION I personally performed the torres portions of the E/M visit, discussed case with resident and concur with resident documentation of history, physical exam, assessment, and treatment plan unless otherwise noted. I discussed management plan directly with Luzma Guido of medical oncology. Seen on 01.24.18. Staff name: Morales Lundberg MD Date: 01/25/2018 Admission Date: 01/24/2018 LOS: 0 days Reason for Consult: Obstructive mediastinal mass Consult type: Opinion Assessment/Plan Mr. Zaldivar is a 42 yo man admitted from an OSH with obstructive airway symptoms , found to have a large mediastinal mass on imaging, s/p trach and biopsy. We will await final pathology to make final recommendations, though we discussed with the patient that this is likely malignancy. Differential includes lymphoma , thymoma, germinoma, thyroid cancer, teratoma. Agree with laboratory work up to this point. We will follow the patient closely and after pathology has returned, revisit the patient if radiation is appropriate. Christy Mcgovern MD Radiation Oncology Resident PGY4 Pager [phone] History of Present Illness: Kelvin Zaldivar is a 42 y.o. male who presented with obstructive airway symptoms who was found to have a large mediastinal mass on imaging, status post tracheostomy and biopsy. Radiation oncology was consulted for recommendations regarding treatment. The patient's family said that his voice has gotten down to a whisper and he had been having difficulty swallowing his food. He would often choke when eating solids for the past few weeks. He developed a neck mass as well. He began having difficulty breathing and presented to the hospital in [place], [place]. Imaging showed a large mediastinal mass and he was transferred to for management. A tracheostomy was placed to protect his airway. Biopsy of the neck mass was performed at the bedside. Past Medical History: Diagnosis Date Tobacco abuse History reviewed. No pertinent surgical history. Social History Social History Marital status: Single Spouse name: N/A Number of children: N/A Years of education: N/A Social History Main Topics Smoking status: Not on file Smokeless tobacco: Not on file Alcohol use Not on file Drug use: Unknown Sexual activity: Not on file Other Topics Concern Not on file Social History Narrative No narrative on file Family history reviewed; non-contributory Allergies: Patient has no allergy information on record. Scheduled Meds: nicotine (NICODERM CQ STEP 1) 21 mg/day patch 1 patch 1 patch Transdermal QDAY Continuous Infusions: dexmedetomidine (PRECEDEX) 400 mcg in sodium chloride 0.9% (NS) 100 mL IV infusion 0.7 mcg/kg/hr (01/24/181954) PRN and Respiratory Meds:fentaNYL citrate PF Q2H PRN, LORazepam (ATIVAN) injection Once PRN, magnesium sulfate PRN AND [START ON 01/25/2018] Magnesium DAILY AM AND Notify Physician Ongoing, potassium chloride SR PRN * *OR potassium chloride PRN, sodium phosphate IVPB PRN (Capacitor Assembler from Rx) AND [START ON 01/25/2018] Phosphorus DAILY AM AND Notify Physician Ongoing Review of Systems: A 14 point review of systems was negative except for: pating is in bed, head at an angle, sleeping Vital Signs: Last Filed in 24 hours Vital Signs: 24 hour Range BP: 104/79 (01/24 2100) Temp: 36.9 C (98.4 F) (01/25 2000) Pulse: 77 (01/24 2100) Respirations: 17 PER MINUTE (01/24 2100) SpO2: 99 % (01/24 2100) O2 Delivery: Trach Shield (01/24 2100) SpO2 Pulse: 78 (01/24 2100) Height: 201.2 cm (79.2") (01/24 1259) BP: (104-140)/(67-90) Temp: [36.2 C (97.2 F)-37 C (98.6 F)] Pulse: [77-123] Respirations: [11 PER MINUTE-26 PER MINUTE] SpO2: [92 %-100 %] O2 Delivery: Trach Shield Physical Exam: General appearance: asleep, in bed with head raised trach in place Lab/Radiology/Other Diagnostic Tests: 24-hour labs: Results for orders placed or performed during the hospital encounter of (from the past 24 hour(s)) CBC AND DIFF Collection Time: 01/24/18 12:54 AM Result Value Ref Range White Blood Cells 18.9 (H) 4.5 - 11.0 K/UL RBC 4.80 4.4 - 5.5 M/UL Hemoglobin 14.4 13.5 - 16.5 GM/DL Hematocrit 42.4 40 - 50 % MCV 88.4 80 - 100 FL MCH 30.0 26 - 34 PG MCHC 33.9 32.0 - 36.0 G/DL RDW 13.9 11 - 15 % Platelet Count 206 150 - 400 K/UL MPV 7.2 7 - 11 FL Neutrophils 89 (H) 41 - 77 % Lymphocytes 5 (L) 24 - 44 % Monocytes 5 4 - 12 % Eosinophils 1 0 - 5 % Basophils 0 0 - 2 % Absolute Neutrophil Count 16.80 (H) 1.8 - 7.0 K/UL Absolute Lymph Count 1.00 1.0 - 4.8 K/UL Absolute Monocyte Count 0.90 (H) 0 - 0.80 K/UL Absolute Eosinophil Count 0.20 0 - 0.45 K/UL Absolute Basophil Count 0.00 0 - 0.20 K/UL PROTIME INR (PT) Collection Time: 01/24/18 12:54 AM Result Value Ref Range INR 1.2 0.8 - 1.2 COMPREHENSIVE METABOLIC PANEL Collection Time: 01/24/18 12:54 AM Result Value Ref Range Sodium 133 (L) 137 - 147 MMOL/L Potassium 4.1 3.5 - 5.1 MMOL/L Chloride 101 98 - 110 MMOL/L Glucose 101 (H) 70 - 100 MG/DL Blood Urea Nitrogen 13 7 - 25 MG/DL Creatinine 0.99 0.4 - 1.24 MG/DL Calcium 9.7 8.5 - 10.6 MG/DL Total Protein 7.6 6.0 - 8.0 G/DL Total Bilirubin 0.8 0.3 - 1.2 MG/DL Albumin 4.1 3.5 - 5.0 G/DL Alk Phosphatase 107 25 - 110 U/L AST (SGOT) 15 7 - 40 U/L CO2 21 21 - 30 MMOL/L ALT (SGPT) 10 7 - 56 U/L Anion Gap 11 3 - 12 eGFR Non >60 >60 mL/min eGFR >60 >60 mL/min C REACTIVE PROTEIN (CRP) Collection Time: 01/24/18 12:54 AM Result Value Ref Range C-Reactive Protein 2.41 (H) <1.0 MG/DL BETA-HCG Collection Time: 01/24/18 12:54 AM Result Value Ref Range Beta-HCG,Serum 1 <5 U/L LDH-LACTATE DEHYDROGENASE Collection Time: 01/24/18 12:54 AM Result Value Ref Range Lactate Dehydrogenase 367 (H) 100 - 210 U/L PROCALCITONIN Collection Time: 01/24/18 2:16 AM Result Value Ref Range Procalcitonin 0.06 <0.10 NG/ML LACTIC ACID(LACTATE) Collection Time: 01/24/18 2:16 AM Result Value Ref Range Lactic Acid 1.2 0.5 - 2.0 MMOL/L ALPHA FETO PROTEIN (AFP) Collection Time: 01/24/18 2:16 AM Result Value Ref Range Alpha Feto Protein 2.0 0.0 - 15.0 NG/ML CBC Collection Time: 01/24/18 5:30 PM Result Value Ref Range White Blood Cells 20.7 (H) 4.5 - 11.0 K/UL RBC 4.45 4.4 - 5.5 M/UL Hemoglobin 13.6 13.5 - 16.5 GM/DL Hematocrit 39.9 (L) 40 - 50 % MCV 89.7 80 - 100 FL MCH 30.5 26 - 34 PG MCHC 34.0 32.0 - 36.0 G/DL RDW 13.6 11 - 15 % Platelet Count 190 150 - 400 K/UL MPV 7.3 7 - 11 FL BASIC METABOLIC PANEL Collection Time: 01/24/18 5:30 PM Result Value Ref Range Sodium 130 (L) 137 [...] 10.6 MG/DL eGFR Non >60 >60 mL/min eGFR >60 >60 mL/min MAGNESIUM Collection Time: 01/24/18 5:30 PM Result Value Ref Range Magnesium 1.9 1.6 - 2.6 mg/dL PHOSPHORUS Collection Time: 01/24/18 5:30 PM Result Value Ref Range Phosphorus 3.9 2.0 - 4.0 MG/DL TSH WITH FREE T4 REFLEX Collection Time: 01/24/18 5:30 PM Result Value Ref Range TSH 2.030 0.35 - 5.00 MCU/ML URINALYSIS DIPSTICK Collection Time: 01/24/18 6:00 PM Result Value Ref Range Color,UA YELLOW Turbidity,UA 1+ (A) CLEAR-CLEAR Specific [place]-Urine 1.029 1.003 - 1.035 pH,UA 5.0 5.0 - 8.0 Protein,UA NEG NEG-NEG Glucose,UA NEG NEG-NEG Ketones,UA 1+ (A) NEG-NEG Bilirubin,UA NEG NEG-NEG Blood,UA NEG NEG-NEG Urobilinogen,UA NORMAL NORM-NORMAL Nitrite,UA NEG NEG-NEG Leukocytes,UA NEG NEG-NEG Urine Ascorbic Acid, UA NEG NEG-NEG URINALYSIS, MICROSCOPIC Collection Time: 01/24/18 6:00 PM Result Value Ref Range WBCs,UA 0-2 0 - 2 /HPF RBCs,UA 0-2 0 - 3 /HPF MucousUA TRACE SODIUM-URINE RANDOM Collection Time: 01/24/18 6:00 PM Result Value Ref Range Sodium, Random 146 MMOL/L CREATININE-URINE RANDOM Collection Time: 01/24/18 6:00 PM Result Value Ref Range Creatinine, Random 222 MG/DL OSMOLALITY-URINE RANDOM Collection Time: 01/24/18 6:00 PM Result Value Ref Range Osmolality-Urine 847 50 - 1,400 MOS/KG Pertinent radiology reviewed. Chest 2 Views Result Date: 01/24/2018 Procedure: CHEST 2 VIEWS Clinical Indication: Neck mass Comparison: External CT chest January 23, 2018 Findings: The heart size is normal without pulmonary venous congestion. There is fullness and widening of the upper mediastinum and bilateral katia. Small right pleural effusion. No pneumothorax. 1. Fullness and widening of the upper mediastinum and bilateral katia, corresponding to the anterior mediastinal mass/lymphadenopathy on the outside CT. 2. Small right pleural effusion. Approved by Antonio Nicholson M.D. on 2017 8:58 AM By my electronic signature, I attest that I have personally reviewed the images for this examination and formulated the interpretations and opinions expressed in this report Finalized by Saundra Anne M.D. on 01/24/2018 10 :20 AM. Dictated by Antonio Nicholson M.D. on 01/24/2018 7:[address] [facility] [place] [facility] shows the large mediastinal mass leading to obstructed airway. Christy Mcgovern MD Radiation Oncology Resident PGY4 Pager [phone] * Winsome Guido APRN - 01/24/2018 8:29 AM CDT Associated Order(s): CONSULT ONCOLOGY PHYSICIAN Formatting of this note may be different from the original. Oncology Consult Note Admission Date: 01/24/2018 LOS: 0 days Reason for Consult: Patient transferred from outside ED after CT chest abdomen pelvis with contrast that showed a 10.8 cm mass that extends from his neck to his chest area that does appear to be compressing his airway, involving his aortic arch, encompassing his aorta and pulmonary artery. Please comment on further management including possible radiation to shrink mass Consult type: Opinion Assessment/Plan Neck Mass - Diff dx including lymphoma, germ cell, thyroid malignancy - Presented with hoarse/scratchy throat, dysphonia, noted a palpable right lower neck mass, progressive dyspnea - OSH CT chest- 10.8 cm mass extending from neck to chest, compressing airway involving his aortic arch, encompassing his aorta and pulmonary artery - ENT, CTS, Rad onc consulted - Current tobacco use- 1.5 pack/day 20 + years - LDH elevated at 367, Beta HCG (wnl) 1, AFP (wnl) 2 - Testicular exam w/o mass - 01/24/18: Bronchoscopy, tracheostomy - 01/14/18: IR core biopsy of right supraclavicular mass OSH Imaging: - CT neck: right supraclavicular mass (10.8 cm) no discrete thyroid mass - CT neck- infiltrative soft tissue mass, extends to right supraclavicular region, involving mediastinal subcarinal, hilar regions, trachea narrowed - MRI Donald- negative for evident mass [facility] Radiology Review (per verbal report) - Diffuse right neck adenopathy, with significant trachea narrowing, diffuse lower neck adenopathy, separate from thyroid (no discrete thyroid mass seen) - Hilar, mediastinal small right pleural effusion, liver lesions too small to characterized, enlarged retroperitoneal lymph nodes Plan - Wide differential remains, will await cytology for definitive diagnosis and treatment recommendations. Tumor markers negative for suspected germ cell malignancy - Secure airway with tracheotomy placement, no indication for steroids at this time - Depending on cytology results, treatment plan evolving (systemic treatment+/- radiation) - Radiation oncology following Thank you for this consult. Please page with any questions. Patient seen and discussed with Dr. Pan. History of Present Illness: Kelvin Zaldivar is a 42 y.o. male admitted in transfer from [place], [place] with new finding of large neck mass (10.8 cm) extending into chest and mediastinum. Patient reports he was in his usual state of health up to 3 weeks ago, when he then lost his voice (now able to whisper), Developed orthopnea, cough, and palpable right neck mass. He reports progressive dysphagia. Denies any muscle weakness, increased fatigue, facial drooping, vision changes. He denies any previous significant past medical history. 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 reports current tobacco use (1.5 packs/day for 10 + years). No fever, chills, night sweats, pain or weight loss. Oncology consulted regarding ongoing work up and treatment recommendations. Past Medical History: Diagnosis Date Tobacco abuse No past surgical history on file. Social History Social History Marital status: N/A Spouse name: N/A Number of children: N/A Years of education: N/A Social History Main Topics Smoking status: Not on file Smokeless tobacco: Not on file Alcohol use Not on file Drug use: Unknown Sexual activity: Not on file Other Topics Concern Not on file Social History Narrative No narrative on file Family History Problem Relation Age of Onset Cancer Father Allergies: Patient has no known allergies. Scheduled Meds: Continuous Infusions: PRN and Respiratory Meds:morphine injection syringe Q4H PRN Review of Systems: Constitutional: negative for fevers, chills, weight loss Eyes: negative for visual disturbance ENT: negative for nasal congestion, epistaxis, positive for palpable neck mass, sore throat Respiratory: negative for cough, hemoptysis, positive for cough, orthopnea, dyspnea on exertion Cardiovascular: negative for chest pain, lower extremity edema Gastrointestinal: negative for dysphagia, nausea, vomiting, diarrhea, constipation, abdominal pain, positive for dysphagia Genitourinary:negative for frequency, dysuria Integument/breast: negative for rash Hematologic/lymphatic: negative for bleeding Musculoskeletal:negative for myalgias, back pain Neurological: negative for headaches, dizziness, coordination problems Behavioral/Psych: negative for altered mental status Vital Signs: Last Filed in 24 hours Vital Signs: 24 hour Range BP: 140/84 (01/24 700) Temp: 36.3 C (97.3 F) (01/24 700) Pulse: 102 (01/24 700) Respirations: 20 PER MINUTE (01/24 700) SpO2: 96 % (01/24 700) O2 Delivery: None (Room Air) (01/24 700) Height: 201.2 cm (79.2") (01/25 48) BP: (131-140)/(76-85) Temp: [36.2 C (97.2 F)-36.9 C (98.5 F)] Pulse: [99-123] Respirations: [20 PER MINUTE-26 PER MINUTE] SpO2: [96 %-100 %] O2 Delivery: None (Room Air) Physical Exam: General appearance: alert, cooperative, no distress Head: normocephalic, atraumatic Eyes: PERRL Neck: palpable right neck mass Throat: lips, mucosa, and tongue normal. Teeth and gums normal Lungs: diminished in bases Heart: regular rate and rhythm Abdomen: soft, non-tender. Bowel sounds normal, No masses, no organomegaly : Testicular exam negative for any mass Extremities: extremities normal, atraumatic, BUE edema Neurologic: no focal deficits Pulses:2+ and symmetric Skin: No rash Lab/Radiology/Other Diagnostic Tests: 24-hour labs: Results for orders placed or performed during the hospital encounter of (from the past 24 hour(s)) CBC AND DIFF Collection Time: 01/24/18 12:54 AM Result Value Ref Range White Blood Cells 18.9 (H) 4.5 - 11.0 K/UL RBC 4.80 4.4 - 5.5 M/UL Hemoglobin 14.4 13.5 - 16.5 GM/DL Hematocrit 42.4 40 - 50 % MCV 88.4 80 - 100 FL MCH 30.0 26 - 34 PG MCHC 33.9 32.0 - 36.0 G/DL RDW 13.9 11 - 15 % Platelet Count 206 150 - 400 K/UL MPV 7.2 7 - 11 FL Neutrophils 89 (H) 41 - 77 % Lymphocytes 5 (L) 24 - 44 % Monocytes 5 4 - 12 % Eosinophils 1 0 - 5 % Basophils 0 0 - 2 % Absolute Neutrophil Count 16.80 (H) 1.8 - 7.0 K/UL Absolute Lymph Count 1.00 1.0 - 4.8 K/UL Absolute Monocyte Count 0.90 (H) 0 - 0.80 K/UL Absolute Eosinophil Count 0.20 0 - 0.45 K/UL Absolute Basophil Count 0.00 0 - 0.20 K/UL PROTIME INR (PT) Collection Time: 01/24/18 12:54 AM Result Value Ref Range INR 1.2 0.8 - 1.2 COMPREHENSIVE METABOLIC PANEL Collection Time: 01/24/18 12:54 AM Result Value Ref Range Sodium 133 (L) 137 - 147 MMOL/L Potassium 4.1 3.5 - 5.1 MMOL/L Chloride 101 98 - 110 MMOL/L Glucose 101 (H) 70 - 100 MG/DL Blood Urea Nitrogen 13 7 - 25 MG/DL Creatinine 0.99 0.4 - 1.24 MG/DL Calcium 9.7 8.5 - 10.6 MG/DL Total Protein 7.6 6.0 - 8.0 G/DL Total Bilirubin 0.8 0.3 - 1.2 MG/DL Albumin 4.1 3.5 - 5.0 G/DL Alk Phosphatase 107 25 - 110 U/L AST (SGOT) 15 7 - 40 U/L CO2 21 21 - 30 MMOL/L ALT (SGPT) 10 7 - 56 U/L Anion Gap 11 3 - 12 eGFR Non >60 >60 mL/min eGFR >60 >60 mL/min C REACTIVE PROTEIN (CRP) Collection Time: 01/24/18 12:54 AM Result Value Ref Range C-Reactive Protein 2.41 (H) <1.0 MG/DL LACTIC ACID(LACTATE) Collection Time: 01/24/18 2:16 AM Result Value Ref Range Lactic Acid 1.2 0.5 - 2.0 MMOL/L Pertinent radiology reviewed. АЛЕКСАНДР Lopez [phone] Associated attestation - AnWinsome Goncalves MD - 01/24/2018 9:00 PM CDT Formatting of this note may be different from the original. ATTESTATION I personally performed the torres portions of the E/M visit, discussed case with Nurse Practitioner and concur with documentation of history, physical exam, assessment, and treatment plan unless otherwise noted. Staff name: Winsome Goncalves MD Date: 01/24/2018 I interviewed and examined this patient with oncology SOLE STAINER and confirmed the history and physical findings outlined below. I have personally reviewed laboratory and imaging studies and discussed results with the patient and medical team. Together we formulated the assessment and recommendations outlined below. A brief summary of the history of the present illness is as follows: Kelvin Zaldivar is a 42 y.o. gentleman who presented with dyspnea and dysphonia and was noted to have vocal cord paralysis. He underwent imaging That revealed a large mass extending from thoracic inlet down into mediastinum and compressing great vessels. He underwent urgent tracheostomy and core biopsy of supraclavicular mass. I reviewed the rest of the patient's recent and PMH, PSH, meds, allergies, FH, SH and ROS. All are detailed in the consultation note by oncology SOLE STAINER and I would refer you to it for additional details with which I concur. I saw and examined the patient and reviewed with oncology SOLE STAINER. Please refer to the consult note for additional details with which I concur. Pertinent findings are as follows: Constitutional: Patient laying supine, sedated ENT: Fresh tracheostomy Resp: Unlabored respirations I agree with assessment and recommendations as outlined. My brief summary of the assessment and recommendations are as follows: 1. Mediastinal malignancy: - Continues to have a broad differential. Although normal AFP and bHCG are normal, this does not definitively rule out germ cell tumor. Classically the differential would include germ cell tumor, lymphoma, thymoma/thymic carcinoma, thyroid malignancy. - He is niirhxuzxy-duw-zqixlt ill at this time, therefore we believe it would be in his best interest to wait for pathology results to initiate treatment as the diagnosis could dramatically change the treatment of choice and we do not wish to deprive this patient of optimally-tailored treatment. - Previously discussed with MICU team our recommendation to specifically request flow cytometry on biopsy specimen, which they ordered. Thank you for involving us in the care of this patient. We will continue to follow with you. in this encounter Miscellaneous Notes * Case Mgmt DC Plan - Fanny White - 02/14/2018 10:24 AM CDT Formatting of this note may be different from the original. Case Management Progress Note NAME:Kelvin Zaldivar :1975 AGE: 42 y.o. ADMISSION DATE: 01/24/2018 DAYS ADMITTED: LOS: 21 days Todays Date: 02/14/2018 Plan NCM reviewed EMR and discussed with primary team. NCM verified with s.o.Britany that all equipment has been delivered to bedside. Pt will discharge home today. Pt has been changed back to [employer]. S.O.will utilize [facility] resources and [employer] to obtain tube feed formula. Interventions ? Support Support: Patient Education, Pt/Family Updates re:POC or DC Plan ? Info or Referral Information or Referral to Community Resources: Safety Net Resources and/or Follow-up Care (Primary SW and Rad Onc SW coordinating radiation treatments to be done in [place]) ? Discharge Planning Discharge Planning: (per Lamont Betts, pt set up for trach supplies and tube feeding supplies) ? Medication Needs Medication Needs: Medication Assistance Resources in the Community ([facility] can provide 3 case isosource per month) ? Financial Financial: No Needs Identified ? Legal Legal: No Needs Identified ? Other Other/None: No needs identified Disposition ? Expected Discharge Date Expected Discharge Date: 02/14/18 ? Transportation Does the patient need discharge transport arranged?: No Transportation Name, Phone and Availability #1: Significant Other: Britany Penny ([phone]) Does the patient use Medicaid Transportation?: No ? Next Level of Care (Acute Psych discharges only) ? Discharge Disposition Durable Medical Equipment - Selection Complete Service Request Status Selected Specialties Address Phone Number Fax Number [facility] Selected DME Services [phone] [facility] [id number] Destination No service has been selected for the patient. Home Care No service has been selected for the patient. Dialysis/Infusion No service has been selected for the patient. Fanny White RN, BSN, NCM [phone] * Critical Results - Mame Willoughby RN - 02/13/2018 3:10 PM CDT Critical result or procedure called (document test and value, and read back): WBC 0.8 Time MD/SOLE STAINER Notified: 1512 MD/SOLE STAINER Name: Dr. Deedee BARNES/SOLE STAINER Response/Orders Given: No new orders at this time. Will continue to monitor. * Case Mgmt DC Plan - Fanny White - 02/13/2018 12:58 PM CDT Formatting of this note may be different from the original. Case Management Progress Note NAME:Kelvin Zaldivar :1975 AGE: 42 y.o. ADMISSION DATE: 01/24/2018 DAYS ADMITTED: LOS: 20 days Todays Date: 02/13/2018 Plan Covering NCM received multiple calls from [facility] and [facility] regarding DME set up and delivery. NCM discussed with local liasion Lamont, patient,and significant other. All DME will be delivered to bedside. NCM faxed new orders for Nutren formula. Anticipate discharge home tomorrow. Portable suction currently at bedside. Awaiting delivery of: enteral formula, oral yankauers, 12Fr suction catheters, air compressor, nebulizer bottle, aerosol tubing, trach mask, sterile water, HME's, saline bullets, and trach cleaning kits. Interventions ? Support Support: Patient Education, Pt/Family Updates re:POC or DC Plan ? Info or Referral Information or Referral to Community Resources: Safety Net Resources and/or Follow-up Care (Primary SW and Rad Onc SW coordinating radiation treatments to be done in [place]) ? Discharge Planning Discharge Planning: (per Lamont with [facility], pt set up for trach supplies and tube feeding supplies) ? Medication Needs Medication Needs: Co-Pay Check ? Financial ? Legal ? Other Disposition ? Expected Discharge Date Expected Discharge Date: 02/14/18 ? Transportation Does the patient need discharge transport arranged?: No Transportation Name, Phone and Availability #1: Significant Other: Britany Penny ([phone]) Does the patient use Medicaid Transportation?: No ? Next Level of Care (Acute Psych discharges only) ? Discharge Disposition Durable Medical Equipment - Selection Complete Service Request Status Selected Specialties Address Phone Number Fax Number [facility] Selected DME Services [phone] [facility] [address] [place] Destination No service has been selected for the patient. Home Care No service has been selected for the patient. Dialysis/Infusion No service has been selected for the patient. Fanny White RN, BSN, [facility] [phone] * Case Mgmt DC Plan - Fanny White - 02/11/2018 2:23 PM CDT Formatting of this note may be different from the original. Case Management Progress Note NAME:Kelvin Zaldivar :1975 AGE: 42 y.o. ADMISSION DATE: 01/24/2018 DAYS ADMITTED: LOS: 18 days Todays Date: 02/11/2018 Plan Covering NCM reviewed EMR and discussed with primary SW and attending. Anticipate discharge home or Saturday. Pt had trach placed 01/24. Pt has been declined by multiple home health agencies due to geographical location, limited insurance coverage, and care needs. [facility], [facility], [facility], [facility], [facility], [facility], [facility], and [facility] have all declined. Primary SW investigating coverage for outpatient therapies. Bedside RN and SW have arranged for patient and s.o.to receive teaching at bedside on trach care. Pt will be returning to daily for radiation treatments and per attending physician, pt will f/u with Oncology. [facility] has accepted to provide tube feed supplies and trach care supplies. CIPRIANO verified with Lamont, from [facility], that portable suction will be delivered to bedside, and the remaining items will be delivered to the home. Tube feed formula is not covered by insurance. NCM spoke with [facility] , and they could provide 3 cases per month if s.o.is able to pick this up. NCM discussed with [facility] [employer] to request funding for assistance. Covering NCM will continue to assist with ongoing discharge planning. Interventions ? Support Support: Pt/Family Updates re:POC or DC Plan ? Info or Referral Information or Referral to Community Resources: Safety Net Resources and/or Follow-up Care (Per attending, pt will f/u with oncology. pt to have Radiation treatments here at main campus) ? Discharge Planning Discharge Planning: (per Lamont with [facility], pt set up for trach supplies and tube feeding supplies) ? Medication Needs Medication Needs: Co-Pay Check ? Financial ? Legal ? Other Disposition ? Expected Discharge Date Expected Discharge Date: 02/14/18 ? Transportation Does the patient need discharge transport arranged?: No Transportation Name, Phone and Availability #1: Significant Other: Britany Penny ([phone]) Does the patient use Medicaid Transportation?: No ? Next Level of Care (Acute Psych discharges only) ? Discharge Disposition Durable Medical Equipment - Selection Complete Service Request Status Selected Specialties Address Phone Number Fax Number [facility] Selected DME Services [phone] [facility] [id number] Destination No service has been selected for the patient. Home Care No service has been selected for the patient. Dialysis/Infusion No service has been selected for the patient. Fanny White RN, BSN, [facility] [phone] * Case Mgmt DC Leora Conteh - 02/11/2018 11:31 AM CDT Request for Benefits Received request from [facility] Minna Lovelace to check outpatient PT benefits for patient. Outpatient PT Benefits: Subject to deductible, coinsurance and out of pocket max. Must be prescribed by a physician Deductible: $2500 Deductible Remaining: $0 Coinsurance: 20% OOP Max: $4500 OOP Max met: $2280.43 OOP Remaining: $2219.57 Once OOP Max is met the patient is covered at 100% Leora Fontana Forger Helper For further assistance please contact [facility] Minna Lovelace *[phone] * Case Mgmt DC Plan - Minna Lovelace - 02/11/2018 11:04 AM CDT Formatting of this note may be different from the original. Case Management Progress Note NAME:Kelvin Zaldivar :1975 AGE: 42 y.o. ADMISSION DATE: 01/24/2018 DAYS ADMITTED: LOS: 18 days Todays Date: 02/11/2018 Plan Discharge plan ongoing Interventions ? Support ? Info or Referral ? Discharge Planning Discharge Planning: Durable Medical Equipment and Supplies, Home Infusion- Enteral-TPN, Home Health SHAHZAD spoke to Dr. Banda- pt may be ready for discharge /Saturday if he is able to tolerate tube feeds. SW spoke to RN- she will be working with pt on administrating feeds himself. Pt will have SO come to [facility] for trach teaching. Per bedside RN she has spoke with RT who will assist with trach teaching. SHAHZAD spoke to Maria Dolores Webb with PT, he will work with pt today and update SW on recommendation. SHAHZAD again spoke to PT after he worked with pt. Pt has improved since PT session yesterday. He feels pt will be safe to return home and will continue to improve throughout hospital stay. Per PT, pt wishes to return home. SHAHZAD and Dr. Banda met with pt to discuss wishes at discharge. Pt would like oncology and radiation appointments moved closer to his home. Pt stated [place] would be closest town. SW asked Pt if he would want to stay at [facility], pt declined. Pt's girlfriend will be at [facility] and Saturday for teaching. Will plan for discharge Saturday if pt and SO are comfortable with trach /peg maintainence. SW provided in-network list for outpt PT near his home and explained benefits. SHAHZAD spoke to Ivet Guido, she will arrange for pt to have oncology appointment in [place]. SHAHZAD spoke to Esthela Cantor/onc SHAHZAD. She will explore options for radiation closer to pt's home. SHAHZAD will continue to follow and assist with discharge planning ? Medication Needs Medication Needs: Co-Pay Check ? Financial ? Legal ? Other Disposition ? Expected Discharge Date Expected Discharge Date: 02/14/18 ? Transportation Does the patient need discharge transport arranged?: No Transportation Name, Phone and Availability #1: Significant Other: Britany Penny ([phone]) Does the patient use Medicaid Transportation?: No ? Next Level of Care (Acute Psych discharges only) ? Discharge Disposition Durable Medical Equipment No service has been selected for the patient. Destination No service has been selected for the patient. Home Care No service has been selected for the patient. Dialysis/Infusion No service has been selected for the patient. Minna Lovelace LMSW *[phone] * Case Mgmt DC Plan - Tory Mcbride RN - 02/11/2018 8:47 AM CDT Formatting of this note may be different from the original. Case Management Progress Note NAME:Kelvin Zaldivar :1975 AGE: 42 y.o. ADMISSION DATE: 01/24/2018 DAYS ADMITTED: LOS: 18 days Todays Date: 02/11/2018 Plan Interventions ? Support ? Info or Referral voice mail from Britany received 02/11. Called [phone] and unable to leave message as it is not set up. ? Discharge Planning Discharge Planning: Durable Medical Equipment and Supplies, Home Infusion- Enteral-TPN, Home Health ? Medication Needs Medication Needs: Co-Pay Check ? Financial ? Legal ? Other Disposition ? Expected Discharge Date Expected Discharge Date: 02/14/18 ? Transportation Does the patient need discharge transport arranged?: No Transportation Name, Phone and Availability #1: Significant Other: Britany Penny ([phone]) Does the patient use Medicaid Transportation?: No ? Next Level of Care (Acute Psych discharges only) ? Discharge Disposition Durable Medical Equipment No service has been selected for the patient. [facility] Destination No service has been selected for the patient. [facility] Home Care No service has been selected for the patient. [facility] Dialysis/Infusion No service has been selected for the patient. Ryan Mcbride RN MSN ONC Nurse Biophysics Professor Pg [phone] * Case Mgmt DC Plan - Tacos Karimi - 02/10/2018 3:11 PM CDT Formatting of this note may be different from the original. Case Management Progress Note NAME:Kelvin Zaldivar :1975 AGE: 42 y.o. ADMISSION DATE: 01/24/2018 DAYS ADMITTED: LOS: 17 days Todays Date: 02/10/2018 Plan Discharge planning ongoing Transfer to floor PT/OT/ST and ongoing education for Trach/PEG needs Interventions ? Support ? Info or Referral ? Discharge Planning Discharge Planning: Durable Medical Equipment and Supplies, Home Infusion- Enteral-TPN, Home Health SHAHZAD reviewed progress notes and discussed patient with ICU Team and RNCM. Transfer to floor. Ongoing Radiation and chemotherapy. SW awaiting exact plan for treatments to assist with discharge planning. PT/OT/ST following and may recommend IPR consult. Awaiting sessions from today. SW tasked SILL WORKER to check benefits. Patient has limited options for HH at discharge due to the area he lives in ([place], [place]). SNF/IPR Benefits In-Network Copay $0 Deductible remaining $0 Coinsurance after deductible 80/20 Out of Pocket Max remaining $2216.57 SNF Days/IPR Days remaining 60 SW awaiting further guidance from PT/OT for discharge planning. SW and RNCM will continue to follow and keep patient/ apprised of recommendations and options. ? Medication Needs Medication Needs: Co-Pay Check Lovenox would likely cost $65 month ? Financial [employer] ? Legal ? Other Disposition ? Expected Discharge Date Expected Discharge Date: 02/14/18 ? Transportation Does the patient need discharge transport arranged?: No Transportation Name, Phone and Availability #1: Significant Other: Britany Penny ([phone]) Does the patient use Medicaid Transportation?: No ? Next Level of Care (Acute Psych discharges only) ? Discharge Disposition Tacos Karimi LMSW [phone] (phone) [phone] (pager) * Case Mgmt DC Plan - Hilda Michael - 02/10/2018 2:33 PM CDT Formatting of this note may be different from the original. In-Network IPR and SNF Benefits Summary for Kelvin Zaldivar Requested by: ROBBY Yousif Benefit(s) checked: IPR and SNF Payor: COVENTRY / Plan: COVENTRY PPO / Product Type: PPO / ( ) [employer] Chocolate Dipper: Crystal Lezama Reference Number: [id number] Pt's Plan Active: Yes Effective Date: 10/28/2017 Benefit Period: Calendar Year Prior Auth Required: Yes: (P: [phone]) SNF/IPR Benefits In-Network Copay $0 Deductible remaining $0 Coinsurance after deductible 80/20 Out of Pocket Max remaining $2216.57 SNF Days/IPR Days remaining 60 This telegraphic typewriter operator chief provided ROBBY Yousif with a directory of IPRs and SNFs that are in-network with pt's primary payer. Hilda Michael Forger Helper For additional assistance, please contact ROBBY Yousif *[phone] * Case Mgmt DC Plan - Tory Mcbride RN - 02/10/2018 10:20 AM CDT Formatting of this note may be different from the original. Case Management Progress Note NAME:Kelvin Zaldivar :1975 AGE: 42 y.o. ADMISSION DATE: 01/24/2018 DAYS ADMITTED: LOS: 17 days Todays Date: 02/10/2018 Plan Discharge planning Med check Interventions ? Support ? Info or Referral ? Discharge Planning ? Discharge Planning: Durable Medical Equipment and Supplies, Home Infusion- Enteral-TPN, ? Medication Needs ? Medication Needs: Co-Pay Check ? Lovenox- preferred generic-enoxaparin- likely is a $65 copay. ? Financial ? Legal ? Other Disposition ? Expected Discharge Date Expected Discharge Date: 02/11/18 ? Transportation Does the patient need discharge transport arranged?: No Transportation Name, Phone and Availability #1: Significant Other: Britany Penny ([phone]) Does the patient use Medicaid Transportation?: No ? Next Level of Care (Acute Psych discharges only) ? Discharge Disposition recommendation is Inpt by therapy. This is a good option since 8 agencies available in patient area are not able to provide services due to insurance or staffing not available. Durable Medical Equipment No service has been selected for the patient. [facility] Destination No service has been selected for the patient. Home Care No service has been selected for the patient. Dialysis/Infusion No service has been selected for the patient. Ryan Mcbride RN MSN ONC Nurse Biophysics Professor Pg [phone] * Transfer - Homa Owen MD - 02/09/2018 1:31 PM CDT In-Hospital Transfer Note Admission Diagnosis: Undifferentiated Adenocarcinoma, Superior Vena Cava Obstruction Admission Date: 01/24/2018 Active Hospital Problem List: Active Problems: Neck mass SVC (superior vena cava obstruction) Leukocytosis Hyponatremia Tobacco abuse Carcinoma of unknown origin (HCC) Airway compromise Anxiety Acute and chronic respiratory failure with hypoxia (HCC) Hospital Course: Mr. Zaldivar is a 42 year old male with acute on chronic hypoxemic respiratory failure in the setting of high grade, poorly- differentiated adenocarcinoma of unknown primary with dominant neck/mediastinal mass compressing trachea/great vessels with SVC syndrome and requiring trach/ peg. He was transferred to the ICU on 02/06/18 following [employer] for progressive hypoxemia and rising O2 requirements with ABG 7.5/37/55 on FiO2 100% NRB following new PEG placement and complaints of abdominal pain limiting respiratory mechanics. CXR with new loss/obscuration of bilateral diaphragms suggesting BLL atelectasis/infiltrates, R effusion. Overall impression is that of acute on chronic hypoxemic respiratory failure in the setting of high grade, poorly-differentiated adenocarcinoma of unknown primary with dominant neck/mediastinal mass compressing trachea/great vessels with SVC syndrome and requiring trach/peg. Temporal relation of decompensation following PEG placement with post-operative pain and splinting suggests a large component of atelectasis with shunting. However, given elevated wbc and acute decompensation he was treated empirically with Zosyn with plans to de-escalate to Augmentin to finish out a 7 day course. His cuff-less trach was exchanged for cuffed Shiley and he was placed on positive pressure ventilation for PEEP effect to recruit atelectatic alveoli; pulmonary hygiene measures including lavage/suctioning, IPV, and scheduled bronchodilators. He improved quickly and has been on trach shield >24 hours on FiO2 of 0.4 to 0.5. He had significant abdominal pain which is gradually, but slowly improving with decreasing opioid requirement. He was changed from oxycodone to tramadol on with breakthrough fentanyl. Repeat KUB without any concerning findings. He did have significant stool burden and was given Movantik for constipation. Last BM on 02/08. He also also had some nausea possibly due to opioids. Tube feeds were held the evening of 02/09 due to nausea, but have been restarting at low rate and are being advanced as tolerated. He was also found to have bilateral UE DVTs for which he is being anticoagulated with therapeutic lovenox. Significant Medication Information (to include antibiotic duration/indication, anticoagulation and steroids, etc.): Zosyn, plan to de-escalate to Augmentin on 02/10. Continue for total of 7 day duration (start date 02/06). Procedures With Dates: He is to undergo a video swallow on 02/10 and next dose ( 6th dose) of XRT on 02/10 AM. Consults: Speech, Onc, Cytopathologist, Psych Follow-Up Items: De-escalate abx on 02/10 and complete 7 day course. Activity/Weight bearing status: As tolerated, PT & OT following. Nutrition: Tube feeds; video swallow on 02/10 per Speech Discharge Plan: Transition to Med/Surg status on 02/09. Per fitness center attendant, patient does not have options for home health and thus will need to be able to complete care for tracheostomy and PEG tube on his own/with assistance of significant other on discharge. This patient was accepted in transfer to [facility]Private from MICU by Dr. Banda on 02/09/18. Will transfer care to [facility] when a bed is available. Please continue to page M1 ICU Team until further notification. Homa Owen MD Team Pager [phone] * Case Mgmt DC Tory Valerio RN - 02/07/2018 2:10 PM CDT Formatting of this note may be different from the original. Case Management Progress Note NAME:Kelvin Zaldivar :1975 AGE: 42 y.o. ADMISSION DATE: 01/24/2018 DAYS ADMITTED: LOS: 14 days Todays Date: 02/07/2018 Plan Discharge planning Interventions ? Support ? Info or Referral Have been unable to find a Home health agency that takes patient's insurance and/or has the ability to provide care for patient's needs. 8 agencies called. ? Discharge Planning Discharge Planning: Durable Medical Equipment and Supplies, Home Infusion- Enteral-TPN, Home Health [facility] [phone] will need to be notified when patient is near discharge in order to bring portable suction to the hospital to take with him. Then the enteral and trach, humidity supplies to be delivered to patient's home. Family to be educated on suction when delivered. Family will need to be educated on home care/trach care/suctioning since very unlikely that home health will be found. ? Medication Needs ? Financial ? Legal ? Other Disposition ? Expected Discharge Date Expected Discharge Date: 02/10/18 ? Transportation Does the patient need discharge transport arranged?: No Transportation Name, Phone and Availability #1: Significant Other: Britany Penny ([phone]) Does the patient use Medicaid Transportation?: No ? Next Level of Care (Acute Psych discharges only) ? Discharge Disposition Durable Medical Equipment No service has been selected for the patient. Destination No service has been selected for the patient. Home Care No service has been selected for the patient. Dialysis/Infusion No service has been selected for the patient. Ryan Mcbride RN MSN ONC Nurse Biophysics Professor Pg [phone] * Case Mgmt DC Tory Valerio RN - 02/06/2018 10:42 AM CDT Formatting of this note may be different from the original. Case Management Progress Note NAME:Kelvin Zaldivar :1975 AGE: 42 y.o. ADMISSION DATE: 01/24/2018 DAYS ADMITTED: LOS: 13 days Todays Date: 02/06/2018 Plan Discharge planning Interventions ? Support ? Info or Referral ? Discharge Planning Discharge Planning: Durable Medical Equipment and Supplies, Home Infusion- Enteral-TPN, Home Health Patient transferred to ICU overnight. Contacted [facility] with Roxane to inform of patient's status and likely no discharge for next few days. She would inform the [place], [place] branch of this. Contacted [facility] and spoke with Hollis. She relates that they are not in network with patient's insurance. Spoke to Joyce with [facility] [phone]. They doesn't do HH in that area. Spoke with Miracle with [facility] [phone]. They don't go to [facility]. Spoke with Leighann at [facility] [address] [phone]. They don't cross into [place]. Spoke with Nitza at [facility] [phone]. She wasn't sure about the insurance but requested information be faxed to [phone] for staff services manager to review. [facility] called back stating that they do not have staffing to meet patient's needs. Medication Needs ? Financial ? Legal ? Other Disposition ? Expected Discharge Date Expected Discharge Date: 02/10/18 ? Transportation Does the patient need discharge transport arranged?: No Transportation Name, Phone and Availability #1: Significant Other: Britany Penny ([phone]) Does the patient use Medicaid Transportation?: No ? Next Level of Care (Acute Psych discharges only) ? Discharge Disposition Durable Medical Equipment No service has been selected for the patient. Destination No service has been selected for the patient. Home Care No service has been selected for the patient. Dialysis/Infusion No service has been selected for the patient. Ryan Mcbride RN MSN ONC Nurse Biophysics Professor Pg [phone] * Response Teams - Shira Motley RN - 02/06/2018 3:43 AM CDT Rapid Response Team Progress Note Date: 02/06/2018 Time: 3:43 AM Patient: Kelvin Zaldivar Attending: Vadim Johnson MD Service: Med-Oncology Private Admission Date: 01/24/2018 LOS: 13 days A Code/Rapid Response Timeline Event Report has been created for this patient on 02/06 at 0313 Shira Motley RN * Case Mgmt DC Plan - Reynaldo Molly - 02/05/2018 12:13 PM CDT Formatting of this note may be different from the original. Case Management Progress Note NAME:Kelvin Zaldivar :1975 AGE: 42 y.o. ADMISSION DATE: 01/24/2018 DAYS ADMITTED: LOS: 12 days Todays Date: 02/05/2018 Plan: On-going Interventions: EMR reviewed for POC, d/w SW. ? Support -Met with pt at bedside and called . Confirmed that pt does not have a PCP or an Oncologist. Explained to pt and that the agency will require this before providing services. -Pt and requesting on-going "cancer treatments" to be coordinated in [place] at [address]. 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 Discussed the option of staying at [facility] and continue treatments at [facility]. states that she is unable to stay with the pt ([place] requirement) and does not have any other family that would be able to assist. Britany states if is able to return home then she can work around his treatment times. -Explained trach and enteral supplies, delivery, set-up and required education. will be at the hospital on Wednesday 02/07 to receive education, she is eager to learn and will be an appropriate caregiver after discharge. -->Addendum 1340: [facility] ([phone][facility] will deliver portable suction to bedside Saturday morning/afternoon, agency would prefer to be present to receive education. Humidified air and formula will be delivered to home address vs Saturday, local [place] branch will work out delivery details with . -->Addendum 5823: Enteral formula is not covered under pts insurance, [facility] will reach out to to discuss OOP costs of formula and coordinate delivery. ? Info or Referral -Confirmed that [facility] service the [place], [place] area. Faxed referral for trach and enteral supplies to this provider. Awaiting to back from agency regarding delivery and insurance coverage. -[facility] p: : [id number] -[facility] p: ): does not take trach's -[facility] p: : not accepting trach patients -[facility] p; : checking insurance, if in-network agency will accept. Addendum 1700: agency is OON and cannot accept pt. ? Discharge Planning Discharge Planning: Durable Medical Equipment and Supplies, Home Infusion- Enteral-TPN, Home Health ? Medication Needs ? Financial ? Legal ? Other Disposition ? Expected Discharge Date Expected Discharge Date: 02/05/18 ? Transportation Does the patient need discharge transport arranged?: No Transportation Name, Phone and Availability #1: Significant Other: Britany Penny ([phone]) Does the patient use Medicaid Transportation?: No ? Next Level of Care (Acute Psych discharges only) ? Discharge Disposition Durable Medical Equipment No service has been selected for the patient. [facility] Destination No service has been selected for the patient. Home Care No service has been selected for the patient. Dialysis/Infusion No service has been selected for the patient. Molly Jacobs RN Nurse Biophysics Professor Pager: [phone] * Procedures (Immed Post or Bedside) - Billy Noel MD - 02/05/2018 8:58 AM CDT Immediate Post Procedure Note Date: 02/05/2018 Attending Physician: Dr. Mcmahon Performing Provider: Billy Noel MD Consent: Consent obtained from patient. Time out performed: Consent obtained, correct patient verified, correct procedure verified, correct site verified, patient marked as necessary. Pre/Post Procedure Diagnosis: Dysphagia Indications: Neck mass Anesthesia: Local 15 mL 1% lidocaine without epinephrine with IV sedation fentanyl/versed Procedure(s): G-tube placement Findings: G-tube Estimated Blood Loss: None/Negligible Specimen(s) Removed/Disposition: None Complications: None Patient Tolerated Procedure: Well Post-Procedure Condition: stable Billy Noel MD * Patient Education - Jada Olson RN - 02/03/2018 5:57 PM CDT Medication Education Kelvin Zaldivar accepted counseling and was receptive. he demonstrated understanding. The following medications were discussed: Zofran/decadron Emend IV fluids Percocet Nicotine patch Fentanyl Ativan Deep breathing techniques for anxiety attacks Where indicated, the patient was provided with additional medication and/or disease-state information. All patient questions were answered and patient acknowledged understanding of the medications, side effects and other pertinent medication information. Follow up should occur daily. Continue to address: certain medications Jada Olson RN * Care Plan - Jada Olson RN - 02/03/2018 5:57 PM CDT Problem: Discharge Planning Goal: Participation in plan of care Outcome: Goal Ongoing Patient active in plan of care during shift. Problem: Pain Goal: Management of pain Outcome: Goal Ongoing Patient reported right side rib cage and upper chest pain during shift. Problem: Communication, Impaired Goal: Maximize functional communication Outcome: Goal Ongoing Patient mouths words and writes thing down for communication. Problem: Tobacco Use Goal: Knowledge of tobacco-use cessation methods Outcome: Goal Ongoing Patients nicotine patch removed and replaced upon return to unit Problem: Anxiety Goal: Alleviation of anxiety Outcome: Goal Ongoing PRN hydroxyzine added for in hopes of longer acting relief for anxiety. Problem: Neurological Status, Impaired/Altered Goal: Progress toward maximizing functional outcomes Outcome: Goal Ongoing Patient alert and oriented X4 during shift. * Patient Education - Skyla Aguiar, PHARMD - 02/03/2018 2:23 PM CDT Chemotherapy Education Provided patient with written and verbal education regarding cisplatin/ etoposide chemotherapy for the treatment of new high grade carcinoma (suspect poorly differentiated non-small cell lung) cancer. Reviewed chemotherapy schedule. Patient will receive chemotherapy as follows: Cisplatin IV over one hour on Day 1 Etoposide IV over one hour on Days 1-3 Reviewed side effects of chemotherapy, including - but not limited to: Low blood counts (explained associated risk for infection, bleeding, bruising , fatigue) Nausea and vomiting (explained purpose of scheduled antiemetics before chemotherapy and the use of PRNs in the event of breakthrough nausea & vomiting) Kidney toxicity (explained purpose of IV hydration and the importance of maintaining oral intake and frequent urination) Changes in lab tests (explained that the medical team will be monitoring lab values closely) Hair loss Difficulty hearing / hearing loss / ringing in the ears Peripheral neuropathy Changes in bowel habits / poor appetite / mouth sores & mucositis / taste changes While the risk of infusion reactions and/or allergic reactions is rare, advised patient to inform health care team immediately in the event of such a reaction so that interventions can be made as warranted. Patient voiced understanding about the provided information. All questions/ concerns addressed at this time. Medication handout(s) provided. Carlos KruegerD * Procedures (Immed Post or Bedside) - Jerzy Wilkinson MD - 02/03/2018 9:40 AM CDT Immediate Post Procedure Note Date: 02/03/2018 Attending Physician: Jaja Performing Provider: Jerzy Wilkinson MD Consent: Consent obtained from patient. Time out performed: Consent obtained, correct patient verified, correct procedure verified, correct site verified, patient marked as necessary. Pre/Post Procedure Diagnosis: Neck cancer Indications: chemotherapy Anesthesia: Local 25 mL 2% lidocaine with epinephrine with IV sedation versed 5mg, fentanyl 250mcg Procedure(s): Venogram, recanalization and angioplasty of occluded left brachiocephalic vein and upper SVC, left subclavian chest port placement Findings: Occlusion of left IJ, left brachiocephalic vein, upper SVC Estimated Blood Loss: 30cc Specimen(s) Removed/Disposition: None Complications: None Patient Tolerated Procedure: Well Post-Procedure Condition: stable Jerzy Wilkinson MD Pager [phone] * Transfer - Latisha Solano, PATRICK - 02/01/2018 1:09 PM CDT In-Hospital Transfer Note Admission Diagnosis: Neck mass Admission Date: 01/24/2018 Active Hospital Problem List: Active Problems: Neck mass SVC (superior vena cava obstruction) Leukocytosis Hyponatremia Tobacco abuse Diagnosis unknown Hospital Course: 42 y.o. male with a PMH of tobaccoism with ~30 pack year hx. About 3w ago developed dysphagia & voice hoarseness; evaluated by ENT in [place] who noted b/l paralyzed vocal cords. CT neck showed large R sided mass. CT c/a/p showed infiltrating mass involving the mediastinum, subcarinal & hilar regions that is narrowing the trachea as well as encompassing the pulm artery & ascending aorta. ENT placed a trach on 01/24 but were unable to completely bypass the area of narrowing. FNA was performed by IR on 01/24 w/ pathology consistent with poorly differentiated carcinoma. Oncology and rad/onc planning treatment. MRI brain 01/22 was normal. Some bleeding around trach site that was managed w/ thrombin spray; since resolved. Underwent radiation simulation 01/31 with three loading doses of radiation and plans to begin chemo next week for ongoing administration with concurrent radiation. Significant Medication Information (to include antibiotic duration/indication, anticoagulation and steroids, etc.): Procedures With Dates: trach & FNA on 01/24 Consults: Onc, Rad onc & ENT Follow-Up Items: pathology results Activity/Weight bearing status: no restrictions Nutrition: present Discharge Plan: ongoing Latisha Solano APRN Pager [phone] M2 team pager (2nd call/nights) [phone] * Care Plan - Radha Torres RN - 01/28/2018 6:14 PM CDT Problem: Discharge Planning Goal: Participation in plan of care Outcome: Goal Ongoing Leahy of care reviewed with pt and family Problem: Pain Goal: Management of pain Outcome: Goal Ongoing PRN pain medication given as needed * Case Mgmt DC Plan - Tacos Karimi - 01/27/2018 11:27 AM CDT Case Management Progress Note NAME:Kelvin Zaldivar :1975 AGE: 42 y.o. ADMISSION DATE: 01/24/2018 DAYS ADMITTED: LOS: 3 days Todays Date: 01/27/2018 Plan Discharge planning ongoing Continue ICU Care Pathology pending from biopsy on Saturday Trach (placed on 01/24) and Corpak in place PT/OTST Interventions ? Support ? Info or Referral ? Discharge Planning SW reviewed progress notes and discussed patient with ICU team and RNCM. Continue ICU Care. Patient had trach placed on 01/24. Anticipate patient to discharge home when stable. PT/OT/ST following. Pathology pending treatment arrangement. Patient may start chemo/radiation while inpatient depending on pathology. SW and RNCM following. ? Medication Needs ? Financial Coventry ? Legal ? Other Patient lives in a private home ([place], [place]) with his spouse, Britany, and his daughter. There are 2 steps to enter the home and home is one level. 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 Disposition ? Expected Discharge Date Expected Discharge Date: 02/05/18 ? Transportation Does the patient need discharge transport arranged?: No Transportation Name, Phone and Availability #1: Significant Other: Britany Penny ([phone]) Does the patient use Medicaid Transportation?: No ? Next Level of Care (Acute Psych discharges only) ? Discharge Disposition Tacos Kar[facility] [phone] (phone) [phone] (pager) * Care Plan - Konrad Wilde - 01/27/2018 11:19 AM CDT Problem: Tobacco Use Goal: Knowledge of tobacco-use cessation methods Outcome: Goal Ongoing [facility] CONSULTATION ASSESSMENT/RECOMMENDATIONS [facility] Practical Counseling was provided, including recognizing danger situations, developing coping skills and providing basic information about quitting. MEDICATION RECOMMENDATIONS TO QUIT TOBACCO: In-patient quit-tobacco medication Pt doing well on Nicotine patch (21 mg). Advised that for his level of smoking (30 cigarettes a day), a 21 mg patch and a 14 mg patch would be recommended (35 mg total). If patient begins to have cravings, he will request that the patch dosage be increased. Discharge medication options . If medically acceptable, please provide DC Rx for Nicotine patches (35 mg) and 4 mg nicotine gum, if able to use. OTC Nicotine Replacement (patch, gum, lozenge) is generally covered by patient insurance but requires a prescription. Discussed discussing Chantix with his primary care physician after discharge. Post discharge support referral: Declined [facility] Tobacco Quitline due to inability to speak currently. Provided telephone contact information. [employer] Educational Material: Accepted History of Present Illness Reports using 30 cigarettes per day. Reports using tobacco within 6-30 minutes minutes of waking. E-Cigarette or vape use: None Other tobacco use: None Years used: 25 WIthdrawal: No nicotine withdrawal based upon the patients rating on the Nicotine Withdrawal Behavior Rating Scale. Patient lives with other smokers or vapers Set a quit date: Yes, 01/24/2018 Plan about smoking after patient leaves the hospital: I plan to stay quit when I leave the hospital Interest in quitting: high Contact Information If I can be of further assistance, please call [employer] [phone] * Anesthesia Post Op Day 1 - Lexy Charlton SRNA - 01/25/2018 12:46 PM CDT Formatting of this note may be different from the original. Anesthesia Follow-Up Evaluation: Post-Procedure Day One Name: Kelvin Zaldivar : 1975 Age: 42 y.o. Sex : male Procedure Date: 01/24/2018 Procedure: Procedure(s) with comments: TRACHEOSTOMY BRONCHOSCOPY Through tracheostomy - CPT 51626 Physical Assessment Height: 201.2 cm (79.2") Weight: 79.1 kg (174 lb 6.1 oz) Vital Signs (Last Filed in 24 hours) BP: 103/65 (01/25 1200) Temp: 36.6 C (97.8 F) (01/25 1200) Pulse: 87 (01/25 1200) Respirations: 10 PER MINUTE (01/25 1200) SpO2: 95 % (01/25 1200) O2 Delivery: Trach Shield (01/25 1200) SpO2 Pulse: 86 (01/25 1200) Height: 201.2 cm (79.2") (01/24 1259) Patient History Allergies No Known Allergies Medications Scheduled Meds: enoxaparin (LOVENOX) syringe 40 mg 40 mg Subcutaneous QDAY(21) nicotine (NICODERM CQ STEP 1) 21 mg/day patch 1 patch 1 patch Transdermal QDAY Continuous Infusions: PRN and Respiratory Meds:fentaNYL citrate PF Q2H PRN, LORazepam (ATIVAN) injection Q2H PRN, magnesium sulfate PRN AND Magnesium DAILY AM AND Notify Physician Ongoing, pancrelipase 20,000 Units/ sodium bicarbonate 650 mg(# ) PRN (Capacitor Assembler from Rx), potassium chloride SR PRN OR potassium chloride PRN , sodium phosphate IVPB PRN (Capacitor Assembler from Rx) AND Phosphorus DAILY AM AND Notify Physician Ongoing Diagnostic Tests Hematology: Lab Results Component Value Date HGB 13.1 01/25/2018 HCT 39.5 01/25/2018 PLTCT 184 01/25/2018 WBC 19.4 01/25/2018 NEUT 93 01/25/2018 ANC 18.00 01/25/2018 ALC 0.60 01/25/2018 ANA 4 01/25/2018 AMC 0.90 01/25/2018 EOSA 0 01/25/2018 ABC 0.00 01/25/2018 MCV 90.5 01/25/2018 MCH 30.0 01/25/2018 MCHC 33.1 01/25/2018 MPV 7.6 01/25/2018 RDW 13.7 01/25/2018 General Chemistry: Lab Results Component Value Date NA 132 01/25/2018 K 4.6 01/25/2018 CL 99 01/25/2018 CO2 23 01/25/2018 GAP 10 01/25/2018 BUN 18 01/25/2018 CR 0.99 01/25/2018 GLU 100 01/25/2018 CA 9.7 01/25/2018 ALBUMIN 3.8 01/25/2018 LACTIC 1.2 01/24/2018 MG 2.0 01/25/2018 TOTBILI 0.6 01/25/2018 PO4 5.6 01/25/2018 Coagulation: Lab Results Component Value Date INR 1.2 01/24/2018 Follow-Up Assessment Patient location during evaluation: floor Anesthetic Complications: Anesthetic complications: The patient did not experience any anesthestic complications. Pain: Management:adequate Level of Consciousness: awake and alert Hydration:acceptable Airway Patency: patent Respiratory Status: spontaneous ventilation and acceptable Cardiovascular Status:hemodynamically stable Regional/Neuroaxial: * Procedures (Immed Post or Bedside) - Oseas Valentine MD - 01/24/2018 5:15 PM CDT Immediate Post Procedure Note Date: 01/24/2018 Attending Physician: Antonio Valentine MD Procedure(s): Rt supraclavicular mass bx Pre/Post Diagnosis: As above Description/Findings: Large mass Anesthesia: 2% lidocaine Time out performed: Consent obtained, correct patient verified, correct procedure verified, correct site verified, patient marked as necessary. Estimated Blood Loss: None/Negligible Specimen(s) Removed/Disposition: Yes, sent to pathology and 15, (18 g cores taken) Complications: None Oseas Valentine MD Procedure Note Kelvin Zaldivar is a 42 y.o. male. Procedures Oseas Valentine MD * Operative Report (Direct Entry) - Jorge Neff MD - 01/24/2018 2:51 PM CDT Formatting of this note may be different from the original. OPERATIVE REPORT Name: Kelvin Zaldivar is a 42 y.o. male : 1975 DATE OF OPERATION: 01/24/2018 Surgeon(s) and Role: * Lizzeth Luna MD - Resident - Assisting * Alhaji Ramos MD - Resident - Assisting * Jorge Neff MD Preoperative Diagnosis: Neck mass [R22.1] Diagnosis unknown [R69] Post-op Diagnosis * Neck mass [R22.1] * Diagnosis unknown [R69] Procedure(s): TRACHEOSTOMY BRONCHOSCOPY Through tracheostomy Anesthesia Type: General Description and Findings of Operative Procedure: Patient was met in the preoperative area where informed consent was signed. Benefits and risks were explained and all questions were answered. After evaluation by anesthesia, he was brought back to the operating room and placed in supine position on the operating room table. Lube and tape were placed to protect eyes and head wrap was formed with a blue towel. Head of bed remained towards anesthesia. Time out was performed. Laryngeal landmarks were palpated and marked at the sternal notch, cricoid, and thyroid notch. Patients neck was very thin. Horizontal incision was marked approximately 2 finger breadths above the sternal notch approximately 2-3 cm in length. 15 blade used to make horizontal skin incision down through platysmal. Midline raphae of strap muscles was identified, dissected apart, and retracted laterally. Thyroid isthmus was identified and dissected away from the anterior tracheal wall and retracted laterally. Kittner was used to dissect off anterior tracheal fascia. Cricoid hook was placed to retract the airway anteriorly and superiorly. 2-0 Silk was placed at inferior incisional skin and left open on the field. After communication with anesthesia, ETT cuff was deflated. Trachea was entered between tracheal rings 2 and 3. Heavy curved mayos were used to make inferior incisions to fashion a April flap. 2-0 silk that was previously thrown was used to secure the April flap to the inferior skin. 6-0 cuffed Shiley was placed and connected to circuit with good end tidal CO2 and tidal volumes. Remaining ETT was removed. Shiley was secured to the skin with 2-0 silk sutures and velcro tie. Flexible scope was used to confirm placement of tracheostomy tube and to examine the area of trachea compression. The inferior edge of the tracheostomy tube was sitting at least 1 cm above the area of compression without any areas of mucosa friction. There was extrinsic compression of the trachea without evidence of mucosal involvement of tumor or lesion. Distally there was about 50 % compression of the trachea to the level of the steve. Steve was able to be visualized distally and about 2 cm above the steve was the most significant compression. All instruments were removed from the patient. A dobhoff/corpak feeding tube was then placed and placement visualized through the inlet of the esophagus with flexible scope. Patient was then turned over to anesthesia where general anesthesia was lifted. He was transferred back to the ICU in stable condition. Counts correct x2. Dr. Neff present and supervising for entirety of procedure. Estimated Blood Loss: Minimal Specimen(s) Removed/Disposition: None Drains: 6.0 cuffed Shiley tracheostomy tube and Corpak Implants: None Complications: none Dispo: Stable to MICU Lizzeth Luna MD Pager [phone] ATTESTATION I was present for the entire case including all critical portions of the case. I directly assisted and directed the resident during non critical portions of the case and performed all critical portions of the the case myself. Staff name: Jorge Neff MD Date: 01/24/2018 * Care Plan - Rosina Butt RN - 01/24/2018 1:14 PM CDT Problem: Pain Goal: Management of pain Outcome: Goal Ongoing Pt knowledgeable of pain management strategies * Response Teams - Liz Barragan RN - 01/24/2018 12:28 PM CDT 1230: [employer] follow up complete. Pt resting comfortably, no signs of acute respiratory distress. Spoke with primary RNJocelyne. No current concerns at this time. Patient to head to OR soon. * Case Mgmt DC Plan - Fanyn Burrell - 01/24/2018 11:42 AM CDT Case Management Admission Assessment NAME:Kelvin Zaldivar :1975 AGE: 42 y.o. ADMISSION DATE: 01/24/2018 DAYS ADMITTED: LOS: 0 days Todays Date: 01/24/2018 Source of Information: This NCM met with pt at bedside. Introduced self and role. Pt's significant other, Britany, and daughter at bedside. Received permission from the pt to discuss DC Planning in front of pt's visitors. Provided pt with this NCM's business card with contact information. Pt resting in bed. Able to answer all questions. - Pt lives in a private home with his S.O., Britany, and his daughter. There are 2 steps to enter the home and home is one level. 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 Pt has no past medical history prior to this encounter and was on no medications. This is pt's first hospitalization. Pt's S.O. will drive him home on DC. - Pt does not have a PCP. Pt saw a Dr. Yun with ENT in [place], [place] prior to admission. - Pt does not own any DME. Has never had HH services. Has never stayed in a SNF / IPR /LTACH. No history of home infusions. - Pt has [employer] insurance through his employer. Pt reports he would use the [facility] in [place], [place] on DC. Plan Plan: CM Assessment, Discharge Planning for Home Anticipated, Assist PRN with /NCM Services Discharge Plan: DC Date / final needs undetermined at this time. Pt going to OR today with ENT for likely trach. This MSM discussed potential DC needs of HH and trach care on DC. Will continue to follow closely for DC Planning. Patient Address/Phone [address] [facility] [address] (home) Emergency Contact Extended Emergency Contact Information Primary Emergency Contact: Britany Penny [facility] Mobile Relation: Significant Other Healthcare Directive Transportation Does the patient need discharge transport arranged?: No Transportation Name, Phone and Availability #1: Significant Other: Britany Penny ([phone]) Does the patient use Medicaid Transportation?: No Expected Discharge Date Expected Discharge Date: 01/29/18 Living Situation Prior to Admission ? Living Arrangements Type of Residence: Home, independent Living Arrangements: Spouse/significant other, Children Bathroom Shower / Tub: Tub/Shower Unit How many levels in the residence?: 1 Can patient live on one level if needed?: Yes Does residence have entry and/or side stairs?: Yes (2 steps) Assistance needed prior to admit or anticipated on discharge: No Who provides assistance or could if needed?: Significant Other Are they in good health?: Yes Can support system provide 24/7 care if needed?: Maybe ? Level of Function Prior level of function: Independent ? Cognitive Abilities Cognitive Abilities: Alert and Oriented, Engages in problem solving and planning , Participates in decision making, Recognizes impact of health condition on lifestyle, Understands nature of health condition Financial Resources ? Coverage Primary Insurance: Commercial insurance ([place]) Secondary Insurance: No insurance Additional Coverage: RX ? Source of Income Source Of Income: Employed ? Financial Assistance Needed? none Psychosocial Needs ? Mental Health Mental Health History: No ? Substance Use History Substance Use History Screen: No ? Other none Current/Previous Services ? PCP ? Pharmacy No Pharmacies Listed ? Durable Medical Equipment Durable Medical Equipment at home: None ? Home Health Receiving home health: No ? Hemodialysis or Peritoneal Dialysis Undergoing hemodialysis or peritoneal dialysis: No ? Tube/Enteral Feeds Receive tube/enteral feeds: No ? Infusion Receive infusions: No ? Private Duty Private duty help used: No ? Home and Community Based Services Home and community based services: No ? Brian White ? Brian White: N/A ? Hospice Hospice: No ? Outpatient Therapy PT: No OT: No TECHNOLOGY ASSISTANT: No ? Nursing Home Facility/Prison SNF: No NH: No ? Inpatient Rehab IPR: No ? Long-Term Acute Care Hospital LTACH: No ? Acute Hospital Stay Acute Hospital Stay: No KAUR Duque, RN Nurse Biophysics Professor - Med 1 Service Pager: [phone] * Response Teams - Carlos Mccall RN - 01/24/2018 9:42 AM CDT Rapid Response Team Progress Note Date: 01/24/2018 Time: 9:47 AM Patient: Kelvin Zaldivar Attending: Carlos Anne DO Service: Med 2041 Admission Date: 01/24/2018 LOS: 0 days A Code/Rapid Response Timeline Event Report has been created for this patient on 01/24 at 0940. [facility] called for evaluation of transport to ICU for closer monitoring of airway. Pt planned for ENT surgery today. After discussion between Dr. Flores and Dr. Hooper, plan will be to admit patient to ICU following procedure. Ok for patient to remain in current level of care until time of procedure. Primary care RN updated, ok with plan. Please call [facility] for any further concern or changes in patient condition. The Attending physician, Dr. Anne, was present during this event. Carlos Mccall RN * Care Plan - Dennis Romero RN - 01/24/2018 5:15 AM CDT Problem: Discharge Planning Goal: Participation in plan of care Outcome: Goal Ongoing Plan of care discussed with pt. Possible procedure today. No questions at this time. Problem: Pain Goal: Management of pain Outcome: Goal Ongoing Pt experiencing pain in neck and back. Pt is aware of pharmacological management of pain. * Care Coordination-Inpatient - Carrol Beach MD - 01/23/2018 9:43 PM CDT Transfer accepted from the ER at [facility] in [place]. Patient has no significant past medical history. 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 They ordered a CT neck which showed a large mass and referred him to the emergency room today. In the emergency room today he had a CT chest abdomen pelvis with contrast that showed a 10.8 cm mass that extends from his neck to his chest area that does appear to be compressing his airway, involving his aortic arch, encompassing his aorta and pulmonary artery. He does have some JVD on physical exam. The sending physician did not mention any facial swelling, however this is very suggestive of SVC syndrome. Patient does not have any stridor and is in no respiratory distress. Vitals are blood pressure 116/80, heart rate 112, respiratory rate normal, saturating well on room air. He did have an MRI brain that showed no metastases. Lab james hemoglobin is 14, white count is 19.8, platelets are 206. He was accepted to a telemetry bed. Carrol Beach MD in this encounter Plan of Treatment Name Priority Associated Diagnoses Order Schedule ECG 12-LEAD STAT ONE TIME for 1 Occurrences starting 02/06/2018 until 02/06/2018 as of this encounter Procedures Procedure Name Priority Date/Time Associated Diagnosis Comments TELEMETRY STRIPS-SCAN 02/22/2018 Results for this 10:03 AM CDT procedure are in the results section. ECG-SCAN 02/22/2018 Results for this 9:42 AM CDT procedure are in the results section. CONSULT IV THERAPY TEAM Routine 02/10/2018 6:59 AM CDT BRONCHOSCOPY Through 01/24/2018 Neck mass tracheostomy 12:23 PM CDT TRACHEOSTOMY 01/24/2018 Neck mass 12:23 PM CDT in this encounter Results * TELEMETRY STRIPS-SCAN (02/22/2018 10:03 AM) Narrative Ordered by an unspecified provider. * ECG-SCAN (02/22/2018 9:42 AM) Narrative Ordered by an unspecified provider. * PHOSPHORUS (02/14/2018 2:10 AM) Component Value Ref Range Phosphorus 2.8 2.0 - 4.0 MG/DL Specimen Performing Laboratory Blood MA[facility] [address] [place] [address] * MAGNESIUM (02/14/2018 2:10 AM) Component Value Ref Range Magnesium 1.7 1.6 - 2.6 mg/dL Specimen Performing Laboratory Blood [facility] [address] [place] [address] * COMPREHENSIVE METABOLIC PANEL (02/14/2018 2:10 AM) Component Value Ref Range Sodium 132 (L) [...] Specimen Performing Laboratory [facility] [address] [place] [address] * CBC AND DIFF (02/14/2018 2:10 AM) Component Value Ref Range White Blood Cells [...] Manual Specimen Performing Laboratory Blood [facility] [address] [place], [place] [id number] * CBC (02/13/2018 2:30 PM) Component Value Ref Range White Blood Cells 0.8 (LL) 4.5 - 11.0 K/UL Comment: Critical Result WBC:Called to MAME Sampson at: 15:02:14 by: ASPEN Read back by: MAME Sampson RBC 3.16 (L) 4.4 - 5.5 [...] - 11 FL Specimen Performing Laboratory Blood [facility] [address] [place] [address] * PHOSPHORUS (02/13/2018 3:25 AM) Component Value Ref Range Phosphorus 3.1 2.0 - 4.0 MG/DL Specimen Performing Laboratory Blood [facility] [address] [place] [address] * MAGNESIUM (02/13/2018 3:25 AM) Component Value Ref Range Magnesium 1.7 1.6 - 2.6 mg/dL Specimen Performing Laboratory Blood [facility] [address] [place] [address] * COMPREHENSIVE METABOLIC PANEL (02/13/2018 3:25 AM) Component Value Ref Range Sodium 135 (L) 137 - 147 MMOL/L Potassium 3.8 3.5 - 5.1 MMOL/L Chloride 102 98 - 110 MMOL/L Glucose 94 70 - 100 MG/DL Blood Urea Nitrogen 19 7 - 25 MG/DL Creatinine 0.72 0.4 - 1.24 MG/DL Calcium 8.7 8.5 - 10.6 MG/DL Total Protein 6.4 6.0 - 8.0 G/DL Total Bilirubin 0.6 0.3 - 1.2 MG/DL Albumin 3.0 (L) 3.5 - 5.0 G/DL Alk Phosphatase 96 25 - 110 U/L AST (SGOT) 38 7 - 40 U/L CO2 25 21 - 30 MMOL/L ALT (SGPT) 94 (H) 7 - 56 U/L Anion Gap 8 3 - 12 eGFR Non >60 >60 [...] Performing Laboratory [facility] [address] [place] [address] * CBC AND DIFF (02/13/2018 3:25 AM) Component Value Ref Range White Blood Cells 1.4 (L) 4.5 - 11.0 K/UL RBC 3.23 (L) 4.4 - 5.5 M/UL Hemoglobin 9.9 (L) 13.5 - 16.5 GM/DL Hematocrit 28.1 (L) 40 - 50 % MCV 87.0 80 - 100 FL MCH 30.8 26 - 34 PG MCHC 35.4 32.0 - 36.0 G/DL RDW 12.7 11 - 15 % Platelet Count 69 (L) 150 - 400 K/UL MPV 7.3 7 - 11 FL Neutrophils 83 (H) 41 - 77 % Lymphocytes 13 (L) 24 - 44 % Monocytes 3 (L) 4 - 12 % Eosinophils 1 0 - 5 % Basophils 0 0 - 2 % Absolute Neutrophil Count 1.10 (L) 1.8 - 7.0 K/UL Absolute Lymph Count 0.20 (L) 1.0 - 4.8 K/UL Absolute Monocyte Count 0.00 0 - 0.80 K/UL Absolute Eosinophil Count 0.00 0 - 0.45 K/UL Absolute Basophil Count 0.00 0 - 0.20 K/UL Specimen Performing Laboratory [facility] [address] [place] [address] * CULTURE-URINE W/SENSITIVITY (02/12/2018 4:45 AM) Component Value Ref Range Battery Name URINE CULTURE Specimen Description URINE Special Requests NONE Culture NO GROWTH Report Status FINAL 02/13/2018 Specimen Performing Laboratory Urine [facility] [address] [place], [place] [id number] * PHOSPHORUS (02/12/2018 3:45 AM) Component Value Ref Range Phosphorus 2.7 2.0 - 4.0 MG/DL Specimen Performing Laboratory [facility] [address] [place], [place] [id number] * MAGNESIUM (02/12/2018 3:45 AM) Component Value Ref Range Magnesium 1.7 1.6 - 2.6 mg/dL Specimen Performing Laboratory Blood [facility] [address] [place], [place] [id number] * COMPREHENSIVE METABOLIC PANEL (02/12/2018 3:45 AM) Component Value Ref Range Sodium 133 (L) 137 - 147 MMOL/L Potassium 3.6 3.5 - 5.1 MMOL/L Chloride 101 98 - 110 MMOL/L Glucose 98 70 - 100 MG/DL Blood Urea Nitrogen 19 7 - 25 MG/DL Creatinine 0.62 0.4 - 1.24 MG/DL Calcium 8.8 8.5 - 10.6 MG/DL Total Protein 6.2 6.0 - 8.0 G/DL Total Bilirubin 0.7 0.3 - 1.2 MG/DL Albumin 3.0 (L) 3.5 - 5.0 G/DL Alk Phosphatase 106 25 - 110 U/L AST (SGOT) 61 (H) 7 - 40 U/L CO2 24 21 - 30 MMOL/L ALT (SGPT) 100 (H) 7 - 56 U/L Anion Gap 8 3 - 12 eGFR Non >60 >60 [...] Specimen Performing Laboratory Blood MAIN LAB [address] [place] [address] * CBC AND DIFF (02/12/2018 3:45 AM) Component Value Ref Range White Blood Cells 1.2 (L) 4.5 - 11.0 K/UL RBC 3.29 (L) 4.4 - 5.5 M/UL Hemoglobin 9.6 (L) 13.5 - 16.5 GM/DL Hematocrit 28.8 (L) 40 - 50 % MCV 87.8 80 - 100 FL MCH 29.2 26 - 34 PG MCHC 33.3 32.0 - 36.0 G/DL RDW 12.9 11 - 15 % Platelet Count 77 (L) 150 - 400 K/UL MPV 7.2 7 - 11 FL Neutrophils 80 (H) 41 - 77 % Lymphocytes 15 (L) 24 - 44 % Monocytes 2 (L) 4 - 12 % Eosinophils 3 0 - 5 % Basophils 0 0 - 2 % Absolute Neutrophil Count 0.90 (L) 1.8 - 7.0 K/UL Absolute Lymph Count 0.20 (L) 1.0 - 4.8 K/UL Absolute Monocyte Count 0.00 0 - 0.80 K/UL Absolute Eosinophil Count 0.00 0 - 0.45 K/UL Absolute Basophil Count 0.00 0 - 0.20 K/UL Specimen Performing Laboratory Blood MAIN LAB [address] [place] [address] * CULTURE-BLOOD W/SENSITIVITY (02/11/2018 2:10 PM) Component Value Ref Range Battery Name BLOOD CULTURE Specimen Description BLOOD LEFT ANTECUBITAL Special Requests NONE Culture NO GROWTH 5 DAYS Report Status FINAL 02/17/2018 Specimen Performing Laboratory Blood MAIN LAB [address] [place] [address] * CULTURE-BLOOD W/SENSITIVITY (02/11/2018 2:08 PM) Component Value Ref Range Battery Name BLOOD CULTURE Specimen Description BLOOD LEFT PORT Special Requests NONE Culture NO GROWTH 5 DAYS Report Status FINAL 02/17/2018 Specimen Performing Laboratory Blood MAIN LAB [address] [place] [address] * PHOSPHORUS (02/11/2018 5:11 AM) Component Value Ref Range Phosphorus 3.0 2.0 - 4.0 MG/DL Specimen Performing Laboratory Blood MAIN LAB [address] [place] [address] * MAGNESIUM (02/11/2018 5:11 AM) Component Value Ref Range Magnesium 1.8 1.6 - 2.6 mg/dL Specimen Performing Laboratory Blood MAIN LAB [address] [place] [address] * COMPREHENSIVE METABOLIC PANEL (02/11/2018 5:11 AM) Component Value Ref Range Sodium 135 (L) 137 - 147 MMOL/L Potassium 3.6 3.5 - 5.1 MMOL/L Chloride 102 98 - 110 MMOL/L Glucose 100 70 - 100 MG/DL Blood Urea Nitrogen 18 7 - 25 MG/DL Creatinine 0.68 0.4 - 1.24 MG/DL Calcium 8.8 8.5 - 10.6 MG/DL Total Protein 6.2 6.0 - 8.0 G/DL Total Bilirubin 0.9 0.3 - 1.2 MG/DL Albumin 2.9 (L) 3.5 - 5.0 G/DL Alk Phosphatase 102 25 - 110 U/L AST (SGOT) 37 7 - 40 U/L CO2 26 21 - 30 MMOL/L ALT (SGPT) 60 (H) 7 - 56 U/L Anion Gap [...] Specimen Performing Laboratory Blood MAIN LAB [address] [place] [address] * CBC AND DIFF (02/11/2018 5:11 AM) Component Value Ref Range White Blood Cells 2.0 (L) 4.5 - 11.0 K/UL RBC 3.32 (L) 4.4 - 5.5 M/UL Hemoglobin 10.2 (L) 13.5 - 16.5 GM/DL Hematocrit 29.0 (L) 40 - 50 % MCV 87.5 80 - 100 FL MCH 30.8 26 - 34 PG MCHC 35.2 32.0 - 36.0 G/DL RDW 13.0 11 - 15 % Platelet Count 102 (L) 150 - 400 K/UL MPV 7.1 7 - 11 FL Neutrophils 87 (H) 41 - 77 % Lymphocytes 9 (L) 24 - 44 % Monocytes 1 (L) 4 - 12 % Eosinophils 3 0 - 5 % Basophils 0 0 - 2 % Absolute Neutrophil Count 1.70 (L) 1.8 - 7.0 K/UL Absolute Lymph Count 0.20 (L) 1.0 - 4.8 K/UL Absolute Monocyte Count 0.00 0 - 0.80 K/UL Absolute Eosinophil Count 0.10 0 - 0.45 K/UL Absolute Basophil Count 0.00 0 - 0.20 K/UL Specimen Performing Laboratory Blood [facility] MAIN [facility] [address] [place] [address] * SWALLOW MOTION SERIES (02/10/2018 11:55 AM) [...] Maher M.D. on 02/10/2018 1:04 PM. * PHOSPHORUS (02/10/2018 1:58 AM) Component Value Ref Range Phosphorus 3.3 2.0 - 4.0 MG/DL Specimen Performing Laboratory Blood MAIN LAB [address] [place] [address] * MAGNESIUM (02/10/2018 1:58 AM) Component Value Ref Range Magnesium 1.9 1.6 - 2.6 mg/dL Specimen Performing Laboratory Blood MAIN LAB [address] [place] [address] * COMPREHENSIVE METABOLIC PANEL (02/10/2018 1:58 AM) Component Value Ref Range Sodium 135 (L) 137 - 147 MMOL/L Potassium 3.6 3.5 - 5.1 MMOL/L Chloride 100 98 - 110 MMOL/L Glucose 106 (H) 70 - 100 MG/DL Blood Urea Nitrogen 23 7 - 25 MG/DL Creatinine 0.85 0.4 - 1.24 MG/DL Calcium 8.9 8.5 - 10.6 MG/DL Total Protein 6.1 6.0 - 8.0 G/DL Total Bilirubin 1.1 0.3 - 1.2 MG/DL Albumin 2.9 (L) 3.5 - 5.0 G/DL Alk Phosphatase 101 25 - 110 U/L AST (SGOT) 40 7 - 40 U/L CO2 28 21 - 30 MMOL/L ALT (SGPT) 62 (H) 7 - 56 U/L Anion Gap [...] questions. Specimen Performing Laboratory Blood MAIN LAB [address] [place] [address] * CBC AND DIFF (02/10/2018 1:58 AM) Component Value Ref Range White Blood Cells 3.9 (L) 4.5 - 11.0 K/UL RBC 3.56 (L) 4.4 - 5.5 M/UL Hemoglobin 10.8 (L) 13.5 - 16.5 GM/DL Hematocrit 31.5 (L) 40 - 50 % MCV 88.4 80 - 100 FL MCH 30.2 26 - 34 PG MCHC 34.2 32.0 - 36.0 G/DL RDW 12.9 11 - 15 % Platelet Count 143 (L) 150 - 400 K/UL MPV 7.7 7 - 11 FL Neutrophils 92 (H) 41 - 77 % Lymphocytes 5 (L) 24 - 44 % Monocytes 1 (L) 4 - 12 % Eosinophils 2 0 - 5 % Basophils 0 0 - 2 % Absolute Neutrophil Count 3.60 1.8 - 7.0 K/UL Absolute Lymph Count 0.20 (L) 1.0 - 4.8 K/UL Absolute Monocyte Count 0.00 0 - 0.80 K/UL Absolute Eosinophil Count 0.10 0 - 0.45 K/UL Absolute Basophil Count 0.00 0 - 0.20 K/UL Specimen Performing Laboratory Blood MAIN LAB [address] [place] [address] * VRE SCREEN (02/10/2018 1:55 AM) Component Value Ref Range Battery Name VRE SCREEN Specimen Description PERIRECTAL SWAB Special Requests NONE Culture NO VRE ISOLATED Report Status FINAL 02/11/2018 Specimen Performing Laboratory Perirectal Swab MAIN LAB [address] [place] [address] * PHOSPHORUS (02/09/2018 2:21 AM) Component Value Ref Range Phosphorus 3.1 2.0 - 4.0 MG/DL Specimen Performing Laboratory Blood MAIN LAB [address] [place] [address] * MAGNESIUM (02/09/2018 2:21 AM) Component Value Ref Range Magnesium 1.9 1.6 - 2.6 mg/dL Specimen Performing Laboratory Blood MAIN LAB [address] [place] [address] * COMPREHENSIVE METABOLIC PANEL (02/09/2018 2:21 AM) Component Value Ref Range Sodium 138 137 - 147 MMOL/L Potassium 3.6 3.5 - 5.1 MMOL/L Chloride 102 98 - 110 MMOL/L Glucose 89 70 - 100 MG/DL Blood Urea Nitrogen 26 (H) 7 - 25 MG/DL Creatinine 0.84 0.4 - 1.24 MG/DL Calcium 8.8 8.5 - 10.6 MG/DL Total Protein 5.8 (L) 6.0 - 8.0 G/DL Total Bilirubin 1.2 0.3 - 1.2 MG/DL Albumin 2.7 (L) 3.5 - 5.0 G/DL Alk Phosphatase 85 25 - 110 U/L AST (SGOT) 19 7 - 40 U/L CO2 29 21 - 30 MMOL/L ALT (SGPT) 38 7 - 56 U/L Anion Gap 7 [...] Performing Laboratory Blood [facility] [address] [place] [address] * CBC AND DIFF (02/09/2018 2:21 AM) Component Value Ref Range White Blood Cells 5.3 4.5 - 11.0 K/UL RBC 3.38 (L) 4.4 - 5.5 M/UL Hemoglobin 10.3 (L) 13.5 - 16.5 GM/DL Hematocrit 29.9 (L) 40 - 50 % MCV 88.4 80 - 100 FL MCH 30.6 26 - 34 PG MCHC 34.6 32.0 - 36.0 G/DL RDW 13.2 11 - 15 % Platelet Count 181 150 - 400 K/UL MPV 6.9 (L) 7 - 11 FL Neutrophils 93 (H) 41 - 77 % Lymphocytes 5 (L) 24 - 44 % Monocytes 0 (L) 4 - 12 % Eosinophils 2 0 - 5 % Basophils 0 0 - 2 % Absolute Neutrophil Count 4.90 1.8 - 7.0 K/UL Absolute Lymph Count 0.30 (L) 1.0 - 4.8 K/UL Absolute Monocyte Count 0.00 0 - 0.80 K/UL Absolute Eosinophil Count 0.10 0 - 0.45 K/UL Absolute Basophil Count 0.00 0 - 0.20 K/UL Specimen Performing Laboratory Blood [facility] [address] [place] [address] * ABDOMEN AP ONLY (02/08/2018 10:07 AM) Specimen Performing Laboratory [facility] RAD RESULTS [...] * CHEST SINGLE VIEW (02/08/2018 10:06 AM) Specimen Performing Laboratory [facility] RAD RESULTS [...] AM. * URIC ACID (02/08/2018 3:35 AM) Component Value Ref Range Uric Acid 4.8 4.0 - 8.0 MG/DL Specimen Performing Laboratory Blood [facility] [address] [place] [address] * PHOSPHORUS (02/08/2018 3:35 AM) Component Value Ref Range Phosphorus 3.3 2.0 - 4.0 MG/DL Specimen Performing Laboratory Blood MAIN LAB [address] [place] [address] * MAGNESIUM (02/08/2018 3:35 AM) Component Value Ref Range Magnesium 2.0 1.6 - 2.6 mg/dL Specimen Performing Laboratory Blood MAIN LAB [address] [place] [address] * COMPREHENSIVE METABOLIC PANEL (02/08/2018 3:35 AM) Component Value Ref Range Sodium 141 137 - 147 MMOL/L Potassium 4.1 3.5 - 5.1 MMOL/L Chloride 104 98 - 110 MMOL/L Glucose 101 (H) 70 - 100 MG/DL Blood Urea Nitrogen 39 (H) 7 - 25 MG/DL Creatinine 0.98 0.4 - 1.24 MG/DL Calcium 9.0 8.5 - 10.6 MG/DL Total Protein 6.1 6.0 - 8.0 G/DL Total Bilirubin 0.8 0.3 - 1.2 MG/DL Albumin 2.8 (L) 3.5 - 5.0 G/DL Alk Phosphatase 96 25 - 110 U/L AST (SGOT) 31 7 - 40 U/L CO2 31 (H) 21 - 30 MMOL/L ALT (SGPT) 54 7 - 56 U/L Anion Gap 6 3 - 12 eGFR Non >60 >60 [...] Specimen Performing Laboratory Blood MAIN LAB [address] [place] [address] * CBC AND DIFF (02/08/2018 3:35 AM) Component Value Ref Range White Blood Cells 10.7 4.5 - 11.0 K/UL RBC 3.72 (L) 4.4 - 5.5 M/UL Hemoglobin 11.4 (L) 13.5 - 16.5 GM/DL Hematocrit 33.3 (L) 40 - 50 % MCV 89.6 80 - 100 FL MCH 30.6 26 - 34 PG MCHC 34.1 32.0 - 36.0 G/DL RDW 13.7 11 - 15 % Platelet Count 190 150 - 400 K/UL MPV 7.4 7 - 11 FL Neutrophils 98 (H) 41 - 77 % Lymphocytes 2 (L) 24 - 44 % Monocytes 0 (L) 4 - 12 % Eosinophils 0 0 - 5 % Basophils 0 0 - 2 % Absolute Neutrophil Count 10.40 (H) 1.8 - 7.0 K/UL Absolute Lymph Count 0.20 (L) 1.0 - 4.8 K/UL Absolute Monocyte Count 0.00 0 - 0.80 K/UL Absolute Eosinophil Count 0.00 0 - 0.45 K/UL Absolute Basophil Count 0.00 0 - 0.20 K/UL Specimen Performing Laboratory Blood MAIN LAB [address] [place] [address] * SODIUM-URINE RANDOM (02/07/2018 11:56 AM) Component Value Ref Range Sodium, Random 35 MMOL/L Specimen Performing Laboratory Urine MAIN LAB [address] [place] [address] * CREATININE-URINE RANDOM (02/07/2018 11:56 AM) Component Value Ref Range Creatinine, Random 79 MG/DL Specimen Performing Laboratory Urine MAIN LAB [address] [place] [address] * URIC ACID (02/07/2018 4:40 AM) Component Value Ref Range Uric Acid 6.5 4.0 - 8.0 MG/DL Specimen Performing Laboratory Blood MAIN LAB [address] [place] [address] * PHOSPHORUS (02/07/2018 4:40 AM) Component Value Ref Range Phosphorus 4.8 (H) 2.0 - 4.0 MG/DL Specimen Performing Laboratory Blood MAIN LAB [address] [place], [place] [id number] * MAGNESIUM (02/07/2018 4:40 AM) Component Value Ref Range Magnesium 2.1 1.6 - 2.6 mg/dL Specimen Performing Laboratory Blood MAIN LAB [address] [place] [address] * COMPREHENSIVE METABOLIC PANEL (02/07/2018 4:40 AM) Component Value Ref Range Sodium 137 137 - 147 MMOL/L Potassium 4.1 3.5 - 5.1 MMOL/L Chloride 99 98 - 110 MMOL/L Glucose 109 (H) 70 - 100 MG/DL Blood Urea Nitrogen 46 (H) 7 - 25 MG/DL Creatinine 1.20 0.4 - 1.24 MG/DL Calcium 9.5 8.5 - 10.6 MG/DL Total Protein 6.4 6.0 - 8.0 G/DL Total Bilirubin 1.3 (H) 0.3 - 1.2 MG/DL Albumin 3.1 (L) 3.5 - 5.0 G/DL Alk Phosphatase 107 25 - 110 U/L AST (SGOT) 38 7 - 40 U/L CO2 28 21 - 30 MMOL/L ALT (SGPT) 56 7 - 56 U/L Anion Gap 10 3 - 12 eGFR Non >60 >60 [...] Specimen Performing Laboratory Blood MAIN LAB [address] [place] [address] * PROTIME INR (PT) (02/07/2018 4:40 AM) Component Value Ref Range INR 1.6 (H) 0.8 - 1.2 Specimen Performing Laboratory Blood MAIN LAB [address] [place] [address] * CBC AND DIFF (02/07/2018 4:40 AM) Component Value Ref Range White Blood Cells 19.8 (H) 4.5 - 11.0 K/UL RBC 4.02 (L) 4.4 - 5.5 M/UL Hemoglobin 12.4 (L) 13.5 - 16.5 GM/DL Hematocrit 35.7 (L) 40 - 50 % MCV 88.8 80 - 100 FL MCH 30.7 26 - 34 PG MCHC 34.6 32.0 - 36.0 G/DL RDW 14.3 11 - 15 % Platelet Count 228 150 - 400 K/UL MPV 6.8 (L) 7 - 11 FL Neutrophils 98 (H) 41 - 77 % Lymphocytes 1 (L) 24 - 44 % Monocytes 0 (L) 4 - 12 % Eosinophils 0 0 - 5 % Basophils 1 0 - 2 % Absolute Neutrophil Count 19.40 (H) 1.8 - 7.0 K/UL Absolute Lymph Count 0.30 (L) 1.0 - 4.8 K/UL Absolute Monocyte Count 0.10 0 - 0.80 K/UL Absolute Eosinophil Count 0.00 0 - 0.45 K/UL Absolute Basophil Count 0.10 0 - 0.20 K/UL Specimen Performing Laboratory Blood [facility] [address] [place] [address] * 2-D + DOPPLER ECHOCARDIOGRAM (02/06/2018 2:36 [...] 0.77 E/E' ratio 8.22 CV ECHO PV PICTURE FRAMER Amber RN LV mass 81.37 96 - 200 g RWT 0.54 <=0.42 TV rest pulmonary artery NA mmHg pressure Cardiology Ultrasound Siemens [id number] Machine Left Ventricle Mass Index 40.48 50 [...] Sat-Arterial 92.0 (L) 95 - 99 % [id number] 28.1 (H) 21 - 28 MMOL/L Specimen Performing Laboratory Blood, arterial - Blood [facility] [address] [place] [address] * CULTURE-BLOOD W/SENSITIVITY (02/06/2018 5:56 AM) Component Value Ref Range Battery Name BLOOD CULTURE Specimen Description BLOOD LEFT ART STICK Special Requests NONE Culture NO GROWTH 5 DAYS Report Status FINAL 02/12/2018 Specimen Performing Laboratory Blood MAIN LAB [address] [place] [address] * STREPTOCOCCUS PNEUMO AG, URINE (02/06/2018 5:30 AM) Component Value Ref Range Battery Name STREP PNEUMO AG, UR Specimen Description URINE Special Requests NONE Antigen NEGATIVE Report Status FINAL 02/06/2018 Specimen Performing Laboratory Urine MAIN LAB [address] [place] [address] * LEGIONELLA ANTIGEN URINE,RAN (02/06/2018 5:30 AM) Component Value Ref Range Battery Name LEGIONELLA URINE ANTIGEN Specimen Description URINE Special Requests NONE Antigen NEGATIVE Report Status FINAL 02/06/2018 Specimen Performing Laboratory Urine MAIN LAB [address] [place] [address] * CULTURE-URINE W/SENSITIVITY (02/06/2018 5:30 AM) Component Value Ref Range Battery Name URINE CULTURE Specimen Description URINE Special Requests NONE Culture NO GROWTH Report Status FINAL 02/07/2018 Specimen Performing Laboratory Urine MAIN LAB [address] [place] [address] * CULTURE-BLOOD W/SENSITIVITY (02/06/2018 5:07 AM) Component Value Ref Range Battery Name BLOOD CULTURE Specimen Description BLOOD LEFT PORT Special Requests NONE Culture NO GROWTH 5 DAYS Report Status FINAL 02/12/2018 Specimen Performing Laboratory Blood MAIN LAB [address] [place] [address] * GRAM STAIN (02/06/2018 4:15 AM) Component Value Ref Range Battery Name GRAM STAIN Specimen Description TRACHEAL ASPIRATE Special Requests NONE Gram Stain GREATER THAN 25/LPF NEUTROPHILS 10-25/LPF SQUAMOUS EPITHELIAL CELLS MANY MIXED BACTERIA Report Status FINAL 02/06/2018 Specimen Performing Laboratory Tracheal Aspirate MAIN LAB [address] [place] [address] * CULTURE-RESP,LOWER W/SENSITIVITY (02/06/2018 4:15 AM) Component Value Ref Range Battery Name LOWER RESP CULTURE Specimen Description TRACHEAL ASPIRATE Special Requests NONE Direct Gram Stain GREATER THAN 25/LPF NEUTROPHILS 10-25/LPF SQUAMOUS EPITHELIAL CELLS MANY MIXED BACTERIA Culture Heavy growth NORMAL OROPHARYNGEAL WHIT Report Status FINAL 02/08/2018 Specimen Performing Laboratory Tracheal Aspirate MAIN LAB [address] [place] [address] * URIC ACID (02/06/2018 3:58 AM) Component Value Ref Range Uric Acid 8.3 (H) 4.0 - 8.0 MG/DL Specimen Performing Laboratory MAIN LAB [address] [place] [address] * LACTIC ACID (BG - RAPID LACTATE) (02/06/2018 3:58 AM) Component Value Ref Range Lactic Acid,BG 1.4 0.5 - 2.0 MMOL/L Specimen Performing Laboratory Blood MAIN LAB [address] [place] [address] * PROCALCITONIN (02/06/2018 3:58 AM) Component Value Ref Range Procalcitonin 0.25 (H) <0.10 NG/ML Specimen Performing Laboratory Blood MAIN LAB [address] [place] [address] * CBC (02/06/2018 3:58 AM) Component Value Ref Range White Blood Cells 20.9 (H) 4.5 - 11.0 K/UL RBC 4.51 4.4 - 5.5 M/UL Hemoglobin 13.5 13.5 - 16.5 GM/DL Hematocrit 40.6 40 - 50 % MCV 90.1 80 - 100 FL MCH 30.0 26 - 34 PG MCHC 33.3 32.0 - 36.0 G/DL RDW 14.0 11 - 15 % Platelet Count 269 150 - 400 K/UL MPV 6.7 (L) 7 - 11 FL Specimen Performing Laboratory Blood MAIN LAB [address] [place] [address] * COMPREHENSIVE METABOLIC PANEL (02/06/2018 3:58 AM) Component Value Ref Range Sodium 137 137 - 147 MMOL/L Potassium 4.4 3.5 - 5.1 MMOL/L Chloride 99 98 - 110 MMOL/L Glucose 105 (H) 70 - 100 MG/DL Blood Urea Nitrogen 36 (H) 7 - 25 MG/DL Creatinine 1.08 0.4 - 1.24 MG/DL Calcium 10.0 8.5 - 10.6 MG/DL Total Protein 7.2 6.0 - 8.0 G/DL Total Bilirubin 1.2 0.3 - 1.2 MG/DL Albumin 3.5 3.5 - 5.0 G/DL Alk Phosphatase 114 (H) 25 - 110 U/L AST (SGOT) 27 7 - 40 U/L CO2 27 21 - 30 MMOL/L ALT (SGPT) 27 7 - 56 U/L Anion Gap 11 3 - 12 eGFR Non >60 >60 [...] questions. Specimen Performing Laboratory Blood MAIN LAB [address] [place] [address] * TROPONIN-I (02/06/2018 3:58 AM) Component Value Ref Range Troponin-I 0.03 0.0 - 0.05 NG/ML Specimen Performing Laboratory Blood MAIN LAB [address] [place] [address] * PHOSPHORUS (02/06/2018 3:58 AM) Component Value Ref Range Phosphorus 4.8 (H) 2.0 - 4.0 MG/DL Specimen Performing Laboratory Blood MAIN LAB [address] [place] [address] * MAGNESIUM (02/06/2018 3:58 AM) Component Value Ref Range Magnesium 2.0 1.6 - 2.6 mg/dL Specimen Performing Laboratory Blood MAIN LAB [address] [place] [address] * BNP (B-TYPE NATRIURETIC PEPTI) (02/06/2018 3:58 AM) Component Value Ref Range B Type Natriuretic 153.0 (H) 0 - 100 PG/ML Peptide Specimen Performing Laboratory Blood MAIN LAB [address] [place] [address] * PHOSPHORUS (02/06/2018 3:34 AM) Component Value Ref Range Phosphorus 4.7 (H) 2.0 - 4.0 MG/DL Specimen Performing Laboratory Blood MAIN LAB [address] [place] [address] * MAGNESIUM (02/06/2018 3:34 AM) Component Value Ref Range Magnesium 2.0 1.6 - 2.6 mg/dL Specimen Performing Laboratory Blood MAIN LAB [address] [place], [place] [id number] * COMPREHENSIVE METABOLIC PANEL (02/06/2018 3:34 AM) Component Value Ref Range Sodium 138 137 - 147 MMOL/L Potassium 4.4 3.5 - 5.1 MMOL/L Chloride 100 98 - 110 MMOL/L Glucose 103 (H) 70 - 100 MG/DL Blood Urea Nitrogen 36 (H) 7 - 25 MG/DL Creatinine 0.99 0.4 - 1.24 MG/DL Calcium 9.8 8.5 - 10.6 MG/DL Total Protein 7.0 6.0 - 8.0 G/DL Total Bilirubin 1.1 0.3 - 1.2 MG/DL Albumin 3.4 (L) 3.5 - 5.0 G/DL Alk Phosphatase 115 (H) 25 - 110 U/L AST (SGOT) 28 7 - 40 U/L CO2 29 21 - 30 MMOL/L ALT (SGPT) 31 7 - 56 U/L Anion Gap 9 3 - 12 eGFR Non >60 >60 [...] Specimen Performing Laboratory Blood MAIN LAB [address] [place] [address] * CBC (02/06/2018 3:34 AM) Component Value Ref Range White Blood Cells 19.4 (H) 4.5 - 11.0 K/UL RBC 4.36 (L) 4.4 - 5.5 M/UL Hemoglobin 13.3 (L) 13.5 - 16.5 GM/DL Hematocrit 39.1 (L) 40 - 50 % MCV 89.7 80 - 100 FL MCH 30.5 26 - 34 PG MCHC 34.0 32.0 - 36.0 G/DL RDW 13.7 11 - 15 % Platelet Count 280 150 - 400 K/UL MPV 6.8 (L) 7 - 11 FL Specimen Performing Laboratory Blood [facility] [address] [place] [address] * POC IONIZED CALCIUM (02/06/2018 3:27 AM) Component Value Ref Range Ionized Calcium-POC 1.23 1.0 - 1.3 MMOL/L Specimen Performing Laboratory [facility] [address] [place] [address] * POC SODIUM (02/06/2018 3:27 AM) Component Value Ref Range Sodium-POC 138 137 - 147 MMOL/L Specimen Performing Laboratory [facility] [address] [place] [address] * POC POTASSIUM (02/06/2018 3:27 AM) Component Value Ref Range Potassium-POC 4.3 3.5 - 5.1 MMOL/L Specimen Performing Laboratory [facility] [address] [place] [address] * POC HEMATOCRIT (02/06/2018 3:27 AM) Component Value Ref Range Hemoglobin POC 13.6 13.5 - 16.5 GM/DL Hematocrit POC 40.0 40 - 50 % Specimen Performing Laboratory [facility] [address] [place], [place] [id number] * POC BLOOD GAS ARTERIAL (02/06/2018 3:27 AM) Component Value Ref Range PH-ART-POC 7.50 (H) 7.35 - 7.45 [id number] 37 35 - 45 MMHG PO2-ART-POC 55 (L) 80 - 100 MMHG Base Ex-ART-POC 6.0 MMOL/L O2 Sat-ART-POC 91.0 (L) 95 - 99 % [id number] 28.7 (H) 21 - 28 MMOL/L Specimen Performing Laboratory [facility] [address] [place], [place] [id number] * POC GLUCOSE (02/06/2018 3:21 AM) Component Value Ref Range Glucose, POC 105 (H) 70 - 100 MG/DL Specimen Performing Laboratory [facility] [address] [place] [address] * BLOOD BANK SAMPLE HOLD (02/06/2018 3:12 AM) Component Value Ref Range BB Sample hold IN LAB Specimen Performing Laboratory [facility] [address] [place] [address] * LACTIC ACID (BG - RAPID LACTATE) (02/06/2018 3:12 AM) Component Value Ref Range Lactic Acid,BG 1.4 0.5 - 2.0 MMOL/L Specimen Performing Laboratory Blood [facility] [address] [place], [place] [id number] * PTT (APTT) (02/06/2018 3:12 AM) Component Value Ref Range APTT 28.7 21.0 - 39.0 SEC Specimen Performing Laboratory Blood MAIN LAB [address] [place] [address] * PROTIME INR (PT) (02/06/2018 3:12 AM) Component Value Ref Range INR 1.1 0.8 - 1.2 Specimen Performing Laboratory Blood MAIN LAB [address] [place] [address] * COMPREHENSIVE METABOLIC PANEL (02/06/2018 2:20 AM) Component Value Ref Range Sodium 137 137 - 147 MMOL/L Potassium 4.6 3.5 - 5.1 MMOL/L Chloride 103 98 - 110 MMOL/L Glucose 99 70 - 100 MG/DL Blood Urea Nitrogen 35 (H) 7 - 25 MG/DL Creatinine 1.00 0.4 - 1.24 MG/DL Calcium 9.5 8.5 - 10.6 MG/DL Total Protein 6.5 6.0 - 8.0 G/DL Total Bilirubin 1.0 0.3 - 1.2 MG/DL Albumin 3.1 (L) 3.5 - 5.0 G/DL Alk Phosphatase 104 25 - 110 U/L AST (SGOT) 23 7 - 40 U/L CO2 26 21 - 30 MMOL/L ALT (SGPT) 23 7 - 56 U/L Anion Gap 8 3 - 12 eGFR Non >60 >60 [...] Specimen Performing Laboratory Blood MAIN LAB [address] [place] [address] * CBC AND DIFF (02/06/2018 2:20 AM) Component Value Ref Range White Blood Cells 18.6 (H) 4.5 - 11.0 K/UL RBC 4.11 (L) 4.4 - 5.5 M/UL Hemoglobin 12.2 (L) 13.5 - 16.5 GM/DL Hematocrit 37.2 (L) 40 - 50 % MCV 90.6 80 - 100 FL MCH 29.7 26 - 34 PG MCHC 32.8 32.0 - 36.0 G/DL RDW 13.9 11 - 15 % Platelet Count 249 150 - 400 K/UL MPV 7.0 7 - 11 FL Neutrophils 97 (H) 41 - 77 % Lymphocytes 1 (L) 24 - 44 % Monocytes 2 (L) 4 - 12 % Eosinophils 0 0 - 5 % Basophils 0 0 - 2 % Absolute Neutrophil Count 18.10 (H) 1.8 - 7.0 K/UL Absolute Lymph Count 0.30 (L) 1.0 - 4.8 K/UL Absolute Monocyte Count 0.30 0 - 0.80 K/UL Absolute Eosinophil Count 0.00 0 - 0.45 K/UL Absolute Basophil Count 0.00 0 - 0.20 K/UL Specimen Performing Laboratory Blood [facility] MAIN [facility] [address] [place] [address] * CHEST SINGLE VIEW (02/06/2018 2:13 AM) Specimen Performing Laboratory [facility] RAD RESULTS Impressions 1. Development of small bilateral pleural effusions, greater on the right, with adjacent consolidation likely atelectasis. 2. Prominence of the mediastinum and bilateral katia compatible with known lymphadenopathy. Approved by Shen Ahuja M.D. on 02/06/2018 10:27 AM By my electronic signature, I attest that I have personally reviewed the images for this examination and formulated the interpretations and opinions expressed in this report Finalized by Yfn Burgess M.D. on 02/06/2018 10:44 AM. Dictated by Shen Ahuja M.D. on 02/06/2018 9:19 AM. Narrative Procedure: CHEST SINGLE VIEW Clinical Indication: Hypoxia. Comparison: Chest radiograph January 26, 2018. FINDINGS: Portable upright AP chest radiograph were obtained. Tracheostomy tube remains in place. Interval removal of enteric tube. Left subclavian chest port with tip overlying the low SVC. Cardiac silhouette is normal in size without pulmonary venous congestion. Prominence of the upper mediastinum and bilateral hilar regions likely reflecting known lymphadenopathy. Development of small bilateral pleural effusions, greater on the right, with adjacent consolidation likely atelectasis. No pneumothorax. Procedure Note Interface, Radiant Results - 02/06/2018 10:47 AM CDT Procedure: CHEST SINGLE VIEW Clinical Indication: Hypoxia. Comparison: Chest radiograph January 26, 2018. FINDINGS: Portable upright AP chest radiograph were obtained. Tracheostomy tube remains in place. Interval removal of enteric tube. Left subclavian chest port with tip overlying the low SVC. Cardiac silhouette is normal in size without pulmonary venous congestion. Prominence of the upper mediastinum and bilateral hilar regions likely reflecting known lymphadenopathy. Development of small bilateral pleural effusions, greater on the right, with adjacent consolidation likely atelectasis. No pneumothorax. IMPRESSION 1. Development of small bilateral pleural effusions, greater on the right, with adjacent consolidation likely atelectasis. 2. Prominence of the mediastinum and bilateral katia compatible with known lymphadenopathy. Approved by Shen Ahuja M.D. on 02/06/2018 10:27 AM By my electronic signature, I attest that I have personally reviewed the images for this examination and formulated the interpretations and opinions expressed in this report Finalized by Yfn Burgess M.D. on 02/06/2018 10:44 AM. Dictated by Shen Ahuja M.D. on 02/06/2018 9:19 AM. * IR GASTROSTOMY (02/05/2018 8:23 AM) Specimen Performing Laboratory [facility] RESULTS Impressions 1.Successful placement of gastrostomy tube as described above. I, Hong Mcmahon M.D, the attending radiologist, was present for [...] expressed in this report Finalized by HONG MCMAHON on 02/06/2018 10:30 AM. Dictated by Billy Noel M.D. on 8:22 AM. Narrative GASTROSTOMY TUBE PLACEMENT UNDER ULTRASOUND AND FLUOROSCOPIC GUIDANCE INDICATION: Oral dysphagia. Neck mass. OPERATING PHYSICIAN: Dr. Hong Mcmahon and Dr. Doretha Noel. MEDICATIONS:I was personally [...] CONTRAST:50 mL of Isovue 300 CATHETER: 18 Serbian Ross G tube COMPLICATIONS: None TECHNIQUE/FINDINGS: Following [...] over the wire into the stomach.A 18 Serbian Ross gastrostomy tube was placed over the [...] dysphagia. Neck mass. OPERATING PHYSICIAN: Dr. Hong Mcmahon and Dr. Doretha Noel. MEDICATIONS: I was [...] 50 mL of Isovue 300 CATHETER: 18 Serbian Ross G tube COMPLICATIONS: None TECHNIQUE/FINDINGS: Following [...] the wire into the stomach. A 18 Serbian Ross gastrostomy tube was placed over the wire and into the stomach. Intraluminal position was again confirmed with the injection of contrast, and the gastrostomy tube balloon was inflated with 10 mL of sterile water. The patient tolerated the procedure well, without complication. IMPRESSION 1. Successful placement of gastrostomy tube as described above. IHong M.D, the attending radiologist, was present for [...] expressed in this report Finalized by HONG MCMAHON on 02/06/2018 10:30 AM. Dictated by Billy Noel M.D. on 8:22 AM. * COMPREHENSIVE METABOLIC PANEL (02/05/2018 4:50 AM) Component Value Ref Range Sodium 138 137 - 147 MMOL/L Potassium 4.7 3.5 - 5.1 MMOL/L Chloride 104 98 - 110 MMOL/L Glucose 110 (H) 70 - 100 MG/DL Blood Urea Nitrogen 33 (H) 7 - 25 MG/DL Creatinine 0.84 0.4 - 1.24 MG/DL Calcium 9.7 8.5 - 10.6 MG/DL Total Protein 6.7 6.0 - 8.0 G/DL Total Bilirubin 0.5 0.3 - 1.2 MG/DL Albumin 3.1 (L) 3.5 - 5.0 G/DL Alk Phosphatase 117 (H) 25 - 110 U/L AST (SGOT) 22 7 - 40 U/L CO2 27 21 - 30 MMOL/L ALT (SGPT) 27 7 - 56 U/L Anion Gap 7 [...] Specimen Performing Laboratory [facility] [address] [place] [address] * CBC AND DIFF (02/05/2018 4:50 AM) Component Value Ref Range White Blood Cells 26.7 (H) 4.5 - 11.0 K/UL RBC 4.15 (L) 4.4 - 5.5 M/UL Hemoglobin 12.3 (L) 13.5 - 16.5 GM/DL Hematocrit 37.5 (L) 40 - 50 % MCV 90.4 80 - 100 FL MCH 29.7 26 - 34 PG MCHC 32.8 32.0 - 36.0 G/DL RDW 14.1 11 - 15 % Platelet Count 250 150 - 400 K/UL MPV 7.1 7 - 11 FL Neutrophils 95 (H) 41 - 77 % Lymphocytes 1 (L) 24 - 44 % Monocytes 3 (L) 4 - 12 % Eosinophils 0 0 - 5 % Basophils 1 0 - 2 % Absolute Neutrophil Count 25.60 (H) 1.8 - 7.0 K/UL Absolute Lymph Count 0.30 (L) 1.0 - 4.8 K/UL Absolute Monocyte Count 0.70 0 - 0.80 K/UL Absolute Eosinophil Count 0.00 0 - 0.45 K/UL Absolute Basophil Count 0.10 0 - 0.20 K/UL Specimen Performing Laboratory [facility] [address] [place] [address] * COMPREHENSIVE METABOLIC PANEL (02/04/2018 2:58 AM) Component Value Ref Range Sodium 137 137 - 147 MMOL/L Potassium 4.5 3.5 - 5.1 MMOL/L Chloride 106 98 - 110 MMOL/L Glucose 129 (H) 70 - 100 MG/DL Blood Urea Nitrogen 27 (H) 7 - 25 MG/DL Creatinine 0.73 0.4 - 1.24 MG/DL Calcium 9.2 8.5 - 10.6 MG/DL Total Protein 6.5 6.0 - 8.0 G/DL Total Bilirubin 0.5 0.3 - 1.2 MG/DL Albumin 2.9 (L) 3.5 - 5.0 G/DL Alk Phosphatase 116 (H) 25 - 110 U/L AST (SGOT) 32 7 - 40 U/L CO2 25 21 - 30 MMOL/L ALT (SGPT) 32 7 - 56 U/L Anion Gap 6 3 - 12 eGFR Non >60 >60 [...] Performing Laboratory [facility] [address] [place] [address] * CBC AND DIFF (02/04/2018 2:58 AM) Component Value Ref Range White Blood Cells 25.8 (H) 4.5 - 11.0 K/UL RBC 4.05 (L) 4.4 - 5.5 M/UL Hemoglobin 12.1 (L) 13.5 - 16.5 GM/DL Hematocrit 37.1 (L) 40 - 50 % MCV 91.6 80 - 100 FL MCH 30.0 26 - 34 PG MCHC 32.7 32.0 - 36.0 G/DL RDW 14.5 11 - 15 % Platelet Count 243 150 - 400 K/UL MPV 6.9 (L) 7 - 11 FL Neutrophils 97 (H) 41 - 77 % Lymphocytes 1 (L) 24 - 44 % Monocytes 2 (L) 4 - 12 % Eosinophils 0 0 - 5 % Basophils 0 0 - 2 % Absolute Neutrophil Count 24.90 (H) 1.8 - 7.0 K/UL Absolute Lymph Count 0.30 (L) 1.0 - 4.8 K/UL Absolute Monocyte Count 0.60 0 - 0.80 K/UL Absolute Eosinophil Count 0.00 0 - 0.45 K/UL Absolute Basophil Count 0.00 0 - 0.20 K/UL Specimen Performing Laboratory [facility] [address] [place] [address] * VRE SCREEN (02/03/2018 10:27 PM) Component Value Ref Range Battery Name VRE SCREEN Specimen Description PERIRECTAL SWAB Special Requests NONE Culture NO VRE ISOLATED Report Status FINAL 02/05/2018 Specimen Performing Laboratory Perirectal Swab [facility] [address] [place] [address] * IR CENTRAL VENOUS CATHETER (02/03/2018 8:43 [...] and upper superior vena cava. A 5 Serbian vascular sheath and Kumpe catheter were then [...] and upper superior vena cava. A 5 Serbian vascular sheath and Kumpe catheter were then [...] port using ultrasound and fluoroscopic guidance. * COMPREHENSIVE METABOLIC PANEL (02/03/2018 6:57 AM) Component Value Ref Range Sodium 138 137 - 147 MMOL/L Potassium 4.4 3.5 - 5.1 MMOL/L Chloride 101 98 - 110 MMOL/L Glucose 108 (H) 70 - 100 MG/DL Blood Urea Nitrogen 29 (H) 7 - 25 MG/DL Creatinine 0.96 0.4 - 1.24 MG/DL Calcium 9.9 8.5 - 10.6 MG/DL Total Protein 6.9 6.0 - 8.0 G/DL Total Bilirubin 0.6 0.3 - 1.2 MG/DL Albumin 3.5 3.5 - 5.0 G/DL Alk Phosphatase 124 (H) 25 - 110 U/L AST (SGOT) 31 7 - 40 U/L CO2 31 (H) 21 - 30 MMOL/L ALT (SGPT) 31 7 - 56 U/L Anion Gap 6 3 - 12 eGFR Non >60 >60 [...] questions. Specimen Performing Laboratory [facility] [address] [place] [address] * CBC AND DIFF (02/03/2018 6:57 AM) Component Value Ref Range White Blood Cells 20.3 (H) 4.5 - 11.0 K/UL RBC 4.40 4.4 - 5.5 M/UL Hemoglobin 13.2 (L) 13.5 - 16.5 GM/DL Hematocrit 39.4 (L) 40 - 50 % MCV 89.5 80 - 100 FL MCH 30.0 26 - 34 PG MCHC 33.6 32.0 - 36.0 G/DL RDW 13.5 11 - 15 % Platelet Count 258 150 - 400 K/UL MPV 7.3 7 - 11 FL Neutrophils 92 (H) 41 - 77 % Lymphocytes 2 (L) 24 - 44 % Monocytes 6 4 - 12 % Eosinophils 0 0 - 5 % Basophils 0 0 - 2 % Absolute Neutrophil Count 18.50 (H) 1.8 - 7.0 K/UL Absolute Lymph Count 0.50 (L) 1.0 - 4.8 K/UL Absolute Monocyte Count 1.20 (H) 0 - 0.80 K/UL Absolute Eosinophil Count 0.10 0 - 0.45 K/UL Absolute Basophil Count 0.10 0 - 0.20 K/UL Specimen Performing Laboratory [facility] [address] [place] [address] * TROPONIN-I (02/02/2018 2:46 AM) Component Value Ref Range Troponin-I 0.02 0.0 - 0.05 NG/ML Specimen Performing Laboratory [facility] [address] [place] [address] * COMPREHENSIVE METABOLIC PANEL (02/02/2018 2:46 AM) Component Value Ref Range Sodium 138 137 - 147 MMOL/L Potassium 4.2 3.5 - 5.1 MMOL/L Chloride 102 98 - 110 MMOL/L Glucose 118 (H) 70 - 100 MG/DL Blood Urea Nitrogen 29 (H) 7 - 25 MG/DL Creatinine 0.86 0.4 - 1.24 MG/DL Calcium 9.4 8.5 - 10.6 MG/DL Total Protein 6.8 6.0 - 8.0 G/DL Total Bilirubin 0.4 0.3 - 1.2 MG/DL Albumin 3.3 (L) 3.5 - 5.0 G/DL Alk Phosphatase 114 (H) 25 - 110 U/L AST (SGOT) 26 7 - 40 U/L CO2 27 21 - 30 MMOL/L ALT (SGPT) 24 7 - 56 U/L Anion Gap 9 3 - 12 eGFR Non >60 >60 [...] Specimen Performing Laboratory [facility] [address] [place] [address] * CBC AND DIFF (02/02/2018 2:46 AM) Component Value Ref Range White Blood Cells 18.7 (H) 4.5 - 11.0 K/UL RBC 4.46 4.4 - 5.5 M/UL Hemoglobin 13.3 (L) 13.5 - 16.5 GM/DL Hematocrit 40.3 40 - 50 % MCV 90.4 80 - 100 FL MCH 29.8 26 - 34 PG MCHC 32.9 32.0 - 36.0 G/DL RDW 13.9 11 - 15 % Platelet Count 281 150 - 400 K/UL MPV 7.1 7 - 11 FL Neutrophils 91 (H) 41 - 77 % Lymphocytes 3 (L) 24 - 44 % Monocytes 5 4 - 12 % Eosinophils 1 0 - 5 % Basophils 0 0 - 2 % Absolute Neutrophil Count 17.10 (H) 1.8 - 7.0 K/UL Absolute Lymph Count 0.60 (L) 1.0 - 4.8 K/UL Absolute Monocyte Count 0.90 (H) 0 - 0.80 K/UL Absolute Eosinophil Count 0.10 0 - 0.45 K/UL Absolute Basophil Count 0.00 0 - 0.20 K/UL Specimen Performing Laboratory [facility] [address] [place] [address] * COMPREHENSIVE METABOLIC PANEL (02/01/2018 3:43 AM) Component Value Ref Range Sodium 137 137 - 147 MMOL/L Potassium 4.1 3.5 - 5.1 MMOL/L Chloride 100 98 - 110 MMOL/L Glucose 120 (H) 70 - 100 MG/DL Blood Urea Nitrogen 27 (H) 7 - 25 MG/DL Creatinine 0.82 0.4 - 1.24 MG/DL Calcium 9.6 8.5 - 10.6 MG/DL Total Protein 7.1 6.0 - 8.0 G/DL Total Bilirubin 0.4 0.3 - 1.2 MG/DL Albumin 3.4 (L) 3.5 - 5.0 G/DL Alk Phosphatase 120 (H) 25 - 110 U/L AST (SGOT) 23 7 - 40 U/L CO2 27 21 - 30 MMOL/L ALT (SGPT) 17 7 - 56 U/L Anion Gap 10 3 - 12 eGFR Non >60 >60 [...] Specimen Performing Laboratory [facility] [address] [place] [address] * CBC AND DIFF (02/01/2018 3:43 AM) Component Value Ref Range White Blood Cells 21.8 (H) 4.5 - 11.0 K/UL RBC 4.43 4.4 - 5.5 M/UL Hemoglobin 13.3 (L) 13.5 - 16.5 GM/DL Hematocrit 39.7 (L) 40 - 50 % MCV 89.8 80 - 100 FL MCH 30.2 26 - 34 PG MCHC 33.6 32.0 - 36.0 G/DL RDW 13.8 11 - 15 % Platelet Count 267 150 - 400 K/UL MPV 7.0 7 - 11 FL Neutrophils 91 (H) 41 - 77 % Lymphocytes 4 (L) 24 - 44 % Monocytes 4 4 - 12 % Eosinophils 1 0 - 5 % Basophils 0 0 - 2 % Absolute Neutrophil Count 19.90 (H) 1.8 - 7.0 K/UL Absolute Lymph Count 0.80 (L) 1.0 - 4.8 K/UL Absolute Monocyte Count 0.90 (H) 0 - 0.80 K/UL Absolute Eosinophil Count 0.20 0 - 0.45 K/UL Absolute Basophil Count 0.00 0 - 0.20 K/UL Specimen Performing Laboratory [facility] [address] [place] [address] * PHOSPHORUS (01/31/2018 3:53 AM) Component Value Ref Range Phosphorus 4.9 (H) 2.0 - 4.0 MG/DL Specimen Performing Laboratory [facility] [address] [place] [address] * MAGNESIUM (01/31/2018 3:53 AM) Component Value Ref Range Magnesium 2.1 1.6 - 2.6 mg/dL Specimen Performing Laboratory [facility] [address] [place] [address] * COMPREHENSIVE METABOLIC PANEL (01/31/2018 3:53 AM) Component Value Ref Range Sodium 136 (L) 137 - 147 MMOL/L Potassium 4.4 3.5 - 5.1 MMOL/L Chloride 101 98 - 110 MMOL/L Glucose 120 (H) 70 - 100 MG/DL Blood Urea Nitrogen 25 7 - 25 MG/DL Creatinine 0.77 0.4 - 1.24 MG/DL Calcium 9.4 8.5 - 10.6 MG/DL Total Protein 6.8 6.0 - 8.0 G/DL Total Bilirubin 0.3 0.3 - 1.2 MG/DL Albumin 3.4 (L) 3.5 - 5.0 G/DL Alk Phosphatase 106 25 - 110 U/L AST (SGOT) 18 7 - 40 U/L CO2 27 21 - 30 MMOL/L ALT (SGPT) 13 7 - 56 U/L Anion Gap 8 3 - 12 eGFR Non >60 >60 [...] Specimen Performing Laboratory [facility] [address] [place] [address] * CBC AND DIFF (01/31/2018 3:53 AM) Component Value Ref Range White Blood Cells 21.1 (H) 4.5 - 11.0 K/UL RBC 4.34 (L) 4.4 - 5.5 M/UL Hemoglobin 13.2 (L) 13.5 - 16.5 GM/DL Hematocrit 38.8 (L) 40 - 50 % MCV 89.5 80 - 100 FL MCH 30.3 26 - 34 PG MCHC 33.9 32.0 - 36.0 G/DL RDW 13.4 11 - 15 % Platelet Count 236 150 - 400 K/UL MPV 7.5 7 - 11 FL Neutrophils 89 (H) 41 - 77 % Lymphocytes 4 (L) 24 - 44 % Monocytes 5 4 - 12 % Eosinophils 2 0 - 5 % Basophils 0 0 - 2 % Absolute Neutrophil Count 18.70 (H) 1.8 - 7.0 K/UL Absolute Lymph Count 0.90 (L) 1.0 - 4.8 K/UL Absolute Monocyte Count 1.00 (H) 0 - 0.80 K/UL Absolute Eosinophil Count 0.40 0 - 0.45 K/UL Absolute Basophil Count 0.10 0 - 0.20 K/UL Specimen Performing Laboratory [facility] [address] [place] [address] * ABDOMEN AP ONLY (01/30/2018 8:14 AM) Specimen Performing Laboratory [facility] RESULTS Impressions No radiographic evidence of bowel obstruction. Distal antral or pyloric placement of the tip of the enteric tube. Finalized by Yfn Burgess M.D. on 01/30/2018 8:27 AM. Dictated by Yfn Burgess M.D. on 01/30/2018 8:25 AM. Narrative evaluate for ileus/obstruction. Technique: 2 AP supine views of the abdomen were obtained. Comparison: Comparison is made to an examination of 01/25/2018.. Findings: The bowel gas pattern is nonobstructive. There is gas distributed throughout the bowel to the level of the rectum. Retained stool is distributed from the level of the ascending colon through the descending colon. An enteric tube is in place with its tip in the region of the distal antrum or pylorus. No lytic or sclerotic bony lesions are identified. Procedure Note Interface, Radiant Results - 01/30/2018 8:30 AM CDT evaluate for ileus/obstruction. Technique: 2 AP supine views of the abdomen were obtained. Comparison: Comparison is made to an examination of 01/25/2018.. Findings: The bowel gas pattern is nonobstructive. There is gas distributed throughout the bowel to the level of the rectum. Retained stool is distributed from the level of the ascending colon through the descending colon. An enteric tube is in place with its tip in the region of the distal antrum or pylorus. No lytic or sclerotic bony lesions are identified. IMPRESSION No radiographic evidence of bowel obstruction. Distal antral or pyloric placement of the tip of the enteric tube. Finalized by Yfn Burgess M.D. on 01/30/2018 8:27 AM. Dictated by Yfn Burgess M.D. on 01/30/2018 8:25 AM. * PHOSPHORUS (01/30/2018 4:21 AM) Component Value Ref Range Phosphorus 4.4 (H) 2.0 - 4.0 MG/DL Specimen Performing Laboratory [facility] [address] [place] [address] * MAGNESIUM (01/30/2018 4:21 AM) Component Value Ref Range Magnesium 1.9 1.6 - 2.6 mg/dL Specimen Performing Laboratory [facility] [address] [place] [address] * COMPREHENSIVE METABOLIC PANEL (01/30/2018 4:21 AM) Component Value Ref Range Sodium 138 137 - 147 MMOL/L Potassium 4.5 3.5 - 5.1 MMOL/L Chloride 100 98 - 110 MMOL/L Glucose 112 (H) 70 - 100 MG/DL Blood Urea Nitrogen 24 7 - 25 MG/DL Creatinine 0.87 0.4 - 1.24 MG/DL Calcium 9.2 8.5 - 10.6 MG/DL Total Protein 6.8 6.0 - 8.0 G/DL Total Bilirubin 0.4 0.3 - 1.2 MG/DL Albumin 3.4 (L) 3.5 - 5.0 G/DL Alk Phosphatase 112 (H) 25 - 110 U/L AST (SGOT) 17 7 - 40 U/L CO2 29 21 - 30 MMOL/L ALT (SGPT) 14 7 - 56 U/L Anion Gap 9 3 - 12 eGFR Non >60 >60 [...] Specimen Performing Laboratory [facility] [address] [place] [address] * CBC AND DIFF (01/30/2018 4:21 AM) Component Value Ref Range White Blood Cells 18.7 (H) 4.5 - 11.0 K/UL RBC 4.30 (L) 4.4 - 5.5 M/UL Hemoglobin 13.3 (L) 13.5 - 16.5 GM/DL Hematocrit 38.2 (L) 40 - 50 % MCV 88.7 80 - 100 FL MCH 30.8 26 - 34 PG MCHC 34.7 32.0 - 36.0 G/DL RDW 13.8 11 - 15 % Platelet Count 234 150 - 400 K/UL MPV 7.4 7 - 11 FL Neutrophils 87 (H) 41 - 77 % Lymphocytes 5 (L) 24 - 44 % Monocytes 6 4 - 12 % Eosinophils 2 0 - 5 % Basophils 0 0 - 2 % Absolute Neutrophil Count 16.20 (H) 1.8 - 7.0 K/UL Absolute Lymph Count 1.00 1.0 - 4.8 K/UL Absolute Monocyte Count 1.20 (H) 0 - 0.80 K/UL Absolute Eosinophil Count 0.30 0 - 0.45 K/UL Absolute Basophil Count 0.00 0 - 0.20 K/UL Specimen Performing Laboratory [facility] [address] [place] [address] * MISCELLANEOUS SURGICAL PATHOLOGY REFERENCE LAB TEST (01/29/2018 10:00 AM) Component Value Ref Range Test NUT BU IHC Reference Lab PERFORMED AT [facility] [employer] Results Ref Lab RESULTS WILL BW REPORTED IN AN ADDENDUM Specimen Mail SLIDES [id number] Specimen Performing Laboratory REFERENCE LAB * CBC AND DIFF (01/29/2018 4:07 AM) Component Value Ref Range White Blood Cells 17.5 (H) 4.5 - 11.0 K/UL RBC 4.29 (L) 4.4 - 5.5 M/UL Hemoglobin 13.1 (L) 13.5 - 16.5 GM/DL Hematocrit 38.3 (L) 40 - 50 % MCV 89.3 80 - 100 FL MCH 30.5 26 - 34 PG MCHC 34.1 32.0 - 36.0 G/DL RDW 13.8 11 - 15 % Platelet Count 220 150 - 400 K/UL MPV 7.7 7 - 11 FL Neutrophils 87 (H) 41 - 77 % Lymphocytes 4 (L) 24 - 44 % Monocytes 7 4 - 12 % Eosinophils 2 0 - 5 % Basophils 0 0 - 2 % Absolute Neutrophil Count 15.20 (H) 1.8 - 7.0 K/UL Absolute Lymph Count 0.60 (L) 1.0 - 4.8 K/UL Absolute Monocyte Count 1.30 (H) 0 - 0.80 K/UL Absolute Eosinophil Count 0.30 0 - 0.45 K/UL Absolute Basophil Count 0.10 0 - 0.20 K/UL Specimen Performing Laboratory [facility] [address] [place] [address] * COMPREHENSIVE METABOLIC PANEL (01/29/2018 4:07 AM) Component Value Ref Range Sodium 134 (L) 137 - 147 MMOL/L Potassium 4.2 3.5 - 5.1 MMOL/L Chloride 98 98 - 110 MMOL/L Glucose 112 (H) 70 - 100 MG/DL Blood Urea Nitrogen 22 7 - 25 MG/DL Creatinine 0.74 0.4 - 1.24 MG/DL Calcium 9.3 8.5 - 10.6 MG/DL Total Protein 7.0 6.0 - 8.0 G/DL Total Bilirubin 0.4 0.3 - 1.2 MG/DL Albumin 3.4 (L) 3.5 - 5.0 G/DL Alk Phosphatase 94 25 - 110 U/L AST (SGOT) 16 7 - 40 U/L CO2 29 21 - 30 MMOL/L ALT (SGPT) 14 7 - 56 U/L Anion Gap 7 [...] Specimen Performing Laboratory [facility] [address] [place] [address] * PHOSPHORUS (01/29/2018 4:07 AM) Component Value Ref Range Phosphorus 4.4 (H) 2.0 - 4.0 MG/DL Specimen Performing Laboratory [facility] [address] [place] [address] * MAGNESIUM (01/29/2018 4:07 AM) Component Value Ref Range Magnesium 2.0 1.6 - 2.6 mg/dL Specimen Performing Laboratory [facility] [address] [place] [address] * CBC AND DIFF (01/28/2018 3:51 AM) Component Value Ref Range White Blood Cells 17.7 (H) 4.5 - 11.0 K/UL RBC 4.19 (L) 4.4 - 5.5 M/UL Hemoglobin 12.9 (L) 13.5 - 16.5 GM/DL Hematocrit 37.7 (L) 40 - 50 % MCV 90.0 80 - 100 FL MCH 30.9 26 - 34 PG MCHC 34.3 32.0 - 36.0 G/DL RDW 13.6 11 - 15 % Platelet Count 211 150 - 400 K/UL MPV 7.2 7 - 11 FL Neutrophils 90 (H) 41 - 77 % Lymphocytes 3 (L) 24 - 44 % Monocytes 6 4 - 12 % Eosinophils 1 0 - 5 % Basophils 0 0 - 2 % Absolute Neutrophil Count 15.90 (H) 1.8 - 7.0 K/UL Absolute Lymph Count 0.60 (L) 1.0 - 4.8 K/UL Absolute Monocyte Count 1.00 (H) 0 - 0.80 K/UL Absolute Eosinophil Count 0.20 0 - 0.45 K/UL Absolute Basophil Count 0.00 0 - 0.20 K/UL Specimen Performing Laboratory [facility] [address] [place] [address] * COMPREHENSIVE METABOLIC PANEL (01/28/2018 3:51 AM) Component Value Ref Range Sodium 134 (L) 137 - 147 MMOL/L Potassium 4.2 3.5 - 5.1 MMOL/L Chloride 98 98 - 110 MMOL/L Glucose 106 (H) 70 - 100 MG/DL Blood Urea Nitrogen 20 7 - 25 MG/DL Creatinine 0.76 0.4 - 1.24 MG/DL Calcium 9.5 8.5 - 10.6 MG/DL Total Protein 6.9 6.0 - 8.0 G/DL Total Bilirubin 0.4 0.3 - 1.2 MG/DL Albumin 3.5 3.5 - 5.0 G/DL Alk Phosphatase 103 25 - 110 U/L AST (SGOT) 16 7 - 40 U/L CO2 28 21 - 30 MMOL/L ALT (SGPT) 11 7 - 56 U/L Anion Gap 8 3 - 12 eGFR Non >60 >60 [...] questions. Specimen Performing Laboratory [facility] [address] [place] [address] * PHOSPHORUS (01/28/2018 3:51 AM) Component Value Ref Range Phosphorus 3.8 2.0 - 4.0 MG/DL Specimen Performing Laboratory [facility] [address] [place] [address] * MAGNESIUM (01/28/2018 3:51 AM) Component Value Ref Range Magnesium 2.0 1.6 - 2.6 mg/dL Specimen Performing Laboratory [facility] [address] [place] [address] * CBC AND DIFF (01/27/2018 3:57 AM) Component Value Ref Range White Blood Cells 20.0 (H) 4.5 - 11.0 K/UL RBC 4.35 (L) 4.4 - 5.5 M/UL Hemoglobin 13.0 (L) 13.5 - 16.5 GM/DL Hematocrit 39.6 (L) 40 - 50 % MCV 91.0 80 - 100 FL MCH 29.9 26 - 34 PG MCHC 32.9 32.0 - 36.0 G/DL RDW 14.0 11 - 15 % Platelet Count 197 150 - 400 K/UL MPV 7.1 7 - 11 FL Neutrophils 90 (H) 41 - 77 % Lymphocytes 3 (L) 24 - 44 % Monocytes 7 4 - 12 % Eosinophils 0 0 - 5 % Basophils 0 0 - 2 % Absolute Neutrophil Count 17.90 (H) 1.8 - 7.0 K/UL Absolute Lymph Count 0.70 (L) 1.0 - 4.8 K/UL Absolute Monocyte Count 1.30 (H) 0 - 0.80 K/UL Absolute Eosinophil Count 0.00 0 - 0.45 K/UL Absolute Basophil Count 0.10 0 - 0.20 K/UL Specimen Performing Laboratory [facility] [address] [place] [address] * COMPREHENSIVE METABOLIC PANEL (01/27/2018 3:57 AM) Component Value Ref Range Sodium 132 (L) 137 - 147 MMOL/L Potassium 4.2 3.5 - 5.1 MMOL/L Chloride 98 98 - 110 MMOL/L Glucose 114 (H) 70 - 100 MG/DL Blood Urea Nitrogen 15 7 - 25 MG/DL Creatinine 0.82 0.4 - 1.24 MG/DL Calcium 9.6 8.5 - 10.6 MG/DL Total Protein 7.4 6.0 - 8.0 G/DL Total Bilirubin 0.5 0.3 - 1.2 MG/DL Albumin 3.8 3.5 - 5.0 G/DL Alk Phosphatase 100 25 - 110 U/L AST (SGOT) 12 7 - 40 U/L CO2 27 21 - 30 MMOL/L ALT (SGPT) 5 (L) 7 - 56 U/L Anion Gap 7 [...] Performing Laboratory [facility] [address] [place] [address] * PHOSPHORUS (01/27/2018 3:57 AM) Component Value Ref Range Phosphorus 2.8 2.0 - 4.0 MG/DL Specimen Performing Laboratory [facility] [address] [place] [address] * MAGNESIUM (01/27/2018 3:57 AM) Component Value Ref Range Magnesium 1.9 1.6 - 2.6 mg/dL Specimen Performing Laboratory [facility] [address] [place] [address] * CORTISOL,RANDOM (01/26/2018 5:50 AM) Component Value Ref Range Cortisol, Random 26.6 (H) 5.0 - 20.0 MCG/DL Specimen Performing Laboratory [facility] [address] [place] [address] * CHEST SINGLE VIEW (01/26/2018 1:05 AM) Specimen Performing Laboratory [facility] RAD RESULTS Impressions 1.Fullness of the katia and mediastinum which corresponds to adenopathy on the outside CT. 2.Development of right medial lung base mixed opacities which could represent atelectasis or pneumonia. Approved by Beltran Winchester M.D. on 01/26/2018 8:56 AM By my electronic signature, I attest that I have personally reviewed the images for this examination and formulated the interpretations and opinions expressed in this report Finalized by Clement Bentley M.D. on 01/26/2018 8:57 AM. Dictated by Beltran Winchester M.D. on 01/26/2018 7:34 AM. Narrative CHEST SINGLE VIEW Clinical Indication: Male, 42 years old. Airway bleeding Comparison: Chest x-ray January 24, 2018. Findings: Interval placement of tracheostomy tube. Enteric tube courses below the diaphragm with tip not visualized. Cardiac silhouette and pulmonary vasculature are within normal limits. There is fullness and widening of the upper mediastinum and bilateral katia. No pleural effusion or pneumothorax. Asymmetric elevation of the right hemidiaphragm. Development of right medial lung base mixed opacities. Procedure Note Interface, Radiant Results - 01/26/2018 9:00 AM CDT CHEST SINGLE VIEW Clinical Indication: Male, 42 years old. Airway bleeding Comparison: Chest x-ray January 24, 2018. Findings: Interval placement of tracheostomy tube. Enteric tube courses below the diaphragm with tip not visualized. Cardiac silhouette and pulmonary vasculature are within normal limits. There is fullness and widening of the upper mediastinum and bilateral katia. No pleural effusion or pneumothorax. Asymmetric elevation of the right hemidiaphragm. Development of right medial lung base mixed opacities. IMPRESSION 1. Fullness of the katia and mediastinum which corresponds to adenopathy on the outside CT. 2. Development of right medial lung base mixed opacities which could represent atelectasis or pneumonia. Approved by Beltran Winchester M.D. on 01/26/2018 8:56 AM By my electronic signature, I attest that I have personally reviewed the images for this examination and formulated the interpretations and opinions expressed in this report Finalized by Clement Bentley M.D. on 01/26/2018 8:57 AM. Dictated by Beltran Winchester M.D. on 01/26/2018 7:34 AM. * PTT (APTT) (01/26/2018 1:05 AM) Component Value Ref Range APTT 29.7 21.0 - 39.0 SEC Specimen Performing Laboratory [facility] [address] [place] [address] * PROTIME INR (PT) (01/26/2018 1:05 AM) Component Value Ref Range INR 1.3 (H) 0.8 - 1.2 Specimen Performing Laboratory [facility] [address] [place] [address] * CBC AND DIFF (01/26/2018 1:05 AM) Component Value Ref Range White Blood Cells 22.8 (H) 4.5 - 11.0 K/UL RBC 4.51 4.4 - 5.5 M/UL Hemoglobin 13.5 13.5 - 16.5 GM/DL Hematocrit 40.6 40 - 50 % MCV 90.2 80 - 100 FL MCH 30.0 26 - 34 PG MCHC 33.3 32.0 - 36.0 G/DL RDW 13.5 11 - 15 % Platelet Count 210 150 - 400 K/UL MPV 7.2 7 - 11 FL Neutrophils 92 (H) 41 - 77 % Lymphocytes 3 (L) 24 - 44 % Monocytes 5 4 - 12 % Eosinophils 0 0 - 5 % Basophils 0 0 - 2 % Absolute Neutrophil Count 21.10 (H) 1.8 - 7.0 K/UL Absolute Lymph Count 0.70 (L) 1.0 - 4.8 K/UL Absolute Monocyte Count 1.10 (H) 0 - 0.80 K/UL Absolute Eosinophil Count 0.00 0 - 0.45 K/UL Absolute Basophil Count 0.00 0 - 0.20 K/UL Specimen Performing Laboratory Blood [facility] [address] [place] [id number] * COMPREHENSIVE METABOLIC PANEL (01/26/2018 1:05 AM) Component Value Ref Range Sodium 132 (L) 137 - 147 MMOL/L Potassium 3.8 3.5 - 5.1 MMOL/L Chloride 97 (L) 98 - 110 MMOL/L Glucose 107 (H) 70 - 100 MG/DL Blood Urea Nitrogen 22 7 - 25 MG/DL Creatinine 0.95 0.4 - 1.24 MG/DL Calcium 9.6 8.5 - 10.6 MG/DL Total Protein 7.6 6.0 - 8.0 G/DL Total Bilirubin 0.6 0.3 - 1.2 MG/DL Albumin 4.0 3.5 - 5.0 G/DL Alk Phosphatase 108 25 - 110 U/L AST (SGOT) 12 7 - 40 U/L CO2 23 21 - 30 MMOL/L ALT (SGPT) 8 7 - 56 U/L Anion Gap 12 3 - 12 eGFR Non >60 >60 [...] questions. Specimen Performing Laboratory Blood MAIN LAB [address] [place] [address] * PHOSPHORUS (01/26/2018 1:05 AM) Component Value Ref Range Phosphorus 3.2 2.0 - 4.0 MG/DL Specimen Performing Laboratory Blood [facility] [address] [place] [address] * MAGNESIUM (01/26/2018 1:05 AM) Component Value Ref Range Magnesium 1.9 1.6 - 2.6 mg/dL Specimen Performing Laboratory [facility] [address] [place] [address] * BLOOD GASES, PERIPHERAL VENOUS (01/25/2018 6:20 PM) Component Value Ref Range pH-Venous 7.37 7.30 - 7.40 PCO2-Venous 41 36 - 50 MMHG PO2-Venous 58 (H) 33 - 48 MMHG Base Deficit-Venous 1.4 MMOL/L O2 Sat-Venous 87.3 (H) 55 - 71 % Xcejwgteahj-SLD-Ubn 23.0 MMOL/L Specimen Performing Laboratory Blood, venous - Blood [facility] [address] [place] [address] * POC BLOOD GAS ARTERIAL (01/25/2018 3:14 PM) Component Value Ref Range PH-ART-POC 7.47 (H) 7.35 - 7.45 NTL1-CMX-AYW 29 (L) 35 - 45 MMHG PO2-ART-POC 62 (L) 80 - 100 MMHG Base Def-ART-POC 3.0 MMOL/L O2 Sat-ART-POC 93.0 (L) 95 - 99 % Kqqjzurnhdy-TBQ-RIG 20.6 (L) 21 - 28 MMOL/L Specimen Performing Laboratory [facility] [address] [place] [address] * ABDOMEN AP ONLY (01/25/2018 10:39 AM) Specimen Performing Laboratory [facility] RAD RESULTS Impressions IMPRESSION: Enteric feeding tube placement as described. Finalized by Clement Bentley M.D. on 01/25/2018 11:20 AM. Dictated by Clement Bentley M.D. on 01/25/2018 11:19 AM. Narrative Portable AP upright abdomen Feeding tube placement There is a enteric feeding tube which is coiled in the gastric fundus with its tip in the apex of the fundus. Lung bases appear clear and the heart is normal in size. Procedure Note Interface, Radiant Results - 01/25/2018 11:23 AM CDT Portable AP upright abdomen Feeding tube placement There is a enteric feeding tube which is coiled in the gastric fundus with its tip in the apex of the fundus. Lung bases appear clear and the heart is normal in size. IMPRESSION IMPRESSION: Enteric feeding tube placement as described. Finalized by Clement Bentley M.D. on 01/25/2018 11:20 AM. Dictated by Clement Bentley M.D. on 01/25/2018 11:19 AM. * COMPREHENSIVE METABOLIC PANEL (01/25/2018 3:16 AM) Component Value Ref Range Sodium 132 (L) 137 - 147 MMOL/L Potassium 4.6 3.5 - 5.1 MMOL/L Chloride 99 98 - 110 MMOL/L Glucose 100 70 - 100 MG/DL Blood Urea Nitrogen 18 7 - 25 MG/DL Creatinine 0.99 0.4 - 1.24 MG/DL Calcium 9.7 8.5 - 10.6 MG/DL Total Protein 7.1 6.0 - 8.0 G/DL Total Bilirubin 0.6 0.3 - 1.2 MG/DL Albumin 3.8 3.5 - 5.0 G/DL Alk Phosphatase 111 (H) 25 - 110 U/L AST (SGOT) 12 7 - 40 U/L CO2 23 21 - 30 MMOL/L ALT (SGPT) 8 7 - 56 U/L Anion Gap 10 3 - 12 eGFR Non >60 >60 [...] Specimen Performing Laboratory Blood MAIN LAB [address] [place] [address] * CBC AND DIFF (01/25/2018 3:16 AM) Component Value Ref Range White Blood Cells 19.4 (H) 4.5 - 11.0 K/UL RBC 4.36 (L) 4.4 - 5.5 M/UL Hemoglobin 13.1 (L) 13.5 - 16.5 GM/DL Hematocrit 39.5 (L) 40 - 50 % MCV 90.5 80 - 100 FL MCH 30.0 26 - 34 PG MCHC 33.1 32.0 - 36.0 G/DL RDW 13.7 11 - 15 % Platelet Count 184 150 - 400 K/UL MPV 7.6 7 - 11 FL Neutrophils 93 (H) 41 - 77 % Lymphocytes 3 (L) 24 - 44 % Monocytes 4 4 - 12 % Eosinophils 0 0 - 5 % Basophils 0 0 - 2 % Absolute Neutrophil Count 18.00 (H) 1.8 - 7.0 K/UL Absolute Lymph Count 0.60 (L) 1.0 - 4.8 K/UL Absolute Monocyte Count 0.90 (H) 0 - 0.80 K/UL Absolute Eosinophil Count 0.00 0 - 0.45 K/UL Absolute Basophil Count 0.00 0 - 0.20 K/UL Specimen Performing Laboratory Blood MAIN LAB [address] [place] [address] * PHOSPHORUS (01/25/2018 3:16 AM) Component Value Ref Range Phosphorus 5.6 (H) 2.0 - 4.0 MG/DL Specimen Performing Laboratory Blood MAIN LAB [address] [place] [address] * MAGNESIUM (01/25/2018 3:16 AM) Component Value Ref Range Magnesium 2.0 1.6 - 2.6 mg/dL Specimen Performing Laboratory [facility] [address] [place] [address] * SURGICAL PATHOLOGY (01/24/2018 6:05 PM) Component Value Ref Range PATHOLOGY REPORT [facility] [email or web address] Department of Pathology and Laboratory Medicine [address] [place] [address] Surgical Pathology Office:[phone]:[phone] SURGICAL PATHOLOGY REPORT NAME: KELVIN ZALDIVAR SURG PATH #: [id number] MR #: [id number] SPECIMEN CLASS: SR BILLING #: [id number] ALT ID #:LOCATION: [id number] DATE OF PROCEDURE: [...] for NUT performed on block A2 at [facility] is negative in the tumor cells. ALTAGRACIA [...] immunostain for NUT is being performed at [employer] and be reported in an addendum PD-L1: Results: % Positive: 20% PD-L1 test name: DAKO PD-L1 IHC 22C3 pharmDX Cell types evaluated: Tumor cells Pursuant to the [employer] Program at the [facility] Pathology Department, selected slides from [...] cm aggregate of cylindrical and irregular, pale karimi soft tissue fragments. The specimen is entirely submitted in cassette A1. (lmt) 01/24/2018 If immunohistochemical stains and/or in situ hybridization are cited in this report, the performance characteristics were determined by the Department of Pathology and Laboratory Medicine of the [facility] ([employer]) in compliance with [...] of Pathology and Laboratory Medicine of the [facility].It has not been cleared or approved by the FDA.The FDA has determined that such clearance or approval is not necessary. Specimen Performing Laboratory [facility] LAB RESULTS * OSMOLALITY-URINE RANDOM (01/24/2018 6:00 PM) Component Value Ref Range Osmolality-Urine 847 50 - 1,400 MOS/KG Specimen Performing Laboratory Urine [facility] [address] [place] [address] * CREATININE-URINE RANDOM (01/24/2018 6:00 PM) Component Value Ref Range Creatinine, Random 222 MG/DL Specimen Performing Laboratory Urine [facility] [address] [place] [address] * SODIUM-URINE RANDOM (01/24/2018 6:00 PM) Component Value Ref Range Sodium, Random 146 MMOL/L Specimen Performing Laboratory Urine [facility] [address] [place] [address] * URINALYSIS, MICROSCOPIC (01/24/2018 6:00 PM) Component Value Ref Range WBCs,UA 0-2 0 - 2 /HPF RBCs,UA 0-2 0 - 3 /HPF MucousUA TRACE Specimen Performing Laboratory Urine MAIN LAB [address] [place] [address] * URINALYSIS DIPSTICK (01/24/2018 6:00 PM) Component Value Ref Range Color,UA YELLOW Turbidity,UA 1+ (A) CLEAR-CLEAR Specific [place]-Urine 1.029 1.003 - 1.035 pH,UA 5.0 5.0 - 8.0 Protein,UA NEG NEG-NEG Glucose,UA NEG NEG-NEG Ketones,UA 1+ (A) NEG-NEG Bilirubin,UA NEG NEG-NEG Blood,UA NEG NEG-NEG Urobilinogen,UA NORMAL NORM-NORMAL Nitrite,UA NEG NEG-NEG Leukocytes,UA NEG NEG-NEG Urine Ascorbic Acid, UA NEG NEG-NEG Specimen Performing Laboratory Urine [facility] [address] [place] [address] * IR PERCUTANEOUS BIOPSY (01/24/2018 5:51 PM) [...] Specimen Performing Laboratory Blood MAIN [facility] [address] [place] [address] * PHOSPHORUS (01/24/2018 5:30 PM) Component Value Ref Range Phosphorus 3.9 2.0 - 4.0 MG/DL Specimen Performing Laboratory Blood MAIN LAB [address] [place] [address] * MAGNESIUM (01/24/2018 5:30 PM) Component Value Ref Range Magnesium 1.9 1.6 - 2.6 mg/dL Specimen Performing Laboratory Blood MAIN [facility] [address] [place] [address] * BASIC METABOLIC PANEL (01/24/2018 5:30 PM) [...] Specimen Performing Laboratory Blood [facility]IN [facility] [address] [place] [address] * CBC (01/24/2018 5:30 PM) Component Value Ref Range White Blood Cells 20.7 (H) 4.5 - 11.0 K/UL RBC 4.45 4.4 - 5.5 M/UL Hemoglobin 13.6 13.5 - 16.5 GM/DL Hematocrit 39.9 (L) 40 - 50 % MCV 89.7 80 - 100 FL MCH 30.5 26 - 34 PG MCHC 34.0 32.0 - 36.0 G/DL RDW 13.6 11 - 15 % Platelet Count 190 150 - 400 K/UL MPV 7.3 7 - 11 FL Specimen Performing Laboratory Blood MAIN LAB [address] [place] [address] * FLOW CYTOMETRY (01/24/2018 5:00 PM) Component Value Ref Range PATHOLOGY REPORT [facility] [email or web address] Marjorie Tobar MD, Director of Clinical Laboratory Seven Reyes MD, Director of Flow Cytometry Laboratory Department of Pathology and Laboratory Medicine [address] [place] [address] Surgical Pathology Office:[phone]:[phone] FLOW CYTOMETRY REPORT NAME: KELVIN ZALDIVAR SURG PATH #: [id number] MR #: [id number] SPECIMEN CLASS: LC BILLING #: [id number] ALT ID #:LOCATION: [facility] DATE OF PROCEDURE: 01/24/2018 AGE:42 SEX: M DATE RECEIVED: 01/25/2018 : 1975TIME RECEIVED:08:52 PHYSICIAN: LEXI VARELA DATE OF REPORT: 01/25/2018 COPY TO: DO SARITHA SILVA,[facility] [place] DATE OF PRINTIN01/25/2018 Material Received: A: Right [...] Markers (% Positive Cells): CD19=8; CD20=8; CD23=0; [place]=4; Lambda=4; [place]:Lambda ratio=1.0 T Cell Associated Markers (% Positive Cells): CD2=82; CD3=78; CD4=29; CD5=70; CD7=78; CD8=46 CD4:CD8 ratio=0.6 Miscellaneous Markers (% Positive Cells): CD10=1; CD34=0; CD38=64; ZG22=446; CD56=7; FMC7=0; GT537=8 Cell Viability (%): 92 Number of Cells Analyzed:24,863 Total Number of Markers: 23 Summary of Marker Combinations: [place]/Lambda/5/10/19/45/38/20;FMC7/23/5/34/200 /45/19;2/7/5/3/4/45/56/8 This test was developed and its performance characteristics determined by the [facility] Flow Cytometry Laboratory.It has not been cleared or approved by the U.S. Food and Drug Administration (FDA).The FDA has determined that such clearance or approval is not necessary. Specimen Performing Laboratory LAB RESULTS * LEUKEMIA/LYMPHOMA PANEL FLUID/TISSUE (01/24/2018 5:00 PM) Component Value Ref Range Leuk/Lymph Interpretation SEE PATHOLOGY REPORT Specimen/LLM RIGHT NECK MASS BIOPSY Specimen Performing Laboratory MAIN LAB [address] [place] [address] * CULTURE-TB (AFB) (01/24/2018 5:00 PM) Component Value Ref Range Battery Name AFB CULTURE Specimen Description BIOPSY R neck mass Special Requests NONE Culture NO GROWTH OF MYCOBACTERIA AT 6 WEEKS Report Status FINAL 03/17/2018 Specimen Performing Laboratory Biopsy MAIN LAB [address] [place] [address] * CULTURE-FUNGAL,OTHER (01/24/2018 5:00 PM) Component Value Ref Range Battery Name FUNGUS CULTURE Specimen Description BIOPSY R neck mass Special Requests NONE Culture NO GROWTH OF FUNGUS AT 4 WEEKS Report Status FINAL 02/24/2018 Specimen Performing Laboratory Biopsy MAIN LAB [address] [place] [address] * CULTURE-ANAEROBIC (01/24/2018 5:00 PM) Component Value Ref Range Battery Name ANAEROBE CULTURE Specimen Description BIOPSY R neck mass Special Requests NONE Culture NO ANAEROBES ISOLATED Report Status FINAL 01/29/2018 Specimen Performing Laboratory Biopsy MAIN LAB [address] [place] [address] * CULTURE-WOUND/TISSUE/FLUID(AEROBIC ONLY)W/SENSITIVITY (01/24/2018 5:00 PM) Component Value Ref Range Battery Name ROUTINE CULTURE Specimen Description BIOPSY R neck mass Special Requests NONE Culture NO GROWTH 5 DAYS Report Status FINAL 01/29/2018 Specimen Performing Laboratory Biopsy [facility] [address] [place] [address] * CHEST 2 VIEWS (01/24/2018 2:38 AM) [...] 15.0 NG/ML Specimen Performing Laboratory MAIN LAB [address] [place] [address] * LACTIC ACID(LACTATE) (01/24/2018 2:16 AM) Component Value Ref Range Lactic Acid 1.2 0.5 - 2.0 MMOL/L Specimen Performing Laboratory Blood MAIN LAB [address] [place] [address] * PROCALCITONIN (01/24/2018 2:16 AM) Component Value Ref Range Procalcitonin 0.06 <0.10 NG/ML Specimen Performing Laboratory Blood MAIN LAB [address] [place] [address] * CULTURE-BLOOD W/SENSITIVITY (01/24/2018 2:16 AM) Component Value Ref Range Battery Name BLOOD CULTURE Specimen Description BLOOD LEFT HAND Special Requests NONE Culture NO GROWTH 5 DAYS Report Status FINAL 01/30/2018 Specimen Performing Laboratory Blood [facility] [address] [place] [address] * CULTURE-BLOOD W/SENSITIVITY (01/24/2018 2:00 AM) Component Value Ref Range Battery Name BLOOD CULTURE Specimen Description BLOOD LEFT FA Special Requests NONE Culture NO GROWTH 5 DAYS Report Status FINAL 01/30/2018 Specimen Performing Laboratory Blood [facility] [address] [place] [address] * LDH-LACTATE DEHYDROGENASE (01/24/2018 12:54 AM) Component Value Ref Range Lactate Dehydrogenase 367 (H) 100 - 210 U/L Specimen Performing Laboratory MAIN LAB [address] [place] [address] * BETA-HCG (01/24/2018 12:54 AM) Component Value Ref Range Beta-HCG,Serum 1 <5 U/L Specimen Performing Laboratory MAIN LAB [address] [place] [address] * C REACTIVE PROTEIN (CRP) (01/24/2018 12:54 AM) Component Value Ref Range C-Reactive Protein 2.41 (H) <1.0 MG/DL Specimen Performing Laboratory MAIN LAB [address] [place] [address] * COMPREHENSIVE METABOLIC PANEL (01/24/2018 12:54 AM) Component Value Ref Range Sodium 133 (L) 137 - 147 MMOL/L Potassium 4.1 3.5 - 5.1 MMOL/L Chloride 101 98 - 110 MMOL/L Glucose 101 (H) 70 - 100 MG/DL Blood Urea Nitrogen 13 7 - 25 MG/DL Creatinine 0.99 0.4 - 1.24 MG/DL Calcium 9.7 8.5 - 10.6 MG/DL Total Protein 7.6 6.0 - 8.0 G/DL Total Bilirubin 0.8 0.3 - 1.2 MG/DL Albumin 4.1 3.5 - 5.0 G/DL Alk Phosphatase 107 25 - 110 U/L AST (SGOT) 15 7 - 40 U/L CO2 21 21 - 30 MMOL/L ALT (SGPT) 10 7 - 56 U/L Anion Gap 11 3 - 12 eGFR Non >60 >60 [...] Specimen Performing Laboratory Blood MAIN LAB [address] [place] [address] * PROTIME INR (PT) (01/24/2018 12:54 AM) Component Value Ref Range INR 1.2 0.8 - 1.2 Specimen Performing Laboratory Blood MAIN LAB [address] [place] [address] * CBC AND DIFF (01/24/2018 12:54 AM) Component Value Ref Range White Blood Cells 18.9 (H) 4.5 - 11.0 K/UL RBC 4.80 4.4 - 5.5 M/UL Hemoglobin 14.4 13.5 - 16.5 GM/DL Hematocrit 42.4 40 - 50 % MCV 88.4 80 - 100 FL MCH 30.0 26 - 34 PG MCHC 33.9 32.0 - 36.0 G/DL RDW 13.9 11 - 15 % Platelet Count 206 150 - 400 K/UL MPV 7.2 7 - 11 FL Neutrophils 89 (H) 41 - 77 % Lymphocytes 5 (L) 24 - 44 % Monocytes 5 4 - 12 % Eosinophils 1 0 - 5 % Basophils 0 0 - 2 % Absolute Neutrophil Count 16.80 (H) 1.8 - 7.0 K/UL Absolute Lymph Count 1.00 1.0 - 4.8 K/UL Absolute Monocyte Count 0.90 (H) 0 - 0.80 K/UL Absolute Eosinophil Count 0.20 0 - 0.45 K/UL Absolute Basophil Count 0.00 0 - 0.20 K/UL Specimen Performing Laboratory Blood [facility] [address] [place] [address] * CT MISC EXTERNAL IMAGING (01/23/2018 6:50 PM) Narrative This order has been auto finalized and does not contain a result. * CT MISC EXTERNAL IMAGING (01/23/2018 6:35 PM) Narrative This order has been auto finalized and does not contain a result. * CT MISC EXTERNAL IMAGING (01/23/2018 1:30 PM) Narrative This order has been auto finalized and does not contain a result. * CT MISC EXTERNAL IMAGING (01/23/2018 1:15 PM) Narrative This order has been auto finalized and does not contain a result. in this encounter Visit Diagnoses Diagnosis Neck mass - Primary Swelling, mass, or lump in head and neck Diagnosis unknown Other unknown and unspecified cause of morbidity or mortality Carcinoma of unknown origin (HCC) Other malignant neoplasm without specification of site Anxiety Anxiety state, unspecified Airway compromise Other diseases of respiratory system, not elsewhere classified SVC (superior vena cava obstruction) Compression of vein Acute on chronic respiratory failure with hypoxemia (HCC) On mechanically assisted ventilation (HCC) Atelectasis, bilateral Pulmonary collapse Tobacco abuse Tobacco use disorder Acute deep vein thrombosis (DVT) of both upper extremities, unspecified vein ( HCC) Brain metastasis (HCC) Secondary malignant neoplasm of brain and spinal cord Leukocytosis Leukocytosis, unspecified Hyponatremia Hyposmolality and/or hyponatremia Acute and chronic respiratory failure with hypoxia (HCC) Acute and chronic respiratory failure Admitting Diagnoses Diagnosis Neck/chest mass Neck mass Neck mass Swelling, mass, or lump in head and neck Diagnosis unknown Other unknown and unspecified cause of morbidity or mortality Administered Medications Medication Order MAR Action Action Date Dose Rate Site acetaminophen (TYLENOL) oral solution Given 02/11/2018 650 mg 650 mg 18:36 CDT 650 mg, Oral, EVERY 6 HOURS PRN, Starting Sat02/11/18 at 1809, Until Sat02/14/18 at 1427, Pain non-opioid: may be used alone or in combination with opioid analgesia, Temp > 38 C, TOTAL ACETAMINOPHEN DOSE NOT TO EXCEED 4GM DAILY acetylcysteine (MUCOMYST) 200 mg/mL (20 Given 02/06/2018 3 mL %) nebulizer solution 3 mL 02:50 CDT 3 mL, Inhalation, RT EVERY 4 HOURS PRN, Starting Jessie 02/06/18 at 0212, Until Jessie 02/06/18 at 1014, RT PROTOCOL, When administered by RT, will be per RT policy. Cirn=953ls/ml acetylcysteine (MUCOMYST) 200 mg/mL (20 Given 02/06/2018 3 mL %) nebulizer solution 3 mL 12:09 CDT 3 mL, Inhalation, RT FOUR TIMES DAILY AND PRN, First dose on Jessie 02/06/18 at 1200, Until Discontinued, When administered by RT, will be per RT policy. Tzmx=668iq/ml Given 02/06/2018 3 mL 16:52 CDT Given 02/06/2018 3 mL 19:56 CDT albuterol 0.5% (PROVENTIL; VENTOLIN) Given 01/25/2018 2.5 mg nebulizer solution 2.5 mg 22:50 CDT 2.5 mg, Inhalation, RT ONCE, 1 dose, Starting 01/25/18 at 2347, Until 01/25/18 at 2250, RT PROTOCOL, When administered by RT, will be per RT policy. albuterol 0.5% (PROVENTIL; VENTOLIN) Given 01/27/2018 2.5 mg nebulizer solution 2.5 mg 03:23 CDT 2.5 mg, Inhalation, RT EVERY 4 HOURS AND PRN, First dose on 01/27/18 at 0430, Until Discontinued, ADMINISTERED BY RT Given 01/27/2018 2.5 mg 04:38 CDT albuterol 0.5% (PROVENTIL; VENTOLIN) Given 01/28/2018 2.5 mg nebulizer solution 2.5 mg 20:29 CDT 2.5 mg, Inhalation, RT EVERY 6 HOURS PRN, Starting 01/27/18 at 1215, Until Jessie 02/06/18 at 1049, RT PROTOCOL, ADMINISTERED BY RT Given 02/06/2018 2.5 mg 02:49 CDT Given 02/06/2018 2.5 mg 04:15 CDT albuterol 0.5% (PROVENTIL; VENTOLIN) Given 02/10/2018 2.5 mg nebulizer solution 2.5 mg 10:25 CDT 2.5 mg, Inhalation, RT FOUR TIMES DAILY AND PRN, First dose on Jessie 02/06/18 at 1200, Until Discontinued, ADMINISTERED BY RT Given 02/10/2018 2.5 mg 13:00 CDT Given 02/10/2018 2.5 mg 16:08 CDT albuterol 0.5% (PROVENTIL; VENTOLIN) Given 02/14/2018 2.5 mg nebulizer solution 2.5 mg 10:44 CDT 2.5 mg, Inhalation, RT FOUR TIMES DAILY PRN, Starting 02/10/18 at 1615, Until Sat02/14/18 at 1427, RT PROTOCOL, ADMINISTERED BY RT ALBUTEROL SULFATE 2.5 MG/0.5 ML IN NEBU (Cabinet Override) NOW, 1 dose, 01/27/18 at 0315, Created by cabinet override amoxicillin/K clavulanate (AUGMENTIN) Given 02/11/2018 875 mg tablet 875 mg 09:09 CDT 875 mg, Per G Tube, TWICE DAILY WITH MEALS, 4 doses, First dose on 02/10/18 at 1700, Last dose on Sat02/12/18 at 0800, NURSING: Please educate patient and document: Give with food. Given 02/11/2018 875 mg 18:37 CDT Given 02/12/2018 875 mg 08:35 CDT barium sulfate 40 % (VARIBAR HONEY) oral Given 02/10/2018 10 mL suspension 10 mL 11:50 CDT 10 mL, Oral, ONCE, 1 dose, 02/10/18 at 1215, GI Procedure Area Only barium sulfate 40 % (VARIBAR NECTAR) Given 02/10/2018 10 mL oral suspension 10 mL 11:50 CDT 10 mL, Oral, ONCE, 1 dose, 02/10/18 at 1215, GI Procedure Area Only barium sulfate 40 % (VARIBAR PUDDING) Given 02/10/2018 10 mL oral paste 10 mL 11:50 CDT 10 mL, Oral, ONCE, 1 dose, 02/10/18 at 1215, GI Procedure Area Only barium sulfate 40 % (VARIBAR THIN Given 02/10/2018 10 mL LIQUID) oral powder for suspension 10 mL 11:50 CDT 10 mL, Oral, ONCE, 1 dose, 02/10/18 at 1215, Mixing Instructions: 1. Gently shake the barium sulfate to loosen the powder. 2. Remove Cap. Add water to the 40% (w/v) line and replace the cap. 3. Invert bottle and tap with fingers to mix the powder into the water. 4. Shake vigorously for 30 seconds. Let stand for 5 minutes. 5. Suspension has hydrated and settled. Re-fill with water to the 40% line and replace cap. 6. Re-shake thoroughly. Product is now ready for use. bisacodyl (DULCOLAX) rectal suppository Given 01/31/2018 10 mg 10 mg 15:41 CDT 10 mg, Rectal, DAILY, First dose on Sat01/31/18 at 0900, Until Discontinued, Hold for loose stools Given 02/01/2018 10 mg 08:05 CDT ceFAZolin (ANCEF) IVP Given 02/03/2018 2 g INTRA-PROCEDURE MED, Starting Sat02/03/18 09:22 CDT at 0922, Until Discontinued CISplatin (PLATINOL) 167.2 mg in sodium Given - New 02/03/2018 167.2 mg 417.2 mL/hr chloride 0.9% (NS) 417.2 mL IVPB Bag 15:25 CDT 167.2 mg (80 mg/m2 2.09 m2 Treatment plan recorded BSA), Intravenous, 417.2 mL, Administer over 1 Hours, ONCE, 1 dose, Sat02/03/18 at 1400, Administer prior to Etoposide. NURSING: To be administered by Chemotherapy Competency-validated nurse. NOTE: This is a HIGH ALERT Medication. SPECIAL TUBING REQUIRED clonazePAM (KLONOPIN) tablet 0.25 mg Given 02/12/2018 0.25 mg 0.25 mg, Oral, DAILY, First dose on Sat 08:36 CDT 02/11/18 at 1200, Until Discontinued Given 02/13/2018 0.25 mg 09:56 CDT Given 02/14/2018 0.25 mg 09:07 CDT clonazePAM (KLONOPIN) tablet 0.5 mg Given 02/11/2018 0.5 mg 0.5 mg, Oral, AT BEDTIME DAILY, First 21:37 CDT dose on Sat02/11/18 at 2100, Until Discontinued dexmedetomidine (PRECEDEX) 400 mcg in Given - New 01/25/2018 0.7 13.8 mL/hr sodium chloride 0.9% (NS) 100 mL IV Bag 01:31 CDT mcg/kg/hr infusion 0.2-1 mcg/kg/hr 79.1 kg (3.955-19.775 mL/hr, rounded to 4-19.8 mL/hr) 100 mL, at 4-19.8 mL/hr, Intravenous, TITRATE DIRECTED , Starting Sat01/24/18 at 1630, Until 01/25/18 at 1038, -Initiate at 0.2 mcg/kg/hr and maintain for 30 minutes -Titrate to keep: RASS of 0 to -2 a.) Titrate infusion in increments of 0.1 mcg/kg/hour at 5 minute intervals until goal sedation level achieved or maintenance exceeds 1.0 mcg/kg/hr b.) If HR < 60 or SBP < 90 mmHg hold for 10 minutes then restart at dose reduced by 0.3 mcg/kg/min c.) Notify physician for persistent hypotension (SBP < 90 mmHg) or bradycardia (HR < 60) over 15 minutes d.) For breakthrough agitation NOTIFY PHYSICIAN and consider bolus of 1 mcg/kg over 20 min if HR and BP are acceptable. e.) Notify physician if maintenance exceeds 1 mcg/kg/hr -Taper agent continuously to lowest effective dose to achieve desired level of sedation keeping patient calm and able to participate in care. Dose/Rate Change 01/25/2018 0.4 7.9 mL/hr 08:50 CDT mcg/kg/hr Dose/Rate Change 01/25/2018 0.2 4 mL/hr 10:15 CDT mcg/kg/hr enoxaparin (LOVENOX) syringe 40 mg Given 01/24/2018 40 mg Abdominal 40 mg, Subcutaneous, DAILY, First dose 02:52 CDT Tissue on Sat01/24/18 at 0200, Until Discontinued, For patients undergoing surgery: Consult physician in advance -- enoxaparin is an anticoagulant and may need to be held for 12hr prior to surgery or invasive procedures. NOTE: This is a HIGH ALERT Medication. enoxaparin (LOVENOX) syringe 40 mg Given 02/01/2018 40 mg Abdomen:RLQ 40 mg, Subcutaneous, DAILY, First dose 20:28 CDT on 01/25/18 at 2100, Until Discontinued, For patients undergoing surgery: Consult physician in advance -- enoxaparin is an anticoagulant and may need to be held for 12hr prior to surgery or invasive procedures. NOTE: This is a HIGH ALERT Medication. Given 02/02/2018 40 mg Abdominal 21:21 CDT Tissue Given 02/03/2018 40 mg Abdominal 21:33 CDT Tissue enoxaparin (LOVENOX) syringe 40 mg Given 02/05/2018 40 mg Abdominal 40 mg, Subcutaneous, DAILY, First dose 21:22 CDT Tissue on 02/05/18 at 2100, Until Discontinued, For patients undergoing surgery: Consult physician in advance -- enoxaparin is an anticoagulant and may need to be held for 12hr prior to surgery or invasive procedures. NOTE: This is a HIGH ALERT Medication. enoxaparin (LOVENOX) syringe 80 mg Given 02/13/2018 80 mg Abdominal 80 mg (rounded from 79.6 mg=1 mg/kg 09:56 CDT Tissue 79.6 kg), Subcutaneous, TWICE DAILY, First dose on Jessie 02/06/18 at 1630, Until Discontinued, For patients undergoing surgery: Consult physician in advance -- enoxaparin is an anticoagulant and may need to be held for 12hr prior to surgery or invasive procedures. NOTE: This is a HIGH ALERT Medication. Given 02/13/2018 80 mg Abdominal 20:17 CDT Tissue Given 02/14/2018 80 mg Arm, Left 09:05 CDT etoposide (VEPESID) 209 mg in sodium Given - New 02/03/2018 209 mg 610.5 mL/hr chloride 0.9% (NS) 610.45 mL IVPB Bag 16:32 CDT 209 mg (100 mg/m2 2.09 m2 Treatment plan recorded BSA), Intravenous, 610.45 mL, Administer over 1 Hours, ONCE, 1 dose, 02/03/18 at 1500, Administer after Cisplatin. NURSING: To be administered by Chemotherapy Competency-validated nurse. NOTE: This is a HIGH ALERT Medication. SPECIAL TUBING REQUIRED etoposide (VEPESID) 209 mg in sodium Given - New 02/04/2018 209 mg 610.5 mL/hr chloride 0.9% (NS) 610.45 mL IVPB Bag 16:21 CDT 209 mg (100 mg/m2 2.09 m2 Treatment plan recorded BSA), Intravenous, 610.45 mL, Administer over 1 Hours, ONCE, 1 dose, Sat02/04/18 at 1500, NURSING: To be administered by Chemotherapy Competency-validated nurse. NOTE: This is a HIGH ALERT Medication. SPECIAL TUBING REQUIRED etoposide (VEPESID) 209 mg in sodium Given - New 02/05/2018 209 mg 610.5 mL/hr chloride 0.9% (NS) 610.45 mL IVPB Bag 14:40 CDT 209 mg (100 mg/m2 2.09 m2 Treatment plan recorded BSA), Intravenous, 610.45 mL, Administer over 1 Hours, ONCE, 1 dose, Sat02/05/18 at 1500, NURSING: To be administered by Chemotherapy Competency-validated nurse. NOTE: This is a HIGH ALERT Medication. SPECIAL TUBING REQUIRED fentaNYL citrate PF (SUBLIMAZE) Given 01/25/2018 50 mcg injection 25-50 mcg 19:02 CDT 25-50 mcg, Intravenous, EVERY 2 HOURS PRN, Starting Sat01/24/18 at 1603, Until Sat01/26/18 at 0727, Pain Injectable Given 01/25/2018 50 mcg 23:39 CDT Given 01/26/2018 50 mcg 06:13 CDT fentaNYL citrate PF (SUBLIMAZE) Given 02/04/2018 25 mcg injection 25-50 mcg 12:09 CDT 25-50 mcg, Intravenous, EVERY 3 HOURS PRN, Starting Sat01/26/18 at 0730, Until Sat02/05/18 at 1649, Pain Injectable Given 02/05/2018 25 mcg 13:04 CDT Given 02/05/2018 25 mcg 14:16 CDT fentaNYL citrate PF (SUBLIMAZE) Given 02/03/2018 50 mcg injection 25-50 mcg 08:23 CDT 25-50 mcg, Intravenous, ONCE, 1 dose, Sat02/03/18 at 0745, Administer prior to procedure for anxiolytic fentaNYL citrate PF (SUBLIMAZE) Given 02/05/2018 50 mcg injection 25-50 mcg 08:17 CDT 25-50 mcg, Intravenous, ONCE, 1 dose, 02/05/18 at 0730, Pre-Procedure (IR) fentaNYL citrate PF (SUBLIMAZE) Given 02/11/2018 50 mcg injection 25-50 mcg 08:04 CDT 25-50 mcg, Intravenous, EVERY 1 HOUR PRN, Starting Sat02/05/18 at 1700, Until Sat02/14/18 at 1427, Pain Injectable Given 02/12/2018 50 mcg 08:57 CDT Given 02/12/2018 50 mcg 15:55 CDT fentaNYL citrate PF (SUBLIMAZE) Given 02/10/2018 75 mcg injection 75 mcg 08:04 CDT 75 mcg, Intravenous, DAILY PRN, Starting Sat02/07/18 at 0917, Until Sat02/14/18 at 1427, Other..., Prior to radiation therapy Given 02/13/2018 75 mcg 07:52 CDT Given 02/14/2018 75 mcg 07:44 CDT fentaNYL citrate PF (SUBLIMAZE) Given 02/03/2018 50 mcg injection 08:41 CDT INTRA-PROCEDURE MED, Starting Sat02/03/18 at 0838, Until Discontinued Given 02/03/2018 50 mcg 08:58 CDT Given 02/03/2018 50 mcg 09:11 CDT fentaNYL citrate PF (SUBLIMAZE) Given 02/05/2018 50 mcg injection 08:36 CDT INTRA-PROCEDURE MED, Starting Sat02/05/18 at 0836, Until Sat02/05/18 at 0836 filgrastim-sndz (ZARXIO) inj syringe 300 Given 02/12/2018 300 mcg Abdominal mcg 08:30 CDT Tissue 300 mcg, Subcutaneous, EVERY 24 HOURS, First dose on Sat02/12/18 at 0745, Until Discontinued fosaprepitant (EMEND) 150 mg in sodium Given - New 02/03/2018 150 mg 450 mL/hr chloride 0.9% (NS) 150 mL IVPB Bag 13:50 CDT 150 mg, Intravenous, 150 mL, Administer over 20 Minutes, ONCE, 1 dose, 02/03/18 at 1200, Pre-med for chemotherapy furosemide (LASIX) injection 40 mg Given 02/06/2018 40 mg 40 mg, Intravenous, ONCE, 1 dose, Jessie 02:19 CDT 02/06/18 at 0215, PROTECT FROM LIGHT glucagon (human recombinant) injection Given 02/05/2018 1 mg INTRA-PROCEDURE MED, Starting Sat 08:33 CDT 02/05/18 at 0833, Until Sat02/05/18 at 0833 heparin lock flush PF syringe 500 Units Given 02/14/2018 500 Units 500 Units, Intravenous, ONCE, 1 dose, 10:38 CDT 02/14/18 at 1015, NOTE: This is a HIGH ALERT Medication. iopamidol 300 (ISOVUE-300) injection 20 Given 02/03/2018 20 mL mL 09:45 CDT 20 mL, Intravenous, ONCE, 1 dose, 02/03/18 at 0945, NOTE: This is a HIGH ALERT Medication. iopamidol 300 (ISOVUE-300) injection 50 Given 02/05/2018 50 mL mL 08:45 CDT 50 mL, SEE ADMIN INSTRUCTIONS, ONCE, 1 dose, 02/05/18 at 0845, Gastrostomy NOTE: This is a HIGH ALERT Medication. ipratropium bromide (ATROVENT) 0.02 % Given 01/25/2018 0.5 mg nebulizer solution 0.5 mg 22:50 CDT 0.5 mg, Inhalation, RT ONCE, 1 dose, Starting 01/25/18 at 2347, Until 01/25/18 at 2250, RT PROTOCOL, When administered by RT, will be per RT policy. ipratropium bromide (ATROVENT) 0.02 % Given 01/27/2018 0.5 mg nebulizer solution 0.5 mg 04:38 CDT 0.5 mg, Inhalation, RT EVERY 4 HOURS AND PRN, First dose on 01/27/18 at 0430, Until Discontinued, ADMINISTERED BY RT Given 01/27/2018 0.5 mg 09:10 CDT ipratropium bromide (ATROVENT) 0.02 % Given 02/07/2018 0.5 mg nebulizer solution 0.5 mg 17:09 CDT 0.5 mg, Inhalation, RT EVERY 6 HOURS PRN, Starting 01/27/18 at 1215, Until 02/08/18 at 1431, RT PROTOCOL, ADMINISTERED BY RT Given 02/08/2018 0.5 mg 08:26 CDT Given 02/08/2018 0.5 mg 12:39 CDT ipratropium bromide (ATROVENT) 0.02 % Given 02/10/2018 0.5 mg nebulizer solution 0.5 mg 10:25 CDT 0.5 mg, Inhalation, RT FOUR TIMES DAILY AND PRN, First dose on 02/08/18 at 1600, Until Discontinued, ADMINISTERED BY RT Given 02/10/2018 0.5 mg 13:00 CDT Given 02/10/2018 0.5 mg 16:08 CDT ipratropium bromide (ATROVENT) 0.02 % Given 02/14/2018 0.5 mg nebulizer solution 0.5 mg 10:44 CDT 0.5 mg, Inhalation, RT FOUR TIMES DAILY PRN, Starting Sat02/10/18 at 1615, Until Sat02/14/18 at 1427, RT PROTOCOL, ADMINISTERED BY RT lactated ringers infusion Given - New 01/24/2018 1,000 mL 20 mL/hr 1,000 mL, 1,000 mL, Intravenous, at 20 Bag 13:03 CDT mL/hr, CONTINUOUS, Starting Sat01/24/18 at 1230, Until Sat01/24/18 at 1623, Pre-Op LORazepam (ATIVAN) injection 0.5 mg Given 01/24/2018 0.5 mg 0.5 mg, Intravenous, ONCE PRN, 1 dose, 23:25 CDT Starting Sat01/24/18 at 2203, Until Sat01/24/18 at 2325, Anxiety Injectable, PROTECT FROM LIGHT LORazepam (ATIVAN) injection 0.5 mg Given 01/25/2018 0.5 mg 0.5 mg, Intravenous, ONCE, 1 dose, Sat 04:49 CDT 01/25/18 at 0445, PROTECT FROM LIGHT LORazepam (ATIVAN) injection 0.5 mg Given 01/25/2018 0.5 mg 0.5 mg, Intravenous, EVERY 2 HOURS PRN, 12:51 CDT Starting 01/25/18 at 1145, Until 01/26/18 at 0727, Anxiety Injectable, PROTECT FROM LIGHT Given 01/25/2018 0.5 mg 23:40 CDT LORazepam (ATIVAN) injection 0.5 mg Given 02/01/2018 0.5 mg 0.5 mg, Intravenous, EVERY 4 HOURS PRN, 14:19 CDT Starting 01/26/18 at 0730, Until 02/02/18 at 1140, Anxiety Injectable, PROTECT FROM LIGHT Given 02/02/2018 0.5 mg 02:39 CDT Given 02/02/2018 0.5 mg 08:37 CDT LORazepam (ATIVAN) injection 0.5 mg Given 02/03/2018 0.5 mg 0.5 mg, Intravenous, TWICE DAILY PRN, 13:00 CDT Starting 02/02/18 at 1600, Until Tu02/04/18 at 1523, Anxiety Injectable, PROTECT FROM LIGHT Given 02/03/2018 0.5 mg 22:16 CDT LORazepam (ATIVAN) injection 0.5-1 mg Given 01/25/2018 0.5 mg 0.5-1 mg, Intravenous, EVERY 1 HOUR 10:49 CDT PRN, Starting 01/25/18 at 0844, Until 01/25/18 at 1153, Anxiety Injectable, PROTECT FROM LIGHT LORazepam (ATIVAN) injection 0.5-1 mg Given 02/02/2018 0.5 mg 0.5-1 mg, Intravenous, EVERY 4 HOURS 12:06 CDT PRN, Starting 02/02/18 at 1139, Until 02/02/18 at 1551, Anxiety Injectable, PROTECT FROM LIGHT LORazepam (ATIVAN) injection 0.5-1 mg Given 02/04/2018 1 mg 0.5-1 mg, Intravenous, TWICE DAILY PRN, 15:57 CDT Starting 02/04/18 at 1521, Until Sat02/05/18 at 1010, Anxiety Injectable, PROTECT FROM LIGHT. One dose to be given each day before going for radiation therapy treatment. Given 02/05/2018 0.5 mg 00:27 CDT LORazepam (ATIVAN) injection 0.5-1 mg Given 02/11/2018 1 mg 0.5-1 mg, Intravenous, THREE TIMES DAILY 03:04 CDT PRN, Starting Sat02/05/18 at 1015, Until Sat02/14/18 at 1427, Anxiety Injectable, PROTECT FROM LIGHT. One dose to be given each day before going for radiation therapy treatment. Given 02/11/2018 1 mg 23:43 CDT Given 02/12/2018 1 mg 16:49 CDT LORazepam (ATIVAN) injection 1 mg Given 02/13/2018 1 mg 1 mg, Intravenous, DAILY PRN, Starting 07:52 CDT Sat02/07/18 at 0918, Until Sat02/14/18 at 1427, Other..., Prior to radiation therapy, PROTECT FROM LIGHT Given 02/13/2018 1 mg 22:53 CDT Given 02/14/2018 1 mg 07:45 CDT LORAZEPAM 2 MG/ML KAMERON MENDOZA (Cabinet Override) NOW, 1 dose, 01/25/18 at 0500, Created by cabinet override magnesium sulfate 1 g/D5W 100 mL IVPB Given - New 01/28/2018 1 g 100 mL/hr 1 g, Intravenous, 100 mL, Administer Bag 05:46 CDT over 1 Hours, NEEDED, Starting Sat01/24/18 at 1645, Until Sat02/07/18 at 0741, Other..., magnesium replacement (see Admin Instructions), If urine output < 30 mL/hr or SCr >2 mg/dL, check with physician prior to giving magnesium replacement. - For Serum Magnesium > 2.1 mg/dL, No replacement necessary. - For Serum Magnesium 1.8 - 2.0 mg/dL, give Magnesium Sulfate 2 grams IV over 2 hours. - For Serum Magnesium 1.6 - 1.7 mg/dL, give Magnesium Sulfate 3 grams IV over 3 hours. - For Serum Magnesium 1.3 - 1.5 mg/dL, give Magnesium Sulfate 4 grams IV over 4 hours. - For Serum Magnesium <=1.2 mg/dL, give Magnesium Sulfate 6 grams IV over 6 hours AND notify physician. Recheck serum magnesium level 4 hours after completion of appropriate replacement dose. Repeat this standing order x 1. Notify physician if serum magnesium < 2.1 mg/dL after two replacements. Infuse each 1gm Magnesium sulfate over 1 hour. Each 1 gm delivers 8.1 mEq Magnesium. Given - New Bag 01/30/2018 1 g 100 mL/hr 06:15 CDT Given - New Bag 01/30/2018 1 g 100 mL/hr 07:19 CDT methylnaltrexone (RELISTOR) injection 12 Given 01/31/2018 12 mg Abdominal mg 08:25 CDT Tissue 12 mg, Subcutaneous, ONCE, 1 dose, Sat01/31/18 at 0745, Protect From Light while in vial. methylPREDNISolone (SOLU-MEDROL PF) Given 02/06/2018 62.5 mg injection 62.5 mg 03:56 CDT 62.5 mg, Intravenous, ONCE, 1 dose, Jessie 02/06/18 at 0345 metoclopramide (REGLAN) injection 10 mg Given 02/13/2018 10 mg 10 mg, Intravenous, ONCE, 1 dose, Jessie 16:10 CDT 02/13/18 at 1615 midazolam (VERSED) injection 0.5-1 mg Given 02/03/2018 1 mg 0.5-1 mg, Intravenous, ONCE, 1 dose, Mon 08:25 CDT 02/03/18 at 0745, Administer prior to procedure for anxiolytic midazolam (VERSED) injection 1 mg Given 02/05/2018 1 mg 1 mg, Intravenous, ONCE, 1 dose, Sat 08:15 CDT 02/05/18 at 0730, Pre-Procedure (IR) midazolam (VERSED) injection Given 02/03/2018 1 mg INTRA-PROCEDURE MED, Starting Sat02/03/18 08:45 CDT at 0836, Until Discontinued Given 02/03/2018 1 mg 09:02 CDT Given 02/03/2018 1 mg 09:27 CDT midazolam (VERSED) injection Given 02/05/2018 1 mg INTRA-PROCEDURE MED, Starting Sat 08:39 CDT 02/05/18 at 0839, Until Sat02/05/18 at 0839 morphine injection syringe 2-4 mg Given 02/05/2018 2 mg 2-4 mg, Intravenous, DAILY PRN, 15:39 CDT Starting Sat02/04/18 at 1529, Until Jessie 02/06/18 at 1036, Pain Injectable, To be given once daily before radiation therapy treatment. morphine injection syringe 2-4 mg Given 02/06/2018 4 mg 2-4 mg, Intravenous, DAILY PRN, 15:21 CDT Starting Sat02/06/18 at 1044, Until Sat02/07/18 at 0908, Pain Injectable, To be given once daily before radiation therapy treatment. Given 02/07/2018 4 mg 08:02 CDT morphine injection syringe 4 mg Given 01/24/2018 4 mg 4 mg, Intravenous, EVERY 4 HOURS PRN, 07:46 CDT Starting Sat01/24/18 at 0242, Until Sat01/24/18 at 1654, Pain Injectable Given 01/24/2018 4 mg 11:58 CDT Given 01/24/2018 4 mg 15:30 CDT naloxegol (MOVANTIK) tablet 25 mg Given 01/30/2018 25 mg 25 mg, Oral, ONCE, 1 dose, Jessie 01/30/18 at 11:48 CDT 1100, Should be administered at least 1 hour prior to the first meal of the day or 2 hours after the meal. For patients who are unable to swallow the tablet whole, the tablet can be crushed to a powder, mixed with 4 ounces (120 mL) of water and drunk immediately. The glass should be refilled with 4 ounces (120 mL) of water, stirred and the contents drunk. Consumption of grapefruit or grapefruit juice during treatment with naloxegol should be avoided. naloxegol (MOVANTIK) tablet 25 mg Given 02/08/2018 25 mg 25 mg, Oral, ONCE, 1 dose, 02/08/18 10:38 CDT at 1000, Should be administered at least 1 hour prior to the first meal of the day or 2 hours after the meal. For patients who are unable to swallow the tablet whole, the tablet can be crushed to a powder, mixed with 4 ounces (120 mL) of water and drunk immediately. The glass should be refilled with 4 ounces (120 mL) of water, stirred and the contents drunk. Consumption of grapefruit or grapefruit juice during treatment with naloxegol should be avoided. nicotine (NICODERM CQ STEP 1) 21 mg/day Patch/Topica 02/12/2018 1 patch Arm, Left patch 1 patch l Applied 08:32 CDT 1 patch, Transdermal, Administer over 24 Hours, DAILY, First dose on Sat01/24/18 at 1645, Until Discontinued, If patch causes sleep disturbance, remove it at night. Patch/Topical Applied 02/13/2018 1 patch Arm, Right 09:56 CDT Patch/Topical Applied 02/14/2018 1 patch Arm, Left 09:07 CDT OLANZapine (ZYPREXA) tablet 10 mg Given 02/04/2018 10 mg 10 mg, Per NG tube, DAILY, 4 doses, 07:57 CDT First dose on 02/03/18 at 1200, Last dose on Jessie 02/06/18 at 0900, For prevention of chemotherapy related nausea Given 02/05/2018 10 mg 11:13 CDT Given 02/06/2018 10 mg 08:48 CDT ondansetron (ZOFRAN) 16 mg, Given - New 02/03/2018 237 mL/hr dexamethasone (DECADRON) 12 mg in sodium Bag 13:12 CDT chloride 0.9% (NS) 59.2 mL IVPB 59.2 mL, Intravenous, Administer over 15 Minutes, ONCE, 1 dose, 02/03/18 at 1200, Pre-med for chemotherapy ondansetron (ZOFRAN) 16 mg, Given - New 02/04/2018 235 mL/hr dexamethasone (DECADRON) 8 mg in sodium Bag 15:36 CDT chloride 0.9% (NS) 58.8 mL IVPB 58.8 mL, Intravenous, Administer over 15 Minutes, EVERY 24 HOURS, 3 doses, First dose on Sat02/04/18 at 1430, Last dose on Jessie 02/06/18 at 1430, Prevention of chemotherapy related nausea; use as pre-med on chemotherapy days Given - New Bag 02/05/2018 235 mL/hr 14:15 CDT ondansetron (ZOFRAN) injection 4 mg Given 02/13/2018 4 mg 4 mg, Intravenous, EVERY 6 HOURS PRN, 06:50 CDT Starting 01/25/18 at 1454, Until 02/14/18 at 1427, Nausea/Vomiting Injectable Given 02/13/2018 4 mg 13:50 CDT Given 02/13/2018 4 mg 20:17 CDT ondansetron (ZOFRAN) injection 8 mg Given 01/25/2018 8 mg 8 mg, Intravenous, ONCE, 1 dose, Sat 15:16 CDT 01/25/18 at 1500 oxyCODONE (ROXICODONE) oral solution 10 Given 01/26/2018 10 mg mg 17:25 CDT 10 mg, Feeding Tube, EVERY 3 HOURS PRN, Starting 01/26/18 at 0730, Until 01/27/18 at 0658, Pain PO Given 01/26/2018 10 mg 20:23 CDT Given 01/27/2018 10 mg 02:40 CDT oxyCODONE (ROXICODONE) oral solution Given 01/25/2018 10 mg 5-10 mg 16:10 CDT 5-10 mg, Oral, EVERY 4 HOURS PRN, Starting 01/25/18 at 1320, Until 01/26/18 at 0727, Pain PO Given 01/25/2018 10 mg 21:30 CDT oxyCODONE (ROXICODONE, OXY-IR) tablet Given 02/08/2018 10 mg 5-15 mg 05:24 CDT 5-15 mg, Oral, EVERY 4 HOURS PRN, Starting Sat02/07/18 at 0907, Until 02/09/18 at 1054, Pain PO Given 02/08/2018 5 mg 20:14 CDT Given 02/08/2018 5 mg 21:00 CDT oxyCODONE/acetaminophen (PERCOCET; Given 02/06/2018 2 tablets ENDOCET; ROXICET) 5/325 mg tablet 1-2 20:25 CDT tablet 1-2 tablet, Oral, EVERY 4 HOURS PRN, Starting 01/27/18 at 0651, Until Sat02/07/18 at 0906, Pain PO, TOTAL ACETAMINOPHEN DOSE NOT TO EXCEED 4GM DAILY Given 02/06/2018 2 tablets 23:36 CDT Given 02/07/2018 2 tablets 04:16 CDT pancrelipase 20,000 Units/ sodium bicarbonate 650 mg(#) (KU CLOG DESTROYER) for occluded feeding tube cap 1 capsule 1 capsule, Feeding Tube, NEEDED (DIGITAL INTERN FROM RX), Starting 01/25/18 at 0935, Until Sat02/14/18 at 1427, Other..., Occluded Feeding Tube, 1. Open one KU CLOG DESTROYER CAPSULE (pancrelipase 20,000 units/ sodium bicarbonate 650 mg) and pour contents into mortar cup. 2. Dissolve in 5 - 10 ml sterile water. This will take ~ 1-2 minutes, with stirring required. Some sediment will be present (likely from capsule ingredients). 3. Once dissolved, let solution sit for 1-2 minutes, allowing sediment to fall to bottom of mortar cup. 4. Draw enzyme/bicarbonate solution into oral syringe (avoid sediment as best possible). 5. Instill enzyme solution under light pressure, and use a light "back and forth" motion with plunger to help dislodge the clog. 6. Clamp the tube for 5-15 minutes, and then try to aspirate or flush with warm sterile water. May repeat x 1. Notify physician if tube remains occluded following administration. perflutren lipid microspheres (DEFINITY) Given 02/06/2018 1.5 Diluted injection 1-20 Diluted mL 14:28 CDT mL 1-20 Diluted mL, Intravenous, ONCE, 1 dose, Jessie 02/06/18 at 1430, NOTE: This is a HIGH ALERT Medication. piperacillin/tazobactam (ZOSYN) 3.375 Given - New 02/09/2018 3.375 g 100 mL/hr g/50 mL iso-osmotic IVPB Bag 23:35 CDT 3.375 g, Intravenous, at 100 mL/hr, EVERY 6 HOURS, 18 doses, First dose on Sat02/06/18 at 0600, Last dose on Sat02/10/18 at 1200 Given - New Bag 02/10/2018 3.375 g 100 mL/hr 06:17 CDT Given - New Bag 02/10/2018 3.375 g 100 mL/hr 11:12 CDT polyethylene glycol 3350 (MIRALAX) Given 01/28/2018 17 g packet 17 g 08:54 CDT 17 g (1 packet), Oral, DAILY, First dose on Sat01/28/18 at 0900, Until Discontinued polyethylene glycol 3350 (MIRALAX) Given 01/30/2018 17 g packet 17 g 08:37 CDT 17 g (1 packet), Oral, TWICE DAILY, First dose on Sat01/29/18 at 0900, Until Discontinued Given 01/30/2018 17 g 20:02 CDT Given 01/31/2018 17 g 08:25 CDT polyethylene glycol 3350 (MIRALAX) Given 02/07/2018 17 g packet 17 g 20:14 CDT 17 g (1 packet), Oral, TWICE DAILY, First dose on Sat02/06/18 at 1200, Until Discontinued, 8.5 GRAMS=0.5 PACKET 17 GRAMS=1 PACKET 34 GRAMS=2 PACKETS Given 02/08/2018 17 g 08:08 CDT Given 02/09/2018 17 g 08:00 CDT polyethylene glycol 3350 (MIRALAX) Given 01/31/2018 34 g packet 34 g 20:51 CDT 34 g (2 packet), Oral, TWICE DAILY, First dose on Sat01/31/18 at 2100, Until Discontinued Given 02/01/2018 34 g 08:03 CDT Given 02/01/2018 34 g 21:13 CDT potassium chloride oral solution 40-60 Given 01/26/2018 40 mEq mEq 11:43 CDT 40-60 mEq, Per NG tube, NEEDED, Starting Sat01/24/18 at 1645, Until Sat02/07/18 at 0741, Other..., For potassium replacement, See admin instructions, If urine output < 30 mL/hr or SCr >2 mg/dL, check with physician prior to giving K+ replacement. - K 3-4 mmol/L, administer KCl 40 mEq PO/NG x1 dose - K 2.5-2.9 mmol/L, administer KCl 60 mEq PO/NG x1 dose AND notify physician for additional dosing - K < 2.5 mmol/L notify physician for dosing Recheck serum potassium two hours after completion of appropriate replacement dose. Repeat this standing order x 2. Notify physician if serum potassium < 3.3 mmol/L after three replacements. Do NOT break or crush tablet prochlorperazine (COMPAZINE) injection Given 02/10/2018 10 mg 10 mg 01:50 CDT 10 mg, Intravenous, EVERY 6 HOURS PRN, Starting Sat02/09/18 at 0811, Until Sat02/14/18 at 1427, Nausea/Vomiting Injectable, PROTECT FROM LIGHT -- May be given undiluted, or each 5mg may be diluted with 9 mL of NS to facilitate titration. Given 02/12/2018 10 mg 16:22 CDT Given 02/13/2018 10 mg 22:33 CDT senna/docusate (SENOKOT-S) solution 10 Given 02/08/2018 10 mL mL 08:08 CDT 10 mL, Per NG tube, TWICE DAILY, First dose on Sat01/28/18 at 0900, Until Discontinued, Hold for loose stools. Note: 10 mL is equivalent to 1 senna/docusate tablet Given 02/08/2018 10 mL 20:14 CDT Given 02/09/2018 10 mL 08:00 CDT senna/docusate (SENOKOT-S) solution 5 mL Given 01/27/2018 5 mL 5 mL, Oral, TWICE DAILY, First dose on 08:01 CDT 01/27/18 at 0900, Until Discontinued, Hold for loose stools. Note: 10 mL is equivalent to 1 senna/docusate tablet Given 01/27/2018 5 mL 20:09 CDT simethicone (MYLICON) chew tablet 80 mg Given 02/08/2018 80 mg 80 mg, Oral, EVERY 6 HOURS PRN, 03:14 CDT Starting 02/08/18 at 0308, Until 02/14/18 at 1427, Flatulence sodium chloride 0.9 % infusion Given - New 01/26/2018 500 mL 1,000 mL, 500 mL, Intravenous, BOLUS, 1 Bag 08:25 CDT dose, 01/26/18 at 0730 sodium chloride 0.9 % infusion Given - New 02/03/2018 1,000 mL 500 mL/ hr 1,000 mL, 1,000 mL, Intravenous, at 500 Bag 13:10 CDT mL/hr, ONCE, 1 dose, 02/03/18 at 1200, Run over 2 hours prior to Cisplatin. NOTE: Administer premedications or antiemetics concurrently with IV fluids. sodium chloride 0.9 % infusion Given - New 02/05/2018 100 mL/hr 1,000 mL, Intravenous, at 100 mL/hr, Bag 11:28 CDT CONTINUOUS, Starting 02/05/18 at 1030, Until Jessie 02/06/18 at 0159 Given - New Bag 02/06/2018 100 mL/hr 00:09 CDT sodium chloride 0.9% (NS) 1,000 mL with Given - 02/03/2018 500 mL/hr potassium chloride 20 mEq, magnesium Bag 17:48 CDT sulfate 2 g IV infusion 1,000 mL, Intravenous, at 500 mL/hr, ONCE, 1 dose, 02/03/18 at 1600, Run IV after Cisplatin. thrombin 20,000 unit topical spray kit Given 01/26/2018 Topical, NEEDED, Starting 01/26/18 06:16 CDT at 0159, Until 02/02/18 at 1113, Other..., trach site bleeding, Apply to site of bleeding traMADol (ULTRAM) tablet 25-50 mg Given 02/12/2018 50 mg 25-50 mg, Oral, EVERY 6 HOURS PRN, 16:13 CDT Starting 02/09/18 at 1055, Until Sat02/14/18 at 1427, Pain PO Given 02/13/2018 50 mg 15:19 CDT Given 02/13/2018 50 mg 21:24 CDT vancomycin (VANCOCIN) 1,250 mg in Given - New 02/06/2018 1,250 mg 275 mL/hr dextrose 5% (D5W) IVPB Bag 18:02 CDT 1,250 mg, Intravenous, 275 mL, Administer over 60 Minutes, EVERY 12 HOURS, First dose on Jessie 02/06/18 at 1830, Until Discontinued, Note Pharmacokinetic Monitoring: Please record infusion start time (Action=Given) and stop time (Action=Completed) of dose when blood levels are drawn. Given - New Bag 02/07/2018 1,250 mg 275 mL/hr 06:29 CDT vancomycin (VANCOCIN) 1,500 mg in Given - New 02/06/2018 1,500 mg 200 mL/hr dextrose 5% (D5W) IVPB Bag 06:32 CDT 1,500 mg, Intravenous, 300 mL, Administer over 90 Minutes, ONCE, 1 dose, Jessie 02/06/18 at 0530, Note Pharmacokinetic Monitoring: Please record infusion start time (Action=Given) and stop time (Action=Completed) of dose when blood levels are drawn. WATER FOR INJECTION, STERILE IJ SOLN Given 02/03/2018 20 mL (Cabinet Override) 16:49 CDT NOW, 1 dose, 02/03/18 at 1600, Created by cabinet override WATER FOR IRRIGATION, STERILE IR SOLN Given 02/03/2018 (Cabinet Override) 16:49 CDT NOW, 1 dose, 02/03/18 at 1630, Created by cabinet override in this encounter
--- OUTSIDE RECORDS SUMMARY | 2018-03-17 15:14 | XMS REPORT | Encounter Summary ---
Author Author [facility] Organization [facility] Address Unknown Phone Unavailable Care Team Providers Care Airline Pilot Flight Instructor Name Role Phone No Pcp, Na PCP Unavailable Encounter Details Date Type Department Care Team Description 02/13/2018 [facility] Pasha Wood MD Therapy [address] [place] [address] [place] [address] [place] [address] [phone] Social History Tobacco Use Types Packs/Day Years Used Date Current Every Day Smoker Smokeless Tobacco: Never Used Alcohol Use Drinks/Week oz/Week Comments No Sex Assigned at Date Recorded Not on file as of this encounter Functional Status Functional Status Response Date of Assessment Does the patient have a hearing impairment: No 01/25/2018 as of this encounter Progress Notes * Corby Brennan - 02/13/2018 8:24 AM CDT Kelvin Zaldivar.received radiation therapy treatment today. 5of26 treatments. in this encounter Plan of Treatment Not on fileas of this encounter Visit Diagnoses Not on filein this encounter
--- OUTSIDE RECORDS SUMMARY | 2018-03-17 15:14 | XMS REPORT | Encounter Summary ---
Author Author [facility] Organization [facility] Address Unknown Phone Unavailable Care Team Providers Care Drive In Waiter/Waitress Name Role Phone No Pcp, Na PCP Unavailable Encounter Details Date Type Department Care Team Description 02/12/2018 [facility] Pasha Wood MD Therapy [address] [place] [address] [place] [address] [phone] Social History Tobacco Use Types Packs/Day Years Used Date Current Every Day Smoker Smokeless Tobacco: Never Used Alcohol Use Drinks/Week oz/Week Comments No Sex Assigned at Date Recorded Not on file as of this encounter Functional Status Functional Status Response Date of Assessment Does the patient have a hearing impairment: No 01/25/2018 as of this encounter Progress Notes * Sarina Ruggiero - 02/12/2018 9:17 AM CDT Kelvin Zaldivar.received radiation therapy treatment today. 4 Of 26 treatments. in this encounter Plan of Treatment Not on fileas of this encounter Visit Diagnoses Not on filein this encounter
--- OUTSIDE RECORDS SUMMARY | 2018-03-17 15:14 | XMS REPORT | Encounter Summary ---
Author Author [facility] Organization [facility] Address Unknown Phone Unavailable Care Team Providers Care Hospice Director Name Role Phone No Pcp, Na PCP Unavailable Encounter Details Date Type Department Care Team Description 02/11/2018 [facility] Pasha Wood MD Therapy [address] [place] [address] [place] [address] [place] [address] [phone] Social History Tobacco Use Types Packs/Day Years Used Date Current Every Day Smoker Smokeless Tobacco: Never Used Alcohol Use Drinks/Week oz/Week Comments No Sex Assigned at Date Recorded Not on file as of this encounter Functional Status Functional Status Response Date of Assessment Does the patient have a hearing impairment: No 01/25/2018 as of this encounter Progress Notes * Corby Brennan - 02/11/2018 8:24 AM CDT Kelvin Zaldivar.received radiation therapy treatment today. 3 of 26 treatments. lung in this encounter Plan of Treatment Not on fileas of this encounter Visit Diagnoses Not on filein this encounter
--- OUTSIDE RECORDS SUMMARY | 2018-03-17 15:14 | XMS REPORT | Encounter Summary ---
Author Author [facility] Organization [facility] Address Unknown Phone Unavailable Care Team Providers Care Director Of Finance Name Role Phone No Pcp, Na PCP Unavailable Encounter Details Date Type Department Care Team Description 02/12/2018 Pharmacy Visit [facility] [address] [place] [address] Social History Tobacco Use Types Packs/Day Years [...]
--- OUTSIDE RECORDS SUMMARY | 2018-03-17 15:14 | XMS REPORT | Encounter Summary ---
Author Author [facility] Organization [facility] Address Unknown Phone Unavailable Care Team Providers Care Nurseryman Assistant Name Role Phone No Pcp, Na PCP Unavailable Encounter Details Date Type Department Care Team Description 02/10/2018 [facility] Pasha Wood MD Therapy [address] [place] [address] [place] [address] [phone] Social History Tobacco Use Types Packs/Day Years Used Date Current Every Day Smoker Smokeless Tobacco: Never Used Alcohol Use Drinks/Week oz/Week Comments No Sex Assigned at Date Recorded Not on file as of this encounter Functional Status Functional Status Response Date of Assessment Does the patient have a hearing impairment: No 01/25/2018 as of this encounter Progress Notes * Sarina Ruggiero - 02/10/2018 8:47 AM CDT Kelvin Zaldivar.received radiation therapy treatment today. 2 of 26 treatments. in this encounter Plan of Treatment Not on fileas of this encounter Visit Diagnoses Not on filein this encounter
--- OUTSIDE RECORDS SUMMARY | 2018-03-17 15:14 | XMS REPORT | Encounter Summary ---
Author Author [facility] Organization [facility] Address Unknown Phone Unavailable Care Team Providers Care Criminal Justice Professor Name Role Phone No Pcp, Na PCP Unavailable Encounter Details Date Type Department Care Team Description 02/11/2018 Hosp Case Management - Social Brigette[facility]e Documentation Work Only [address] [place] [address] Social History Tobacco Use Types Packs/Day Years Used Date Current Every Day Smoker Smokeless Tobacco: Never Used Alcohol Use Drinks/Week oz/Week Comments No Sex Assigned at Date Recorded Not on file as of this encounter Functional Status Functional Status Response Date of Assessment Does the patient have a hearing impairment: No 01/25/2018 as of this encounter Progress Notes * Esthela Machuca - 02/11/2018 3:41 PM CDT 02/11/18-SHAHZAD received call from [facility] this date. Pt is inpt at this time and is about 1/2 thru radiation tx. He could be discharged on Wednesday 02/14 and pt wants to continue his tx closer to home which most likely is in a [facility] clinic. SHAHZAD discussed with Dr. Israel Canada's RN who will inform Dr. Wood who will discuss with pt. If pt still adamant about going elsewhere for the completion of tx he will need to be re-planned and this could cause undue delay in his tx. SHAHZAD will f/u with Minna and Dr. Wood tomorrow as to plan and will assist as needed. PATTY Lopez,CCM in this encounter Plan of Treatment Not on fileas of this encounter Visit Diagnoses Not on filein this encounter
--- OUTSIDE RECORDS SUMMARY | 2018-03-17 15:15 | XMS REPORT | Encounter Summary ---
Author Author [facility] Organization [facility] Address Unknown Phone Unavailable Care Team Providers Care Delivery Associate Name Role Phone No Pcp, Na PCP Unavailable Encounter Details Date Type Department Care Team Description 02/10/2018 [facility] - Radiation Interface, [facility] Treatment Therapy Data [address] [place] [address] Social History Tobacco Use Types Packs/Day Years [...] Treatment Not on fileas of this encounter Procedures Procedure Name Priority Date/Time Associated Diagnosis Comments RAD ONC TREATMENT Routine 02/14/2018 Results for [...] CDT procedure are in the results section. in this encounter Results * RAD ONC TREATMENT INFORMATION (02/14/2018 8:16 AM) Component Value Ref Range Course ID C1-Neck_Mediasti First Treatment Date 02-01-2018 02:58PM Last Treatment Date 02-14-2018 08:16AM Treatment Elapsed Days 13 Reference Point ID Neck_Mediastinum Dosage Given To Date [id number] Session Dosage Given [id number] Plan ID Neck_Med_I # Plan Name Generated from plan 'Neck_Med_IMRT' Fractions Treated to Date 6 Total Fractions on Plan 26 Prescribed Dose per 2 Fraction Prescription Dose 5,200 Specimen Performing Laboratory [facility] RAD ONC TREATMENT * RAD ONC TREATMENT INFORMATION (02/13/2018 8:33 AM) Component Value Ref Range Course ID C1-Neck_Mediasti First Treatment Date 02-01-2018 02:58PM Last Treatment Date 02-13-2018 08:33AM Treatment Elapsed Days 12 Reference Point ID Neck_Mediastinum Dosage Given To Date [id number] Session Dosage Given [id number] Plan ID Neck_Med_I # Plan Name Generated [...] Point ID Neck_Mediastinum Dosage Given To Date 20.38451134 Session Dosage Given [id number] Plan ID Neck_Med_I # Plan Name Generated from plan 'Neck_Med_IMRT' Fractions Treated to Date 4 Total Fractions on Plan 26 Prescribed Dose per 2 Fraction Prescription Dose 5,200 Specimen Performing Laboratory [facility] RAD ONC TREATMENT * RAD ONC TREATMENT INFORMATION (02/11/2018 8:40 AM) Component Value Ref Range Course ID C1-Neck_Mediasti First Treatment Date 02-01-2018 02:58PM Last Treatment Date 02-11-2018 08:40AM Treatment Elapsed Days 10 Reference Point ID Neck_Mediastinum Dosage Given To Date 18.50600081 Session Dosage Given [id number] Plan ID Neck_Med_I # Plan Name Generated from plan 'Neck_Med_IMRT' Fractions Treated to Date 3 Total Fractions on Plan 26 Prescribed Dose per 2 Fraction Prescription Dose 5,200 Specimen Performing Laboratory [facility] RAD ONC TREATMENT * RAD ONC TREATMENT INFORMATION (02/10/2018 8:41 AM) Component Value Ref Range Course ID C1-Neck_Mediasti First Treatment Date 02-01-2018 02:58PM Last Treatment Date 02-10-2018 08:41AM Treatment Elapsed Days 9 Reference Point ID Neck_Mediastinum Dosage Given To Date [id number] Session Dosage Given [id number] Plan ID Neck_Med_I # Plan Name Generated from plan 'Neck_Med_IMRT' Fractions Treated to Date 2 Total Fractions on Plan 26 Prescribed Dose per 2 Fraction Prescription Dose 5,200 Specimen Performing Laboratory [facility] RAD ONC TREATMENT in this encounter Visit Diagnoses Not on filein this encounter
--- OUTSIDE RECORDS SUMMARY | 2018-03-17 15:15 | XMS REPORT | Encounter Summary ---
Author Author [facility] Organization [facility] Address Unknown Phone Unavailable Care Team Providers Care Children'S Entertainer Name Role Phone No Pcp, Na PCP Unavailable Encounter Details Date Type Department Care Team Description 02/06/2018 [facility] Pasha Wood MD Therapy [address] [place] [address] [place] [address] [phone] Social History Tobacco Use Types Packs/Day Years Used Date Current Every Day Smoker Smokeless Tobacco: Never Used Alcohol Use Drinks/Week oz/Week Comments No Sex Assigned at Date Recorded Not on file as of this encounter Functional Status Functional Status Response Date of Assessment Does the patient have a hearing impairment: No 01/25/2018 as of this encounter Progress Notes * Pasha Wood MD - 02/06/2018 11:59 PM CDT Formatting of this note may be different from the original. Weekly Management Progress Note Date: 02/08/2018 Kelvin Zaldivar is a 42 y.o. male. Vitals: There were no vitals filed for this visit. Subjective There were no encounter diagnoses. Staging: Cancer Staging No matching staging information was found for the patient. Treatment Data Summary: Treatment Data 02/01/2018 02/02/2018 02/03/2018 02/06/2018 02/07/2018 Course ID T4-Pirm-Iwrxsgwl X8-Kcan-Rgdoombj R9-Xtus-Nsreqwvs P3-Wcxn-Znpuuuei C1 -Neck-Mediasti Plan ID Neck-Mediasti Neck-Mediast1 Neck-Mediast1 Neck-Mediast1:1 Neck-Med-I # Prescription Dose (cGy) 900 600 600 2,100 5,200 Prescribed Dose per Fraction (Gy) 3 3 3 3 2 Fractions Treated to Date 1 1 2 1 1 Total Fractions on Plan 3 2 2 7 26 Treatment Elapsed Days 0 1 2 5 6 Reference Point ID Neck-Mediastinum Neck-Mediastinum Neck-Mediastinum Neck- Mediastinum Neck-Mediastinum Dosage Given to Date (Gy) 3 6 9 12 [phone] Subjective: He could not lie down for planned radiotherapy in last two days due th the neck and chest pain and respiratory distress. He was placed and respiratory machine yesterday and he is able to lie down on treatment table for XRT today. Objective: on the ventilation with trach. Assessment: large neck and mediastinum mass Plan: continue planned XRT. Start new plan with IMRT and dose reduce to 2 Gy per fraction . He received chemotherapy on Saturday. in this encounter Plan of Treatment Not on fileas of this encounter Visit Diagnoses Not on filein this encounter
--- OUTSIDE RECORDS SUMMARY | 2018-03-17 15:15 | XMS REPORT | Encounter Summary ---
Author Author [facility] Organization [facility] Address Unknown Phone Unavailable Care Team Providers Care Metaphysics Teacher Name Role Phone No Pcp, Na PCP Unavailable Encounter Details Date Type Department Care Team Description 02/02/2018 [facility] Pasha Wood MD Therapy [address] [place] [address] [place] [address] [phone] Social History Tobacco Use Types Packs/Day Years Used Date Current Every Day Smoker Smokeless Tobacco: Never Used Alcohol Use Drinks/Week oz/Week Comments No Sex Assigned at Date Recorded Not on file as of this encounter Functional Status Functional Status Response Date of Assessment Does the patient have a hearing impairment: No 01/25/2018 as of this encounter Progress Notes * Milla Jara - 02/02/2018 9:12 AM CDT Kelvin Zaldivar.received radiation therapy treatment today. 2 of 10 treatments. in this encounter Plan of Treatment Not on fileas of this encounter Visit Diagnoses Not on filein this encounter
--- OUTSIDE RECORDS SUMMARY | 2018-03-17 15:15 | XMS REPORT | Encounter Summary ---
Author Author [facility] Organization [facility] Address Unknown Phone Unavailable Care Team Providers Care Principal Electrical Engineer Name Role Phone No Pcp, Na PCP Unavailable Encounter Details Date Type Department Care Team Description 02/05/2018 Nurse Only [facility] Center - Radiation Nellie Zelaya RN Therapy [address] [place] [address] Social History Tobacco Use Types Packs/Day Years Used Date Current Every Day Smoker Smokeless Tobacco: Never Used Alcohol Use Drinks/Week oz/Week Comments No Sex Assigned at Date Recorded Not on file as of this encounter Functional Status Functional Status Response Date of Assessment Does the patient have a hearing impairment: No 01/25/2018 as of this encounter Progress Notes * Nellie Zelaya, JOSE G - 02/05/2018 4:34 PM CDT Patient given 2mg morphine IV. JOSE G John on 42 notified of medication administration. in this encounter Plan of Treatment Not on fileas of this encounter Visit Diagnoses Not on filein this encounter Administered Medications Medication Order MAR Action Action Date Dose Rate Site morphine injection syringe 2 mg Given 02/05/2018 2 mg 2 mg, Intravenous, ONCE, 1 dose, Wed 16:46 CDT 02/05/18 at 1700, [facility] Center Infusion in this encounter
--- OUTSIDE RECORDS SUMMARY | 2018-03-17 15:15 | XMS REPORT | Encounter Summary ---
Author Author [facility] Organization [facility] Address Unknown Phone Unavailable Care Team Providers Care Master Sonar Technician Name Role Phone No Pcp, Na PCP Unavailable Encounter Details Date Type Department Care Team Description 02/01/2018 [facility] Pasha Wood MD Therapy [address] [place] [address] [place] [address] [phone] Social History Tobacco Use Types Packs/Day Years Used Date Current Every Day Smoker Smokeless Tobacco: Never Used Alcohol Use Drinks/Week oz/Week Comments No Sex Assigned at Date Recorded Not on file as of this encounter Functional Status Functional Status Response Date of Assessment Does the patient have a hearing impairment: No 01/25/2018 as of this encounter Progress Notes * Nicole Simon - 02/01/2018 3:55 PM CDT Kelvin Zaldivar.received radiation therapy treatment today. 1 of 3 treatments. in this encounter Plan of Treatment Not on fileas of this encounter Visit Diagnoses Not on filein this encounter
--- OUTSIDE RECORDS SUMMARY | 2018-03-17 15:15 | XMS REPORT | Encounter Summary ---
Author Author [facility] Organization [facility] Address Unknown Phone Unavailable Care Team Providers Care Senior Editor Name Role Phone No Pcp, Na PCP Unavailable Encounter Details Date Type Department Care Team Description 01/31/2018 [facility] Rad[facility] Pasha Wood MD Therapy [address] [place] [address] [place] [address] [phone] Social History Tobacco Use Types Packs/Day Years Used Date Current Every Day Smoker Smokeless Tobacco: Never Used Alcohol Use Drinks/Week oz/Week Comments No Sex Assigned at Date Recorded Not on file as of this encounter Functional Status Functional Status Response Date of Assessment Does the patient have a hearing impairment: No 01/25/2018 as of this encounter Progress Notes * Olimpia Martinez - 01/31/2018 5:12 PM CDT Kelvin Zaldivar.received a simulation for radiation therapy treatment planning today. in this encounter Plan of Treatment Not on fileas of this encounter Visit Diagnoses Not on filein this encounter
--- OUTSIDE RECORDS SUMMARY | 2018-03-17 15:15 | XMS REPORT | Encounter Summary ---
Author Author [facility] Organization [facility] Address Unknown Phone Unavailable Care Team Providers Care Special Forces Officer Name Role Phone No Pcp, Na PCP Unavailable Encounter Details Date Type Department Care Team Description 02/06/2018 [facility] Radiation Pasha Wood MD Therapy [address] [place] [address] [place] [address] [phone] Social History Tobacco Use Types Packs/Day Years Used Date Current Every Day Smoker Smokeless Tobacco: Never Used Alcohol Use Drinks/Week oz/Week Comments No Sex Assigned at Date Recorded Not on file as of this encounter Functional Status Functional Status Response Date of Assessment Does the patient have a hearing impairment: No 01/25/2018 as of this encounter Progress Notes * Corby Brennan - 02/06/2018 4:30 PM CDT Kelvin Zaldivar.received radiation therapy treatment today. 4 of 10 treatments. in this encounter Plan of Treatment Not on fileas of this encounter Visit Diagnoses Not on filein this encounter
--- OUTSIDE RECORDS SUMMARY | 2018-03-17 15:15 | XMS REPORT | Encounter Summary ---
Author Author [facility] Organization [facility] Address Unknown Phone Unavailable Care Team Providers Care Gas Fitter Name Role Phone No Pcp, Na PCP Unavailable Encounter Details Date Type Department Care Team Description 01/24/2018 Procedure Pass Main Operating Room [address] [place] [address] Social History Tobacco Use Types Packs/Day Years Used Date Never Assessed Sex Assigned at Date Recorded Not on file as of this encounter Plan of Treatment Not on fileas of this encounter Visit Diagnoses Not on filein this encounter
--- OUTSIDE RECORDS SUMMARY | 2018-03-17 15:15 | XMS REPORT | Encounter Summary ---
Author Author [facility] Organization [facility] Address Unknown Phone Unavailable Care Team Providers Care Warehouse Consultant Name Role Phone No Pcp, Na PCP Unavailable Reason for Visit * Auth/Cert Status Reason Specialty Diagnoses / Referred By Referred To Procedures Contact Contact Diagnoses Neck mass Diagnosis unknown Neck/chest mass Neck mass Encounter Details Date Type Department Care Team Description 01/24/2018 Anesthesia Main Operating Room Zaida Horan CRNA Event [address] [place] [address] [place] [address] [phone] Anesthesia Record Procedure Name Responsible Anesthesia Start Time Anesthesia Stop Time Anesthesiologist TRACHEOSTOMY (N/A Neck) Da Greco MD 01/24/18 1356 01/24/18 1513 Date Time Event Comment 1231 AN Equip Check 2017 1356 Anes Start 1356 An Start Data 1406 An Induction The patient was reevaluated immediately before moderate or deep sedation use and before anesthesia induction. 1408 An Intubation 1412 Anesthesia Ready 1419 IV Placed 1422 Antibiotic Given 1429 Proc Start 1441 An Extubation ETT cuff deflated per ENT, ETT slowly removed and trach placed by ENT without issue, placement verified with chest rise and +CO2 1453 an rosalind now 1505 an stop data 1505 Transport SV, VSS, 100% FiO2, Patient taken up to MICU on full monitors. 1513 Handoff to RN I completed my SBAR handoff to the receiving nurse. 1513 An Stop Meds Name Total midazolam (VERSED) 1 mg/mL injection 2 mg fentaNYL PF (SUBLIMAZE) injection 100 mcg lidocaine (2%) 200 mg/10mL Injection 100 mg syringe propofol (DIPRIVAN) 200 mg/ 20 mL 290 mg injection (VIAL) succinylcholine (ANECTINE) injection 140 mg (VIAL) rocuronium (ZEMURON) injection 20 mg ondansetron (ZOFRAN) injection 4 mg dexamethasone (DECADRON) 4 mg/mL 4 mg injection sugammadex (BRIDION) 100 mg/mL iv soln 160 mg ceFAZolin (ANCEF) injection 2 g dexmedetomidine in 0.9 % NaCl (PRECEDEX) 17.14 mcg infusion lactated ringers infusion 500 mL * Name O2 N2O Inspired N2O Air Sevoflurane Inspired Sevoflurane * No blood administrations on file. Type Details Placement Removal Peripheral 01/24/18; 0054; RN; R; Mid; Forearm; 20 01/24/18 0054 by 12/15 1300 by Iker, IV G; 1; Symptomatic (phlebitis, pain, Linthavong, Hilda Collins RN leaking, infiltration); 01/27/18; 1300 RN Tracheosto 01/24/18; 1408; 6.0; Cuffed, Shiley; 01/24/18 1408 by 0400 by Baxa, my Tube 02/06/18; 0400 Homa Gonzalez, KAUR Shah RN ETT 01/24/18; 1408; Ventilated by mask (1); 01/24/18 1408 by Aung, 1441 by Aung, Direct laryngoscopy, Stylet; LIANNA Cerda CRNA Single-Lumen, Cuffed; 5mm (PROPERTY VALUER); Mac; 4; Oral; 1-Full view of the glottis; 1 insertion attempt; Auscultation, ETCO2 Detector; 24 centimeters; Pt preoxygenated on PSVpro, propofol slowly titrated and manual ventilation initiated once apneic, easy mask ventilation verified before paralytic, intubation atraumtic ,no change to lips/dentition; 01/24/18; 1441 Peripheral 01/24/18; 1419; Provider; L; Forearm; 18 01/24/18 1419 by Aung, 01/30/18 1812 by IV G; 1; 01/30/18; 181 LIANNA Cerda Bobby, JOSE G Wounds 01/24/18; 1432; Neck; Surgical Incision; 01/24/18 1432 by 0800 by Domenico (NOT for 01/28/18; 0800; sutures, velcro strap Homa Gonzalez, DUSTINN JOSE G Richard Pressure Injuries) NG/OG Tube 01/24/18; 1505; Left Nare; 8 FR; Yes; 01/24/18 1505 by Femi, 01/24/18 1522 by Isaac, 01/24/18; 1522 JOSE G Randolph RN in this encounter Social History Tobacco Use Types Packs/Day Years Used Date Never Assessed Sex Assigned at Date Recorded Not on file as of this encounter OR Notes * Anesthesia Postprocedure Evaluation - Matthew Josue CRNA - 01/24/2018 3: 29 PM CDT Post-Anesthesia Evaluation Name: Kelvin Zaldivar : 1975 Age: 42 y.o. Sex: male Procedure Date: 01/24/2018 Procedure: Procedure(s): TRACHEOSTOMY Surgeon: Surgeon(s): Jorge Neff MD Lu, MD Rachel Rg Stephen, MD Post-Anesthesia Vitals BP: (128)/(82) Pulse: [102] Respirations: [17 PER MINUTE] SpO2: [97 %] O2 Delivery: Trach Shield (01/24 1515) SpO2 Pulse: [101] Post Anesthesia Evaluation Note Evaluation location: ICU Patient participation: recovered; patient participated in evaluation Level of consciousness: alert Pain score: 0 Pain management: adequate Hydration: normovolemia Temperature: 36.0C - 38.4C Airway patency: adequate Perioperative Events Perioperative events: no Post-op nausea and vomiting: no PONV Postoperative Status Cardiovascular status: hemodynamically stable Respiratory status: spontaneous ventilation and supplemental oxygen Follow-up needed: imaging Additional comments: Ventilator settings: N/A Vasoactive Drips: N/A Blood products/Hemostatic Agents/Anticoagulants: N/A Special Considerations: N/A Patient was transported with supplemental oxygen and routine cardiovascular monitoring, including pulse oximetry. Individuals present during transport include Saeed Jensen, LIANNA, ENT resident, OR nurse. The patient was admitted to the ICU under care of the critical care team. This information was communicated between anesthesia and the receiving team. Perioperative Events Perioperative Event: No Emergency Case Activation: No Associated attestation - Da Greco MD - 01/24/2018 3:39 PM CDT Formatting of this note may be different from the original. ATTESTATION Post-Anesthesia Evaluation and ICU Transfer Note Attestation: I evaluated the patient and the indicated post-anesthesia care is discharge and transfer to the ICU physician-lead team. Staff name: Da Greco MD Date: 01/24/2018 * Anesthesia Preprocedure Evaluation - Zaida Horan CRNA - 01/24/2018 1:07 PM CDT Formatting of this note may be different from the original. Anesthesia Pre-Procedure Evaluation Name: Kelvin Zaldivar : 1975 Age: 42 y.o. Sex: male Procedure Date: 01/24/2018 Procedure: Procedure(s): TRACHEOSTOMY Physical Assessment Vital Signs (last filed in past 24 hours): BP: 136/90 (01/24 1130) Temp: 36.5 C (97.7 F) (01/24 125) Pulse: 105 (01/24 125) Respirations: 19 PER MINUTE (01/24 125) SpO2: 98 % (01/24 125) O2 Delivery: None (Room Air) (01/24 1259) Height: 201.2 cm (79.2") (01/24 0048) Weight: 79.1 kg (174 lb 6.1 oz) (01/24 1259) Patient History No Known Allergies Current Medications Not on File Review of Systems/Medical History Patient summary reviewed Nursing notes reviewed Pertinent labs reviewed PONV Screening: Postoperative opioids No history of anesthetic complications No family history of anesthetic complications Airway CT chest demonstrated 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 Dysphonia Pulmonary Current smoker; patient did not smoke on day of surgery Shortness of breath (when laying flat, has been sleeping elevated x3 weeks) Cardiovascular - negative Exercise tolerance: <4 METS (No difficulty breathing at rest but states that he cannot exert himself without becoming somewhat dyspneic) Beta Yordy therapy: No Beta blockers within 24 hours: No GI/Hepatic/Renal - negative Neuro/Psych - negative Musculoskeletal - negative Endocrine/Other - negative Physical Exam Airway Findings Mallampati: II TM distance: >3 FB Neck ROM: full Mouth opening: good Airway patency: adequate Dental Findings: Negative Cardiovascular Findings: Negative Comments: Sinus tach Pulmonary Findings: Rhonchi. Abdominal Findings: Negative Comments: Deferred Neurological Findings: Negative Comments: Alert and oriented Diagnostic Tests Hematology: Lab Results Component Value Date HGB 14.4 01/24/2018 HCT 42.4 01/24/2018 PLTCT 206 01/24/2018 WBC 18.9 01/24/2018 NEUT 89 01/24/2018 ANC 16.80 01/24/2018 ALC 1.00 01/24/2018 ANA 5 01/24/2018 AMC 0.90 01/24/2018 EOSA 1 01/24/2018 ABC 0.00 01/24/2018 MCV 88.4 01/24/2018 MCH 30.0 01/24/2018 MCHC 33.9 01/24/2018 MPV 7.2 01/24/2018 RDW 13.9 01/24/2018 General Chemistry: Lab Results Component Value Date NA 133 01/24/2018 K 4.1 01/24/2018 CL 101 01/24/2018 CO2 21 01/24/2018 GAP 11 01/24/2018 BUN 13 01/24/2018 CR 0.99 01/24/2018 GLU 101 01/24/2018 CA 9.7 01/24/2018 ALBUMIN 4.1 01/24/2018 LACTIC 1.2 01/24/2018 TOTBILI 0.8 01/24/2018 Coagulation: Lab Results Component Value Date INR 1.2 01/24/2018 Anesthesia Plan ASA score: 3 Plan: general Induction method: intravenous NPO status: acceptable Informed Consent Anesthetic plan and risks discussed with patient. Use of blood products discussed with patient; consented to blood products. Plan discussed with: anesthesiologist. in this encounter Plan of Treatment Not on fileas of this encounter Visit Diagnoses Not on filein this encounter Administered Medications Medication Order MAR Action Action Date Dose Rate Site ceFAZolin (ANCEF) injection Given 01/24/2018 2 g INTRA-PROCEDURE MED, Starting Sat 14:22 CDT 01/24/18 at 1422, Until Discontinued, Anesthesia Intra-op dexamethasone (DECADRON) injection Given 01/24/2018 4 mg Intravenous, INTRA-PROCEDURE MED, 14:26 CDT Starting Sat01/24/18 at 1426, Until Discontinued, Nausea/Vomiting Injectable, Anesthesia Intra-op dexmedetomidine in 0.9 % NaCl (PRECEDEX) Given - New 01/24/2018 0.5 9.9 mL/hr infusion Bag 14:53 CDT mcg/kg/hr 50 mL, INTRA-PROCEDURE MED(CONT), Starting Sat01/24/18 at 1453, Until Sat01/24/18 at 1529, Anesthesia Intra-op Dose/Rate Change 01/24/2018 0.7 13.8 mL/hr 14:58 CDT mcg/kg/hr fentaNYL citrate PF (SUBLIMAZE) Given 01/24/2018 50 mcg injection 14:06 CDT INTRA-PROCEDURE MED, Starting Sat01/24/18 at 1428, Until Discontinued, Pain Injectable, Anesthesia Intra-op Given 01/24/2018 50 mcg 14:28 CDT lidocaine (PF) injection Given 01/24/2018 100 mg INTRA-PROCEDURE MED, Starting Sat 14:06 CDT 01/24/18 at 1406, Until Discontinued, Anesthesia Intra-op midazolam (VERSED) injection Given 01/24/2018 1 mg Intravenous, INTRA-PROCEDURE MED, 13:56 CDT Starting Sat01/24/18 at 1422, Until Discontinued, Agitation Injectable, Anxiety Injectable, Anesthesia Intra-op Given 01/24/2018 1 mg 14:22 CDT ondansetron (ZOFRAN) injection Given 01/24/2018 4 mg Intravenous, INTRA-PROCEDURE MED, 15:00 CDT Starting Sat01/24/18 at 1500, Until Sat01/24/18 at 1529, Nausea/Vomiting Injectable, Anesthesia Intra-op propofol (DIPRIVAN) injection Given 01/24/2018 100 mg INTRA-PROCEDURE MED, Starting Sat 14:06 CDT 01/24/18 at 1406, Until Discontinued, Anesthesia Intra-op Given 01/24/2018 100 mg 14:07 CDT Given 01/24/2018 90 mg 14:08 CDT rocuronium (ZEMURON) injection Given 01/24/2018 20 mg Intravenous, INTRA-PROCEDURE MED, 14:19 CDT Starting Sat01/24/18 at 1419, Until Discontinued, Anesthesia Intra-op succinylcholine (ANECTINE) injection Given 01/24/2018 140 mg Intravenous, INTRA-PROCEDURE MED, 14:07 CDT Starting Sat01/24/18 at 1407, Until Discontinued, Anesthesia Intra-op sugammadex (BRIDION) injection Given 01/24/2018 160 mg Intravenous, INTRA-PROCEDURE MED, 14:57 CDT Starting Sat01/24/18 at 1457, Until Discontinued, Anesthesia Intra-op in this encounter
--- OUTSIDE RECORDS SUMMARY | 2018-03-17 15:15 | XMS REPORT | Encounter Summary ---
Author Author [facility] Organization [facility] Address Unknown Phone Unavailable Care Team Providers Care Critical Care Nurse Specialist Name Role Phone No Pcp, Na PCP Unavailable Encounter Details Date Type Department Care Team Description 02/03/2018 Documentation [facility] - Radiation Pasha Wood MD Therapy [address] [place] [address] [place] [address] [phone] Social History Tobacco Use Types Packs/Day Years Used Date Current Every Day Smoker Smokeless Tobacco: Never Used Alcohol Use Drinks/Week oz/Week Comments No Sex Assigned at Date Recorded Not on file as of this encounter Functional Status Functional Status Response Date of Assessment Does the patient have a hearing impairment: No 01/25/2018 as of this encounter Progress Notes * Per Johnson - 02/03/2018 11:22 AM CDT Kelvin Zaldivar.received radiation therapy treatment today. 2 of 2 treatments. in this encounter Plan of Treatment Not on fileas of this encounter Visit Diagnoses Not on filein this encounter
--- OUTSIDE RECORDS SUMMARY | 2018-03-17 15:15 | XMS REPORT | Encounter Summary ---
Author Author [facility] Organization [facility] Address Unknown Phone Unavailable Care Team Providers Care Furniture Inspector Name Role Phone No Pcp, Na PCP Unavailable Reason for Visit * Reason Comments On-treatment * Auth/Cert Status Reason Specialty Diagnoses / Referred By Referred To Procedures Contact Contact Diagnoses Neck mass Diagnosis unknown Neck/chest mass Neck mass Encounter Details Date Type Department Care Team Description 01/31/2018 Office Visit Cancer Center - Radiation Morales Lundberg MD Neck mass (Primary Dx); Therapy [address] Carcinoma of unknown [address] [place] [address] primary (HCC) [place] [address] [place] [address] [phone] W Pasha guerrero MD [address] [place] [address] [phone] Social History Tobacco Use Types Packs/Day Years Used Date Current Every Day Smoker Smokeless Tobacco: Never Used Alcohol Use Drinks/Week oz/Week Comments No Sex Assigned at Date Recorded Not on file as of this encounter Functional Status Functional Status Response Date of Assessment Does the patient have a hearing impairment: No 01/25/2018 as of this encounter Progress Notes * Pasha Wood MD - 01/31/2018 6:00 PM CDT Inpatient consulted by Dr. Ruiz on 01/24/2018. 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 We brought him done this evening and simulated him for radiotherapy. We are going to give him larger palliative dose of 300 cGY for 3 fractions. After three fractions, he will start chemotherapy concurrently with radiotherapy. The radiotherapy dose will be reduced 200 cGy per fractions for total dose of 60 Gy or higher. The diagnosis and treatment option were discussed with him and informed consent was signed. He will start treatment tomorrow. in this encounter Plan of Treatment Not on fileas of this encounter Visit Diagnoses Diagnosis Neck mass - Primary Swelling, mass, or lump in head and neck Carcinoma of unknown primary (HCC) Other malignant neoplasm without specification of site
--- OUTSIDE RECORDS SUMMARY | 2018-03-17 15:15 | XMS REPORT | Encounter Summary ---
Author Author [facility] Organization [facility] Address Unknown Phone Unavailable Care Team Providers Care Sprayer Leather Name Role Phone No Pcp, Na PCP Unavailable Encounter Details Date Type Department Care Team Description 02/07/2018 Documentation [facility] - Radiation Pasha Wood MD Therapy [address] [place] [address] [place] [address] [phone] Social History Tobacco Use Types Packs/Day Years Used Date Current Every Day Smoker Smokeless Tobacco: Never Used Alcohol Use Drinks/Week oz/Week Comments No Sex Assigned at Date Recorded Not on file as of this encounter Functional Status Functional Status Response Date of Assessment Does the patient have a hearing impairment: No 01/25/2018 as of this encounter Progress Notes * Sarina Ruggiero - 02/07/2018 8:50 AM CDT Kelvin Zaldivar.received radiation therapy treatment today. [id number]. in this encounter Plan of Treatment Not on fileas of this encounter Visit Diagnoses Not on filein this encounter
--- OUTSIDE RECORDS SUMMARY | 2018-03-17 15:15 | XMS REPORT | Encounter Summary ---
Author Author [facility] Organization [facility] Address Unknown Phone Unavailable Care Team Providers Care Sales Representative Metals Name Role Phone No Pcp, Na PCP Unavailable Reason for Referral * Consult, Test & Treat Status Reason Specialty Diagnoses / Referred By Referred To Procedures Contact Contact Inpatient Specialty Radiation Therapy Diagnoses Pasha Wood MD [facility] Mediastinal mass [address] [place] [phone] Phone: Encounter Details Date Type Department Care Team Description 01/31/2018 Orders Only Cancer Center - Radiation Pasha Wood MD Mediastinal mass (Primary Therapy [address] Dx) [address] [place] [address] [place] [address] [phone] Social History Tobacco Use Types Packs/Day Years [...] Treatment Name Priority Associated Diagnoses Order Schedule RADIATION THERAPY SIMULATION Routine Mediastinal mass Ordered: 2017 as of this encounter Procedures Procedure Name Priority Date/Time Associated Diagnosis Comments RAD ONC TREATMENT Routine 02/07/2018 Results for [...] encounter Results * RAD ONC TREATMENT INFORMATION (02/07/2018 8:53 AM) Component Value Ref Range Course ID [id number]_Mediasti First Treatment Date 02-01-2018 02:58PM Last Treatment Date 02-07-2018 08:53AM Treatment Elapsed Days 6 Reference Point ID Neck_Mediastinum Dosage Given To Date [id number] Session Dosage Given [id number] Plan ID Neck_Med_I # Plan Name Generated from plan 'Neck_Med_IMRT' Fractions Treated to Date 1 Total Fractions on Plan 26 Prescribed Dose per 2 Fraction Prescription Dose 5,200 Specimen Performing Laboratory [facility] RAD ONC TREATMENT * RAD ONC TREATMENT INFORMATION (02/06/2018 4:30 [...] Fraction Prescription Dose 2,100 Specimen Performing Laboratory [facility] RAD ONC TREATMENT * RAD ONC TREATMENT INFORMATION (02/03/2018 11:30 [...] ONC TREATMENT * RAD ONC TREATMENT INFORMATION (02/02/2018 9:19 [...] ONC TREATMENT in this encounter Visit Diagnoses Diagnosis Mediastinal mass - Primary Swelling, mass, or lump in chest
--- OUTSIDE RECORDS SUMMARY | 2018-03-17 15:15 | XMS REPORT | Encounter Summary ---
Author Author [facility] Organization [facility] Address Unknown Phone Unavailable Care Team Providers Care Analytics Lead Name Role Phone No Pcp, Na PCP Unavailable Reason for Visit * Reason Comments Consult * Auth/Cert Status Reason Specialty Diagnoses / Referred By Referred To Procedures Contact Contact Diagnoses Neck mass Diagnosis unknown Neck/chest mass Neck mass Encounter Details Date Type Department Care Team Description 01/24/2018 Office Visit Cancer Center - Radiation Morales Lundberg MD Neck mass (Primary Dx) Therapy [address] [place] [address] [place] [address] [phone] Social History Tobacco Use Types Packs/Day Years Used Date Never Assessed Sex Assigned at Date Recorded Not on file as of this encounter Progress Notes * Morales Lundberg MD - 01/24/2018 4:00 PM CDT See inpatient note in this encounter Plan of Treatment Not on fileas of this encounter Visit Diagnoses Diagnosis Neck mass - Primary Swelling, mass, or lump in head and neck
--- OUTSIDE RECORDS SUMMARY | 2018-03-17 15:19 | XMS REPORT | Encounter Summary ---
Author Author [facility] Organization [facility] Address Unknown Phone Unavailable Care Team Providers Care Sludge Mill Operator Name Role Phone PCP Unavailable Encounter Details Date Type Department Care Team Description 01/23/2018 Hospital [facility] Encounter Hospital Radiology [address] [place] [address] Social History Tobacco Use Types Packs/Day Years Used Date Never Assessed Sex Assigned at Date Recorded Not on file as of this encounter Medications at Time of Discharge [...] crush and give through tube if needed enoxaparin (LOVENOX) 80 Inject 0.8 mL under the 60 Syringe 1 201702/14/2018 mg syrg skin twice daily. as of this encounter Plan of Treatment Not on fileas of this encounter Visit Diagnoses Not on filein this encounter
--- OUTSIDE RECORDS SUMMARY | 2018-03-17 15:19 | XMS REPORT | Encounter Summary ---
Author Author [facility] Organization [facility] Address Unknown Phone Unavailable Care Team Providers Care Sas Programmer Name Role Phone No Pcp, Na PCP Unavailable Reason for Visit * Auth/Cert Status Reason Specialty Diagnoses / Referred By Referred To Procedures Contact Contact Diagnoses Neck mass Diagnosis unknown Neck/chest mass Neck mass Encounter Details Date Type Department Care Team Description 01/24/2018 Surgery Main Operating Room Jorge Neff MD [facility] [address] [place] [address] [address] [place], [place] [id number] Social History Tobacco Use Types Packs/Day Years [...] am has been set up at [facility] [place] [address], - [phone]) Acute Hypoxic Respiratory Failure: Thought to be [...] not pass through the area of compression. AREA OPERATIONS DIRECTOR following. Anxiety:Due to new diagnosis. Psych evaluated [...] (placed on 02/06 through IR) + TFs. AREA OPERATIONS DIRECTOR following. Had a video swallow on 02/10 [...] or concerns regarding your hospital stay. Call [phone] Discharging attending physician: OMI BANDA [[id number]] Regular Diet You have no dietary restriction. Please continue with a healthy balanced diet. Gastro-Jejunal Tube Mcfp care instructions: *WASH HANDS PRIOR TO HANDLING [...] NEEDS TO BE PLACED IMMEDIATELY. [place] [address] Ph- [phone] Jacobo with Medical Oncology at [facility] Appointment date: 02/20/2018 Appointment time: 8:00 AM [...] [facility] Radiation Oncology) [address] [facility] [address] Feb 18, 2018 8:30 AM CDT Treatment with [facility] ([facility] Radiation Oncology) [address] [facility] [address] Feb 19, 2018 8:30 AM CDT Treatment with [facility] ([facility] Radiation Oncology) [address] [facility] [address] Feb 20, 2018 8:30 AM CDT Treatment with Pasha [facility] ([facility] Radiation Oncology) [address] [facility] [address] Feb 21, 2018 8:30 AM CDT Treatment with Pasha Wood MD [facility] - Radiation Therapy ([facility] Radiation Oncology) [address] [facility] [address] Feb 24, 2018 8:30 AM CDT Treatment with Pasha Wood MD [facility] - Radiation Therapy ([facility] Radiation Oncology) [address] [facility] [address] February 25, 2018 8:30 AM CDT Treatment with Pasha Wood MD [facility] - Radiation Therapy ([facility] Radiation Oncology) [address] [facility] [address] February 26, 2018 8:30 AM CDT Treatment with Pasha Wood MD [facility] - Radiation Therapy ([facility] Radiation Oncology) [address] [facility] [address] February 27, 2018 8:30 AM CDT Treatment with Pasha Wood MD [facility] - Radiation Therapy ([facility] Radiation Oncology) [address] [facility] [address] February 28, 2018 8:30 AM CDT Treatment with Pasha Wood MD [facility] - Radiation Therapy ([facility] Radiation Oncology) [address] [place], [place] [id number] Pending items needing follow up: None More [...] It is usually given by a health- rn care manager. You or a family member may be [...] the advice of your doctor or health rn care manager. Make sure you receive a puncture-resistant container to dispose of the needles and syringes once you have finished with them. Do not reuse these items. Return the container to your doctor or health rn care manager for proper disposal. Talk to your hazardous waste remover regarding the use of this medicine in children. Special care may be needed. What side effects may I notice from receiving this medicine? Side effects that you should report to your doctor or health rn care manager as soon as possible: allergic reactions like [...] attention (report to your doctor or health rn care manager if they continue or are bothersome): pain, [...] this medicine? Visit your doctor or health rn care manager for regular checks on your progress. Your condition will be monitored carefully while you are receiving this medicine. Notify your doctor or health rn care manager and seek emergency treatment if you develop breathing problems; changes in vision; chest pain; severe, sudden headache; pain, swelling, warmth in the leg; trouble speaking; sudden numbness or weakness of the face, arm, or leg. These can be signs that your condition has gotten worse. If you are going to have surgery, tell your doctor or health rn care manager that you are taking this medicine. Do [...] the skin to your doctor or health rn care manager. NOTE:This sheet is a summary. It may [...] or concerns related to the procedure, call [phone] for Saturday-Saturday 7-5. After-hours and weekends, please call [phone] and ask for the Interventional Medical Malpractice Paralegal on-call. Interventional Radiology Gastrostomy Tube (G-tube)Placement-Discharge Instructions [...] WHEN TO CALL THE DOCTOR: (Please call [phone] for severe symptoms) You have bleeding from [...] for problems or concerns related to the procedure,[phone] for Saturday-Saturday 7-5. After-hours and weekends, please [phone] and ask for the Interventional Medical Malpractice Paralegal on-call. in this encounter Medications at Time [...] encounter Progress Notes * Hilda De León, JOSE G - 02/14/2018 12:05 PM CDT Kelvin Zaldivar discharged on 02/14/2018. . Discharge instructions reviewed with patient and family. Valuables returned: n/a . Home medications: n/a . Functional assessment at discharge complete: Yes . Pt left unit via wheelchair accompanied by DIETITIAN TEACHER and family for d/c to home. Complete d/c teaching provided including medication administration, lovenox administration, gtube care, and follow up appt with written instructions given to patient. Patient verbalizes understanding of all teaching. Paper scripts given to patient prior to leaving unit. * Nayana Meeks MS,CCC-AREA OPERATIONS DIRECTOR - 02/14/2018 10:57 AM CDT SPEECH-LANGUAGE PATHOLOGY [...] with other means of communication (e.g. Writing) AREA OPERATIONS DIRECTOR will follow to ensure diet tolerance. May benefit from AREA OPERATIONS DIRECTOR upon dc in the future for speaking valve Therapist: Nayana Meeks MS,[facility]-AREA OPERATIONS DIRECTOR [id number] Date: 02/14/2018 * Omi Banda MD - [...] not pass through the area of compression. AREA OPERATIONS DIRECTOR following. Anxiety: Due to new diagnosis. Psych [...] (placed on 02/06 through IR) + TFs. AREA OPERATIONS DIRECTOR following. Had a video swallow on 02/10 [...] am has been set up at [facility] [place] [address], - ) - Rad Onc to transfer treatment to [...] 50% of the time was spent in pxbe-tw-samm contact with the patient at bedside. Omi Banda MD Medical Oncology Hospitalist 2802 Subjective Patient is doing ok today. No [...] 20,000 Units/ sodium bicarbonate 650 mg(#) PRN (Warp Clamper from Rx), prochlorperazine Q6H PRN, simethicone Q6H [...] Intensity Pain Scale 0-10 (Pain 1): 3 (02/13/185) Vitals: 02/06/18 1436 02/07/18 0800 02/14/18 0531 [...] Pertinent radiology reviewed. Omi Banda MD Pager [phone] * Luis Hyde MD - 02/14/2018 8:54 AM CDT Formatting of this note may be different from the original. End of Treatment Summary Note Date: 02/14/2018 Kelvin Zaldivar is a 42 y.o. male. Treatment Data Summary: Site Treatment Technique Treatment dates Dose/ Fraction (cGy) Total prescribed Dose (cGy) Total # of fractions # missed days Rt neck and mediastinum 3D-TUBE ROOM CASHIER 02/01/2018 - 02/06/2018 300 1200 4 1 Rt neck and mediastinum IMRT 02/07/2018 - 02/14/2018 200 1200 6 0 Mr. Zaldivar is a 42 y.o.malewith a PMH of tobaccoism with ~30 pack year hx. He presented after transfer from [facility] after evaluation for dysphagia &voice hoarseness revealed [...] of 3 Gy (12 Gy total) using 3D-TUBE ROOM CASHIER. Concurrent chemotherapy was then initiated with cisplatin/ [...] a follow up with radiation oncology in [place], [place]. Luis Hyde MD PGY-3 Radiation Oncology [...] team made aware. Will CTM * Mame Willoughby RN - 02/13/2018 5:[address] Banda [...] not pass through the area of compression. AREA OPERATIONS DIRECTOR following. Anxiety: Due to new diagnosis. Psych [...] (placed on 02/06 through IR) + TFs. AREA OPERATIONS DIRECTOR following. Had a video swallow on 02/10 [...] am has been set up at [facility] [place] [address], Ph- ) - Rad Onc to work on [...] 50% of the time was spent in tsje-rl-inux contact with the patient at bedside. Omi Banda MD Medical Oncology Hospitalist [id number] Subjective Patient is doing ok today. No [...] 20,000 Units/ sodium bicarbonate 650 mg(#) PRN (Warp Clamper from Rx), prochlorperazine Q6H PRN, simethicone Q6H PRN, traMADol Q6H PRN Objective: Vital Signs: Last Filed Vital Signs: 24 Hour Range BP: 110/64 (02/13 1400) Temp: 36.9 C (98.4 F) (02/13 1400) Pulse: 121 (02/13 1400) Respirations: 22 PER MINUTE (04/19 1400) SpO2: 93 % (02/13 1400) O2 [...] Pertinent radiology reviewed. Omi Banda MD Pager [phone] * Jim Hill, JOSE G - 02/13/2018 2:13 PM CDT RN at [...] RT. RT to bedside. Patient suctioned by charger operatorJim ARAIZA with relief. Stat CBC ordered per Dr. Banda. Primary RN, Mame updated. * WebbStewart, PT - 02/13/2018 11:10 AM CDT PHYSICAL [...] Stewart Webb DPT Date: 02/13/2018 * Nayana Meeks, MS,[facility]-AREA OPERATIONS DIRECTOR - 02/13/2018 9:24 AM CDT SPEECH-LANGUAGE PATHOLOGY [...] other asking regarding use of speaking valve. AREA OPERATIONS DIRECTOR had previously signed off as pt not [...] Encouraged pt to contact physician for repeat AREA OPERATIONS DIRECTOR orders if he is dave to redirect airflow/initiate voicing. Discussed with member of primary team. Will recommend upgrade diet as tolerated to regular/thin. Will recommend home health/outpatient AREA OPERATIONS DIRECTOR in the future as indicated for speaking valve. AREA OPERATIONS DIRECTOR will follow up prior to dc to ensure diet tolerance. Do not anticipate ongoing AREA OPERATIONS DIRECTOR needs in near future for dysphagia. Reviewed s/s aspiration for pt/family to monitor in home environment. RECOMMENDATIONS: Regular diet with thin liquids. PEG to supplement nutrition/hydration PO meds as tolerated Swallow Precautions: 100% supervision, small bites/sips, alternate bites/sips Frequent oral care to reduce risk of aspirating bacteria in oral secretions Assist pt with other means of communication (e.g. Writing) AREA OPERATIONS DIRECTOR will follow to ensure diet tolerance. May benefit from AREA OPERATIONS DIRECTOR upon dc in the future for speaking [...] therapy post acute hospitalization. Therapist: Nayana Meeks MS,CCC-AREA OPERATIONS DIRECTOR [id number] Date: 02/13/2018 * Carrol Rogers, RT - [...] Date: 02/13/2018 Torres AC=Airway clearance AM=Aerosolized medication BA=Martin aerosol DB&C=Deep breathe & cough FEV1=Forced expiratory volume in first second) IC=Inspiratory capacity LE=Lung expansion MDI=Metered dose inhaler Neb=Nebulizer O2=Oxygen Oxim=Oximetry PEFR=Peak expiratory flow rate CLERICAL OFFICE=Rapid Response Team * James Leahy, PT - 02/12/2018 3:02 PM CDT PHYSICAL THERAPY NOTE PT to patient room and patient agreeable to walk. Upon sitting edge of bed patient became nauseous with dry heaving. RN summoned for anti-emesis medication and given. This therapist returned thirty minutes later and patient declined ambulation on the account of continued nausea. Patient agreeable to ambulate with staff certified nurse midwife later when feeling better. PT will follow and provide intervention as appropriate. Therapist: James Leahy, PT Date: 02/12/2018 * Omi Banda MD [...] not pass through the area of compression. AREA OPERATIONS DIRECTOR following. Anxiety: Due to new diagnosis. Psych [...] (placed on 02/06 through IR) + TFs. AREA OPERATIONS DIRECTOR following. Had a video swallow on 02/10 [...] 8 am has been set up at [facility] ([address] [address], Ph- [phone]) - Rad Onc SW to work on [...] 50% of the time was spent in nidk-aj-lipo contact with the patient at bedside. Omi Banda MD Medical Oncology Hospitalist 4604 Subjective Patient is doing ok today. No [...] 20,000 Units/ sodium bicarbonate 650 mg(#) PRN (Warp Clamper from Rx), prochlorperazine Q6H PRN, simethicone Q6H [...] Pertinent radiology reviewed. 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 Jacobo on 4/26/18 at 8 am [address] [place] [address] - [phone] Nino Subjective Kelvin [...] 20,000 Units/ sodium bicarbonate 650 mg(#) PRN (Warp Clamper from Rx), prochlorperazine Q6H PRN, simethicone Q6H PRN, traMADol Q6H PRN Objective Vital Signs: Last Filed Vital Signs: 24 Hour Range BP: 121/65 (02/11 1312) Temp: 38.2 C (100.8 F) (02/11 1312) Pulse: 101 (02/11 0913) Respirations: 18 PER MINUTE (02/11 1312) SpO2: 93 % (02/11 1312) O2 Delivery: Trach Shield (02/11 131) SpO2 Pulse: 100 (02/10 1600) BP: (107-122)/(51-70) [...] Review: Pertinent radiology reviewed. Winsome Guido, PATRICK [phone] * Felisa Alvarenga, ELOISE - 02/11/2018 2:30 PM CDT Formatting of this note may be different from the original. OCCUPATIONAL THERAPY ASSESSMENT NOTE Patient Name: Kelvin Zaldivar Room/Bed: [place] [address] Admitting Diagnosis: Neck/chest mass Neck mass Past [...] family will determine if they stay at [facility], [facility] or elsewhere. 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 Cleans dentures, washes face and hands. AREA OPERATIONS DIRECTOR arrives for eval. Activity Tolerance Sitting Balance: [...] DC with SO to home or [facility] after training) Equipment Recommendations: (bath chair or sink bath method initially) Recommend ongoing assistance for: In and out of house, Transfers, Bed mobility, Ambulation, Stairs Therapist: Felisa Luo[place] OTR [id number] Date: 02/11/2018 * Luna Mcclellan DO - [...] and concentration: appropriate Cognition: alert Language: fluent, French speaker Fund of knowledge/vocabulary: average Gait: unable [...] between 8am and 3pm on weekends at [phone]. Otherwise, page the residential finish carpenter network operations project manager. DO Tj Harris Scott, PT - 02/11/2018 [...] not pass through the area of compression. AREA OPERATIONS DIRECTOR following. Anxiety: Due to new diagnosis. Psych [...] (placed on 02/06 through IR) + TFs. AREA OPERATIONS DIRECTOR following. Had a video swallow on 02/10 [...] script for choi check. - Evaluated bu AREA OPERATIONS DIRECTOR, will advance to mechanical soft diet. - [...] 50% of the time was spent in wltr-ab-resr contact with the patient at bedside. Omi Banda MD Medical Oncology Hospitalist 9329 Subjective Patient is doing ok today. No [...] 20,000 Units/ sodium bicarbonate 650 mg(#) PRN (Warp Clamper from Rx), prochlorperazine Q6H PRN, simethicone Q6H PRN, traMADol Q6H PRN Objective: Vital Signs: Last Filed Vital Signs: 24 Hour Range BP: 113/70 (02/11 913) Temp: 36.9 C (98.4 F) (02/11 913) Pulse: 101 (02/11 913) Respirations: 18 PER MINUTE (02/11 913) SpO2: 95 % (02/11 913) O2 Delivery: Trach Shield (02/11 913) SpO2 Pulse: 100 (02/10 1600) BP: (107-122)/(51-70) [...] hours) Intake/Output Summary (Last 24 hours) at 02/11/18942 Last data filed at 02/11/18912 Gross per [...] Pertinent radiology reviewed. Omi Banda MD Pager [phone] * Yane Dubois RN - 02/11/2018 4:51 AM CDT I have [...] Skin Assessment Performed skin assessment with Yane RN and Tresa ARAIZA Patient does not have [...] Date: 02/10/2018 Torres AC=Airway clearance AM=Aerosolized medication BA=Martin aerosol DB&C=Deep breathe & cough FEV1=Forced expiratory volume in first second) IC=Inspiratory capacity LE=Lung expansion MDI=Metered dose inhaler Neb=Nebulizer O2=Oxygen Oxim=Oximetry PEFR=Peak expiratory flow rate CLERICAL OFFICE=Rapid Response Team * Lavinia Baker OT - [...] pt may benefit from short stay in IPR setting. I attempted to see him for evaluation this afternoon , though pt was sleeping soundly in room. I believe pt is aware of discussion around IPR placement but will discuss further once OT has completed evaluation. Lavinia Baker OTR/L 6000 * Miguel Melara MD - 02/10/2018 1:50 PM CDT Formatting [...] > Still awaiting send out path from [facility] (immunostain for NUT). ID #Possible pneumonia - Sirs 2/, leukocytosis and [...] Transitioned to Med/Surg status on 02/09. Per special events driver , patient does not have options for home health and thus will need to be able to complete care for tracheostomy and PEG tube on his own/with assistance of significant other on discharge. Code Status:Full Code Patient was seen and discussed with Dr. Melara. Antonio Stover DO MS Internal Medicine, PGY-1 Pager [phone] ATTESTATION I personally performed the torres portions of the E/M visit, discussed case with resident and concur with resident documentation of history, physical exam, assessment, and treatment plan unless otherwise noted. Critical illness improving. Appropriate for transfer to the floor. Ongoing radiation therapy and will need assistance for post-hospital care planning. Staff name: Miguel Melara MD Date: 02/10/2018 __ Subjective: Kelvin Zaldivar [...] 000 Units/ sodium bicarbonate 650 mg(#) PRN (Warp Clamper from Rx), prochlorperazine Q6H PRN, simethicone Q6H [...] new radiology to review. * Nayana Meeks MS,CCC-AREA OPERATIONS DIRECTOR - 02/10/2018 1:22 PM CDT SPEECH-LANGUAGE PATHOLOGY VIDEOSWALLOW ASSESSMENT EVALUATION SUMMARY Videoswallow Summary*: A videoswallow summary was completed at this date. Pt known to this AREA OPERATIONS DIRECTOR from onset of this hospital admission. Pt [...] in oral secretions Ongoing dysphagia management from AREA OPERATIONS DIRECTOR. Ongoing AREA OPERATIONS DIRECTOR at next level of care. MBSImp Scale: [...] Acute Hospitalization. Prognosis*: Good NOMS Dysphagia Rating*: 6-Fffz-Nnfnaahp Dysphagia -Swallow safe but usually requires mod [...] transferred to the ICU on 02/06/18 following CLERICAL OFFICE for progressive hypoxemia and rising O2 requirements [...] from respiratory status changes. Therapist: Nayana Meeks MS,[facility]-AREA OPERATIONS DIRECTOR [id number] Date: 02/10/2018 * Wilton Isidro RN - 02/10/2018 1:13 PM CDT 0487 Assumed pt care at this time. Bedside [...] assessment. Will continue to monitor. * Karen Salcedo, RD - 02/10/2018 11:45 AM CDT CLINICAL [...] cleared for PO, goal diet: Regular/textures per AREA OPERATIONS DIRECTOR, however would continue with goal for 100% [...] 72 Hours Status: Not met;Ongoing Karen Salcedo, SHAN, LD, [facility] *0413 * Susu Bee, PT - 02/10/2018 9:58 [...] Mental / Cognitive Status: Alert;Oriented;Cooperative;Tracheostomy Persons Present: Certified Nurse Pain: Patient has no complaint of pain Comments: Trach shield to humidified air only (21%) Ambulation Assist: Independent Mobility in Community without Device Patient Owned Equipment: None Home Situation: Lives with Family Type of Home: House Entry Stairs: 1-2 Stairs In-Home Stairs: No Stairs Comments: 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 ID #Possible pneumonia - [...] Transition to Med/Surg status on 02/09. Per special events driver, patient does not have options for home [...] 000 Units/ sodium bicarbonate 650 mg(#) PRN (Warp Clamper from Rx), prochlorperazine Q6H PRN, simethicone Q6H [...] radiology to review. Homa Owen MD Pager [phone] * Andrew Sanchez, RN - 02/09/2018 7:50 AM CDT 0730 - Assumed pt. care at this time, bedside safety check performed, and plan of care reviewed. 0800 - Assessment complete, see ICU flowsheet for details. VS per pt. trends. Will continue to monitor. 1600 - VS stable per pt. trends. Will continue to monitor. * Cooper Sal, RN - 02/08/2018 8:36 PM CDT 1930 [...] videoswallow evaluation 02/10. Therapist: Yelitza Garber M.A. CF-AREA OPERATIONS DIRECTOR Voalte: [id number] Pager: [phone] Weekend Acute Pager: [phone] Date: 02/08/2018 * Hilda Dong, RN - 02/08/2018 1:49 PM CDT 1200: Assumed [...] to room, pt nauseous and vomiting. PRN la given, tube feeds held. 1600: Assessment complete [...] > Still awaiting send out path from [facility] (immunostain for NUT). ID #Leukocytosis #Possible pneumonia - Sirs 2/4, [...] transition to Med/Surg status on 02/09. Per special events driver, patient does not have options for home [...] 20,000 Units/ sodium bicarbonate 650 mg(#) PRN (Warp Clamper from Rx), simethicone Q6H PRN Vital Signs: [...] 0.20 K/UL COMPREHENSIVE METABOLIC PANEL Collection Time: 04/14/18 3:35 AM Result Value Ref Range Sodium [...] radiology to review. 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 RECOMMENDATIONS: PT Discharge Recommendations PT Discharge Recommendations: Inpatient Setting Recommend ongoing assistance for: In and out of house;Transfers;Bed mobility; Ambulation;Stairs Therapist: Susu Bee, PT, DPT Date: 02/07/2018 * Winsome Guido APRN - 02/07/2018 1:31 PM CDT Formatting of [...] MRI Donald- negative for evidence of mass [facility] Radiology Review (per verbal report) - Diffuse [...] management looking into options such as [facility] for patient and family at discharge - [...] 20,000 Units/ sodium bicarbonate 650 mg(#) PRN (Warp Clamper from Rx), polyethylene glycol 3350 BID PRN [...] Diagnostics Review: Pertinent radiology reviewed. Winsome Guido, RANGE MECHANIC [phone] Associated attestation - Caesar Yeboah MD - 02/07/2018 4:38 PM CDT I have reviewed subjective and objective findings with the nurse practitioner and I have personally interviewed and examined the patient. The ACID PURIFICATION EQUIPMENT OPERATOR's assessment and plan correspond to my own medical decision making. 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 Relatively low burden metastatic disease. Disc/Rec: Reviewed diagnostic findings and treatment plan with patient's sister. We are now at Day 5 of cycle 1 of Carbo/RIGGING LOFT REPAIRER-16. XRT is ongoing. The chemotherapy was tolerated [...] between 8am and 3pm on weekends at [phone]. Otherwise, page the residential finish carpenter network operations project manager. Subjective: Kelvin Zaldivar was seen today with [...] Pain Scale 0-10 (Pain 1): 6 (02/07/18 1057) Scheduled Medications: albuterol 0.5% (PROVENTIL; VENTOLIN) nebulizer [...] 20,000 Units/ sodium bicarbonate 650 mg(#) PRN (Warp Clamper from Rx), polyethylene glycol 3350 BID PRN [...] normal Attention span and concentration: fair Language: French, fluent Fund of knowledge and vocabulary: appropriate [...] and between 8am and 3pm on weekends [phone]. Otherwise, page the residential finish carpenter network operations project manager. Staff name: Karen Craven DO Date: 02/07/2018 * Nayana Meeks MS,CCC-AREA OPERATIONS DIRECTOR - 02/07/2018 9:28 AM CDT SPEECH-LANGUAGE PATHOLOGY [...] prior to diet initiation. No further acute AREA OPERATIONS DIRECTOR needs at this time. AREA OPERATIONS DIRECTOR will sign off. RECOMMENDATIONS Assist pt with other means of communication (e.g. Writing, mouthing words) When medically appropriate, will benefit from videoswallow study to assess swallow. Therapist: Nayana Meeks MS,[facility]-AREA OPERATIONS DIRECTOR [id number] Date: 02/07/2018 * Pablo Martinez, RN - 02/07/2018 6:37 AM CDT 1912: [...] today. ID #Leukocytosis #Possible pneumonia - Sirs 12/01, leukocytosis and tachycardia - Procal 0.06 WNL [...] transition to Med/Surg status on 02/08. Per special events driver, patient does not have options for home [...] vomiting, diarrhea, chest pain, headache. Sister from [place] is at bedside and requests to speak with Oncology team. Luzma Onc ACID PURIFICATION EQUIPMENT OPERATOR network operations project manager, notified and stated they would see patient [...] 20,000 Units/ sodium bicarbonate 650 mg(#) PRN (Warp Clamper from Rx), polyethylene glycol 3350 BID PRN [...] radiology to review. Homa Owen MD Pager [phone] Associated attestation - Gabrielle Bay MD - [...] of ICU level care. Gabrielle Bay MD [phone] * Homa Owen MD - 02/06/2018 5:34 [...] following ID #Leukocytosis #Possible pneumonia - Sirs 2, leukocytosis and tachycardia - Procal 0.06 WNL [...] of ICU level care. Gabrielle Bay MD [phone] * Carl Terry, RN - 02/06/2018 4:55 PM CDT 1600 - Assumed care, pt transported to Rad/Onc per bed, accompanied by this nurse,RT,NA, vented, tolerated well. 1620 - Pt transferred to Rad table, tolerating well. Tx in progress. 1645 - Pt returned to 650, care assumed by Wilton ARAIZA. * Wilton [...] 1100) to a goal of 65. * Yelitaz Cook - 02/06/2018 11:19 AM CDT CLINICAL NUTRITION Clinical Nutrition Follow-Up Summary Nutrition Assessment of Patient: Malnutrition Assessment: Malnutrition present Malnutrition Context: ICD-10 code E44: Acute illness/Moderate non-severe malnutrition Current Oral Intake: NPO Estimated Calorie Needs: 3695-9615 (28-32 kcal/kg admit wt of 79.1 kg) [...] 72 Hours Status: Not met;Ongoing Yelitza Cook Receptionist [employer]ounge *[phone] Associated attestation - Karen Salcedo, SHAN - 02/06/2018 1:39 PM CDT Agree with internet sales consultant's follow-up assessment/recommendations, however noted team's adjustment to EN order since internet sales consultant's visit - will page with recommendation to return to Isosource 1.5 goal rate 65ml/hr. 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 Cook Morning visit with the patient, asked how was he feeling today. He nodded and thumbs up as (good). The spiritual care team is available as needed, 20/05, through the [employer] switchboard ([phone]). For immediate response, please page [phone]. For a response within 24 hours, please submit an order in O2 for a supervisor slate splitting consult or call the administrative voicemail at [phone]. Please page or use consult order if patinet requests visit. Cook Morning will continue to follow. Date/Time: User: Pager: [phone] 02/06/2018 10:34 AM Desi Butt PCU 2 [...] Last Shower: 02/05/18 New Events or Follow-up: CLERICAL OFFICE called at 0313, pt transferred to ICU [...] Team contacted: Dr. Goodson Family/DPOA contacted: Britany pt's fiance Orders received: single view chest x-ray, ABGs, 40mg lasix, mucomyst, 62.5 solumedrol Patient transferred: [id number] * Lily Bello MD - 02/06/2018 3:54 [...] He is transferred to the ICU following CLERICAL OFFICE for progressive hypoxemia and rising O2 requirements [...] He received lasix and steroids x1 during CLERICAL OFFICE; will hold on further/additional diuresis and systemic [...] coarse breath sounds and decreased air entry. CLERICAL OFFICE was called later due to sao2 in [...] documentation unless otherwise noted. * Danny Beebe, - 02/05/2018 7:52 PM CDT Called to [...] dysphagia &voice hoarseness; evaluated by ENT in [place] who noted b/l paralyzed vocal cords. CT [...] changed to cuffless by ENT on 01/29. AREA OPERATIONS DIRECTOR following. Anxiety: -Due to new diagnosis. -Increase [...] placement as he will need to have correction reliable enteral nutrition till chemo/RT can starting working and he will let me know by tomorrow-- discussed in detail again today and he agreeable to have a G tube placed, consulted IR and hold lovenox/TF after midnight-- G tube placed on 02/05/18 and will start TF in AM, NGT [...] 50% of the time was spent in vlxk-es-tdic contact with the patient at bedside. Subjective [...] 20,000 Units/ sodium bicarbonate 650 mg(#) PRN (Warp Clamper from Rx), polyethylene glycol 3350 BID PRN, potassium chloride SR PRN OR potassium chloride PRN, sodium phosphate IVPB PRN (Warp Clamper from Rx) AND Phosphorus DAILY AM AND* * Notify Physician Ongoing Objective Vital Signs: Last Filed Vital Signs: 24 Hour Range BP: 142/84 (02/05 1546) Temp: 36.8 C (98.2 F) (02/05 154) Pulse: 98 (02/05 154) Respirations: 18 PER MINUTE (02/05 154) SpO2: 97 % (02/05 1546) O2 Delivery: Trach Shield (02/05 1500) SpO2 [...] Night NEWS Score: 2002- 3 2241- 4 4175- 5 Pain: 2010 Pt c/o right shoulder [...] dysphagia &voice hoarseness; evaluated by ENT in [place] who noted b/l paralyzed vocal cords. CT [...] changed to cuffless by ENT on 01/29. AREA OPERATIONS DIRECTOR following. Anxiety: -Due to new diagnosis. - [...] placement as he will need to have correction reliable enteral nutrition till chemo/RT can starting working and he will let me know by tomorrow-- discussed in detail again today and he agreeable to have a G tube placed, consulted IR and hold lovenox/TF after midnight - Last BM 02/02. On bowel regimen. Hyponatremia (resolved): - resolved now/ Na is normal. Leukocytosis: - Likely r/t neck mass. No sepsis. BCx3/ NGTD. UA 01/24 bland. Procalcitonin 01/24 was [...] 50% of the time was spent in nbdl-ng-gnft contact with the patient at bedside. Subjective [...] 20,000 Units/ sodium bicarbonate 650 mg(#) PRN (Warp Clamper from Rx), polyethylene glycol 3350 BID PRN, potassium chloride SR PRN OR potassium chloride PRN, sodium phosphate IVPB PRN (Warp Clamper from Rx) AND Phosphorus DAILY AM AND* * Notify Physician Ongoing Objective Vital Signs: Last Filed Vital Signs: 24 Hour Range BP: 124/82 (02/04 1122) Temp: 36.4 C (97.5 F) (02/04 112) Pulse: 100 (02/04 1122) Respirations: 16 PER [...] at 02/04/18 1531 Last data filed at 04/10/18 0700 Gross per 24 hour Intake 1005 [...] (Last 24 hours) Glucose: (!) 129 (02/04/18 9998) Radiology and other Diagnostics Review: Pertinent radiology [...] between 8am and 3pm on weekends at [phone]. Otherwise, page the residential finish carpenter network operations project manager. Subjective: Kelvin Zaldivar was seen today with [...] 20,000 Units/ sodium bicarbonate 650 mg(#) PRN (Warp Clamper from Rx), polyethylene glycol 3350 BID PRN, potassium chloride SR PRN OR potassium chloride PRN 40 mEq at 01/26/18 1143, sodium phosphate IVPB PRN (Warp Clamper from Rx) AND Phosphorus DAILY AM AND [...] normal Attention span and concentration: fair Language: French, fluent Fund of knowledge and vocabulary: appropriate [...] and between 8am and 3pm on weekends [phone]. Otherwise, page the residential finish carpenter network operations project manager. Staff name: Karen Craven, DO Date: 02/04/2018 * Stewart Webb, PT - [...] MRI Donald- negative for evidence of mass [facility] Radiology Review (per verbal report) - Diffuse [...] Patient discussed with Dr. Yeboah Subjective Kelvin Mezaers is a 42 y.o. male. No acute [...] 20,000 Units/ sodium bicarbonate 650 mg(#) PRN (Warp Clamper from Rx), polyethylene glycol 3350 BID PRN, potassium chloride SR PRN OR potassium chloride PRN, sodium phosphate IVPB PRN (Warp Clamper from Rx) AND Phosphorus DAILY AM AND Notify Physician Ongoing Objective Vital Signs: Last Filed Vital Signs: 24 Hour Range BP: 120/72 (02/04 230) Temp: 36.2 C (97.2 F) (02/04 230) Pulse: 87 (02/04 230) Respirations: 16 PER MINUTE (02/04 230) SpO2: 95 % (02/04 230) O2 Delivery: Trach Shield (02/04 230) SpO2 Pulse: 104 (02/03 1045) Height: 182.9 cm (72") (04/09 0729) BP: (114-165)/(66-101) Temp: [36.2 C (97.2 F)-37.1 [...] Diagnostics Review: Pertinent radiology reviewed. Winsome Guido, RANGE MECHANIC [phone] * Yusuf Hernandez RN - 02/04/2018 7:14 [...] dysphagia &voice hoarseness; evaluated by ENT in [place] who noted b/l paralyzed vocal cords. CT [...] changed to cuffless by ENT on 01/29. AREA OPERATIONS DIRECTOR following. Anxiety: - Due to new diagnosis. [...] placement as he will need to have spinner hydraulic reliable enteral nutrition till chemo/RT can starting [...] 50% of the time was spent in nxzq-pw-cien contact with the patient at bedside. Subjective [...] 20,000 Units/ sodium bicarbonate 650 mg(#) PRN (Warp Clamper from Rx), polyethylene glycol 3350 BID PRN, potassium chloride SR PRN OR potassium chloride PRN, sodium phosphate IVPB PRN (Warp Clamper from Rx) AND Phosphorus DAILY AM AND Notify Physician Ongoing Objective Vital Signs: Last Filed Vital Signs: 24 Hour Range BP: 130/80 (02/03 1539) Temp: 36.4 C (97.6 F) (02/03 1539) Pulse: 106 (02/03 133) Respirations: 18 PER MINUTE (02/03 133) SpO2: 99 % (02/04 1336) O2 Delivery: Trach Shield (02/03 1539) SpO2 Pulse: 104 (02/03 1045) Height: 182.9 cm (72") (02/03 729) BP: (117-165)/(67-101) Temp: [36.4 C (97.6 F)-37.3 [...] Current Oral Intake: NPO Estimated Calorie Needs: 6808-2956 (28-32 kcal/kg admit wt of 79.1 kg) [...] discussion of PEG placement is ongoing. Note AREA OPERATIONS DIRECTOR d/c'd speaking valve as pt not tolerating [...] Within 72 Hours Status: Partially met;Ongoing Jossy Vargas RD, LD [phone] *[id number] * Stewart Webb, PT - 02/03/2018 3:54 [...] increase activity as able. Therapist: Stewart Webb DPT Date: 02/03/2018 * Keily Goddard RN - [...] at this time. YES * Jada Olson, JOSE G - 02/03/2018 1:27 PM CDT 0730 patient [...] paged at this time * Jada Olson, JOSE G - 02/03/2018 10:00 AM CDT 0730 patient off unit at IR during shift change 1000 patient going from IR straight to Radiation * Jaron Bernstein RN - 02/03/2018 8:37 AM CDT Sedation physician [...] MRI Donald- negative for evidence of mass [facility] Radiology Review (per verbal report) - Diffuse [...] 20,000 Units/ sodium bicarbonate 650 mg(#) PRN (Warp Clamper from Rx), polyethylene glycol 3350 BID PRN, potassium chloride SR PRN OR potassium chloride PRN, sodium phosphate IVPB PRN (Warp Clamper from Rx) AND Phosphorus DAILY AM AND [...] other Diagnostics Review: Pertinent radiology reviewed. Winsome Lata, RANGE MECHANIC [phone] Associated attestation - Caesar Yeboah MD - 02/03/2018 3:53 PM CDT I have reviewed subjective and objective findings with the nurse practitioner and I have personally interviewed and examined the patient. The ACID PURIFICATION EQUIPMENT OPERATOR's assessment and plan correspond to my own medical decision making. 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 Day 1 of Cycle 1 of CDDP and RIGGING LOFT REPAIRER-16 today. Treatment plan reviewed with patient. Caesar [...] dysphagia &voice hoarseness; evaluated by ENT in [place] who noted b/l paralyzed vocal cords. CT [...] changed to cuffless by ENT on 01/29. AREA OPERATIONS DIRECTOR following. Anxiety: Due to new diagnosis. Controlled [...] 50% of the time was spent in gcbb-cw-otzn contact with the patient at bedside. Omi Banda MD Medical Oncology Hospitalist [phone] Subjective Patient is very anxious this morning. [...] 20,000 Units/ sodium bicarbonate 650 mg(#) PRN (Warp Clamper from Rx), potassium chloride SR PRN OR potassium chloride PRN, sodium phosphate IVPB PRN (Warp Clamper from Rx) AND Phosphorus DAILY AM AND Notify Physician Ongoing Objective: Vital Signs: Last Filed Vital Signs: 24 Hour Range BP: 129/82 (02/03 1020) Temp: 36.8 C (98.3 F) (02/03 1020) Pulse: 98 (02/03 1020) Respirations: 20 PER MINUTE (02/03 1020) SpO2: [...] Pertinent radiology reviewed. Omi Banda MD Pager [phone] * Tracie Wright RN - 02/02/2018 10:35 AM CDT ..Shift: day [...] Samreen Benton - 02/01/2018 11:48 PM CDT Cook Morning Warp Clamper visited patient and provided reading material. The spiritual care team is available as needed, 20/05, through the [employer] switchboard ([phone]). For immediate response, please page [phone]. For a response within 24 hours, please submit an order in O2 for a supervisor slate splitting consult or call the administrative voicemail at [phone]. * Karen Snow RN - 02/01/2018 8:44 [...] safe and stable for transfer. * Amber Gray, RN - 02/01/2018 6:40 PM CDT 0730 [...] *Higher points indicate higher acuity. Therapist: Danny Rodriguez RT Date: 02/01/2018 Torres AC=Airway clearance AM=Aerosolized medication BA=Martin aerosol DB&C=Deep breathe & cough FEV1=Forced expiratory volume in first second) IC=Inspiratory capacity LE=Lung expansion MDI=Metered dose inhaler Neb=Nebulizer O2=Oxygen Oxim=Oximetry PEFR=Peak expiratory flow rate CLERICAL OFFICE=Rapid Response Team * Latisha Solano, RANGE MECHANIC - 02/01/2018 7:05 AM CDT Formatting of this note may be different from the original. Critical Care Progress Note Kelvin Zaldivar Today's Date: 02/01/2018 Admission Date: 01/24/2018 LOS: 8 days Active Problems: Neck mass SVC (superior vena cava obstruction) Leukocytosis Hyponatremia Tobacco abuse Diagnosis unknown Carcinoma of unknown primary (HCC) Hospital Course: 42 y.o. male with a PMH of tobaccoism with ~30 pack year hx. About 3w ago developed dysphagia & voice hoarseness; evaluated by ENT in [place] who noted b/l paralyzed vocal cords. 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 Latisha Solano, RANGE MECHANIC Pager [phone] pager [phone] Subjective: Kelvin Zaldivar is a 42 y.o. [...] 20,000 Units/ sodium bicarbonate 650 mg(#) PRN (Warp Clamper from Rx), potassium chloride SR PRN OR potassium chloride PRN, sodium phosphate IVPB PRN (Warp Clamper from Rx) AND Phosphorus DAILY AM AND Notify Physician Ongoing, thrombin PRN Vital Signs: Last Filed Vital Signs: 24 Hour Range BP: 130/72 (02/01 354) Temp: 36.4 C (97.5 F) (02/01 354) Pulse: 98 (02/02 436) Respirations: 20 PER MINUTE (02/02 436) SpO2: 95 % (02/02 436) O2 Delivery: Trach Shield (01/31 1600) SpO2 Pulse: 93 (02/01 354) BP: (127-134)/(72-91) Temp: [36.4 C (97.5 F)-36.9 [...] Tube to TS LABS: Recent Labs 01/30/18 0421 01/31/18 0353 02/01/18 0343 NA 138 136* 137 K 4.5 4.4 4.1 CL 100 101 100 CO2 29 27 27 GAP 9 8 10 BUN 24 25 27* CR 0.87 0.77 0.82 GLU 112* 120* 120* CA 9.2 9.4 9.6 ALBUMIN 3.4* 3.4* 3.4* MG 1.9 2.1 -- PO4 4.4* 4.9* -- Recent Labs 01/30/18 0421 01/31/18 0353 02/01/18 0343 WBC 18.7* 21.1* 21.8* [...] Stairs: No 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 Winsome Guido, RANGE MECHANIC [phone] Associated attestation - Lamont Nino DO - 01/31/2018 6:14 PM CDT Patient seen and examined. Medical record, including radiographic and laboratory studies, has been reviewed. The documentation of history, physical findings and plan outlined by the ACID PURIFICATION EQUIPMENT OPERATOR represent my own medical decision making. Treatment plans outlined in detail for patient. I described a course of chemotherapy with cisplatin/etoposide, including potential side effects and toxicities. All questions answered to patient's satisfaction, and he agrees to proceed as outlined next week. We have signed informed consent, and will initiate treatment tentatively on 02/04. Lamont Nino DO, [facility] Medical Oncology Consult Service * Gabo Neumann MD - 01/31/2018 7:26 AM CDT Formatting [...] & voice hoarseness; evaluated by ENT in [place] who noted b/l paralyzed vocal cords. 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 Pt seen and discussed with Dr Neumann. Latisha Solano APRN Pager [phone] [phone] pager [phone] Subjective: Kelvin Zaldivar is a 42 y.o. [...] 20,000 Units/ sodium bicarbonate 650 mg(#) PRN (Warp Clamper from Rx), potassium chloride SR PRN OR potassium chloride PRN, sodium phosphate IVPB PRN (Warp Clamper from Rx) AND Phosphorus DAILY AM AND [...] Tracheostomy Tube to TS LABS: Recent Labs 01/29/1840601/30/18 0421 01/31/18 0353 NA 134* 138 136* K 4.2 4.5 4.4 CL 98 100 101 CO2 29 29 27 GAP 7 9 8 BUN 22 24 25 CR 0.74 0.87 0.77 GLU 112* 112* 120* CA 9.3 9.2 9.4 ALBUMIN 3.4* 3.4* 3.4* MG 2.0 1.9 2.1 PO4 4.4* 4.4* 4.9* Recent Labs 01/29/1840601/30/18 0421 01/31/18 0353 WBC 17.5* 18.7* 21.1* [...] plan unless otherwise noted. Staff name: Gabo Neumann MD Date: 01/31/2018 * Tara Treoj, JOSE G - 01/31/2018 6:01 AM CDT 4239 Assumed pt care at this time. Bedside safety check performed, plan of care reviewed. 2000 Physical assessment complete, please see ICU flowsheet for details. Pt trached on trach shield, alert and oriented x4. VSS per trends. Will continue to monitor. 0400 VSS per trends, AM labs drawn and sent. * Dilma Butterie - 01/30/2018 11:01 AM CDT Cook Morning Note: Admit Date: 01/24/2018 Reason for visit; Rounds. Church; [employer]. The patient couldn't speak loudly but tried to communicate with me by a whisper and nodding of his head. He was asked when do he think that he will be going home. He mouthed the words "hopefully today" and gave me a thumbs up. He was asked if he has good family support and he nodded yes and (smiled). The supervisor slate splitting didn't noticed any worries or concerns, the patient was sitting up in a chair and reading a book. The supervisor slate splitting addressed spiritual resources with the patient. The spiritual care team is available as needed, 20/05, through the [employer] switchboard ([phone]). For immediate response, please page [phone]. For a response within 24 hours, please submit an order in O2 for a supervisor slate splitting consult or call the administrative voicemail at [phone]. Please page or use consult order if patient requests visit. Date/Time: User: Pager: [phone] 01/30/2018 11:01 AM Desi Butt PCU 4 PCU * Dulce Kira - 01/30/2018 9:57 AM CDT SPEECH-LANGUAGE PATHOLOGY [...] will tolerate speaking valve in near future. AREA OPERATIONS DIRECTOR will discontinue speaking valve trials at this time, as not a candidate for speaking valve use. Pt functionally communicating wants/needs/ideas via written expression and mouthing words. Pt educated on etiology of intolerance of speaking valve, and AAC options, including writing, mouthing and use of smart phone voice to text applications. AREA OPERATIONS DIRECTOR will return to further discuss potential AAC [...] to further assess swallow when medically appropriate. AREA OPERATIONS DIRECTOR will be in contact with primary team. RECOMMENDATIONS Assist pt with other means of communication (e.g. Writing, mouthing words, phone apps) AREA OPERATIONS DIRECTOR will follow for ongoing AAC evaluation. Will be in contact with primary team regarding evaluation of swallow when medically appropriate. Likely will require a video swallow study prior to diet initiation. Will benefit from AREA OPERATIONS DIRECTOR at next level of care. Relevant Findings not previously included in AREA OPERATIONS DIRECTOR documentation: Laryngeal Endoscopic Examination (01/24/18): After obtaining [...] therapy post acute hospitalization. Therapist: Kira Cardona- AREA OPERATIONS DIRECTOR Student Date: 01/30/2018 Associated attestation - Nayana Meeks, ,CCC-AREA OPERATIONS DIRECTOR - 01/30/2018 10:21 AM CDT Attestation: I was present and involved in directing care of the patient throughout the speech therapy session. Nayana Constantino, MS, CCC-AREA OPERATIONS DIRECTOR [phone] * Susu Bee, PT - 01/30/2018 8:53 AM CDT PHYSICAL THERAPY PROGRESS NOTE SUBJECTIVE: Subjective Significant hospital events: Transferred from [facility] 01/24/[address] revealing large mass compressing airway, aortic arch and pulmonary artery. Pathology is pending. S/P tracheostomy, remains high risk airway (discussed briefly with team 01/27/18). 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 Will continue to monitor. * Gabo Neumann MD - 01/30/2018 7:52 AM CDT Formatting of this note may be different from the original. Critical Care Progress Note Kelvin Zaldivar Today's Date: 01/30/2018 Admission Date: 01/24/2018 LOS: 6 days Active Problems: Neck mass SVC (superior vena cava obstruction) Leukocytosis Hyponatremia Tobacco abuse Diagnosis unknown Hospital Course: 42 y.o. male with a PMH of tobaccoism with ~30 pack year hx. About 3w ago developed dysphagia & voice hoarseness; evaluated by ENT in [place] who noted b/l paralyzed vocal cords. 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 Pt seen and discussed with Dr Neumann. Latisha Solano, PATRICK Pager [phone] pager [phone] Subjective: Kelvin Zaldivar is a 42 y.o. [...] 20,000 Units/ sodium bicarbonate 650 mg(#) PRN (Warp Clamper from Rx), potassium chloride SR PRN OR potassium chloride PRN, sodium phosphate IVPB PRN (Warp Clamper from Rx) AND Phosphorus DAILY AM AND [...] of 0.87 mg/dL). Vitals: 01/28/18 0500 01/29/18 0501/30/18 0600 Weight: 76.2 kg (167 lb 15.9 [...] immunostain for NUT is being performed at [employer] and be reported in an addendum Oncology planning to visit with the patient today to discuss treatment options. Otherwise stable on 21% trach shield. OK for transfer to Oncology. Staff name: Gabo Neumann MD Date: 01/30/2018 * Winsome Guido APRN [...] MRI Donald- negative for evidence of mass [facility] Radiology Review (per verbal report) - Diffuse [...] Likely systemic treatment to be composed of [place] doublet therapy Patient seen and discussed with [...] 20,000 Units/ sodium bicarbonate 650 mg(#) PRN (Warp Clamper from Rx), potassium chloride SR PRN OR potassium chloride PRN, sodium phosphate IVPB PRN (Warp Clamper from Rx) AND Phosphorus DAILY AM AND Notify Physician Ongoing, thrombin PRN Objective Vital Signs: Last Filed Vital Signs: 24 Hour Range BP: 140/74 (01/29 1607) Temp: 36.8 C (98.3 F) (01/29 1607) Pulse: 98 (01/29 1607) Respirations: 18 PER MINUTE (01/29 1305) SpO2: 96 % (01/29 1607) O2 Delivery: Trach Shield (01/29 160) SpO2 Pulse: 118 (01/29 1607) BP: (114-140)/(70-83) [...] NUT BU IHC Reference Lab PERFORMED AT [facility] [place] Results Ref Lab RESULTS WILL BW REPORTED IN AN ADDENDUM Specimen Mail SLIDES [id number] CBC AND DIFF Collection Time: 01/30/18 4:21 [...] Diagnostics Review: Pertinent radiology reviewed. Winsome Guido, RANGE MECHANIC [phone] Associated attestation - Lamont Nino DO - 01/30/2018 5:48 PM CDT Patient seen and examined. Medical record, including radiographic and laboratory studies, has been reviewed. The documentation of history, physical findings and plan outlined by the ACID PURIFICATION EQUIPMENT OPERATOR represent my own medical decision making. Plans for approach to management of malignancy in progress. Hopeful of being able to initiate treatment soon. [facility] Consult Service * Tara Trejo, [...] to help him have a BM. * SalShen crocker - 01/29/2018 3:15 PM CDT PHYSICAL THERAPY MOBILITY NOTE Patient was mobilized today with the assistance of the P.T. mobility aide as part of the ongoing physical therapy plan of care. Aide: Shen Huang Date: 01/29/2018 * Kira Isidro - 01/29/2018 1:20 PM CDT CLINICAL NUTRITION Clinical Nutrition Follow-Up Summary Nutrition Assessment of Patient: Malnutrition Assessment: Malnutrition present Malnutrition Context: ICD-10 code E44: Acute illness/Moderate non-severe malnutrition Current Oral Intake: NPO Estimated Calorie Needs: 3806-0549 (28-32 kcal/kg admit wt of 79.1 kg) [...] 72 Hours Status: Partially met;Ongoing Kira Isidro, Receptionist [employer]ounge, *[phone] Associated attestation - Karen Salcedo RD - 01/29/2018 2:56 PM CDT Agree with internet sales consultant's follow-up assesssment/reocmmendations as summarized. 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 Otolaryngology team will sign off at [...] 20,000 Units/ sodium bicarbonate 650 mg(#) PRN (Warp Clamper from Rx), potassium chloride SR PRN OR potassium chloride PRN, sodium phosphate IVPB PRN (Warp Clamper from Rx) AND Phosphorus DAILY AM AND Notify Physician Ongoing, thrombin PRN Review of Systems: All other systems reviewed and are negative. Objective: Vital Signs: Last Filed Vital Signs: 24 Hour Range BP: 140/74 (01/29 160) Temp: 36.8 C (98.3 F) (01/29 1607) Pulse: 98 (01/29 1607) Respirations: 18 PER MINUTE (01/29 1305) SpO2: 96 % (01/29 1607) O2 Delivery: Trach Shield (01/29 160) SpO2 Pulse: 118 (01/29 1607) BP: (114-140)/(70-83) [...] NUT BU IHC Reference Lab PERFORMED AT [facility] [place] [place] Results Ref Lab RESULTS WILL BW REPORTED IN AN ADDENDUM Specimen Mail SLIDES [id number] Point of Care Testing (Last 24 hours) Glucose: (!) 112 (01/29/18 0407) Radiology and other Diagnostics Review: No pertinent radiology. Ángel Concepcion MD Pager [phone] * Gabo Neumann MD - 01/29/2018 8:18 AM CDT Formatting [...] & voice hoarseness; evaluated by ENT in [place] who noted b/l paralyzed vocal cords. 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 Vince Snider APRN Pulm/Critical Care Pager [phone] 01/29/2018 M2 team pager (2nd call/nights) [phone] __ Subjective: Kelvin Zaldivar is a 42 [...] 20,000 Units/ sodium bicarbonate 650 mg(#) PRN (Warp Clamper from Rx), potassium chloride SR PRN OR potassium chloride PRN, sodium phosphate IVPB PRN (Warp Clamper from Rx) AND Phosphorus DAILY AM AND [...] 01/29/18 0818 Last data filed at 01/29/18 040 Gross per 24 hour Intake 2425 ml [...] Tube to TS Laboratory: LABS: Recent Labs 01/27/1835601/28/1835001/29/18406 NA 132* 134* 134* K 4.2 4.2 4.2 CL 98 98 98 CO2 27 28 29 GAP 7 8 7 BUN 15 20 22 CR 0.82 0.76 0.74 GLU 114* 106* 112* CA 9.6 9.5 9.3 ALBUMIN 3.8 3.5 3.4* MG 1.9 2.0 2.0 PO4 2.8 3.8 4.4* Recent Labs 01/27/1835601/28/1835001/29/18406 WBC 20.0* 17.7* 17.5* HGB 13.0* 12.9* [...] plan unless otherwise noted. Staff name: Gabo Neumann MD Date: 01/29/2018 * Sonali Espino RN [...] trach has been changed. * Tara Trejo, RN - 01/29/2018 7:21 AM CDT 1935 Assumed [...] a 6.0 cuffless trach. * Nayana Meeks MS,CCC-AREA OPERATIONS DIRECTOR - 01/28/2018 3:00 PM CDT SPEECH-LANGUAGE PATHOLOGY [...] follow. RECOMMENDATIONS Speaking valve placement trials with AREA OPERATIONS DIRECTOR only Assist pt with other means of communication (e.g. Writing) AREA OPERATIONS DIRECTOR will follow for ongoing speaking valve/AAC evaluation. [...] therapy post acute hospitalization. 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 Will continue to monitor. * Gabo Neumann MD - 01/28/2018 7:11 AM CDT Formatting [...] & voice hoarseness; evaluated by ENT in [place] who noted b/l paralyzed vocal cords. 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 Vince Snider APRN Pulm/Critical Care Pager [phone] 01/28/2018 M2 team pager (2nd call/nights) [phone] __ Subjective: Kelvin Zaldivar is a 42 [...] 20,000 Units/ sodium bicarbonate 650 mg(#) PRN (Warp Clamper from Rx), potassium chloride SR PRN OR potassium chloride PRN, sodium phosphate IVPB PRN (Warp Clamper from Rx) AND Phosphorus DAILY AM AND [...] Tube to TS Laboratory: LABS: Recent Labs 01/26/1810401/27/1835601/28/18350 NA 132* 132* 134* K 3.8 4.2 4.2 CL 97* 98 98 CO2 23 27 28 GAP 12 7 8 BUN 22 15 20 CR 0.95 0.82 0.76 GLU 107* 114* 106* CA 9.6 9.6 9.5 ALBUMIN 4.0 3.8 3.5 MG 1.9 1.9 2.0 PO4 3.2 2.8 3.8 Recent Labs 01/26/1810401/27/1835601/28/18350 WBC 22.8* 20.0* 17.7* HGB 13.5 13.0* [...] Diagnostic Procedures Review: Reviewed Staff name: Vince Batresverocarlitos, RANGE MECHANIC Date: 01/28/2018 ATTESTATION ATTESTATION I personally performed [...] transfer to the floor. Staff name: Gabo Neumann MD Date: 01/28/2018 * Tara Trejo RN - 01/28/2018 5:30 AM CDT 1930 Assumed [...] Will continue to monitor. * Hilda Dong, RN - 01/27/2018 6:39 PM CDT 0730: Assumed [...] pt resting comfortably in room. * Lavinia Baker, OT - 01/27/2018 1:54 PM CDT OCCUPATIONAL [...] setting. Lavinia Baker OTR/L [phone] * Nayana Meeks MS,CCC-AREA OPERATIONS DIRECTOR - 01/27/2018 1:16 PM CDT SPEECH-LANGUAGE PATHOLOGY [...] see below. RECOMMENDATIONS Speaking valve placement with AREA OPERATIONS DIRECTOR only Assist pt with other means of communication (e.g. 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 Then was seen by ENT in [place] who noted paralyzed vocal cords, CT neck showed large right sided mass & pt was sent to the ED in [place]. Underwent CT c/a/p w/ contrast showing infiltrating [...] with stable physiologic parameters. Therapist: Nayana Meeks MS,CCC-AREA OPERATIONS DIRECTOR [phone] Date: 01/27/2018 * Shen Shields, RT [...] Date: 01/27/2018 Torres AC=Airway clearance AM=Aerosolized medication BA=Martin aerosol DB&C=Deep breathe & cough FEV1=Forced expiratory volume in first second) IC=Inspiratory capacity LE=Lung expansion MDI=Metered dose inhaler Neb=Nebulizer O2=Oxygen Oxim=Oximetry PEFR=Peak expiratory flow rate CLERICAL OFFICE=Rapid Response Team * Susu Bee, PT - 01/27/2018 10:24 AM CDT PHYSICAL THERAPY ASSESSMENT SUBJECTIVE: Subjective Significant hospital events: Transferred from OSH 01/24/[address] revealing large mass compressing airway, aortic arch and pulmonary artery. S/P tracheostomy, remains high risk airway (discussed briefly with team 01/27/18). 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) 114 (01/27/18 4334) Radiology and other Diagnostics Review: Pertinent radiology reviewed. Winsome Guido, RANGE MECHANIC [phone] Associated attestation - Lamont Nino DO - 01/27/2018 6:02 PM CDT Patient seen and examined. Medical record, including radiographic and laboratory studies, has been reviewed. The documentation of history, physical findings and plan outlined by the ACID PURIFICATION EQUIPMENT OPERATOR represent my own medical decision making. Final pathology pending. [facility] Oncology Consult Service * Gabo Neumann MD - 01/27/2018 6:50 AM CDT Formatting [...] & voice hoarseness; evaluated by ENT in [place] who noted b/l paralyzed vocal cords. 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 Vince Snider APRN Pulm/Critical Care Pager [phone] 01/27/2018 M2 team pager (2nd call/nights) [phone] __ Subjective: Kelvin Zaldivar is a 42 [...] Units/ sodium bicarbonate 650 mg(#) PRN ( Warp Clamper from Rx), potassium chloride SR PRN OR potassium chloride PRN, sodium phosphate IVPB PRN (Warp Clamper from Rx) AND Phosphorus DAILY AM AND* * Notify Physician Ongoing, thrombin PRN Vital Signs: Last Filed Vital Signs: 24 Hour Range BP: 143/82 (01/27 600) Temp: 36.9 C (98.4 F) (01/27 0400) Pulse: 106 (01/27 0600) Respirations: 20 PER MINUTE (01/27 600) SpO2: [...] diagnosis. Continue TFs. PT/OT. Staff name: Gabo Neumann MD Date: 01/27/2018 * Carrol Rogers, RT [...] Date: 01/27/2018 Torres AC=Airway clearance AM=Aerosolized medication BA=Martin aerosol DB&C=Deep breathe & cough FEV1=Forced expiratory volume in first second) IC=Inspiratory capacity LE=Lung expansion MDI=Metered dose inhaler Neb=Nebulizer O2=Oxygen Oxim=Oximetry PEFR=Peak expiratory flow rate CLERICAL OFFICE=Rapid Response Team * Karen Snow, RN - 01/26/2018 10:53 PM CDT 1950 [...] Units/ sodium bicarbonate 650 mg(#) PRN ( Warp Clamper from Rx), potassium chloride SR PRN OR potassium chloride PRN, sodium phosphate IVPB PRN (Warp Clamper from Rx) AND Phosphorus DAILY AM AND* [...] Range PH-ART-POC 7.47 (H) 7.35 - 7.45 TCU6-IXM-XKE 29 (L) 35 - 45 MMHG PO2-ART-POC 62 (L) 80 - 100 MMHG Base Def-ART-POC 3.0 MMOL/L O2 Sat-ART-POC 93.0 (L) 95 - 99 % Lzntsgmfdhw-GIQ-LEI 20.6 (L) 21 - 28 MMOL/L BLOOD GASES, PERIPHERAL VENOUS Collection Time: 01/25/18 6:20 PM Result Value Ref Range pH-Venous 7.37 7.30 - 7.40 PCO2-Venous 41 36 - 50 MMHG PO2-Venous 58 (H) 33 - 48 MMHG Base Deficit-Venous 1.4 MMOL/L O2 Sat-Venous 87.3 (H) 55 - 71 % Emlzukhtove-ZYY-Yfq 23.0 MMOL/L MAGNESIUM Collection Time: 01/26/18 1:05 [...] No pertinent radiology. Alhaji Ramos MD Pager [phone] * Yusef Tomlinson RN - 01/26/2018 7:17 [...] 500ml NS, 8.7% change, pt not responsive. ACID PURIFICATION EQUIPMENT OPERATOR notified. 1200 - Noon assessment completed at this time and charted per ICU flow sheet. No significant changes from previous assessment. VSS per pt trends. Will continue to monitor. 1600 - Afternoon assessment completed at this time and charted per ICU flow sheet. No significant changes from previous assessment. VSS per pt trends. Will continue to monitor. * Gabo Neumann MD - 01/26/2018 7:15 AM CDT Formatting [...] & voice hoarseness; evaluated by ENT in [place] who noted b/l paralyzed vocal cords. 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 Vince Snider APRN Pulm/Critical Care Pager [phone] 01/26/2018 M2 team pager (2nd call/nights) [phone] __ Subjective: Kelvin Zaldivar is a 42 [...] Units/ sodium bicarbonate 650 mg(#) PRN ( Warp Clamper from Rx), potassium chloride SR PRN OR potassium chloride PRN, sodium phosphate IVPB PRN (Warp Clamper from Rx) AND Phosphorus DAILY AM AND* [...] Pain Scale 0-10 (Pain 1): 6 (01/26/18 06) Vitals: 01/24/18 0048 01/24/18 1259 Weight: 79.1 kg (174 lb 6.1 oz) 79.1 kg (174 lb 6.1 oz) Intake/Output Summary: (Last 24 hours) Intake/Output Summary (Last 24 hours) at 01/26/18 0715 Last data filed at 01/26/18 06 Gross per 24 hour Intake 357.83 ml [...] Labs 01/24/18 0054 01/24/18 1730 01/25/18 0316 01/26/18 0105 NA 133* 130* 132* 132* K [...] TSH -- 2.030 -- -- Recent Labs 01/24/18 0054 01/24/18 1730 01/25/18 0316 01/26/18 0105 WBC 18.9* 20.7* 19.4* 22.8* HGB [...] tissue diagnosis. Continue TFs. Staff name: Gabo Neumann MD Date: 01/26/2018 * Lily Bello MD - 01/26/2018 1:05 AM CDT Preservative Filler Machine Operator Called to see patient for bleeding from trach site and increased tachypnea, no overt desaturations. Episode occurred after forceful coughing and retching. CXR without new pulmonary infiltrates. CBC, coags pending. Suspect superficial bleeding from trach wound and not pulmonary hemorrhage. Difficult to reinforce dressing at bleeding site; may consider topical thrombin spray if persistent brisk bleeding, and discussion with ENT. Lily Ace 2067 Addendum, 01/26/18 0515am Called to see [...] team to round on him early. Lily Ace 2067 * Antonio Vazquez, RT - 01/25/2018 10:52 PM CDT 2219 - pt. with SOA. RN sxn'd and RT sxn'd with lavage, resulting in moderate, thick secretions. 2250 -pt still SOA after a/a breathing tx. Will notify MD if pt. still SOA * Owen Thomas, RN - 01/25/2018 7:45 PM CDT 1945~~~ Received [...] called ENT and they will be here culture manager. She applied the thrombin spray.. Will monitor. * Gabo Neumann MD - 01/25/2018 4:15 PM CDT Formatting [...] work of breathing this afternoon ; ABG 7.47/29/ on 21% FiO2. Increased FiO2 to 40% [...] for decompensation. Prognosis guarded. Staff name: Gabo Neumann MD Date: 01/25/2018 * Carlos A Yang [...] neck mass Ebony Yang please page ENT network operations project manager with questions Subjective Kelvin Zaldivar is a [...] Units/ sodium bicarbonate 650 mg(# ) PRN (Warp Clamper from Rx), potassium chloride SR PRN OR potassium chloride PRN , sodium phosphate IVPB PRN (Warp Clamper from Rx) AND Phosphorus DAILY AM AND Notify Physician Ongoing Review of Systems: All other systems reviewed and are negative. Objective: Vital Signs: Last Filed Vital Signs: 24 Hour Range BP: 91/59 (01/25 700) Temp: 36.9 C (98.4 F) (01/25 0400) Pulse: 79 (01/25 08) Respirations: 17 PER MINUTE (01/25 08) SpO2: [...] Color,UA YELLOW Turbidity,UA 1+ (A) CLEAR-CLEAR Specific [place]-Urine 1.029 1.003 - 1.035 pH,UA 5.0 5.0 [...] pertinent radiology. Carlos A Yang MD Pager [phone] * Yusef Tomlinson, JOSE G - 01/25/2018 7:37 AM CDT 0730 - [...] to the chair when pt experienced nausea. ACID PURIFICATION EQUIPMENT OPERATOR at bedside, ordered Zofran. Med administered. Pt [...] & voice hoarseness; evaluated by ENT in [place] who noted b/l paralyzed vocal cords. 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 Vince Snider APRN Pulm/Critical Care Pager [phone] 01/25/2018 M2 team pager (2nd call/nights) [phone] __ Subjective: Kelvin Zaldivar is a 42 [...] potassium chloride PRN, sodium phosphate IVPB PRN (Warp Clamper from Rx) AND Phosphorus DAILY AM AND Notify Physician Ongoing Vital Signs: Last Filed Vital Signs: 24 Hour Range BP: 91/59 (01/25 700) Temp: 36.9 C (98.4 F) (01/25 040) Pulse: 71 (01/25 700) Respirations: 17 PER MINUTE (01/25 700) SpO2: 99 % (01/25 700) O2 Delivery: Trach Shield (01/25 700) SpO2 Pulse: 71 (01/25 700) Height: 201.2 cm (79.2") (01/24 1259) BP: [...] hours) Intake/Output Summary (Last 24 hours) at 01/25/18723 Last data filed at 01/25/18699 Gross per 24 hour Intake 720.97 ml [...] Other Diagnostic Procedures Review: Reviewed * Catia Ulloa, RN - 01/25/2018 5:19 AM CDT 01/24/2018 [...] anxiety. Dr. Bello updated and with VO angelicaay to administer additional 0.5 lorazepam if patient needs. Monitoring. * Miguel Melara MD - 01/24/2018 7:52 PM CDT Formatting [...] unknown Added automatically from request for surgery [id number] I spent 35 minutes (excluding time spent performing or supervising any procedures and independent of the time spent by the ACID PURIFICATION EQUIPMENT OPERATOR) providing and personally directing critical care services [...] large mass. Continue ICU care monitoring. Miguel Melara [phone] * Carl Terry RN - 01/24/2018 5:10 PM CDT 1640 [...] 01/24/2018 4:32 PM CDT This RN, IR Techs [place] Mina and Leora Nicholas at bedside [phone] [...] service. Plan of care discussed with Dr. Melara. Marvin Flores MD Pulmonary/Critical Care Fellow * [...] ENT Resident [phone] Associated attestation - Jorge Neff MD - 01/24/2018 3:44 PM CDT Formatting [...] Date: 01/24/2018 Torres AC=Airway clearance AM=Aerosolized medication BA=Martin aerosol DB&C=Deep breathe & cough FEV1=Forced expiratory volume in first second) IC=Inspiratory capacity LE=Lung expansion MDI=Metered dose inhaler Neb=Nebulizer O2=Oxygen Oxim=Oximetry PEFR=Peak expiratory flow rate CLERICAL OFFICE=Rapid Response Team * Dennis Romero RN - 01/24/2018 12:48 AM CDT Patient arrived on unit via ambulation accompanied by family. Patient transferred to the bed without assistance. Assessment completed, refer to flowsheet for details. paged of patient arrival to unit. Orders [...] cultures > Received dose of solumedrol during CLERICAL OFFICE, monitor clinically and consider adding steroids to [...] Patient care discussed with Dr. Ace Olguin, DO Family Medicine PGY-1 MICU 3 pager [phone] __ Primary Care Physician: No Pcp, Na [...] Vital Signs: 24 Hour Range BP: 121/80 (02/063) Temp: 36.7 C (98 F) (02/06 0354) Pulse: 104 (02/06 323) Respirations: 20 PER [...] Range PH-ART-POC 7.50 (H) 7.35 - 7.45 ITG8-CWL-SKR 37 35 - 45 MMHG PO2-ART-POC 55 (L) 80 - 100 MMHG Base Ex-ART-POC 6.0 MMOL/L O2 Sat-ART-POC 91.0 (L) 95 - 99 % Flaugoydcxz-ACC-NJL 28.7 (H) 21 - 28 MMOL/L POC [...] 0220) POC Glucose (Download): (!) 105 (02/06/18 5817) Radiology and Other Diagnostic Procedures Review: Pertinent radiology reviewed. Jessica Olguin DO Pager [phone] Associated attestation - Lily Bello MD - [...] assessment. Lily Bello 2067 * Fanny Colindres, RANGE MECHANIC - 02/05/2018 7:16 AM CDT Formatting of [...] 20,000 Units/ sodium bicarbonate 650 mg(#) PRN (Warp Clamper from Rx), polyethylene glycol 3350 BID PRN, potassium chloride SR PRN OR potassium chloride PRN, sodium phosphate IVPB PRN (Warp Clamper from Rx) AND Phosphorus DAILY AM AND* * Notify Physician Ongoing Vital Signs: Last Filed Vital Signs: 24 Hour Range BP: 127/81 (02/05 701) Temp: 36.9 C (98.4 F) (02/05 705) Pulse: 99 (02/05 701) Respirations: 18 PER MINUTE (02/05 701) SpO2: 96 % (02/05 701) O2 Delivery: Face Shield (02/05 445) SpO2 Pulse: 99 (02/05 701) BP: (115-141)/(69-86) [...] previous H&P performed on 02/04/18. Fanny Colindres, RANGE MECHANIC Pager [phone] * Maria Dolores Vallejo, MSN,RANGE MECHANIC - 02/03/2018 7:33 AM CDT Formatting of [...] 20,000 Units/ sodium bicarbonate 650 mg(#) PRN (Warp Clamper from Rx), polyethylene glycol 3350 BID PRN, potassium chloride SR PRN OR potassium chloride PRN, sodium phosphate IVPB PRN (Warp Clamper from Rx) AND Phosphorus DAILY AM AND [...] previous H&P performed on 02/02/18. [place], MSN,RANGE MECHANIC Pager [phone] * Oseas Valentine MD - 01/24/2018 5:13 [...] (98.5 F) (01/24 1520) Pulse: 85 (01/24 1700) Respirations: 11 PER MINUTE (01/24 170) SpO2: 100 % (01/24 1700) O2 Delivery: Humidifier RA (01/24 1700) SpO2 Pulse: 85 (01/24 1700) Height: 201.2 cm (79.2") (01/24 1259) [...] informed consent. Oseas Valentine MD * Naomi Altman, PATRICK - 01/24/2018 4:54 PM CDT Formatting of this note may be different from the original. 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 Then was seen by ENT in [place] who noted paralyzed vocal cords, CT neck showed large right sided mass & pt was sent to the ED in [place]. 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 - Tx to 01/24 & underwent tracheostomy for airway stabilization [...] Likely r/t neck mass, no infectious symptoms CUSTOMER CARE REPRESENTATIVE, afebrile - Blood cx (01/24): pending - Procal 0.06 FEN - No current IVF - Replace lytes PRN - PO access tomorrow Prophylaxis Review: Lines: PIV x2 Tubes/Drains: Trach VTE PPX: SCDs only GI ppx: Not indicated Insulin: None PT/OT: Yes Code status: Full Code Dispo: ICU 84672 x 1 - pt critically ill with neck mass, tracheal narrowing, vocal cord paralysis. I spent 60 minutes providing critical care services including: performing a physical examination serially reviewing laboratory, telemetry, hemodynamic, oximetry, and respiratory data reviewing radiographic images reviewing medications managing fluids/electrolytes, antibiotics, ICU prophylaxis, and oxygenation developing the overall plan of care Patient seen and discussed with Dr. Quinten Altman [facility] Pulmonary Critical Care Pager [phone] pager [phone] Primary Care Physician: No Pcp, Na HISTORY OF PRESENT ILLNESS: Kelvin Zaldivar is a 42 y.o. 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 Then was seen by ENT in [place] who noted paralyzed vocal cords, CT neck showed large right sided mass & pt was sent to the ED in [place]. Underwent CT c/a/p w/ contrast showing infiltrating [...] (98.5 F) (01/24 1520) Pulse: 88 (01/24 164) Respirations: 13 PER MINUTE (01/24 164) SpO2: 97 % (01/24 164) O2 Delivery: Humidifier RA (01/24 164) SpO2 Pulse: 88 (01/24 164) Height: 201.2 cm (79.2") (01/24 1259) BP: [...] Procedures Review: Reviewed Associated attestation - Miguel Melara MD - 01/24/2018 7:52 PM CDT Formatting of this note may be different from the original. ATTESTATION I personally performed the torres portions of the E/M visit, discussed case with Nurse Practitioner and concur with documentation of history, physical exam, assessment, and treatment plan unless otherwise noted. Please see separate note for initial assessment and plan. Staff name: Miguel Melara MD * Meggan Hooper MBBS - 01/24/2018 [...] reccs Pt was seen and discussed with Dr. Omid Hooper, [facility] Internal Medicine Resident-PGY3 Pager- [phone] Admission History and Physical Examination Name: Kelvin Zaldivar Admission Date: 01/24/2018 Assessment/Plan: Active Problems: Neck mass Mr Zaldivar is a 42 year old male with no significant past medical history presenting with neck mass encasing aorta and airway, transferred on 01/24 from [facility]. 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 -Patient has seen ENT Dr. Yun for loss of voice of 3 weeks duration on January 23, laryngoscopy showed paralyzed vocal cord. -In the ED on January 23 at [facility], CT scan of the neck [...] have radiation to help shrink tumour Leucocytosis -DCZ=[id number] on 01/23 at OSH, here JJR=[id number] -There are no signs of infection, no fever, this may be due to malignancy Plan: Will hold on giving antibiotics now but will do infectious work-up -Mild hyponatremia Ik=021 may be from dehydration patient is not [...] didn't improve so he saw ENT Dr charissa who did a laryngoscope and found vocal [...] Pertinent radiology reviewed. Heidi Barker MD Pager [phone] Associated attestation - Michele Alejandra DO - 01/24/2018 2:30 PM CDT Formatting [...] no allergy information on record. Staff name: Michele Alejandra DO Date: 01/24/2018 in this encounter Consult [...] Status: Not met;Ongoing Jossy Vargas RD, LD [phone] *[phone] * Gabo Howard MD - 02/02/2018 12:18 PM CDT Associated Order(s): CONSULT ADULT PSYCHIATRY PHYSICIAN Formatting of this note may be different from the original. PSYCHIATRY CONSULT NOTE Room/Bed: [place] [address] Admission Date: 01/24/2018 LOS: 9 days Consult [...] between 8am and 3pm on weekends at [phone]. Otherwise, page the residential finish carpenter network operations project manager. Chief Concern: Anxiety History of Present Illness: [...] other illicit substance use. Psychosocial/Substance History: Born: [place], [place] Raised by: parents, grandma Hx of Abuse: denies Family/Siblings: 2 sisters, close to 1 of them Level of Education: high school Occupational Status: employed Main source of Income: job Relationships: Has fiance over 5 years, 1 sixteen yo daughter Current Living Situation: with fiance and daughter in [place] Social History Social History Marital status: Single [...] 20,000 Units/ sodium bicarbonate 650 mg(#) PRN (Warp Clamper from Rx), polyethylene glycol 3350 BID PRN, potassium chloride SR PRN OR potassium chloride PRN, sodium phosphate IVPB PRN (Warp Clamper from Rx) AND Phosphorus DAILY AM AND Notify Physician Ongoing : Allergies: Patient has no known allergies. Review of Systems: A 14 point review of systems was negative except for: Musculoskeletal: positive for upper chest wall pain Vital Signs: Last Filed in 24 hours Vital Signs: 24 hour Range BP: 129/82 (02/02 1020) Temp: 36.8 C (98.3 F) (02/02 1020) Pulse: 98 (02/02 1020) Respirations: 20 PER MINUTE (02/02 1020) SpO2: 93 % (02/02 1020) O2 Delivery: Trach Shield (02/02 102) SpO2 Pulse: 108 (02/01 1954) BP: (115-136)/(70-89) [...] span and concentration: intact/sustained Cognition: intact Language: arabic Fund of knowledge and vocabulary: average Focused [...] and between 8am and 3pm on weekends [phone]. Otherwise, page the residential finish carpenter network operations project manager. Staff name: Miguelito Ragsdale MD Date: 02/02/2018 * Jessica Zimmerman RD - 01/25/2018 2:27 PM CDT Associated Order(s): CONSULT DIETITIAN CLINICAL NUTRITION Clinical Nutrition Assessment Summary Nutrition Assessment of Patient: BMI Categories Adult: Acceptable: 18.5-24.9 Unintentional Weight Loss: 5% in 1 month (significant) Malnutrition Assessment: Malnutrition present Malnutrition Context: ICD-10 code E44: Acute illness/Moderate non-severe malnutrition Current Oral Intake: NPO Estimated Calorie Needs: 4608-0677 (28-32 kcal/kg admit wt of 79.1 kg) [...] Mcgovern MD Radiation Oncology Resident PGY4 Pager [phone] History of Present Illness: Kelvin Zaldivar is [...] breathing and presented to the hospital in [place], [place]. Imaging showed a large mediastinal mass [...] potassium chloride PRN, sodium phosphate IVPB PRN (Warp Clamper from Rx) AND [START ON 01/25/2018] Phosphorus [...] Color,UA YELLOW Turbidity,UA 1+ (A) CLEAR-CLEAR Specific [place]-Urine 1.029 1.003 - 1.035 pH,UA 5.0 5.0 [...] expressed in this report Finalized by Saundra Alejandra M.D. on 01/24/2018 10 :20 AM. Dictated by Antonio Nicholson M.D. on 01/24/2018 7:[address] [facility] External Imaging shows the large mediastinal mass leading to obstructed airway. Christy Mcgovern MD Radiation Oncology Resident PGY4 Pager [phone] * Winsome Guido, RANGE MECHANIC - 01/24/2018 8:29 AM CDT Associated Order(s): [...] - MRI Donald- negative for evident mass [facility] Radiology Review (per verbal report) - Diffuse [...] 42 y.o. male admitted in transfer from [place], [place] with new finding of large neck [...] past medical history. 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 reports current tobacco use (1.5 packs/day [...] Air) (01/24 700) Height: 201.2 cm (79.2") (01/248) BP: (131-140)/(76-85) Temp: [36.2 C (97.2 F)-36.9 [...] 0.5 - 2.0 MMOL/L Pertinent radiology reviewed. Winsome Guido, [facility] [phone] Associated attestation - Winsome Pan MD - 01/24/2018 9:00 PM CDT Formatting of this note may be different from the original. ATTESTATION I personally performed the torres portions of the E/M visit, discussed case with Nurse Practitioner and concur with documentation of history, physical exam, assessment, and treatment plan unless otherwise noted. Staff name: Winsome Goncalves MD Date: 01/24/2018 I interviewed and examined this patient with oncology ACID PURIFICATION EQUIPMENT OPERATOR and confirmed the history and physical findings outlined below. I have personally reviewed laboratory and imaging studies and discussed results with the patient and medical team. Together we formulated the assessment and recommendations outlined below. A brief summary of the history of the present illness is as follows: Kelvin Zladivar is a 42 y.o. gentleman who presented [...] detailed in the consultation note by oncology ACID PURIFICATION EQUIPMENT OPERATOR and I would refer you to it for additional details with which I concur. I saw and examined the patient and reviewed with oncology ACID PURIFICATION EQUIPMENT OPERATOR. Please refer to the consult note for [...] thymoma/thymic carcinoma, thyroid malignancy. - He is hlfdvaiuwq-iyy-vwgotm ill at this time, therefore we believe [...] been changed back to Isosource. S.O.will utilize [employer] and [employer] to obtain tube feed formula. Interventions ? Support Support: Patient Education, Pt/Family Updates re:POC or DC Plan ? Info or Referral Information or Referral to Community Resources: Safety Net Resources and/or Follow-up Care (Primary SW and Rad Onc SW coordinating radiation treatments to be done in [place]) ? Discharge Planning Discharge Planning: (per Lamont [...] and Availability #1: Significant Other: Britany Penny ([phone]) Does the patient use Medicaid Transportation?: No ? Next Level of Care (Acute Psych discharges only) ? Discharge Disposition Durable Medical Equipment - Selection Complete Service Request Status Selected Specialties Address Phone Number Fax Number [facility] Selected DME Services [phone] [phone] Destination No service has been selected for the patient. Home Care No service has been selected for the patient. Dialysis/Infusion No service has been selected for the patient. Fanny White RN, BSN, [facility] [phone] * Critical Results - Mame Willoughby RN - 02/13/2018 3:10 PM CDT Critical result or procedure called (document test and value, and read back): WBC 0.8 Time MD/ACID PURIFICATION EQUIPMENT OPERATOR Notified: 1512 MD/ACID PURIFICATION EQUIPMENT OPERATOR Name: Dr. Deedee BARNES/ACID PURIFICATION EQUIPMENT OPERATOR Response/Orders Given: No new orders at this [...] multiple calls from [facility] raymundo and Antonio hicks regarding DME set up and delivery. NCM [...] coordinating radiation treatments to be done in [place]) ? Discharge Planning Discharge Planning: (per Lamont with [facility] pt set up for trach supplies and tube feeding supplies) ? Medication Needs Medication Needs: Co-Pay Check ? Financial ? Legal ? Other Disposition ? Expected Discharge Date Expected Discharge Date: 02/14/18 ? Transportation Does the patient need discharge transport arranged?: No Transportation Name, Phone and Availability #1: Significant Other: Britany Penny ([phone]) Does the patient use Medicaid Transportation?: No ? Next Level of Care (Acute Psych discharges only) ? Discharge Disposition Durable Medical Equipment - Selection Complete Service Request Status Selected Specialties Address Phone Number Fax Number [facility] Selected DME Services [phone] [place] [address] Destination No service has been selected for the patient. Home Care No service has been selected for the patient. Dialysis/Infusion No service has been selected for the patient. Fanny White RN, BSN, [facility] [phone] * Case Mgmt DC Plan - Fanny [...] location, limited insurance coverage, and care needs. [facility], [facility], [facility], [facility], [facility], [facility], [facility], and [facility] have all declined. Primary SW investigating coverage for outpatient therapies. Bedside RN and SW have arranged for patient and s.o.to receive teaching at bedside on trach care. Pt will be returning to daily for radiation treatments and per attending physician, pt will f/u with Oncology. [facility] has accepted to provide tube feed supplies and trach care supplies. NCNoah verified with Lamont, from [facility], that portable suction will be delivered to bedside, and the remaining items will be delivered to the home. Tube feed formula is not covered by insurance. NCM spoke with [employer] [facility] , and they could provide 3 cases per month if s.o.is able to pick this up. [facility] for assistance. Covering NCM [...] and Availability #1: Significant Other: Britany Penny ([phone]) Does the patient use Medicaid Transportation?: No ? Next Level of Care (Acute Psych discharges only) ? Discharge Disposition Durable Medical Equipment - Selection Complete Service Request Status Selected Specialties Address Phone Number Fax Number [facility] Selected DME Services [phone] [address] Destination No service has been selected for the patient. Home Care No service has been selected for the patient. Dialysis/Infusion No service has been selected for the patient. Fanny White RN, BSN, [facility] [phone] * Case Mgmt DC Leora Conteh - 02/11/2018 11:31 AM CDT Request for Benefits Received request from [facility] Minna Lovelace to check outpatient PT benefits for patient. Outpatient PT Benefits: Subject to deductible, coinsurance and out of pocket max. Must be prescribed by a physician Deductible: $2500 Deductible Remaining: $0 Coinsurance: 20% OOP Max: $4500 OOP Max met: $2280.43 OOP Remaining: $2219.57 Once OOP Max is met the patient is covered at 100% Leora Fontana Balance Sheet Analyst For further assistance please contact [facility] Minna Lovelace *[phone] * Case Mgmt DC Minna Amezquita - 02/11/2018 11:04 AM CDT Formatting of [...] he is able to tolerate tube feeds. SHAHZAD spoke to RN- she will be working with pt on administrating feeds himself. Pt will have SO come to [facility] for trach teaching. Per bedside RN [...] moved closer to his home. Pt stated [place] would be closest town. SW asked Pt if he would want to stay at [facility], pt declined. Pt's girlfriend will be at [facility] and Saturday for teaching. Will plan for discharge Saturday if pt and SO are comfortable with trach /peg maintainence. SW provided in-network list for outpt PT near his home and explained benefits. SHAHZAD spoke to Ivet Guido, she will arrange for pt to have oncology appointment in [place]. SHAHZAD spoke to Esthela Cantor/onc SHAHZAD. She will explore options for radiation closer to pt's home. SW will continue to follow and assist with discharge planning ? Medication Needs Medication Needs: Co-Pay Check ? Financial ? Legal ? Other Disposition ? Expected Discharge Date Expected Discharge Date: 02/14/18 ? Transportation Does the patient need discharge transport arranged?: No Transportation Name, Phone and Availability #1: Significant Other: Britany Hemalatha ([phone]) Does the patient use Medicaid Transportation?: No [...] Info or Referral voice mail from Britany gadiel 02/11. Called [phone] and unable to leave message as it [...] and Availability #1: Significant Other: Britany Penny ([phone]) Does the patient use Medicaid Transportation?: No [...] patient. Ryan Mcbride RN MSN ONC Nurse Exhibition Organiser Pg [phone] * Case Mgmt DC Plan - Tacos [...] consult. Awaiting sessions from today. SW tasked MANAGER PAPER to check benefits. Patient has limited options for HH at discharge due to the area he lives in ([place], [place]). SNF/IPR Benefits In-Network Copay $0 Deductible remaining [...] Phone and Availability #1: Significant Other: Britany Rameshsharonsuad ([phone]) Does the patient use Medicaid Transportation?: No ? Next Level of Care (Acute Psych discharges only) ? Discharge Disposition [place] Karimi LMSW [phone] (phone) [phone] (pager) * Case Mgmt DC Plan - Hilda Michael - 02/10/2018 2:33 PM CDT Formatting of this note may be different from the original. In-Network IPR and SNF Benefits Summary for Kelvin Zaldivar Requested by: ROBBY Yousif Benefit(s) checked: IPR and SNF Payor: COVENTRY / Plan: COVENTRY PPO / Product Type: PPO / ( ) Learning Solutions Specialist: Crystal Lezama Reference Number: [id number] Pt's Plan Active: Yes Effective Date: 10/28/2017 Benefit Period: Calendar Year Prior Auth Required: Yes: (P: [phone]) SNF/IPR Benefits In-Network Copay $0 Deductible remaining $0 Coinsurance after deductible 80/20 Out of Pocket Max remaining $2216.57 SNF Days/IPR Days remaining 60 This telegraphic typewriter installer provided ROBBY Yousif with a directory of IPRs and SNFs that are in-network with pt's primary payer. Hilda Michael Balance Sheet Analyst For additional assistance, please contact ROBBY Yousif *[phone] * Case Mgmt DC Plan - Tory [...] Phone and Availability #1: Significant Other: Britany Rameshsharonsuad ([phone]) Does the patient use Medicaid Transportation?: No [...] patient. Ryan Mcbride RN MSN ONC Nurse Exhibition Organiser Pg [phone]- [phone] * Transfer - Homa Owen MD - [...] transferred to the ICU on 02/06/18 following CLERICAL OFFICE for progressive hypoxemia and rising O2 requirements [...] XRT on 02/10 AM. Consults: Speech, Onc, Distribution Center Associate, Psych Follow-Up Items: De-escalate abx on 02/10 and complete 7 day course. Activity/Weight bearing status: As tolerated, PT & OT following. Nutrition: Tube feeds; video swallow on 02/10 per Speech Discharge Plan: Transition to Med/Surg status on 02/09. Per special events driver, patient does not have options for home [...] further notification. Homa Owen MD Team Pager [phone] * Case Mgmt DC Plan - Tory Mcbride RN - 02/07/2018 2:10 PM CDT Formatting [...] Supplies, Home Infusion- Enteral-TPN, Home Health [facility] [phone] will need to be notified when patient [...] and Availability #1: Significant Other: Britany Penny ([phone]) Does the patient use Medicaid Transportation?: No ? Next Level of Care (Acute Psych discharges only) ? Discharge Disposition Durable Medical Equipment No service has been selected for the patient. [facility] Destination No service has been selected for the patient. Home Care No service has been selected for the patient. Dialysis/Infusion No service has been selected for the patient. Rayn Mcbride RN MSN ONC Nurse Exhibition Organiser Pg [phone] * Case Mgmt DC Plan - Tory Mcbride RN - 02/06/2018 10:42 AM CDT Formatting [...] Health Patient transferred to ICU overnight. Contacted Hattie with [facility] to inform of patient's status and likely no discharge for next few days. She would inform the [place] branch of this. Contacted [facility] and spoke with Hollis. She relates that they are not in network with patient's insurance. Spoke to Joyce with [facility] [phone]. They doesn't do HH in that area. Spoke with Miracle with [facility] [phone]. They don't go to [facility]. Spoke with Leighann at [address] [phone]. They don't cross into [place]. Spoke with Nitza at [facility] [phone]. She wasn't sure about the insurance but requested information be faxed to [phone] for credentialing manager to review. [facility] called back stating that they do not have staffing to meet patient's needs. Medication Needs ? Financial ? Legal ? Other Disposition ? Expected Discharge Date Expected Discharge Date: 02/10/18 ? Transportation Does the patient need discharge transport arranged?: No Transportation Name, Phone and Availability #1: Significant Other: Britany Penny ([phone]) Does the patient use Medicaid Transportation?: No [...] patient. Ryan Mcbride RN MSN ONC Nurse Exhibition Organiser Pg [phone] * Response Teams - Shira Motley RN - 02/06/2018 3:43 AM CDT Rapid Response Team Progress Note Date: 02/06/2018 Time: 3:43 AM Patient: Kelvin Zaldivar Attending: Vadim Johnson MD Service: Med-Oncology Private Admission Date: 01/24/2018 LOS: 13 days A Code/Rapid Response Timeline Event Report has been created for this patient on 02/06 at 0313 Shira Motley RN * Case Mgmt DC Plan - Molly Jacobs - 02/05/2018 12:13 PM CDT Formatting of [...] on-going "cancer treatments" to be coordinated in [place] at [address]. [address] drive will be easier for them to manage on a spinner hydraulic basis. Discussed the option of staying at [facility] and continue treatments at [facility]. states that she is unable to stay with the pt 24 / ([facility] requirement) and does not have any other [...] an appropriate caregiver after discharge. -->Addendum 1340: [facility] ([phone]) will deliver portable suction to bedside Saturday morning/afternoon, agency would prefer to be present to receive education. Humidified air and formula will be delivered to home address vs Saturday, local [place] branch will work out delivery details with . -->Addendum 5245: Enteral formula is not covered under pts insurance, [facility] will reach out to to discuss OOP costs of formula and coordinate delivery. ? Info or Referral -Confirmed that [facility] does service the [place], [place] area. Faxed referral for trach and enteral supplies to this provider. Awaiting to back from agency regarding delivery and insurance coverage. -[facility] p: : [id number] -[facility] p: ): does not take trach's -[facility] p: : not accepting trach patients -[facility] p; : checking insurance, if in-network agency will accept. Addendum 7905: agency is OON and cannot accept pt. ? Discharge Planning Discharge Planning: Durable Medical Equipment and Supplies, Home Infusion- Enteral-TPN, Home Health ? Medication Needs ? Financial ? Legal ? Other Disposition ? Expected Discharge Date Expected Discharge Date: 02/05/18 ? Transportation Does the patient need discharge transport arranged?: No Transportation Name, Phone and Availability #1: Significant Other: Britany Hemalatha ([phone]) Does the patient use Medicaid Transportation?: No [...] for the patient. Molly Jacobs RN Nurse Exhibition Organiser Pager: [phone] * Procedures (Immed Post or Bedside) - [...] addressed at this time. Medication handout(s) provided. Skyla Aguiar PharmD * Procedures (Immed Post or Bedside) - [...] Post-Procedure Condition: stable Jerzy Wilkinson MD Pager [phone] * Transfer - Yeimi PATRICK Good - 02/01/2018 1:09 PM CDT In-Hospital Transfer Note Admission Diagnosis: Neck mass Admission Date: 01/24/2018 Active Hospital Problem List: Active Problems: Neck mass SVC (superior vena cava obstruction) Leukocytosis Hyponatremia Tobacco abuse Diagnosis unknown Hospital Course: 42 y.o. male with a PMH of tobaccoism with ~30 pack year hx. About 3w ago developed dysphagia & voice hoarseness; evaluated by ENT in [place] who noted b/l paralyzed vocal cords. CT [...] Discharge Plan: ongoing Latisha Solano APRN Pager [phone] M2 team pager (2nd call/nights) [phone] * Care Plan - Radha Torres RN [...] Other Patient lives in a private home ([place], [place]) with his spouse, Britany, and his daughter. There are 2 steps to enter the home and home is one level. 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 Disposition ? Expected Discharge Date Expected Discharge Date: 02/05/18 ? Transportation Does the patient need discharge transport arranged?: No Transportation Name, Phone and Availability #1: Significant Other: Britany Penny ([phone]) Does the patient use Medicaid Transportation?: No ? Next Level of Care (Acute Psych discharges only) ? Discharge Disposition Tacos Karimi, [facility] [phone] (phone) [phone] (pager) * Care Plan - Lashandaalexandra Konrad - 01/27/2018 11:19 AM CDT Problem: Tobacco Use Goal: Knowledge of tobacco-use cessation methods Outcome: Goal Ongoing [facility] CONSULTATION ASSESSMENT/RECOMMENDATIONS Patient was referred for [facility] consultation Tobacco Use Treatment Practical Counseling [...] after discharge. Post discharge support referral: Declined [facility] Tobacco Quitline due to inability to speak currently. Provided telephone contact information. [facility] Educational Material: Accepted History of Present Illness [...] can be of further assistance, please call [facility] [phone] * Anesthesia Post Op Day 1 - Lexy Charlton SRNA - 01/25/2018 12:46 PM CDT Formatting of this note may be different from the original. Anesthesia Follow-Up Evaluation: Post-Procedure Day One Name: Kelvin Zaldivar : 1975 Age: 42 y.o. Sex : male Procedure Date: 01/24/2018 Procedure: Procedure(s) with comments: TRACHEOSTOMY BRONCHOSCOPY Through tracheostomy - CPT 88955 Physical Assessment Height: 201.2 cm (79.2") Weight: [...] Units/ sodium bicarbonate 650 mg(# ) PRN (Warp Clamper from Rx), potassium chloride SR PRN OR potassium chloride PRN , sodium phosphate IVPB PRN (Warp Clamper from Rx) AND Phosphorus DAILY AM AND [...] Implants: None Complications: none Dispo: Stable to [facility] Mine Luna MD Pager [phone] ATTESTATION I was present for the entire [...] RN - 01/24/2018 12:28 PM CDT 1230: CLERICAL OFFICE follow up complete. Pt resting comfortably, no signs of acute respiratory distress. Spoke with primary RNJocelyne. No current concerns at this time. Patient to head to OR soon. * Case Mgmt DC Plan - Fanny Burrell - 01/24/2018 11:42 AM CDT Case [...] of pt's visitors. Provided pt with this [facility]'s business card with contact information. Pt resting in bed. Able to answer all questions. - Pt lives in a private home with his S.O., Britany, and his daughter. There are 2 steps to enter the home and home is one level. 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 Pt is able to drive. Pt has no past medical history prior to this encounter and was on no medications. This is pt's first hospitalization. Pt's S.O. will drive him home on DC. - Pt does not have a PCP. Pt saw a Dr. Yun with ENT in [place], [place] prior to admission. - Pt does not own any DME. Has never had HH services. Has never stayed in a SNF / IPR /LTACH. No history of home infusions. - Pt has [employer] insurance through his employer. Pt reports he would use the [facility] in [place], [place] on DC. Plan Plan: CM Assessment, Discharge Planning for Home Anticipated, Assist PRN with /[facility] Services Discharge Plan: DC Date / final needs undetermined at this time. Pt going to OR today with ENT for likely trach. This [facility] discussed potential DC needs of HH and trach care on DC. Will continue to follow closely for DC Planning. Patient Address/Phone [address] [facility] [address] (home) Emergency Contact Extended Emergency Contact Information Primary Emergency Contact: Britany Penny [facility] Mobile Relation: Significant Other Healthcare Directive Transportation Does the patient need discharge transport arranged?: No Transportation Name, Phone and Availability #1: Significant Other: Britany Penny ([phone]) Does the patient use Medicaid Transportation?: No [...] Resources ? Coverage Primary Insurance: Commercial insurance ([employer]) Secondary Insurance: No insurance Additional Coverage: RX [...] ? Outpatient Therapy PT: No OT: No AREA OPERATIONS DIRECTOR: No ? [facility] SNF: No NH: No ? Inpatient Rehab IPR: No ? [facility] LTACH: No ? Acute Hospital Stay Acute Hospital Stay: No KAUR Duque, RN Nurse Exhibition Organiser - Med 1 Service Pager: [phone] * Response Teams - Michele Mccall RN - 01/24/2018 9:42 AM CDT Rapid Response Team Progress Note Date: 01/24/2018 Time: 9:47 AM Patient: Kelvin Zaldivar Attending: Michele Alejandra DO Service: Med 2041 Admission Date: 01/24/2018 LOS: 0 days A Code/Rapid Response Timeline Event Report has been created for this patient on 01/24 at 0940. CLERICAL OFFICE called for evaluation of transport to ICU for closer monitoring of airway. Pt planned for ENT surgery today. After discussion between Dr. Flores and Dr. Hooper, plan will be to admit patient to ICU following procedure. Ok for patient to remain in current level of care until time of procedure. Primary care RN updated, ok with plan. Please call CLERICAL OFFICE for any further concern or changes in patient condition. The Attending physician, Dr. Alejandra, was present during this event. Michele Mccall, RN * Care Plan - Dennis Romero [...] CDT Transfer accepted from the ER at [facility] in [place]. Patient has no significant past medical history. [...] Performing Laboratory [facility] [address] [place] [address] * MAGNESIUM (02/14/2018 2:10 AM) Component Value Ref Range Magnesium 1.7 1.6 - 2.6 mg/dL Specimen Performing Laboratory [facility] [address] [place] [id number] * COMPREHENSIVE METABOLIC PANEL (02/14/2018 2:10 AM) [...] Performing Laboratory [facility] [address] [place] [address] * CBC AND DIFF (02/14/2018 2:10 AM) [...] Manual Specimen Performing Laboratory Blood [facility] [address] [place] [address] * CBC (02/13/2018 2:30 PM) Component Value [...] [place] Specimen Performing Laboratory [facility] [address] [place] [address] * PHOSPHORUS (02/13/2018 3:25 AM) Component Value Ref Range Phosphorus 3.1 2.0 - 4.0 MG/DL Specimen Performing Laboratory Blood [facility]IN [facility] [address] [place] [address] * MAGNESIUM (02/13/2018 3:25 AM) Component Value Ref Range Magnesium 1.7 1.6 - 2.6 mg/dL Specimen Performing Laboratory Blood MAIN [facility] [address] [place] [address] * COMPREHENSIVE METABOLIC PANEL (02/13/2018 3:25 AM) [...] Specimen Performing Laboratory Blood [facility] [address] [place] [address] * CBC AND DIFF (02/13/2018 3:25 AM) [...] K/UL Specimen Performing Laboratory [facility] [address] [place] [address] * CULTURE-URINE W/SENSITIVITY (02/12/2018 4:45 AM) Component Value Ref Range Battery Name URINE CULTURE Specimen Description URINE Special Requests NONE Culture NO GROWTH Report Status FINAL 02/13/2018 Specimen Performing Laboratory Urine MAIN LAB [address] [place] [address] * PHOSPHORUS (02/12/2018 3:45 AM) Component Value Ref Range Phosphorus 2.7 2.0 - 4.0 MG/DL Specimen Performing Laboratory Blood MA[facility] [address] [place], [place] [id number] * MAGNESIUM (02/12/2018 3:45 AM) Component Value Ref Range Magnesium 1.7 1.6 - 2.6 mg/dL Specimen Performing Laboratory Blood [facility] [address] [place] [address] * COMPREHENSIVE METABOLIC PANEL (02/12/2018 3:45 AM) [...] Specimen Performing Laboratory [facility] [address] [place] [address] * CBC AND DIFF (02/12/2018 3:45 AM) [...] Specimen Performing Laboratory [facility] [address] [place] [address] * CULTURE-BLOOD W/SENSITIVITY (02/11/2018 2:10 PM) Component Value Ref Range Battery Name BLOOD CULTURE Specimen Description BLOOD LEFT ANTECUBITAL Special Requests NONE Culture NO GROWTH 5 DAYS Report Status FINAL 02/17/2018 Specimen Performing Laboratory [facility] [address] [place] [address] * CULTURE-BLOOD W/SENSITIVITY (02/11/2018 2:08 PM) Component Value Ref Range Battery Name BLOOD CULTURE Specimen Description BLOOD LEFT PORT Special Requests NONE Culture NO GROWTH 5 DAYS Report Status FINAL 02/17/2018 Specimen Performing Laboratory [facility] [address] [place] [address] * PHOSPHORUS (02/11/2018 5:11 AM) Component Value Ref Range Phosphorus 3.0 2.0 - 4.0 MG/DL Specimen Performing Laboratory [facility] [address] [place] [address] * MAGNESIUM (02/11/2018 5:11 AM) Component Value Ref Range Magnesium 1.8 1.6 - 2.6 mg/dL Specimen Performing Laboratory [facility] [address] [place] [address] * COMPREHENSIVE METABOLIC PANEL (02/11/2018 5:11 AM) [...] Specimen Performing Laboratory [facility] [address] [place] [address] * CBC AND DIFF (02/11/2018 5:11 AM) [...] Performing Laboratory [facility] [address] [place] [address] * SWALLOW MOTION SERIES (02/10/2018 11:55 AM) [...] Specimen Performing Laboratory [facility] [address] [place] [address] * MAGNESIUM (02/10/2018 1:58 AM) Component Value Ref Range Magnesium 1.9 1.6 - 2.6 mg/dL Specimen Performing Laboratory [facility] [address] [place] [address] * COMPREHENSIVE METABOLIC PANEL (02/10/2018 1:58 AM) [...] Specimen Performing Laboratory [facility] [address] [place] [address] * CBC AND DIFF (02/10/2018 1:58 AM) [...] Specimen Performing Laboratory [facility] [address] [place] [address] * VRE SCREEN (02/10/2018 1:55 AM) Component Value Ref Range Battery Name VRE SCREEN Specimen Description PERIRECTAL SWAB Special Requests NONE Culture NO VRE ISOLATED Report Status FINAL 02/11/2018 Specimen Performing Laboratory Perirectal Swab MAIN LAB [address] [place] [address] * PHOSPHORUS (02/09/2018 2:21 AM) Component Value Ref Range Phosphorus 3.1 2.0 - 4.0 MG/DL Specimen Performing Laboratory [facility] [address] [place] [address] * MAGNESIUM (02/09/2018 2:21 AM) Component Value Ref Range Magnesium 1.9 1.6 - 2.6 mg/dL Specimen Performing Laboratory [facility] [address] [place] [address] * COMPREHENSIVE METABOLIC PANEL (02/09/2018 2:21 AM) [...] Specimen Performing Laboratory [facility] [address] [place] [address] * CBC AND DIFF (02/09/2018 2:21 AM) [...] Performing Laboratory [facility] [address] [place] [address] * ABDOMEN AP ONLY (02/08/2018 10:07 AM) [...] Specimen Performing Laboratory [facility] [address] [place] [address] * PHOSPHORUS (02/08/2018 3:35 AM) Component Value Ref Range Phosphorus 3.3 2.0 - 4.0 MG/DL Specimen Performing Laboratory [facility] [address] [place] [address] * MAGNESIUM (02/08/2018 3:35 AM) Component Value Ref Range Magnesium 2.0 1.6 - 2.6 mg/dL Specimen Performing Laboratory [facility] [address] [place] [address] * COMPREHENSIVE METABOLIC PANEL (02/08/2018 3:35 AM) [...] Specimen Performing Laboratory [facility] [address] [place] [address] * CBC AND DIFF (02/08/2018 3:35 AM) [...] K/UL Specimen Performing Laboratory Blood [facility] [address] [place] [address] * SODIUM-URINE RANDOM (02/07/2018 11:56 AM) Component Value Ref Range Sodium, Random 35 MMOL/L Specimen Performing Laboratory Urine MAIN LAB [address] [place], [place] [id number] * CREATININE-URINE RANDOM (02/07/2018 11:56 AM) Component Value Ref Range Creatinine, Random 79 MG/DL Specimen Performing Laboratory Urine MAIN LAB [address] [place], [place] [id number] * URIC ACID (02/07/2018 4:40 AM) Component Value Ref Range Uric Acid 6.5 4.0 - 8.0 MG/DL Specimen Performing Laboratory Blood [facility] [address] [place] [address] * PHOSPHORUS (02/07/2018 4:40 AM) Component Value Ref Range Phosphorus 4.8 (H) 2.0 - 4.0 MG/DL Specimen Performing Laboratory Blood [facility] [address] [place] [address] * MAGNESIUM (02/07/2018 4:40 AM) Component Value Ref Range Magnesium 2.1 1.6 - 2.6 mg/dL Specimen Performing Laboratory Blood [facility] [address] [place], [place] [id number] * COMPREHENSIVE METABOLIC PANEL (02/07/2018 4:40 AM) [...] Specimen Performing Laboratory [facility] [address] [place] [address] * PROTIME INR (PT) (02/07/2018 4:40 AM) Component Value Ref Range INR 1.6 (H) 0.8 - 1.2 Specimen Performing Laboratory [facility] [address] [place] [address] * CBC AND DIFF (02/07/2018 4:40 AM) [...] Performing Laboratory [facility] [address] [place] [address] * 2-D + DOPPLER ECHOCARDIOGRAM (02/06/2018 2:36 [...] 0.77 E/E' ratio 8.22 CV ECHO PV BILINGUAL SPANISH INBOUND SALES Amber RN LV mass 81.37 96 - 200 g RWT 0.54 <=0.42 TV rest pulmonary artery NA mmHg pressure Cardiology Ultrasound Siemens [id number] Machine Left Ventricle Mass Index 40.48 50 [...] is of uncertain chronicity. Finalized by Saundra Alejandra M.D. on 02/06/2018 3:21 PM. Dictated by Saundra Alejandra M.D. on 02/06/2018 3:07 PM. Narrative Bilateral [...] is of uncertain chronicity. Finalized by Saundra Alejandra M.D. on 02/06/2018 3:21 PM. Dictated by Saundra Alejandra M.D. on 02/06/2018 3:07 PM. * BLOOD GASES, ARTERIAL (02/06/2018 5:56 AM) Component Value Ref Range pH-Arterial 7.44 7.35 - 7.45 pCO2-Arterial 43 35 - 45 MMHG pO2-Arterial 63 (L) 80 - 100 MMHG Base Excess-Arterial 4.3 MMOL/L O2 Sat-Arterial 92.0 (L) 95 - 99 % Sugykzpwbve-ETJ-[id number] 28.1 (H) 21 - 28 MMOL/L Specimen Performing Laboratory Blood, arterial - Blood MAIN LAB [address] [place] [address] * CULTURE-BLOOD W/SENSITIVITY (02/06/2018 5:56 AM) Component Value Ref Range Battery Name BLOOD CULTURE Specimen Description BLOOD LEFT ART STICK Special Requests NONE Culture NO GROWTH 5 DAYS Report Status FINAL 02/12/2018 Specimen Performing Laboratory Blood MAIN [facility] [address] [place], [place] [id number] * STREPTOCOCCUS PNEUMO AG, URINE (02/06/2018 5:30 AM) Component Value Ref Range Battery Name STREP PNEUMO AG, UR Specimen Description URINE Special Requests NONE Antigen NEGATIVE Report Status FINAL 02/06/2018 Specimen Performing Laboratory Urine MAIN LAB [address] [place], [place] [id number] * LEGIONELLA ANTIGEN URINE,RAN (02/06/2018 5:30 AM) Component Value Ref Range Battery Name LEGIONELLA URINE ANTIGEN Specimen Description URINE Special Requests NONE Antigen NEGATIVE Report Status FINAL 02/06/2018 Specimen Performing Laboratory Urine MAIN LAB [address] [place], [place] [id number] * CULTURE-URINE W/SENSITIVITY (02/06/2018 5:30 AM) Component Value Ref Range Battery Name URINE CULTURE Specimen Description URINE Special Requests NONE Culture NO GROWTH Report Status FINAL 02/07/2018 Specimen Performing Laboratory Urine MAIN LAB [address] [place], [place] [id number] * CULTURE-BLOOD W/SENSITIVITY (02/06/2018 5:07 AM) Component Value Ref Range Battery Name BLOOD CULTURE Specimen Description BLOOD LEFT PORT Special Requests NONE Culture NO GROWTH 5 DAYS Report Status FINAL 02/12/2018 Specimen Performing Laboratory [facility] [address] [place], [place] [id number] * GRAM STAIN (02/06/2018 4:15 AM) Component Value Ref Range Battery Name GRAM STAIN Specimen Description TRACHEAL ASPIRATE Special Requests NONE Gram Stain GREATER THAN 25/LPF NEUTROPHILS 10-25/LPF SQUAMOUS EPITHELIAL CELLS MANY MIXED BACTERIA Report Status FINAL 02/06/2018 Specimen Performing Laboratory Tracheal Aspirate MAIN LAB [address] [place], [place] [id number] * CULTURE-RESP,LOWER W/SENSITIVITY (02/06/2018 4:15 AM) Component Value Ref Range Battery Name LOWER RESP CULTURE Specimen Description TRACHEAL ASPIRATE Special Requests NONE Direct Gram Stain GREATER THAN 25/LPF NEUTROPHILS 10-25/LPF SQUAMOUS EPITHELIAL CELLS MANY MIXED BACTERIA Culture Heavy growth NORMAL OROPHARYNGEAL WHIT Report Status FINAL 02/08/2018 Specimen Performing Laboratory Tracheal Aspirate MAIN LAB [address] [place] [address] * URIC ACID (02/06/2018 3:58 AM) Component Value Ref Range Uric Acid 8.3 (H) 4.0 - 8.0 MG/DL Specimen Performing Laboratory MAIN LAB [address] [place] [address] * LACTIC ACID (BG - RAPID LACTATE) (02/06/2018 3:58 AM) Component Value Ref Range Lactic Acid,BG 1.4 0.5 - 2.0 MMOL/L Specimen Performing Laboratory Blood MAIN LAB [address] [place], [place] [id number] * PROCALCITONIN (02/06/2018 3:58 AM) Component Value Ref Range Procalcitonin 0.25 (H) <0.10 NG/ML Specimen Performing Laboratory Blood [facility] [address] [place], [place] [id number] * CBC (02/06/2018 3:58 AM) Component Value [...] FL Specimen Performing Laboratory Blood [facility] [address] [place] [address] * COMPREHENSIVE METABOLIC PANEL (02/06/2018 3:58 AM) [...] questions. Specimen Performing Laboratory Blood MAIN LAB [address] [place] [address] * TROPONIN-I (02/06/2018 3:58 AM) Component Value Ref Range Troponin-I 0.03 0.0 - 0.05 NG/ML Specimen Performing Laboratory Blood MAIN [facility] [address] [place] [address] * PHOSPHORUS (02/06/2018 3:58 AM) Component Value Ref Range Phosphorus 4.8 (H) 2.0 - 4.0 MG/DL Specimen Performing Laboratory Blood [facility] [address] [place] [address] * MAGNESIUM (02/06/2018 3:58 AM) Component Value Ref Range Magnesium 2.0 1.6 - 2.6 mg/dL Specimen Performing Laboratory Blood [facility]IN [facility] [address] [place] [address] * BNP (B-TYPE NATRIURETIC PEPTI) (02/06/2018 3:58 AM) Component Value Ref Range B Type Natriuretic 153.0 (H) 0 - 100 PG/ML Peptide Specimen Performing Laboratory Blood [facility]IN [facility] [address] [place] [address] * PHOSPHORUS (02/06/2018 3:34 AM) Component Value Ref Range Phosphorus 4.7 (H) 2.0 - 4.0 MG/DL Specimen Performing Laboratory Blood [facility]IN [facility] [address] [place] [address] * MAGNESIUM (02/06/2018 3:34 AM) Component Value Ref Range Magnesium 2.0 1.6 - 2.6 mg/dL Specimen Performing Laboratory Blood [facility] [address] [place] [address] * COMPREHENSIVE METABOLIC PANEL (02/06/2018 3:34 AM) [...] Specimen Performing Laboratory Blood [facility] [address] [place] [address] * CBC (02/06/2018 3:34 AM) Component Value [...] FL Specimen Performing Laboratory Blood [facility]IN LAB [address] [place] [address] * POC IONIZED CALCIUM (02/06/2018 3:27 AM) Component Value Ref Range Ionized Calcium-POC 1.23 1.0 - 1.3 MMOL/L Specimen Performing Laboratory MAIN LAB [address] [place] [address] * POC SODIUM (02/06/2018 3:27 AM) Component Value Ref Range Sodium-POC 138 137 - 147 MMOL/L Specimen Performing Laboratory MAIN LAB [address] [place], [place] [id number] * POC POTASSIUM (02/06/2018 3:27 AM) Component Value Ref Range Potassium-POC 4.3 3.5 - 5.1 MMOL/L Specimen Performing Laboratory MAIN LAB [address] [place], [place] [id number] * POC HEMATOCRIT (02/06/2018 3:27 AM) Component Value Ref Range Hemoglobin POC 13.6 13.5 - 16.5 GM/DL Hematocrit POC 40.0 40 - 50 % Specimen Performing Laboratory MAIN LAB [address] [place], [place] [id number] * POC BLOOD GAS ARTERIAL (02/06/2018 3:27 AM) Component Value Ref Range PH-ART-POC 7.50 (H) 7.35 - 7.45 VWB4-GSM-EXF 37 35 - 45 MMHG PO2-ART-POC 55 (L) 80 - 100 MMHG Base Ex-ART-POC 6.0 MMOL/L O2 Sat-ART-POC 91.0 (L) 95 - 99 % Umqhwualxfb-TAJ-LSW 28.7 (H) 21 - 28 MMOL/L Specimen Performing Laboratory MAIN LAB [address] [place], [place] [id number] * POC GLUCOSE (02/06/2018 3:21 AM) Component Value Ref Range Glucose, POC 105 (H) 70 - 100 MG/DL Specimen Performing Laboratory MAIN LAB [address] [place], [place] [id number] * BLOOD BANK SAMPLE HOLD (02/06/2018 3:12 AM) Component Value Ref Range BB Sample hold IN LAB Specimen Performing Laboratory MAIN LAB [address] [place], [place] [id number] * LACTIC ACID (BG - RAPID LACTATE) (02/06/2018 3:12 AM) Component Value Ref Range Lactic Acid,BG 1.4 0.5 - 2.0 MMOL/L Specimen Performing Laboratory Blood [facility] [address] [place] [address] * PTT (APTT) (02/06/2018 3:12 AM) Component Value Ref Range APTT 28.7 21.0 - 39.0 SEC Specimen Performing Laboratory Blood [facility] [address] [place] [address] * PROTIME INR (PT) (02/06/2018 3:12 AM) Component Value Ref Range INR 1.1 0.8 - 1.2 Specimen Performing Laboratory Blood [facility]IN [facility] [address] [place] [address] * COMPREHENSIVE METABOLIC PANEL (02/06/2018 2:20 AM) [...] questions. Specimen Performing Laboratory Blood [facility] [address] [place] [address] * CBC AND DIFF (02/06/2018 2:20 AM) [...] Performing Laboratory [facility] [address] [place] [address] * CHEST SINGLE VIEW (02/06/2018 2:13 AM) [...] CONTRAST:50 mL of Isovue 300 CATHETER: 18 Beninese Ross G tube COMPLICATIONS: None TECHNIQUE/FINDINGS: Following [...] over the wire into the stomach.A 18 Beninese Ross gastrostomy tube was placed over the [...] 50 mL of Isovue 300 CATHETER: 18 Beninese Ross G tube COMPLICATIONS: None TECHNIQUE/FINDINGS: Following [...] the wire into the stomach. A 18 Beninese Ross gastrostomy tube was placed over the [...] Performing Laboratory [facility] [address] [place] [address] * CBC AND DIFF (02/05/2018 4:50 AM) [...] Specimen Performing Laboratory Blood [facility] [address] [place] [address] * COMPREHENSIVE METABOLIC PANEL (02/04/2018 2:58 AM) [...] Specimen Performing Laboratory Blood [facility] [address] [place] [address] * CBC AND DIFF (02/04/2018 2:58 AM) [...] Performing Laboratory [facility] [address] [place] [address] * VRE SCREEN (02/03/2018 10:27 PM) Component Value Ref Range Battery Name VRE SCREEN Specimen Description PERIRECTAL SWAB Special Requests NONE Culture NO VRE ISOLATED Report Status FINAL 02/05/2018 Specimen Performing Laboratory Perirectal Swab MAIN LAB [address] [place] [address] * IR CENTRAL VENOUS CATHETER (02/03/2018 8:43 [...] M.D. on 02/04/2018 10:40 AM. Dictated by Eidnson Wilkinson M.D. on 02/04/2018 10:39 AM. Addendum [...] and upper superior vena cava. A 5 Beninese vascular sheath and Kumpe catheter were then [...] and upper superior vena cava. A 5 Beninese vascular sheath and Kumpe catheter were then [...] Specimen Performing Laboratory Blood [facility] [address] [place] [address] * CBC AND DIFF (02/03/2018 6:57 AM) [...] Specimen Performing Laboratory Blood [facility] [address] [place] [address] * TROPONIN-I (02/02/2018 2:46 AM) Component Value Ref Range Troponin-I 0.02 0.0 - 0.05 NG/ML Specimen Performing Laboratory Blood [facility] [address] [place] [address] * COMPREHENSIVE METABOLIC PANEL (02/02/2018 2:46 AM) [...] Performing Laboratory [facility] [address] [place] [address] * CBC AND DIFF (02/02/2018 2:46 AM) [...] Specimen Performing Laboratory Blood [facility] [address] [place] [address] * COMPREHENSIVE METABOLIC PANEL (02/01/2018 3:43 AM) [...] Specimen Performing Laboratory Blood [facility] [address] [place] [address] * CBC AND DIFF (02/01/2018 3:43 AM) [...] K/UL Specimen Performing Laboratory [facility] [address] [place] [address] * PHOSPHORUS (01/31/2018 3:53 AM) Component Value Ref Range Phosphorus 4.9 (H) 2.0 - 4.0 MG/DL Specimen Performing Laboratory Blood [facility] [address] [place] [address] * MAGNESIUM (01/31/2018 3:53 AM) Component Value Ref Range Magnesium 2.1 1.6 - 2.6 mg/dL Specimen Performing Laboratory Blood [facility] [address] [place] [address] * COMPREHENSIVE METABOLIC PANEL (01/31/2018 3:53 AM) [...] Performing Laboratory [facility] [address] [place] [address] * CBC AND DIFF (01/31/2018 3:53 AM) [...] Performing Laboratory [facility] [address] [place] [address] * ABDOMEN AP ONLY (01/30/2018 8:14 AM) [...] Specimen Performing Laboratory Blood [facility] [address] [place] [address] * MAGNESIUM (01/30/2018 4:21 AM) Component Value Ref Range Magnesium 1.9 1.6 - 2.6 mg/dL Specimen Performing Laboratory Blood [facility] [address] [place] [address] * COMPREHENSIVE METABOLIC PANEL (01/30/2018 4:21 AM) [...] Performing Laboratory [facility] [address] [place] [address] * CBC AND DIFF (01/30/2018 4:21 AM) [...] Performing Laboratory [facility] [address] [place] [address] * MISCELLANEOUS SURGICAL PATHOLOGY REFERENCE LAB TEST (01/29/2018 10:00 AM) Component Value Ref Range Test NUT BU IHC Reference Lab PERFORMED AT [facility] [employer] Results Ref Lab RESULTS WILL BW REPORTED IN AN ADDENDUM Specimen Mail SLIDES [id number] Specimen Performing Laboratory REFERENCE LAB * CBC [...] Performing Laboratory [facility] [address] [place] [address] * COMPREHENSIVE METABOLIC PANEL (01/29/2018 4:07 AM) [...] Specimen Performing Laboratory Blood [facility] [address] [place] [address] * PHOSPHORUS (01/29/2018 4:07 AM) Component Value Ref Range Phosphorus 4.4 (H) 2.0 - 4.0 MG/DL Specimen Performing Laboratory Blood MAIN LAB [address] [place], [place] [id number] * MAGNESIUM (01/29/2018 4:07 AM) Component Value Ref Range Magnesium 2.0 1.6 - 2.6 mg/dL Specimen Performing Laboratory Blood [facility] [address] [place] [address] * CBC AND DIFF (01/28/2018 3:51 AM) [...] K/UL Specimen Performing Laboratory Blood [facility] [address] [place] [address] * COMPREHENSIVE METABOLIC PANEL (01/28/2018 3:51 AM) [...] questions. Specimen Performing Laboratory Blood [facility] [address] [place] [address] * PHOSPHORUS (01/28/2018 3:51 AM) Component Value Ref Range Phosphorus 3.8 2.0 - 4.0 MG/DL Specimen Performing Laboratory Blood [facility] [address] [place], [place] [id number] * MAGNESIUM (01/28/2018 3:51 AM) Component Value Ref Range Magnesium 2.0 1.6 - 2.6 mg/dL Specimen Performing Laboratory Blood [facility]IN [facility] [address] [place], [place] [id number] * CBC AND DIFF (01/27/2018 3:57 AM) [...] Performing Laboratory [facility] [address] [place] [address] * COMPREHENSIVE METABOLIC PANEL (01/27/2018 3:57 AM) [...] Performing Laboratory [facility] [address] [place], [place] [address] * PHOSPHORUS (01/27/2018 3:57 AM) Component Value Ref Range Phosphorus 2.8 2.0 - 4.0 MG/DL Specimen Performing Laboratory [facility] [address] [place] [address] * MAGNESIUM (01/27/2018 3:57 AM) Component Value Ref Range Magnesium 1.9 1.6 - 2.6 mg/dL Specimen Performing Laboratory [facility] [address] [place] [address] * CORTISOL,RANDOM (01/26/2018 5:50 AM) Component Value Ref Range Cortisol, Random 26.6 (H) 5.0 - 20.0 MCG/DL Specimen Performing Laboratory [facility] [address] [place] [address] * CHEST SINGLE VIEW (01/26/2018 1:05 AM) [...] Specimen Performing Laboratory [facility] [address] [place] [address] * PROTIME INR (PT) (01/26/2018 1:05 AM) Component Value Ref Range INR 1.3 (H) 0.8 - 1.2 Specimen Performing Laboratory [facility] [address] [place] [address] * CBC AND DIFF (01/26/2018 1:05 AM) [...] Specimen Performing Laboratory [facility] [address] [place] [address] * COMPREHENSIVE METABOLIC PANEL (01/26/2018 1:05 AM) [...] Specimen Performing Laboratory [facility] [address] [place] [address] * PHOSPHORUS (01/26/2018 1:05 AM) Component Value Ref Range Phosphorus 3.2 2.0 - 4.0 MG/DL Specimen Performing Laboratory [facility] [address] [place] [address] * MAGNESIUM (01/26/2018 1:05 AM) Component Value Ref Range Magnesium 1.9 1.6 - 2.6 mg/dL Specimen Performing Laboratory [facility] [address] [place] [address] * BLOOD GASES, PERIPHERAL VENOUS (01/25/2018 6:20 PM) Component Value Ref Range pH-Venous 7.37 7.30 - 7.40 PCO2-Venous 41 36 - 50 MMHG PO2-Venous 58 (H) 33 - 48 MMHG Base Deficit-Venous 1.4 MMOL/L O2 Sat-Venous 87.3 (H) 55 - 71 % Ekwtouihqts-QOB-Jlr 23.0 MMOL/L Specimen Performing Laboratory Blood, venous - Blood [facility] [address] [place] [address] * POC BLOOD GAS ARTERIAL (01/25/2018 3:14 PM) Component Value Ref Range PH-ART-POC 7.47 (H) 7.35 - 7.45 ZLP7-QZW-ZEF 29 (L) 35 - 45 MMHG PO2-ART-POC 62 (L) 80 - 100 MMHG Base Def-ART-POC 3.0 MMOL/L O2 Sat-ART-POC 93.0 (L) 95 - 99 % Azrukxchtoq-XUQ-ZMC 20.6 (L) 21 - 28 MMOL/L Specimen Performing Laboratory [facility] [address] [place] [address] * ABDOMEN AP ONLY (01/25/2018 10:39 AM) [...] Specimen Performing Laboratory [facility] [address] [place] [address] * CBC AND DIFF (01/25/2018 3:16 AM) [...] Specimen Performing Laboratory [facility] [address] [place] [address] * PHOSPHORUS (01/25/2018 3:16 AM) Component Value Ref Range Phosphorus 5.6 (H) 2.0 - 4.0 MG/DL Specimen Performing Laboratory [facility] [address] [place] [address] * MAGNESIUM (01/25/2018 3:16 AM) Component Value Ref Range Magnesium 2.0 1.6 - 2.6 mg/dL Specimen Performing Laboratory [facility] [address] [place] [address] * SURGICAL PATHOLOGY (01/24/2018 6:05 PM) Component Value Ref Range PATHOLOGY REPORT [facility] [email or web address] Department of Pathology and Laboratory Medicine [address] [place] [address] Surgical Pathology Office:[phone]:[phone] SURGICAL PATHOLOGY REPORT NAME: KELVIN ZALDIVAR SURG PATH #: [id number] MR #: [id number] SPECIMEN CLASS: SR BILLING #: [id number] ALT ID #:LOCATION: [id number] DATE OF PROCEDURE: [...] for NUT performed on block A2 at [facility] is negative in the tumor cells. ALTAGRACIA [...] immunostain for NUT is being performed at [facility] and be reported in an addendum PD-L1: Results: % Positive: 20% PD-L1 test name: DAKO PD-L1 IHC 22C3 pharmDX Cell types evaluated: Tumor cells Pursuant to the [employer] Program at the [facility] Pathology Department, selected slides from this case [...] of Pathology and Laboratory Medicine of the [facility] ([employer]) in compliance with CLIA'88 regulations.Some [...] of Pathology and Laboratory Medicine of the [facility].It has not been cleared or approved by the FDA.The FDA has determined that such clearance or approval is not necessary. Specimen Performing Laboratory [facility] RESULTS * OSMOLALITY-URINE RANDOM (01/24/2018 6:00 PM) Component Value Ref Range Osmolality-Urine 847 50 - 1,400 MOS/KG Specimen Performing Laboratory U[facility] [address] [place] [address] * CREATININE-URINE RANDOM (01/24/2018 6:00 PM) Component Value Ref Range Creatinine, Random 222 MG/DL Specimen Performing Laboratory [facility] [address] [place] [address] * SODIUM-URINE RANDOM (01/24/2018 6:00 PM) Component Value Ref Range Sodium, Random 146 MMOL/L Specimen Performing Laboratory [facility] [address] [place] [address] * URINALYSIS, MICROSCOPIC (01/24/2018 6:00 PM) Component Value Ref Range WBCs,UA 0-2 0 - 2 /HPF RBCs,UA 0-2 0 - 3 /HPF MucousUA TRACE Specimen Performing Laboratory [facility] [address] [place] [address] * URINALYSIS DIPSTICK (01/24/2018 6:00 PM) Component Value Ref Range Color,UA YELLOW Turbidity,UA 1+ (A) CLEAR-CLEAR Specific [place]-Urine 1.029 1.003 - 1.035 pH,UA 5.0 5.0 - 8.0 Protein,UA NEG NEG-NEG Glucose,UA NEG NEG-NEG Ketones,UA 1+ (A) NEG-NEG Bilirubin,UA NEG NEG-NEG Blood,UA NEG NEG-NEG Urobilinogen,UA NORMAL NORM-NORMAL Nitrite,UA NEG NEG-NEG Leukocytes,UA NEG NEG-NEG Urine Ascorbic Acid, UA NEG NEG-NEG Specimen Performing Laboratory Urine [facility] [address] [place] [address] * IR PERCUTANEOUS BIOPSY (01/24/2018 5:51 PM) Specimen Performing Laboratory [facility] RAD RESULTS Impressions Successful US-guided biopsy of right supraclavicular mass. IOseas M.D., the attending interventional radiologist, performed the [...] Successful US-guided biopsy of right supraclavicular mass. IOseas M.D., the attending interventional radiologist, performed the [...] - 5.00 MCU/ML Specimen Performing Laboratory [facility] [address] [place] [address] * PHOSPHORUS (01/24/2018 5:30 PM) Component Value Ref Range Phosphorus 3.9 2.0 - 4.0 MG/DL Specimen Performing Laboratory [facility] [address] [place] [address] * MAGNESIUM (01/24/2018 5:30 PM) Component Value Ref Range Magnesium 1.9 1.6 - 2.6 mg/dL Specimen Performing Laboratory [facility] [address] [place] [address] * BASIC METABOLIC PANEL (01/24/2018 5:30 PM) [...] Specimen Performing Laboratory [facility] [address] [place] [address] * CBC (01/24/2018 5:30 PM) Component Value [...] Specimen Performing Laboratory [facility] [address] [place] [address] * FLOW CYTOMETRY (01/24/2018 5:00 PM) Component Value Ref Range PATHOLOGY REPORT [facility] [email or web address] [email or web address] Tobar MD, Director of Clinical Laboratory Seven Reyes MD, Director of Flow Cytometry Laboratory Department of Pathology and Laboratory Medicine [address] [place] [address] Surgical Pathology Office:[phone]:[phone] FLOW CYTOMETRY REPORT NAME: KELVIN ZALDIVAR SURG PATH #: [id number] MR #: [id number] SPECIMEN CLASS: LC BILLING #: [id number] ALT ID #:LOCATION: [facility] DATE OF PROCEDURE: 01/24/2018 AGE:42 SEX: M DATE RECEIVED: 01/25/2018 : 1975TIME RECEIVED:08:52 PHYSICIAN: LEXI VARELA DATE OF REPORT: 01/25/2018 COPY TO: MICHELE ALEJANDRA, DO MELARA,MIGUELGABO HUNG DATE OF PRINTIN01/25/2018 Material Received: A: Right [...] Markers (% Positive Cells): CD19=8; CD20=8; CD23=0; [place]=4; Lambda=4; [place]:Lambda ratio=1.0 T Cell Associated Markers (% Positive Cells): CD2=82; CD3=78; CD4=29; CD5=70; CD7=78; CD8=46 CD4:CD8 ratio=0.6 Miscellaneous Markers (% Positive Cells): CD10=1; CD34=0; CD38=64; HB54=659; CD56=7; FMC7=0; RH816=2 Cell Viability (%): 92 Number of Cells Analyzed:24,863 Total Number of Markers: 23 Summary of Marker Combinations: [place]/Lambda/5/10/19/45/38/20;FMC7/23/5/34/200 /45/19;2/7/5/3/4/45/56/8 This test was developed and its performance characteristics determined by the [facility] Flow Cytometry Laboratory.It has not been cleared or approved by the U.S. Food and Drug Administration (FDA).The FDA has determined that such clearance or approval is not necessary. Specimen Performing Laboratory LAB RESULTS * LEUKEMIA/LYMPHOMA PANEL FLUID/TISSUE (01/24/2018 5:00 PM) Component Value Ref Range Leuk/Lymph Interpretation SEE PATHOLOGY REPORT Specimen/LLM RIGHT NECK MASS BIOPSY Specimen Performing Laboratory [facility] [address] [place] [address] * CULTURE-TB (AFB) (01/24/2018 5:00 PM) Component Value Ref Range Battery Name AFB CULTURE Specimen Description BIOPSY R neck mass Special Requests NONE Culture NO GROWTH OF MYCOBACTERIA AT 6 WEEKS Report Status FINAL 03/17/2018 Specimen Performing Laboratory Biopsy [facility]IN [facility] [address] [place] [address] * CULTURE-FUNGAL,OTHER (01/24/2018 5:00 PM) Component Value Ref Range Battery Name FUNGUS CULTURE Specimen Description BIOPSY R neck mass Special Requests NONE Culture NO GROWTH OF FUNGUS AT 4 WEEKS Report Status FINAL 02/24/2018 Specimen Performing Laboratory Biopsy [facility] [address] [place] [address] * CULTURE-ANAEROBIC (01/24/2018 5:00 PM) Component Value Ref Range Battery Name ANAEROBE CULTURE Specimen Description BIOPSY R neck mass Special Requests NONE Culture NO ANAEROBES ISOLATED Report Status FINAL 01/29/2018 Specimen Performing Laboratory Biopsy [facility] [address] [place] [address] * CULTURE-WOUND/TISSUE/FLUID(AEROBIC ONLY)W/SENSITIVITY (01/24/2018 5:00 PM) Component Value Ref Range Battery Name ROUTINE CULTURE Specimen Description BIOPSY R neck mass Special Requests NONE Culture NO GROWTH 5 DAYS Report Status FINAL 01/29/2018 Specimen Performing Laboratory Biopsy [facility] [address] [place] [address] * CHEST 2 VIEWS (01/24/2018 2:38 AM) [...] expressed in this report Finalized by Saundra Alejandra M.D. on 01/24/2018 10:20 AM. Dictated by [...] expressed in this report Finalized by Saundra Alejandra M.D. on 01/24/2018 10:20 AM. Dictated by Antonio Nicholson M.D. on 01/24/2018 7:58 AM. * ALPHA FETO PROTEIN (AFP) (01/24/2018 2:16 AM) Component Value Ref Range Alpha Feto Protein 2.0 0.0 - 15.0 NG/ML Specimen Performing Laboratory [facility] [address] [place] [address] * LACTIC ACID(LACTATE) (01/24/2018 2:16 AM) Component Value Ref Range Lactic Acid 1.2 0.5 - 2.0 MMOL/L Specimen Performing Laboratory Blood [facility] [address] [place] [address] * PROCALCITONIN (01/24/2018 2:16 AM) Component Value Ref Range Procalcitonin 0.06 <0.10 NG/ML Specimen Performing Laboratory Blood [facility] [address] [place] [address] * CULTURE-BLOOD W/SENSITIVITY (01/24/2018 2:16 AM) Component Value Ref Range Battery Name BLOOD CULTURE Specimen Description BLOOD LEFT HAND Special Requests NONE Culture NO GROWTH 5 DAYS Report Status FINAL 01/30/2018 Specimen Performing Laboratory [facility] [address] [place] [address] * CULTURE-BLOOD W/SENSITIVITY (01/24/2018 2:00 AM) Component Value Ref Range Battery Name BLOOD CULTURE Specimen Description BLOOD LEFT FA Special Requests NONE Culture NO GROWTH 5 DAYS Report Status FINAL 01/30/2018 Specimen Performing Laboratory [facility] [address] [place] [address] * LDH-LACTATE DEHYDROGENASE (01/24/2018 12:54 AM) Component Value Ref Range Lactate Dehydrogenase 367 (H) 100 - 210 U/L Specimen Performing Laboratory [facility] [address] [place] [address] * BETA-HCG (01/24/2018 12:54 AM) Component Value Ref Range Beta-HCG,Serum 1 <5 U/L Specimen Performing Laboratory [facility] [address] [place] [address] * C REACTIVE PROTEIN (CRP) (01/24/2018 12:54 AM) Component Value Ref Range C-Reactive Protein 2.41 (H) <1.0 MG/DL Specimen Performing Laboratory [facility] [address] [place] [address] * COMPREHENSIVE METABOLIC PANEL (01/24/2018 12:54 AM) [...] Specimen Performing Laboratory [facility] [address] [place] [address] * PROTIME INR (PT) (01/24/2018 12:54 AM) Component Value Ref Range INR 1.2 0.8 - 1.2 Specimen Performing Laboratory [facility] [address] [place] [address] * CBC AND DIFF (01/24/2018 12:54 AM) [...] Performing Laboratory [facility] [address] [place] [address] * CT MISC EXTERNAL IMAGING (01/23/2018 6:50 [...] this encounter Visit Diagnoses Diagnosis Neck mass Swelling, mass, or lump in head and neck Diagnosis unknown Other unknown and unspecified cause of morbidity or mortality Admitting Diagnoses Diagnosis Neck/chest mass Neck mass [...] ACETAMINOPHEN DOSE NOT TO EXCEED 4GM DAILY albuterol 0.5% (PROVENTIL; VENTOLIN) Given 02/14/2018 2.5 mg nebulizer solution 2.5 mg 10:44 CDT 2.5 mg, Inhalation, RT FOUR TIMES DAILY PRN, Starting Sat02/10/18 at 1615, Until Sat02/14/18 at 1427, RT PROTOCOL, ADMINISTERED BY RT clonazePAM (KLONOPIN) tablet 0.25 mg Given 02/12/2018 0.25 mg 0.25 mg, Oral, DAILY, First dose on Sat 08:36 CDT 02/11/18 at 1200, Until Discontinued Given 02/13/2018 0.25 mg 09:56 CDT Given 02/14/2018 0.25 mg 09:07 CDT clonazePAM (KLONOPIN) tablet 0.5 mg Given 02/11/2018 0.5 mg 0.5 mg, Oral, AT BEDTIME DAILY, First 21:37 CDT dose on Sat02/11/18 at 2100, Until Discontinued enoxaparin (LOVENOX) syringe 80 mg Given 02/13/2018 [...] 02/14/2018 80 mg Arm, Left 09:05 CDT fentaNYL citrate PF (SUBLIMAZE) Given 02/11/2018 50 [...] CDT Given 02/14/2018 75 mcg 07:44 CDT ipratropium bromide (ATROVENT) 0.02 % Given 02/14/2018 0.5 mg nebulizer solution 0.5 mg 10:44 CDT 0.5 mg, Inhalation, RT FOUR TIMES DAILY PRN, Starting 02/10/18 at 1615, Until Sat02/14/18 at 1427, RT PROTOCOL, ADMINISTERED BY RT lidocaine 1%/EPINEPHrine 1:100,000 Given 01/24/2018 2 mL Neck injection 14:20 CDT INTRA-PROCEDURE MED, Starting Sat01/24/18 at 1420, Until Sat01/24/18 at 1515, Intra-op LORazepam (ATIVAN) injection 0.5-1 mg Given 02/11/2018 1 mg 0.5-1 mg, Intravenous, THREE TIMES DAILY 03:04 CDT PRN, Starting 02/05/18 at 1015, Until Sat02/14/18 at 1427, Anxiety Injectable, PROTECT FROM LIGHT. One dose to be given each day before going for radiation therapy treatment. Given 02/11/2018 1 mg 23:43 CDT Given 02/12/2018 1 mg 16:49 CDT LORazepam (ATIVAN) injection 1 mg Given 02/13/2018 1 mg 1 mg, Intravenous, DAILY PRN, Starting 07:52 CDT 02/07/18 at 0918, Until Sat02/14/18 at 1427, Other..., Prior to radiation therapy, PROTECT FROM LIGHT Given 02/13/2018 1 mg 22:53 CDT Given 02/14/2018 1 mg 07:45 CDT nicotine (NICODERM CQ STEP 1) 21 mg/day Patch/Topica 02/12/2018 1 patch Arm, Left patch 1 patch l Applied 08:32 CDT 1 patch, Transdermal, Administer over 24 Hours, DAILY, First dose on Sat01/24/18 at 1645, Until Discontinued, If patch causes sleep disturbance, remove it at night. Patch/Topical Applied 02/13/2018 1 patch Arm, Right 09:56 CDT Patch/Topical Applied 02/14/2018 1 patch Arm, Left 09:07 CDT ondansetron (ZOFRAN) injection 4 mg Given 02/13/2018 4 mg 4 mg, Intravenous, EVERY 6 HOURS PRN, 06:50 CDT Starting 01/25/18 at 1454, Until Sat02/14/18 at 1427, Nausea/Vomiting Injectable Given 02/13/2018 4 mg 13:50 CDT Given 02/13/2018 4 mg 20:17 CDT pancrelipase 20,000 Units/ sodium bicarbonate 650 mg(#) ([facility] CLOG DESTROYER) for occluded feeding tube cap 1 capsule 1 capsule, Feeding Tube, NEEDED (DIRECTOR OF NATIONAL SALES FROM RX), Starting 01/25/18 at 0935, Until 02/14/18 at 1427, Other..., Occluded Feeding Tube, 1. [...] physician if tube remains occluded following administration. polyethylene glycol 3350 (MIRALAX) Given 02/07/2018 17 g packet 17 g 20:14 CDT 17 g (1 packet), Oral, TWICE DAILY, First dose on Jessie 02/06/18 at 1200, Until Discontinued, 8.5 GRAMS=0.5 PACKET 17 GRAMS=1 PACKET 34 GRAMS=2 PACKETS Given 02/08/2018 17 g 08:08 CDT Given 02/09/2018 17 g 08:00 CDT prochlorperazine (COMPAZINE) injection Given 02/10/2018 10 mg 10 mg 01:50 CDT 10 mg, Intravenous, EVERY 6 HOURS PRN, Starting 02/09/18 at 0811, Until 02/14/18 at 1427, Nausea/Vomiting Injectable, PROTECT FROM LIGHT [...] CDT Given 02/09/2018 10 mL 08:00 CDT simethicone (MYLICON) chew tablet 80 mg Given 02/08/2018 80 mg 80 mg, Oral, EVERY 6 HOURS PRN, 03:14 CDT Starting 02/08/18 at 0308, Until 02/14/18 at 1427, Flatulence traMADol (ULTRAM) tablet 25-50 mg Given 02/12/2018 50 mg 25-50 mg, Oral, EVERY 6 HOURS PRN, 16:13 CDT Starting 02/09/18 at 1055, Until Sat02/14/18 at 1427, Pain PO Given 02/13/2018 50 mg 15:19 CDT Given 02/13/2018 50 mg 21:24 CDT water, sterile irrigation bottle Given 01/24/2018 1,000 mL INTRA-PROCEDURE MED, Starting Sat 14:00 CDT 01/24/18 at 1400, Until Sat01/24/18 at 1515, Intra-op in this encounter
--- OUTSIDE RECORDS SUMMARY | 2018-03-17 15:20 | XMS REPORT | Encounter Summary ---
Author Author [facility] Organization [facility] Address Unknown Phone Unavailable Care Team Providers Care Metal Machine Operator Name Role Phone PCP Unavailable Encounter Details Date Type Department Care Team Description 01/23/2018 Hospital [facility] Encounter Hospital Radiology [address] [place] [address] Social History Tobacco Use Types Packs/Day Years [...]
--- OUTSIDE RECORDS SUMMARY | 2018-03-17 15:20 | XMS REPORT | Encounter Summary ---
Author Author [facility] Organization [facility] Address Unknown Phone Unavailable Care Team Providers Care Labor Delivery Rn Name Role Phone PCP Unavailable Encounter Details Date Type Department Care Team Description 01/23/2018 Hospital [facility] Encounter Hospital Radiology [address] [place] [address] Social History Tobacco Use Types Packs/Day Years [...]
--- OUTSIDE RECORDS SUMMARY | 2018-03-17 15:20 | XMS REPORT | Encounter Summary ---
Author Author [facility] Organization [facility] Address Unknown Phone Unavailable Care Team Providers Care Machine Farmworker Name Role Phone PCP Unavailable Encounter Details Date Type Department Care Team Description 01/23/2018 Hospital [facility] Encounter Hospital Radiology [address] [place] [address] Social History Tobacco Use Types Packs/Day Years [...] Procedure Name Priority Date/Time Associated Diagnosis Comments ECG-SCAN 02/17/2018 Results for this 1:25 PM CDT procedure are in the results section. ECG-SCAN 01/26/2018 Results for this 6:05 PM CDT procedure are in the results section. in this encounter Results * ECG-SCAN (02/17/2018 1:25 PM) Narrative Ordered by an unspecified provider. * ECG-SCAN (01/26/2018 6:05 PM) Narrative Ordered by an unspecified provider. in this encounter Visit Diagnoses Not on filein this encounter
--- OUTSIDE RECORDS SUMMARY | 2018-03-17 15:27 | XMS REPORT | Continuity of Care Document ---
Author Author [employer] [facility] Address Unknown Phone Unavailable Care Team Providers Care Gis Scientist Name Role Phone [employer] Unavailable Unavailable Problems Medications Allergies, Adverse Reactions, Alerts Immunizations Results Vital Signs Encounters Location Location Details Encounter Type Encounter Number Reason For Visit Attending Provider ADM Date DC Date Status Source INPATIENT [id number] MORGAN VERONIKA 01/24/20182017 Active [facility] RAD/ONC [id number] HANNAH SALVADOR 02/14/2018 Active [facility] RAD/ONC [id number] 02/25/2018 Active [facility] O HANNAH SALVADOR 02/28/2018 Active [facility] Procedures Plan of Care Social History Assessment and Plan Family History Advance Directives Functional Status
--- OUTSIDE RECORDS SUMMARY | 2018-03-17 15:28 | XMS REPORT | Clinical Summary ---
Author Author [facility] Organization [facility] Address Unknown Phone Unavailable Care Team Providers Care Dispensary Attendant Name Role Phone No Pcp, Na PCP Unavailable Source Comments Some departments are not documenting in the electronic medical record. If you do not see the information that you expected, contact Release of Information in the Health Information Management department at [phone] for further assistance in locating additional records.[facility] Allergies No Known Allergies Current Medications Prescription [...] Overview: Added automatically from request for surgery [id number] Encounters Date Type Specialty Care Team Description [...] MD 01/31/2018 Office Visit Radiation Therapy Morales Lundberg MD Neck mass (Primary Dx); Pasha Wood MD Carcinoma of unknown primary (HCC) 01/31/2018 Documentation Radiation Therapy Pasha Wood MD 01/31/2018 Orders Only Radiation Therapy Pasha Wood MD Mediastinal mass (Primary Dx) 01/24/2018 Office Visit Radiation Therapy Morales Lundberg MD Neck mass (Primary Dx) [facility] - [facility] Carlos Anne, 02/14/2018 Miguel Shipley MD Dwyer, Timothy, MD Simpson, Steven, MD Albakour, MD Yeimi Braga, LatishaPATRICK Kapil, MD Chia, Jessica, MD Diederich, Emily R, MD Stevens, Damien R, MD 01/24/2018 Anesthesia Zaida Horan, SOUND CONTROLLER Event 01/24/2018 Procedure Pass 01/24/2018 Surgery Jorge [...] INFLUENZA VACCINE 07/28/2018 Implants Implanted Type Area Bead Preparer Device Expiration Model / Identifier Date Serial / Lot Port Implantable 8 Float Point Unit Left: CR BARD:ACCESS [id number] 11/27/2018 [id number] / Siom Intermediate - Sna Chest Wall SYS 8082 NA / Implanted: Qty: 1 on 02/03/2018 by [id number] Jerzy Wilkinson MD Explanted Type Area Bead Preparer Device Expiration Model / Identifier Date Serial / Lot Port Implantable 8 Float Point Unit CR BARD:ACCESS [id number] 2018 [id number] / Siom Intermediate - Sna SYS 8082 NA / Explanted: Qty: 1 on 02/03/2018 [id number] Procedures Procedure Name Priority Date/Time Associated Diagnosis [...] Point ID Neck_Mediastinum Dosage Given To Date 24.36763718 Session Dosage Given 2.33543988 Plan ID Neck_Med_I # Plan Name Generated [...] Manual Specimen Performing Laboratory Blood MAIN LAB [address] [place] [address] * PHOSPHORUS (02/14/2018 2:10 AM) Only the most recent of 18 results within the time period is included. Component Value Ref Range Phosphorus 2.8 2.0 - 4.0 MG/DL Specimen Performing Laboratory Blood MAIN LAB [address] [place] [address] * MAGNESIUM (02/14/2018 2:10 AM) Only the most recent of 18 results within the time period is included. Component Value Ref Range Magnesium 1.7 1.6 - 2.6 mg/dL Specimen Performing Laboratory Blood MAIN LAB [address] [place] [address] * COMPREHENSIVE METABOLIC PANEL (02/14/2018 2:10 AM) [...] Performing Laboratory Blood [facility] MAIN [facility] [address] [place] [address] * CBC (02/13/2018 2:30 PM) Only the [...] Performing Laboratory Blood [facility] MAIN [facility] [address] [place] [address] * RAD ONC TREATMENT INFORMATION (02/13/2018 8:33 AM) Component Value Ref Range Course ID C1-Neck_Mediasti First Treatment Date 02-01-2018 02:58PM Last Treatment Date 02-13-2018 08:33AM Treatment Elapsed Days 12 Reference Point ID Neck_Mediastinum Dosage Given To Date 22.7106654 Session Dosage Given 2.29588509 Plan ID Neck_Med_I # Plan Name Generated [...] Point ID Neck_Mediastinum Dosage Given To Date 20.29509317 Session Dosage Given 2.75134887 Plan ID Neck_Med_I # Plan Name Generated [...] Performing Laboratory Urine [facility] MAIN [facility] [address] [place] [address] * CULTURE-BLOOD W/SENSITIVITY (02/11/2018 2:10 PM) Only the most recent of 6 results within the time period is included. Component Value Ref Range Battery Name BLOOD CULTURE Specimen Description BLOOD LEFT ANTECUBITAL Special Requests NONE Culture NO GROWTH 5 DAYS Report Status FINAL 02/17/2018 Specimen Performing Laboratory Blood [facility] MAIN [facility] [address] [place] [address] * RAD ONC TREATMENT INFORMATION (02/11/2018 8:40 AM) Component Value Ref Range Course ID C1-Neck_Mediasti First Treatment Date 02-01-2018 02:58PM Last Treatment Date 02-11-2018 08:40AM Treatment Elapsed Days 10 Reference Point ID Neck_Mediastinum Dosage Given To Date 18.36319291 Session Dosage Given 2.19227285 Plan ID Neck_Med_I # Plan Name Generated [...] Point ID Neck_Mediastinum Dosage Given To Date 16.87881457 Session Dosage Given 2.42085991 Plan ID Neck_Med_I # Plan Name Generated [...] Performing Laboratory Perirectal Swab MAIN LAB [address] [place] [address] * ABDOMEN AP ONLY (02/08/2018 10:07 AM) [...] on 02/08/2018 12:29 PM. Dictated by Shen Ahuaj M.D. on 02/08/2018 10:17 AM. Narrative Procedure: [...] Performing Laboratory Blood [facility] MAIN [facility] [address] [place] [address] * SODIUM-URINE RANDOM (02/07/2018 11:56 AM) Only the most recent of 2 results within the time period is included. Component Value Ref Range Sodium, Random 35 MMOL/L Specimen Performing Laboratory Urine [facility]IN [facility] [address] [place] [address] * CREATININE-URINE RANDOM (02/07/2018 11:56 AM) Only the most recent of 2 results within the time period is included. Component Value Ref Range Creatinine, Random 79 MG/DL Specimen Performing Laboratory Urine [facility]IN [facility] [address] [place] [address] * RAD ONC TREATMENT INFORMATION (02/07/2018 8:53 AM) Component Value Ref Range Course ID C1-Neck_Mediasti First Treatment Date 02-01-2018 02:58PM Last Treatment Date 02-07-2018 08:53AM Treatment Elapsed Days 6 Reference Point ID Neck_Mediastinum Dosage Given To Date 14.84438802 Session Dosage Given 2.87766946 Plan ID Neck_Med_I # Plan Name Generated [...] Performing Laboratory Blood [facility]IN [facility] [address] [place] [address] * RAD ONC TREATMENT INFORMATION (02/06/2018 4:30 [...] 0.77 E/E' ratio 8.22 CV ECHO PV COAT JOINER Amber ARAIZA LV mass 81.37 96 - 200 g RWT 0.54 <=0.42 TV rest pulmonary artery NA mmHg pressure Cardiology Ultrasound Siemens [id number] Machine Left Ventricle Mass Index 40.48 50 [...] Sat-Arterial 92.0 (L) 95 - 99 % Ypzpgdnlfqv-NYO-Pqa 28.1 (H) 21 - 28 MMOL/L Specimen Performing Laboratory Blood, arterial - Blood MAIN LAB [address] [place] [address] * STREPTOCOCCUS PNEUMO AG, URINE (02/06/2018 5:30 AM) Component Value Ref Range Battery Name STREP PNEUMO AG, UR Specimen Description URINE Special Requests NONE Antigen NEGATIVE Report Status FINAL 02/06/2018 Specimen Performing Laboratory Urine MAIN LAB [address] [place] [address] * LEGIONELLA ANTIGEN URINE,RAN (02/06/2018 5:30 AM) Component Value Ref Range Battery Name LEGIONELLA URINE ANTIGEN Specimen Description URINE Special Requests NONE Antigen NEGATIVE Report Status FINAL 02/06/2018 Specimen Performing Laboratory Urine MAIN LAB [address] [place] [address] * GRAM STAIN (02/06/2018 4:15 AM) Component Value Ref Range Battery Name GRAM STAIN Specimen Description TRACHEAL ASPIRATE Special Requests NONE Gram Stain GREATER THAN 25/LPF NEUTROPHILS 10-25/LPF SQUAMOUS EPITHELIAL CELLS MANY MIXED BACTERIA Report Status FINAL 02/06/2018 Specimen Performing Laboratory Tracheal Aspirate MAIN LAB [address] [place] [address] * CULTURE-RESP,LOWER W/SENSITIVITY (02/06/2018 4:15 AM) Component Value Ref Range Battery Name LOWER RESP CULTURE Specimen Description TRACHEAL ASPIRATE Special Requests NONE Direct Gram Stain GREATER THAN 25/LPF NEUTROPHILS 10-25/LPF SQUAMOUS EPITHELIAL CELLS MANY MIXED BACTERIA Culture Heavy growth NORMAL OROPHARYNGEAL WHIT Report Status FINAL 02/08/2018 Specimen Performing Laboratory Tracheal Aspirate MAIN LAB [address] [place], [place] [address] * PROCALCITONIN (02/06/2018 3:58 AM) Only the most recent of 2 results within the time period is included. Component Value Ref Range Procalcitonin 0.25 (H) <0.10 NG/ML Specimen Performing Laboratory Blood MAIN LAB [address] [place] [address] * LACTIC ACID (BG - RAPID LACTATE) (02/06/2018 3:58 AM) Only the most recent of 2 results within the time period is included. Component Value Ref Range Lactic Acid,BG 1.4 0.5 - 2.0 MMOL/L Specimen Performing Laboratory Blood MAIN LAB [address] [place], [place] [address] * TROPONIN-I (02/06/2018 3:58 AM) Only the most recent of 2 results within the time period is included. Component Value Ref Range Troponin-I 0.03 0.0 - 0.05 NG/ML Specimen Performing Laboratory Blood MAIN LAB [address] [place] [address] * BNP (B-TYPE NATRIURETIC PEPTI) (02/06/2018 3:58 AM) Component Value Ref Range B Type Natriuretic 153.0 (H) 0 - 100 PG/ML Peptide Specimen Performing Laboratory Blood MAIN LAB [address] [place], [place] [address] * POC BLOOD GAS ARTERIAL (02/06/2018 3:27 AM) Only the most recent of 2 results within the time period is included. Component Value Ref Range PH-ART-POC 7.50 (H) 7.35 - 7.45 QFD7-GOW-NYI 37 35 - 45 MMHG PO2-ART-POC 55 (L) 80 - 100 MMHG Base Ex-ART-POC 6.0 MMOL/L O2 Sat-ART-POC 91.0 (L) 95 - 99 % Wdreebsatya-OPQ-SZU 28.7 (H) 21 - 28 MMOL/L Specimen Performing Laboratory [facility] [address] [place], [place] [address] * POC SODIUM (02/06/2018 3:27 AM) Component Value Ref Range Sodium-POC 138 137 - 147 MMOL/L Specimen Performing Laboratory [facility] [address] [place], [place] [address] * POC POTASSIUM (02/06/2018 3:27 AM) Component Value Ref Range Potassium-POC 4.3 3.5 - 5.1 MMOL/L Specimen Performing Laboratory [facility] [address] [place], [place] [address] * POC IONIZED CALCIUM (02/06/2018 3:27 AM) Component Value Ref Range Ionized Calcium-POC 1.23 1.0 - 1.3 MMOL/L Specimen Performing Laboratory [facility] [address] [place] [address] * POC HEMATOCRIT (02/06/2018 3:27 AM) Component Value Ref Range Hemoglobin POC 13.6 13.5 - 16.5 GM/DL Hematocrit POC 40.0 40 - 50 % Specimen Performing Laboratory [facility] [address] [place] [address] * POC GLUCOSE (02/06/2018 3:21 AM) Component Value Ref Range Glucose, POC 105 (H) 70 - 100 MG/DL Specimen Performing Laboratory [facility] [address] [place] [address] * BLOOD BANK SAMPLE HOLD (02/06/2018 3:12 AM) Component Value Ref Range BB Sample hold IN LAB [place] [address] * PTT (APTT) (02/06/2018 3:12 AM) Only the most recent of 2 results within the time period is included. Component Value Ref Range APTT 28.7 21.0 - 39.0 SEC Specimen Performing Laboratory Blood [facility] [address] [place] [address] * IR GASTROSTOMY (02/05/2018 8:23 AM) Specimen [...] CONTRAST:50 mL of Isovue 300 CATHETER: 18 Urugu[place] Ross G tube COMPLICATIONS: None TECHNIQUE/FINDINGS: Following [...] over the wire into the stomach.A 18 [place] Ross gastrostomy tube was placed over the [...] 50 mL of Isovue 300 CATHETER: 18 [place] Ross G tube COMPLICATIONS: None TECHNIQUE/FINDINGS: Following [...] the wire into the stomach. A 18 [place] Ross gastrostomy tube was placed over the [...] and upper superior vena cava. A 5 Uruguayan vascular sheath and Kumpe catheter were then [...] and upper superior vena cava. A 5 [place]ruguayan vascular sheath and Kumpe catheter were then [...] NUT BU IHC Reference Lab PERFORMED AT [facility] Results Ref Lab RESULTS WILL BW REPORTED IN AN ADDENDUM Specimen Mail SLIDES [id number] Specimen Performing Laboratory REFERENCE LAB * ECG-SCAN (01/26/2018 6:05 PM) Narrative Ordered by an unspecified provider. * CORTISOL,RANDOM (01/26/2018 5:50 AM) Component Value Ref Range Cortisol, Random 26.6 (H) 5.0 - 20.0 MCG/DL Specimen Performing Laboratory Blood MAIN LAB [address] [place] [address] * BLOOD GASES, PERIPHERAL VENOUS (01/25/2018 6:20 PM) Component Value Ref Range pH-Venous 7.37 7.30 - 7.40 PCO2-Venous 41 36 - 50 MMHG PO2-Venous 58 (H) 33 - 48 MMHG Base Deficit-Venous 1.4 MMOL/L O2 Sat-Venous 87.3 (H) 55 - 71 % Odzxmmuzkku-MCX-Pio 23.0 MMOL/L Specimen Performing Laboratory Blood, venous - Blood [facility] MAIN LAB [address] [place] [address] * SURGICAL PATHOLOGY (01/24/2018 6:05 PM) Component Value Ref Range PATHOLOGY REPORT [facility] [email or web address] Department of Pathology and Laboratory Medicine [address] [place] [address] Surgical Pathology Office:[phone]:[phone] SURGICAL PATHOLOGY REPORT NAME: DAVID HARRIS SURG PATH #: [id number] MR #: [id number] SPECIMEN CLASS: SR BILLING #: [id number] ALT ID #:LOCATION: [id number] DATE OF PROCEDURE: [...] for NUT performed on block A2 at [facility] is negative in the tumor cells. ALTAGRACIA [...] immunostain for NUT is being performed at [facility] and be reported in an addendum PD-L1: Results: % Positive: 20% PD-L1 test name: DAKO PD-L1 IHC 22C3 pharmDX Cell types evaluated: Tumor cells Pursuant to the Calender Machine Operator Program at the [facility] Pathology Department, selected slides from this case [...] of Pathology and Laboratory Medicine of the [facility] ([employer]) in compliance with [...] of Pathology and Laboratory Medicine of the [facility].It has not been cleared or approved by the FDA.The FDA has determined that such clearance or approval is not necessary. Specimen Performing Laboratory [facility] LAB RESULTS * URINALYSIS, MICROSCOPIC (01/24/2018 6:00 PM) Component Value Ref Range WBCs,UA 0-2 0 - 2 /HPF RBCs,UA 0-2 0 - 3 /HPF MucousUA TRACE Specimen Performing Laboratory Urine [facility] MAIN LAB [address] [place] [address] * URINALYSIS DIPSTICK (01/24/2018 6:00 PM) Component Value Ref Range Color,UA YELLOW Turbidity,UA 1+ (A) CLEAR-CLEAR Specific Wadley-Urine 1.029 1.003 - 1.035 pH,UA 5.0 5.0 - 8.0 Protein,UA NEG NEG-NEG Glucose,UA NEG NEG-NEG Ketones,UA 1+ (A) NEG-NEG Bilirubin,UA NEG NEG-NEG Blood,UA NEG NEG-NEG Urobilinogen,UA NORMAL NORM-NORMAL Nitrite,UA NEG NEG-NEG Leukocytes,UA NEG NEG-NEG Urine Ascorbic Acid, UA NEG NEG-NEG Specimen Performing Laboratory Urine [facility] MAIN LAB [address] [place] [address] * OSMOLALITY-URINE RANDOM (01/24/2018 6:00 PM) Component Value Ref Range Osmolality-Urine 847 50 - 1,400 MOS/KG Specimen Performing Laboratory Urine MAIN LAB [address] [place] [address] * IR PERCUTANEOUS BIOPSY (01/24/2018 5:51 PM) [...] Specimen Performing Laboratory Blood MAIN LAB [address] [place] [address] * BASIC METABOLIC PANEL (01/24/2018 5:30 PM) [...] Specimen Performing Laboratory Blood MAIN LAB [address] [place] [address] * FLOW CYTOMETRY (01/24/2018 5:00 PM) Component Value Ref Range PATHOLOGY REPORT [facility] [email or web address] Marjorie Tobar MD, Director of Clinical Laboratory Seven Reyes MD, Director of Flow Cytometry Laboratory Department of Pathology and Laboratory Medicine [address] [place] [address] Surgical Pathology Office:[phone]:[phone] FLOW CYTOMETRY REPORT NAME: DAVID HARRIS SURG PATH #: [id number] MR #: [id number] SPECIMEN CLASS: BILLING #: [id number] ALT ID #:LOCATION: [facility] DATE OF PROCEDURE: 01/24/2018 AGE:42 SEX: M DATE RECEIVED: 01/25/2018 : 1975TIME RECEIVED:08:52 PHYSICIAN: LEXI VARELA DATE OF REPORT: 01/25/2018 COPY TO: DO SARITHA SILVA,[facility] MAYLIN DATE OF PRINTIN01/25/2018 Material [...] Markers (% Positive Cells): CD19=8; CD20=8; CD23=0; Rudy=4; Lambda=4; Rudy:Lambda ratio=1.0 T Cell Associated Markers (% Positive Cells): CD2=82; CD3=78; CD4=29; CD5=70; CD7=78; CD8=46 CD4:CD8 ratio=0.6 Miscellaneous Markers (% Positive Cells): CD10=1; CD34=0; CD38=64; BP70=588; CD56=7; FMC7=0; ES922=5 Cell Viability (%): 92 Number of Cells Analyzed:24,863 Total Number of Markers: 23 Summary of Marker Combinations: Rudy/Lambda/5/10/19/45/38/20;FMC7/23/5/34/200 /45/19;2/7/5/3/4/45/56/8 This test was developed and its performance characteristics determined by the [facility] Flow Cytometry Laboratory.It has not been cleared or approved by the U.S. Food and Drug Administration (FDA).The FDA has determined that such clearance or approval is not necessary. Specimen Performing Laboratory LAB RESULTS * LEUKEMIA/LYMPHOMA PANEL FLUID/TISSUE (01/24/2018 5:00 PM) Component Value Ref Range Leuk/Lymph Interpretation SEE PATHOLOGY REPORT Specimen/LLM RIGHT NECK MASS BIOPSY Specimen Performing Laboratory MAIN LAB [address] [place] [address] * CULTURE-FUNGAL,OTHER (01/24/2018 5:00 PM) Component Value Ref Range Battery Name FUNGUS CULTURE Specimen Description BIOPSY R neck mass Special Requests NONE Culture NO GROWTH OF FUNGUS AT 4 WEEKS Report Status FINAL 02/24/2018 Specimen Performing Laboratory Biopsy MAIN LAB [address] [place] [address] * CULTURE-TB (AFB) (01/24/2018 5:00 PM) Component Value Ref Range Battery Name AFB CULTURE Specimen Description BIOPSY R neck mass Special Requests NONE Culture NO GROWTH OF MYCOBACTERIA AT 6 WEEKS Report Status FINAL 03/17/2018 Specimen Performing Laboratory Biopsy MAIN LAB [address] [place] [address] * CULTURE-WOUND/TISSUE/FLUID(AEROBIC ONLY)W/SENSITIVITY (01/24/2018 5:00 PM) Component Value Ref Range Battery Name ROUTINE CULTURE Specimen Description BIOPSY R neck mass Special Requests NONE Culture NO GROWTH 5 DAYS Report Status FINAL 01/29/2018 Specimen Performing Laboratory Biopsy MAIN LAB [address] [place], [place] [address] * CULTURE-ANAEROBIC (01/24/2018 5:00 PM) Component Value Ref Range Battery Name ANAEROBE CULTURE Specimen Description BIOPSY R neck mass Special Requests NONE Culture NO ANAEROBES ISOLATED Report Status FINAL 01/29/2018 Specimen Performing Laboratory Biopsy MAIN LAB [address] [place] [address] * CHEST 2 VIEWS (01/24/2018 2:38 AM) [...] NG/ML Specimen Performing Laboratory MAIN LAB [address] [place] [address] * LACTIC ACID(LACTATE) (01/24/2018 2:16 AM) Component Value Ref Range Lactic Acid 1.2 0.5 - 2.0 MMOL/L Specimen Performing Laboratory Blood MAIN LAB [address] [place] [address] * C REACTIVE PROTEIN (CRP) (01/24/2018 12:54 AM) Component Value Ref Range C-Reactive Protein 2.41 (H) <1.0 MG/DL Specimen Performing Laboratory MAIN LAB [address] [place] [address] * BETA-HCG (01/24/2018 12:54 AM) Component Value Ref Range Beta-HCG,Serum 1 <5 U/L Specimen Performing Laboratory MAIN LAB [address] [place] [address] * LDH-LACTATE DEHYDROGENASE (01/24/2018 12:54 AM) Component Value Ref Range Lactate Dehydrogenase 367 (H) 100 - 210 U/L Specimen Performing Laboratory MAIN LAB [address] [place] [address] * CT MISC EXTERNAL IMAGING (01/23/2018 6:50 PM) Only the most recent of 4 results within the time period is included. Narrative This order has been auto finalized and does not contain a result. from Last 3 Months
--- OUTSIDE RECORDS SUMMARY | 2018-03-17 15:28 | XMS REPORT | Encounter Summary ---
Author Author [facility] Organization [facility] Address Unknown Phone Unavailable Care Team Providers Care Heavy Equipment Plumbing Supervisor Name Role Phone No Pcp, Na PCP Unavailable Encounter Details Date Type Department Care Team Description 02/14/2018 Documentation [facility] Radiation Pasha Wood MD Therapy [address] [place] [address] [place] [address] [phone] Social History Tobacco Use Types Packs/Day Years [...]
--- OUTSIDE RECORDS SUMMARY | 2018-03-17 15:28 | XMS REPORT | Encounter Summary ---
Author Author [facility] Organization [facility] Address Unknown Phone Unavailable Care Team Providers Care Wharf Tally Clerk Name Role Phone No Pcp, Na PCP Unavailable Encounter Details Date Type Department Care Team Description 02/25/2018 Pharmacy Visit [facility] [address] [place] [address] Social History Tobacco Use Types Packs/Day Years [...]
--- OUTSIDE RECORDS SUMMARY | 2018-03-17 15:28 | XMS REPORT | Encounter Summary ---
Author Author [facility] Organization [facility] Address Unknown Phone Unavailable Care Team Providers Care Solvent Station Attendant Name Role Phone No Pcp, Na PCP Unavailable Encounter Details Date Type Department Care Team Description 02/14/2018 Hosp Case Management - Social Esthela Machuca Documentation Work Only [address] [place] [address] Social History Tobacco Use Types Packs/Day Years [...] states family and Dr. Nina office in [place] are working on insurance approval for pt to continue his tx there. Pt to discharge home today. PATTY Lopez,CCM in this encounter Plan of Treatment Not on fileas of this encounter Visit Diagnoses Not on filein this encounter
--- OUTSIDE RECORDS SUMMARY | 2018-03-17 15:28 | XMS REPORT | Encounter Summary ---
Author Author [facility] Organization [facility] Address Unknown Phone Unavailable Care Team Providers Care Sales Training Representative Name Role Phone No Pcp, Na PCP Unavailable Encounter Details Date Type Department Care Team Description 02/14/2018 [facility]ation [facility] - Radiation Pasha Wood MD Therapy [address] [place] [address] [place] [address] [phone] Social History Tobacco Use Types Packs/Day Years [...] 02/07/2018 02/10/2018 02/11/2018 02/12/2018 02/13/20182017 Course ID G7-Mdnt-Qdeqcewk T2-Gahq-Qqgywfxs I8-Kbta-Maxqbeel Y2-Rqtm-Ezigwama C1 -Neck-Mediasti Y3-Jjeb-Ixwppxru R8-Pcuj-Xenlvved Plan ID Neck-Mediast1:1 Neck-Med-I # Neck-Med-I # [...] Neck-Mediastinum Neck-Mediastinum Dosage Given to Date 12 14.63848957 16.27923971 18.94958801 20.59874253 22.9068221 24.13273679 He tolerated XRT. He initially received 4 [...] chemotherapy and radiotherapy closed to home at [facility]. We will refer him to local radiation oncology to continue his XRT. in this encounter Plan of Treatment Not on fileas of this encounter Visit Diagnoses Not on filein this encounter
--- OUTSIDE RECORDS SUMMARY | 2018-03-17 15:28 | XMS REPORT | Encounter Summary ---
Author Author [facility] Organization [facility] Address Unknown Phone Unavailable Care Team Providers Care Fire Hydrant Operator Name Role Phone No Pcp, Na PCP Unavailable Reason for Visit * Reason Comments On-treatment Encounter Details Date Type Department Care Team Description 02/14/2018 Office Visit Cancer Center - Radiation Pasha Wood MD Carcinoma of unknown Therapy [address] origin (HCC) (Primary Dx) [address] [place] [address] [place] [address] [phone] Social History Tobacco Use Types Packs/Day Years [...] finish radiation treatments closer to home in [place], [place] as he was d/c from the hospital today. Dr. Wood spoke with the patient about the interruption in treatment as he would need to be re-simmed at [facility], the patient still wishes to transfer care from a logistics standpoint. We also offered for him to continue treatments here at until [facility] is able to get him started with treatment there, however the patient still declined. I spoke with Dr. Zheng Lawton nurse at [facility] in [place], [place], they will work on getting approval from insurance and will call the patients girlfriend, Birtany as soon as they are able to [...] 02/07/2018 02/10/2018 02/11/2018 02/12/2018 02/13/20182017 Course ID S0-Dudu-Cwymyzpq C8-Jznn-Yglyfgew B9-Uwko-Vmhuwspq J8-Pblc-Ragzbcbz C1 -Neck-Mediasti O8-Srcr-Qlcitlth W8-Rsxz-Whwbvbri Plan ID Neck-Mediast1:1 Neck-Med-I # Neck-Med-I # [...] Neck-Mediastinum Dosage Given to Date (Gy) 12 14.80238256 16.21069895 18.57051039 20.60094983 22.2002443 24.10605731 Subjective: He tolerated XRT. He initially received [...] chemotherapy and radiotherapy closed to home at [facility]. We will refer him to local radiation oncology to continue his XRT. in this encounter Plan of Treatment Not on fileas of this encounter Visit Diagnoses Diagnosis Carcinoma of unknown origin (HCC) - Primary Other malignant neoplasm without specification of site
--- OUTSIDE RECORDS SUMMARY | 2018-03-17 15:28 | XMS REPORT | Encounter Summary ---
Author Author [facility] Organization [facility] Address Unknown Phone Unavailable Care Team Providers Care Life Coach Name Role Phone No Pcp, Na PCP Unavailable Encounter Details Date Type Department Care Team Description 02/14/2018 Pharmacy Visit [facility] [address] [place] [address] Social History Tobacco Use Types Packs/Day Years [...]
--- OUTSIDE RECORDS SUMMARY | 2018-03-17 15:28 | XMS REPORT | Encounter Summary ---
Author Author [facility] Organization [facility] Address Unknown Phone Unavailable Care Team Providers Care Director Of Financial Planning Name Role Phone No Pcp, Na PCP Unavailable Encounter Details Date Type Department Care Team Description 02/14/2018 [facility] Rad[facility] Pasha Wood MD Therapy [address] [place] [address] [place] [address] [phone] Social History Tobacco Use Types Packs/Day Years [...] 02/07/2018 02/10/2018 02/11/2018 02/12/2018 02/13/20182017 Course ID [id number]-Xasquhhk D9-Texp-Lzjosixj O2-Dytd-Cylzuvbk I2-Pqjc-Nfgodadm C1 -Neck-Mediasti D6-Xuhw-Oiccamlf G1-Udla-Sdgjqmtw Plan ID Neck-Mediast1:1 Neck-Med-I # Neck-Med-I # [...] Neck-Mediastinum Dosage Given to Date (Gy) 12 [id number] [id number] [phone] Subjective: He tolerated XRT. He initially received [...] chemotherapy and radiotherapy closed to home at [facility]. We will refer him to local radiation oncology to continue his XRT. in this encounter Plan of Treatment Not on fileas of this encounter Visit Diagnoses Not on filein this encounter
--- OUTSIDE RECORDS SUMMARY | 2018-03-17 15:28 | XMS REPORT | Encounter Summary ---
Author Author [facility] Organization [facility] Address Unknown Phone Unavailable Care Team Providers Care Bottom Steep Tender Name Role Phone No Pcp, Na PCP Unavailable Reason for Referral * Consult, Test & Treat (Urgent) Status Reason Specialty Diagnoses / Referred By Referred To Procedures Contact Contact New Request Specialty Radiation Therapy Diagnoses Pasha Wood MD Myers, Duane, MD Services Mediastinal mass [address] [place], [place] [address] [address] [place], [place] Phone: [phone] Phone: Encounter Details Date Type Department Care Team Description 02/14/2018 Orders Only [facility] - Radiation Dread Blanco RN Mediastinal mass (Primary Therapy Dx) [address] [place], [place] [id number] Social History Tobacco Use Types Packs/Day Years [...]
--- OUTSIDE RECORDS SUMMARY | 2018-03-17 15:32 | XMS REPORT | Encounter Summary ---
Author Author [facility] Organization [facility] Address Unknown Phone Unavailable Care Team Providers Care Extruder Operator Name Role Phone No Pcp, Na PCP Unavailable Reason for Visit * Auth/Cert Status Reason Specialty Diagnoses / Referred By Referred To Procedures Contact Contact Diagnoses Neck mass Diagnosis unknown Neck/chest mass Neck mass Encounter Details Date Type Department Care Team Description 01/24/2018 Hospital 45 HEM/ONC Carrol Beach MD Neck mass - Encounter [address] 02/14/2018 [place] [address] MS [address] [place] [address] [phone] Carlos Caldera DO [address] [place] [address] [phone] Miguel Granda MD [address] [place] [address] [phone] Gabo Be MD [address] [place] [address] [phone] Jerzy Watts MD [address] [place] [address] [phone] Omi Amaya MD [address] [place] [address] [phone] Latisha Harrington, SALESPERSON FLYING SQUAD [address] [place] [address] [phone] Vadim Rubi MD [address] [place] [address] [phone] Lily Lau MD [address] [place] [address] [phone] D Gabrielle vo MD [address] [place] [address] [phone] S Chon patton MD [address] [facility] [address] [place] [address] [phone] Social History Tobacco Use Types Packs/Day Years [...] 8 am has been set up at [facility] [place] [address], - [phone]) Acute Hypoxic Respiratory Failure: Thought to be [...] not pass through the area of compression. GLASS BEAD MAKER following. Anxiety:Due to new diagnosis. Psych evaluated [...] (placed on 02/06 through IR) + TFs. GLASS BEAD MAKER following. Had a video swallow on 02/10 [...] or concerns regarding your hospital stay. Call [phone] Discharging attending physician: OMI BANDA [[id number]] Regular Diet You have no dietary restriction. Please continue with a healthy balanced diet. Gastro-Jejunal [facility] care instructions: *WASH HANDS PRIOR TO HANDLING [...] PLACED IMMEDIATELY. Return Appointment [address] [address] - [phone] Jacobo with Medical Oncology at [facility] Appointment date: 02/20/2018 Appointment time: 8:00 AM [...] CDT Treatment with Pasha Wood MD [facility] [place] - Radiation Therapy ([facility] Radiation Oncology) [address] [place] [address] Feb 18, 2018 8:30 AM CDT Treatment with Pasha Wood MD [facility] [place] - [facility]iation [facility] ([facility] Radiation Oncology) [address] [place] [address] Feb 19, 2018 8:30 AM CDT Treatment with Pasha Wood MD [facility] [place] - Radiation [facility] ([facility] Radiation Oncology) [address] [place] [address] Feb 20, 2018 8:30 AM CDT Treatment with Pasha Wood [facility] ([facility] Radiation Oncology) [address] [facility] [address] Feb 21, 2018 8:30 AM CDT Treatment with Pasha Wood MD [facility] ([facility] Radiation Oncology) [address] [facility] [address] Feb 24, 2018 8:30 AM CDT Treatment with Pasha Wood MD [facility] - Radiation Therapy ([facility] Radiation Oncology) [address] [facility] [address] February 25, 2018 8:30 AM CDT Treatment with Pasha Wood MD [facility] - Radiation Therapy ([facility] Radiation Oncology) [address] [facility] [address] February 26, 2018 8:30 AM CDT Treatment with Pasha Wood MD [facility] - Radiation Therapy ([facility] Radiation Oncology) [address] [facility] [address] February 27, 2018 8:30 AM CDT Treatment with Pasha Wood MD [facility] - Radiation Therapy ([facility] Radiation Oncology) [address] [facility] [address] February 28, 2018 8:30 AM CDT Treatment with Pasha Wood MD [facility] - Radiation Therapy ([facility] Radiation Oncology) [address] [place], [place] [id number] Pending items needing follow up: None More [...] It is usually given by a health- long term care pharmacist. You or a family member may be [...] the advice of your doctor or health long term care pharmacist. Make sure you receive a puncture-resistant container to dispose of the needles and syringes once you have finished with them. Do not reuse these items. Return the container to your doctor or health long term care pharmacist for proper disposal. Talk to your staff forester regarding the use of this medicine in children. Special care may be needed. What side effects may I notice from receiving this medicine? Side effects that you should report to your doctor or health long term care pharmacist as soon as possible: allergic reactions like [...] attention (report to your doctor or health long term care pharmacist if they continue or are bothersome): pain, [...] this medicine? Visit your doctor or health long term care pharmacist for regular checks on your progress. Your condition will be monitored carefully while you are receiving this medicine. Notify your doctor or health long term care pharmacist and seek emergency treatment if you develop breathing problems; changes in vision; chest pain; severe, sudden headache; pain, swelling, warmth in the leg; trouble speaking; sudden numbness or weakness of the face, arm, or leg. These can be signs that your condition has gotten worse. If you are going to have surgery, tell your doctor or health long term care pharmacist that you are taking this medicine. Do [...] the skin to your doctor or health long term care pharmacist. NOTE:This sheet is a summary. It may [...] or concerns related to the procedure, call [phone] for Saturday-Saturday 7-5. After-hours and weekends, please call [phone] and ask for the Interventional Sample Book Maker on-call. Interventional Radiology Gastrostomy Tube (G-tube)Placement-Discharge Instructions [...] WHEN TO CALL THE DOCTOR: (Please call [phone] for severe symptoms) You have bleeding from [...] for problems or concerns related to the procedure,[phone] for Saturday-Saturday 7-5. After-hours and weekends, please [phone] and ask for the Interventional Sample Book Maker on-call. in this encounter Medications at Time [...] Pt left unit via wheelchair accompanied by GSA COORDINATOR and family for d/c to home. Complete d/c teaching provided including medication administration, lovenox administration, gtube care, and follow up appt with written instructions given to patient. Patient verbalizes understanding of all teaching. Paper scripts given to patient prior to leaving unit. * Nayana Meeks MS,CCC-GLASS BEAD MAKER - 02/14/2018 10:57 AM CDT SPEECH-LANGUAGE PATHOLOGY [...] with other means of communication (e.g. Writing) GLASS BEAD MAKER will follow to ensure diet tolerance. May benefit from GLASS BEAD MAKER upon dc in the future for speaking valve Therapist: Nayana Meeks MS,CCC-GLASS BEAD MAKER [id number] Date: 02/14/2018 * Omi Banda MD - [...] not pass through the area of compression. GLASS BEAD MAKER following. Anxiety: Due to new diagnosis. Psych [...] (placed on 02/06 through IR) + TFs. GLASS BEAD MAKER following. Had a video swallow on 02/10 [...] 8 am has been set up at [facility] ([place] [address], - ) - Rad Onc to transfer [...] 50% of the time was spent in xfpl-eh-drhs contact with the patient at bedside. Omi Banda MD Medical Oncology Hospitalist 7334 Subjective Patient is doing ok today. No [...] 20,000 Units/ sodium bicarbonate 650 mg(#) PRN (Film Color Tester from Rx), prochlorperazine Q6H PRN, simethicone Q6H [...] Pertinent radiology reviewed. Omi Banda MD Pager [phone] * uLis Hyde MD - 02/14/2018 8:54 AM CDT Formatting of this note may be different from the original. End of Treatment Summary Note Date: 02/14/2018 Kelvin Zaldivar is a 42 y.o. male. Treatment Data Summary: Site Treatment Technique Treatment dates Dose/ Fraction (cGy) Total prescribed Dose (cGy) Total # of fractions # missed days Rt neck and mediastinum 3D-EXTRUSION ENGINEER 02/01/2018 - 02/06/2018 300 1200 4 1 Rt neck and mediastinum IMRT 02/07/2018 - 02/14/2018 200 1200 6 0 Mr. Zaldivar is a 42 y.o.malewith a PMH of tobaccoism with ~30 pack year hx. He presented after transfer from [facility] in [place] after evaluation for dysphagia &voice hoarseness revealed [...] of 3 Gy (12 Gy total) using 3D-EXTRUSION ENGINEER. Concurrent chemotherapy was then initiated with cisplatin/ [...] a follow up with radiation oncology in [place], [place]. Luis Hyde MD PGY-3 Radiation Oncology [...] not pass through the area of compression. GLASS BEAD MAKER following. Anxiety: Due to new diagnosis. Psych [...] (placed on 02/06 through IR) + TFs. GLASS BEAD MAKER following. Had a video swallow on 02/10 [...] 8 am has been set up at [facility] [place] [address], - [place] - Rad Onc to work [...] 50% of the time was spent in ogmb-nk-tyvs contact with the patient at bedside. Omi Banda MD Medical Oncology Hospitalist 0572 Subjective Patient is doing ok today. No [...] 20,000 Units/ sodium bicarbonate 650 mg(#) PRN (Film Color Tester from Rx), prochlorperazine Q6H PRN, simethicone Q6H [...] Pertinent radiology reviewed. Omi Banda MD Pager [phone] * Jim Hill RN - 02/13/2018 2:13 [...] RT. RT to bedside. Patient suctioned by supervisor propellant charge loading Jim with relief. Stat CBC ordered per [...] Webb DPT Date: 02/13/2018 * Nayana Meeks MS,CCC-GLASS BEAD MAKER - 02/13/2018 9:24 AM CDT SPEECH-LANGUAGE PATHOLOGY [...] other asking regarding use of speaking valve. GLASS BEAD MAKER had previously signed off as pt not [...] Encouraged pt to contact physician for repeat GLASS BEAD MAKER orders if he is dave to redirect airflow/initiate voicing. Discussed with member of primary team. Will recommend upgrade diet as tolerated to regular/thin. Will recommend home health/outpatient GLASS BEAD MAKER in the future as indicated for speaking valve. GLASS BEAD MAKER will follow up prior to dc to ensure diet tolerance. Do not anticipate ongoing GLASS BEAD MAKER needs in near future for dysphagia. Reviewed s/s aspiration for pt/family to monitor in home environment. RECOMMENDATIONS: Regular diet with thin liquids. PEG to supplement nutrition/hydration PO meds as tolerated Swallow Precautions: 100% supervision, small bites/sips, alternate bites/sips Frequent oral care to reduce risk of aspirating bacteria in oral secretions Assist pt with other means of communication (e.g. Writing) GLASS BEAD MAKER will follow to ensure diet tolerance. May benefit from GLASS BEAD MAKER upon dc in the future for speaking [...] therapy post acute hospitalization. Therapist: Nayana Meeks MS,[facility]-GLASS BEAD MAKER [id number] Date: 02/13/2018 * Carrol Rogers, RT - [...] Date: 02/13/2018 Torres AC=Airway clearance AM=Aerosolized medication BA=[place] aerosol DB&C=Deep breathe & cough FEV1=Forced expiratory volume in first second) IC=Inspiratory capacity LE=Lung expansion MDI=Metered dose inhaler Neb=Nebulizer O2=Oxygen Oxim=Oximetry PEFR=Peak expiratory flow rate CURTAIN FRAMER=Rapid Response Team * James Leahy, PT - 02/12/2018 3:02 PM CDT PHYSICAL THERAPY NOTE PT to patient room and patient agreeable to walk. Upon sitting edge of bed patient became nauseous with dry heaving. RN summoned for anti-emesis medication and given. This therapist returned thirty minutes later and patient declined ambulation on the account of continued nausea. Patient agreeable to ambulate with staff combat information center officer later when feeling better. PT will follow [...] not pass through the area of compression. GLASS BEAD MAKER following. Anxiety: Due to new diagnosis. Psych [...] (placed on 02/06 through IR) + TFs. GLASS BEAD MAKER following. Had a video swallow on 02/10 [...] am has been set up at [facility] [place] [address], Ph- [phone]) - Rad Onc SW to work on [...] 50% of the time was spent in yifd-hd-txib contact with the patient at bedside. Omi Banda MD Medical Oncology Hospitalist 5545 Subjective Patient is doing ok today. No [...] 20,000 Units/ sodium bicarbonate 650 mg(#) PRN (Film Color Tester from Rx), prochlorperazine Q6H PRN, simethicone Q6H [...] Pertinent radiology reviewed. 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 Nino Subjective Kelvin [...] 20,000 Units/ sodium bicarbonate 650 mg(#) PRN (Film Color Tester from Rx), prochlorperazine Q6H PRN, simethicone Q6H [...] Diagnostics Review: Pertinent radiology reviewed. Winsome Guido, SALESPERSON FLYING SQUAD [phone] * Felisa Alvarenga, OT - 02/11/2018 2:30 PM CDT Formatting of this note may be different from the original. OCCUPATIONAL THERAPY ASSESSMENT NOTE Patient Name: Kelvin Zaldivar Room[facility]Bed: [id number] [facility] [place] Admitting Diagnosis: Neck/chest mass Neck mass Past [...] family will determine if they stay at [facility] or elsewhere. 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 Cleans dentures, washes face and hands. GLASS BEAD MAKER arrives for eval. Activity Tolerance Sitting Balance: [...] DC with SO to home or [facility] [place] after training) Equipment Recommendations: (bath chair or sink bath method initially) Recommend ongoing assistance for: In and out of house, Transfers, Bed mobility, Ambulation, Stairs Therapist: Felisa Luo, OTR [id number] Date: 02/11/2018 * Luna Mcclellan DO - [...] and concentration: appropriate Cognition: alert Language: fluent, Samoan speaker Fund of knowledge/vocabulary: average Gait: unable [...] between 8am and 3pm on weekends at [phone]. Otherwise, page the resident physician in radiology air traffic controller center. DO Tj Harris Scott, PT - 02/11/2018 [...] not pass through the area of compression. GLASS BEAD MAKER following. Anxiety: Due to new diagnosis. Psych [...] (placed on 02/06 through IR) + TFs. GLASS BEAD MAKER following. Had a video swallow on 02/10 [...] script for choi check. - Evaluated bu GLASS BEAD MAKER, will advance to mechanical soft diet. - [...] 50% of the time was spent in ovkx-jm-mrma contact with the patient at bedside. Omi Banda MD Medical Oncology Hospitalist 5513 Subjective Patient is doing ok today. No [...] 20,000 Units/ sodium bicarbonate 650 mg(#) PRN (Film Color Tester from Rx), prochlorperazine Q6H PRN, simethicone Q6H [...] Pertinent radiology reviewed. Omi Banda MD Pager [phone] * Yane Dubois, JOSE G - 02/11/2018 [...] Date: 02/10/2018 Torres AC=Airway clearance AM=Aerosolized medication BA=[place] aerosol DB&C=Deep breathe & cough FEV1=Forced expiratory volume in first second) IC=Inspiratory capacity LE=Lung expansion MDI=Metered dose inhaler Neb=Nebulizer O2=Oxygen Oxim=Oximetry PEFR=Peak expiratory flow rate CURTAIN FRAMER=Rapid Response Team * Lavinia Baker OT - [...] pt may benefit from short stay in [facility] setting. I attempted to see him for [...] > Still awaiting send out path from [place] (immunostain for NUT). ID #Possible pneumonia - [...] Transitioned to Med/Surg status on 02/09. Per mixed livestock farmer , patient does not have options for home health and thus will need to be able to complete care for tracheostomy and PEG tube on his own/with assistance of significant other on discharge. Code Status:Full Code Patient was seen and discussed with Dr. Shipley. Antonio Stover DO MS Internal Medicine, PGY-1 Pager [phone] ATTESTATION I personally performed the torres portions [...] 000 Units/ sodium bicarbonate 650 mg(#) PRN (Film Color Tester from Rx), prochlorperazine Q6H PRN, simethicone Q6H [...] new radiology to review. * Nayana Meeks MS,[facility]-GLASS BEAD MAKER - 02/10/2018 1:22 PM CDT SPEECH-LANGUAGE PATHOLOGY VIDEOSWALLOW ASSESSMENT EVALUATION SUMMARY Videoswallow Summary*: A videoswallow summary was completed at this date. Pt known to this GLASS BEAD MAKER from onset of this hospital admission. Pt [...] in oral secretions Ongoing dysphagia management from GLASS BEAD MAKER. Ongoing GLASS BEAD MAKER at next level of care. MBSImp Scale: [...] Acute Hospitalization. Prognosis*: Good NOMS Dysphagia Rating*: 7-Face-[place] Dysphagia -Swallow safe but usually requires mod [...] transferred to the ICU on 02/06/18 following CURTAIN FRAMER for progressive hypoxemia and rising O2 requirements [...] from respiratory status changes. Therapist: Nayana Meeks MS,CCC-GLASS BEAD MAKER [id number] Date: 02/10/2018 * Wilton Isidro RN - [...] cleared for PO, goal diet: Regular/textures per GLASS BEAD MAKER, however would continue with goal for 100% [...] Status: Not met;Ongoing Karen Salcedo, RD, LD, [facility] *[id number] * Susu Bee, PT - 02/10/2018 9:58 [...] Mental / Cognitive Status: Alert;Oriented;Cooperative;Tracheostomy Persons Present: Social And Human Services Assistant Pain: Patient has no complaint of pain Comments: Trach shield to humidified air only (21%) Ambulation Assist: Independent Mobility in Community without Device Patient Owned Equipment: None Home Situation: Lives with Family Type of Home: House Entry Stairs: 1-2 Stairs In-Home Stairs: No Stairs 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 ID #Possible pneumonia - [...] Transition to Med/Surg status on 02/09. Per mixed livestock farmer, patient does not have options for home [...] 000 Units/ sodium bicarbonate 650 mg(#) PRN (Film Color Tester from Rx), prochlorperazine Q6H PRN, simethicone Q6H [...] radiology to review. Homa Owen MD Pager [phone] * Andrew Sanchez, JOSE G - 02/09/2018 7:50 AM CDT 0730 [...] videoswallow evaluation 02/10. Therapist: Yelitza Garber M.A. CF-GLASS BEAD MAKER Voalte: [id number] Pager: [phone] Weekend Acute Pager: [phone] Date: 02/08/2018 * Hilda Dong, JOSE G [...] will discuss in rounds tomorrow. * Chon Lou MD - 02/08/2018 11:31 AM CDT Formatting [...] > Still awaiting send out path from [place] (immunostain for NUT). ID #Leukocytosis #Possible pneumonia [...] transition to Med/Surg status on 02/09. Per mixed livestock farmer, patient does not have options for home [...] 20,000 Units/ sodium bicarbonate 650 mg(#) PRN (Film Color Tester from Rx), simethicone Q6H PRN Vital Signs: [...] radiology to review. 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 Winsome Guido, SALESPERSON FLYING SQUAD [phone] Associated attestation - ObinnaCaesar MD - 02/07/2018 4:38 PM CDT I have reviewed subjective and objective findings with the nurse practitioner and I have personally interviewed and examined the patient. The INDUSTRIAL RELATIONS MANAGER's assessment and plan correspond to my own medical decision making. 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 Relatively low burden metastatic disease. Disc/Rec: Reviewed diagnostic findings and treatment plan with patient's sister. We are now at Day 5 of cycle 1 of Carbo/PUMP INSTALLATION AND SERVICER-16. XRT is ongoing. The chemotherapy was tolerated [...] between 8am and 3pm on weekends at [phone]. Otherwise, page the resident physician in radiology air traffic controller center. Subjective: Kelvin Zaldivar was seen today with [...] 20,000 Units/ sodium bicarbonate 650 mg(#) PRN (Film Color Tester from Rx), polyethylene glycol 3350 BID PRN [...] normal Attention span and concentration: fair Language: Samoan, fluent Fund of knowledge and vocabulary: appropriate [...] and between 8am and 3pm on weekends [phone]. Otherwise, page the resident physician in radiology air traffic controller center. Staff name: Karen Craven DO Date: 02/07/2018 * Nayana Meeks MS,CCC-GLASS BEAD MAKER - 02/07/2018 9:28 AM CDT SPEECH-LANGUAGE PATHOLOGY [...] prior to diet initiation. No further acute GLASS BEAD MAKER needs at this time. GLASS BEAD MAKER will sign off. RECOMMENDATIONS Assist pt with other means of communication (e.g. Writing, mouthing words) When medically appropriate, will benefit from videoswallow study to assess swallow. Therapist: Nayana Meeks MS,[facility]-GLASS BEAD MAKER [id number] Date: 02/07/2018 * Pablo Martinez RN - [...] transition to Med/Surg status on 02/08. Per mixed livestock farmer, patient does not have options for home [...] vomiting, diarrhea, chest pain, headache. Sister from [place] is at bedside and requests to speak with Oncology team. Luzma Onc INDUSTRIAL RELATIONS MANAGER air traffic controller center, notified and stated they would see patient [...] 20,000 Units/ sodium bicarbonate 650 mg(#) PRN (Film Color Tester from Rx), polyethylene glycol 3350 BID PRN [...] radiology to review. Homa Owen MD Pager [phone] Associated attestation - Gabrielle Bay MD - [...] of ICU level care. Gabrielle Bay MD [phone] * Homa Owen MD - 02/06/2018 5:34 [...] of ICU level care. Gabrielle Bay MD [phone] * Carl Terry, RN - 02/06/2018 4:55 [...] Current Oral Intake: NPO Estimated Calorie Needs: 7352-4365 (28-32 kcal/kg admit wt of 79.1 kg) [...] 72 Hours Status: Not met;Ongoing Yelitza Cook Electric Power Machine Operator *[id number] Associated attestation - Karen Salcedo, SHAN - 02/06/2018 1:39 PM CDT Agree with international banker's follow-up assessment/recommendations, however noted team's adjustment to EN order since international banker's visit - will page with recommendation to return to Isosource 1.5 goal rate 65ml/hr. 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 Wet Trimmer visit with the patient, asked how was he feeling today. He nodded and thumbs up as (good). The spiritual care team is available as needed, 20/05, through the campus switchboard ([phone]). For immediate response, please page [phone]. For a response within 24 hours, please submit an order in O2 for a facing machine operator consult or call the administrative voicemail at [phone]. Please page or use consult order if patinet requests visit. Wet Trimmer will continue to follow. Date/Time: User: Pager: [phone] 02/06/2018 10:34 AM Desi Butt PCU 2 [...] Last Shower: 02/05/18 New Events or Follow-up: CURTAIN FRAMER called at 0313, pt transferred to ICU [...] 40mg lasix, mucomyst, 62.5 solumedrol Patient transferred: [id number] * Lily Bello MD - 02/06/2018 3:54 [...] He is transferred to the ICU following CURTAIN FRAMER for progressive hypoxemia and rising O2 requirements [...] He received lasix and steroids x1 during CURTAIN FRAMER; will hold on further/additional diuresis and systemic [...] coarse breath sounds and decreased air entry. CURTAIN FRAMER was called later due to sao2 in [...] dysphagia &voice hoarseness; evaluated by ENT in [place] who noted b/l paralyzed vocal cords. CT [...] changed to cuffless by ENT on 01/29. GLASS BEAD MAKER following. Anxiety: -Due to new diagnosis. 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 Subjective [...] 20,000 Units/ sodium bicarbonate 650 mg(#) PRN (Film Color Tester from Rx), polyethylene glycol 3350 BID PRN, potassium chloride SR PRN OR potassium chloride PRN, sodium phosphate IVPB PRN (Film Color Tester from Rx) AND Phosphorus DAILY AM AND* [...] dysphagia &voice hoarseness; evaluated by ENT in [place] who noted b/l paralyzed vocal cords. CT [...] changed to cuffless by ENT on 01/29. GLASS BEAD MAKER following. Anxiety: -Due to new diagnosis. - [...] placement as he will need to have intermediate reliable enteral nutrition till chemo/RT can starting [...] 50% of the time was spent in xmtj-xz-fitx contact with the patient at bedside. Subjective [...] 20,000 Units/ sodium bicarbonate 650 mg(#) PRN (Film Color Tester from Rx), polyethylene glycol 3350 BID PRN, potassium chloride SR PRN OR potassium chloride PRN, sodium phosphate IVPB PRN (Film Color Tester from Rx) AND Phosphorus DAILY AM AND* [...] (Last 24 hours) Glucose: (!) 129 (02/04/18 8868) Radiology and other Diagnostics Review: Pertinent radiology [...] between 8am and 3pm on weekends at [phone]. Otherwise, page the resident physician in radiology air traffic controller center. Subjective: Kelvin Zaldivar was seen today with [...] 20,000 Units/ sodium bicarbonate 650 mg(#) PRN (Film Color Tester from Rx), polyethylene glycol 3350 BID PRN, potassium chloride SR PRN OR potassium chloride PRN 40 mEq at 01/26/18 1143, sodium phosphate IVPB PRN (Film Color Tester from Rx) AND Phosphorus DAILY AM AND [...] normal Attention span and concentration: fair Language: Samoan, fluent Fund of knowledge and vocabulary: appropriate [...] and between 8am and 3pm on weekends [phone]. Otherwise, page the resident physician in radiology air traffic controller center. Staff name: Karen Craven, Date: 02/04/2018 * [...] MRI Donald- negative for evidence of mass [facility] Radiology Review (per verbal report) - [...] 20,000 Units/ sodium bicarbonate 650 mg(#) PRN (Film Color Tester from Rx), polyethylene glycol 3350 BID PRN, potassium chloride SR PRN OR potassium chloride PRN, sodium phosphate IVPB PRN (Film Color Tester from Rx) AND Phosphorus DAILY AM AND [...] Diagnostics Review: Pertinent radiology reviewed. Winsome Guido, SALESPERSON FLYING SQUAD [phone] * Yusuf Hernandez RN - 02/04/2018 7:14 [...] dysphagia &voice hoarseness; evaluated by ENT in [place] who noted b/l paralyzed vocal cords. CT [...] changed to cuffless by ENT on 01/29. GLASS BEAD MAKER following. Anxiety: - Due to new diagnosis. [...] placement as he will need to have intermediate reliable enteral nutrition till chemo/RT can starting [...] 50% of the time was spent in vhor-fd-mhfg contact with the patient at bedside. Subjective [...] 20,000 Units/ sodium bicarbonate 650 mg(#) PRN (Film Color Tester from Rx), polyethylene glycol 3350 BID PRN, potassium chloride SR PRN OR potassium chloride PRN, sodium phosphate IVPB PRN (Film Color Tester from Rx) AND Phosphorus DAILY AM AND [...] Current Oral Intake: NPO Estimated Calorie Needs: 6608-1874 (28-32 kcal/kg admit wt of 79.1 kg) [...] discussion of PEG placement is ongoing. Note GLASS BEAD MAKER d/c'd speaking valve as pt not tolerating [...] Status: Partially met;Ongoing Jossy Vargas, RD, LD [phone] * Stewart Webb, PT - 02/03/2018 3:54 [...] MRI Donald- negative for evidence of mass [facility] Radiology Review (per verbal report) - [...] 20,000 Units/ sodium bicarbonate 650 mg(#) PRN (Film Color Tester from Rx), polyethylene glycol 3350 BID PRN, potassium chloride SR PRN OR potassium chloride PRN, sodium phosphate IVPB PRN (Film Color Tester from Rx) AND Phosphorus DAILY AM AND [...] Diagnostics Review: Pertinent radiology reviewed. Winsome Guido, SALESPERSON FLYING SQUAD [phone] Associated attestation - Caesar Yeboah MD - 02/03/2018 3:53 PM CDT I have reviewed subjective and objective findings with the nurse practitioner and I have personally interviewed and examined the patient. The INDUSTRIAL RELATIONS MANAGER's assessment and plan correspond to my own medical decision making. 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 Day 1 of Cycle 1 of CDDP and PUMP INSTALLATION AND SERVICER-16 today. Treatment plan reviewed with patient. Caesar [...] dysphagia &voice hoarseness; evaluated by ENT in [place] who noted b/l paralyzed vocal cords. CT [...] changed to cuffless by ENT on 01/29. GLASS BEAD MAKER following. Anxiety: Due to new diagnosis. Controlled [...] - NPO with TFs. Hold TFs at [place]. PPx: - SCDs. Lovenox. Code: - Full [...] 50% of the time was spent in rjyf-uk-codk contact with the patient at bedside. Omi Banda MD Medical Oncology Hospitalist [phone] Subjective Patient is very anxious this morning. [...] 20,000 Units/ sodium bicarbonate 650 mg(#) PRN (Film Color Tester from Rx), potassium chloride SR PRN OR potassium chloride PRN, sodium phosphate IVPB PRN (Film Color Tester from Rx) AND Phosphorus DAILY AM AND [...] Pertinent radiology reviewed. Omi Banda MD Pager [phone] * Tracie Wright, JOSE G - 02/02/2018 [...] Samreen Benton - 02/01/2018 11:48 PM CDT Wet Trimmer Film Color Tester visited patient and provided reading material. The spiritual care team is available as needed, 20/05, through the [place] switchboard ([phone]). For immediate response, please page [phone]. For a response within 24 hours, please submit an order in O2 for a facing machine operator consult or call the administrative voicemail at [phone]. * Karen Snow RN - 02/01/2018 8:44 [...] Date: 02/01/2018 Torres AC=Airway clearance AM=Aerosolized medication BA=[place] aerosol DB&C=Deep breathe & cough FEV1=Forced expiratory volume in first second) IC=Inspiratory capacity LE=Lung expansion MDI=Metered dose inhaler Neb=Nebulizer O2=Oxygen Oxim=Oximetry PEFR=Peak expiratory flow rate CURTAIN FRAMER=Rapid Response Team * Latisha Solano, SALESPERSON FLYING SQUAD - 02/01/2018 7:05 AM CDT Formatting of [...] & voice hoarseness; evaluated by ENT in [place] who noted b/l paralyzed vocal cords. CT [...] dysphagia & voice hoarseness that started 3w [facility]; seen in clinics & ERs; treated w/ steroids/amoxicillin w/o improvement - seen by ENT in [place] & underwent laryngoscopy - b/l vocal chord [...] - consistent with poorly differentiated carcinoma - GLASS BEAD MAKER following - TS 28% - onc & [...] with Dr Goldberg. Latisha Solano, PATRICK Pager [phone] M2 pager [phone] Subjective: Kelvin Zaldivar is a 42 y.o. 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 Winsome Guido, SALESPERSON FLYING SQUAD [phone] Associated attestation - Lamont Nino DO - 01/31/2018 6:14 PM CDT Patient seen and examined. Medical record, including radiographic and laboratory studies, has been reviewed. The documentation of history, physical findings and plan outlined by the INDUSTRIAL RELATIONS MANAGER represent my own medical decision making. Treatment plans outlined in detail for patient. I described a course of chemotherapy with cisplatin/etoposide, including potential side effects and toxicities. All questions answered to patient's satisfaction, and he agrees to proceed as outlined next week. We have signed informed consent, and will initiate treatment tentatively on 02/04. Lamont Nino DOFORMERLY [facility] Medical Oncology Consult Service * Gabo yN MD - 01/31/2018 7:26 AM CDT Formatting [...] & voice hoarseness; evaluated by ENT in [place] who noted b/l paralyzed vocal cords. CT [...] dysphagia & voice hoarseness that started 3w [facility]; seen in clinics & ERs; treated w/ steroids/amoxicillin w/o improvement - seen by ENT in [place] & underwent laryngoscopy - b/l vocal chord [...] - consistent with poorly differentiated carcinoma - GLASS BEAD MAKER following - TS 28% Plan - onc [...] and discussed with Dr Ny. Latisha Solano, SALESPERSON FLYING SQUAD Pager [phone] M2 pager [phone] Subjective: Kelvin Zaldivar is a 42 y.o. [...] 20,000 Units/ sodium bicarbonate 650 mg(#) PRN (Film Color Tester from Rx), potassium chloride SR PRN OR potassium chloride PRN, sodium phosphate IVPB PRN (Film Color Tester from Rx) AND Phosphorus DAILY AM AND [...] Desi Butt - 01/30/2018 11:01 AM CDT Wet Trimmer Note: Admit Date: 01/24/2018 Reason for visit; Rounds. Mormonism; Zoroastrian. The patient couldn't speak loudly but tried to communicate with me by a whisper and nodding of his head. He was asked when do he think that he will be going home. He mouthed the words "hopefully today" and gave me a thumbs up. He was asked if he has good family support and he nodded yes and (smiled). The facing machine operator didn't noticed any worries or concerns, the patient was sitting up in a chair and reading a book. The facing machine operator addressed spiritual resources with the patient. The spiritual care team is available as needed, 20/05, through the campus switchboard ([phone]). For immediate response, please page [phone]. For a response within 24 hours, please submit an order in O2 for a facing machine operator consult or call the administrative voicemail at [phone]. Please page or use consult order if patient requests visit. Date/Time: User: Pager: [phone] 01/30/2018 11:01 AM Desi Butt PCU 4 [...] will tolerate speaking valve in near future. GLASS BEAD MAKER will discontinue speaking valve trials at this time, as not a candidate for speaking valve use. Pt functionally communicating wants/needs/ideas via written expression and mouthing words. Pt educated on etiology of intolerance of speaking valve, and AAC options, including writing, mouthing and use of smart phone voice to text applications. GLASS BEAD MAKER will return to further discuss potential AAC [...] to further assess swallow when medically appropriate. GLASS BEAD MAKER will be in contact with primary team. RECOMMENDATIONS Assist pt with other means of communication (e.g. Writing, mouthing words, phone apps) GLASS BEAD MAKER will follow for ongoing AAC evaluation. Will be in contact with primary team regarding evaluation of swallow when medically appropriate. Likely will require a video swallow study prior to diet initiation. Will benefit from GLASS BEAD MAKER at next level of care. Relevant Findings not previously included in GLASS BEAD MAKER documentation: Laryngeal Endoscopic Examination (01/24/18): After obtaining [...] therapy post acute hospitalization. Therapist: Kira Cardona- GLASS BEAD MAKER Student Date: 01/30/2018 Associated attestation - Nayana Meeks MS,[facility]-GLASS BEAD MAKER - 01/30/2018 10:21 AM CDT Attestation: I was present and involved in directing care of the patient throughout the speech therapy session. Nayana Meeks, MS, [facility]-GLASS BEAD MAKER [phone] * Susu Bee, PT - 01/30/2018 8:53 AM CDT PHYSICAL THERAPY PROGRESS NOTE SUBJECTIVE: Subjective Significant hospital events: Transferred from [facility] 01/24/[address] revealing large mass compressing airway, aortic arch and pulmonary artery. Pathology is pending. S/P tracheostomy, remains high risk airway (discussed briefly with team 01/27/18). 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 CT [...] dysphagia & voice hoarseness that started 3w [facility]; seen in clinics & ERs; treated w/ steroids/amoxicillin w/o improvement - seen by ENT in [place] & underwent laryngoscopy - b/l vocal chord [...] mass 01/24 - path in process - GLASS BEAD MAKER following - TS 28% Plan - onc [...] and discussed with Dr Ny. Latisha Solano, SALESPERSON FLYING SQUAD Pager [phone] M2 pager [phone] Subjective: Kelvin Zaldivar is a 42 y.o. [...] 20,000 Units/ sodium bicarbonate 650 mg(#) PRN (Film Color Tester from Rx), potassium chloride SR PRN OR potassium chloride PRN, sodium phosphate IVPB PRN (Film Color Tester from Rx) AND Phosphorus DAILY AM AND [...] immunostain for NUT is being performed at [facility] and be reported in an addendum Oncology [...] MRI Donald- negative for evidence of mass [facility] Radiology Review (per verbal report) - [...] Likely systemic treatment to be composed of belkofski doublet therapy Patient seen and discussed with [...] 20,000 Units/ sodium bicarbonate 650 mg(#) PRN (Film Color Tester from Rx), potassium chloride SR PRN OR potassium chloride PRN, sodium phosphate IVPB PRN (Film Color Tester from Rx) AND Phosphorus DAILY AM AND [...] BU IHC Reference Lab PERFORMED AT [facility] Technical Machine Results Ref Lab RESULTS WILL BW REPORTED IN AN ADDENDUM Specimen Mail SLIDES [id number] CBC AND DIFF Collection Time: 01/30/18 4:21 [...] Diagnostics Review: Pertinent radiology reviewed. Winsome Guido, SALESPERSON FLYING SQUAD [phone] Associated attestation - Lamont Nino DO - 01/30/2018 5:48 PM CDT Patient seen and examined. Medical record, including radiographic and laboratory studies, has been reviewed. The documentation of history, physical findings and plan outlined by the INDUSTRIAL RELATIONS MANAGER represent my own medical decision making. Plans for approach to management of malignancy in progress. Hopeful of being able to initiate treatment soon. Lamont Nino DO, [facility] [place]cology Consult Service * Tara Trejo, [...] to help him have a BM. * Sehn Huang - 01/29/2018 3:15 PM CDT PHYSICAL [...] Current Oral Intake: NPO Estimated Calorie Needs: 6643-4785 (28-32 kcal/kg admit wt of 79.1 kg) [...] 72 Hours Status: Partially met;Ongoing Kira Isidro, Electric Power Machine Operator, *[phone] Associated attestation - Karen Salcedo RD - 01/29/2018 2:56 PM CDT Agree with international banker's follow-up assesssment/reocmmendations as summarized. 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 Ángel Concepcion MD Pager [phone] * Gabo Ny MD - 01/29/2018 8:18 [...] & voice hoarseness; evaluated by ENT in [place] who noted b/l paralyzed vocal cords. CT [...] dysphagia & voice hoarseness that started 3w [facility]; seen in clinics & ERs; treated w/ steroids/amoxicillin w/o improvement - seen by ENT in [place] & underwent laryngoscopy - b/l vocal chord [...] mass 01/24 - path in process - GLASS BEAD MAKER following - TS 30% Plan - onc [...] floor. Vince Snider APRN Pulm/Critical Care Pager [phone] 01/29/2018 M2 team pager (2nd call/nights) [phone] __ Subjective: Kelvin Zaldivar is a 42 [...] 20,000 Units/ sodium bicarbonate 650 mg(#) PRN (Film Color Tester from Rx), potassium chloride SR PRN OR potassium chloride PRN, sodium phosphate IVPB PRN (Film Color Tester from Rx) AND Phosphorus DAILY AM AND [...] a 6.0 cuffless trach. * Nayana Meeks MS,CCC-GLASS BEAD MAKER - 01/28/2018 3:00 PM CDT SPEECH-LANGUAGE PATHOLOGY [...] follow. RECOMMENDATIONS Speaking valve placement trials with GLASS BEAD MAKER only Assist pt with other means of communication (e.g. Writing) GLASS BEAD MAKER will follow for ongoing speaking valve/AAC evaluation. [...] therapy post acute hospitalization. Therapist: Nayana Meeks MS,CCC-GLASS BEAD MAKER [phone] Date: 01/29/2018 * Radha Torres RN - 01/28/2018 11:57 AM CDT Assumed pt care at this time. Bedside safety check performed, plan of care reviewed. Pt visiting with family/friends in room, no needs at this time. * Susu Bee, PT - 01/28/2018 9:03 AM CDT PHYSICAL THERAPY PROGRESS NOTE SUBJECTIVE: Subjective Significant hospital events: Transferred from [facility] 01/24/[address] revealing large mass compressing airway, aortic arch and pulmonary artery. S/P tracheostomy, remains high risk airway (discussed briefly with team 01/27/18). 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 CT [...] dysphagia & voice hoarseness that started 3w [facility]; seen in clinics & ERs; treated w/ steroids/amoxicillin w/o improvement - seen by ENT in [place] & underwent laryngoscopy - b/l vocal chord [...] mass 01/24 - path in process - GLASS BEAD MAKER following - TS 30% Plan - onc [...] floor. Vince Snider APRN Pulm/Critical Care Pager [phone] 01/28/2018 M2 team pager (2nd call/nights) [phone] __ Subjective: Kelvin Zaldivar is a 42 [...] 20,000 Units/ sodium bicarbonate 650 mg(#) PRN (Film Color Tester from Rx), potassium chloride SR PRN OR potassium chloride PRN, sodium phosphate IVPB PRN (Film Color Tester from Rx) AND Phosphorus DAILY AM AND [...] Lavinia Baker OTR/L 6000 * Nayana Meeks, MS,CCC-GLASS BEAD MAKER - 01/27/2018 1:16 PM CDT SPEECH-LANGUAGE PATHOLOGY [...] see below. RECOMMENDATIONS Speaking valve placement with GLASS BEAD MAKER only Assist pt with other means of communication (e.g. Writing) GLASS BEAD MAKER will follow for ongoing speaking valve/AAC evaluation [...] developed dysphagia & voice hoarseness 3 weeks [facility], was given amoxicillin & steroids w/o improvement. Then was seen by ENT in [place] who noted paralyzed vocal cords, CT neck showed large right sided mass & pt was sent to the ED in [place]. Underwent CT c/a/p w/ contrast showing infiltrating [...] with stable physiologic parameters. Therapist: Nayana Meeks MS,CCC-GLASS BEAD MAKER [phone] Date: 01/27/2018 * Shen Shields, RT [...] Date: 01/27/2018 Torres AC=Airway clearance AM=Aerosolized medication BA=[place] aerosol DB&C=Deep breathe & cough FEV1=Forced expiratory volume in first second) IC=Inspiratory capacity LE=Lung expansion MDI=Metered dose inhaler Neb=Nebulizer O2=Oxygen Oxim=Oximetry PEFR=Peak expiratory flow rate CURTAIN FRAMER=Rapid Response Team * Susu Bee, PT - 01/27/2018 10:24 AM CDT PHYSICAL THERAPY ASSESSMENT SUBJECTIVE: Subjective Significant hospital events: Transferred from [facility]SH 01/24/[address] revealing large mass compressing airway, aortic arch and pulmonary artery. S/P tracheostomy, remains high risk airway (discussed briefly with team 01/27/18). 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 Winsome Guido, PATRICK [phone] Associated attestation - Lamont Nino DO - 01/27/2018 6:02 PM CDT Patient seen and examined. Medical record, including radiographic and laboratory studies, has been reviewed. The documentation of history, physical findings and plan outlined by the INDUSTRIAL RELATIONS MANAGER represent my own medical decision making. Final pathology pending. Lamont Nino DO, [facility] Medical Oncology Consult Service * Gabo Ny [...] & voice hoarseness; evaluated by ENT in [place] who noted b/l paralyzed vocal cords. CT [...] dysphagia & voice hoarseness that started 3w [facility]; seen in clinics & ERs; treated w/ steroids/amoxicillin w/o improvement - seen by ENT in [place] & underwent laryngoscopy - b/l vocal chord [...] & rad-onc following; awaiting path - consult GLASS BEAD MAKER for speaking valve Post-Op Bleeding (resolved) - [...] MICU. Vince Snider APRN Pulm/Critical Care Pager [phone] 01/27/2018 M2 team pager (2nd call/nights) [phone] __ Subjective: Kelvin Zaldivar is a 42 [...] Units/ sodium bicarbonate 650 mg(#) PRN ( Film Color Tester from Rx), potassium chloride SR PRN OR potassium chloride PRN, sodium phosphate IVPB PRN (Film Color Tester from Rx) AND Phosphorus DAILY AM AND* [...] Date: 01/27/2018 Torres AC=Airway clearance AM=Aerosolized medication BA=[place] aerosol DB&C=Deep breathe & cough FEV1=Forced expiratory volume in first second) IC=Inspiratory capacity LE=Lung expansion MDI=Metered dose inhaler Neb=Nebulizer O2=Oxygen Oxim=Oximetry PEFR=Peak expiratory flow rate CURTAIN FRAMER=Rapid Response Team * Karen Snow RN - [...] Units/ sodium bicarbonate 650 mg(#) PRN ( Film Color Tester from Rx), potassium chloride SR PRN OR potassium chloride PRN, sodium phosphate IVPB PRN (Film Color Tester from Rx) AND Phosphorus DAILY AM AND* [...] Range PH-ART-POC 7.47 (H) 7.35 - 7.45 IQE1-LGC-GND 29 (L) 35 - 45 MMHG PO2-ART-POC 62 (L) 80 - 100 MMHG Base Def-ART-POC 3.0 MMOL/L O2 Sat-ART-POC 93.0 (L) 95 - 99 % Shjgmfcepoa-QVH-XBC 20.6 (L) 21 - 28 MMOL/L BLOOD GASES, PERIPHERAL VENOUS Collection Time: 01/25/18 6:20 PM Result Value Ref Range pH-Venous 7.37 7.30 - 7.40 PCO2-Venous 41 36 - 50 MMHG PO2-Venous 58 (H) 33 - 48 MMHG Base Deficit-Venous 1.4 MMOL/L O2 Sat-Venous 87.3 (H) 55 - 71 % Tkvbphdyzlv-DCE-Cvy 23.0 MMOL/L MAGNESIUM Collection Time: 01/26/18 1:05 [...] No pertinent radiology. Alhaji Ramos MD Pager [phone] * Yusef Tomlinson RN - 01/26/2018 7:17 [...] 500ml NS, 8.7% change, pt not responsive. INDUSTRIAL RELATIONS MANAGER notified. 1200 - Noon assessment completed at [...] & voice hoarseness; evaluated by ENT in [place] who noted b/l paralyzed vocal cords. CT [...] dysphagia & voice hoarseness that started 3w [facility]; seen in clinics & ERs; treated w/ steroids/amoxicillin w/o improvement - seen by ENT in [place] & underwent laryngoscopy - b/l vocal chord [...] MICU. Vince Snider APRN Pulm/Critical Care Pager [phone] 01/26/2018 M2 team pager (2nd call/nights) [phone] __ Subjective: Kelvin Zaldivar is a 42 [...] Units/ sodium bicarbonate 650 mg(#) PRN ( Film Color Tester from Rx), potassium chloride SR PRN OR potassium chloride PRN, sodium phosphate IVPB PRN (Film Color Tester from Rx) AND Phosphorus DAILY AM AND* [...] Bello MD - 01/26/2018 1:05 AM CDT General Office Assistant Called to see patient for bleeding from [...] called ENT and they will be here early childhood assistant. She applied the thrombin spray.. Will monitor. [...] neck mass Ebony Yang please page ENT air traffic controller center with questions Subjective Kelvin Zaldivar is a [...] Units/ sodium bicarbonate 650 mg(# ) PRN (Film Color Tester from Rx), potassium chloride SR PRN OR potassium chloride PRN , sodium phosphate IVPB PRN (Film Color Tester from Rx) AND Phosphorus DAILY AM AND [...] Color,UA YELLOW Turbidity,UA 1+ (A) CLEAR-CLEAR Specific [place]-Urine 1.029 1.003 - 1.035 pH,UA 5.0 5.0 [...] pertinent radiology. Carlos A Yang MD Pager [phone] * Yusef Tomlinson RN - 01/25/2018 7:37 [...] to the chair when pt experienced nausea. INDUSTRIAL RELATIONS MANAGER at bedside, ordered Zofran. Med administered. Pt [...] & voice hoarseness; evaluated by ENT in [place] who noted b/l paralyzed vocal cords. CT [...] dysphagia & voice hoarseness that started 3w [facility]; seen in clinics & ERs; treated w/ steroids/amoxicillin w/o improvement - seen by ENT in [place] & underwent laryngoscopy - b/l vocal chord [...] care. Vince Snider APRN Pulm/Critical Care Pager [phone] 01/25/2018 M2 team pager (2nd call/nights) [phone] __ Subjective: Kelvin Zaldivar is a 42 [...] potassium chloride PRN, sodium phosphate IVPB PRN (Film Color Tester from Rx) AND Phosphorus DAILY AM AND [...] unknown Added automatically from request for surgery [id number] I spent 35 minutes (excluding time spent performing or supervising any procedures and independent of the time spent by the INDUSTRIAL RELATIONS MANAGER) providing and personally directing critical care services [...] mass. Continue ICU care monitoring. Miguel Shipley [phone] * Carl Terry, RN - 01/24/2018 5:10 [...] Date: 01/24/2018 Torres AC=Airway clearance AM=Aerosolized medication BA=[place] aerosol DB&C=Deep breathe & cough FEV1=Forced expiratory volume in first second) IC=Inspiratory capacity LE=Lung expansion MDI=Metered dose inhaler Neb=Nebulizer O2=Oxygen Oxim=Oximetry PEFR=Peak expiratory flow rate CURTAIN FRAMER=Rapid Response Team * Dennis Romero RN - [...] cultures > Received dose of solumedrol during CURTAIN FRAMER, monitor clinically and consider adding steroids to [...] Olguin, Family Medicine PGY-1 MICU 3 pager [phone] __ Primary Care Physician: No Pcp, Na [...] Range PH-ART-POC 7.50 (H) 7.35 - 7.45 TPW6-KSW-FQR 37 35 - 45 MMHG PO2-ART-POC 55 (L) 80 - 100 MMHG Base Ex-ART-POC 6.0 MMOL/L O2 Sat-ART-POC 91.0 (L) 95 - 99 % Pkuglggfrut-XFX-RWW 28.7 (H) 21 - 28 MMOL/L POC [...] Pertinent radiology reviewed. Jessica Olguin DO Pager [phone] Associated attestation - Lily Bello MD - [...] assessment. Lily Bello [phone] * Fanny Colindres, SALESPERSON FLYING SQUAD - 02/05/2018 7:16 AM CDT Formatting of [...] 20,000 Units/ sodium bicarbonate 650 mg(#) PRN (Film Color Tester from Rx), polyethylene glycol 3350 BID PRN, potassium chloride SR PRN OR potassium chloride PRN, sodium phosphate IVPB PRN (Film Color Tester from Rx) AND Phosphorus DAILY AM AND* [...] previous H&P performed on 02/04/18. Fanny Colindres, SALESPERSON FLYING SQUAD Pager [phone] * Maria Dolores Vallejo, MSN,SALESPERSON FLYING SQUAD - 02/03/2018 7:33 AM CDT Formatting of [...] 20,000 Units/ sodium bicarbonate 650 mg(#) PRN (Film Color Tester from Rx), polyethylene glycol 3350 BID PRN, potassium chloride SR PRN OR potassium chloride PRN, sodium phosphate IVPB PRN (Film Color Tester from Rx) AND Phosphorus DAILY AM AND [...] previous H&P performed on 02/02/18. Le Vallejo, MSN,SALESPERSON FLYING SQUAD Pager [phone] * Oseas Valentine MD - 01/24/2018 5:13 [...] developed dysphagia & voice hoarseness 3 weeks [facility], was given amoxicillin & steroids w/o improvement. Then was seen by ENT in [place] who noted paralyzed vocal cords, CT neck showed large right sided mass & pt was sent to the ED in [place]. Underwent CT c/a/p w/ contrast showing infiltrating [...] - Dysphagia, voice hoarseness started 3 weeks [facility], seen in clinics & ERs was given steroids/amoxicillin w/o improvement - Seen by ENT in [place] underwent laryngoscopy showing b/l vocal chord paralysis [...] Likely r/t neck mass, no infectious symptoms [facility], afebrile - Blood cx (01/24): pending - Procal 0.06 FEN - No current IVF - Replace lytes PRN - PO access tomorrow Prophylaxis Review: Lines: PIV x2 Tubes/Drains: Trach VTE PPX: SCDs only GI ppx: Not indicated Insulin: None PT/OT: Yes Code status: Full Code Dispo: ICU 63601 x 1 - pt critically ill with neck mass, tracheal narrowing, vocal cord paralysis. I spent 60 minutes providing critical care services including: performing a physical examination serially reviewing laboratory, telemetry, hemodynamic, oximetry, and respiratory data reviewing radiographic images reviewing medications managing fluids/electrolytes, antibiotics, ICU prophylaxis, and oxygenation developing the overall plan of care Patient seen and discussed with Dr. Saritha Altman [facility] Pulmonary Critical Care Pager [phone] M2 pager [phone] Primary Care Physician: No Pcp, Na HISTORY OF PRESENT ILLNESS: Kelvin Zaldivar is a 42 y.o. male w/ PMH tobaccoism developed dysphagia & voice hoarseness 3 weeks [facility], was given amoxicillin & steroids w/o improvement. Then was seen by ENT in [place] who noted paralyzed vocal cords, CT neck showed large right sided mass & pt was sent to the ED in [place]. Underwent CT c/a/p w/ contrast showing infiltrating [...] with ALTAGRACIA Barlow Internal Medicine Resident-PGY3 Pager- [phone] Admission History and Physical Examination Name: Kelvin Zaldivar Admission Date: 01/24/2018 Assessment/Plan: Active Problems: Neck mass Mr Zaldivar is a 42 year old male with no significant past medical history presenting with neck mass encasing aorta and airway, transferred on 01/24 from [facility]. 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 -Patient has seen ENT Dr. Yun for loss of voice of 3 weeks duration on January 23, laryngoscopy showed paralyzed vocal cord. -In the ED on January 23 at [facility], CT scan of the neck with contrast [...] have radiation to help shrink tumour Leucocytosis -IHP=[id number] on 01/23 at OSH, here TSQ=44659 -There are no signs of infection, no fever, this may be due to malignancy Plan: Will hold on giving antibiotics now but will do infectious work-up -Mild hyponatremia Ye=699 may be from dehydration patient is not [...] Pertinent radiology reviewed. Heidi Barker MD Pager [phone] Associated attestation - Carlos Anne DO - [...] Status: Not met;Ongoing Jossy Vargas RD, LD [phone] *[phone] * Gabo Howard MD - 02/02/2018 12:18 PM CDT Associated Order(s): CONSULT ADULT PSYCHIATRY PHYSICIAN Formatting of this note may be different from the original. PSYCHIATRY CONSULT NOTE Room/Bed: ZV6776/01 Admission Date: 01/24/2018 LOS: 9 days Consult [...] between 8am and 3pm on weekends at [phone]. Otherwise, page the resident physician in radiology air traffic controller center. Chief Concern: Anxiety History of Present Illness: [...] other illicit substance use. Psychosocial/Substance History: Born: [place], [place] Raised by: parents, grandma Hx of Abuse: denies Family/Siblings: 2 sisters, close to 1 of them Level of Education: high school Occupational Status: employed Main source of Income: job Relationships: Has fiance over 5 years, 1 sixteen yo daughter Current Living Situation: with fiance and daughter in [place] Social History Social History Marital status: Single [...] 20,000 Units/ sodium bicarbonate 650 mg(#) PRN (Film Color Tester from Rx), polyethylene glycol 3350 BID PRN, potassium chloride SR PRN OR potassium chloride PRN, sodium phosphate IVPB PRN (Film Color Tester from Rx) AND Phosphorus DAILY AM AND [...] span and concentration: intact/sustained Cognition: intact Language: czech Fund of knowledge and vocabulary: average Focused [...] and between 8am and 3pm on weekends [phone]. Otherwise, page the resident physician in radiology air traffic controller center. Staff name: Miguelito Ragsdale MD Date: 02/02/2018 * Jessica Zimmerman RD - 01/25/2018 2:27 PM CDT Associated Order(s): CONSULT DIETITIAN CLINICAL NUTRITION Clinical Nutrition Assessment Summary Nutrition Assessment of Patient: BMI Categories Adult: Acceptable: 18.5-24.9 Unintentional Weight Loss: 5% in 1 month (significant) Malnutrition Assessment: Malnutrition present Malnutrition Context: ICD-10 code E44: Acute illness/Moderate non-severe malnutrition Current Oral Intake: NPO Estimated Calorie Needs: 0146-9578 (28-32 kcal/kg admit wt of 79.1 kg) [...] Mcgovern MD Radiation Oncology Resident PGY4 Pager [phone] History of Present Illness: Kelvin Zaldivar is [...] breathing and presented to the hospital in . Imaging showed a large mediastinal mass and [...] potassium chloride PRN, sodium phosphate IVPB PRN (Film Color Tester from Rx) AND [START ON 01/25/2018] Phosphorus [...] Color,UA YELLOW Turbidity,UA 1+ (A) CLEAR-CLEAR Specific [place]-Urine 1.029 1.003 - 1.035 pH,UA 5.0 5.0 [...] Nicholson M.D. on 01/24/2018 7:[address] [facility] shows the large mediastinal mass leading to obstructed airway. Christy Mcgovern MD Radiation Oncology Resident PGY4 Pager [phone] * Winsome Guido APRN - 01/24/2018 8:29 [...] - MRI Donald- negative for evident mass [facility] Radiology Review (per verbal report) - [...] 42 y.o. male admitted in transfer from [place], [place] with new finding of large neck [...] past medical history. 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 reports current tobacco use (1.5 packs/day [...] 2.0 MMOL/L Pertinent radiology reviewed. АЛЕКСАНДР Lopez [phone] Associated attestation - AnWinsome Goncalves MD - [...] interviewed and examined this patient with oncology INDUSTRIAL RELATIONS MANAGER and confirmed the history and physical findings [...] detailed in the consultation note by oncology INDUSTRIAL RELATIONS MANAGER and I would refer you to it for additional details with which I concur. I saw and examined the patient and reviewed with oncology INDUSTRIAL RELATIONS MANAGER. Please refer to the consult note for [...] thymoma/thymic carcinoma, thyroid malignancy. - He is ukdleeczto-xaz-djphma ill at this time, therefore we believe [...] changed back to [employer]. S.O.will utilize [employer] resources and [employer] to obtain tube feed formula. Interventions ? Support Support: Patient Education, Pt/Family Updates re:POC or DC Plan ? Info or Referral Information or Referral to Community Resources: Safety Net Resources and/or Follow-up Care (Primary SW and Rad Onc SW coordinating radiation treatments to be done in [place]) ? Discharge Planning Discharge Planning: (per Lamont [...] and Availability #1: Significant Other: Britany Penny ([phone]) Does the patient use Medicaid Transportation?: No ? Next Level of Care (Acute Psych discharges only) ? Discharge Disposition Durable Medical Equipment - Selection Complete Service Request Status Selected Specialties Address Phone Number Fax Number [facility] Selected DME Services [address] [facility] [address] Destination No service has been selected for the patient. Home Care No service has been selected for the patient. Dialysis/Infusion No service has been selected for the patient. Fanny White RN, BSN, NCM [phone] * Critical Results - Mame Willoughby RN - 02/13/2018 3:10 PM CDT Critical result or procedure called (document test and value, and read back): WBC 0.8 Time MD/INDUSTRIAL RELATIONS MANAGER Notified: 1512 MD/INDUSTRIAL RELATIONS MANAGER Name: Dr. Deedee BARNES/INDUSTRIAL RELATIONS MANAGER Response/Orders Given: No new orders at this [...] coordinating radiation treatments to be done in [place]) ? Discharge Planning Discharge Planning: (per Lamont with [facility], pt set up for trach supplies and tube feeding supplies) ? Medication Needs Medication Needs: Co-Pay Check ? Financial ? Legal ? Other Disposition ? Expected Discharge Date Expected Discharge Date: 02/14/18 ? Transportation Does the patient need discharge transport arranged?: No Transportation Name, Phone and Availability #1: Significant Other: Britany Penny ([phone]) Does the patient use Medicaid Transportation?: No ? Next Level of Care (Acute Psych discharges only) ? Discharge Disposition Durable Medical Equipment - Selection Complete Service Request Status Selected Specialties Address Phone Number Fax Number [facility] Selected DME Services [address] [facility] [address] [place] Destination No service has been selected for the patient. Home Care No service has been selected for the patient. Dialysis/Infusion No service has been selected for the patient. Fanny White RN, BSN, [facility] [phone] * Case Mgmt DC Plan - Fanny [...] location, limited insurance coverage, and care needs. [facility], [facility], [facility], [facility], [facility], [facility], [facility], and [facility] have all declined. Primary SW investigating coverage for outpatient therapies. Bedside RN and SW have arranged for patient and s.o.to receive teaching at bedside on trach care. Pt will be returning to daily for radiation treatments and per attending physician, pt will f/u with Oncology. [facility] has accepted to provide tube feed supplies and trach care supplies. CIPRIANO verified with Lamont, from [facility], that portable suction will be delivered to bedside, and the remaining items will be delivered to the home. Tube feed formula is not covered by insurance. NCM spoke with [employer] , and they could provide 3 cases per month if s.o.is able to pick this up. NCM discussed with [facility] [employer] to request funding for assistance. Covering NCM [...] and Availability #1: Significant Other: Britany Penny ([phone]) Does the patient use Medicaid Transportation?: No ? Next Level of Care (Acute Psych discharges only) ? Discharge Disposition Durable Medical Equipment - Selection Complete Service Request Status Selected Specialties Address Phone Number Fax Number [facility] Selected DME Services [address] [facility] [address] Destination No service has been selected for the patient. Home Care No service has been selected for the patient. Dialysis/Infusion No service has been selected for the patient. Fanny White RN, BSN, [facility] [phone] * Case Mgmt DC Leora Conteh - 02/11/2018 11:31 AM CDT Request for Benefits Received request from [facility] Minna Lovelace to check outpatient PT benefits for patient. Outpatient PT Benefits: Subject to deductible, coinsurance and out of pocket max. Must be prescribed by a physician Deductible: $2500 Deductible Remaining: $0 Coinsurance: 20% OOP Max: $4500 OOP Max met: $2280.43 OOP Remaining: $2219.57 Once OOP Max is met the patient is covered at 100% Leora Fontana Computational Physicist For further assistance please contact [facility] Minna Lovelace *[phone] * Case Mgmt DC [...] himself. Pt will have SO come to [facility] for trach teaching. Per bedside RN she [...] moved closer to his home. Pt stated [place] would be closest town. SW asked Pt if he would want to stay at [facility], pt declined. Pt's girlfriend will be at [facility] and Saturday for teaching. Will plan for discharge Saturday if pt and SO are comfortable with trach /peg maintainence. SW provided in-network list for outpt PT near his home and explained benefits. SHAHZAD spoke to Ivet Guido, she will arrange for pt to have oncology appointment in [place]. SHAHZAD spoke to Esthela Cantor/onc SHAHZAD. She [...] and Availability #1: Significant Other: Britany Penny ([phone]) Does the patient use Medicaid Transportation?: No [...] voice mail from Britany received 02/11. Called [phone] and unable to leave message as it [...] and Availability #1: Significant Other: Britany Penny ([phone]) Does the patient use Medicaid Transportation?: No [...] patient. Ryan Mcbride RN MSN ONC Nurse Pelletizer Operator Pg [phone] [phone] * Case Mgmt DC Plan - [place] [...] consult. Awaiting sessions from today. SW tasked COTTON JAMMER to check benefits. Patient has limited options for HH at discharge due to the area he lives in ([place], [place]). SNF/IPR Benefits In-Network Copay $0 Deductible remaining [...] and Availability #1: Significant Other: Britany Penny ([phone]) Does the patient use Medicaid Transportation?: No ? Next Level of Care (Acute Psych discharges only) ? Discharge Disposition [place] Karimi LMSW [phone] (phone) [phone] (pager) * Case Mgmt DC Plan - Hilda Michael - 02/10/2018 2:33 PM CDT Formatting of this note may be different from the original. In-Network IPR and SNF Benefits Summary for Kelvin Zaldivar Requested by: ROBBY Yousif Benefit(s) checked: IPR and SNF Payor: COVENTRY / Plan: COVENTRY PPO / Product Type: PPO / ( ) Distribution Designer: Crystal Lezama Reference Number: [id number] Pt's Plan Active: Yes Effective Date: 10/28/2017 Benefit Period: Calendar Year Prior Auth Required: Yes: (P: [phone]) SNF/IPR Benefits In-Network Copay $0 Deductible remaining $0 Coinsurance after deductible 80/20 Out of Pocket Max remaining $2216.57 SNF Days/IPR Days remaining 60 This junior technical writer provided ROBBY Yousif with a directory of IPRs and SNFs that are in-network with pt's primary payer. Hilda Michael Computational Physicist For additional assistance, please contact ROBBY Yousif *[phone] * Case Mgmt DC Plan - Tory [...] and Availability #1: Significant Other: Britany Penny ([phone]) Does the patient use Medicaid Transportation?: No [...] patient. Ryan Mcbride RN MSN ONC Nurse Pelletizer Operator Pg [phone] * Transfer - Homa Owen MD - [...] transferred to the ICU on 02/06/18 following CURTAIN FRAMER for progressive hypoxemia and rising O2 requirements [...] XRT on 02/10 AM. Consults: Speech, Onc, Stock Roller, Psych Follow-Up Items: De-escalate abx on 02/10 and complete 7 day course. Activity/Weight bearing status: As tolerated, PT & OT following. Nutrition: Tube feeds; video swallow on 02/10 per Speech Discharge Plan: Transition to Med/Surg status on 02/09. Per mixed livestock farmer, patient does not have options for home [...] further notification. Homa Owen MD Team Pager [phone] * Case Mgmt DC Tory Valerio RN [...] Supplies, Home Infusion- Enteral-TPN, Home Health [facility] [phone] will need to be notified when patient [...] and Availability #1: Significant Other: Britany Penny ([phone]) Does the patient use Medicaid Transportation?: No [...] patient. Ryan Mcbride RN MSN ONC Nurse Pelletizer Operator Pg [phone] * Case Mgmt DC Tory Valerio RN [...] Health Patient transferred to ICU overnight. Contacted [facility] with Roxane to inform of patient's status and likely no discharge for next few days. She would inform the [place], [place] branch of this. Contacted [facility] and spoke with Hollis. She relates that they are not in network with patient's insurance. Spoke to Joyce with [facility] [phone]. They doesn't do HH in that area. Spoke with Miracle with [facility] [phone]. They don't go to [place]. Spoke with Leighann at [facility] [phone]. They don't cross into [place]. Spoke with Nitza at [facility] [phone]. She wasn't sure about the insurance but requested information be faxed to [phone] for heavy equipment sales manager to review. [facility] called back stating that they do not have staffing to meet patient's needs. Medication Needs ? Financial ? Legal ? Other Disposition ? Expected Discharge Date Expected Discharge Date: 02/10/18 ? Transportation Does the patient need discharge transport arranged?: No Transportation Name, Phone and Availability #1: Significant Other: Britany Penny ([phone]) Does the patient use Medicaid Transportation?: No [...] patient. Ryan Mcbride RN MSN ONC Nurse Pelletizer Operator Pg [phone] * Response Teams - Shira Motley RN [...] on-going "cancer treatments" to be coordinated in [place] at [address]. [address] drive will be easier for them to manage on a intermediate school teacher basis. Discussed the option of staying at [facility] and continue treatments at [facility]. states that she is unable to stay with the pt ([place] requirement) and does not have any other [...] an appropriate caregiver after discharge. -->Addendum 1340: [phone][facility] deliver portable suction to bedside Saturday morning/afternoon, agency would prefer to be present to receive education. Humidified air and formula will be delivered to home address vs Saturday, local [place] branch will work out delivery details with . -->Addendum 6637: Enteral formula is not covered under pts insurance, [facility] will reach out to to discuss OOP costs of formula and coordinate delivery. ? Info or Referral -[facility] the [place] area. Faxed referral for trach and enteral supplies to this provider. Awaiting to back from agency regarding delivery and insurance coverage. -[facility] p: : [id number] -[facility] p: ): does not take trach's -[facility] p: : not accepting trach patients -[facility] p; : checking insurance, if [...] and Availability #1: Significant Other: Britany Penny ([phone]) Does the patient use Medicaid Transportation?: No ? Next Level of Care (Acute Psych discharges only) ? Discharge Disposition Durable Medical Equipment No service has been selected for the patient. [facility] Destination No service has been selected for the patient. Home Care No service has been selected for the patient. Dialysis/Infusion No service has been selected for the patient. Molly Jacobs RN Nurse Pelletizer Operator Pager: [phone] * Procedures (Immed Post or Bedside) - [...] X4 during shift. * Patient Education - Skyal Aguiar, PHARMD - 02/03/2018 2:23 PM CDT [...] Post-Procedure Condition: stable Jerzy Wilkinson MD Pager [phone] * Transfer - Latisha Solano, PATRICK - [...] & voice hoarseness; evaluated by ENT in [place] who noted b/l paralyzed vocal cords. CT [...] Discharge Plan: ongoing Latisha Solano APRN Pager [phone] M2 team pager (2nd call/nights) [phone] * Care Plan - Radha Torres RN [...] Other Patient lives in a private home ([place], [place]) with his spouse, Britany, and his daughter. There are 2 steps to enter the home and home is one level. 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 Disposition ? Expected Discharge Date Expected Discharge Date: 02/05/18 ? Transportation Does the patient need discharge transport arranged?: No Transportation Name, Phone and Availability #1: Significant Other: Britany Penny ([phone]) Does the patient use Medicaid Transportation?: No ? Next Level of Care (Acute Psych discharges only) ? Discharge Disposition Tacos Kar[facility] [place] [facility] [place] [phone] (phone) [phone] (pager) * Care Plan - Konrad Wilde - 01/27/2018 11:19 AM CDT Problem: Tobacco Use Goal: Knowledge of tobacco-use cessation methods Outcome: Goal Ongoing [facility] CONSULTATION ASSESSMENT/RECOMMENDATIONS [facility] Use Treatment Practical Counseling was [...] after discharge. Post discharge support referral: Declined [facility] Tobacco Quitline due to inability to speak currently. Provided telephone contact information. rubberit Educational Material: Accepted History of Present Illness [...] can be of further assistance, please call rubberit [phone] * Anesthesia Post Op Day 1 - Lexy Charlton SRNA - 01/25/2018 12:46 PM CDT Formatting of this note may be different from the original. Anesthesia Follow-Up Evaluation: Post-Procedure Day One Name: Kelvin Zaldivar : 1975 Age: 42 y.o. Sex : male Procedure Date: 01/24/2018 Procedure: Procedure(s) with comments: TRACHEOSTOMY BRONCHOSCOPY Through tracheostomy - CPT 20499 Physical Assessment Height: 201.2 cm (79.2") Weight: [...] Units/ sodium bicarbonate 650 mg(# ) PRN (Film Color Tester from Rx), potassium chloride SR PRN OR potassium chloride PRN , sodium phosphate IVPB PRN (Film Color Tester from Rx) AND Phosphorus DAILY AM AND [...] Stable to MICU Lizzeth Luna MD Pager [phone] ATTESTATION I was present for the entire [...] RN - 01/24/2018 12:28 PM CDT 1230: CURTAIN FRAMER follow up complete. Pt resting comfortably, no [...] home is one level. 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 Pt is able to drive. Pt has no past medical history prior to this encounter and was on no medications. This is pt's first hospitalization. Pt's S.O. will drive him home on DC. - Pt does not have a PCP. Pt saw a Dr. Yun with ENT in [place], [place] prior to admission. - Pt does not own any DME. Has never had HH services. Has never stayed in a SNF / IPR /LTACH. No history of home infusions. - Pt has [employer] insurance through his employer. Pt reports he would use the [facility] [employer] in [place], [place] on DC. Plan Plan: CM Assessment, Discharge Planning for Home Anticipated, Assist PRN with /NCM Services Discharge Plan: DC Date / final needs undetermined at this time. Pt going to OR today with ENT for likely trach. This TNM discussed potential DC needs of HH and trach care on DC. Will continue to follow closely for DC Planning. Patient Address/Phone [address] [facility] [address] (home) Emergency Contact Extended Emergency Contact Information Primary Emergency Contact: Britany Penny [facility] Mobile Relation: Significant Other Healthcare Directive Transportation Does the patient need discharge transport arranged?: No Transportation Name, Phone and Availability #1: Significant Other: Britany Penny ([phone]) Does the patient use Medicaid Transportation?: No [...] Resources ? Coverage Primary Insurance: Commercial insurance (Dash) Secondary Insurance: No insurance Additional Coverage: RX [...] ? Outpatient Therapy PT: No OT: No GLASS BEAD MAKER: No ? Fci Facility/Long Term SNF: No NH: No ? Inpatient Rehab IPR: No ? Long-Term Acute Care Hospital LTACH: No ? Acute Hospital Stay Acute Hospital Stay: No KAUR Duque, RN Nurse Pelletizer Operator - Med 1 Service Pager: [phone] * Response Teams - Carlos Mccall RN - 01/24/2018 9:42 AM CDT Rapid Response Team Progress Note Date: 01/24/2018 Time: 9:47 AM Patient: Kelvin Zaldivar Attending: Carlos Anne DO Service: Med 2041 Admission Date: 01/24/2018 LOS: 0 days A Code/Rapid Response Timeline Event Report has been created for this patient on 01/24 at 0940. CURTAIN FRAMER called for evaluation of transport to ICU for closer monitoring of airway. Pt planned for ENT surgery today. After discussion between Dr. Flores and Dr. Hooper, plan will be to admit patient to ICU following procedure. Ok for patient to remain in current level of care until time of procedure. Primary care RN updated, ok with plan. Please call CURTAIN FRAMER for any further concern or changes in [...] CDT Transfer accepted from the ER at [facility] in [place]. Patient has no significant past medical history. [...] Specimen Performing Laboratory Blood MAIN LAB [address] [place] [address] * MAGNESIUM (02/14/2018 2:10 AM) Component Value Ref Range Magnesium 1.7 1.6 - 2.6 mg/dL Specimen Performing Laboratory Blood [facility]U MAIN [facility] [address] [place] [address] * COMPREHENSIVE METABOLIC PANEL (02/14/2018 2:10 AM) [...] Specimen Performing Laboratory Blood MAIN LAB [address] [place] [address] * CBC AND DIFF (02/14/2018 2:10 AM) [...] Manual Specimen Performing Laboratory Blood MAIN LAB [address] [place], [place] [id number] * CBC (02/13/2018 2:30 PM) Component Value [...] [place] Specimen Performing Laboratory Blood MAIN LAB [address] [place] [address] * PHOSPHORUS (02/13/2018 3:25 AM) Component Value Ref Range Phosphorus 3.1 2.0 - 4.0 MG/DL Specimen Performing Laboratory Blood MAIN LAB [address] [place] [address] * MAGNESIUM (02/13/2018 3:25 AM) Component Value Ref Range Magnesium 1.7 1.6 - 2.6 mg/dL Specimen Performing Laboratory Blood MAIN LAB [address] [place] [address] * COMPREHENSIVE METABOLIC PANEL (02/13/2018 3:25 AM) [...] Performing Laboratory Blood [facility] MAIN [facility] [address] [place] [address] * CBC AND DIFF (02/13/2018 3:25 AM) [...] K/UL Specimen Performing Laboratory Blood MAIN LAB [address] [place] [address] * CULTURE-URINE W/SENSITIVITY (02/12/2018 4:45 AM) Component Value Ref Range Battery Name URINE CULTURE Specimen Description URINE Special Requests NONE Culture NO GROWTH Report Status FINAL 02/13/2018 Specimen Performing Laboratory Urine [facility] MA[facility] [address] [place], [place] [id number] * PHOSPHORUS (02/12/2018 3:45 AM) Component Value Ref Range Phosphorus 2.7 2.0 - 4.0 MG/DL Specimen Performing Laboratory Blood MAIN LAB [address] [place], [place] [id number] * MAGNESIUM (02/12/2018 3:45 AM) Component Value Ref Range Magnesium 1.7 1.6 - 2.6 mg/dL Specimen Performing Laboratory Blood MAIN LAB [address] [place], [place] [id number] * COMPREHENSIVE METABOLIC PANEL (02/12/2018 3:45 AM) [...] Specimen Performing Laboratory Blood MAIN LAB [address] [place] [address] * CBC AND DIFF (02/12/2018 3:45 AM) [...] Specimen Performing Laboratory Blood MAIN LAB [address] [place] [address] * CULTURE-BLOOD W/SENSITIVITY (02/11/2018 2:10 PM) Component Value Ref Range Battery Name BLOOD CULTURE Specimen Description BLOOD LEFT ANTECUBITAL Special Requests NONE Culture NO GROWTH 5 DAYS Report Status FINAL 02/17/2018 Specimen Performing Laboratory Blood MAIN LAB [address] [place] [address] * CULTURE-BLOOD W/SENSITIVITY (02/11/2018 2:08 PM) Component Value Ref Range Battery Name BLOOD CULTURE Specimen Description BLOOD LEFT PORT Special Requests NONE Culture NO GROWTH 5 DAYS Report Status FINAL 02/17/2018 Specimen Performing Laboratory Blood MAIN LAB [address] [place] [address] * PHOSPHORUS (02/11/2018 5:11 AM) Component Value Ref Range Phosphorus 3.0 2.0 - 4.0 MG/DL Specimen Performing Laboratory Blood MAIN LAB [address] [place] [address] * MAGNESIUM (02/11/2018 5:11 AM) Component Value Ref Range Magnesium 1.8 1.6 - 2.6 mg/dL Specimen Performing Laboratory Blood MAIN LAB [address] [place] [address] * COMPREHENSIVE METABOLIC PANEL (02/11/2018 5:11 AM) [...] Specimen Performing Laboratory Blood MAIN LAB [address] [place] [address] * CBC AND DIFF (02/11/2018 5:11 AM) [...] Performing Laboratory Blood [facility] [address] [place] [address] * SWALLOW MOTION SERIES (02/10/2018 11:55 AM) [...] Specimen Performing Laboratory Blood MAIN LAB [address] [place] [address] * MAGNESIUM (02/10/2018 1:58 AM) Component Value Ref Range Magnesium 1.9 1.6 - 2.6 mg/dL Specimen Performing Laboratory Blood MAIN LAB [address] [place] [address] * COMPREHENSIVE METABOLIC PANEL (02/10/2018 1:58 AM) [...] questions. Specimen Performing Laboratory Blood MAIN LAB [address] [place] [address] * CBC AND DIFF (02/10/2018 1:58 AM) [...] K/UL Specimen Performing Laboratory Blood MAIN LAB [address] [place] [address] * VRE SCREEN (02/10/2018 1:55 AM) Component Value Ref Range Battery Name VRE SCREEN Specimen Description PERIRECTAL SWAB Special Requests NONE Culture NO VRE ISOLATED Report Status FINAL 02/11/2018 Specimen Performing Laboratory Perirectal Swab MAIN LAB [address] [place] [address] * PHOSPHORUS (02/09/2018 2:21 AM) Component Value Ref Range Phosphorus 3.1 2.0 - 4.0 MG/DL Specimen Performing Laboratory Blood MAIN LAB [address] [place] [address] * MAGNESIUM (02/09/2018 2:21 AM) Component Value Ref Range Magnesium 1.9 1.6 - 2.6 mg/dL Specimen Performing Laboratory Blood MAIN LAB [address] [place] [address] * COMPREHENSIVE METABOLIC PANEL (02/09/2018 2:21 AM) [...] Performing Laboratory Blood [facility] [address] [place] [address] * CBC AND DIFF (02/09/2018 2:21 AM) [...] Performing Laboratory Blood [facility] MAIN [facility] [address] [place] [address] * ABDOMEN AP ONLY (02/08/2018 10:07 AM) [...] Performing Laboratory Blood [facility] [address] [place] [address] * PHOSPHORUS (02/08/2018 3:35 AM) Component Value Ref Range Phosphorus 3.3 2.0 - 4.0 MG/DL Specimen Performing Laboratory Blood MAIN LAB [address] [place] [address] * MAGNESIUM (02/08/2018 3:35 AM) Component Value Ref Range Magnesium 2.0 1.6 - 2.6 mg/dL Specimen Performing Laboratory Blood MAIN LAB [address] [place] [address] * COMPREHENSIVE METABOLIC PANEL (02/08/2018 3:35 AM) [...] Specimen Performing Laboratory Blood MAIN LAB [address] [place] [address] * CBC AND DIFF (02/08/2018 3:35 AM) [...] K/UL Specimen Performing Laboratory Blood MAIN LAB [address] [place] [address] * SODIUM-URINE RANDOM (02/07/2018 11:56 AM) Component Value Ref Range Sodium, Random 35 MMOL/L Specimen Performing Laboratory Urine MAIN LAB [address] [place] [address] * CREATININE-URINE RANDOM (02/07/2018 11:56 AM) Component Value Ref Range Creatinine, Random 79 MG/DL Specimen Performing Laboratory Urine MAIN LAB [address] [place] [address] * URIC ACID (02/07/2018 4:40 AM) Component Value Ref Range Uric Acid 6.5 4.0 - 8.0 MG/DL Specimen Performing Laboratory Blood MAIN LAB [address] [place] [address] * PHOSPHORUS (02/07/2018 4:40 AM) Component Value Ref Range Phosphorus 4.8 (H) 2.0 - 4.0 MG/DL Specimen Performing Laboratory Blood MAIN LAB [address] [place], [place] [id number] * MAGNESIUM (02/07/2018 4:40 AM) Component Value Ref Range Magnesium 2.1 1.6 - 2.6 mg/dL Specimen Performing Laboratory Blood MAIN LAB [address] [place] [address] * COMPREHENSIVE METABOLIC PANEL (02/07/2018 4:40 AM) [...] Specimen Performing Laboratory Blood MAIN LAB [address] [place] [address] * PROTIME INR (PT) (02/07/2018 4:40 AM) Component Value Ref Range INR 1.6 (H) 0.8 - 1.2 Specimen Performing Laboratory Blood MAIN LAB [address] [place] [address] * CBC AND DIFF (02/07/2018 4:40 AM) [...] Blood [facility]U MAIN LAB [address] [place] [address] * 2-D + DOPPLER ECHOCARDIOGRAM (02/06/2018 2:36 [...] 0.77 E/E' ratio 8.22 CV ECHO PV GRIP Amber RN LV mass 81.37 96 - 200 g RWT 0.54 <=0.42 TV rest pulmonary artery NA mmHg pressure Cardiology Ultrasound Siemens [id number] Machine Left Ventricle Mass Index 40.48 50 [...] Sat-Arterial 92.0 (L) 95 - 99 % Xnzbprtwmzt-OPZ-Dzq 28.1 (H) 21 - 28 MMOL/L Specimen Performing Laboratory Blood, arterial - Blood [facility] MAIN [facility] [address] [place] [address] * CULTURE-BLOOD W/SENSITIVITY (02/06/2018 5:56 AM) Component Value Ref Range Battery Name BLOOD CULTURE Specimen Description BLOOD LEFT ART STICK Special Requests NONE Culture NO GROWTH 5 DAYS Report Status FINAL 02/12/2018 Specimen Performing Laboratory Blood MAIN LAB [address] [place] [address] * STREPTOCOCCUS PNEUMO AG, URINE (02/06/2018 5:30 AM) Component Value Ref Range Battery Name STREP PNEUMO AG, UR Specimen Description URINE Special Requests NONE Antigen NEGATIVE Report Status FINAL 02/06/2018 Specimen Performing Laboratory Urine MAIN LAB [address] [place] [address] * LEGIONELLA ANTIGEN URINE,RAN (02/06/2018 5:30 AM) Component Value Ref Range Battery Name LEGIONELLA URINE ANTIGEN Specimen Description URINE Special Requests NONE Antigen NEGATIVE Report Status FINAL 02/06/2018 Specimen Performing Laboratory Urine MAIN LAB [address] [place] [address] * CULTURE-URINE W/SENSITIVITY (02/06/2018 5:30 AM) Component Value Ref Range Battery Name URINE CULTURE Specimen Description URINE Special Requests NONE Culture NO GROWTH Report Status FINAL 02/07/2018 Specimen Performing Laboratory Urine MAIN LAB [address] [place] [address] * CULTURE-BLOOD W/SENSITIVITY (02/06/2018 5:07 AM) Component Value Ref Range Battery Name BLOOD CULTURE Specimen Description BLOOD LEFT PORT Special Requests NONE Culture NO GROWTH 5 DAYS Report Status FINAL 02/12/2018 Specimen Performing Laboratory Blood MAIN LAB [address] [place] [address] * GRAM STAIN (02/06/2018 4:15 AM) Component Value Ref Range Battery Name GRAM STAIN Specimen Description TRACHEAL ASPIRATE Special Requests NONE Gram Stain GREATER THAN 25/LPF NEUTROPHILS 10-25/LPF SQUAMOUS EPITHELIAL CELLS MANY MIXED BACTERIA Report Status FINAL 02/06/2018 Specimen Performing Laboratory Tracheal Aspirate MAIN LAB [address] [place] [address] * CULTURE-RESP,LOWER W/SENSITIVITY (02/06/2018 4:15 AM) Component Value Ref Range Battery Name LOWER RESP CULTURE Specimen Description TRACHEAL ASPIRATE Special Requests NONE Direct Gram Stain GREATER THAN 25/LPF NEUTROPHILS 10-25/LPF SQUAMOUS EPITHELIAL CELLS MANY MIXED BACTERIA Culture Heavy growth NORMAL OROPHARYNGEAL WHIT Report Status FINAL 02/08/2018 Specimen Performing Laboratory Tracheal Aspirate MAIN LAB [address] [place] [address] * URIC ACID (02/06/2018 3:58 AM) Component Value Ref Range Uric Acid 8.3 (H) 4.0 - 8.0 MG/DL Specimen Performing Laboratory MAIN LAB [address] [place] [address] * LACTIC ACID (BG - RAPID LACTATE) (02/06/2018 3:58 AM) Component Value Ref Range Lactic Acid,BG 1.4 0.5 - 2.0 MMOL/L Specimen Performing Laboratory Blood MAIN LAB [address] [place] [address] * PROCALCITONIN (02/06/2018 3:58 AM) Component Value Ref Range Procalcitonin 0.25 (H) <0.10 NG/ML Specimen Performing Laboratory Blood MAIN LAB [address] [place] [address] * CBC (02/06/2018 3:58 AM) Component Value [...] [place] Specimen Performing Laboratory Blood MAIN LAB [address] [place] [address] * COMPREHENSIVE METABOLIC PANEL (02/06/2018 3:58 AM) [...] questions. Specimen Performing Laboratory Blood MAIN LAB [address] [place] [address] * TROPONIN-I (02/06/2018 3:58 AM) Component Value Ref Range Troponin-I 0.03 0.0 - 0.05 NG/ML Specimen Performing Laboratory Blood MAIN LAB [address] [place] [address] * PHOSPHORUS (02/06/2018 3:58 AM) Component Value Ref Range Phosphorus 4.8 (H) 2.0 - 4.0 MG/DL Specimen Performing Laboratory Blood MAIN LAB [address] [place] [address] * MAGNESIUM (02/06/2018 3:58 AM) Component Value Ref Range Magnesium 2.0 1.6 - 2.6 mg/dL Specimen Performing Laboratory Blood MAIN LAB [address] [place] [address] * BNP (B-TYPE NATRIURETIC PEPTI) (02/06/2018 3:58 AM) Component Value Ref Range B Type Natriuretic 153.0 (H) 0 - 100 PG/ML Peptide Specimen Performing Laboratory Blood MAIN LAB [address] [place] [address] * PHOSPHORUS (02/06/2018 3:34 AM) Component Value Ref Range Phosphorus 4.7 (H) 2.0 - 4.0 MG/DL Specimen Performing Laboratory Blood MAIN LAB [address] [place] [address] * MAGNESIUM (02/06/2018 3:34 AM) Component Value Ref Range Magnesium 2.0 1.6 - 2.6 mg/dL Specimen Performing Laboratory Blood MAIN LAB [address] [place], [place] [address] * COMPREHENSIVE METABOLIC PANEL (02/06/2018 3:34 AM) [...] Specimen Performing Laboratory Blood MAIN LAB [address] [place] [address] * CBC (02/06/2018 3:34 AM) Component Value [...] Performing Laboratory Blood KU MAIN LAB [address] [place] [address] * POC IONIZED CALCIUM (02/06/2018 3:27 AM) Component Value Ref Range Ionized Calcium-POC 1.23 1.0 - 1.3 MMOL/L Specimen Performing Laboratory [facility] MAIN LAB [address] [place] [address] * POC SODIUM (02/06/2018 3:27 AM) Component Value Ref Range Sodium-POC 138 137 - 147 MMOL/L Specimen Performing Laboratory [facility] [address] [place] [address] * POC POTASSIUM (02/06/2018 3:27 AM) Component Value Ref Range Potassium-POC 4.3 3.5 - 5.1 MMOL/L Specimen Performing Laboratory [facility] [address] [place] [address] * POC HEMATOCRIT (02/06/2018 3:27 AM) Component Value Ref Range Hemoglobin POC 13.6 13.5 - 16.5 GM/DL Hematocrit POC 40.0 40 - 50 % Specimen Performing Laboratory [facility] [address] [place], [place] [id number] * POC BLOOD GAS ARTERIAL (02/06/2018 3:27 AM) Component Value Ref Range PH-ART-POC 7.50 (H) 7.35 - 7.45 DRZ7-ETM-AFL 37 35 - 45 MMHG PO2-ART-POC 55 (L) 80 - 100 MMHG Base Ex-ART-POC 6.0 MMOL/L O2 Sat-ART-POC 91.0 (L) 95 - 99 % Kbaoekvoaaq-OHO-YDH 28.7 (H) 21 - 28 MMOL/L Specimen Performing Laboratory [facility] [address] [place], [place] [phone] * POC GLUCOSE (02/06/2018 3:21 AM) Component Value Ref Range Glucose, POC 105 (H) 70 - 100 MG/DL Specimen Performing Laboratory [facility] [address] [place] [address] * BLOOD BANK SAMPLE HOLD (02/06/2018 3:12 AM) Component Value Ref Range BB Sample hold IN LAB Specimen Performing Laboratory [facility] [address] [place] [address] * LACTIC ACID (BG - RAPID LACTATE) (02/06/2018 3:12 AM) Component Value Ref Range Lactic Acid,BG 1.4 0.5 - 2.0 MMOL/L Specimen Performing Laboratory Blood [facility] [address] [place], [place] [phone] * PTT (APTT) (02/06/2018 3:12 AM) Component Value Ref Range APTT 28.7 21.0 - 39.0 SEC Specimen Performing Laboratory Blood MAIN LAB [address] [place] [address] * PROTIME INR (PT) (02/06/2018 3:12 AM) Component Value Ref Range INR 1.1 0.8 - 1.2 Specimen Performing Laboratory Blood MAIN LAB [address] [place] [address] * COMPREHENSIVE METABOLIC PANEL (02/06/2018 2:20 AM) [...] Specimen Performing Laboratory Blood MAIN LAB [address] [place] [address] * CBC AND DIFF (02/06/2018 2:20 AM) [...] Performing Laboratory Blood [facility] [address] [place] [address] * CHEST SINGLE VIEW (02/06/2018 2:13 AM) [...] CONTRAST:50 mL of Isovue 300 CATHETER: 18 Jordanian Ross G tube COMPLICATIONS: None TECHNIQUE/FINDINGS: Following [...] over the wire into the stomach.A 18 Jordanian Ross gastrostomy tube was placed over the [...] 50 mL of Isovue 300 CATHETER: 18 Jordanian Ross G tube COMPLICATIONS: None TECHNIQUE/FINDINGS: Following [...] the wire into the stomach. A 18 Jordanian Ross gastrostomy tube was placed over the [...] Specimen Performing Laboratory Blood MAIN LAB [address] [place] [address] * CBC AND DIFF (02/05/2018 4:50 AM) [...] Specimen Performing Laboratory Blood MAIN LAB [address] [place] [address] * COMPREHENSIVE METABOLIC PANEL (02/04/2018 2:58 AM) [...] Performing Laboratory Blood [facility] [address] [place] [address] * CBC AND DIFF (02/04/2018 2:58 AM) [...] Performing Laboratory Blood [facility] [address] [place] [address] * VRE SCREEN (02/03/2018 10:27 PM) Component Value Ref Range Battery Name VRE SCREEN Specimen Description PERIRECTAL SWAB Special Requests NONE Culture NO VRE ISOLATED Report Status FINAL 02/05/2018 Specimen Performing Laboratory Perirectal Swab [facility] [address] [place] [address] * IR CENTRAL VENOUS CATHETER (02/03/2018 8:43 [...] and upper superior vena cava. A 5 Jordanian vascular sheath and Kumpe catheter were then [...] and upper superior vena cava. A 5 Jordanian vascular sheath and Kumpe catheter were then [...] questions. Specimen Performing Laboratory Blood MAIN LAB [address] [place] [address] * CBC AND DIFF (02/03/2018 6:57 AM) [...] Specimen Performing Laboratory Blood MAIN LAB [address] [place] [address] * TROPONIN-I (02/02/2018 2:46 AM) Component Value Ref Range Troponin-I 0.02 0.0 - 0.05 NG/ML Specimen Performing Laboratory Blood MAIN LAB [address] [place] [address] * COMPREHENSIVE METABOLIC PANEL (02/02/2018 2:46 AM) [...] Specimen Performing Laboratory Blood MAIN LAB [address] [place] [address] * CBC AND DIFF (02/02/2018 2:46 AM) [...] Performing Laboratory Blood [facility] [address] [place] [address] * COMPREHENSIVE METABOLIC PANEL (02/01/2018 3:43 AM) [...] Specimen Performing Laboratory Blood MAIN LAB [address] [place] [address] * CBC AND DIFF (02/01/2018 3:43 AM) [...] Specimen Performing Laboratory Blood MAIN LAB [address] [place] [address] * PHOSPHORUS (01/31/2018 3:53 AM) Component Value Ref Range Phosphorus 4.9 (H) 2.0 - 4.0 MG/DL Specimen Performing Laboratory Blood MAIN LAB [address] [place] [address] * MAGNESIUM (01/31/2018 3:53 AM) Component Value Ref Range Magnesium 2.1 1.6 - 2.6 mg/dL Specimen Performing Laboratory Blood MAIN LAB [address] [place] [address] * COMPREHENSIVE METABOLIC PANEL (01/31/2018 3:53 AM) [...] Specimen Performing Laboratory Blood MAIN LAB [address] [place] [address] * CBC AND DIFF (01/31/2018 3:53 AM) [...] Specimen Performing Laboratory Blood MAIN LAB [address] [place] [address] * ABDOMEN AP ONLY (01/30/2018 8:14 AM) [...] Specimen Performing Laboratory Blood MAIN LAB [address] [place] [address] * MAGNESIUM (01/30/2018 4:21 AM) Component Value Ref Range Magnesium 1.9 1.6 - 2.6 mg/dL Specimen Performing Laboratory Blood MAIN LAB [address] [place] [address] * COMPREHENSIVE METABOLIC PANEL (01/30/2018 4:21 AM) [...] Specimen Performing Laboratory Blood MAIN LAB [address] [place] [address] * CBC AND DIFF (01/30/2018 4:21 AM) [...] Specimen Performing Laboratory Blood MAIN LAB [address] [place] [address] * MISCELLANEOUS SURGICAL PATHOLOGY REFERENCE LAB TEST (01/29/2018 10:00 AM) Component Value Ref Range Test NUT BU IHC Reference Lab PERFORMED AT [facility] Technical Machine Results Ref Lab RESULTS WILL BW REPORTED IN AN ADDENDUM Specimen Mail SLIDES [id number] Specimen Performing Laboratory REFERENCE LAB * CBC [...] Performing Laboratory Blood [facility]IN [facility] [address] [place] [address] * COMPREHENSIVE METABOLIC PANEL (01/29/2018 4:07 AM) [...] Specimen Performing Laboratory Blood MAIN LAB [address] [place] [address] * PHOSPHORUS (01/29/2018 4:07 AM) Component Value Ref Range Phosphorus 4.4 (H) 2.0 - 4.0 MG/DL Specimen Performing Laboratory Blood MAIN LAB [address] [place] [address] * MAGNESIUM (01/29/2018 4:07 AM) Component Value Ref Range Magnesium 2.0 1.6 - 2.6 mg/dL Specimen Performing Laboratory Blood MAIN LAB [address] [place] [address] * CBC AND DIFF (01/28/2018 3:51 AM) [...] K/UL Specimen Performing Laboratory Blood MAIN LAB [address] [place] [address] * COMPREHENSIVE METABOLIC PANEL (01/28/2018 3:51 AM) [...] questions. Specimen Performing Laboratory Blood MAIN LAB [address] [place] [address] * PHOSPHORUS (01/28/2018 3:51 AM) Component Value Ref Range Phosphorus 3.8 2.0 - 4.0 MG/DL Specimen Performing Laboratory Blood MAIN LAB [address] [place] [address] * MAGNESIUM (01/28/2018 3:51 AM) Component Value Ref Range Magnesium 2.0 1.6 - 2.6 mg/dL Specimen Performing Laboratory Blood MAIN LAB [address] [place] [address] * CBC AND DIFF (01/27/2018 3:57 AM) [...] Performing Laboratory Blood [facility] MAIN [facility] [address] [place] [address] * COMPREHENSIVE METABOLIC PANEL (01/27/2018 3:57 AM) [...] Performing Laboratory Blood [facility] MAIN [facility] [address] [place] [address] * PHOSPHORUS (01/27/2018 3:57 AM) Component Value Ref Range Phosphorus 2.8 2.0 - 4.0 MG/DL Specimen Performing Laboratory Blood [facility] MAIN LAB [address] [place] [address] * MAGNESIUM (01/27/2018 3:57 AM) Component Value Ref Range Magnesium 1.9 1.6 - 2.6 mg/dL Specimen Performing Laboratory Blood [facility] MAIN [facility] [address] [place] [address] * CORTISOL,RANDOM (01/26/2018 5:50 AM) Component Value Ref Range Cortisol, Random 26.6 (H) 5.0 - 20.0 MCG/DL Specimen Performing Laboratory Blood [facility] MAIN [facility] [address] [place] [address] * CHEST SINGLE VIEW (01/26/2018 1:05 AM) [...] SEC Specimen Performing Laboratory Blood MAIN LAB [address] [place] [address] * PROTIME INR (PT) (01/26/2018 1:05 AM) Component Value Ref Range INR 1.3 (H) 0.8 - 1.2 Specimen Performing Laboratory Blood MAIN LAB [address] [place] [address] * CBC AND DIFF (01/26/2018 1:05 AM) [...] K/UL Specimen Performing Laboratory Blood MAIN LAB [address] [place] [address] * COMPREHENSIVE METABOLIC PANEL (01/26/2018 1:05 AM) [...] questions. Specimen Performing Laboratory Blood MAIN LAB [address] [place] [address] * PHOSPHORUS (01/26/2018 1:05 AM) Component Value Ref Range Phosphorus 3.2 2.0 - 4.0 MG/DL Specimen Performing Laboratory Blood [facility] MAIN [facility] [address] [place] [address] * MAGNESIUM (01/26/2018 1:05 AM) Component Value Ref Range Magnesium 1.9 1.6 - 2.6 mg/dL Specimen Performing Laboratory Blood [facility] MAIN [facility] [address] [place] [address] * BLOOD GASES, PERIPHERAL VENOUS (01/25/2018 6:20 PM) Component Value Ref Range pH-Venous 7.37 7.30 - 7.40 PCO2-Venous 41 36 - 50 MMHG PO2-Venous 58 (H) 33 - 48 MMHG Base Deficit-Venous 1.4 MMOL/L O2 Sat-Venous 87.3 (H) 55 - 71 % Dkogrcdoaev-HPS-Bqz 23.0 MMOL/L Specimen Performing Laboratory Blood, venous - Blood [facility] MAIN LAB [address] [place] [address] * POC BLOOD GAS ARTERIAL (01/25/2018 3:14 PM) Component Value Ref Range PH-ART-POC 7.47 (H) 7.35 - 7.45 FMV8-FKT-EED 29 (L) 35 - 45 MMHG PO2-ART-POC 62 (L) 80 - 100 MMHG Base Def-ART-POC 3.0 MMOL/L O2 Sat-ART-POC 93.0 (L) 95 - 99 % Qezcvyndnqi-BJJ-EJD 20.6 (L) 21 - 28 MMOL/L Specimen Performing Laboratory [facility] MAIN [facility] [address] [place] [address] * ABDOMEN AP ONLY (01/25/2018 10:39 AM) [...] Specimen Performing Laboratory Blood MAIN LAB [address] [place] [address] * CBC AND DIFF (01/25/2018 3:16 AM) [...] Specimen Performing Laboratory Blood MAIN LAB [address] [place] [address] * PHOSPHORUS (01/25/2018 3:16 AM) Component Value Ref Range Phosphorus 5.6 (H) 2.0 - 4.0 MG/DL Specimen Performing Laboratory Blood MAIN LAB [address] [place] [address] * MAGNESIUM (01/25/2018 3:16 AM) Component Value Ref Range Magnesium 2.0 1.6 - 2.6 mg/dL Specimen Performing Laboratory Blood [facility] MAIN [facility] [address] [place] [address] * SURGICAL PATHOLOGY (01/24/2018 6:05 PM) Component Value Ref Range PATHOLOGY REPORT [facility] [email or web address] Department of Pathology and Laboratory Medicine [address] [place] [address] Surgical Pathology Office:[phone]:[phone] SURGICAL PATHOLOGY REPORT NAME: KELVIN ZALDIVAR SURG PATH #: [id number] MR #: [id number] SPECIMEN CLASS: SR BILLING #: [id number] ALT ID #:LOCATION: [id number] DATE OF PROCEDURE: [...] for NUT performed on block A2 at [facility] is negative in the tumor cells. ALTAGRACIA [...] immunostain for NUT is being performed at [email or web address] and be reported in an addendum PD-L1: Results: % Positive: 20% PD-L1 test name: DAKO PD-L1 IHC 22C3 pharmDX Cell types evaluated: Tumor cells Pursuant to the Peeled Potato Inspector Program at the [facility] Pathology Department, selected slides from this [...] of Pathology and Laboratory Medicine of the [facility] ([employer]) in compliance with CLIA'88 [...] of Pathology and Laboratory Medicine of the [facility].It has not been cleared or approved by the FDA.The FDA has determined that such clearance or approval is not necessary. Specimen Performing Laboratory [facility] LAB RESULTS * OSMOLALITY-URINE RANDOM (01/24/2018 6:00 PM) Component Value Ref Range Osmolality-Urine 847 50 - 1,400 MOS/KG Specimen Performing Laboratory Urine [facility] [address] [place] [address] * CREATININE-URINE RANDOM (01/24/2018 6:00 PM) Component Value Ref Range Creatinine, Random 222 MG/DL Specimen Performing Laboratory Urine [facility] [address] [place] [address] * SODIUM-URINE RANDOM (01/24/2018 6:00 PM) Component Value Ref Range Sodium, Random 146 MMOL/L Specimen Performing Laboratory Urine [facility] [address] [place] [address] * URINALYSIS, MICROSCOPIC (01/24/2018 6:00 PM) Component Value Ref Range WBCs,UA 0-2 0 - 2 /HPF RBCs,UA 0-2 0 - 3 /HPF MucousUA TRACE Specimen Performing Laboratory Urine MAIN LAB [address] [place] [address] * URINALYSIS DIPSTICK (01/24/2018 6:00 PM) Component Value Ref Range Color,UA YELLOW Turbidity,UA 1+ (A) CLEAR-CLEAR Specific [place]-Urine 1.029 1.003 - 1.035 pH,UA 5.0 5.0 - 8.0 Protein,UA NEG NEG-NEG Glucose,UA NEG NEG-NEG Ketones,UA 1+ (A) NEG-NEG Bilirubin,UA NEG NEG-NEG Blood,UA NEG NEG-NEG Urobilinogen,UA NORMAL NORM-NORMAL Nitrite,UA NEG NEG-NEG Leukocytes,UA NEG NEG-NEG Urine Ascorbic Acid, UA NEG NEG-NEG Specimen Performing Laboratory Urine [facility] MAIN [facility] [address] [place] [address] * IR PERCUTANEOUS BIOPSY (01/24/2018 5:51 PM) [...] Specimen Performing Laboratory Blood MAIN LAB [address] [place] [address] * PHOSPHORUS (01/24/2018 5:30 PM) Component Value Ref Range Phosphorus 3.9 2.0 - 4.0 MG/DL Specimen Performing Laboratory Blood MAIN LAB [address] [place] [address] * MAGNESIUM (01/24/2018 5:30 PM) Component Value Ref Range Magnesium 1.9 1.6 - 2.6 mg/dL Specimen Performing Laboratory Blood MAIN LAB [address] [place] [address] * BASIC METABOLIC PANEL (01/24/2018 5:30 PM) [...] Specimen Performing Laboratory Blood MAIN LAB [address] [place] [address] * CBC (01/24/2018 5:30 PM) Component Value [...] Specimen Performing Laboratory Blood MAIN LAB [address] [place] [address] * FLOW CYTOMETRY (01/24/2018 5:00 PM) Component Value Ref Range PATHOLOGY REPORT [facility] [email or web address] Marjorie Tobar MD, Director of Clinical Laboratory Seven Reyes MD, Director of Flow Cytometry Laboratory Department of Pathology and Laboratory Medicine [address] [place] [address] Surgical Pathology Office:[phone]:[phone] FLOW CYTOMETRY REPORT NAME: KELVIN ZALDIVAR SURG PATH #: [id number] MR #: [id number] SPECIMEN CLASS: LC BILLING #: [id number] ALT ID #:LOCATION: [facility] DATE OF PROCEDURE: 01/24/2018 AGE:42 SEX: M DATE RECEIVED: 01/25/2018 : 1975TIME RECEIVED:08:52 PHYSICIAN: LEXI VARELA DATE OF REPORT: 01/25/2018 COPY TO: DO SARITHA SIL[facility] [place] DATE OF PRINTIN01/25/2018 Material Received: [...] Markers (% Positive Cells): CD19=8; CD20=8; CD23=0; [place]=4; Lambda=4; [place]:Lambda ratio=1.0 T Cell Associated Markers (% Positive Cells): CD2=82; CD3=78; CD4=29; CD5=70; CD7=78; CD8=46 CD4:CD8 ratio=0.6 Miscellaneous Markers (% Positive Cells): CD10=1; CD34=0; CD38=64; TX44=880; CD56=7; FMC7=0; JD799=9 Cell Viability (%): 92 Number of Cells Analyzed:24,863 Total Number of Markers: 23 Summary of Marker Combinations: [place]/Lambda/5/10/19/45/38/20;FMC7/23/5/34/200 /45/19;2/7/5/3/4/45/56/8 This test was developed and its performance characteristics determined by the [facility] Flow Cytometry Laboratory.It has not been cleared or approved by the U.S. Food and Drug Administration (FDA).The FDA has determined that such clearance or approval is not necessary. Specimen Performing Laboratory LAB RESULTS * LEUKEMIA/LYMPHOMA PANEL FLUID/TISSUE (01/24/2018 5:00 PM) Component Value Ref Range Leuk/Lymph Interpretation SEE PATHOLOGY REPORT Specimen/LLM RIGHT NECK MASS BIOPSY Specimen Performing Laboratory MAIN LAB [address] [place] [address] * CULTURE-TB (AFB) (01/24/2018 5:00 PM) Component Value Ref Range Battery Name AFB CULTURE Specimen Description BIOPSY R neck mass Special Requests NONE Culture NO GROWTH OF MYCOBACTERIA AT 6 WEEKS Report Status FINAL 03/17/2018 Specimen Performing Laboratory Biopsy MAIN LAB [address] [place] [address] * CULTURE-FUNGAL,OTHER (01/24/2018 5:00 PM) Component Value Ref Range Battery Name FUNGUS CULTURE Specimen Description BIOPSY R neck mass Special Requests NONE Culture NO GROWTH OF FUNGUS AT 4 WEEKS Report Status FINAL 02/24/2018 Specimen Performing Laboratory Biopsy MAIN LAB [address] [place] [address] * CULTURE-ANAEROBIC (01/24/2018 5:00 PM) Component Value Ref Range Battery Name ANAEROBE CULTURE Specimen Description BIOPSY R neck mass Special Requests NONE Culture NO ANAEROBES ISOLATED Report Status FINAL 01/29/2018 Specimen Performing Laboratory Biopsy MAIN LAB [address] [place] [address] * CULTURE-WOUND/TISSUE/FLUID(AEROBIC ONLY)W/SENSITIVITY (01/24/2018 5:00 PM) Component Value Ref Range Battery Name ROUTINE CULTURE Specimen Description BIOPSY R neck mass Special Requests NONE Culture NO GROWTH 5 DAYS Report Status FINAL 01/29/2018 Specimen Performing Laboratory Biopsy [facility] MAIN LAB [address] [place] [address] * CHEST 2 VIEWS (01/24/2018 2:38 AM) [...] 15.0 NG/ML Specimen Performing Laboratory MAIN LAB [address] [place] [address] * LACTIC ACID(LACTATE) (01/24/2018 2:16 AM) Component Value Ref Range Lactic Acid 1.2 0.5 - 2.0 MMOL/L Specimen Performing Laboratory Blood MAIN LAB [address] [place] [address] * PROCALCITONIN (01/24/2018 2:16 AM) Component Value Ref Range Procalcitonin 0.06 <0.10 NG/ML Specimen Performing Laboratory Blood MAIN LAB [address] [place] [address] * CULTURE-BLOOD W/SENSITIVITY (01/24/2018 2:16 AM) Component Value Ref Range Battery Name BLOOD CULTURE Specimen Description BLOOD LEFT HAND Special Requests NONE Culture NO GROWTH 5 DAYS Report Status FINAL 01/30/2018 Specimen Performing Laboratory Blood [facility] [address] [place] [address] * CULTURE-BLOOD W/SENSITIVITY (01/24/2018 2:00 AM) Component Value Ref Range Battery Name BLOOD CULTURE Specimen Description BLOOD LEFT FA Special Requests NONE Culture NO GROWTH 5 DAYS Report Status FINAL 01/30/2018 Specimen Performing Laboratory Blood [facility] [address] [place] [address] * LDH-LACTATE DEHYDROGENASE (01/24/2018 12:54 AM) Component Value Ref Range Lactate Dehydrogenase 367 (H) 100 - 210 U/L Specimen Performing Laboratory MAIN LAB [address] [place] [address] * BETA-HCG (01/24/2018 12:54 AM) Component Value Ref Range Beta-HCG,Serum 1 <5 U/L Specimen Performing Laboratory MAIN LAB [address] [place] [address] * C REACTIVE PROTEIN (CRP) (01/24/2018 12:54 AM) Component Value Ref Range C-Reactive Protein 2.41 (H) <1.0 MG/DL Specimen Performing Laboratory MAIN LAB [address] [place] [address] * COMPREHENSIVE METABOLIC PANEL (01/24/2018 12:54 AM) [...] Specimen Performing Laboratory Blood MAIN LAB [address] [place] [address] * PROTIME INR (PT) (01/24/2018 12:54 AM) Component Value Ref Range INR 1.2 0.8 - 1.2 Specimen Performing Laboratory Blood MAIN LAB [address] [place] [address] * CBC AND DIFF (01/24/2018 12:54 AM) [...] Blood [facility] MAIN LAB [address] [place] [address] * CT MISC EXTERNAL IMAGING (01/23/2018 6:50 [...] by RT, will be per RT policy. Lhcp=418so/ml acetylcysteine (MUCOMYST) 200 mg/mL (20 Given 02/06/2018 3 mL %) nebulizer solution 3 mL 12:09 CDT 3 mL, Inhalation, RT FOUR TIMES DAILY AND PRN, First dose on Jessie 02/06/18 at 1200, Until Discontinued, When administered by RT, will be per RT policy. Zvan=659fz/ml Given 02/06/2018 3 mL 16:52 CDT Given [...] 1 capsule 1 capsule, Feeding Tube, NEEDED (COMBINER OPERATOR FROM RX), Starting 01/25/18 at 0935, Until [...]
--- OUTSIDE RECORDS SUMMARY | 2018-03-17 15:33 | XMS REPORT | Encounter Summary ---
Author Author [facility] Organization [facility] Address Unknown Phone Unavailable Care Team Providers Care System Safety Engineer Name Role Phone No Pcp, Na PCP Unavailable Encounter Details Date Type Department Care Team Description 02/05/2018 Nurse Only [facility] Center - Radiation Nellie Zelaya RN Therapy [address] [place] [address] Social History Tobacco Use Types Packs/Day Years [...] dose, Wed 16:46 CDT 02/05/18 at 1700, [facility] Center Infusion in this encounter
--- OUTSIDE RECORDS SUMMARY | 2018-03-17 15:33 | XMS REPORT | Encounter Summary ---
Author Author [facility] Organization [facility] Address Unknown Phone Unavailable Care Team Providers Care 8Th Grade Teacher Name Role Phone No Pcp, Na PCP Unavailable Encounter Details Date Type Department Care Team Description 02/07/2018 [facility] Pasha Wood MD Therapy [address] [place] [address] [place] [address] [phone] Social History Tobacco Use Types Packs/Day Years [...] CDT Kelvin Zaldivar.received radiation therapy treatment today. [id number]. in this encounter Plan of Treatment Not on fileas of this encounter Visit Diagnoses Not on filein this encounter
--- OUTSIDE RECORDS SUMMARY | 2018-03-17 15:33 | XMS REPORT | Encounter Summary ---
Author Author [facility] Organization [facility] Address Unknown Phone Unavailable Care Team Providers Care Sales Manager Name Role Phone No Pcp, Na PCP Unavailable Encounter Details Date Type Department Care Team Description 02/10/2018 [facility] Radiation Pasha Wood MD Therapy [address] [place] [address] [place] [address] [phone] Social History Tobacco Use Types Packs/Day Years [...]
--- OUTSIDE RECORDS SUMMARY | 2018-03-17 15:33 | XMS REPORT | Encounter Summary ---
Author Author [facility] Organization [facility] Address Unknown Phone Unavailable Care Team Providers Care Strategic Debriefing Officer Name Role Phone No Pcp, Na PCP Unavailable Encounter Details Date Type Department Care Team Description 02/01/2018 [facility] Radiation Pasha Wood MD Therapy [address] [place] [address] [place] [address] [phone] Social History Tobacco Use Types Packs/Day Years [...] Simon - 02/01/2018 3:55 PM CDT Kelvin Zladivar.received radiation therapy treatment today. 1 of 3 treatments. in this encounter Plan of Treatment Not on fileas of this encounter Visit Diagnoses Not on filein this encounter
--- OUTSIDE RECORDS SUMMARY | 2018-03-17 15:33 | XMS REPORT | Encounter Summary ---
Author Author [facility] Organization [facility] Address Unknown Phone Unavailable Care Team Providers Care Director Of Entertainment Name Role Phone No Pcp, Na PCP Unavailable Encounter Details Date Type Department Care Team Description 02/06/2018 [facility] Radiation Pasha Wood MD Therapy [address] [place] [address] [place] [address] [phone] Social History Tobacco Use Types Packs/Day Years [...]
--- OUTSIDE RECORDS SUMMARY | 2018-03-17 15:33 | XMS REPORT | Encounter Summary ---
Author Author [facility] Organization [facility] Address Unknown Phone Unavailable Care Team Providers Care Order Management Specialist Name Role Phone No Pcp, Na PCP Unavailable Encounter Details Date Type Department Care Team Description 02/02/2018 [facility] Radiation Pasha Wood MD Therapy [address] [place] [address] [place] [address] [phone] Social History Tobacco Use Types Packs/Day Years [...]
--- OUTSIDE RECORDS SUMMARY | 2018-03-17 15:33 | XMS REPORT | Encounter Summary ---
Author Author [facility] Organization [facility] Address Unknown Phone Unavailable Care Team Providers Care Anesthesiologists' Assistant Name Role Phone No Pcp, Na PCP Unavailable Encounter Details Date Type Department Care Team Description 02/13/2018 [facility] Radiation Pasha Wood MD Therapy [address] [place] [address] [place] [address] [phone] Social History Tobacco Use Types Packs/Day Years [...]
--- OUTSIDE RECORDS SUMMARY | 2018-03-17 15:33 | XMS REPORT | Encounter Summary ---
Author Author [facility] Organization [facility] Address Unknown Phone Unavailable Care Team Providers Care Ancillary Specialist Name Role Phone No Pcp, Na PCP Unavailable Encounter Details Date Type Department Care Team Description 02/10/2018 Orders Only Cancer [facility] - Radiation Interface, [facility] Treatment Therapy Data [address] [place] [address] Social History Tobacco Use Types Packs/Day Years [...] Point ID Neck_Mediastinum Dosage Given To Date 24.59470641 Session Dosage Given [phone] Plan ID Neck_Med_I # Plan Name Generated [...] Point ID Neck_Mediastinum Dosage Given To Date 22.4636261 Session Dosage Given 2.89783179 Plan ID Neck_Med_I # Plan Name Generated [...] Point ID Neck_Mediastinum Dosage Given To Date 20.86608642 Session Dosage Given 2.18705877 Plan ID Neck_Med_I # Plan Name Generated [...] Point ID Neck_Mediastinum Dosage Given To Date 18.05928034 Session Dosage Given 2.09193898 Plan ID Neck_Med_I # Plan Name Generated [...] Point ID Neck_Mediastinum Dosage Given To Date 16.03782361 Session Dosage Given 2.51590326 Plan ID Neck_Med_I # Plan Name Generated from plan 'Neck_Med_IMRT' Fractions Treated to Date 2 Total Fractions on Plan 26 Prescribed Dose per 2 Fraction Prescription Dose 5,200 Specimen Performing Laboratory [facility] RAD ONC TREATMENT in this encounter Visit Diagnoses Not on filein this encounter
--- OUTSIDE RECORDS SUMMARY | 2018-03-17 15:33 | XMS REPORT | Encounter Summary ---
Author Author [facility] Organization [facility] Address Unknown Phone Unavailable Care Team Providers Care Supervisor Public Message Service Name Role Phone No Pcp, Na PCP Unavailable Encounter Details Date Type Department Care Team Description 02/12/2018 [facility] Radiation Pasha Wood MD Therapy [address] [place] [address] [place] [address] [phone] Social History Tobacco Use Types Packs/Day Years [...]
--- OUTSIDE RECORDS SUMMARY | 2018-03-17 15:33 | XMS REPORT | Encounter Summary ---
Author Author [facility] Organization [facility] Address Unknown Phone Unavailable Care Team Providers Care Material Handler Name Role Phone No Pcp, Na PCP Unavailable Encounter Details Date Type Department Care Team Description 02/11/2018 Hosp Case Management - Social BrigetteBluee Documentation Work Only [address] [place] [address] Social History Tobacco Use Types Packs/Day Years [...] home which most likely is in a [facility] clinic. SHAHZAD discussed with Dr. Israel [...]
--- OUTSIDE RECORDS SUMMARY | 2018-03-17 15:33 | XMS REPORT | Encounter Summary ---
Author Author [facility] Organization [facility] Address Unknown Phone Unavailable Care Team Providers Care Bill Of Lading Clerk Name Role Phone No Pcp, Na PCP Unavailable Encounter Details Date Type Department Care Team Description 01/31/2018 [facility] - Radiation Pasha Wood MD Therapy [address] [place] [address] [place] [address] [phone] Social History Tobacco Use Types Packs/Day Years [...]
--- OUTSIDE RECORDS SUMMARY | 2018-03-17 15:33 | XMS REPORT | Encounter Summary ---
Author Author [facility] Organization [facility] Address Unknown Phone Unavailable Care Team Providers Care Corn Crop Supervisor Name Role Phone No Pcp, Na PCP Unavailable Encounter Details Date Type Department Care Team Description 02/06/2018 [facility] Radiation Pasha Wood MD Therapy [address] [place] [address] [place] [address] [phone] Social History Tobacco Use Types Packs/Day Years [...] 02/01/2018 02/02/2018 02/03/2018 02/06/2018 02/07/2018 Course ID [id number] [id number] [id number] [id number] C1 -Neck-Mediasti Plan ID Neck-Mediasti Neck-Mediast1 Neck-Mediast1 [...] to Date (Gy) 3 6 9 12 [id number] Subjective: He could not lie down for [...]
--- OUTSIDE RECORDS SUMMARY | 2018-03-17 15:33 | XMS REPORT | Encounter Summary ---
Author Author [facility] Organization [facility] Address Unknown Phone Unavailable Care Team Providers Care Ferris Wheel Attendant Name Role Phone No Pcp, Na PCP Unavailable Encounter Details Date Type Department Care Team Description 02/12/2018 Pharmacy Visit [facility] [address] [place] [address] Social History Tobacco Use Types Packs/Day Years [...]
--- OUTSIDE RECORDS SUMMARY | 2018-03-17 15:33 | XMS REPORT | Encounter Summary ---
Author Author [facility] Organization [facility] Address Unknown Phone Unavailable Care Team Providers Care Channel Program Manager Name Role Phone No Pcp, Na PCP Unavailable Encounter Details Date Type Department Care Team Description 02/11/2018 [facility] - Radiation Pasha Wood MD Therapy [address] [place] [address] [place] [address] [phone] Social History Tobacco Use Types Packs/Day Years [...]
--- OUTSIDE RECORDS SUMMARY | 2018-03-17 15:33 | XMS REPORT | Encounter Summary ---
Author Author [facility] Organization [facility] Address Unknown Phone Unavailable Care Team Providers Care Forgeman Helper Name Role Phone No Pcp, Na PCP Unavailable Encounter Details Date Type Department Care Team Description 02/03/2018 [facility] Radiation Pasha Wood MD Therapy [address] [place] [address] [place] [address] [phone] Social History Tobacco Use Types Packs/Day Years [...]
--- OUTSIDE RECORDS SUMMARY | 2018-03-17 15:34 | XMS REPORT | Encounter Summary ---
Author Author [facility] Organization [facility] Address Unknown Phone Unavailable Care Team Providers Care Nut And Bolt Assembler Name Role Phone No Pcp, Na PCP Unavailable Reason for Visit * Reason Comments Consult * Auth/Cert Status Reason Specialty Diagnoses / Referred By Referred To Procedures Contact Contact Diagnoses Neck mass Diagnosis unknown Neck/chest mass Neck mass Encounter Details Date Type Department Care Team Description 01/24/2018 Office Visit Cancer [facility] - Radiation Morales Lundberg MD Neck mass (Primary Dx) Therapy [address] [place] [address] [place] [address] [phone] Social History Tobacco Use Types Packs/Day Years [...]
--- OUTSIDE RECORDS SUMMARY | 2018-03-17 15:34 | XMS REPORT | Encounter Summary ---
Author Author [facility] Organization [facility] Address Unknown Phone Unavailable Care Team Providers Care Periodontal Assistant Name Role Phone No Pcp, Na PCP Unavailable Encounter Details Date Type Department Care Team Description 01/24/2018 Procedure Pass Main Operating Room [address] [place] [address] Social History Tobacco Use Types Packs/Day Years Used Date Never Assessed Sex Assigned at Date Recorded Not on file as of this encounter Plan of Treatment Not on fileas of this encounter Visit Diagnoses Not on filein this encounter
--- OUTSIDE RECORDS SUMMARY | 2018-03-17 15:34 | XMS REPORT | Encounter Summary ---
Author Author [facility] Organization [facility] Address Unknown Phone Unavailable Care Team Providers Care Oil Derrick Operator Name Role Phone No Pcp, Na PCP Unavailable Reason for Referral * Consult, Test & Treat Status Reason Specialty Diagnoses / Referred By Referred To Procedures Contact Contact Inpatient Specialty Radiation Therapy Diagnoses Pasha Wood MD [facility] Mediastinal mass [address] [place] [id number] Phone: Encounter Details Date Type Department Care Team Description 01/31/2018 Orders [facility] - Radiation Pasha Wood MD Mediastinal mass (Primary Therapy [address] Dx) [address] [place] [address] [place] [address] [phone] Social History Tobacco Use Types Packs/Day Years [...] Point ID Neck_Mediastinum Dosage Given To Date [id number] Session Dosage Given [id number] Plan ID Neck_Med_I # Plan Name Generated [...]
--- OUTSIDE RECORDS SUMMARY | 2018-03-17 15:34 | XMS REPORT | Encounter Summary ---
Author Author [facility] Organization [facility] Address Unknown Phone Unavailable Care Team Providers Care Topology Teacher Name Role Phone No Pcp, Na PCP Unavailable Reason for Visit * Auth/Cert Status Reason Specialty Diagnoses / Referred By Referred To Procedures Contact Contact Diagnoses Neck mass Diagnosis unknown Neck/chest mass Neck mass Encounter Details Date Type Department Care Team Description 01/24/2018 Anesthesia Main Operating Room Zaida Horan CRNA Event [address] [place] [address] [place] [address] [phone] Anesthesia Record Procedure Name Responsible Anesthesia Start [...] Stylet; LIANNA Cerda CRNA Single-Lumen, Cuffed; 5mm (PRODUCT SAF[employer]Y LEAD); Mac; 4; Oral; 1-Full view of the [...]
--- OUTSIDE RECORDS SUMMARY | 2018-03-17 15:34 | XMS REPORT | Encounter Summary ---
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
--- OUTSIDE RECORDS SUMMARY | 2018-03-17 15:37 | XMS REPORT | Encounter Summary ---
Author Author [facility] Organization [facility] Address Unknown Phone Unavailable Care Team Providers Care Front End Ui Developer Name Role Phone No Pcp, Na PCP Unavailable Reason for Visit * Auth/Cert Status Reason Specialty Diagnoses / Referred By Referred To Procedures Contact Contact Diagnoses Neck mass Diagnosis unknown Neck/chest mass Neck mass Encounter Details Date Type Department Care Team Description 01/24/2018 Surgery Main Operating Room Jorge Neff MD TRACHEOSTOMY [address] [place] [address] [place] [address] [place], [place] [id number] Social History Tobacco Use Types Packs/Day Years [...] am has been set up at [facility] ([place] [address], - [phone]) Acute Hypoxic Respiratory Failure: Thought to be [...] not pass through the area of compression. HOSPITAL ACCOUNT MANAGER following. Anxiety:Due to new diagnosis. Psych evaluated [...] (placed on 02/06 through IR) + TFs. HOSPITAL ACCOUNT MANAGER following. Had a video swallow on 02/10 [...] or concerns regarding your hospital stay. Call [phone] Discharging attending physician: OMI BANDA [[id number]] Regular Diet You have no dietary restriction. Please continue with a healthy balanced diet. [facility] Home care instructions: *WASH HANDS PRIOR TO HANDLING [...] BE PLACED IMMEDIATELY. [place] [address] Ph- [phone] Jacobo with Medical Oncology [...] [facility] ([facility] Radiation Oncology) [address] [facility] [address] Feb 18, 2018 8:30 AM CDT Treatment with [facility] ([facility] Radiation Oncology) [address] [facility] [address] Feb 19, 2018 8:30 AM CDT Treatment with [facility] ([facility] Radiation Oncology) [address] [facility] [address] Feb 20, 2018 8:30 AM CDT Treatment with Pasha Wood MD [facility] [place] - Radiation Therapy ([facility] Radiation Oncology) [address] [facility] [address] Feb 21, 2018 8:30 AM CDT Treatment with Pasha Wood MD [facility] - Radiation Therapy ([facility] Radiation Oncology) [address] [facility] [address] Feb 24, 2018 8:30 AM CDT Treatment with Pasha Wood MD [facility] - Radiation Therapy ([facility] Radiation Oncology) [address] [facility] [address] February 25, 2018 8:30 AM CDT Treatment with Pasha Wood MD [facility] - Radiation Therapy ([facility] Radiation Oncology) [address] [facility] [address] February 26, 2018 8:30 AM CDT Treatment with Pasha Wood MD [facility] - Radiation Therapy ([facility] Radiation Oncology) [address] [facility] [address] February 27, 2018 8:30 AM CDT Treatment with Pasha Wood MD [facility] - Radiation Therapy ([facility] Radiation Oncology) [address] [facility] [address] February 28, 2018 8:30 AM CDT Treatment with Pasha Wood MD [facility] - Radiation Therapy ([facility] Radiation Oncology) [address] [place], [place] [id number] Pending items needing follow up: None More [...] It is usually given by a health- neonatal intensive care unit nurse. You or a family member may be [...] the advice of your doctor or health neonatal intensive care unit nurse. Make sure you receive a puncture-resistant container to dispose of the needles and syringes once you have finished with them. Do not reuse these items. Return the container to your doctor or health neonatal intensive care unit nurse for proper disposal. Talk to your clothing cutter regarding the use of this medicine in children. Special care may be needed. What side effects may I notice from receiving this medicine? Side effects that you should report to your doctor or health neonatal intensive care unit nurse as soon as possible: allergic reactions like [...] attention (report to your doctor or health neonatal intensive care unit nurse if they continue or are bothersome): pain, [...] this medicine? Visit your doctor or health neonatal intensive care unit nurse for regular checks on your progress. Your condition will be monitored carefully while you are receiving this medicine. Notify your doctor or health neonatal intensive care unit nurse and seek emergency treatment if you develop breathing problems; changes in vision; chest pain; severe, sudden headache; pain, swelling, warmth in the leg; trouble speaking; sudden numbness or weakness of the face, arm, or leg. These can be signs that your condition has gotten worse. If you are going to have surgery, tell your doctor or health neonatal intensive care unit nurse that you are taking this medicine. Do [...] the skin to your doctor or health neonatal intensive care unit nurse. NOTE:This sheet is a summary. It may [...] or concerns related to the procedure, call [phone] for Saturday-Saturday 7-5. After-hours and weekends, please call [phone] and ask for the Interventional Move Coordinator on-call. Interventional Radiology Gastrostomy Tube (G-tube)Placement-Discharge Instructions [...] WHEN TO CALL THE DOCTOR: (Please call [phone] for severe symptoms) You have bleeding from [...] for problems or concerns related to the procedure,[phone] for Saturday-Saturday 7-5. After-hours and weekends, please [phone] and ask for the Interventional Move Coordinator on-call. in this encounter Medications at Time [...] Pt left unit via wheelchair accompanied by CORRECTIONAL GUARD and family for d/c to home. Complete d/c teaching provided including medication administration, lovenox administration, gtube care, and follow up appt with written instructions given to patient. Patient verbalizes understanding of all teaching. Paper scripts given to patient prior to leaving unit. * Nayana Meeks MS,CCC-HOSPITAL ACCOUNT MANAGER - 02/14/2018 10:57 AM CDT SPEECH-LANGUAGE PATHOLOGY [...] with other means of communication (e.g. Writing) HOSPITAL ACCOUNT MANAGER will follow to ensure diet tolerance. May benefit from HOSPITAL ACCOUNT MANAGER upon dc in the future for speaking valve Therapist: Nayana Meeks MS,[facility] ACCOUNT MANAGER [id number] Date: 02/14/2018 * Omi Banda MD - [...] not pass through the area of compression. HOSPITAL ACCOUNT MANAGER following. Anxiety: Due to new diagnosis. Psych [...] (placed on 02/06 through IR) + TFs. HOSPITAL ACCOUNT MANAGER following. Had a video swallow on 02/10 [...] am has been set up at [facility] [place] [address], - ) - Rad Onc to transfer [...] 50% of the time was spent in djqw-ug-csym contact with the patient at bedside. Omi Banda MD Medical Oncology Hospitalist [phone] Subjective Patient is doing ok today. No [...] 20,000 Units/ sodium bicarbonate 650 mg(#) PRN (Dielectric Machine Operator from Rx), prochlorperazine Q6H PRN, simethicone Q6H [...] Pertinent radiology reviewed. Omi Banda MD Pager [phone] * Luis Hyde MD - 02/14/2018 8:54 AM CDT Formatting of this note may be different from the original. End of Treatment Summary Note Date: 02/14/2018 Kelvin Zaldivar is a 42 y.o. male. Treatment Data Summary: Site Treatment Technique Treatment dates Dose/ Fraction (cGy) Total prescribed Dose (cGy) Total # of fractions # missed days Rt neck and mediastinum 3D-CHAIRMAN EMERITUS 02/01/2018 - 02/06/2018 300 1200 4 1 Rt neck and mediastinum IMRT 02/07/2018 - 02/14/2018 200 1200 6 0 Mr. Zaldivar is a 42 y.o.malewith a PMH of tobaccoism with ~30 pack year hx. He presented after transfer from [facility] after evaluation for dysphagia &voice hoarseness [...] of 3 Gy (12 Gy total) using 3D-CHAIRMAN EMERITUS. Concurrent chemotherapy was then initiated with cisplatin/ [...] a follow up with radiation oncology in [place], [place]. Luis Hyde MD PGY-3 Radiation Oncology [...] not pass through the area of compression. HOSPITAL ACCOUNT MANAGER following. Anxiety: Due to new diagnosis. Psych [...] (placed on 02/06 through IR) + TFs. HOSPITAL ACCOUNT MANAGER following. Had a video swallow on 02/10 [...] am has been set up at [facility] [place] [address], Ph- [phone]) - Rad Onc to work on transferring [...] 50% of the time was spent in wgng-zp-jefi contact with the patient at bedside. Omi Banda MD Medical Oncology Hospitalist 5202 Subjective Patient is doing ok today. No [...] 20,000 Units/ sodium bicarbonate 650 mg(#) PRN (Dielectric Machine Operator from Rx), prochlorperazine Q6H PRN, simethicone Q6H [...] Pertinent radiology reviewed. Omi Banda MD Pager [phone] * Jim Hill, JOSE G - 02/13/2018 [...] RT. RT to bedside. Patient suctioned by charge rnJim ARAIZA with relief. Stat CBC ordered per [...] Webb DPT Date: 02/13/2018 * Nayana Meeks, MS,[facility] ACCOUNT MANAGER - 02/13/2018 9:24 AM CDT SPEECH-LANGUAGE PATHOLOGY [...] other asking regarding use of speaking valve. HOSPITAL ACCOUNT MANAGER had previously signed off as pt not [...] Encouraged pt to contact physician for repeat HOSPITAL ACCOUNT MANAGER orders if he is dave to redirect airflow/initiate voicing. Discussed with member of primary team. Will recommend upgrade diet as tolerated to regular/thin. Will recommend home health/outpatient HOSPITAL ACCOUNT MANAGER in the future as indicated for speaking valve. HOSPITAL ACCOUNT MANAGER will follow up prior to dc to ensure diet tolerance. Do not anticipate ongoing HOSPITAL ACCOUNT MANAGER needs in near future for dysphagia. Reviewed s/s aspiration for pt/family to monitor in home environment. RECOMMENDATIONS: Regular diet with thin liquids. PEG to supplement nutrition/hydration PO meds as tolerated Swallow Precautions: 100% supervision, small bites/sips, alternate bites/sips Frequent oral care to reduce risk of aspirating bacteria in oral secretions Assist pt with other means of communication (e.g. Writing) HOSPITAL ACCOUNT MANAGER will follow to ensure diet tolerance. May benefit from HOSPITAL ACCOUNT MANAGER upon dc in the future for speaking [...] therapy post acute hospitalization. Therapist: Nayana Meeks MS,[facility]-HOSPITAL ACCOUNT MANAGER [id number] Date: 02/13/2018 * Carrol Rogers, RT - [...] Date: 02/13/2018 Torres AC=Airway clearance AM=Aerosolized medication BA=[place] aerosol DB&C=Deep breathe & cough FEV1=Forced expiratory volume in first second) IC=Inspiratory capacity LE=Lung expansion MDI=Metered dose inhaler Neb=Nebulizer O2=Oxygen Oxim=Oximetry PEFR=Peak expiratory flow rate SOLAR SALES ASSESSOR=Rapid Response Team * James Leahy, PT - 02/12/2018 3:02 PM CDT PHYSICAL THERAPY NOTE PT to patient room and patient agreeable to walk. Upon sitting edge of bed patient became nauseous with dry heaving. RN summoned for anti-emesis medication and given. This therapist returned thirty minutes later and patient declined ambulation on the account of continued nausea. Patient agreeable to ambulate with staff psychiatrist later when feeling better. PT will follow [...] not pass through the area of compression. HOSPITAL ACCOUNT MANAGER following. Anxiety: Due to new diagnosis. Psych [...] (placed on 02/06 through IR) + TFs. HOSPITAL ACCOUNT MANAGER following. Had a video swallow on 02/10 [...] set up at [facility] ([address] [address], Ph- ) - Rad Onc SW to work on [...] 50% of the time was spent in gsgj-ec-jpha contact with the patient at bedside. Omi Banda MD Medical Oncology Hospitalist [id number] Subjective Patient is doing ok today. No [...] 20,000 Units/ sodium bicarbonate 650 mg(#) PRN (Dielectric Machine Operator from Rx), prochlorperazine Q6H PRN, simethicone Q6H [...] Pertinent radiology reviewed. 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 [address] - [phone] Nino Subjective Kelvin [...] 20,000 Units/ sodium bicarbonate 650 mg(#) PRN (Dielectric Machine Operator from Rx), prochlorperazine Q6H PRN, simethicone Q6H [...] Review: Pertinent radiology reviewed. Winsome Guido, PATRICK [phone] * Felisa Alvarenga, ELOISE - 02/11/2018 2:30 PM CDT Formatting of this note may be different from the original. OCCUPATIONAL THERAPY ASSESSMENT NOTE Patient Name: Kelvin Zaldivar Room/Bed: [place] [address] Admitting Diagnosis: Neck/chest mass Neck mass Past [...] family will determine if they stay at [facility] or elsewhere. 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 Cleans dentures, washes face and hands. HOSPITAL ACCOUNT MANAGER arrives for eval. Activity Tolerance Sitting Balance: [...] DC with SO to home or [facility] after training) Equipment Recommendations: (bath chair or sink bath method initially) Recommend ongoing assistance for: In and out of house, Transfers, Bed mobility, Ambulation, Stairs Therapist: Felisa Luo, OTR [id number] Date: 02/11/2018 * Luna Mcclellan DO - [...] and concentration: appropriate Cognition: alert Language: fluent, Macedonian speaker Fund of knowledge/vocabulary: average Gait: unable [...] between 8am and 3pm on weekends at [phone]. Otherwise, page the educational institution president cobol application developer. DO Tj Harris Scott, PT - 02/11/2018 [...] not pass through the area of compression. HOSPITAL ACCOUNT MANAGER following. Anxiety: Due to new diagnosis. Psych [...] (placed on 02/06 through IR) + TFs. HOSPITAL ACCOUNT MANAGER following. Had a video swallow on 02/10 [...] script for choi check. - Evaluated bu HOSPITAL ACCOUNT MANAGER, will advance to mechanical soft diet. - [...] 50% of the time was spent in gcae-tb-yizb contact with the patient at bedside. Omi Banda MD Medical Oncology Hospitalist [phone] Subjective Patient is doing ok today. No [...] 20,000 Units/ sodium bicarbonate 650 mg(#) PRN (Dielectric Machine Operator from Rx), prochlorperazine Q6H PRN, simethicone Q6H [...] Pertinent radiology reviewed. Omi Banda MD Pager [phone] * Yane Dubois RN - 02/11/2018 4:51 [...] Date: 02/10/2018 Torres AC=Airway clearance AM=Aerosolized medication BA=[place] aerosol DB&C=Deep breathe & cough FEV1=Forced expiratory volume in first second) IC=Inspiratory capacity LE=Lung expansion MDI=Metered dose inhaler Neb=Nebulizer O2=Oxygen Oxim=Oximetry PEFR=Peak expiratory flow rate SOLAR SALES ASSESSOR=Rapid Response Team * Lavinia Baker OT - [...] > Still awaiting send out path from [place] (immunostain for NUT). ID #Possible pneumonia - [...] Transitioned to Med/Surg status on 02/09. Per cnc machine programmer , patient does not have options for home health and thus will need to be able to complete care for tracheostomy and PEG tube on his own/with assistance of significant other on discharge. Code Status:Full Code Patient was seen and discussed with Dr. Melara. Antonio Stover DO MS Internal Medicine, PGY-1 Pager [phone] ATTESTATION I personally performed the torres portions [...] 000 Units/ sodium bicarbonate 650 mg(#) PRN (Dielectric Machine Operator from Rx), prochlorperazine Q6H PRN, simethicone Q6H [...] new radiology to review. * Nayana Meeks MS,CCC-HOSPITAL ACCOUNT MANAGER - 02/10/2018 1:22 PM CDT SPEECH-LANGUAGE PATHOLOGY VIDEOSWALLOW ASSESSMENT EVALUATION SUMMARY Videoswallow Summary*: A videoswallow summary was completed at this date. Pt known to this HOSPITAL ACCOUNT MANAGER from onset of this hospital admission. Pt [...] in oral secretions Ongoing dysphagia management from HOSPITAL ACCOUNT MANAGER. Ongoing HOSPITAL ACCOUNT MANAGER at next level of care. MBSImp Scale: [...] Acute Hospitalization. Prognosis*: Good NOMS Dysphagia Rating*: 9-Itoe-Zsozhcvm Dysphagia -Swallow safe but usually requires mod [...] transferred to the ICU on 02/06/18 following SOLAR SALES ASSESSOR for progressive hypoxemia and rising O2 requirements [...] from respiratory status changes. Therapist: Nayana Meeks MS,[facility] ACCOUNT MANAGER [id number] Date: 02/10/2018 * Wilton Isidro RN - 02/10/2018 1:13 PM CDT 7490 Assumed pt care at this time. Bedside [...] cleared for PO, goal diet: Regular/textures per HOSPITAL ACCOUNT MANAGER, however would continue with goal for 100% [...] Status: Not met;Ongoing Karen Salcedo, SHAN, LD, 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 ID #Possible pneumonia - [...] Transition to Med/Surg status on 02/09. Per cnc machine programmer, patient does not have options for home [...] 000 Units/ sodium bicarbonate 650 mg(#) PRN (Dielectric Machine Operator from Rx), prochlorperazine Q6H PRN, simethicone Q6H [...] radiology to review. Homa Owen MD Pager [phone] * Andrew Sanchez, RN - 02/09/2018 7:50 [...] videoswallow evaluation 02/10. Therapist: Yelitza Garber M.A. CF-HOSPITAL ACCOUNT MANAGER Voalte: [id number] Pager: [phone] Weekend Acute Pager: [phone] Date: 02/08/2018 * Hilda Dong, RN - [...] > Still awaiting send out path from [place] (immunostain for NUT). ID #Leukocytosis #Possible pneumonia [...] transition to Med/Surg status on 02/09. Per cnc machine programmer, patient does not have options for home [...] 20,000 Units/ sodium bicarbonate 650 mg(#) PRN (Dielectric Machine Operator from Rx), simethicone Q6H PRN Vital Signs: [...] radiology to review. 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 Winsome Guido, PATIENT SUPPORT PARTNER [phone] Associated attestation - Caesar Yeboah MD - 02/07/2018 4:38 PM CDT I have reviewed subjective and objective findings with the nurse practitioner and I have personally interviewed and examined the patient. The WAD PRINTING MACHINE OPERATOR's assessment and plan correspond to my own medical decision making. 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 Relatively low burden metastatic disease. Disc/Rec: Reviewed diagnostic findings and treatment plan with patient's sister. We are now at Day 5 of cycle 1 of Carbo/ROOM MAID-16. XRT is ongoing. The chemotherapy was tolerated [...] between 8am and 3pm on weekends at [phone]. Otherwise, page the educational institution president cobol application developer. Subjective: Kelvin Zaldivar was seen today with [...] 20,000 Units/ sodium bicarbonate 650 mg(#) PRN (Dielectric Machine Operator from Rx), polyethylene glycol 3350 BID PRN [...] normal Attention span and concentration: fair Language: Macedonian, fluent Fund of knowledge and vocabulary: appropriate [...] development of the plan of care. Per [facility]ITE ativan 0.5-1mg po TID prn anxiety with additional 1mg prn prior to radiation therapy. Monitor respiratory status with concurrent benzo use. Please feel free to contact us with any additional questions or concerns by paging the consult team between 8am and 5pm on weekdays and between 8am and 3pm on weekends [phone]. Otherwise, page the educational institution president cobol application developer. Staff name: Karen Craven DO Date: 02/07/2018 * Nayana Meeks MS,CCC-HOSPITAL ACCOUNT MANAGER - 02/07/2018 9:28 AM CDT SPEECH-LANGUAGE PATHOLOGY [...] prior to diet initiation. No further acute HOSPITAL ACCOUNT MANAGER needs at this time. HOSPITAL ACCOUNT MANAGER will sign off. RECOMMENDATIONS Assist pt with other means of communication (e.g. Writing, mouthing words) When medically appropriate, will benefit from videoswallow study to assess swallow. Therapist: Nayana Meeks MS,[facility] ACCOUNT MANAGER [id number] Date: 02/07/2018 * Pablo Martinez, RN - [...] transition to Med/Surg status on 02/08. Per cnc machine programmer, patient does not have options for home [...] vomiting, diarrhea, chest pain, headache. Sister from [place] is at bedside and requests to speak with Oncology team. Luzma Onc WAD PRINTING MACHINE OPERATOR cobol application developer, notified and stated they would see patient [...] 20,000 Units/ sodium bicarbonate 650 mg(#) PRN (Dielectric Machine Operator from Rx), polyethylene glycol 3350 BID PRN [...] radiology to review. Homa Owen MD Pager [phone] Associated attestation - Gabrielle Bay MD - [...] of ICU level care. Gabrielle Bay MD [phone] * Homa Owen MD - 02/06/2018 5:34 [...] of ICU level care. Gabrielle Bay MD [phone] * Carl Terry, RN - 02/06/2018 4:55 [...] for 1600 appt. Left a message with JOES G [place] that patient was able to [...] Current Oral Intake: NPO Estimated Calorie Needs: 8563-3150 (28-32 kcal/kg admit wt of 79.1 kg) [...] 72 Hours Status: Not met;Ongoing Yelitza Cook Cable Maker *[id number] Associated attestation - Karen Salcedo, SHAN - 02/06/2018 1:39 PM CDT Agree with help desk internship's follow-up assessment/recommendations, however noted team's adjustment to EN order since help desk internship's visit - will page with recommendation to return to Is[employer]ource 1.5 goal rate 65ml/hr. Karen Salcedo RD, LD, 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 Systems Test Engineer visit with the patient, asked how was he feeling today. He nodded and thumbs up as (good). The spiritual care team is available as needed, 20/05, through the Shoulder Tap switchboard ([phone]). For immediate response, please page [phone]. For a response within 24 hours, please submit an order in O2 for a weather teacher consult or call the administrative voicemail at [phone]. Please page or use consult order if patinet requests visit. Systems Test Engineer will continue to follow. Date/Time: User: Pager: [phone] 02/06/2018 10:34 AM Desi Butt PCU 2 [...] Last Shower: 02/05/18 New Events or Follow-up: SOLAR SALES ASSESSOR called at 0313, pt transferred to ICU [...] He is transferred to the ICU following SOLAR SALES ASSESSOR for progressive hypoxemia and rising O2 requirements [...] He received lasix and steroids x1 during SOLAR SALES ASSESSOR; will hold on further/additional diuresis and systemic [...] coarse breath sounds and decreased air entry. SOLAR SALES ASSESSOR was called later due to sao2 in [...] with her documentation unless otherwise noted. 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 CT [...] changed to cuffless by ENT on 01/29. HOSPITAL ACCOUNT MANAGER following. Anxiety: -Due to new diagnosis. -Increase [...] placement as he will need to have fpc reliable enteral nutrition till chemo/RT can starting [...] 50% of the time was spent in yutu-se-hmgh contact with the patient at bedside. Subjective [...] 20,000 Units/ sodium bicarbonate 650 mg(#) PRN (Dielectric Machine Operator from Rx), polyethylene glycol 3350 BID PRN, potassium chloride SR PRN OR potassium chloride PRN, sodium phosphate IVPB PRN (Dielectric Machine Operator from Rx) AND Phosphorus DAILY AM AND* [...] Night NEWS Score: 2002- 3 2241- 4 5425- 5 Pain: 2010 Pt c/o right shoulder [...] dysphagia &voice hoarseness; evaluated by ENT in [place] who noted b/l paralyzed vocal cords. CT [...] changed to cuffless by ENT on 01/29. HOSPITAL ACCOUNT MANAGER following. Anxiety: -Due to new diagnosis. - [...] placement as he will need to have fpc reliable enteral nutrition till chemo/RT can starting [...] 50% of the time was spent in hzym-da-doye contact with the patient at bedside. Subjective [...] 20,000 Units/ sodium bicarbonate 650 mg(#) PRN (Dielectric Machine Operator from Rx), polyethylene glycol 3350 BID PRN, potassium chloride SR PRN OR potassium chloride PRN, sodium phosphate IVPB PRN (Dielectric Machine Operator from Rx) AND Phosphorus DAILY AM AND* [...] (Last 24 hours) Glucose: (!) 129 (02/04/18 9345) Radiology and other Diagnostics Review: Pertinent radiology [...] between 8am and 3pm on weekends at [phone]. Otherwise, page the educational institution president cobol application developer. Subjective: Kelvin Zaldivar was seen today with [...] 20,000 Units/ sodium bicarbonate 650 mg(#) PRN (Dielectric Machine Operator from Rx), polyethylene glycol 3350 BID PRN, potassium chloride SR PRN OR potassium chloride PRN 40 mEq at 01/26/18 1143, sodium phosphate IVPB PRN (Dielectric Machine Operator from Rx) AND Phosphorus DAILY AM AND [...] normal Attention span and concentration: fair Language: Macedonian, fluent Fund of knowledge and vocabulary: appropriate [...] and between 8am and 3pm on weekends [phone]. Otherwise, page the educational institution president cobol application developer. Staff name: Karen Craven, DO Date: 02/04/2018 [...] MRI Donald- negative for evidence of mass [facility] Radiology Review (per verbal report) [...] 20,000 Units/ sodium bicarbonate 650 mg(#) PRN (Dielectric Machine Operator from Rx), polyethylene glycol 3350 BID PRN, potassium chloride SR PRN OR potassium chloride PRN, sodium phosphate IVPB PRN (Dielectric Machine Operator from Rx) AND Phosphorus DAILY AM AND [...] Diagnostics Review: Pertinent radiology reviewed. Winsome Guido, PATIENT SUPPORT PARTNER [phone] * Yusuf Hernandez RN - 02/04/2018 7:14 [...] dysphagia &voice hoarseness; evaluated by ENT in [place] who noted b/l paralyzed vocal cords. CT [...] changed to cuffless by ENT on 01/29. HOSPITAL ACCOUNT MANAGER following. Anxiety: - Due to new diagnosis. [...] placement as he will need to have superintendent terminal reliable enteral nutrition till chemo/RT can starting [...] 50% of the time was spent in wlpb-sz-huzc contact with the patient at bedside. Subjective [...] 20,000 Units/ sodium bicarbonate 650 mg(#) PRN (Dielectric Machine Operator from Rx), polyethylene glycol 3350 BID PRN, potassium chloride SR PRN OR potassium chloride PRN, sodium phosphate IVPB PRN (Dielectric Machine Operator from Rx) AND Phosphorus DAILY AM AND [...] Current Oral Intake: NPO Estimated Calorie Needs: 4919-3333 (28-32 kcal/kg admit wt of 79.1 kg) [...] discussion of PEG placement is ongoing. Note HOSPITAL ACCOUNT MANAGER d/c'd speaking valve as pt not tolerating [...] Status: Partially met;Ongoing Jossy Vargas RD, LD [phone] * Stewart Webb, PT - 02/03/2018 3:54 [...] MRI Donald- negative for evidence of mass [facility] Radiology Review (per verbal report) [...] 20,000 Units/ sodium bicarbonate 650 mg(#) PRN (Dielectric Machine Operator from Rx), polyethylene glycol 3350 BID PRN, potassium chloride SR PRN OR potassium chloride PRN, sodium phosphate IVPB PRN (Dielectric Machine Operator from Rx) AND Phosphorus DAILY AM AND [...] Diagnostics Review: Pertinent radiology reviewed. Winsome Lata, PATIENT SUPPORT PARTNER [phone] Associated attestation - Caesar Yeboah MD - 02/03/2018 3:53 PM CDT I have reviewed subjective and objective findings with the nurse practitioner and I have personally interviewed and examined the patient. The WAD PRINTING MACHINE OPERATOR's assessment and plan correspond to my own medical decision making. 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 Day 1 of Cycle 1 of CDDP and ROOM MAID-16 today. Treatment plan reviewed with patient. Caesar [...] dysphagia &voice hoarseness; evaluated by ENT in [place] who noted b/l paralyzed vocal cords. CT [...] changed to cuffless by ENT on 01/29. HOSPITAL ACCOUNT MANAGER following. Anxiety: Due to new diagnosis. Controlled [...] 50% of the time was spent in pcny-ss-aruz contact with the patient at bedside. Omi Banda MD Medical Oncology Hospitalist [phone] Subjective Patient is very anxious this morning. [...] 20,000 Units/ sodium bicarbonate 650 mg(#) PRN (Dielectric Machine Operator from Rx), potassium chloride SR PRN OR potassium chloride PRN, sodium phosphate IVPB PRN (Dielectric Machine Operator from Rx) AND Phosphorus DAILY AM AND [...] Pertinent radiology reviewed. Omi Banda MD Pager [phone] * Tracie Wright RN - 02/02/2018 10:35 [...] Samreen Benton - 02/01/2018 11:48 PM CDT Systems Test Engineer Dielectric Machine Operator visited patient and provided reading material. The spiritual care team is available as needed, 20/05, through the Shoulder Tap switchboard ([phone]). For immediate response, please page [phone]. For a response within 24 hours, please submit an order in O2 for a weather teacher consult or call the administrative voicemail at [phone]. * Karen Snow RN - 02/01/2018 8:44 [...] Date: 02/01/2018 Torres AC=Airway clearance AM=Aerosolized medication BA=[place] aerosol DB&C=Deep breathe & cough FEV1=Forced expiratory volume in first second) IC=Inspiratory capacity LE=Lung expansion MDI=Metered dose inhaler Neb=Nebulizer O2=Oxygen Oxim=Oximetry PEFR=Peak expiratory flow rate SOLAR SALES ASSESSOR=Rapid Response Team * Latisha Solano, PATIENT SUPPORT PARTNER - 02/01/2018 7:05 AM CDT Formatting of [...] & voice hoarseness; evaluated by ENT in [place] who noted b/l paralyzed vocal cords. CT [...] dysphagia & voice hoarseness that started 3w STEEL PLATE CAULKER; seen in clinics & ERs; treated w/ steroids/amoxicillin w/o improvement - seen by ENT in [place] & underwent laryngoscopy - b/l vocal chord [...] - consistent with poorly differentiated carcinoma - HOSPITAL ACCOUNT MANAGER following - TS 28% - onc & [...] and discussed with Dr Goldberg. Latisha Solano, PATIENT SUPPORT PARTNER Pager [phone] M2 pager [phone] Subjective: Kelvin Zaldivar is a 42 y.o. 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 [...] 20 Standardized (T-scale) Score: 43.99 Basic Mobility [facility] 0-100%: 33.32 [facility] G Code Modifier for Basic Mobility: CJ [...] MRI Donald- negative for evidence of mass [facility] Radiology Review (per verbal report) [...] 20,000 Units/ sodium bicarbonate 650 mg(#) PRN (Dielectric Machine Operator from Rx), potassium chloride SR PRN OR potassium chloride PRN, sodium phosphate IVPB PRN (Dielectric Machine Operator from Rx) AND Phosphorus DAILY AM AND [...] Diagnostics Review: Pertinent radiology reviewed. Winsome Guido, PATIENT SUPPORT PARTNER [phone] Associated attestation - Lamont Nino DO - 01/31/2018 6:14 PM CDT Patient seen and examined. Medical record, including radiographic and laboratory studies, has been reviewed. The documentation of history, physical findings and plan outlined by the WAD PRINTING MACHINE OPERATOR represent my own medical decision making. Treatment plans outlined in detail for patient. I described a course of chemotherapy with cisplatin/etoposide, including potential side effects and toxicities. All questions answered to patient's satisfaction, and he agrees to proceed as outlined next week. We have signed informed consent, and will initiate treatment tentatively on 02/04. Lamont Nino DO, [facility] Medical Oncology Consult Service * Gabo Neumann [...] & voice hoarseness; evaluated by ENT in [place] who noted b/l paralyzed vocal cords. CT [...] dysphagia & voice hoarseness that started 3w STEEL PLATE CAULKER; seen in clinics & ERs; treated w/ steroids/amoxicillin w/o improvement - seen by ENT in [place] & underwent laryngoscopy - b/l vocal chord [...] - consistent with poorly differentiated carcinoma - HOSPITAL ACCOUNT MANAGER following - TS 28% Plan - onc [...] with Dr Neumann. Latisha Solano APRN Pager [phone] M2 pager [phone] Subjective: Kelvin Zaldivar is a 42 y.o. [...] 20,000 Units/ sodium bicarbonate 650 mg(#) PRN (Dielectric Machine Operator from Rx), potassium chloride SR PRN OR potassium chloride PRN, sodium phosphate IVPB PRN (Dielectric Machine Operator from Rx) AND Phosphorus DAILY AM AND [...] Gabo Neumann MD Date: 01/31/2018 * Tara Trejo, JOSE G - 01/31/2018 6:01 AM CDT 4033 Assumed pt care at this time. Bedside safety check performed, plan of care reviewed. 2000 Physical assessment complete, please see ICU flowsheet for details. Pt trached on trach shield, alert and oriented x4. VSS per trends. Will continue to monitor. 0400 VSS per trends, AM labs drawn and sent. * Dilma Butterie - 01/30/2018 11:01 AM CDT Systems Test Engineer Note: Admit Date: 01/24/2018 Reason for visit; Rounds. Buddhism; Voodoo. The patient couldn't speak loudly but tried to communicate with me by a whisper and nodding of his head. He was asked when do he think that he will be going home. He mouthed the words "hopefully today" and gave me a thumbs up. He was asked if he has good family support and he nodded yes and (smiled). The weather teacher didn't noticed any worries or concerns, the patient was sitting up in a chair and reading a book. The weather teacher addressed spiritual resources with the patient. The spiritual care team is available as needed, 20/05, through the Shoulder Tap switchboard ([phone]). For immediate response, please page [phone]. For a response within 24 hours, please submit an order in O2 for a weather teacher consult or call the administrative voicemail at [phone]. Please page or use consult order if patient requests visit. Date/Time: User: Pager: [phone] 01/30/2018 11:01 AM Desi Butt PCU 4 [...] will tolerate speaking valve in near future. HOSPITAL ACCOUNT MANAGER will discontinue speaking valve trials at this time, as not a candidate for speaking valve use. Pt functionally communicating wants/needs/ideas via written expression and mouthing words. Pt educated on etiology of intolerance of speaking valve, and AAC options, including writing, mouthing and use of smart phone voice to text applications. HOSPITAL ACCOUNT MANAGER will return to further discuss potential AAC [...] to further assess swallow when medically appropriate. HOSPITAL ACCOUNT MANAGER will be in contact with primary team. RECOMMENDATIONS Assist pt with other means of communication (e.g. Writing, mouthing words, phone apps) HOSPITAL ACCOUNT MANAGER will follow for ongoing AAC evaluation. Will be in contact with primary team regarding evaluation of swallow when medically appropriate. Likely will require a video swallow study prior to diet initiation. Will benefit from HOSPITAL ACCOUNT MANAGER at next level of care. Relevant Findings not previously included in HOSPITAL ACCOUNT MANAGER documentation: Laryngeal Endoscopic Examination (01/24/18): After obtaining [...] therapy post acute hospitalization. Therapist: Kira Cardona- HOSPITAL ACCOUNT MANAGER Student Date: 01/30/2018 Associated attestation - Nayana Meeks, ,CCC-HOSPITAL ACCOUNT MANAGER - 01/30/2018 10:21 AM CDT Attestation: I was present and involved in directing care of the patient throughout the speech therapy session. Nayana Constantino, MS, CCC-HOSPITAL ACCOUNT MANAGER [phone] * Susu Bee, PT - 01/30/2018 8:53 AM CDT PHYSICAL THERAPY PROGRESS NOTE SUBJECTIVE: Subjective Significant hospital events: Transferred from OSH 01/24/[address] revealing large mass compressing airway, aortic arch and pulmonary artery. Pathology is pending. S/P tracheostomy, remains high risk airway (discussed briefly with team 01/27/18). 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 CT [...] dysphagia & voice hoarseness that started 3w STEEL PLATE CAULKER; seen in clinics & ERs; treated w/ steroids/amoxicillin w/o improvement - seen by ENT in [place] & underwent laryngoscopy - b/l vocal chord [...] mass 01/24 - path in process - HOSPITAL ACCOUNT MANAGER following - TS 28% Plan - onc [...] with Dr Neumann. Latisha Solano, PATRICK Pager [phone] M2 pager [phone] Subjective: Kelvin Zaldivar is a 42 y.o. [...] 20,000 Units/ sodium bicarbonate 650 mg(#) PRN (Dielectric Machine Operator from Rx), potassium chloride SR PRN OR potassium chloride PRN, sodium phosphate IVPB PRN (Dielectric Machine Operator from Rx) AND Phosphorus DAILY AM AND [...] immunostain for NUT is being performed at [place] [employer] and be reported in an addendum Oncology [...] MRI Donald- negative for evidence of mass [facility] Radiology Review (per verbal report) [...] Likely systemic treatment to be composed of akhiok doublet therapy Patient seen and discussed with [...] 20,000 Units/ sodium bicarbonate 650 mg(#) PRN (Dielectric Machine Operator from Rx), potassium chloride SR PRN OR potassium chloride PRN, sodium phosphate IVPB PRN (Dielectric Machine Operator from Rx) AND Phosphorus DAILY AM AND [...] NUT BU IHC Reference Lab PERFORMED AT [facility] Results Ref Lab RESULTS WILL BW REPORTED IN AN ADDENDUM Specimen Mail SLIDES [id number] CBC AND DIFF Collection Time: 01/30/18 4:21 [...] Diagnostics Review: Pertinent radiology reviewed. Winsome Guido, PATIENT SUPPORT PARTNER [phone] Associated attestation - Lamont Nino DO - 01/30/2018 5:48 PM CDT Patient seen and examined. Medical record, including radiographic and laboratory studies, has been reviewed. The documentation of history, physical findings and plan outlined by the WAD PRINTING MACHINE OPERATOR represent my own medical decision making. Plans for approach to management of malignancy in progress. Hopeful of being able to initiate treatment soon. Lamont Nino [facility] Medical Oncology Consult Service * Tara [...] Current Oral Intake: NPO Estimated Calorie Needs: 8355-0573 (28-32 kcal/kg admit wt of 79.1 kg) [...] 72 Hours Status: Partially met;Ongoing Kira Isidro, Cable Maker, *[phone] Associated attestation - Karen Salcedo RD - 01/29/2018 2:56 PM CDT Agree with help desk internship's follow-up assesssment/reocmmendations as summarized. 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 Otolaryngology team will sign off at [...] 20,000 Units/ sodium bicarbonate 650 mg(#) PRN (Dielectric Machine Operator from Rx), potassium chloride SR PRN OR potassium chloride PRN, sodium phosphate IVPB PRN (Dielectric Machine Operator from Rx) AND Phosphorus DAILY AM AND [...] NUT BU IHC Reference Lab PERFORMED AT [facility] [employer] Results Ref Lab RESULTS WILL BW REPORTED IN AN ADDENDUM Specimen Mail SLIDES [id number] Point of Care Testing (Last 24 hours) Glucose: (!) 112 (01/29/18 0407) Radiology and other Diagnostics Review: No pertinent radiology. Ángel Concepcion MD Pager [phone] * Gabo Neumann MD - 01/29/2018 8:18 [...] & voice hoarseness; evaluated by ENT in [place] who noted b/l paralyzed vocal cords. CT [...] dysphagia & voice hoarseness that started 3w STEEL PLATE CAULKER; seen in clinics & ERs; treated w/ steroids/amoxicillin w/o improvement - seen by ENT in [place] & underwent laryngoscopy - b/l vocal chord [...] mass 01/24 - path in process - HOSPITAL ACCOUNT MANAGER following - TS 30% Plan - onc [...] floor. Vince Snider APRN Pulm/Critical Care Pager [phone] 01/29/2018 M2 team pager (2nd call/nights) [phone] __ Subjective: Kelvin Zaldivar is a 42 [...] 20,000 Units/ sodium bicarbonate 650 mg(#) PRN (Dielectric Machine Operator from Rx), potassium chloride SR PRN OR potassium chloride PRN, sodium phosphate IVPB PRN (Dielectric Machine Operator from Rx) AND Phosphorus DAILY AM AND [...] a 6.0 cuffless trach. * Nayana Meeks MS,CCC-HOSPITAL ACCOUNT MANAGER - 01/28/2018 3:00 PM CDT SPEECH-LANGUAGE PATHOLOGY [...] follow. RECOMMENDATIONS Speaking valve placement trials with HOSPITAL ACCOUNT MANAGER only Assist pt with other means of communication (e.g. Writing) HOSPITAL ACCOUNT MANAGER will follow for ongoing speaking valve/AAC evaluation. [...] therapy post acute hospitalization. 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 CT [...] dysphagia & voice hoarseness that started 3w STEEL PLATE CAULKER; seen in clinics & ERs; treated w/ steroids/amoxicillin w/o improvement - seen by ENT in [place] & underwent laryngoscopy - b/l vocal chord [...] mass 01/24 - path in process - HOSPITAL ACCOUNT MANAGER following - TS 30% Plan - onc [...] floor. Vince Snider APRN Pulm/Critical Care Pager [phone] 01/28/2018 M2 team pager (2nd call/nights) [phone] __ Subjective: Kelvin Zaldivar is a 42 [...] 20,000 Units/ sodium bicarbonate 650 mg(#) PRN (Dielectric Machine Operator from Rx), potassium chloride SR PRN OR potassium chloride PRN, sodium phosphate IVPB PRN (Dielectric Machine Operator from Rx) AND Phosphorus DAILY AM AND [...] Procedures Review: Reviewed Staff name: Vince Batresverocarlitos, PATIENT SUPPORT PARTNER Date: 01/28/2018 ATTESTATION ATTESTATION I personally performed [...] Lavinia Baker OTR/L 6000 * Nayana Meeks MS,CCC-HOSPITAL ACCOUNT MANAGER - 01/27/2018 1:16 PM CDT SPEECH-LANGUAGE PATHOLOGY [...] see below. RECOMMENDATIONS Speaking valve placement with HOSPITAL ACCOUNT MANAGER only Assist pt with other means of communication (e.g. Writing) HOSPITAL ACCOUNT MANAGER will follow for ongoing speaking valve/AAC evaluation [...] developed dysphagia & voice hoarseness 3 weeks STEEL PLATE CAULKER, was given amoxicillin & steroids w/o improvement. Then was seen by ENT in [place] who noted paralyzed vocal cords, CT neck showed large right sided mass & pt was sent to the ED in [place]. Underwent CT c/a/p w/ contrast showing infiltrating [...] with stable physiologic parameters. Therapist: Nayana Meeks MS,CCC-HOSPITAL ACCOUNT MANAGER [phone] Date: 01/27/2018 * Shen Shields, RT [...] Date: 01/27/2018 Torres AC=Airway clearance AM=Aerosolized medication BA=[place] aerosol DB&C=Deep breathe & cough FEV1=Forced expiratory volume in first second) IC=Inspiratory capacity LE=Lung expansion MDI=Metered dose inhaler Neb=Nebulizer O2=Oxygen Oxim=Oximetry PEFR=Peak expiratory flow rate SOLAR SALES ASSESSOR=Rapid Response Team * Susu Bee, PT - 01/27/2018 10:24 AM CDT PHYSICAL THERAPY ASSESSMENT SUBJECTIVE: Subjective Significant hospital events: Transferred from OSH 01/24/[address] revealing large mass compressing airway, aortic arch and pulmonary artery. S/P tracheostomy, remains high risk airway (discussed briefly with team 01/27/18). 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 Winsome Guido, PATIENT SUPPORT PARTNER [phone] Associated attestation - Lamont Nino DO - 01/27/2018 6:02 PM CDT Patient seen and examined. Medical record, including radiographic and laboratory studies, has been reviewed. The documentation of history, physical findings and plan outlined by the WAD PRINTING MACHINE OPERATOR represent my own medical decision making. Final pathology pending. Lamont Nino [facility] Medical Oncology Consult Service * Gabo [...] & voice hoarseness; evaluated by ENT in [place] who noted b/l paralyzed vocal cords. CT [...] dysphagia & voice hoarseness that started 3w STEEL PLATE CAULKER; seen in clinics & ERs; treated w/ steroids/amoxicillin w/o improvement - seen by ENT in [place] & underwent laryngoscopy - b/l vocal chord [...] & rad-onc following; awaiting path - consult HOSPITAL ACCOUNT MANAGER for speaking valve Post-Op Bleeding (resolved) - [...] MICU. Vince Snider APRN Pulm/Critical Care Pager [phone] 01/27/2018 M2 team pager (2nd call/nights) [phone] __ Subjective: Kelvin Zaldivar is a 42 [...] Units/ sodium bicarbonate 650 mg(#) PRN ( Dielectric Machine Operator from Rx), potassium chloride SR PRN OR potassium chloride PRN, sodium phosphate IVPB PRN (Dielectric Machine Operator from Rx) AND Phosphorus DAILY AM AND* [...] Date: 01/27/2018 Torres AC=Airway clearance AM=Aerosolized medication BA=[place] aerosol DB&C=Deep breathe & cough FEV1=Forced expiratory volume in first second) IC=Inspiratory capacity LE=Lung expansion MDI=Metered dose inhaler Neb=Nebulizer O2=Oxygen Oxim=Oximetry PEFR=Peak expiratory flow rate SOLAR SALES ASSESSOR=Rapid Response Team * Karen Snow, RN - [...] Units/ sodium bicarbonate 650 mg(#) PRN ( Dielectric Machine Operator from Rx), potassium chloride SR PRN OR potassium chloride PRN, sodium phosphate IVPB PRN (Dielectric Machine Operator from Rx) AND Phosphorus DAILY AM AND* [...] Range PH-ART-POC 7.47 (H) 7.35 - 7.45 GUH1-BII-PKK 29 (L) 35 - 45 MMHG PO2-ART-POC 62 (L) 80 - 100 MMHG Base Def-ART-POC 3.0 MMOL/L O2 Sat-ART-POC 93.0 (L) 95 - 99 % Ecqmkiclyuo-QRJ-PIO 20.6 (L) 21 - 28 MMOL/L BLOOD GASES, PERIPHERAL VENOUS Collection Time: 01/25/18 6:20 PM Result Value Ref Range pH-Venous 7.37 7.30 - 7.40 PCO2-Venous 41 36 - 50 MMHG PO2-Venous 58 (H) 33 - 48 MMHG Base Deficit-Venous 1.4 MMOL/L O2 Sat-Venous 87.3 (H) 55 - 71 % Qlxrlholypg-OZE-Hlf 23.0 MMOL/L MAGNESIUM Collection Time: 01/26/18 1:05 [...] and other Diagnostics Review: No pertinent radiology. Alhjai Ramos MD Pager [phone] * Yusef Tomlinson RN - 01/26/2018 7:17 [...] 500ml NS, 8.7% change, pt not responsive. WAD PRINTING MACHINE OPERATOR notified. 1200 - Noon assessment completed [...] & voice hoarseness; evaluated by ENT in [place] who noted b/l paralyzed vocal cords. 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 Vince Snider APRN Pulm/Critical Care Pager [phone] 01/26/2018 M2 team pager (2nd call/nights) [phone] __ Subjective: Kelvin Zaldivar is a 42 [...] Units/ sodium bicarbonate 650 mg(#) PRN ( Dielectric Machine Operator from Rx), potassium chloride SR PRN OR potassium chloride PRN, sodium phosphate IVPB PRN (Dielectric Machine Operator from Rx) AND Phosphorus DAILY AM AND* [...] Bello MD - 01/26/2018 1:05 AM CDT Director Of Event Marketing Called to see patient for bleeding from [...] called ENT and they will be here manager of quality. She applied the thrombin spray.. Will monitor. [...] neck mass Ebony Yang please page ENT cobol application developer with questions Subjective Kelvin Zaldivar is a [...] Units/ sodium bicarbonate 650 mg(# ) PRN (Dielectric Machine Operator from Rx), potassium chloride SR PRN OR potassium chloride PRN , sodium phosphate IVPB PRN (Dielectric Machine Operator from Rx) AND Phosphorus DAILY AM AND [...] Color,UA YELLOW Turbidity,UA 1+ (A) CLEAR-CLEAR Specific [facility]-Urine 1.029 1.003 - 1.035 pH,UA 5.0 5.0 [...] pertinent radiology. Carlos A Yang MD Pager [phone] * Yusef Tomlinson, JOSE G - 01/25/2018 [...] to the chair when pt experienced nausea. WAD PRINTING MACHINE OPERATOR at bedside, ordered Zofran. Med administered. [...] & voice hoarseness; evaluated by ENT in [place] who noted b/l paralyzed vocal cords. 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 Vince Snider APRN Pulm/Critical Care Pager [phone] 01/25/2018 M2 team pager (2nd call/nights) [phone] __ Subjective: Kelvin Zaldivar is a 42 [...] potassium chloride PRN, sodium phosphate IVPB PRN (Dielectric Machine Operator from Rx) AND Phosphorus DAILY AM AND [...] coaching patient through episodes of anxiety. Dr. Blelo updated and with VO angelicaay to administer [...] unknown Added automatically from request for surgery [id number] I spent 35 minutes (excluding time spent performing or supervising any procedures and independent of the time spent by the WAD PRINTING MACHINE OPERATOR) providing and personally directing critical care [...] mass. Continue ICU care monitoring. Miguel Melara [phone] * Carl Terry RN - 01/24/2018 5:10 [...] note may be different from the original. ELSYE/HNS PROGRESS NOTE Today's Date: 01/24/2018 Admission Date: [...] Date: 01/24/2018 Torres AC=Airway clearance AM=Aerosolized medication BA=[place] aerosol DB&C=Deep breathe & cough FEV1=Forced expiratory volume in first second) IC=Inspiratory capacity LE=Lung expansion MDI=Metered dose inhaler Neb=Nebulizer O2=Oxygen Oxim=Oximetry PEFR=Peak expiratory flow rate SOLAR SALES ASSESSOR=Rapid Response Team * Dennis Romero RN - [...] cultures > Received dose of solumedrol during SOLAR SALES ASSESSOR, monitor clinically and consider adding steroids to [...] DO Family Medicine PGY-1 MICU 3 pager [phone] __ Primary Care Physician: No Pcp, Na [...] Range PH-ART-POC 7.50 (H) 7.35 - 7.45 YJF6-LME-YMH 37 35 - 45 MMHG PO2-ART-POC 55 (L) 80 - 100 MMHG Base Ex-ART-POC 6.0 MMOL/L O2 Sat-ART-POC 91.0 (L) 95 - 99 % Wbutxrnaadv-HOO-KSJ 28.7 (H) 21 - 28 MMOL/L POC [...] 0220) POC Glucose (Download): (!) 105 (02/06/18 1856) Radiology and Other Diagnostic Procedures Review: Pertinent radiology reviewed. Jessica Olguin DO Pager [phone] Associated attestation - Lily Bello MD - [...] assessment. Lily Bello [phone] * Fanny Colindres, PATIENT SUPPORT PARTNER - 02/05/2018 7:16 AM CDT Formatting of [...] 20,000 Units/ sodium bicarbonate 650 mg(#) PRN (Dielectric Machine Operator from Rx), polyethylene glycol 3350 BID PRN, potassium chloride SR PRN OR potassium chloride PRN, sodium phosphate IVPB PRN (Dielectric Machine Operator from Rx) AND Phosphorus DAILY AM AND* [...] previous H&P performed on 02/04/18. Fanny Colindres, PATIENT SUPPORT PARTNER Pager [phone] * Maria Dolores Vallejo, MSN,PATIENT SUPPORT PARTNER - 02/03/2018 7:33 AM CDT Formatting of [...] 20,000 Units/ sodium bicarbonate 650 mg(#) PRN (Dielectric Machine Operator from Rx), polyethylene glycol 3350 BID PRN, potassium chloride SR PRN OR potassium chloride PRN, sodium phosphate IVPB PRN (Dielectric Machine Operator from Rx) AND Phosphorus DAILY AM AND [...] previous H&P performed on 02/02/18. 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 Then was seen by ENT in [place] who noted paralyzed vocal cords, CT neck showed large right sided mass & pt was sent to the ED in [place]. 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 I spent 60 minutes providing critical care services including: performing a physical examination serially reviewing laboratory, telemetry, hemodynamic, oximetry, and respiratory data reviewing radiographic images reviewing medications managing fluids/electrolytes, antibiotics, ICU prophylaxis, and oxygenation developing the overall plan of care Patient seen and discussed with Dr. Quinten Altman [facility] Pulmonary Critical Care Pager [phone] pager [phone] Primary Care Physician: No Pcp, Na HISTORY OF PRESENT ILLNESS: Kelvin Zaldivar is a 42 y.o. 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 Then was seen by ENT in [place] who noted paralyzed vocal cords, CT neck showed large right sided mass & pt was sent to the ED in [place]. Underwent CT c/a/p w/ contrast showing infiltrating [...] Neurologic: lethargic but easily arousable & interactive, PTARICIA Laboratory: Recent Labs 01/24/18 0054 NA 133* [...] Omid Hooper, ALTAGRACIA Internal Medicine Resident-PGY3 Pager- [phone] Admission History and Physical Examination Name: Kelvin Zaldivar Admission Date: 01/24/2018 Assessment/Plan: Active Problems: Neck mass Mr Zaldivar is a 42 year old male with no significant past medical history presenting with neck mass encasing aorta and airway, transferred on 01/24 from [facility]. 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 -Patient has seen ENT Dr. Yun for loss of voice of 3 weeks duration on January 23, laryngoscopy showed paralyzed vocal cord. -In the ED on January 23 at [facility], CT scan of the neck [...] have radiation to help shrink tumour Leucocytosis -XYX=75545 on 01/23 at OSH, here VWK=30034 -There are no signs of infection, no fever, this may be due to malignancy Plan: Will hold on giving antibiotics now but will do infectious work-up -Mild hyponatremia Sw=106 may be from dehydration patient is not [...] Pertinent radiology reviewed. Heidi Barker MD Pager [phone] Associated attestation - Michele Alejandra DO - [...] Status: Not met;Ongoing Jossy Vargas RD, LD [id number] *[phone] * Gabo Howard MD - 02/02/2018 12:18 PM CDT Associated Order(s): CONSULT ADULT PSYCHIATRY PHYSICIAN Formatting of this note may be different from the original. PSYCHIATRY CONSULT NOTE Room/Bed: [place] [address] Admission Date: 01/24/2018 LOS: 9 days Consult [...] between 8am and 3pm on weekends at [phone]. Otherwise, page the educational institution president cobol application developer. Chief Concern: Anxiety History of Present Illness: [...] other illicit substance use. Psychosocial/Substance History: Born: [place], [place] Raised by: parents, grandma Hx of Abuse: denies Family/Siblings: 2 sisters, close to 1 of them Level of Education: high school Occupational Status: employed Main source of Income: job Relationships: Has fiance over 5 years, 1 sixteen yo daughter Current Living Situation: with fiance and daughter in [place] Social History Social History Marital status: Single [...] 20,000 Units/ sodium bicarbonate 650 mg(#) PRN (Dielectric Machine Operator from Rx), polyethylene glycol 3350 BID PRN, potassium chloride SR PRN OR potassium chloride PRN, sodium phosphate IVPB PRN (Dielectric Machine Operator from Rx) AND Phosphorus DAILY AM AND [...] span and concentration: intact/sustained Cognition: intact Language: chinese Fund of knowledge and vocabulary: average Focused [...] and between 8am and 3pm on weekends [phone]. Otherwise, page the educational institution president cobol application developer. Staff name: Miguelito Ragsdale MD Date: 02/02/2018 * Jessica Zimmerman RD - 01/25/2018 2:27 PM CDT Associated Order(s): CONSULT DIETITIAN CLINICAL NUTRITION Clinical Nutrition Assessment Summary Nutrition Assessment of Patient: BMI Categories Adult: Acceptable: 18.5-24.9 Unintentional Weight Loss: 5% in 1 month (significant) Malnutrition Assessment: Malnutrition present Malnutrition Context: ICD-10 code E44: Acute illness/Moderate non-severe malnutrition Current Oral Intake: NPO Estimated Calorie Needs: 2122-5906 (28-32 kcal/kg admit wt of 79.1 kg) [...] Mcgovern MD Radiation Oncology Resident PGY4 Pager [phone] History of Present Illness: Kelvin Zaldivar is [...] breathing and presented to the hospital in [place], [place]. Imaging showed a large mediastinal mass [...] potassium chloride PRN, sodium phosphate IVPB PRN (Dielectric Machine Operator from Rx) AND [START ON 01/25/2018] Phosphorus [...] Color,UA YELLOW Turbidity,UA 1+ (A) CLEAR-CLEAR Specific [facility]-Urine 1.029 1.003 - 1.035 pH,UA 5.0 5.0 [...] Nicholson M.D. on 01/24/2018 7:[address] [facility] External Imaging shows the large mediastinal mass leading to obstructed airway. Christy Mcgovern MD Radiation Oncology Resident PGY4 Pager [phone] * Winsome Guido, PATIENT SUPPORT PARTNER - 01/24/2018 8:29 AM CDT Associated Order(s): [...] - MRI Donald- negative for evident mass [facility] Radiology Review (per verbal report) [...] 42 y.o. male admitted in transfer from [place], [place] with new finding of large neck [...] past medical history. 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 reports current tobacco use (1.5 packs/day [...] 2.0 MMOL/L Pertinent radiology reviewed. Winsome Guido, [facility] [phone] Associated attestation - Winsome Pan MD - [...] interviewed and examined this patient with oncology WAD PRINTING MACHINE OPERATOR and confirmed the history and physical [...] detailed in the consultation note by oncology WAD PRINTING MACHINE OPERATOR and I would refer you to it for additional details with which I concur. I saw and examined the patient and reviewed with oncology WAD PRINTING MACHINE OPERATOR. Please refer to the consult note [...] thymoma/thymic carcinoma, thyroid malignancy. - He is kyghhvirwo-ebz-ppvysd ill at this time, therefore we believe [...] been changed back to [employer]. S.O.will utilize [employer] to obtain tube feed formula. Interventions ? Support Support: Patient Education, Pt/Family Updates re:POC or DC Plan ? Info or Referral Information or Referral to Community Resources: Safety Net Resources and/or Follow-up Care (Primary SW and Rad Onc SW coordinating radiation treatments to be done in [place]) ? Discharge Planning Discharge Planning: (per Lamont [...] and Availability #1: Significant Other: Britany Penny ([phone]) Does the patient use Medicaid Transportation?: No ? Next Level of Care (Acute Psych discharges only) ? Discharge Disposition Durable Medical Equipment - Selection Complete Service Request Status Selected Specialties Address Phone Number Fax Number [facility] Selected DME Services [phone] [facility] [address] Destination No service has been selected for the patient. Home Care No service has been selected for the patient. Dialysis/Infusion No service has been selected for the patient. Fanny White RN, BSN, [facility] [phone] * Critical Results - Mame Willoughby RN - 02/13/2018 3:10 PM CDT Critical result or procedure called (document test and value, and read back): WBC 0.8 Time MD/WAD PRINTING MACHINE OPERATOR Notified: 1512 MD/WAD PRINTING MACHINE OPERATOR Name: Dr. Deedee BARNES/WAD PRINTING MACHINE OPERATOR Response/Orders Given: No new orders at [...] coordinating radiation treatments to be done in [place]) ? Discharge Planning Discharge Planning: (per Lamont with [facility] pt set up for trach supplies and tube feeding supplies) ? Medication Needs Medication Needs: Co-Pay Check ? Financial ? Legal ? Other Disposition ? Expected Discharge Date Expected Discharge Date: 02/14/18 ? Transportation Does the patient need discharge transport arranged?: No Transportation Name, Phone and Availability #1: Significant Other: Britany Penny ([phone]) Does the patient use Medicaid Transportation?: No ? Next Level of Care (Acute Psych discharges only) ? Discharge Disposition Durable Medical Equipment - Selection Complete Service Request Status Selected Specialties Address Phone Number Fax Number [facility] Selected DME Services [phone] [place] [address] Destination No service has been selected for the patient. Home Care No service has been selected for the patient. Dialysis/Infusion No service has been selected for the patient. Fanny White RN, BSN, [facility] [phone] * Case Mgmt DC Plan - Fanny [...] location, limited insurance coverage, and care needs. [facility], [facility], [facility], [facility], [facility], [facility], [facility], and [facility] have all declined. Primary SW investigating coverage for outpatient therapies. Bedside RN and SW have arranged for patient and s.o.to receive teaching at bedside on trach care. Pt will be returning to daily for radiation treatments and per attending physician, pt will f/u with Oncology. [facility] has accepted to provide tube feed supplies and trach care supplies. NCNoah verified with Lamont, from [facility], that portable suction will be delivered to bedside, and the remaining items will be delivered to the home. Tube feed formula is not covered by insurance. NCM spoke with [employer] , and they could provide 3 cases per month if s.o.is able to pick this up. [facility]. Covering NCM [...] and Availability #1: Significant Other: Britany Penny ([phone]) Does the patient use Medicaid Transportation?: No ? Next Level of Care (Acute Psych discharges only) ? Discharge Disposition Durable Medical Equipment - Selection Complete Service Request Status Selected Specialties Address Phone Number Fax Number [facility] Selected DME Services [phone] [facility] [address] Destination No service has been selected for the patient. Home Care No service has been selected for the patient. Dialysis/Infusion No service has been selected for the patient. Fanny White RN, BSN, [facility] [phone] * Case Mgmt DC Leora Conteh - 02/11/2018 11:31 AM CDT Request for Benefits Received request from [facility] Minna Lovelace to check outpatient PT benefits for patient. Outpatient PT Benefits: Subject to deductible, coinsurance and out of pocket max. Must be prescribed by a physician Deductible: $2500 Deductible Remaining: $0 Coinsurance: 20% OOP Max: $4500 OOP Max met: $2280.43 OOP Remaining: $2219.57 Once OOP Max is met the patient is covered at 100% Leora Fontana Mixed Crop Farmer For further assistance please contact [facility] Minna Lovelace *[phone] * Case Mgmt DC Minna Amezquita - [...] himself. Pt will have SO come to [facility] for trach teaching. Per bedside RN she [...] moved closer to his home. Pt stated [place] would be closest town. SW asked Pt if he would want to stay at [facility], pt declined. Pt's girlfriend will be at [facility] and Saturday for teaching. Will plan for discharge Saturday if pt and SO are comfortable with trach /peg maintainence. SW provided in-network list for outpt PT near his home and explained benefits. SHAHZAD spoke to Ivet Guido, she will arrange for pt to have oncology appointment in [place]. SHAHZAD spoke to Esthela Cantor/onc SHAHZAD. She [...] and Availability #1: Significant Other: Britany Hemalatha ([phone]) Does the patient use Medicaid Transportation?: No [...] voice mail from Britany gadiel 02/11. Called [phone] and unable to leave message as it [...] and Availability #1: Significant Other: Britany Penny ([phone]) Does the patient use Medicaid Transportation?: No [...] patient. Ryan Mcbride RN MSN ONC Nurse Neuro Urologist Pg [phone] * Case Mgmt DC Plan - [place] [...] consult. Awaiting sessions from today. SW tasked ELECTRIFIER OPERATOR to check benefits. Patient has limited options [...] and Availability #1: Significant Other: Britany Rameshsharonsuad ([phone]) Does the patient use Medicaid Transportation?: No ? Next Level of Care (Acute Psych discharges only) ? Discharge Disposition [place] Karimi LMSW [phone] (phone) [phone] (pager) * Case Mgmt DC Plan - Hilda Michael - 02/10/2018 2:33 PM CDT Formatting of this note may be different from the original. In-Network IPR and SNF Benefits Summary for Kelvin Zaldivar Requested by: ROBBY Yousif Benefit(s) checked: IPR and SNF Payor: COVENTRY / Plan: COVENTRY PPO / Product Type: PPO / ( ) Culinary Director: Crystal Lezama Reference Number: [id number] Pt's Plan Active: Yes Effective Date: 10/28/2017 Benefit Period: Calendar Year Prior Auth Required: Yes: (P: [phone]) SNF/IPR Benefits In-Network Copay $0 Deductible remaining $0 Coinsurance after deductible 80/20 Out of Pocket Max remaining $2216.57 SNF Days/IPR Days remaining 60 This health science writer provided ROBBY Yousif with a directory of IPRs and SNFs that are in-network with pt's primary payer. Hilda Michael Mixed Crop Farmer For additional assistance, please contact ROBBY Yousif *[phone] * Case Mgmt DC Plan - Tory [...] and Availability #1: Significant Other: Britany Rameshsharonsuad ([phone]) Does the patient use Medicaid Transportation?: No [...] patient. Ryan Mcbride RN MSN ONC Nurse Neuro Urologist Pg [phone] * Transfer - Homa Owen MD - [...] transferred to the ICU on 02/06/18 following SOLAR SALES ASSESSOR for progressive hypoxemia and rising O2 requirements [...] XRT on 02/10 AM. Consults: Speech, Onc, Transformer Assembler, Psych Follow-Up Items: De-escalate abx on 02/10 and complete 7 day course. Activity/Weight bearing status: As tolerated, PT & OT following. Nutrition: Tube feeds; video swallow on 02/10 per Speech Discharge Plan: Transition to Med/Surg status on 02/09. Per cnc machine programmer, patient does not have options for home [...] further notification. Homa Owen MD Team Pager [phone] * Case Mgmt DC Plan - Tory [...] Supplies, Home Infusion- Enteral-TPN, Home Health [facility] [phone] will need to be notified when patient [...] and Availability #1: Significant Other: Britany Penny ([phone]) Does the patient use Medicaid Transportation?: No [...] patient. Ryan Mcbride RN MSN ONC Nurse Neuro Urologist Pg [phone] * Case Mgmt DC Plan - Tory [...] next few days. She would inform the [place] branch of this. Contacted [facility] and spoke with Hollis. She relates that they are not in network with patient's insurance. Spoke to Joyce with [email or web address] [phone]. They doesn't do HH in that area. Spoke with Miracle with [facility] [phone]. They don't go to [facility]. Spoke with Leighann at [facility] [phone]. They don't cross into [place]. Spoke with Nitza at [facility] [phone]. She wasn't sure about the insurance but requested information be faxed to [phone] for assistant import manager to review. [facility] called back stating that they do not have staffing to meet patient's needs. Medication Needs ? Financial ? Legal ? Other Disposition ? Expected Discharge Date Expected Discharge Date: 02/10/18 ? Transportation Does the patient need discharge transport arranged?: No Transportation Name, Phone and Availability #1: Significant Other: Britany Penny ([phone]) Does the patient use Medicaid Transportation?: No [...] patient. Ryan Mcbride RN MSN ONC Nurse Neuro Urologist Pg [phone] * Response Teams - Shira Motley RN [...] on-going "cancer treatments" to be coordinated in [place] at [address]. [address] drive will be easier for them to manage on a superintendent terminal basis. Discussed the option of staying at [facility] and continue treatments at [facility]. states that she is unable to stay with the pt 24 / ([facility] requirement) and does not have any other [...] appropriate caregiver after discharge. -->Addendum 1340: [facility] ([phone]) will deliver portable suction to bedside Saturday morning/afternoon, agency would prefer to be present to receive education. Humidified air and formula will be delivered to home address vs Saturday, local [facility] branch will work out delivery details with . -->Addendum 5388: Enteral formula is not covered under pts insurance, [facility] will reach out to to discuss OOP costs of formula and coordinate delivery. ? Info or Referral -Confirmed that [facility] does service the [place], [place] area. Faxed referral for trach and enteral supplies to this provider. Awaiting to back from agency regarding delivery and insurance coverage. -[facility] p: : [id number] -[facility] p: ): does not take trach's -[facility] p: : not accepting trach patients -[facility] p; : checking insurance, if in-network agency will accept. Addendum 1356: agency is OON and cannot accept pt. ? Discharge Planning Discharge Planning: Durable Medical Equipment and Supplies, Home Infusion- Enteral-TPN, Home Health ? Medication Needs ? Financial ? Legal ? Other Disposition ? Expected Discharge Date Expected Discharge Date: 02/05/18 ? Transportation Does the patient need discharge transport arranged?: No Transportation Name, Phone and Availability #1: Significant Other: Britany Hemalatha ([phone]) Does the patient use Medicaid Transportation?: No [...] for the patient. Molly Jacobs RN Nurse Neuro Urologist Pager: [phone] * Procedures (Immed Post or Bedside) - [...] Noel MD * Patient Education - Jada lOson RN - 02/03/2018 5:57 PM CDT Medication [...] Post-Procedure Condition: stable Jerzy Wilkinson MD Pager [phone] * Transfer - Yeimi PATRICK Good - [...] & voice hoarseness; evaluated by ENT in [place] who noted b/l paralyzed vocal cords. CT [...] Discharge Plan: ongoing Latisha Solano APRN Pager [phone] M2 team pager (2nd call/nights) [phone] * Care Plan - Radha Torres RN [...] Other Patient lives in a private home ([place], [place]) with his spouse, Britany, and his daughter. There are 2 steps to enter the home and home is one level. 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 Disposition ? Expected Discharge Date Expected Discharge Date: 02/05/18 ? Transportation Does the patient need discharge transport arranged?: No Transportation Name, Phone and Availability #1: Significant Other: Britany Penny ([phone]) Does the patient use Medicaid Transportation?: No ? Next Level of Care (Acute Psych discharges only) ? Discharge Disposition [place], [facility] [phone] (phone) [phone] (pager) * Care Plan - Lashandaalexandra Konrad - 01/27/2018 11:19 AM CDT Problem: Tobacco Use Goal: Knowledge of tobacco-use cessation methods Outcome: Goal Ongoing [facility] CONSULTATION ASSESSMENT/RECOMMENDATIONS Patient was referred for [facility] consultation Tobacco Use Treatment Practical Counseling [...] after discharge. Post discharge support referral: Declined [facility] Tobacco Quitline due to inability to speak currently. Provided telephone contact information. [facility] Educational Material: Accepted History of Present Illness [...] can be of further assistance, please call [facility] [phone] * Anesthesia Post Op Day 1 - Lexy Charlton SRNA - 01/25/2018 12:46 PM CDT Formatting of this note may be different from the original. Anesthesia Follow-Up Evaluation: Post-Procedure Day One Name: Kelvin Zaldivar : 1975 Age: 42 y.o. Sex : male Procedure Date: 01/24/2018 Procedure: Procedure(s) with comments: TRACHEOSTOMY BRONCHOSCOPY Through tracheostomy - CPT 76766 Physical Assessment Height: 201.2 cm (79.2") Weight: [...] Units/ sodium bicarbonate 650 mg(# ) PRN (Dielectric Machine Operator from Rx), potassium chloride SR PRN OR potassium chloride PRN , sodium phosphate IVPB PRN (Dielectric Machine Operator from Rx) AND Phosphorus DAILY AM AND [...] Implants: None Complications: none Dispo: Stable to [facility] Mine Luna MD Pager [phone] ATTESTATION I was present for the entire [...] RN - 01/24/2018 12:28 PM CDT 1230: SOLAR SALES ASSESSOR follow up complete. Pt resting comfortably, no [...] of pt's visitors. Provided pt with this [facility]'s business card with contact information. Pt resting in bed. Able to answer all questions. - Pt lives in a private home with his S.O., Britany, and his daughter. There are 2 steps to enter the home and home is one level. 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 Pt is able to drive. Pt has no past medical history prior to this encounter and was on no medications. This is pt's first hospitalization. Pt's S.O. will drive him home on DC. - Pt does not have a PCP. Pt saw a Dr. Yun with ENT in [place], [place] prior to admission. - Pt does not own any DME. Has never had HH services. Has never stayed in a SNF / IPR /LTACH. No history of home infusions. - Pt has [employer] insurance through his employer. Pt reports he would use the [facility] in [place], [place] on DC. Plan Plan: CM Assessment, Discharge Planning for Home Anticipated, Assist PRN with /[facility] Services Discharge Plan: DC Date / final needs undetermined at this time. Pt going to OR today with ENT for likely trach. This [facility] discussed potential DC needs of HH and trach care on DC. Will continue to follow closely for DC Planning. Patient Address/Phone [address] [facility] [address] (home) Emergency Contact Extended Emergency Contact Information Primary Emergency Contact: Britany Penny [facility] Relation: Significant Other Healthcare Directive Transportation Does the patient need discharge transport arranged?: No Transportation Name, Phone and Availability #1: Significant Other: Britany Penny ([phone]) Does the patient use Medicaid Transportation?: No [...] Resources ? Coverage Primary Insurance: Commercial insurance ([employer]) Secondary Insurance: No insurance Additional Coverage: RX [...] ? Outpatient Therapy PT: No OT: No HOSPITAL ACCOUNT MANAGER: No ? Fdc Facility/Long Term SNF: No NH: No ? Inpatient Rehab IPR: No ? Long-Term Acute Care Hospital LTACH: No ? Acute Hospital Stay Acute Hospital Stay: No KAUR Duque, RN Nurse Neuro Urologist - Med 1 Service Pager: [phone] * Response Teams - Michele Mccall RN - 01/24/2018 9:42 AM CDT Rapid Response Team Progress Note Date: 01/24/2018 Time: 9:47 AM Patient: Kelvin Zaldivar Attending: Michele Alejandra DO Service: Med [id number] Admission Date: 01/24/2018 LOS: 0 days A Code/Rapid Response Timeline Event Report has been created for this patient on 01/24 at 0940. SOLAR SALES ASSESSOR called for evaluation of transport to ICU for closer monitoring of airway. Pt planned for ENT surgery today. After discussion between Dr. Flores and Dr. Hooper, plan will be to admit patient to ICU following procedure. Ok for patient to remain in current level of care until time of procedure. Primary care RN updated, ok with plan. Please call SOLAR SALES ASSESSOR for any further concern or changes in [...] CDT Transfer accepted from the ER at [facility] in [place]. Patient has no significant past medical history. [...] Performing Laboratory [facility] MAIN [facility] [address] [place] [address] * MAGNESIUM (02/14/2018 2:10 AM) Component Value Ref Range Magnesium 1.7 1.6 - 2.6 mg/dL Specimen Performing Laboratory [facility] MAIN [facility] [address] [place] [id number] * COMPREHENSIVE METABOLIC PANEL (02/14/2018 2:10 AM) [...] Performing Laboratory [facility] [address] [place] [address] * CBC AND DIFF (02/14/2018 2:10 AM) [...] Manual Specimen Performing Laboratory Blood MAIN [facility] [address] [place] [address] * CBC (02/13/2018 2:30 PM) Component Value [...] [place] Specimen Performing Laboratory Blood [facility] [address] [place] [address] * PHOSPHORUS (02/13/2018 3:25 AM) Component Value Ref Range Phosphorus 3.1 2.0 - 4.0 MG/DL Specimen Performing Laboratory Blood MAIN LAB [address] [place] [address] * MAGNESIUM (02/13/2018 3:25 AM) Component Value Ref Range Magnesium 1.7 1.6 - 2.6 mg/dL Specimen Performing Laboratory Blood MAIN LAB [address] [place] [address] * COMPREHENSIVE METABOLIC PANEL (02/13/2018 3:25 AM) [...] Specimen Performing Laboratory Blood MAIN [facility] [address] [place] [address] * CBC AND DIFF (02/13/2018 3:25 AM) [...] K/UL Specimen Performing Laboratory Blood MAIN [facility] [address] [place] [address] * CULTURE-URINE W/SENSITIVITY (02/12/2018 4:45 AM) Component Value Ref Range Battery Name URINE CULTURE Specimen Description URINE Special Requests NONE Culture NO GROWTH Report Status FINAL 02/13/2018 Specimen Performing Laboratory Urine MAIN LAB [address] [place] [address] * PHOSPHORUS (02/12/2018 3:45 AM) Component Value Ref Range Phosphorus 2.7 2.0 - 4.0 MG/DL Specimen Performing Laboratory Blood MAIN LAB [address] [place], [place] [id number] * MAGNESIUM (02/12/2018 3:45 AM) Component Value Ref Range Magnesium 1.7 1.6 - 2.6 mg/dL Specimen Performing Laboratory Blood MAIN LAB [address] [place] [address] * COMPREHENSIVE METABOLIC PANEL (02/12/2018 3:45 AM) [...] Specimen Performing Laboratory Blood MAIN [facility] [address] [place] [address] * CBC AND DIFF (02/12/2018 3:45 AM) [...] Specimen Performing Laboratory [facility] [address] [place] [address] * CULTURE-BLOOD W/SENSITIVITY (02/11/2018 2:10 PM) Component Value Ref Range Battery Name BLOOD CULTURE Specimen Description BLOOD LEFT ANTECUBITAL Special Requests NONE Culture NO GROWTH 5 DAYS Report Status FINAL 02/17/2018 Specimen Performing Laboratory Blood [facility] [address] [place] [address] * CULTURE-BLOOD W/SENSITIVITY (02/11/2018 2:08 PM) Component Value Ref Range Battery Name BLOOD CULTURE Specimen Description BLOOD LEFT PORT Special Requests NONE Culture NO GROWTH 5 DAYS Report Status FINAL 02/17/2018 Specimen Performing Laboratory Blood MAIN [facility] [address] [place] [address] * PHOSPHORUS (02/11/2018 5:11 AM) Component Value Ref Range Phosphorus 3.0 2.0 - 4.0 MG/DL Specimen Performing Laboratory Blood MAIN [facility] [address] [place] [address] * MAGNESIUM (02/11/2018 5:11 AM) Component Value Ref Range Magnesium 1.8 1.6 - 2.6 mg/dL Specimen Performing Laboratory Blood [facility]IN [facility] [address] [place] [address] * COMPREHENSIVE METABOLIC PANEL (02/11/2018 5:11 AM) [...] Specimen Performing Laboratory [facility] [address] [place] [address] * CBC AND DIFF (02/11/2018 5:11 AM) [...] Performing Laboratory [facility] [address] [place] [address] * SWALLOW MOTION SERIES (02/10/2018 11:55 AM) [...] Specimen Performing Laboratory Blood MAIN [facility] [address] [place] [address] * MAGNESIUM (02/10/2018 1:58 AM) Component Value Ref Range Magnesium 1.9 1.6 - 2.6 mg/dL Specimen Performing Laboratory Blood MAIN [facility] [address] [place] [address] * COMPREHENSIVE METABOLIC PANEL (02/10/2018 1:58 AM) [...] Specimen Performing Laboratory Blood [facility] [address] [place] [address] * CBC AND DIFF (02/10/2018 1:58 AM) [...] Specimen Performing Laboratory [facility] [address] [place] [address] * VRE SCREEN (02/10/2018 1:55 AM) Component Value Ref Range Battery Name VRE SCREEN Specimen Description PERIRECTAL SWAB Special Requests NONE Culture NO VRE ISOLATED Report Status FINAL 02/11/2018 Specimen Performing Laboratory Perirectal Swab MAIN LAB [address] [place] [address] * PHOSPHORUS (02/09/2018 2:21 AM) Component Value Ref Range Phosphorus 3.1 2.0 - 4.0 MG/DL Specimen Performing Laboratory Blood MAIN [facility] [address] [place] [address] * MAGNESIUM (02/09/2018 2:21 AM) Component Value Ref Range Magnesium 1.9 1.6 - 2.6 mg/dL Specimen Performing Laboratory Blood MAIN [facility] [address] [place] [address] * COMPREHENSIVE METABOLIC PANEL (02/09/2018 2:21 AM) [...] Specimen Performing Laboratory Blood [facility]IN [facility] [address] [place] [address] * CBC AND DIFF (02/09/2018 2:21 AM) [...] Performing Laboratory [facility] [address] [place] [address] * ABDOMEN AP ONLY (02/08/2018 10:07 AM) [...] katia compatible with known lymphadenopathy. Approved by Sehn Ahuja M.D. on 02/08/2018 11:16 AM By [...] compatible with known lymphadenopathy. Approved by Shen Ahjua M.D. on 02/08/2018 11:16 AM By my [...] Specimen Performing Laboratory Blood MAIN [facility] [address] [place] [address] * PHOSPHORUS (02/08/2018 3:35 AM) Component Value Ref Range Phosphorus 3.3 2.0 - 4.0 MG/DL Specimen Performing Laboratory Blood MAIN [facility] [address] [place] [address] * MAGNESIUM (02/08/2018 3:35 AM) Component Value Ref Range Magnesium 2.0 1.6 - 2.6 mg/dL Specimen Performing Laboratory Blood MAIN [facility] [address] [place] [address] * COMPREHENSIVE METABOLIC PANEL (02/08/2018 3:35 AM) [...] Specimen Performing Laboratory Blood [facility]IN [facility] [address] [place] [address] * CBC AND DIFF (02/08/2018 3:35 AM) [...] K/UL Specimen Performing Laboratory Blood MAIN [facility] [address] [place] [address] * SODIUM-URINE RANDOM (02/07/2018 11:56 AM) Component Value Ref Range Sodium, Random 35 MMOL/L Specimen Performing Laboratory Urine MAIN LAB [address] [place], [place] [id number] * CREATININE-URINE RANDOM (02/07/2018 11:56 AM) Component Value Ref Range Creatinine, Random 79 MG/DL Specimen Performing Laboratory Urine MAIN LAB [address] [place], [place] [id number] * URIC ACID (02/07/2018 4:40 AM) Component Value Ref Range Uric Acid 6.5 4.0 - 8.0 MG/DL Specimen Performing Laboratory Blood MAIN LAB [address] [place] [address] * PHOSPHORUS (02/07/2018 4:40 AM) Component Value Ref Range Phosphorus 4.8 (H) 2.0 - 4.0 MG/DL Specimen Performing Laboratory Blood MAIN [facility] [address] [place] [address] * MAGNESIUM (02/07/2018 4:40 AM) Component Value Ref Range Magnesium 2.1 1.6 - 2.6 mg/dL Specimen Performing Laboratory Blood MAIN [facility] [address] [place], [place] [id number] * COMPREHENSIVE METABOLIC PANEL (02/07/2018 4:40 AM) [...] Specimen Performing Laboratory Blood [facility]IN [facility] [address] [place] [address] * PROTIME INR (PT) (02/07/2018 4:40 AM) Component Value Ref Range INR 1.6 (H) 0.8 - 1.2 Specimen Performing Laboratory Blood MAIN [facility] [address] [place] [address] * CBC AND DIFF (02/07/2018 4:40 AM) [...] Performing Laboratory [facility] [address] [facility] [place] [address] * 2-D + DOPPLER ECHOCARDIOGRAM (02/06/2018 2:36 [...] 0.77 E/E' ratio 8.22 CV ECHO PV ENTRY LEVEL BUYER Amber RN LV mass 81.37 96 - 200 g RWT 0.54 <=0.42 TV rest pulmonary artery NA mmHg pressure Cardiology Ultrasound Siemens [id number] Machine Left Ventricle Mass Index 40.48 50 [...] Sat-Arterial 92.0 (L) 95 - 99 % Efpjozflqhx-ZDZ-Ctp 28.1 (H) 21 - 28 MMOL/L Specimen Performing Laboratory Blood, arterial - Blood MAIN LAB [address] [place] [address] * CULTURE-BLOOD W/SENSITIVITY (02/06/2018 5:56 AM) Component Value Ref Range Battery Name BLOOD CULTURE Specimen Description BLOOD LEFT ART STICK Special Requests NONE Culture NO GROWTH 5 DAYS Report Status FINAL 02/12/2018 Specimen Performing Laboratory Blood MAIN LAB [address] [place], [place] [id number] * STREPTOCOCCUS PNEUMO AG, URINE (02/06/2018 5:30 AM) Component Value Ref Range Battery Name STREP PNEUMO AG, UR Specimen Description URINE Special Requests NONE Antigen NEGATIVE Report Status FINAL 02/06/2018 Specimen Performing Laboratory Urine MAIN LAB [address] [place], [place] [id number] * LEGIONELLA ANTIGEN URINE,RAN (02/06/2018 5:30 AM) Component Value Ref Range Battery Name LEGIONELLA URINE ANTIGEN Specimen Description URINE Special Requests NONE Antigen NEGATIVE Report Status FINAL 02/06/2018 Specimen Performing Laboratory Urine MAIN LAB [address] [place], [place] [id number] * CULTURE-URINE W/SENSITIVITY (02/06/2018 5:30 AM) Component Value Ref Range Battery Name URINE CULTURE Specimen Description URINE Special Requests NONE Culture NO GROWTH Report Status FINAL 02/07/2018 Specimen Performing Laboratory Urine MAIN LAB [address] [place], [place] [id number] * CULTURE-BLOOD W/SENSITIVITY (02/06/2018 5:07 AM) Component Value Ref Range Battery Name BLOOD CULTURE Specimen Description BLOOD LEFT PORT Special Requests NONE Culture NO GROWTH 5 DAYS Report Status FINAL 02/12/2018 Specimen Performing Laboratory Blood MAIN LAB [address] [place], [place] [id number] * GRAM STAIN (02/06/2018 4:15 AM) Component Value Ref Range Battery Name GRAM STAIN Specimen Description TRACHEAL ASPIRATE Special Requests NONE Gram Stain GREATER THAN 25/LPF NEUTROPHILS 10-25/LPF SQUAMOUS EPITHELIAL CELLS MANY MIXED BACTERIA Report Status FINAL 02/06/2018 Specimen Performing Laboratory Tracheal Aspirate MAIN LAB [address] [place], [place] [id number] * CULTURE-RESP,LOWER W/SENSITIVITY (02/06/2018 4:15 AM) Component Value Ref Range Battery Name LOWER RESP CULTURE Specimen Description TRACHEAL ASPIRATE Special Requests NONE Direct Gram Stain GREATER THAN 25/LPF NEUTROPHILS 10-25/LPF SQUAMOUS EPITHELIAL CELLS MANY MIXED BACTERIA Culture Heavy growth NORMAL OROPHARYNGEAL WHIT Report Status FINAL 02/08/2018 Specimen Performing Laboratory Tracheal Aspirate MAIN LAB [address] [place] [address] * URIC ACID (02/06/2018 3:58 AM) Component Value Ref Range Uric Acid 8.3 (H) 4.0 - 8.0 MG/DL Specimen Performing Laboratory MAIN LAB [address] [place] [address] * LACTIC ACID (BG - RAPID LACTATE) (02/06/2018 3:58 AM) Component Value Ref Range Lactic Acid,BG 1.4 0.5 - 2.0 MMOL/L Specimen Performing Laboratory Blood MAIN LAB [address] [place], [place] [id number] * PROCALCITONIN (02/06/2018 3:58 AM) Component Value Ref Range Procalcitonin 0.25 (H) <0.10 NG/ML Specimen Performing Laboratory Blood MAIN LAB [address] [place], [place] [id number] * CBC (02/06/2018 3:58 AM) Component Value [...] [place] Specimen Performing Laboratory Blood MAIN LAB [address] [place] [address] * COMPREHENSIVE METABOLIC PANEL (02/06/2018 3:58 AM) [...] questions. Specimen Performing Laboratory Blood MAIN LAB [address] [place] [address] * TROPONIN-I (02/06/2018 3:58 AM) Component Value Ref Range Troponin-I 0.03 0.0 - 0.05 NG/ML Specimen Performing Laboratory Blood MAIN LAB [address] [place] [address] * PHOSPHORUS (02/06/2018 3:58 AM) Component Value Ref Range Phosphorus 4.8 (H) 2.0 - 4.0 MG/DL Specimen Performing Laboratory Blood MAIN LAB [address] [place] [address] * MAGNESIUM (02/06/2018 3:58 AM) Component Value Ref Range Magnesium 2.0 1.6 - 2.6 mg/dL Specimen Performing Laboratory Blood MAIN LAB [address] [place] [address] * BNP (B-TYPE NATRIURETIC PEPTI) (02/06/2018 3:58 AM) Component Value Ref Range B Type Natriuretic 153.0 (H) 0 - 100 PG/ML Peptide Specimen Performing Laboratory Blood MAIN LAB [address] [place] [address] * PHOSPHORUS (02/06/2018 3:34 AM) Component Value Ref Range Phosphorus 4.7 (H) 2.0 - 4.0 MG/DL Specimen Performing Laboratory Blood MAIN LAB [address] [place] [address] * MAGNESIUM (02/06/2018 3:34 AM) Component Value Ref Range Magnesium 2.0 1.6 - 2.6 mg/dL Specimen Performing Laboratory Blood MAIN LAB [address] [place] [address] * COMPREHENSIVE METABOLIC PANEL (02/06/2018 3:34 AM) [...] Specimen Performing Laboratory Blood MAIN LAB [address] [place] [address] * CBC (02/06/2018 3:34 AM) Component Value [...] [place] Specimen Performing Laboratory Blood MAIN LAB [address] [place] [address] * POC IONIZED CALCIUM (02/06/2018 3:27 AM) Component Value Ref Range Ionized Calcium-POC 1.23 1.0 - 1.3 MMOL/L Specimen Performing Laboratory MAIN LAB [address] [place] [address] * POC SODIUM (02/06/2018 3:27 AM) Component Value Ref Range Sodium-POC 138 137 - 147 MMOL/L Specimen Performing Laboratory MAIN LAB [address] [place], [place] [address] * POC POTASSIUM (02/06/2018 3:27 AM) Component Value Ref Range Potassium-POC 4.3 3.5 - 5.1 MMOL/L Specimen Performing Laboratory MAIN LAB [address] [place], [place] [address] * POC HEMATOCRIT (02/06/2018 3:27 AM) Component Value Ref Range Hemoglobin POC 13.6 13.5 - 16.5 GM/DL Hematocrit POC 40.0 40 - 50 % Specimen Performing Laboratory MAIN LAB [address] [place], [place] [address] * POC BLOOD GAS ARTERIAL (02/06/2018 3:27 AM) Component Value Ref Range PH-ART-POC 7.50 (H) 7.35 - 7.45 NLT8-ZWA-OME 37 35 - 45 MMHG PO2-ART-POC 55 (L) 80 - 100 MMHG Base Ex-ART-POC 6.0 MMOL/L O2 Sat-ART-POC 91.0 (L) 95 - 99 % Irjzcwmishd-IFC-YFJ 28.7 (H) 21 - 28 MMOL/L Specimen Performing Laboratory MAIN LAB [address] [place], [place] [address] * POC GLUCOSE (02/06/2018 3:21 AM) Component Value Ref Range Glucose, POC 105 (H) 70 - 100 MG/DL Specimen Performing Laboratory MAIN LAB [address] [place], [place] [id number] * BLOOD BANK SAMPLE HOLD (02/06/2018 3:12 AM) Component Value Ref Range BB Sample hold IN LAB Specimen Performing Laboratory MAIN LAB [address] [place], [place] [id number] * LACTIC ACID (BG - RAPID LACTATE) (02/06/2018 3:12 AM) Component Value Ref Range Lactic Acid,BG 1.4 0.5 - 2.0 MMOL/L Specimen Performing Laboratory Blood MAIN [facility] [address] [place] [address] * PTT (APTT) (02/06/2018 3:12 AM) Component Value Ref Range APTT 28.7 21.0 - 39.0 SEC Specimen Performing Laboratory Blood MAIN LAB [address] [place] [address] * PROTIME INR (PT) (02/06/2018 3:12 AM) Component Value Ref Range INR 1.1 0.8 - 1.2 Specimen Performing Laboratory Blood MAIN LAB [address] [place] [address] * COMPREHENSIVE METABOLIC PANEL (02/06/2018 2:20 AM) [...] questions. Specimen Performing Laboratory Blood MAIN LAB [address] [place] [address] * CBC AND DIFF (02/06/2018 2:20 AM) [...] Performing Laboratory [facility] [address] [place] [address] * CHEST SINGLE VIEW (02/06/2018 2:13 AM) Specimen Performing Laboratory KU RAD RESULTS Impressions 1. Development of small bilateral pleural effusions, greater on the right, with adjacent consolidation likely atelectasis. 2. Prominence of the mediastinum and bilateral katia compatible with known lymphadenopathy. Approved by Shne Ahuja M.D. on 02/06/2018 10:27 AM By [...] OPERATING PHYSICIAN: Dr. Hong Mcmahon and Dr. Doretah Noel. MEDICATIONS:I was personally responsible for the [...] CONTRAST:50 mL of Isovue 300 CATHETER: 18 Danish Ross G tube COMPLICATIONS: None TECHNIQUE/FINDINGS: Following [...] over the wire into the stomach.A 18 Danish Ross gastrostomy tube was placed over the [...] 50 mL of Isovue 300 CATHETER: 18 Danish Ross G tube COMPLICATIONS: None TECHNIQUE/FINDINGS: Following [...] the wire into the stomach. A 18 Danish Ross gastrostomy tube was placed over the [...] Performing Laboratory Blood [facility] [address] [place] [address] * CBC AND DIFF (02/05/2018 4:50 AM) [...] Specimen Performing Laboratory Blood MAIN LAB [address] [place] [address] * COMPREHENSIVE METABOLIC PANEL (02/04/2018 2:58 AM) [...] Specimen Performing Laboratory Blood MAIN LAB [address] [place] [address] * CBC AND DIFF (02/04/2018 2:58 AM) [...] Performing Laboratory [facility] [address] [place] [address] * VRE SCREEN (02/03/2018 10:27 PM) Component Value Ref Range Battery Name VRE SCREEN Specimen Description PERIRECTAL SWAB Special Requests NONE Culture NO VRE ISOLATED Report Status FINAL 02/05/2018 Specimen Performing Laboratory Perirectal Swab MAIN LAB [address] [place] [address] * IR CENTRAL VENOUS CATHETER (02/03/2018 8:43 [...] and upper superior vena cava. A 5 Danish vascular sheath and Kumpe catheter were then [...] and upper superior vena cava. A 5 Danish vascular sheath and Kumpe catheter were then [...] Specimen Performing Laboratory Blood MAIN LAB [address] [place] [address] * CBC AND DIFF (02/03/2018 6:57 AM) [...] Specimen Performing Laboratory Blood MAIN LAB [address] [place] [address] * TROPONIN-I (02/02/2018 2:46 AM) Component Value Ref Range Troponin-I 0.02 0.0 - 0.05 NG/ML Specimen Performing Laboratory Blood MAIN LAB [address] [place] [address] * COMPREHENSIVE METABOLIC PANEL (02/02/2018 2:46 AM) [...] Performing Laboratory [facility] [address] [place] [address] * CBC AND DIFF (02/02/2018 2:46 AM) [...] Specimen Performing Laboratory Blood MAIN [facility] [address] [place] [address] * COMPREHENSIVE METABOLIC PANEL (02/01/2018 3:43 AM) [...] Specimen Performing Laboratory Blood MAIN [facility] [address] [place] [address] * CBC AND DIFF (02/01/2018 3:43 AM) [...] K/UL Specimen Performing Laboratory Blood [facility] [address] [place] [address] * PHOSPHORUS (01/31/2018 3:53 AM) Component Value Ref Range Phosphorus 4.9 (H) 2.0 - 4.0 MG/DL Specimen Performing Laboratory Blood MAIN LAB [address] [place] [address] * MAGNESIUM (01/31/2018 3:53 AM) Component Value Ref Range Magnesium 2.1 1.6 - 2.6 mg/dL Specimen Performing Laboratory Blood [facility]IN [facility] [address] [place] [address] * COMPREHENSIVE METABOLIC PANEL (01/31/2018 3:53 AM) [...] Performing Laboratory [facility] [address] [place] [address] * CBC AND DIFF (01/31/2018 3:53 AM) [...] Performing Laboratory [facility] [address] [place] [address] * ABDOMEN AP ONLY (01/30/2018 8:14 AM) [...] Specimen Performing Laboratory Blood MAIN [facility] [address] [place] [address] * MAGNESIUM (01/30/2018 4:21 AM) Component Value Ref Range Magnesium 1.9 1.6 - 2.6 mg/dL Specimen Performing Laboratory Blood MAIN LAB [address] [place] [address] * COMPREHENSIVE METABOLIC PANEL (01/30/2018 4:21 AM) [...] Performing Laboratory [facility] [address] [place] [place] [address] * CBC AND DIFF (01/30/2018 4:21 AM) [...] Performing Laboratory [facility] [address] [place] [address] * MISCELLANEOUS SURGICAL PATHOLOGY REFERENCE LAB TEST (01/29/2018 10:00 AM) Component Value Ref Range Test NUT BU IHC Reference Lab PERFORMED AT [facility] [employer] Results Ref Lab RESULTS WILL BW REPORTED IN AN ADDENDUM Specimen Mail SLIDES P47 [id number] Specimen Performing Laboratory REFERENCE LAB * CBC [...] Performing Laboratory [facility] [address] [place] [address] * COMPREHENSIVE METABOLIC PANEL (01/29/2018 4:07 AM) [...] Specimen Performing Laboratory [facility] [address] [place] [address] * PHOSPHORUS (01/29/2018 4:07 AM) Component Value Ref Range Phosphorus 4.4 (H) 2.0 - 4.0 MG/DL Specimen Performing Laboratory [facility] [address] [place], [place] [id number] * MAGNESIUM (01/29/2018 4:07 AM) Component Value Ref Range Magnesium 2.0 1.6 - 2.6 mg/dL Specimen Performing Laboratory [facility] [address] [place] [address] * CBC AND DIFF (01/28/2018 3:51 AM) [...] K/UL Specimen Performing Laboratory [facility] [address] [place] [address] * COMPREHENSIVE METABOLIC PANEL (01/28/2018 3:51 AM) [...] questions. Specimen Performing Laboratory [facility] [address] [place] [address] * PHOSPHORUS (01/28/2018 3:51 AM) Component Value Ref Range Phosphorus 3.8 2.0 - 4.0 MG/DL Specimen Performing Laboratory [facility] [address] [place], [place] [id number] * MAGNESIUM (01/28/2018 3:51 AM) Component Value Ref Range Magnesium 2.0 1.6 - 2.6 mg/dL Specimen Performing Laboratory [facility] [address] [place], [place] [id number] * CBC AND DIFF (01/27/2018 3:57 AM) [...] Performing Laboratory [facility] [address] [place] [address] * COMPREHENSIVE METABOLIC PANEL (01/27/2018 3:57 AM) [...] Performing Laboratory [facility] [address] [place] [address] * PHOSPHORUS (01/27/2018 3:57 AM) Component Value Ref Range Phosphorus 2.8 2.0 - 4.0 MG/DL Specimen Performing Laboratory [facility] [address] [place] [address] * MAGNESIUM (01/27/2018 3:57 AM) Component Value Ref Range Magnesium 1.9 1.6 - 2.6 mg/dL Specimen Performing Laboratory [facility] [address] [place] [address] * CORTISOL,RANDOM (01/26/2018 5:50 AM) Component Value Ref Range Cortisol, Random 26.6 (H) 5.0 - 20.0 MCG/DL Specimen Performing Laboratory [facility] [address] [place] [address] * CHEST SINGLE VIEW (01/26/2018 1:05 AM) [...] Specimen Performing Laboratory [facility] [address] [place] [address] * PROTIME INR (PT) (01/26/2018 1:05 AM) Component Value Ref Range INR 1.3 (H) 0.8 - 1.2 Specimen Performing Laboratory [facility] [address] [place] [address] * CBC AND DIFF (01/26/2018 1:05 AM) [...] Specimen Performing Laboratory [facility] [address] [place] [address] * COMPREHENSIVE METABOLIC PANEL (01/26/2018 1:05 AM) [...] Specimen Performing Laboratory [facility] [address] [place] [address] * PHOSPHORUS (01/26/2018 1:05 AM) Component Value Ref Range Phosphorus 3.2 2.0 - 4.0 MG/DL Specimen Performing Laboratory [facility] [address] [place] [address] * MAGNESIUM (01/26/2018 1:05 AM) Component Value Ref Range Magnesium 1.9 1.6 - 2.6 mg/dL Specimen Performing Laboratory [facility] [address] [place] [address] * BLOOD GASES, PERIPHERAL VENOUS (01/25/2018 6:20 PM) Component Value Ref Range pH-Venous 7.37 7.30 - 7.40 PCO2-Venous 41 36 - 50 MMHG PO2-Venous 58 (H) 33 - 48 MMHG Base Deficit-Venous 1.4 MMOL/L O2 Sat-Venous 87.3 (H) 55 - 71 % Rwadxgcrbep-NLB-Yrd 23.0 MMOL/L Specimen Performing Laboratory Blood, venous - [facility] [address] [place] [address] * POC BLOOD GAS ARTERIAL (01/25/2018 3:14 PM) Component Value Ref Range PH-ART-POC 7.47 (H) 7.35 - 7.45 IOW1-BRL-NLR 29 (L) 35 - 45 MMHG PO2-ART-POC 62 (L) 80 - 100 MMHG Base Def-ART-POC 3.0 MMOL/L O2 Sat-ART-POC 93.0 (L) 95 - 99 % Gtvmbsqybir-NYB-PQS 20.6 (L) 21 - 28 MMOL/L Specimen Performing Laboratory MAIN LAB [address] [place] [address] * ABDOMEN AP ONLY (01/25/2018 10:39 AM) Specimen Performing Laboratory [facility] RAD RESULTS Impressions IMPRESSION: Enteric feeding tube placement as described. Finalized by Clement Betnley M.D. on 01/25/2018 11:20 AM. Dictated by [...] Specimen Performing Laboratory [facility] [address] [place] [address] * CBC AND DIFF (01/25/2018 3:16 AM) [...] Specimen Performing Laboratory [facility] [address] [place] [address] * PHOSPHORUS (01/25/2018 3:16 AM) Component Value Ref Range Phosphorus 5.6 (H) 2.0 - 4.0 MG/DL Specimen Performing Laboratory [facility] [address] [place] [address] * MAGNESIUM (01/25/2018 3:16 AM) Component Value Ref Range Magnesium 2.0 1.6 - 2.6 mg/dL Specimen Performing Laboratory [facility] [address] [place] [address] * SURGICAL PATHOLOGY (01/24/2018 6:05 PM) Component Value Ref Range PATHOLOGY REPORT [facility] [email or web address] Department of Pathology and Laboratory Medicine [address] [place] [address] Surgical Pathology Office:[phone]:[phone] SURGICAL PATHOLOGY REPORT NAME: KELVIN ZALDIVAR SURG PATH #: [id number] MR #: [id number] SPECIMEN CLASS: SR BILLING #: [id number] ALT ID #:LOCATION: [id number] DATE OF PROCEDURE: [...] NUT performed on block A2 at [facility] is negative in the tumor cells. ALTAGRACIA [...] for NUT is being performed at [facility] and be reported in an addendum PD-L1: Results: % Positive: 20% PD-L1 test name: DAKO PD-L1 IHC 22C3 pharmDX Cell types evaluated: Tumor cells Pursuant to the Umbrella Repairer Program at the [facility] Pathology Department, selected slides from this [...] of Pathology and Laboratory Medicine of the [facility] ([employer]) in compliance with CLIA'88 regulations.Some [...] of Pathology and Laboratory Medicine of the [facility].It has not been cleared or approved by the FDA.The FDA has determined that such clearance or approval is not necessary. Specimen Performing Laboratory [facility] LAB RESULTS * OSMOLALITY-URINE RANDOM (01/24/2018 6:00 PM) Component Value Ref Range Osmolality-Urine 847 50 - 1,400 MOS/KG Specimen Performing Laboratory Urine MAIN LAB [address] [place] [address] * CREATININE-URINE RANDOM (01/24/2018 6:00 PM) Component Value Ref Range Creatinine, Random 222 MG/DL Specimen Performing Laboratory [facility] [address] [place] [address] * SODIUM-URINE RANDOM (01/24/2018 6:00 PM) Component Value Ref Range Sodium, Random 146 MMOL/L Specimen Performing Laboratory [facility] [address] [place] [address] * URINALYSIS, MICROSCOPIC (01/24/2018 6:00 PM) Component Value Ref Range WBCs,UA 0-2 0 - 2 /HPF RBCs,UA 0-2 0 - 3 /HPF MucousUA TRACE Specimen Performing Laboratory [facility]IN [facility] [address] [place] [address] * URINALYSIS DIPSTICK (01/24/2018 6:00 PM) Component Value Ref Range Color,UA YELLOW Turbidity,UA 1+ (A) CLEAR-CLEAR Specific [place]-Urine 1.029 1.003 - 1.035 pH,UA 5.0 5.0 - 8.0 Protein,UA NEG NEG-NEG Glucose,UA NEG NEG-NEG Ketones,UA 1+ (A) NEG-NEG Bilirubin,UA NEG NEG-NEG Blood,UA NEG NEG-NEG Urobilinogen,UA NORMAL NORM-NORMAL Nitrite,UA NEG NEG-NEG Leukocytes,UA NEG NEG-NEG Urine Ascorbic Acid, UA NEG NEG-NEG Specimen Performing Laboratory Urine [facility] [address] [place] [address] * IR PERCUTANEOUS BIOPSY (01/24/2018 5:51 PM) [...] Performing Laboratory [facility] [address] [place] [address] * PHOSPHORUS (01/24/2018 5:30 PM) Component Value Ref Range Phosphorus 3.9 2.0 - 4.0 MG/DL Specimen Performing Laboratory [facility] [address] [place] [address] * MAGNESIUM (01/24/2018 5:30 PM) Component Value Ref Range Magnesium 1.9 1.6 - 2.6 mg/dL Specimen Performing Laboratory [facility] [address] [place] [address] * BASIC METABOLIC PANEL (01/24/2018 5:30 PM) [...] Specimen Performing Laboratory [facility] [address] [place] [address] * CBC (01/24/2018 5:30 PM) Component Value [...] Specimen Performing Laboratory [facility] [address] [place] [address] * FLOW CYTOMETRY (01/24/2018 5:00 PM) Component Value Ref Range PATHOLOGY REPORT [facility] [email or web address] Marjorie Tobar MD, Director of Clinical Laboratory Seven Reyes MD, Director of Flow Cytometry Laboratory Department of Pathology and Laboratory Medicine [address] [place] [address] Surgical Pathology Office:[phone]:[phone] FLOW CYTOMETRY REPORT NAME: KELVIN ZALDIVAR SURG PATH #: [id number] MR #: [id number] SPECIMEN CLASS: LC BILLING #: [id number] ALT ID #:LOCATION: [facility] DATE OF PROCEDURE: 01/24/2018 AGE:42 SEX: [...] Markers (% Positive Cells): CD19=8; CD20=8; CD23=0; [place]=4; Lambda=4; [place]:Lambda ratio=1.0 T Cell Associated Markers (% Positive Cells): CD2=82; CD3=78; CD4=29; CD5=70; CD7=78; CD8=46 CD4:CD8 ratio=0.6 Miscellaneous Markers (% Positive Cells): CD10=1; CD34=0; CD38=64; EV63=504; CD56=7; FMC7=0; UO775=9 Cell Viability (%): 92 Number of Cells Analyzed:24,863 Total Number of Markers: 23 Summary of Marker Combinations: [place]/Lambda/5/10/19/45/38/20;FMC7/23/5/34/200 /45/19;2/7/5/3/4/45/56/8 This test was developed and its performance characteristics determined by the [facility] Flow Cytometry Laboratory.It has not been cleared or approved by the U.S. Food and Drug Administration (FDA).The FDA has determined that such clearance or approval is not necessary. Specimen Performing Laboratory LAB RESULTS * LEUKEMIA/LYMPHOMA PANEL FLUID/TISSUE (01/24/2018 5:00 PM) Component Value Ref Range Leuk/Lymph Interpretation SEE PATHOLOGY REPORT Specimen/LLM RIGHT NECK MASS BIOPSY Specimen Performing Laboratory MAIN LAB [address] [place] [address] * CULTURE-TB (AFB) (01/24/2018 5:00 PM) Component Value Ref Range Battery Name AFB CULTURE Specimen Description BIOPSY R neck mass Special Requests NONE Culture NO GROWTH OF MYCOBACTERIA AT 6 WEEKS Report Status FINAL 03/17/2018 Specimen Performing Laboratory Biopsy MAIN LAB [address] [place] [address] * CULTURE-FUNGAL,OTHER (01/24/2018 5:00 PM) Component Value Ref Range Battery Name FUNGUS CULTURE Specimen Description BIOPSY R neck mass Special Requests NONE Culture NO GROWTH OF FUNGUS AT 4 WEEKS Report Status FINAL 02/24/2018 Specimen Performing Laboratory Biopsy MAIN LAB [address] [place] [address] * CULTURE-ANAEROBIC (01/24/2018 5:00 PM) Component Value Ref Range Battery Name ANAEROBE CULTURE Specimen Description BIOPSY R neck mass Special Requests NONE Culture NO ANAEROBES ISOLATED Report Status FINAL 01/29/2018 Specimen Performing Laboratory Biopsy [facility] [address] [place] [address] * CULTURE-WOUND/TISSUE/FLUID(AEROBIC ONLY)W/SENSITIVITY (01/24/2018 5:00 PM) Component Value Ref Range Battery Name ROUTINE CULTURE Specimen Description BIOPSY R neck mass Special Requests NONE Culture NO GROWTH 5 DAYS Report Status FINAL 01/29/2018 Specimen Performing Laboratory Biopsy [facility] [address] [place] [address] * CHEST 2 VIEWS (01/24/2018 2:38 AM) [...] 0.0 - 15.0 NG/ML Specimen Performing Laboratory [facility] [address] [place] [address] * LACTIC ACID(LACTATE) (01/24/2018 2:16 AM) Component Value Ref Range Lactic Acid 1.2 0.5 - 2.0 MMOL/L Specimen Performing Laboratory Blood [facility] [address] [place] [address] * PROCALCITONIN (01/24/2018 2:16 AM) Component Value Ref Range Procalcitonin 0.06 <0.10 NG/ML Specimen Performing Laboratory Blood [facility] [address] [place] [address] * CULTURE-BLOOD W/SENSITIVITY (01/24/2018 2:16 AM) Component Value Ref Range Battery Name BLOOD CULTURE Specimen Description BLOOD LEFT HAND Special Requests NONE Culture NO GROWTH 5 DAYS Report Status FINAL 01/30/2018 Specimen Performing Laboratory Blood [facility] [address] [place] [address] * CULTURE-BLOOD W/SENSITIVITY (01/24/2018 2:00 AM) Component Value Ref Range Battery Name BLOOD CULTURE Specimen Description BLOOD LEFT FA Special Requests NONE Culture NO GROWTH 5 DAYS Report Status FINAL 01/30/2018 Specimen Performing Laboratory Blood [facility] [address] [place] [address] * LDH-LACTATE DEHYDROGENASE (01/24/2018 12:54 AM) Component Value Ref Range Lactate Dehydrogenase 367 (H) 100 - 210 U/L Specimen Performing Laboratory [facility] [address] [place] [address] * BETA-HCG (01/24/2018 12:54 AM) Component Value Ref Range Beta-HCG,Serum 1 <5 U/L Specimen Performing Laboratory [facility] [address] [place] [address] * C REACTIVE PROTEIN (CRP) (01/24/2018 12:54 AM) Component Value Ref Range C-Reactive Protein 2.41 (H) <1.0 MG/DL Specimen Performing Laboratory [facility] [address] [place] [address] * COMPREHENSIVE METABOLIC PANEL (01/24/2018 12:54 AM) [...] Specimen Performing Laboratory [facility] [address] [place] [address] * PROTIME INR (PT) (01/24/2018 12:54 AM) Component Value Ref Range INR 1.2 0.8 - 1.2 Specimen Performing Laboratory [facility] [address] [place] [address] * CBC AND DIFF (01/24/2018 12:54 AM) [...] Performing Laboratory [facility] [address] [place] [address] * CT MISC EXTERNAL IMAGING (01/23/2018 6:50 [...] 1 capsule 1 capsule, Feeding Tube, NEEDED (COORDINATOR CARDIOPULMONARY SERVICES FROM RX), Starting 01/25/18 at 0935, Until [...]
--- OUTSIDE RECORDS SUMMARY | 2018-03-17 15:38 | XMS REPORT | Encounter Summary ---
Author Author [facility] Organization [facility] Address Unknown Phone Unavailable Care Team Providers Care Physical Therapy Supervisor Name Role Phone PCP Unavailable Encounter Details Date Type Department Care Team Description 01/23/2018 Hospital [facility] Encounter Hospital Radiology [address] [place] [address] Social History Tobacco Use Types Packs/Day Years [...]
--- OUTSIDE RECORDS SUMMARY | 2018-03-17 15:38 | XMS REPORT | Encounter Summary ---
Author Author [facility] Organization [facility] Address Unknown Phone Unavailable Care Team Providers Care Hoop Cutter Name Role Phone PCP Unavailable Encounter Details Date Type Department Care Team Description 01/23/2018 Hospital [facility] Encounter Hospital Radiology [address] [place] [address] Social History Tobacco Use Types Packs/Day Years [...]
--- OUTSIDE RECORDS SUMMARY | 2018-03-17 15:38 | XMS REPORT | Encounter Summary ---
Author Author [facility] Organization [facility] Address Unknown Phone Unavailable Care Team Providers Care Product Manufacturing Professional Name Role Phone PCP Unavailable Encounter Details Date Type Department Care Team Description 01/23/2018 Hospital [facility] Encounter Hospital Radiology [address] [place] [address] Social History Tobacco Use Types Packs/Day Years [...]
--- OUTSIDE RECORDS SUMMARY | 2018-03-17 15:38 | XMS REPORT | Encounter Summary ---
Author Author [facility] Organization [facility] Address Unknown Phone Unavailable Care Team Providers Care Inspector Aligning Name Role Phone PCP Unavailable Encounter Details Date Type Department Care Team Description 01/23/2018 Hospital [facility] Encounter Hospital Radiology [address] [place] [address] Social History Tobacco Use Types Packs/Day Years [...]
--- NOTE | 2018-03-17 16:24 | Progress Note-Hospitalist ---
Progress Note Progress Notes/Assess & Plan Date Seen 03/17/18 Time Seen by Provider: 16:20 Assessment & Plan The patient is well-known to me. He is a 42-year-old white male with recent diagnosis of a poorly differentiated lung carcinoma. This is centrally placed and has effectively obstructed his esophagus. It has involved his trachea as well and he has a tracheostomy. It is also known to involve the main pulmonary arteries and is in the immediate vicinity of the descending aorta. After his last visit he was placed in a chcf. He became acutely short of breath just prior to his admission. After presentation to the emergency room it appeared that he had a mucous plug which had caused his decline in respiratory function. Physical exam: The patient is a severely ill appearing white male who appears older than his stated 42 years. Auscultation of the lungs shows poor breath sounds and shallow respirations. CV is regular in the low 100 range. Both forearms are enlarged and suggest edema. His PEG tube has been dislodged earlier today and will be replaced. 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 Plan: Transfer to floor. Focused Exam Lactate Level 03/15/18 19:40: Lactic Acid Level 1.40 MADY FULLER MD March 17, 2018 16:24
[2018-03-17] MEDS ORDERED: D5 1/2 NS 1000 ML IV SOLUTION 1,000 ML IV ONE (16:40)
[2018-03-17] MEDS: D5 1/2 NS 1000 ML IV SOLUTION 1,000 ML IV SCH (16:54)
[2018-03-17] MEDS ORDERED: TROUGH ORDER-PHARMACY XX NR (18:00)
--- NOTE | 2018-03-17 20:07 | CONSULTATION REPORT ---
DATE OF SERVICE: 03/17/2018 The patient is admitted to ICU bed 8. REFERRING PHYSICIAN: Monie Elliott MD. IMPRESSION: 1. 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 2. Initial chemoradiation at [facility] with a break in treatment because of respiratory failure and ventilator dependence. He was restarted on radiation therapy at [facility] a week ago and was discharged to a penitentiary in [place], [place]. He was readmitted with increasing shortness of breath and respiratory distress probably related to mucus plugging. 3. Deconditioning. RECOMMENDATIONS: 1. Continue management of respiratory secretions as you are doing. 2. Resume radiation therapy tomorrow as the patient is clinically stable. 3. Agree with surgical consultation to reintroduce PEG tube as the patient is dependent on this for nutrition and hydration. 4. His prognosis is poor as the tumor has increased in size during the break from radiation therapy as evidenced by CT angiogram done at the time of current admission. 5. I will continue to withhold chemotherapy and proceed with radiation alone as the patient did not tolerate combined treatment in the past. He has significant deconditioning and would not tolerate combined therapy now. 6. I will follow the patient with you. 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 This mass was causing tracheal compression as well as esophageal compression. The patient was sent to [facility] and had a tracheostomy placed as well as the PEG tube. He also had evidence of superior vena cava syndrome and started on combined chemoradiation. He was discharged from the hospital, but ended up at [facility] with aspiration pneumonia and respiratory failure. He was ventilator dependent for more than two weeks, but was eventually weaned off. He resumed radiation therapy the following week and completed another week of treatment. He was then discharged to a penitentiary closer to home to continue the radiation therapy on an outpatient basis. He was brought to the emergency room from the penitentiary because of worsening respiratory status and admitted to the hospital for further management. His symptoms improved with bronchodilator therapy as well as deep suctioning raising the possibility of mucus plugging. Today, he is extremely weak, but he is breathing better. He is resting in bed. PAST MEDICAL HISTORY: Significant for no other major medical problems. PAST SURGICAL HISTORY: No major surgeries other than a tracheostomy and PEG tube placement in early January 2018. SOCIAL HISTORY: The patient has been living with his fiancee in [place], [place]. He has a 15-year-old daughter at home. Extensive history of tobacco use, smoking 1.5 to 2 packs of cigarettes daily for 24 years. He has not been smoking since the diagnosis. The patient uses alcohol intermittently, but no history of recreational drug use. 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 He has significant exposure to welding gases. FAMILY HISTORY: Unremarkable with no major malignancies in the family that the patient knows of. PHYSICAL EXAMINATION: GENERAL: Showed middle-aged male, weak appearing, awake and able to whisper his answers. VITAL SIGNS: He was afebrile, pulse rate 112, respirations 17, blood pressure 97/77, pulse oximetry showed 92% on 30% by trach collar. HEENT: Normocephalic with thinning hair, extraocular muscles intact, conjunctivae slightly pale, oral mucosa slightly dry. NECK: Showed a tracheostomy present. No lymphadenopathy palpable. CHEST: Symmetrical. Prominent anterior chest wall veins noted. LUNGS: With diminished breath sounds bilaterally without wheezes or rales. CARDIOVASCULAR: Borderline tachycardic, regular with no murmurs or gallops heard. ABDOMEN: Showed previous PEG tube site. No hepatosplenomegaly or other masses palpable. EXTREMITIES: Showed edema of bilateral upper extremities. NEUROLOGIC: Showed overall motor strength of 4/5 bilaterally. No focal motor deficits noted. CBC done today showed white count 26.4, hemoglobin 9.2, platelet count 317,000 with neutrophil count 24.7, lymphocyte count 0.3 and monocyte count 1.2. BMP showed sodium level of 132. BUN was 19 and creatinine 0.6 with GFR more than 60 mL per minute. Nonfasting glucose was 121. Blood cultures obtained on 03/15/2018 was negative. Urine culture showed more than 100,000 colonies of gram-negative rods. CT angiogram of the chest done on 03/15/2018 from the emergency room showed chronic SVC obstruction with multiple venous collaterals. Interval increase in size of anterior mediastinal mass with cardiac enlargement, central vascular congestion. Pericardial effusion and increasing bilateral pleural effusions. Left adrenal mass, which was present previously. No evidence of PE. Thank you for allowing me to participate in this patient's care. I will follow the patient with you and make appropriate recommendations. Job ID: [id number] DocumentID: [id number] Dictated Date: 03/17/2018 17:18:20 [employer] Date: 03/17/2018 20:05:52 Dictated By: HUBERT GUTIÉRREZ MD MTDD
[2018-03-18] VITALS (7 sets, daily range): BP systolic 112–127; BP diastolic 74–85
[2018-03-18] MEDS: RT-ALBUTEROL/IPRATROPIUM 3 ML (DUONEB) VIAL INH SCH ×6 (01:36→21:18)
[2018-03-18] MEDS: fentaNYL INJECTION 100 MCG/2 ML AMP IV PRN ×2 (03:05→06:07)
[2018-03-18] MEDS: D5 1/2 NS 1000 ML IV SOLUTION 1,000 ML IV SCH ×3 (03:09→22:50)
[2018-03-18] MEDS: HYDROmorphone 1 MG/ML (DILAUDID) 1 ML SYRINGE IV PRN ×8 (03:51→22:51)
[2018-03-18] MEDS: LEVOFLOXACIN 750 MG/150 ML IV 150 ML IV SCH (05:18)
--- NOTE | 2018-03-18 05:53 | Pulmonary Progress Note ---
Subjective Time Seen by Provider: 06:19 Subjective/Events-last exam pt complains of generalized pain. Focused Exam Lactate Level 03/15/18 19:40: Lactic Acid Level 1.40 Exam Exam Vital Signs Date Time Temp Pulse Resp B/P (MAP) Pulse Ox O2 Delivery O2 Flow Rate FiO2 03/18/18 04:58 92 Trach Collar 30.00 10.00 03/18/18 04:30 97.2 111 20 115/85 (95) 88 Trach Collar 30.00 8.00 03/18/18 01:42 93 Trach Collar 8.00 30 03/18/18 01:00 110 03/18/18 00:00 97.4 114 21 116/74 (88) 92 Trach Collar 30.00 8.00 03/17/18 22:53 95 Trach Collar 8.00 30 03/17/18 20:27 Trach Collar 30 03/17/18 20:15 111 03/17/18 20:00 98.0 120 20 111/76 (88) 90 Trach Collar 30.00 03/17/18 18:10 95 Trach Collar 8.00 30 03/17/18 18:00 111 15 97/66 (76) 97 Trach Collar 30.00 03/17/18 17:00 112 18 105/78 (87) 97 Trach Collar 30.00 03/17/18 16:14 Trach Collar 30 03/17/18 16:00 112 17 97/77 (84) 92 Trach Collar 30.00 03/17/18 15:00 112 12 100/73 (82) 95 Trach Collar 30.00 03/17/18 14:27 93 Trach Collar 8.00 30 03/17/18 14:00 109 12 100/71 (81) 91 Trach Collar 30.00 03/17/18 13:04 112 03/17/18 13:00 112 14 102/79 (87) 94 Trach Collar 30.00 03/17/18 12:00 111 13 102/78 (86) 95 Trach Collar 30.00 03/17/18 11:44 Trach Collar 30 03/17/18 11:43 96.7 03/17/18 11:00 112 18 115/85 (95) 99 Trach Collar 30.00 03/17/18 10:26 94 Trach Collar 8.00 30 03/17/18 10:00 108 15 98/79 (85) 94 Trach Collar 30.00 03/17/18 09:00 107 18 103/78 (86) 96 Trach Collar 30.00 03/17/18 08:30 Trach Collar 30 03/17/18 08:00 97.5 109 12 93/72 (79) 96 Trach Collar 30.00 03/17/18 07:16 97 Trach Collar 8.00 30 03/17/18 07:00 107 13 96/80 (85) 96 Trach Collar 30.00 03/17/18 07:00 108 03/17/18 06:00 110 13 101/74 (83) 98 Trach Collar 30.00 I & O 03/18/18 07:00 Intake Total 1625.0 ml Output Total 0 ml Balance 1625.0 ml General Appearance: No Apparent Distress, Chronically ill, Cachetic HEENT: PERRL/EOMI; No Scleral Icterus (L), No Scleral Icterus (R) Neck: Supple; No JVD; Other (trach) Respiratory: No Respiratory Distress, Decreased Breath Sounds, Other (trach dependent- on trach shield) Cardiovascular: Regular Rate, Rhythm, No Murmur Capillary Refill: Less Than 3 Seconds Gastrointestinal: normal bowel sounds, guarding, tenderness (left upper quadrant) Extremity: No Calf Tenderness, No Pedal Edema Neurologic/Psychiatric: Alert, Oriented x3, No Motor/Sensory Deficits Skin: Normal Color, Warm/Dry Lymphatic: No Adenopathy Results Lab Laboratory Tests 03/17/18 04:10 Assessment/Plan Assessment/Plan 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 -Oncology consulted -Plan is for radiation starting today. Chemo is still on hold secondary to patients weakness and not tolerating prior. 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 He is still currently a full code per his/family request. Family has been extensively educated about disease and poor prognosis. 232 ALVINA MCADAMS DO March 18, 2018 05:53
[2018-03-18 06:17] LABS: BASOPHILS % (AUTO) 0 % (0-10); EOSINOPHILS % (AUTO) 0 % (0-10); HEMATOCRIT 28 % (40-54); HEMOGLOBIN 9.2 G/DL (13.3-17.7); LYMPHOCYTES # (AUTO) 0.3 X 10^3 (1.0-4.0); LYMPHOCYTES % (AUTO) 1 % (12-44); MEAN CORPUSCULAR HEMOGLOBIN 31 PG (25-34); MEAN CORPUSCULAR HGB CONC 33 G/DL (32-36); MEAN CORPUSCULAR VOLUME 93 FL (80-99); MEAN PLATELET VOLUME 8.6 FL (7.4-10.4); MONOCYTES # (AUTO) 1.2 X 10^3 (0.0-1.0); MONOCYTES % (AUTO) 4 % (0-12); NEUTROPHILS # (AUTO) 30.4 X 10^3 (1.8-7.8); NEUTROPHILS % (AUTO) 95 % (42-75); PLATELET COUNT 367 10^3/uL (130-400); RED BLOOD COUNT 2.99 10^6/uL (4.35-5.85); RED CELL DISTRIBUTION WIDTH 17.7 % (10.0-14.5)
[2018-03-18] MEDS: KETOROLAC 30 MG/ML VIAL IV PRN ×2 (06:20→15:59)
[2018-03-18] MEDS: VANCOMYCIN 1250 MG/NS 250 ML IVPB IV SCH ×4 (06:22→19:39)
[2018-03-18 06:37] LABS: BUN/CREATININE RATIO 39; CALCIUM 8.7 MG/DL (8.5-10.1); CARBON DIOXIDE 24 MMOL/L (21-32); CHLORIDE 97 MMOL/L (98-107); CREATININE SERUM 0.57 MG/DL (0.60-1.30); GFR ESTIMATED > 60; GLUCOSE 123 MG/DL (70-105); MAGNESIUM 1.5 MG/DL (1.8-2.4); PHOSPHORUS 3.8 MG/DL (2.3-4.7); POTASSIUM 4.6 MMOL/L (3.6-5.0); SODIUM 132 MMOL/L (135-145)
[2018-03-18] MEDS: POTASSIUM CL 10MEQ/50ML IVPB 50 ML IV SCH (06:56)
[2018-03-18] MEDS: MAGNESIUM 1 GM/100 ML IVPB 100 ML IV SCH (06:57)
[2018-03-18] MEDS: KCL 20 MEQ TAB (K-DUR) PO SCH (06:57)
[2018-03-18] MEDS: PANTOPRAZOLE 40 MG/10 ML (PROTONIX) VIAL IV SCH (07:52)
[2018-03-18] MEDS: CEFEPIME INJECTION 2,000 MG in NS (IVPB) 50 ML IV SCH ×2 (07:53→18:31)
--- NOTE | 2018-03-18 12:16 | Progress Note-Hospitalist ---
Progress Note Progress Notes/Assess & Plan Date Seen 03/18/18 Time Seen by Provider: 12:07 Assessment & Plan Sodium is noted that the patient has had a white blood count significantly elevated during his hospitalization with out fever or other evidence of infection. The white count started at 27,800 and is 32,000 today. I reviewed his CT scan with contrast from admission. It shows significant increase in bilateral pleural effusion in addition the central tumor mass appears to be greater with the possibility of extension into the right neck. Yesterday I noted that he had a rather symmetrical swelling of the arms to a degree that Vega would be proud. Physical exam: He is alert and lying quietly in bed. He has jugular venous distention at 60 bilaterally. This would appear to explain the forearm edema and obstruction of the superior vena cava. Lungs show distant breath sounds. CV shows a rate in the low 100s. The legs are quite thin with loss of muscle mass. Impression: Advanced and advancing undifferentiated lung cancer with central position and obstruction of the superior vena cava, the esophagus, the main pulmonary artery and advancing in the area of the ascending aorta. Comment: The patient clings to the idea of fighting the good fight. This is a clearly terminal situation. Focused Exam Lactate Level 03/15/18 19:40: Lactic Acid Level 1.40 MADY FULLER MD March 18, 2018 12:16
--- NOTE | 2018-03-18 13:13 | Occ Therapy Progress Note ---
Therapy Progress Note Pt. in bed. OT attempts treatment with him. Noted that pt. in same clothing that he was yesterday. OT offers to assist him to bathe and dress, or even to dress to change his clothing. Pt. declines. States, "maybe later." Pt. is reminded that he told this therapist that yesterday. Pt. states, "I'm not doing it." OT let nursing know that all attempts were declined. 1106 1, visit Declined tx LO VILLAVICENCIO OT March 18, 2018 13:13
--- NOTE | 2018-03-18 13:44 | Physical Therapy Progress Note ---
Therapy Progress Note Patient declined PT this p.m. due to feeling ill. PT will attempt in a.m. 1 ref HELEN GN PT March 18, 2018 13:44
--- NOTE | 2018-03-18 15:32 | Progress Note (SOAP) ---
Subjective Date Seen by Provider: March 18, 2018 Time Seen by Provider: 14:00 Review of Systems Cardiovascular: Palpitations, Paroxysmal Noc. Dyspnea; No: Chest Pain, Orthopnea, Edema, Lt Headedness, Other Neurological: Weakness, Confusion Focused Exam Lactate Level 03/15/18 19:40: Lactic Acid Level 1.40 Objective Exam Last Set of Vital Signs Vital Signs Date Time Temp Pulse Resp B/P (MAP) Pulse Ox O2 Delivery O2 Flow Rate FiO2 03/18/18 12:00 96.6 109 18 112/83 (93) 90 Trach Collar 30.00 8.00 03/18/18 11:10 30 Capillary Refill : Less Than 3 Seconds I&O Intake and Output 03/18/18 00:00 Intake Total 825.0 ml Output Total 0 ml Balance 825.0 ml Intake Oral 0 ml IV Total 825.0 ml Output Urine Total 0 ml # Bowel Movements 1 Results Lab Laboratory Tests 03/17/18 18:00: Vancomycin Level Trough 14.4 03/18/18 06:03: White Blood Count 32.0*H, Red Blood Count 2.99L, Hemoglobin 9.2L, Hematocrit 28L , Mean Corpuscular Volume 93, Mean Corpuscular Hemoglobin 31, Mean Corpuscular Hemoglobin Concent 33, Red Cell Distribution Width 17.7H, Platelet Count 367, Mean Platelet Volume 8.6, Neutrophils (%) (Auto) 95H, Lymphocytes (%) (Auto) 1L , Monocytes (%) (Auto) 4, Eosinophils (%) (Auto) 0, Basophils (%) (Auto) 0, Neutrophils # (Auto) 30.4H, Lymphocytes # (Auto) 0.3L, Monocytes # (Auto) 1.2H, Eosinophils # (Auto) 0.0, Basophils # (Auto) 0.0, Sodium Level 132L, Potassium Level 4.6, Chloride Level 97L, Carbon Dioxide Level 24, Anion Gap 11, Blood Urea Nitrogen 22H, Creatinine 0.57L, Estimat Glomerular Filtration Rate > 60, BUN/Creatinine Ratio 39, Glucose Level 123H, Calcium Level 8.7, Phosphorus Level 3.8, Magnesium Level 1.5L Microbiology 03/15/18 Blood Culture - Preliminary, Resulted No growth 03/15/18 Urine Culture - Preliminary, Resulted Gram Negative John Assessment/Plan Assessment/Plan Assess & Plan/Chief Complaint Assessment --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 -Briefly discussed recommendation for hospice. -Patient was asked if he had any questions or would like to discuss anything. Adequate time was given. Patient shook his head "no". -Offered patient to come back and speak with him if he thinks of questions in the future. -Discussed case with Dr. Miles. 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
[2018-03-18] MEDS: LORazepam INJ 2 MG/ML (ATIVAN) VIAL IV PRN (19:48)
[2018-03-19 00:07] VITALS: BP 118/64
[2018-03-19] MEDS: fentaNYL PATCH 50 MCG (DURAGESIC) TOP SCH (00:19)
[2018-03-19] MEDS: KETOROLAC 30 MG/ML VIAL IV PRN ×2 (00:26→08:24)
[2018-03-19] MEDS: RT-ALBUTEROL/IPRATROPIUM 3 ML (DUONEB) VIAL INH SCH ×6 (01:36→22:41)
[2018-03-19] MEDS: HYDROmorphone 1 MG/ML (DILAUDID) 1 ML SYRINGE IV PRN ×5 (01:39→11:39)
[2018-03-19 04:33] VITALS: BP 115/63
[2018-03-19 04:59] LABS: BASOPHILS # (AUTO) 0.1 10^3/uL (0.0-0.1); BASOPHILS % (AUTO) 0 % (0-10); EOSINOPHILS # (AUTO) 0.1 10^3/uL (0.0-0.3); EOSINOPHILS % (AUTO) 0 % (0-10); HEMATOCRIT 29 % (40-54); HEMOGLOBIN 9.4 G/DL (13.3-17.7); LYMPHOCYTES # (AUTO) 0.5 X 10^3 (1.0-4.0); LYMPHOCYTES % (AUTO) 1 % (12-44); MEAN CORPUSCULAR HEMOGLOBIN 30 PG (25-34); MEAN CORPUSCULAR HGB CONC 33 G/DL (32-36); MEAN CORPUSCULAR VOLUME 93 FL (80-99); MEAN PLATELET VOLUME 8.5 FL (7.4-10.4); MONOCYTES # (AUTO) 1.6 X 10^3 (0.0-1.0); MONOCYTES % (AUTO) 4 % (0-12); NEUTROPHILS # (AUTO) 34.2 X 10^3 (1.8-7.8); NEUTROPHILS % (AUTO) 94 % (42-75); PLATELET COUNT 401 10^3/uL (130-400); RED BLOOD COUNT 3.11 10^6/uL (4.35-5.85); RED CELL DISTRIBUTION WIDTH 17.2 % (10.0-14.5)
[2018-03-19 05:20] LABS: BUN/CREATININE RATIO 42; CALCIUM 8.9 MG/DL (8.5-10.1); CARBON DIOXIDE 23 MMOL/L (21-32); CHLORIDE 97 MMOL/L (98-107); CREATININE SERUM 0.64 MG/DL (0.60-1.30); GFR ESTIMATED > 60; GLUCOSE 114 MG/DL (70-105); MAGNESIUM 1.7 MG/DL (1.8-2.4); PHOSPHORUS 3.9 MG/DL (2.3-4.7); POTASSIUM 4.6 MMOL/L (3.6-5.0); SODIUM 131 MMOL/L (135-145); WHITE BLOOD COUNT 36.4 10^3/uL (4.3-11.0)
[2018-03-19] MEDS: KCL 20 MEQ TAB (K-DUR) PO SCH (06:00)
[2018-03-19] MEDS: POTASSIUM CL 10MEQ/50ML IVPB 50 ML IV SCH (06:00)
[2018-03-19] MEDS: MAGNESIUM 1 GM/100 ML IVPB 100 ML IV SCH (06:00)
[2018-03-19] MEDS: LEVOFLOXACIN 750 MG/150 ML IV 150 ML IV SCH (07:03)
--- NOTE | 2018-03-19 07:35 | Pulmonary Progress Note ---
Subjective Time Seen by Provider: 07:34 Subjective/Events-last exam PT is not a candidate for chemo or radiation. Exam Exam Vital Signs Date Time Temp Pulse Resp B/P (MAP) Pulse Ox O2 Delivery O2 Flow Rate FiO2 03/19/18 04:33 98.2 110 17 115/63 (80) 93 Trach Collar 30.00 8.00 03/19/18 01:37 84 Trach Collar 8.00 40 03/19/18 01:00 112 03/19/18 00:07 98.7 115 19 118/64 (82) 90 Trach Collar 30.00 8.00 03/18/18 23:52 96 Trach Collar 8.00 50 03/18/18 21:18 94 Trach Collar 8.00 50 03/18/18 21:00 Trach Collar 8.00 30 03/18/18 20:00 97 Trach Collar 30.00 10.00 03/18/18 19:32 88 Trach Collar 8.00 30 03/18/18 19:05 98.0 110 19 127/81 (96) 89 Trach Collar 30.00 8.00 03/18/18 19:01 109 03/18/18 15:35 97.9 109 20 116/82 (93) 92 Trach Collar 30.00 8.00 03/18/18 15:14 90 Trach Collar 8.00 30 03/18/18 13:01 108 03/18/18 12:00 96.6 109 18 112/83 (93) 90 Trach Collar 30.00 8.00 03/18/18 11:10 90 Trach Collar 8.00 30 03/18/18 11:10 107 90 03/18/18 09:00 Trach Collar 8.00 30 03/18/18 08:44 98.0 106 16 112/83 (93) 91 Trach Collar 30.00 8.00 I & O 03/19/18 07:00 Intake Total 1312.5 ml Output Total 0 ml Balance 1312.5 ml General Appearance: No Apparent Distress, Chronically ill, Cachetic HEENT: PERRL/EOMI; No Scleral Icterus (L), No Scleral Icterus (R) Neck: Supple; No JVD; Other (trach) Respiratory: No Respiratory Distress, Decreased Breath Sounds, Other (trach dependent- on trach shield) Cardiovascular: Regular Rate, Rhythm, No Murmur Capillary Refill: Less Than 3 Seconds Gastrointestinal: normal bowel sounds, guarding, tenderness (left upper quadrant) Extremity: No Calf Tenderness, No Pedal Edema Neurologic/Psychiatric: Alert, Oriented x3, No Motor/Sensory Deficits Skin: Normal Color, Warm/Dry Lymphatic: No Adenopathy Results Lab Laboratory Tests 03/18/18 06:03 03/19/18 04:50 Assessment/Plan Assessment/Plan 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 -Oncology consulted -PT was told he is not a candidate for chemo or radiation therapy by oncology. 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 Medical care is futile. PT was told he is not a candidate for chemo or radiation therapy by oncology. He is still currently a full code per his/family request. Family has been extensively educated about disease and poor prognosis. Pt needs to be hospice care only. 232 ALVINA MCADAMS DO March 19, 2018 07:35
[2018-03-19 08:00] VITALS: BP 109/77
--- NOTE | 2018-03-19 08:13 | Diagnostic Imaging Report ---
INDICATION: Pneumonia. Time of exam 2:45 AM Correlation is made with prior study from 03/17/2018. The tracheostomy tube has the tip at the level of the clavicular head. Bibasilar infiltrates and pleural effusion showed no real change. Heart size is stable. Upper lung sweeney are clear. Left chest port has tip overlying the right atrium. IMPRESSION: Stable bilateral infiltrates and pleural effusions when compared with examination from 03/17/2018. Dictated by: Dictated on workstation # [id number]
[2018-03-19] MEDS: PANTOPRAZOLE 40 MG/10 ML (PROTONIX) VIAL IV SCH (08:24)
[2018-03-19] MEDS: VANCOMYCIN 1250 MG/NS 250 ML IVPB IV SCH ×2 (08:24)
[2018-03-19] MEDS: CEFEPIME INJECTION 2,000 MG in NS (IVPB) 50 ML IV SCH ×2 (08:25→20:03)
[2018-03-19] MEDS: D5 1/2 NS 1000 ML IV SOLUTION 1,000 ML IV SCH ×3 (08:26→19:36)
--- NOTE | 2018-03-19 10:34 | Physical Therapy Progress Note ---
Therapy Progress Note Attempted treatment with patient this morning but he refused. Will try back this afternoon. CHAN JOSE PT March 19, 2018 10:34
[2018-03-19 12:00] VITALS: BP 112/62
[2018-03-19] MEDS: LORazepam INJ 2 MG/ML (ATIVAN) VIAL IV PRN ×2 (12:25→21:15)
--- NOTE | 2018-03-19 13:14 | Occupational Ther Daily Note ---
OT Current Status-Daily Note Subjective Pt. states that he is really tired. Appearance Pt. in bed. Pt. in clothing that he came in with. Pt. was strongly encouraged to let OT assist him with ADLs, as he has not changed his clothing and has refused this since admission. Mental Status/Objective Patient Orientation: Person Functional [place] Measure 0=Not Assessed/NA 4=Minimal Assistance 1=Total Assistance 5=Supervision or Setup 2=Maximal Assistance 6=Modified [place] 3=Moderate Assistance 7=Complete [place]atch Attachments: IV, Oxygen, Telemetry ADL-Treatment Bathing (FIM): 1 (Pt. requires dependent assist to bathe. Pt. does not initiate this task at all. OT completed spongebath in bed.) Upper Body (FIM): 1 (Pt. indicates that he cant move and that he doesn't want to be moved to remove his shirt. Nursing is consulted. Pt. requests for nursing to cut his shirt off in bed. Nursing confirms this several times with pt. Pt. is adament. ) Lower Body Dressing (FIM): 1 (Pt. is dependent to doff pajama pants in the bed. ) Pt is spongebathed in bed and clothing is taken off of him. OT applies a hospital gown. Pt. is positioned to make him comfortable. Due to inability to participate, and severity of medical condition, it is felt that pt. would not benefit from skilled treatment at this time. Education OT Patient Education: Correct positioning, Modified ADL techniques, Progress toward Goal/Update tx plan, Purpose of tx/functional activities, Reviewed precautions, Rehab process Teaching Recipient: Patient Teaching Methods: Demonstration, Discussion Response to Teaching: Verbalize Understanding OT Short Term Goals Short Term Goals 1=Demonstrate adherence to instructed precautions during ADL tasks. 2=Patient will verbalize/demonstrate understanding of assistive devices/ modifications for ADL. 3=Patient will improve strength/tolerance for activity to enable patient to perform ADL's. OT Raw Shellfish Preparer Goals Raw Shellfish Preparer Goals Time Frame: March 24, 2018 Bathing(FIM): 4 Upper Body Dressing(FIM): 5 Lower Body Dressing(FIM): 5 Toileting(FIM): 6 Transfers (B,C,W/C) (FIM): 6 Toilet/Commode Transfer(FIM): 6 Additional Goals: 1-Demonstrate ADL Tasks, 2-Verbalize Understanding, 3- ImproveStrength/Isaiah 1=Demonstrate adherence to instructed precautions during ADL tasks. 2=Patient will verbalize/demonstrate understanding of assistive devices/ modifications for ADL. 3=Patient will improve strength/tolerance for activity to enable patient to perform ADL's. OT Education/Plan Problem List/Assessment Assessment: Decreased Activ Tolerance, Decreased UE Strength, Dependent Transfers, Impaired Bed Mobility, Impaired Coordination, Impaired Funct Balance , Impaired I ADL's, Impaired Self-Care Skills, Restricted Funct UE ROM Discharge Recommendations Plan/Recommendations: Discontinue OT Therapy D/C Recommendations: 24 hr Supervision Comment Pt. unable to participate in skilled treatment. Pt. has refused the last two days, and only agreed this date due to OT insistency. Pt. would benefit from continued nursing care 24 hours per day. Treatment Plan/Plan of Care Treatment,Training & Education: Yes Plan of Care: ADL Retraining, Functional Mobility, UE Funct Exercise/Act Treatment Duration: March 24, 2018 Frequency: 5 times per week Estimated Hrs Per Day: .5 hour per day Agreement: Yes Rehab Potential: Guarded Time/GCodes Start Time: 11:05 Stop Time: 11:25 Total Time Billed (hr/min): 20 Billed Treatment Time 1, ADL LO VILLAVICENCIO OT March 19, 2018 13:14
[2018-03-19] MEDS ORDERED: NS IV 1000 ML 1,000 ML IV SCH (14:02)
[2018-03-19] MEDS: morphine PCA 30 MG/30 ML VIAL IV PRN ×2 (14:40→19:38)
--- NOTE | 2018-03-19 14:41 | Progress Note-Standard ---
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 Patient was on combined chemotherapy and radiation which was started at [facility]. He had more than 2 weeks break in treatment because of respiratory failure and ventilator dependence. This is also significantly deconditioned. Radiation therapy was resumed last week and patient was discharged to a long-term in [place]. He was readmitted this past weekend with the increasing shortness of breath and probable mucous plugging. CTA of the chest at the time of admission showed progression of anterior mediastinal mass with worsening SVC syndrome. Dr. Calzada evaluated patient yesterday and has decided to discontinue radiation therapy because of progressive disease. Today patient is feeling much worse and is developing swelling of his neck and face. Previously he has had bilateral upper extremity swelling which is also worsening clinically consistent with progressive SVC syndrome. He is receiving Dilaudid 2 mg IV every 2 hours because of pain in his anterior chest and upper extremities. The tube was dislodged few days ago and Dr. Markham felt that it would be difficult to put another PEG tube because of esophageal obstruction or narrowing. Clinically his condition is worsening and performance status is a 4 by ECOG scale. Family conference has been scheduled for tomorrow evening when his fiance and daughter could be here. Overall prognosis is poor. I will start him on morphine by APPLICATION SUPPORT TECHNICIAN to better control the discomfort and air hunger. Will follow patient with you. HUBERT GUTIÉRREZ March 19, 2018 14:41
--- NOTE | 2018-03-19 14:52 | Physical Therapy Progress Note ---
Therapy Progress Note Patient refused physical therapy again in the afternoon. Will try again in the morning. CHAN JOSE PT March 19, 2018 14:52
[2018-03-19 15:30] VITALS: BP 125/69
[2018-03-19 19:25] VITALS: BP 114/83
[2018-03-20 00:10] VITALS: BP 118/57
[2018-03-20] MEDS: RT-ALBUTEROL/IPRATROPIUM 3 ML (DUONEB) VIAL INH SCH ×5 (02:40→20:01)
[2018-03-20] MEDS: RT-ALBUTEROL/IPRATROPIUM 3 ML (DUONEB) VIAL INH PRN ×2 (02:50→20:15)
[2018-03-20] MEDS ORDERED: NALOXONE 0.4 MG/ML 1 ML (NARCAN) VIAL IV ONE (03:30)
[2018-03-20] MEDS: LORazepam INJ 2 MG/ML (ATIVAN) VIAL IV PRN (03:32)
[2018-03-20 03:57] VITALS: BP 121/77
[2018-03-20 05:04] LABS: BASOPHILS # (AUTO) 0.1 10^3/uL (0.0-0.1); BASOPHILS % (AUTO) 0 % (0-10); EOSINOPHILS # (AUTO) 0.1 10^3/uL (0.0-0.3); EOSINOPHILS % (AUTO) 0 % (0-10); HEMATOCRIT 29 % (40-54); HEMOGLOBIN 9.3 G/DL (13.3-17.7); LYMPHOCYTES # (AUTO) 0.3 X 10^3 (1.0-4.0); LYMPHOCYTES % (AUTO) 1 % (12-44); MEAN CORPUSCULAR HEMOGLOBIN 30 PG (25-34); MEAN CORPUSCULAR HGB CONC 32 G/DL (32-36); MEAN CORPUSCULAR VOLUME 95 FL (80-99); MEAN PLATELET VOLUME 8.2 FL (7.4-10.4); MONOCYTES # (AUTO) 1.8 X 10^3 (0.0-1.0); MONOCYTES % (AUTO) 5 % (0-12); NEUTROPHILS # (AUTO) 35.3 X 10^3 (1.8-7.8); NEUTROPHILS % (AUTO) 94 % (42-75); PLATELET COUNT 444 10^3/uL (130-400); RED BLOOD COUNT 3.07 10^6/uL (4.35-5.85); RED CELL DISTRIBUTION WIDTH 17.6 % (10.0-14.5)
[2018-03-20 05:14] LABS: WHITE BLOOD COUNT 37.5 10^3/uL (4.3-11.0)
[2018-03-20] MEDS: KCL 20 MEQ TAB (K-DUR) PO SCH ×2 (05:19→19:48)
[2018-03-20 05:24] LABS: BUN/CREATININE RATIO 35; CALCIUM 8.9 MG/DL (8.5-10.1); CARBON DIOXIDE 21 MMOL/L (21-32); CHLORIDE 97 MMOL/L (98-107); CREATININE SERUM 0.78 MG/DL (0.60-1.30); GFR ESTIMATED > 60; GLUCOSE 113 MG/DL (70-105); MAGNESIUM 1.7 MG/DL (1.8-2.4); PHOSPHORUS 4.6 MG/DL (2.3-4.7); SODIUM 129 MMOL/L (135-145)
[2018-03-20] MEDS: CEFEPIME INJECTION 2,000 MG in NS (IVPB) 50 ML IV SCH ×2 (05:30→17:49)
[2018-03-20] MEDS: LEVOFLOXACIN 750 MG/150 ML IV 150 ML IV SCH (05:30)
[2018-03-20] MEDS ORDERED: FUROSEMIDE 40 MG/4 ML INJ (LASIX) IVP NR (06:30)
--- NOTE | 2018-03-20 06:33 | Pulmonary Progress Note ---
Subjective Time Seen by Provider: 06:33 Subjective/Events-last exam CXR appears worse. He is requiring more oxygen. Exam Exam Vital Signs Date Time Temp Pulse Resp B/P (MAP) Pulse Ox O2 Delivery O2 Flow Rate FiO2 03/20/18 03:57 121 121/77 (92) 03/20/18 02:50 90 Trach Collar 15.00 100 03/20/18 02:40 90 Trach Collar 15.00 100 03/20/18 00:10 97.8 119 17 118/57 (77) 91 Trach Collar 30.00 8.00 03/19/18 22:41 90 Trach Collar 15.00 100 03/19/18 20:00 Trach Collar 8.00 30 03/19/18 19:25 98.2 122 18 114/83 (93) 89 Trach Collar 30.00 8.00 03/19/18 19:04 90 Trach Collar 12.00 70 03/19/18 15:30 97.3 120 20 125/69 (87) 90 Trach Collar 30.00 8.00 03/19/18 15:13 90 Trach Collar 12.00 50 03/19/18 14:40 18 03/19/18 12:00 98.1 108 18 112/62 (79) 95 Trach Collar 30.00 8.00 03/19/18 10:39 91 Trach Collar 12.00 50 03/19/18 09:00 Trach Collar 8.00 30 03/19/18 08:00 97.6 114 18 109/77 (88) 94 Trach Collar 30.00 8.00 03/19/18 07:40 92 Trach Collar 12.00 50 03/19/18 07:00 117 I & O 03/20/18 07:00 Intake Total 1000 ml Output Total 400 ml Balance 600 ml General Appearance: No Apparent Distress, Chronically ill, Cachetic HEENT: PERRL/EOMI; No Scleral Icterus (L), No Scleral Icterus (R) Neck: Supple; No JVD; Other (trach) Respiratory: No Respiratory Distress, Decreased Breath Sounds, Other (trach dependent- on trach shield) Cardiovascular: Regular Rate, Rhythm, No Murmur Capillary Refill: Less Than 3 Seconds Gastrointestinal: normal bowel sounds, guarding, tenderness (left upper quadrant) Extremity: No Calf Tenderness, No Pedal Edema Neurologic/Psychiatric: Alert, Oriented x3, No Motor/Sensory Deficits Skin: Normal Color, Warm/Dry Lymphatic: No Adenopathy Results Lab Laboratory Tests 03/19/18 04:50 03/20/18 04:30 Assessment/Plan Assessment/Plan 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 -Oncology consulted -PT was told he is not a candidate for chemo or radiation therapy by oncology. 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 Medical care is futile. PT was told he is not a candidate for chemo or radiation therapy by oncology. PEG Tube has become dislodged and can not be replaced. He is still currently a full code per his/ family request. Family has been extensively educated about disease and poor prognosis. Pt needs to be hospice care only. Family meeting scheduled for today. ALVINA ARAIZA DO March 20, 2018 06:33
[2018-03-20] MEDS ORDERED: D5 1/2 NS 1000 ML IV SOLUTION 1,000 ML IV ONE ×2 (06:41→16:31)
[2018-03-20] MEDS: morphine PCA 30 MG/30 ML VIAL IV PRN (06:44)
[2018-03-20] MEDS: D5 1/2 NS 1000 ML IV SOLUTION 1,000 ML IV SCH (06:46)
[2018-03-20 08:00] VITALS: BP 113/70
--- NOTE | 2018-03-20 09:03 | Diagnostic Imaging Report ---
INDICATION: Respiratory distress. COMPARISON: 03/19/2018. FINDINGS: The heart size is normal. There is moderate congestive failure. There are bibasilar consolidations and bilateral pleural effusions. There is no pneumothorax. The tracheostomy tube and PICC line are in satisfactory position. IMPRESSION: Moderate congestive failure with bibasilar consolidations and bilateral pleural effusions. Dictated by: Dictated on workstation # [id number]
[2018-03-20] MEDS: PANTOPRAZOLE 40 MG/10 ML (PROTONIX) VIAL IV SCH (09:11)
--- NOTE | 2018-03-20 09:52 | Physical Therapy Progress Note ---
Therapy Progress Note PT to dismiss patient from services due to decline in medical status. RN notified and agrees. HELEN NG PT March 20, 2018 09:52
[2018-03-20] MEDS ORDERED: LIDOCAINE UROJET 2% GEL 10 ML PKG TOP NR (11:15)
[2018-03-20 12:00] VITALS: BP 83/60
[2018-03-20 15:20] VITALS: BP 95/65
--- NOTE | 2018-03-20 17:10 | Progress Note-Standard ---
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 Patient was on combined chemotherapy and radiation which was started at [facility]. He had more than 2 weeks break in treatment because of respiratory failure and ventilator dependence. He is significantly deconditioned. Radiation therapy versus restarted for 1 week but patient has evidence of progressive disease by CT angiogram. Because of this radiation therapy was stopped earlier this week. Patient was having increasing pain yesterday and was started on JAVA PORTAL DEVELOPER with morphine. He developed respiratory depression last night to have prompting the JAVA PORTAL DEVELOPER to be stopped. Currently he is on 1 mg bolus every 30 minutes as needed. He is resting comfortably and sleeping most of the time. He is receiving D5 normal saline as the PEG tube has been dislodged. Met with the patient's who has the medical power of strategic advisor for healthcare and discussed his current condition. He has rapidly progressed see if disease and is not a candidate for radiation therapy. He cannot tolerate chemotherapy and I would not recommend this. We discussed the option of best supportive care and she was willing to proceed with this. I also discussed DO NOT RESUSCITATE status and she was agreeable to this. I will place the order today. We will continue with best supportive care. His prognosis is poor and he is considered terminal. Will follow patient with you. HUBERT GUTIÉRREZ March 20, 2018 17:10
[2018-03-20] MEDS: KETOROLAC 30 MG/ML VIAL IV PRN (18:39)
[2018-03-20 19:10] VITALS: BP 96/66
[2018-03-21] VITALS: BP 83/53
[2018-03-21 00:08] VITALS: BP 39/22
[2018-03-21] MEDS: RT-ALBUTEROL/IPRATROPIUM 3 ML (DUONEB) VIAL INH PRN (00:10)
--- NOTE | 2018-03-21 11:18 | Discharge Summary-Hospitalist ---
Diagnosis/Chief Complaint Date of Admission March 15, 2018 at 21:20 Date of Discharge March 21, 2018 at 00:20 Admission Diagnosis Pneumonia Discharge Diagnosis (1) Pneumonia Status: Acute Assessment & Plan: Continue on Vanc and Levaquin and Cefepime MAT protocol Sputum culture Blood cultures Meets sepsis criteria based off tachycardia and WBC Not severe sepsis- no hypotension Pleural effusion noted as well Dr Mims consulted, appreciate recs Discussed with him this AM - Will attempt to avoid lasix due to pericardial effusion and improving without it (2) Malignant neoplasm of unspecified part of unspecified bronchus or lung Status: Chronic Assessment & Plan: Metastatic lung cancer currently on Chemo Will consult Oncology (3) Sepsis Status: Acute Assessment & Plan: Abx as above Not severe sepsis Await cultures (4) Debilitated Status: Chronic Assessment & Plan: PT/OT Just DC-ed from IRU (5) PEG (percutaneous endoscopic gastrostomy) adjustment/replacement/removal Status: Chronic Assessment & Plan: Continue PEG feeds (6) Normocytic anemia Assessment & Plan: Likely due to malnutrition and chemo Trend (7) Prophylactic measure Assessment & Plan: Xarelto NS PEG feeds Discharge Summary Discharge Physical Exam Allergies: Coded Allergies: No Known Drug Allergies (Unverified , 03/30/16) Vitals & I&Os Vital Signs Date Time Temp Pulse Resp B/P (MAP) Pulse Ox O2 Delivery O2 Flow Rate FiO2 03/21/18 00:08 67 6 39/22 (28) 80 Trach Collar 100.00 12.00 03/21/18 00:05 100 03/21/18 00:00 96.2 General Appearance: Other () Hospital Course Hospital course: Patient had a very difficult hospital course he was admitted for pneumonia and sepsis from inpatient rehabilitation unit where he had gone after a long stay of 16 days in the ICU for pneumonia and respiratory failure. Patient had extensive lung cancer that had metastasized to most of the trachea and upper airway making it very difficult for us to have any meaningful modification of this aggressive disease process. Palliative care was consulted and he oncology and pulmonology assessed the patient to have no other options and any other aggressive treatment would be considered futile so he was maintained on comfort care although the night before he he had respiratory depression which responded to Narcan and then he was ultimately made DO NOT RESUSCITATE and in an uneventful manner. Labs (last 24 hrs) Microbiology 03/15/18 Blood Culture - Final, Complete No growth 03/15/18 Urine Culture - Final, Complete Klebsiella pneumoniae Patient resulted labs reviewed. Imaging: Reviewed Imaging Films, Reviewed Imaging Report Discussion & Recommendations Discharge Planning: <30 minutes discharge planning Discharge Home Medications: Active Scripts Active Reported Hydromorphone HCl 2 Mg Tablet 2 Mg PEG Q2H PRN Duragesic Patch 75 MCG (Fentanyl) 1 Each Patch.td72 75 Mcg TD Q72H Clonazepam 0.5 Mg Tablet 0.5 Mg PEG HS Senna-S Tablet (Sennosides/Docusate Sodium) 1 Each Tablet 1 Tab PEG BID Transderm-Scop (Scopolamine) 1 Each Patch.td72 1 Patch TD Q72H Xarelto (Rivaroxaban) 20 Mg Tablet 20 Mg PEG HS Prednisone 10 Mg Tab 10 Mg PEG DAILY Iprat-Albut 0.5-3(2.5) mg/3 ml (Ipratropium/Albuterol Sulfate) 3 Ml Ampul.neb 3 Ml IH Q2H PRN Lorazepam 1 Mg Tablet 1 Mg PEG Q8H PRN Simethicone 80 Mg Tab.chew 80 Mg PEG Q6H PRN Instructions to patient/family Please see electronic discharge instructions given to patient. Clinical Quality Measures DVT/VTE Risk/Contraindication: Risk Factor Score Per Nursin RFS Level Per Nursing on Admit: 3=High Problem Qualifiers (1) Pneumonia: Pneumonia type: due to unspecified organism Laterality: bilateral Lung location: unspecified part of lung Qualified Codes: J18.9 - Pneumonia, unspecified organism (2) Sepsis: Sepsis type: sepsis due to unspecified organism Qualified Codes: A41.9 - Sepsis, unspecified organism BARI DIAZ DO March 21, 2018 11:18
== END 2018-03-21 00:20 | disposition expired | DRG 871 ==
LOC: EDUNIT# 19:18 → ER 19:19 → ICU 21:20 → 4TH 03-17 18:07
PROVIDERS: ADMIT Family Medicine; ATTEND Family Medicine
DX: A41.9 Sepsis, unspecified organism (principal); J18.9 Pneumonia, unspecified organism; N30.01 Acute cystitis with hematuria; J91.0 Malignant pleural effusion; I87.1 Compression of vein; I31.3 Pericardial effusion (noninflammatory); R64 Cachexia; E46 Unspecified protein-calorie malnutrition; C79.72 Secondary malignant neoplasm of left adrenal gland; C78.89 Secondary malignant neoplasm of other digestive organs; C77.1 Secondary and unspecified malignant neoplasm of intrathoracic lymph nodes; J98.11 Atelectasis; R06.03 Acute respiratory distress; K22.2 Esophageal obstruction; J39.8 Other specified diseases of upper respiratory tract; G89.3 Neoplasm related pain (acute) (chronic); D53.9 Nutritional anemia, unspecified; D64.81 Anemia due to antineoplastic chemotherapy; E83.42 Hypomagnesemia; T45.1X5A Adverse effect of antineoplastic and immunosuppressive drugs, initial encounter; J38.00 Paralysis of vocal cords and larynx, unspecified; K31.84 Gastroparesis; K59.00 Constipation, unspecified; F41.9 Anxiety disorder, unspecified; F32.9 Major depressive disorder, single episode, unspecified; Z93.0 Tracheostomy status; Z93.1 Gastrostomy status; Z85.118 Personal history of other malignant neoplasm of bronchus and lung; Z87.891 Personal history of nicotine dependence; Z79.01 Long term (current) use of anticoagulants
CPT/HCPCS: 36415; 36600; 71045; 71275; 80048; 80053; 80202; 81000; 82274; 82805; 83605; 83735; 83874; 83880; 84100; 84484; 85007; 85025; 85027; 85610; 85730; 87040; 87077; 87088; 87186; 93005; 94640; 94760; 94799; 96365; 96375; 99212